=== PATIENT | female | born 1970 | race Caucasian/White ===

== ENCOUNTER 2017-09-06 10:21 | Emergency (ER) | payer BC, SELFPAY | END 2017-09-06 12:20 | disposition home or self-care (01) | PROVIDERS: Emergency Provider Emergency Medicine; Family Provider Internal Medicine Adolescent Medicine; Visit Provider Emergency Medicine | DX: R51 Headache (principal); Z86.69 Personal history of other diseases of the nervous system and sense organs | CPT/HCPCS: 70450; 96372; 99284 ==

== ENCOUNTER → 2017-09-21 09:58 | Outpatient (CLI) | payer BC, SELFPAY ==
[2017-09-21 11:34] LABS: Thyroid Stimulating Hormone 1.58 uIU/ml (0.358-3.740)
[2017-09-22 19:43] LABS: FSH 85.2 mIU/mL (.); LH 74.8 mIU/mL (.)
== END ==
PROVIDERS: PCP Internal Medicine Adolescent Medicine; Visit Provider Internal Medicine Adolescent Medicine
DX: R23.2 Flushing (principal); R63.1 Polydipsia
CPT/HCPCS: 36415; 83001; 83002; 83036; 84443

== ENCOUNTER → 2018-03-11 08:37 | Outpatient (CLI) | payer BC, SELFPAY ==
--- NOTE | 2018-03-11 08:42 | FL_ITS ---
FL upper GI esophagus w/air HISTORY: knot in throat with voice changing ORDERING PHYSICIAN: Giovanny Fernando MD PATIENT AGE: 47 years Comparison: None FINDINGS: The esophagus, stomach, and duodenum have an unremarkable appearance. There is no evidence of hiatal hernia. No ulcer or mass evident. No mucosal abnormalities apparent. There is normal peristalsis. The duodenal C-loop is nondisplaced. There was minimal amount of gastroesophageal reflux. No hiatal hernia apparent FLUOROSCOPY TIME : 1 minute and 39 seconds. IMPRESSION: Mild GE reflux otherwise negative GI and barium swallow
== END ==
PROVIDERS: Family Provider Internal Medicine Adolescent Medicine; PCP Internal Medicine Adolescent Medicine; Visit Provider Internal Medicine Adolescent Medicine
DX: K21.9 Gastro-esophageal reflux disease without esophagitis (principal); R13.14 Dysphagia, pharyngoesophageal phase
CPT/HCPCS: 74241

== ENCOUNTER → 2018-06-05 09:50 | Outpatient (CLI) | payer BC, SELFPAY ==
--- NOTE | 2018-06-05 09:52 | XR_ITS ---
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 No lytic or blastic change. There is normal mineralization.. The joint spaces are well-preserved. No significant degenerative/arthritic changes. No erosive changes evident. IMPRESSION: Negative, no acute finding
== END ==
PROVIDERS: PCP Internal Medicine Adolescent Medicine; Visit Provider Orthopaedic Surgery
DX: S99.929A Unspecified injury of unspecified foot, initial encounter (principal)
CPT/HCPCS: 73630

== ENCOUNTER 2018-06-05 10:46 | Outpatient (RCR) | payer BC, SELFPAY | END 2018-06-06 09:51 | disposition home or self-care (01) | LOC: PT 10:46 | PROVIDERS: Visit Provider Orthopaedic Surgery | DX: S82.91XA Unspecified fracture of right lower leg, initial encounter for closed fracture (principal) | CPT/HCPCS: 97760 ==

== ENCOUNTER → 2018-06-12 13:18 | Outpatient (CLI) | payer BC, SELFPAY ==
--- NOTE | 2018-06-12 13:20 | XR_ITS ---
XR foot RT min 3V HISTORY: Right foot pain ITS.REASON: 1 week follow up ORDERING PHYSICIAN: Kelvin Vela MD PATIENT AGE: 47 years COMPARISON: None FINDINGS: No fracture or dislocation. No lytic or blastic change. There is normal mineralization.. The joint spaces are well-preserved. No significant degenerative/arthritic changes. No erosive changes evident. Vein calcification is present along the base of the small calcaneal spur nonspecific and unchanged IMPRESSION: No acute finding
== END ==
PROVIDERS: PCP Internal Medicine Adolescent Medicine; Visit Provider Orthopaedic Surgery
DX: S82.61XA Displaced fracture of lateral malleolus of right fibula, initial encounter for closed fracture (principal); S82.839A Other fracture of upper and lower end of unspecified fibula, initial encounter for closed fracture
CPT/HCPCS: 73630

== ENCOUNTER → 2018-06-20 10:10 | Outpatient (CLI) | payer BC, SELFPAY ==
--- NOTE | 2018-06-20 10:11 | XR_ITS ---
XR ankle RT min 3V HISTORY: Follow-up fracture, pain ITS.REASON: follow up ORDERING PHYSICIAN: Kelvin Vela MD PATIENT AGE: 47 years Comparison: 05/31/2018 FINDINGS: There is been no significant change in the avulsion fracture at the tip of the lateral malleolus along with a nondisplaced cortical fracture involving the distal fibula near the level the ankle joint. IMPRESSION: No change avulsion fracture of the tip of the lateral malleolus along with a nondisplaced transverse fracture of the metaphyseal region of the distal fibula
== END ==
PROVIDERS: PCP Internal Medicine Adolescent Medicine; Visit Provider Orthopaedic Surgery
DX: S82.61XA Displaced fracture of lateral malleolus of right fibula, initial encounter for closed fracture (principal); S82.839A Other fracture of upper and lower end of unspecified fibula, initial encounter for closed fracture
CPT/HCPCS: 73610

== ENCOUNTER → 2018-06-28 10:50 | Outpatient (CLI) | payer BC, SELFPAY ==
[2018-06-28 12:16] LABS: Basophils # 0.1 K/mm3 (0-0.2); Basophils % 0.8 % (0.1-2.0); Eosinophils # 0.2 K/mm3 (0.0-0.4); Eosinophils % 3.1 % (0.1-12.0); Hematocrit 36.3 % (37.0-47.0); Hemoglobin 12.6 g/dL (12.2-16.2); Lymphocytes # 1.9 K/mm3 (0.7-4.5); Lymphocytes % 26.6 K/mm3 (10-50); Mean Corpuscular HGB Conc 34.7 g/dL (31.8-35.4); Mean Corpuscular Hemoglobin 32.1 pg (27.0-31.2); Mean Corpuscular Volume 92.4 fl (81-99); Mean Platelet Volume 6.6 fl (7.4-10.4); Monocytes # 0.3 K/mm3 (0.1-1.0); Monocytes % 4.7 % (1.7-9.3); Neutrophils # 4.7 K/mm3 (1.8-7.8); Neutrophils % 64.9 % (37.0-80.0); Platelet Count 357 K/mm3 (142-424); Red Blood Count 3.93 M/mm3 (4.20-5.40); Red Cell Distribution Width 13.8 % (11.5-17.5); White Blood Count 7.2 K/mm3 (4.8-10.8)
[2018-06-28 13:09] LABS: Alanine Aminotransferase 21 U/L (12-78); Albumin Level 3.4 gm/dL (3.4-5.0); Alkaline Phosphatase 121 U/L (46-116); Anion Gap 10.4 mEq/L (5-15); Aspartate Amino Transferase 15 U/L (15-37); Bilirubin,Total 0.4 mg/dL (0.2-1.0); Blood Urea Nitrogen 18 mg/dL (7-18); Calcium 8.9 mg/dL (8.5-10.1); Carbon Dioxide 29 mmol/L (21.0-32.0); Chloride 104 mmol/L (98-107); Chol/HDL Ratio 3.2 (1-3.5); Cholesterol 245 mg/dL (140-200); Creatinine,Serum 0.67 mg/dL (0.55-1.02); Estimated Glomerular Filt Rate 95 ml/min (>60); Free Thyroxine Index 3.2 ug/dL (5.93-13.13); GFR (African American) 115 ML/MIN (>60); Globulin 3.4 gm/dl (1.3-3.2); Glucose 88 mg/dL (74-106); HDL Cholesterol 76 mg/dL (29-89); LDL Cholesterol 158 mg/dL (0-130); Potassium 4.4 mmoL/L (3.5-5.1); Sodium 139 mmol/L (136-145); Thyroid Stimulating Hormone 2.62 uIU/ml (0.358-3.740); Total Protein,Serum 6.8 gm/dL (6.4-8.2); Triglycerides 54 mg/dL (30-200); Triiodothryronine (T3) Uptake 32 % (31-39); VLDL Cholesterol 11 mg/dL (0-40)
[2018-06-30 07:54] LABS: Vitamin B12 1052 pg/mL (232-1245); Vitamin D 25 Hydroxy 23.9 ng/mL (30.0-100.0)
== END ==
PROVIDERS: PCP Internal Medicine Adolescent Medicine; Visit Provider Internal Medicine Adolescent Medicine
DX: R73.9 Hyperglycemia, unspecified (principal); R53.83 Other fatigue; E53.8 Deficiency of other specified B group vitamins; E55.9 Vitamin D deficiency, unspecified
CPT/HCPCS: 36415; 80053; 80061; 82607; 82652; 83036; 84436; 84443; 84479; 85025

== ENCOUNTER → 2018-07-03 08:47 | Outpatient (CLI) | payer BC, SELFPAY ==
--- NOTE | 2018-07-03 08:50 | FL_ITS ---
EXAM: Barium swallow/esophagram. INDICATION: ITS.REASON: Dsyphagia, prior esophageal stricture dilatation ORDERING PHYSICIAN: Jori Castro MD PATIENT AGE: 47 years COMPARISON: None TECHNIQUE: In the upright position the patient was observed to swallow barium in both the AP and lateral view. The cervical esophagus was examined under fluoroscopy with images obtained. The patient was then placed prone in the right anterior oblique position and was observed to swallow barium with Valsalva technique . FLUOROSCOPY TIME: 38 seconds FINDINGS: There was no evidence of aspiration. There was normal peristalsis. No filling defects or mucosal abnormalities. No masses or strictures. No hernia. No strictures apparent. Reflux was not demonstrated in the course of the exam. Esophagus was midline. IMPRESSION: Negative barium swallow.
== END ==
PROVIDERS: PCP Internal Medicine Adolescent Medicine; Visit Provider Otolaryngology
DX: R13.10 Dysphagia, unspecified (principal)
CPT/HCPCS: 74220

== ENCOUNTER → 2018-07-11 08:43 | Outpatient (CLI) | payer BC, SELFPAY ==
--- NOTE | 2018-07-11 08:44 | XR_ITS ---
XR ankle RT min 3V HISTORY: Follow-up fracture, pain ITS.REASON: follow up right lateral malleolous fx ORDERING PHYSICIAN: Kelvin Vela MD PATIENT AGE: 47 years Comparison: 06/20/2018 FINDINGS: Avulsion fracture of the tip the lateral malleolus is less distracted suggesting early healing. Otherwise negative. IMPRESSION: Decreased distraction of the avulsion fracture fragment at the tip of the lateral malleolus
== END ==
PROVIDERS: PCP Internal Medicine Adolescent Medicine; Visit Provider Orthopaedic Surgery
DX: S82.61XA Displaced fracture of lateral malleolus of right fibula, initial encounter for closed fracture (principal)
CPT/HCPCS: 73610

== ENCOUNTER → 2018-08-08 10:47 | Outpatient (CLI) | payer BC, SELFPAY ==
--- NOTE | 2018-08-08 10:48 | XR_ITS ---
XR ankle RT min 3V HISTORY: Follow-up fracture ITS.REASON: follow up ORDERING PHYSICIAN: Kelvin Vela MD PATIENT AGE: 47 years Comparison: 07/11/2018 FINDINGS: No change in the nondisplaced avulsion fracture at the tip of the lateral malleolus. No new abnormalities evident. IMPRESSION: No change in nondisplaced avulsion fracture at the tip of the lateral malleolus
== END ==
PROVIDERS: PCP Internal Medicine Adolescent Medicine; Visit Provider Orthopaedic Surgery
DX: S82.61XA Displaced fracture of lateral malleolus of right fibula, initial encounter for closed fracture (principal)
CPT/HCPCS: 73610

== ENCOUNTER 2018-08-25 13:00 | Outpatient (RCR) | payer BC, SELFPAY ==
--- NOTE | 2018-07-17 13:47 | HMH.PTOPEV ---
PT Outpatient Evaluation Rehab PT Outpatient Evaluation Start: 07/17/18 13:35 Freq: Status: Active Protocol: Document 07/17/18 13:35 SERAFIN (Rec: 07/17/18 13:47 SERAFIN [id number]) Electronically Signed By Federico Kulkarni, PT 07/17/18 13:35 Outpatient Therapy Subjective History Subjective History Pt reports being knocked down by horse on 05/31/18, with Xray revealing fx to R lateral malleolus. Pt reports R ankle, R thigh, and neck pain following accident, with all feeling better in the last 2-3 weeks. Pt reports limitations in R ankle ROM, and strength, reports very little pain. Chief Complaint Pain Stiff Weakness Symptom Type Ache Dull Symptoms Relieved By Rest/Positioning Ice Symptoms Aggravated By Physical Activity Walking Prior Functional Limitations None Current Functional Limitations Standing Walking Stairs Symptom Description Intermittent Level of pain today (0-10) 0 Pain scale - at its best (0-10) 0 Pain scale - at its worst (0-10) 3 Ankle/Foot Eval Gait Observation General Gait Pattern Observation Wide Based Gait Palpation Tenderness right Ankle/Foot Palpation Findings Tenderness Ankle/Foot Palpation Overall Comment 2-3/4 lateral jt line, sinus tarsi ATF TTP positive PTF TTP positive CF TTP positive ROM left Ankle/Foot Dorsiflexion w/Knee Extended 0-15 Active Range Motion (degrees) Ankle/Foot Plantar Flexion Active Range 0-50 of Motion (degrees) Ankle/Foot Eversion Active Range of 0-20 Motion (degrees) Ankle/Foot Inversion Active Range of 0-50 Motion (degrees) right Ankle/Foot Dorsiflexion w/Knee Extended 0-10 Active Range Motion (degrees) Ankle/Foot Plantar Flexion Active Range 0-50 of Motion (degrees) Ankle/Foot Eversion Active Range of 0-10 Motion (degrees) Ankle/Foot Inversion Active Range of 0-25 Motion (degrees) Ankle/Foot ROM Limitations Soft Tissue Tightness MMT left Ankle Dorsiflexion Strength Grade 5 Normal Ankle Plantarflexion Strength Grade 5 Normal Foot Eversion Strength Grade 5 Normal Foot Inversion Strength Grade 5 Normal
--- NOTE | 2018-08-15 14:51 | HMH.RHREAS ---
Rehab Reassessment Rehab OP Re-assessment Start: 08/15/18 14:46 Freq: Status: Active Protocol: Document 08/15/18 14:46 SERAFIN (Rec: 08/15/18 14:51 [email or web address] [id number]) Electronically Signed By Federico Kulkarni, PT 08/15/18 14:46 Rehab Re-assessment Subjective Subjective PT REPORT 0-4/10 R ANKLE PAIN ON VAS, AND FEELS 75% BETTER SINCE I EVAL Objective Objective Notes AROM: R ANKLE DF 0-15, PF 0-40 , INV 0-40, EVR 0-25 FIG 8: 56CM MMT: R ANKLE DF 5/5, PF 4+/5, INV 4/5, EVR 4/5 TTP: R ANKLE CF LIG 09/12 Assessment Progress Assessment Progressing as Expected Assessment Notes PT WITH IMPROVEMENTS IN ROM, STRENGTH, AND TTP Patient goals met STG'S 03/16 LTG'S 10/17 Goals Not Met STG'S 09/16, LTG'S 02/14 Plan Plan PT TO CONT. W/SKILLED P.T. TO MAKE FURTHER IMPROVEMENTS IN ROM, STRENGTH, AND TTP TO ALLOW FOR OPTIMAL FUNCTION Frequency of Therapy 1-2/WK Duration of therapy 2-4 WKS Time and Billing Re-Eval Time 15 Re-Eval Billing Units 1 PHYSICIAN CERTIFICATION: I certify the specified therapy services for Sera Matthews are required, authorized, and reviewed every 30 days.
== END 2018-08-25 13:05 | disposition home or self-care (01) ==
LOC: PT 13:00
PROVIDERS: Visit Provider Orthopaedic Surgery
DX: S82.61XA Displaced fracture of lateral malleolus of right fibula, initial encounter for closed fracture (principal)
CPT/HCPCS: 97010; 97014; 97016; 97033; 97110; 97112; 97140; 97163; 97164; G0283

== ENCOUNTER → 2019-02-09 16:47 | Outpatient (CLI) | payer BC, SELFPAY ==
[2019-02-09 17:25] LABS: Basophils # 0.1 K/mm3 (0-0.2); Basophils % 0.8 % (0.1-2.0); Eosinophils # 0.2 K/mm3 (0.0-0.4); Eosinophils % 2.2 % (0.1-12.0); Hematocrit 37.7 % (37.0-47.0); Hemoglobin 12.5 g/dL (12.2-16.2); Lymphocytes # 2.4 K/mm3 (0.7-4.5); Lymphocytes % 29.3 % (10-50); Mean Corpuscular HGB Conc 33.2 g/dL (31.8-35.4); Mean Corpuscular Hemoglobin 28.9 pg (27.0-31.2); Mean Corpuscular Volume 87.1 fl (81-99); Mean Platelet Volume 6.4 fl (7.4-10.4); Monocytes # 0.4 K/mm3 (0.1-1.0); Monocytes % 4.9 % (1.7-9.3); Neutrophils # 5.2 K/mm3 (1.8-7.8); Neutrophils % 62.9 % (37.0-80.0); Platelet Count 343 K/mm3 (142-424); Red Blood Count 4.33 M/mm3 (4.20-5.40); Red Cell Distribution Width 13.4 % (11.5-17.5); White Blood Count 8.2 K/mm3 (4.8-10.8)
[2019-02-09 19:51] LABS: Alanine Aminotransferase 27 U/L (12-78); Albumin Level 3.4 gm/dL (3.4-5.0); Albumin/Globulin Ratio 1.1 (1.1-1.8); Alkaline Phosphatase 118 U/L (46-116); Aspartate Amino Transferase 14 U/L (15-37); Bilirubin,Total 0.2 mg/dL (0.2-1.0); Blood Urea Nitrogen 20 mg/dL (7-18); Carbon Dioxide 25 mmol/L (21.0-32.0); Chloride 104 mmol/L (98-107); Chol/HDL Ratio 3.8 (1-3.5); Cholesterol 188 mg/dL (140-200); Creatinine,Serum 0.63 mg/dL (0.55-1.02); Estimated Glomerular Filt Rate 101 ml/min (>60); GFR (African American) 123 ML/MIN (>60); Globulin 3.1 gm/dl (1.3-3.2); Glucose 93 mg/dL (74-106); HDL Cholesterol 50 mg/dL (29-89); LDL Cholesterol 125 mg/dL (0-130); Sodium 141 mmol/L (136-145); Total Protein,Serum 6.5 gm/dL (6.4-8.2); Triglycerides 63 mg/dL (30-200); VLDL Cholesterol 13 mg/dL (0-40)
[2019-02-13 06:23] LABS: Vitamin B12 582 pg/mL (232-1245); Vitamin D 25 Hydroxy 38.4 ng/mL (30.0-100.0)
== END ==
PROVIDERS: Visit Provider Internal Medicine Adolescent Medicine
DX: Z00.00 Encounter for general adult medical examination without abnormal findings (principal); E53.8 Deficiency of other specified B group vitamins; E55.9 Vitamin D deficiency, unspecified
CPT/HCPCS: 80053; 80061; 82607; 82652; 85025

== ENCOUNTER 2019-08-20 16:28 | Outpatient (RCR) | payer BC, SELFPAY | END 2019-08-20 16:45 | disposition home or self-care (01) | LOC: PT 16:28 | PROVIDERS: Visit Provider Internal Medicine Adolescent Medicine | DX: M84.375D Stress fracture, left foot, subsequent encounter for fracture with routine healing (principal) | CPT/HCPCS: 97760 ==

== ENCOUNTER → 2019-08-28 15:50 | Outpatient (CLI) | payer BC, SELFPAY ==
--- NOTE | 2019-08-28 15:52 | MR_ITS ---
PROCEDURE: MR FOOT LT WO CON CLINICAL INDICATION: STRESS FX OF LEFT FOOT Lateral sided foot pain worse when walking COMPARISON: XR FOOT LT MIN 3V from 08/11/2019 TECHNIQUE: Routine multiplanar multi echo sequences are performed without gadolinium enhancement. FINDINGS: The tibiofibular and talofibular ligaments appear intact. There is increased T2 signal involving the entire length of the 5th metatarsal. There is a transverse area of decreased T2 signal in the proximal shaft of the 5th metatarsal consistent with a nondisplaced fracture. There is some mild surrounding edema of the soft tissues of the 5th metatarsal. Small amount of fluid is present along the talocalcaneal region posteriorly and along the the tibiofibular area anteriorly. The Achilles tendon has an unremarkable appearance. The peroneal tendons posterior tibial flexor hallucis longus, flexor digitorum longus and extensor tendons have an unremarkable appearance IMPRESSION: Nondisplaced fracture at the proximal aspect of the 5th metatarsal with a moderate amount of bone marrow edema and surrounding soft tissue edema Dictated by: Lakhwinder Mesa MD 08/30/2019 19:51 Electronically signed by Lakhwinder Mesa MD in [place] 08/30/2019 19:51
== END ==
PROVIDERS: PCP Internal Medicine Adolescent Medicine; Visit Provider Internal Medicine Adolescent Medicine
DX: M84.375D Stress fracture, left foot, subsequent encounter for fracture with routine healing (principal)
CPT/HCPCS: 73718

== ENCOUNTER → 2019-09-14 16:32 | Outpatient (CLI) | payer BC, SELFPAY ==
--- NOTE | 2019-09-14 | XR_ITS ---
PROCEDURE: XR CHEST 2V CLINICAL HISTORY: FAMILY HX OF CAD; PREOP COMPARISON: [id number] XR chest portable from 05/31/2018 FINDINGS: The cardiomediastinal silhouette and pulmonary vascularity are within normal limits. The lungs are clear without infiltrates, suspicious nodules, or pleural effusions. There is evidence of old granulomatous disease. There is some faint increased density in the left lung base at the 6th rib anteriorly and may be due to summation artifact and may be confirmed follow-up. There are degenerative changes in the midthoracic spine. IMPRESSION: No definite acute finding. Possible summation artifact versus pulmonary nodule left lower lung zone which may be confirmed with follow-up Dictated by: Lakhwinder Mesa MD 09/14/2019 19:30 Electronically signed by Lakhwinder Mesa MD in [place] 09/14/2019 19:30
[2019-09-14 16:51] LABS: Basophils # 0.1 K/mm3 (0-0.2); Basophils % 0.6 % (0.1-2.0); Eosinophils # 0.2 K/mm3 (0.0-0.4); Hematocrit 43.5 % (37.0-47.0); Hemoglobin 13.4 g/dL (12.2-16.2); Lymphocytes # 3.1 K/mm3 (0.7-4.5); Lymphocytes % 29.3 % (10-50); Mean Corpuscular HGB Conc 30.8 g/dL (31.8-35.4); Mean Corpuscular Hemoglobin 28.1 pg (27.0-31.2); Mean Corpuscular Volume 91.4 fl (81-99); Mean Platelet Volume 6.6 fl (7.4-10.4); Monocytes # 0.4 K/mm3 (0.1-1.0); Monocytes % 3.9 % (1.7-9.3); Neutrophils # 6.8 K/mm3 (1.8-7.8); Neutrophils % 64.2 % (37.0-80.0); Platelet Count 436 K/mm3 (142-424); Red Blood Count 4.76 M/mm3 (4.20-5.40); White Blood Count 10.7 K/mm3 (4.8-10.8)
--- NOTE | 2019-09-14 16:51 | ECG_ITS ---
APPROVED REPORT Exam: Resting ECG HR:78 bpm ECG Measurements Heart Rate 78 AXES MA 152 P 45 QRSd 144 QRS -39 QT 402 T 95 QTc 458 <Conclusion> Normal sinus rhythm Left axis deviation Left bundle branch block Abnormal ECG Electronically signed by : Oneal Castro, 09/14/2019 18:39:16
[2019-09-14 20:56] LABS: Alanine Aminotransferase 18 U/L (12-78); Albumin Level 3.8 gm/dL (3.4-5.0); Albumin/Globulin Ratio 1.2 (1.1-1.8); Alkaline Phosphatase 151 U/L (46-116); Anion Gap 14.2 mEq/L (5-15); Aspartate Amino Transferase 11 U/L (15-37); Bilirubin,Total 0.1 mg/dL (0.2-1.0); Blood Urea Nitrogen 18 mg/dL (7-18); Carbon Dioxide 29 mmol/L (21.0-32.0); Chloride 104 mmol/L (98-107); Creatinine,Serum 0.89 mg/dL (0.55-1.02); Estimated Glomerular Filt Rate 68 ml/min (>60); GFR (African American) 82 ML/MIN (>60); Globulin 3.3 gm/dl (1.3-3.2); Glucose 91 mg/dL (74-106); Potassium 4.2 mmoL/L (3.5-5.1); Sodium 143 mmol/L (136-145); Total Protein,Serum 7.1 gm/dL (6.4-8.2)
[2019-09-16 11:06] LABS: Vitamin D 25 Hydroxy 37.8 ng/mL (30.0-100.0)
== END ==
PROVIDERS: Visit Provider Podiatrist
DX: S99.192A Other physeal fracture of left metatarsal, initial encounter for closed fracture (principal); Z01.818 Encounter for other preprocedural examination; M84.375G Stress fracture, left foot, subsequent encounter for fracture with delayed healing
CPT/HCPCS: 36415; 71046; 80053; 82652; 85025; 93005

== ENCOUNTER → 2019-09-29 08:10 | Outpatient (CLI) | payer BC, SELFPAY ==
--- NOTE | 2019-09-29 08:13 | XR_ITS ---
PROCEDURE: XR ANKLE WT BEARING LT MIN 3V CLINICAL INDICATION: post-op COMPARISON: ANKCMRT XR ankle RT min 3V from 06/20/2018 ANKCMRT XR ankle RT min 3V from 07/11/2018 ANKCMRT XR ankle RT min 3V from 08/08/2018 FINDINGS: There is a posterior plaster splint. A reduction screw appears to lie along the longitudinal axis of the proximal 5th metatarsal. No acute fracture or dislocation is apparent. IMPRESSION: No acute findings. Dictated by: Erik Leiva 09/29/2019 08:56 Electronically signed by Erik Leiva in [place] 09/29/2019 08:56
--- NOTE | 2019-09-29 08:13 | XR_ITS ---
PROCEDURE: XR FOOT WT BEARING LT 3V CLINICAL INDICATION: post-op Stress fracture with reduction screw through the 5th metatarsal COMPARISON: [id number] XR foot RT min 3V from 06/12/2018 XR FOOT LT MIN 3V from 08/11/2019 XR FOOT LT 2V from 09/15/2019 XR FOOT LT MIN 3V from 09/15/2019 FINDINGS: Images were obtained through a posterior splint which obscures fine bone detail. A metallic reduction screw is seen extending along the longitudinal axis of the 5th metatarsal. There is near anatomical positioning. A discrete fracture line is not seen. No other significant interval changes are apparent. IMPRESSION: No acute findings. Anatomical alignment of the 5th metatarsal. Dictated by: Erik Leiva 09/29/2019 08:59 Electronically signed by Erik Leiva in [place] 09/29/2019 08:59
--- NOTE | 2019-09-29 08:13 | XR_ITS ---
PROCEDURE: XR FOOT WT BEARING RT 3V CLINICAL INDICATION: ankle pain and instability COMPARISON: [id number] XR foot RT min 3V from 06/12/2018 XR FOOT LT MIN 3V from 08/11/2019 XR FOOT LT 2V from 09/15/2019 XR FOOT LT MIN 3V from 09/15/2019 FINDINGS: No fracture or dislocation. No lytic or blastic change. There is normal mineralization. Mild osteoarthritis is present at the 1st metatarsophalangeal joint. The joint spaces otherwise are well-preserved. No erosive changes evident. 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 A small degenerative plantar calcaneal spur is noted. IMPRESSION: No acute findings. Degenerative findings as described. Dictated by: Erik Leiva 09/29/2019 08:53 Electronically signed by Erik Leiva in [place] 09/29/2019 08:53
--- NOTE | 2019-09-29 08:13 | XR_ITS ---
PROCEDURE: XR ANKLE WT BEARING RT MIN 3V CLINICAL INDICATION: ankle pain and instability COMPARISON: ANKCMRT XR ankle RT min 3V from 06/20/2018 ANKCMRT XR ankle RT min 3V from 07/11/2018 ANKCMRT XR ankle RT min 3V from 08/08/2018 FINDINGS: There is no acute fracture dislocation or other focal bony lesion. Tibiotalar joint space appears slightly narrowed anteriorly. Mild osteoarthritis is suspected. A degenerative plantar calcaneal spur is noted. IMPRESSION: No acute findings. Suspect mild osteoarthritis tibiotalar joint space. Dictated by: Erik Leiva 09/29/2019 08:49 Electronically signed by Erik Leiva in [place] 09/29/2019 08:49
== END ==
PROVIDERS: PCP Internal Medicine Adolescent Medicine; Visit Provider Orthopaedic Surgery
DX: Z98.890 Other specified postprocedural states (principal); M25.371 Other instability, right ankle; M25.571 Pain in right ankle and joints of right foot
CPT/HCPCS: 73610; 73630

== ENCOUNTER → 2019-10-15 09:23 | Outpatient (CLI) | payer BC, SELFPAY ==
--- NOTE | 2019-10-15 09:26 | XR_ITS ---
PROCEDURE: XR FOOT WT BEARING LT 3V CLINICAL INDICATION: post-op Postoperative swelling COMPARISON: XR FOOT LT MIN 3V from 08/11/2019 MR FOOT LT WO CON from 08/28/2019 XR FOOT LT 2V from 09/15/2019 XR FOOT LT MIN 3V from 09/15/2019 XR FOOT WT BEARING LT 3V from 09/29/2019 XR FOOT WT BEARING RT 3V from 09/29/2019 FINDINGS: There is a longitudinal screw through the proximal aspect of the 5th metatarsal. There is some callus formation along the medial aspect of the mid shaft of the 5th metatarsal. There is good alignment. IMPRESSION: Good alignment status post ORIF 5th metatarsal. There is some minimal callus formation at the mid aspect of the 5th metatarsal medially Dictated by: Lakhwinder Mesa MD 10/15/2019 13:35 Electronically signed by Lakhwinder Mesa MD in [place] 10/15/2019 13:35
== END ==
PROVIDERS: PCP Internal Medicine Adolescent Medicine; Visit Provider Podiatrist
DX: Z98.890 Other specified postprocedural states (principal); S99.192A Other physeal fracture of left metatarsal, initial encounter for closed fracture; M84.375G Stress fracture, left foot, subsequent encounter for fracture with delayed healing
CPT/HCPCS: 73630

== ENCOUNTER → 2019-11-02 11:29 | Outpatient (CLI) | payer BC, SELFPAY ==
--- NOTE | 2019-11-02 11:34 | XR_ITS ---
PROCEDURE: XR ANKLE WT BEARING LT MIN 3V CLINICAL INDICATION: left ankle injury Posttraumatic pain COMPARISON: ANKCMRT XR ankle RT min 3V from 08/08/2018 XR ANKLE LT MIN 3V from 09/15/2019 XR ANKLE WT BEARING RT MIN 3V from 09/29/2019 FINDINGS: No fracture, dislocation, lytic change, or blastic change evident. No significant degenerative change. There is mild subarticular osteopenia of the talar dome and distal tibia. There is mild soft tissue swelling medially and laterally. Status post ORIF 5th metatarsal. The splint has been removed IMPRESSION: Soft tissue swelling with subarticular osteopenia, no acute finding Dictated by: Lakhwinder Mesa MD 11/02/2019 12:10 Electronically signed by Lakhwinder Mesa MD in [place] 11/02/2019 12:10
== END ==
PROVIDERS: PCP Internal Medicine Adolescent Medicine; Visit Provider Podiatrist
DX: Z98.890 Other specified postprocedural states (principal); S99.192G Other physeal fracture of left metatarsal, subsequent encounter for fracture with delayed healing
CPT/HCPCS: 73610

== ENCOUNTER → 2020-02-25 08:13 | Outpatient (CLI) | payer BC, SELFPAY ==
[2020-02-25 10:43] LABS: Coronavirus 19 IgG Antibody Negative (Negative); Coronavirus 19 IgM Antibody Negative (Negative)
== END ==
PROVIDERS: Visit Provider Internal Medicine Gastroenterology
DX: Z01.818 Encounter for other preprocedural examination (principal)
CPT/HCPCS: 36415; 86328

== ENCOUNTER 2020-02-26 10:34 | Day surgery (SDC) | payer BC, SELFPAY ==
[2020-02-23 10:04] VITALS: BMI 31.3
[2020-02-26] VITALS (8 sets, daily range): BP systolic 112–154; BP diastolic 73–95; PULSE 55–88; RESP 18; TEMP 36.2–36.4; O2SAT 97–100
--- NOTE | 2020-02-26 11:14 | P.PCN_ITS ---
[facility] Procedure Note Procedure Note:: Colonoscopy Procedure Report: Colonoscopy with hemorrhoid band ligation Endoscopist: True Mcginnis II, MD Referring physician: Giovanny Fernando M.D. Date of Procedure: February 26, 2020 Equipment: Olympus 180 variable stiffness pediatric colonoscope Sedation: MAC sedation Indication: Mrs. Matthews is a 49-year-old female with rectal bleeding 2-3 times weekly. This is bright red blood but not mixed with the stool and coating the outside of the bowel movement. She does have some rectal or hemorrhoidal pro lapse. She does report some chronic constipation with gassiness, bloating and lower abdominal discomfort. She reports no weight loss or family history of colon cancer. Procedure: Prior to the procedure, a history and physical exam was performed, and patient's medications and allergies were reviewed. The risks, benefits and alternatives of the sedation and procedure were discussed with the patient. All questions were answered and informed consent was obtained. The patient was brought to the procedure room. Patient identification and proposed procedure were verified by the physician and the nurse. The patient was placed in a left lateral decubitus position and the scope was passed under direct vision. Throughout the procedure, the patient's blood pressure, pulse, and oxygen saturations were monitored continuously. The colonoscopy was accomplished without difficulty. The patient tolerated the procedure well. Findings: On digital rectal examination there was normal rectal tone. There were no external hemorrhoids. The colonoscope was introduced through the anal canal to the rectum and advanced to the cecum. The ileocecal valve and appendiceal orifice were identified. The scope was advanced a short distance into the ileum which appeared grossly normal. The scope was then withdrawn into the colon. The cecum, ascending and transverse colon and mucosa were grossly normal. There were scattered diverticuli throughout the descending and sigmoid colon (LEFT colon). The rectum itself was normal. Upon retroflexion within the rectum there were grade 2-3 internal hemorrhoids. These were banded using 3 bands with excellent ligation effect the preparation was excellent throughout with [place] Preparation Score of 9. The cecal time was 11 minutes. Impression: 1. Left-sided diverticulosis 2. Grade 2-3 internal hemorrhoids status post band ligation x3 Plan: I will encourage a fiber bowel regimen on a long-term daily maintenance basis. The patient will not require surveillance colonoscopy again for 10 years by ACS guidelines.
--- NOTE | 2020-02-26 11:27 | HMH.ANESCL ---
[facility] Anesthesia Checklist - Patient Identification Patient Identification: Arm Band, Verbal (Name & ) - Structural Data Admitted From: Home Planned Operative Procedure/s: Colonoscopy Consent for Planned Operative Procedure(s) Verified: Yes Verified Documents: Surgical Consent, History and Physical - NPO Status Verified Time NPO: 00:00 - Chart Verification Results Verified: None - Additional verifications Anesthesia Reactions: No Hx Blood Transfusions: No Blood Transfusion Reaction: No - Airway Assessment C-Spine Mobility Assessed: Yes TMJ Mobility Assessed: Yes Dentition: Dentures-good fit - Neurological Assessment Level of Consciousness: Awake, Alert, Appropriate, Follows Commands Hx Seizures: No Numbness or tingling in extremities: No - Anesthesia Plan Anesthesia Risk discussed: Yes Anesthesia Plan: Verified ASA Class: III Anesthesia Type: MAC [facility] History I have reviewed the patient's past medical history: Yes Medical History: Reports:: Chronic Obstructive Pulmonary Disease (COPD), Depression, Gastroesophageal Reflux Disease(GERD), Migraine Denies:: Cancer, Diabetes Mellitus Type 1, Diabetes Mellitus Type 2, Internal Pacemaker, MRSA, Seizures *Have you ever received a pneumonia vaccine?: No *Have you received a flu vaccine this season?: Yes Other Medical History: Reports: Sinus Problems. Denies: Blood Transfusion Reaction Anesthesia experience/problems:: No prior complications Laterality Cases: Left: Carotid Endarterectomy, Bilateral: Tonsillectomy, Other Other Surgeries: Yes: Hysterectomy-Total. No: Pacemaker Amputation: No Fractures: Yes - *Social History Educational Level: Completed High School Smoking Status: Never smoker Tobacco Type: cigarettes Alcohol Intake: never Substance Use Type: denies use *Occupational Status:: employed Housing: house Household Members: significant other *Travel in the last 8 weeks: None Family Hx:: Hypertension, Hyperlipidemia, Stroke, Diabetes, Coronary Artery Disease
== END 2020-02-26 12:47 | disposition home or self-care (01) ==
LOC: OUTP 10:36
PROVIDERS: PCP Internal Medicine Adolescent Medicine; Visit Provider Internal Medicine Gastroenterology
PROC: 0DJD8ZZ Inspection of Lower Intestinal Tract, Via Natural or Artificial Opening Endoscopic (ICD-10-PCS; CPT 45378; principal; 2020-02-26 11:30)
DX: K57.30 Diverticulosis of large intestine without perforation or abscess without bleeding (principal); K64.1 Second degree hemorrhoids; J44.9 Chronic obstructive pulmonary disease, unspecified; F32.9 Major depressive disorder, single episode, unspecified; Z90.710 Acquired absence of both cervix and uterus; K21.9 Gastro-esophageal reflux disease without esophagitis; G43.909 Migraine, unspecified, not intractable, without status migrainosus; Z90.89 Acquired absence of other organs; Z82.3 Family history of stroke; Z83.3 Family history of diabetes mellitus; Z82.49 Family history of ischemic heart disease and other diseases of the circulatory system; Z83.438 Family history of other disorder of lipoprotein metabolism and other lipidemia
CPT/HCPCS: 45398

== ENCOUNTER → 2020-05-10 16:02 | Outpatient (CLI) | payer BC, SELFPAY ==
--- NOTE | 2020-05-10 16:04 | MM_ITS ---
PROCEDURE: MM DIG SCREENING MAMM BI W/CAD Digital Breast Tomosynthesis Included CLINICAL INDICATION: SCREENING There is no personal or family history of breast cancer. COMPARISON: MG DMSB DIG MAMM-SCREEN ANGIE from 02/08/2016 TECHNIQUE: Standard CC and MLO images and 3D Tomosynthesis was obtained. R2 CAD reviewed. FINDINGS: The breasts are composed primarily of fat with minimal scattered fibroglandular densities throughout. There has been some additional fatty involution of the breast parenchyma when compared to the previous study 02/08/2016. There is no suspicious lesion and no suspicious microcalcifications. There are few normal size nodes in both axilla. IMPRESSION: Fibrofatty parenchyma with no suspicious lesions seen BI-RAD Category: 1 Negative FOLLOW-UP: 1YR 1 Year Follow-up (A letter has been sent to the patient regarding results of the study.) Dictated by: Dr. Apolinar Turner MD 05/12/2020 11:55 Dr. Apolinar Turner MD in [place] 05/12/2020 11:55
== END ==
PROVIDERS: PCP Internal Medicine Adolescent Medicine; Visit Provider Internal Medicine Adolescent Medicine
DX: Z12.31 Encounter for screening mammogram for malignant neoplasm of breast (principal)
CPT/HCPCS: 77063; 77067

== ENCOUNTER → 2020-06-04 09:48 | Outpatient (CLI) | payer BC, SELFPAY ==
[2020-06-04 11:36] LABS: Coronavirus 19 IgG Antibody Negative (Negative); Coronavirus 19 IgM Antibody Negative (Negative)
== END ==
PROVIDERS: Visit Provider Internal Medicine Gastroenterology
DX: Z01.89 Encounter for other specified special examinations (principal); Z13.810 Encounter for screening for upper gastrointestinal disorder
CPT/HCPCS: 36415; 86328

== ENCOUNTER 2020-06-06 10:17 | Day surgery (SDC) | payer BC, SELFPAY ==
[2020-06-01 08:28] VITALS: BMI 32.5
[2020-06-06 10:43] VITALS: BP 121/75; PULSE 56; RESP 18; TEMP 36.2; O2SAT 94
--- NOTE | 2020-06-06 10:54 | HMH.ANESCL ---
[facility] Anesthesia Checklist - Patient Identification Patient Identification: Arm Band - Structural Data Admitted From: Home Planned Operative Procedure/s: egd Consent for Planned Operative Procedure(s) Verified: Yes Verified Documents: Surgical Consent, History and Physical - NPO Status Verified Time NPO: 00:00 - Additional verifications Anesthesia Reactions: No Hx Blood Transfusions: No Blood Transfusion Reaction: No - Airway Assessment C-Spine Mobility Assessed: Yes (mp2) TMJ Mobility Assessed: Yes Dentition: Edentulous - Neurological Assessment Level of Consciousness: Awake, Alert - Anesthesia Plan Anesthesia Risk discussed: Yes Anesthesia Plan: Verified ASA Class: II Anesthesia Type: MAC [facility] History I have reviewed the patient's past medical history: Yes Medical History: Reports:: Chronic Obstructive Pulmonary Disease (COPD), Depression, Gastroesophageal Reflux Disease(GERD), Migraine Denies:: Cancer, Diabetes Mellitus Type 1, Diabetes Mellitus Type 2, Internal Pacemaker, MRSA, Seizures *Have you ever received a pneumonia vaccine?: No *Have you received a flu vaccine this season?: Yes Other Medical History: Reports: Sinus Problems. Denies: Blood Transfusion Reaction Anesthesia experience/problems:: nac Laterality Cases: Left: Carotid Endarterectomy, Bilateral: Tonsillectomy, Other Other Surgeries: Yes: Hysterectomy-Total. No: Pacemaker Amputation: No Fractures: Yes - *Social History Last grade of school completed: High school graduate Smoking Status: Never smoker Tobacco Type: cigarettes Alcohol Intake: never Substance Use Type: denies use *Occupational Status:: employed Housing: house Household Members: significant other *Travel in the last 8 weeks: None - Psychiatric History Pschychiatric History:: Reports:: Depression Family Hx:: Hypertension, Hyperlipidemia, Stroke, Diabetes, Coronary Artery Disease
[2020-06-06 12:37] VITALS: O2SAT 94
--- NOTE | 2020-06-06 12:59 | P.PCN_ITS ---
[facility] Procedure Note Procedure Note:: Upper Endoscopy Procedure Report: Esophagogastroduodenoscopy with cold biopsies and TTS balloon dilation Endoscopost: True Mcginnis II, MD Referring Physician: Giovanny Fernando M.D. Date of Procedure: June 06, 2020 Equipment: Olympus GIF 180 standard upper endoscope Sedation: MAC sedation Indications: Mrs. Matthews is a 49-year-old female with globus sensation and intermittent dysphagia to breads and pills. She also has some intermittent dyspepsia with epigastric abdominal discomfort, bloating, belching, nausea and early satiety. She has some heartburn. The patient does take pantoprazole 40 mg by mouth daily. She did have esophageal dilation 20 years ago (Dr. Jori Castro). The patient did have a colonoscopy with ut in February 2020 and had hemorrhoid band ligation at that time. The patient does have more regulated bowel function. Procedure: Prior to the procedure, a history and physical exam was performed, and patient's medications and allergies were reviewed. The risks, benefits and alternatives of the sedation and procedure were discussed with the patient. All questions were answered and informed consent was obtained. The patient was brought to the procedure room. Patient identification and proposed procedure were verified by the physician and the nurse. The patient was placed in a left lateral decubitus position and the scope was passed under direct vision. Throughout the procedure, the patient's blood pressure, pulse, and oxygen saturations were monitored continuously. The upper GI endoscopy was accomplished without difficulty. The patient tolerated the procedure well. Findings: The scope was passed directly into the upper esophagus and advanced to the third portion of the duodenum. The post bulbar duodenum and duodenal bulb were normal with normal mucosa and conniventes. The scope was withdrawn through a normal duodenal bulb and pylorus into the stomach. There was some moderate linear reactive gastropathy/erosive gastropathy of the antrum and body of the stomach. The fundus of the stomach was normal. Upon retroflexion there was no hiatal hernia. Cold biopsies were taken from both the antrum and body of the stomach separately to rule out gastritis and H. pylori. The scope was then withdrawn into the esophagus. There was no evidence of reflux esophagitis or Vang's. There was no Schatzki's ring. There were tertiary contractions and evidence of moderate esophageal dysmotility. The entire esophagus was dilated to 60 Polish/20 mm with a TTS hydrostatic balloon. There was some resistance at the cricopharyngeus/cricopharyngeal spasm. The remainder of the esophageal mucosa was normal. Impression: 1. Cricopharyngeal spasm status post dilation to 20 mm 2. Nonerosive GERD with moderate esophageal dysmotility 3. Moderate linear erosive reactive gastropathy Plan: I will follow-up the biopsies and I will discuss the findings with the patient and family. The patient does have functional dyspepsia, functional GERD and some esophageal spasm/esophageal dyskinesia. We will discuss dietary measures and treatment options.
[2020-06-06 13:05] VITALS: BP 133/80; PULSE 78; RESP 16; TEMP 37.1; O2SAT 96
[2020-06-06 13:15] VITALS: BP 137/94; PULSE 59; RESP 16; O2SAT 97
[2020-06-06 13:25] VITALS: BP 139/88; PULSE 61; RESP 16; O2SAT 100
[2020-06-06 13:35] VITALS: BP 130/80; PULSE 69; RESP 16; TEMP 37.1; O2SAT 99
== END 2020-06-06 13:36 | disposition home or self-care (01) ==
LOC: OUTP 10:18
PROVIDERS: PCP Internal Medicine Adolescent Medicine; Visit Provider Internal Medicine Gastroenterology
PROC: 0DJ08ZZ Inspection of Upper Intestinal Tract, Via Natural or Artificial Opening Endoscopic (ICD-10-PCS; CPT 43235; principal; 2020-06-06 11:30)
DX: J39.2 Other diseases of pharynx (principal); K21.9 Gastro-esophageal reflux disease without esophagitis; K22.4 Dyskinesia of esophagus; K31.9 Disease of stomach and duodenum, unspecified; J44.9 Chronic obstructive pulmonary disease, unspecified; F32.9 Major depressive disorder, single episode, unspecified; G43.909 Migraine, unspecified, not intractable, without status migrainosus; Z90.89 Acquired absence of other organs; Z90.710 Acquired absence of both cervix and uterus; Z82.3 Family history of stroke; Z82.49 Family history of ischemic heart disease and other diseases of the circulatory system; Z83.438 Family history of other disorder of lipoprotein metabolism and other lipidemia
CPT/HCPCS: 43239; 43249; C1726

== ENCOUNTER → 2020-07-28 16:25 | Outpatient (CLI) | payer BC, SELFPAY ==
--- NOTE | 2020-07-28 16:42 | XR_ITS ---
PROCEDURE: XR SHOULDER LT MIN 2V CLINICAL INDICATION: SYNOVIAL HYPERTROPHY Left shoulder pain COMPARISON: CR [id number] [id number] from 08/22/2016 FINDINGS: No fracture or dislocation. No lytic or blastic change. There is normal mineralization. There is mild subacromial stenosis. Mild spurring is present at the acromion at the AC joint. Glenohumeral joint has an unremarkable appearance. Other findings:None. IMPRESSION: Mild degenerative changes of the AC joint with mild subacromial stenosis Dictated by: Lakhwinder Mesa MD 07/28/2020 17:00 Lakhwinder Mesa MD in [place] 07/28/2020 17:00
[2020-07-28 17:09] LABS: Basophils # 0.1 K/mm3 (0-0.2); Basophils % 0.9 % (0.1-2.0); Eosinophils # 0.3 K/mm3 (0.0-0.4); Eosinophils % 3.3 % (0.1-12.0); Hematocrit 42.9 % (37.0-47.0); Hemoglobin 13.8 g/dL (12.2-16.2); Lymphocytes # 3.7 K/mm3 (0.7-4.5); Lymphocytes % 36.3 % (10-50); Mean Corpuscular HGB Conc 32.1 g/dL (31.8-35.4); Mean Corpuscular Hemoglobin 28.8 pg (27.0-31.2); Mean Corpuscular Volume 89.7 fl (81-99); Mean Platelet Volume 6.8 fl (7.4-10.4); Monocytes # 0.4 K/mm3 (0.1-1.0); Monocytes % 3.9 % (1.7-9.3); Neutrophils # 5.7 K/mm3 (1.8-7.8); Neutrophils % 55.7 % (37.0-80.0); Platelet Count 365 K/mm3 (142-424); Red Blood Count 4.79 M/mm3 (4.20-5.40); Red Cell Distribution Width 14.6 % (11.5-17.5); White Blood Count 10.2 K/mm3 (4.8-10.8)
[2020-07-28 18:22] LABS: Alanine Aminotransferase 27 U/L (12-78); Albumin Level 4.3 g/dl (3.5-5.0); Albumin/Globulin Ratio 1.6 (1.1-1.8); Alkaline Phosphatase 159 U/L (38-126); Anion Gap 12.4 mEq/L (5-15); Aspartate Amino Transferase 27 U/L (14-36); Bilirubin,Total 0.2 mg/dl (0.2-1.3); Blood Urea Nitrogen 18 mg/dl (7-17); Calcium 9.8 mg/dl (8.4-10.2); Carbon Dioxide 26 mmol/L (22.0-30.0); Chloride 106 mmol/L (98-107); Chol/HDL Ratio 4.2 (1-3.5); Cholesterol 210 mg/dl (140-200); Estimated Glomerular Filt Rate 59 ml/min (>60); GFR (African American) 72 ML/MIN (>60); Globulin 2.7 g/dL (1.3-3.2); Glucose 107 mg/dl (74-100); HDL Cholesterol 50 mg/dl (40-60); Potassium 4.4 mmoL/L (3.5-5.1); Sodium 140 mmol/L (136-145); Triglycerides 103 mg/dl (30-150); VLDL Cholesterol 21 mg/dL (0-40)
[2020-07-28 18:33] LABS: Direct LDL Cholesterol 134.68 mg/dL (100-129)
[2020-07-28 18:53] LABS: Thyroid Stimulating Hormone 2.69 uIU/mL (0.465-4.68)
[2020-07-28 19:12] LABS: Vitamin B12 730 pg/mL (239-931)
== END ==
PROVIDERS: Visit Provider Internal Medicine Adolescent Medicine
DX: R35.8 Other polyuria (principal); E53.8 Deficiency of other specified B group vitamins; E78.5 Hyperlipidemia, unspecified; M67.212 Synovial hypertrophy, not elsewhere classified, left shoulder
CPT/HCPCS: 36415; 73030; 80053; 80061; 82607; 83036; 84443; 85025

== ENCOUNTER → 2020-09-06 09:26 | Outpatient (CLI) | payer BC, SELFPAY ==
--- NOTE | 2020-09-06 09:34 | XR_ITS ---
PROCEDURE: XR FOOT WT BEARING LT 3V CLINICAL INDICATION: Pain COMPARISON: CR XR FOOT WT BEARING LT 3V from 10/15/2019 FINDINGS: The threaded screw is again seen base of 5th metatarsal transfixing the fracture which is well healed. The tarsal bones and remaining metatarsals all of phalanges appear intact. The plantar arch is normal. There is a small spur of the calcaneus at the insertion of the plantar tendon. IMPRESSION: No acute findings. Dictated by: Dr. Apolinar Turner MD 09/06/2020 11:06 Dr. Apolinar Turner MD in [place] 09/06/2020 11:06
== END ==
PROVIDERS: PCP Internal Medicine Adolescent Medicine; Visit Provider Podiatrist
DX: M79.672 Pain in left foot (principal)
CPT/HCPCS: 73630

== ENCOUNTER → 2020-09-27 15:32 | Outpatient (CLI) | payer BC, SELFPAY ==
--- NOTE | 2020-09-27 15:32 | CT_ITS ---
PROCEDURE: CT FOOT LT WO CON CLINICAL HISTORY: evaluate for 5th met 5th metatarsal at location of fx repair from last year Stress fx no injury Pain/swelling at surgical site COMPARISON: CR XR FOOT LT MIN 3V from 08/11/2019 CR XR FOOT LT 2V from 09/15/2019 CR XR FOOT LT MIN 3V from 09/15/2019 CR XR FOOT WT BEARING LT 3V from 09/29/2019 CR XR FOOT WT BEARING RT 3V from 09/29/2019 CR XR FOOT WT BEARING LT 3V from 10/15/2019 CR XR ANKLE WT BEARING LT MIN 3V from 11/02/2019 CR XR FOOT WT BEARING LT 3V from 09/06/2020 TECHNIQUE: Axial images obtained with sagittal and coronal reformats. All CT scans at the facility use one or more dose reduction, viz: automated exposure control, ma/kV adjustment per patient size (including targeted exams where dose is matched to indication, i.e. head), or iterative reconstruction technique. FINDINGS: A threaded screws present at the proximal aspect of the 5th metatarsal. There is a faint transverse lucency involving the proximal shaft of the 5th metatarsal as noted on recent radiograph. This however was present as well on foot exam of 10/25/2019. There are no exams available between these 2 to confirm that this area did heal. This is only noted along the plantar aspect of the 5th metatarsal. There are mild osteoarthritic changes at the 1st MTP joint. IMPRESSION: Status post ORIF of the 5th metatarsal. A faint transverse lucency is noted along the plantar surface of the proximal shaft of the 5th metatarsal. This was present on an older study of 10/25/2019 and could be due to an area of incomplete bony union or a nondisplaced refracture. Please correlate with any images that may be available between 10/25/2019 and today's exam. Dictated by: Lakhwinder Mesa MD 09/28/2020 09:37 Lakhwinder Mesa MD in [place] 09/28/2020 09:37
== END ==
PROVIDERS: PCP Internal Medicine Adolescent Medicine; Visit Provider Podiatrist
DX: M84.375A Stress fracture, left foot, initial encounter for fracture (principal); S99.192A Other physeal fracture of left metatarsal, initial encounter for closed fracture
CPT/HCPCS: 73700

== ENCOUNTER → 2020-10-31 17:25 | Outpatient (CLI) | payer BC, SELFPAY ==
[2020-10-31 17:43] LABS: Basophils # 0.1 K/mm3 (0-0.2); Basophils % 0.6 % (0.1-2.0); Eosinophils # 0.2 K/mm3 (0.0-0.4); Eosinophils % 1.1 % (0.1-12.0); Hematocrit 43.8 % (37.0-47.0); Lymphocytes # 3.8 K/mm3 (0.7-4.5); Lymphocytes % 26.6 % (10-50); Mean Corpuscular HGB Conc 31.9 g/dL (31.8-35.4); Mean Corpuscular Hemoglobin 28.9 pg (27.0-31.2); Mean Corpuscular Volume 90.5 fl (81-99); Mean Platelet Volume 7.3 fl (7.4-10.4); Monocytes # 0.5 K/mm3 (0.1-1.0); Monocytes % 3.7 % (1.7-9.3); Neutrophils # 9.7 K/mm3 (1.8-7.8); Neutrophils % 67.9 % (37.0-80.0); Platelet Count 370 K/mm3 (142-424); Red Blood Count 4.84 M/mm3 (4.20-5.40); Red Cell Distribution Width 14.2 % (11.5-17.5); White Blood Count 14.3 K/mm3 (4.8-10.8)
[2020-10-31 18:40] LABS: Chloride 107 mmol/L (98-107); Potassium 4.1 mmoL/L (3.5-5.1); Sodium 141 mmol/L (136-145)
[2020-10-31 18:42] LABS: Alanine Aminotransferase 12 U/L (12-78); Anion Gap 11.1 mEq/L (5-15); Aspartate Amino Transferase 19 U/L (14-36); Blood Urea Nitrogen 19 mg/dl (7-17); Carbon Dioxide 27 mmol/L (22.0-30.0); Estimated Glomerular Filt Rate 89 ml/min (>60); GFR (African American) 108 ML/MIN (>60)
[2020-10-31 18:43] LABS: Albumin Level 4.7 g/dl (3.5-5.0); Albumin/Globulin Ratio 1.5 (1.1-1.8); Alkaline Phosphatase 120 U/L (38-126); Bilirubin,Total 0.4 mg/dl (0.2-1.3); Calcium 10.3 mg/dl (8.4-10.2); Chol/HDL Ratio 4.7 (1-3.5); Cholesterol 235 mg/dl (140-200); Globulin 3.1 g/dL (1.3-3.2); Glucose 98 mg/dl (74-100); HDL Cholesterol 50 mg/dl (40-60); Total Protein,Serum 7.8 g/dl (6.3-8.2); Triglycerides 100 mg/dl (30-150); VLDL Cholesterol 20 mg/dL (0-40)
[2020-10-31 18:56] LABS: Direct LDL Cholesterol 147.52 mg/dL (100-129)
[2020-10-31 19:01] LABS: 25-OH Vitamin D, Total 37.4 ng/mL (30-100)
[2020-10-31 19:16] LABS: Thyroid Stimulating Hormone 2.18 uIU/mL (0.465-4.68)
[2020-10-31 19:34] LABS: Vitamin B12 913 pg/mL (239-931)
== END ==
PROVIDERS: Visit Provider Internal Medicine Adolescent Medicine
DX: E78.5 Hyperlipidemia, unspecified (principal); E53.8 Deficiency of other specified B group vitamins; E55.9 Vitamin D deficiency, unspecified
CPT/HCPCS: 36415; 80053; 80061; 82306; 82607; 84443; 85025

== ENCOUNTER → 2020-11-08 08:45 | Outpatient (CLI) | payer BC, SELFPAY ==
--- NOTE | 2020-11-08 08:48 | XR_ITS ---
PROCEDURE: XR FOOT WT BEARING LT 3V CLINICAL INDICATION: fracture follow up Follow-up fracture COMPARISON: CR XR FOOT WT BEARING LT 3V from 09/29/2019 CR XR FOOT WT BEARING RT 3V from 09/29/2019 CR XR FOOT WT BEARING LT 3V from 10/15/2019 CR XR FOOT WT BEARING LT 3V from 09/06/2020 FINDINGS: There has been prior screw placement within the proximal aspect of the 5th metatarsal oriented longitudinally within the 5th metatarsal. The fracture line at the base of the 5th metatarsal is more prominent and there is increasing lucency around the distal aspect of the screw. Mild pes planus. Small calcaneal spur. IMPRESSION: Increasing lucency at the distal aspect of the screw within the 5th metatarsal with increasing prominence of the fracture line consistent with loosening of the hardware and non bony union at least laterally. Infection would be included in the differential diagnosis Dictated by: Lakhwinder Mesa MD 11/08/2020 17:24 Lakhwinder Mesa MD in [place] 11/08/2020 17:24
--- NOTE | 2020-11-08 08:49 | XR_ITS ---
PROCEDURE: XR DEXA AXIAL SKELETON CLINICAL HISTORY: STREES FRACTURE, LT FOOT, SEQUELA The patient is perimenopausal, currently taking vitamin-D with history of of a fracture as an adult COMPARISON: No exams were available for comparison FINDINGS: The right hip BMD is 0.907 g per sq cm with a T-score of -0.3. The left hip BMD is 0.874 g per sq cm with a T-score of -0.6. The lumbar spine BMD is 1.108 g per sq cm with a T-score of 0.6. IMPRESSION: Normal values for bilateral hips and lumbar spine Based on these results a follow-up exam is recommended in 2 year. Dictated by: Dr. Apolinar Turner MD 11/08/2020 13:48 Dr. Apolinar Turner MD in [place] 11/08/2020 13:48
[2020-11-08 09:40] LABS: Basophils # 0.1 K/mm3 (0-0.2); Basophils % 0.7 % (0.1-2.0); Eosinophils # 0.1 K/mm3 (0.0-0.4); Eosinophils % 1.4 % (0.1-12.0); Hematocrit 41.1 % (37.0-47.0); Hemoglobin 13.5 g/dL (12.2-16.2); Lymphocytes # 2.9 K/mm3 (0.7-4.5); Lymphocytes % 36.5 % (10-50); Mean Corpuscular HGB Conc 32.9 g/dL (31.8-35.4); Mean Corpuscular Hemoglobin 29.4 pg (27.0-31.2); Mean Corpuscular Volume 89.4 fl (81-99); Monocytes # 0.3 K/mm3 (0.1-1.0); Monocytes % 4.1 % (1.7-9.3); Neutrophils # 4.6 K/mm3 (1.8-7.8); Neutrophils % 57.4 % (37.0-80.0); Platelet Count 343 K/mm3 (142-424); Red Blood Count 4.59 M/mm3 (4.20-5.40); Red Cell Distribution Width 13.8 % (11.5-17.5)
[2020-11-08 11:17] LABS: Alanine Aminotransferase 12 U/L (12-78); Albumin Level 4.2 g/dl (3.5-5.0); Albumin/Globulin Ratio 1.6 (1.1-1.8); Alkaline Phosphatase 107 U/L (38-126); Anion Gap 8.3 mEq/L (5-15); Aspartate Amino Transferase 20 U/L (14-36); Bilirubin,Total 0.3 mg/dl (0.2-1.3); Blood Urea Nitrogen 17 mg/dl (7-17); Calcium 9.7 mg/dl (8.4-10.2); Carbon Dioxide 30 mmol/L (22.0-30.0); Chloride 107 mmol/L (98-107); Estimated Glomerular Filt Rate 89 ml/min (>60); GFR (African American) 108 ML/MIN (>60); Globulin 2.7 g/dL (1.3-3.2); Glucose 112 mg/dl (74-100); Potassium 4.3 mmoL/L (3.5-5.1); Sodium 141 mmol/L (136-145); Total Protein,Serum 6.9 g/dl (6.3-8.2)
== END ==
PROVIDERS: PCP Internal Medicine Adolescent Medicine; Visit Provider Internal Medicine Adolescent Medicine
DX: M84.375A Stress fracture, left foot, initial encounter for fracture (principal); T14.8XXA Other injury of unspecified body region, initial encounter
CPT/HCPCS: 36415; 73630; 77080; 80053; 85025

== ENCOUNTER → 2020-12-06 19:07 | Outpatient (CLI) | payer BC, SELFPAY | PROVIDERS: PCP Internal Medicine Adolescent Medicine; Visit Provider Internal Medicine Adolescent Medicine | DX: G47.33 Obstructive sleep apnea (adult) (pediatric) (principal); R06.83 Snoring | CPT/HCPCS: G0399 ==

== ENCOUNTER → 2020-12-12 08:19 | Outpatient (CLI) | payer BC, SELFPAY ==
--- NOTE | 2020-12-12 08:24 | XR_ITS ---
PROCEDURE: XR FOOT WT BEARING LT 3V CLINICAL INDICATION: fracture follow-up Pain COMPARISON: CR XR FOOT WT BEARING LT 3V from 09/29/2019 CR XR FOOT WT BEARING LT 3V from 10/15/2019 CR XR FOOT WT BEARING LT 3V from 09/06/2020 CR XR FOOT WT BEARING LT 3V from 11/08/2020 FINDINGS: Persistent transverse lucency is present involving the proximal shaft of the 5th metatarsal. This may be slightly more prominent. A lucent zone is present along the distal aspect of the screw within the mid shaft of the 2nd metatarsal. These findings would suggest nonunion with loosening of the prosthesis. This is not significantly changed. Mild osteoarthritis 1st MTP joint. Other findings:None. 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 Infection would be included in the differential diagnosis. Dictated by: Lakhwinder Mesa MD 12/12/2020 10:58 Lakhwinder Mesa MD in [place] 12/12/2020 10:58
== END ==
LOC: RAD 08:20
PROVIDERS: PCP Internal Medicine Adolescent Medicine; Visit Provider Podiatrist
DX: T14.8XXA Other injury of unspecified body region, initial encounter (principal)
CPT/HCPCS: 73630

== ENCOUNTER → 2020-12-26 10:19 | Outpatient (POV) | payer BC, SELFPAY ==
[2020-12-26 10:31] VITALS: BP 132/88; PULSE 74; RESP 18; O2SAT 98; BMI 23.3
--- NOTE | 2020-12-26 11:10 | HMH.PMCON ---
Assessment and Plan (1) Sacroiliitis Status: Chronic Category: Medical Code(s): M46.1 - Sacroiliitis, not elsewhere classified - Assessment and plan all Dx Assessment and Plan for all problems:: We will schedule the patient for right SI joint injection. I will follow-up with her afterwards reassess her symptoms at that time she has been instructed to call the office if she has any issues prior to her next appointment. Dr. Barragan has reviewed this note and agrees with this plan of care. This note was dictated using voice recognition software and may contain errors or omissions HPI - Data of Consult Consult date: 12/26/20 Requesting Physician: Laura Escobedo APRN Primary Care Provider: Giovanny Fernando MD - Consult Narrative Reason for consult: Sacroiliitis History of present illness: Ms. Matthews is a 50 year old female who presents today for consultation regards to her sacroiliitis. Patient has right SI joint pain radiating into her groin and down her leg it does not past her knee. She rates it a 6 out of 10. Any kind of increased activity makes the pain worse. Rest and elevation of the legs does benefit her at times. She has got a positive Giselle test SI joint compression test Ivory's test and distraction test on the right side. We discussed injective therapy she is agreeable. She has failed 6 weeks of medication and conservative treatment. CC: Laura Escobedo APRN [facility] History I have reviewed the patient's past medical history: Yes Medical History: Reports:: Chronic Obstructive Pulmonary Disease (COPD), Depression, Gastroesophageal Reflux Disease(GERD), Migraine Denies:: Cancer, Diabetes Mellitus Type 1, Diabetes Mellitus Type 2, Internal Pacemaker, MRSA, Seizures *Have you ever received a pneumonia vaccine?: Yes *Have you received a flu vaccine this season?: Yes Other Medical History: Reports: Arthritis, Sinus Problems. Denies: Blood Transfusion Reaction Laterality Cases: Left: Carotid Endarterectomy, Bilateral: Tonsillectomy, Other Other Surgeries: Yes: Colonoscopy, Hysterectomy-Total. No: Pacemaker Amputation: No Fractures: Yes - *Social History Smoking Status: Former smoker Tobacco Type: cigarettes Alcohol Intake: never Substance Use Type: denies use *Occupational Status:: other Housing: house Household Members: other *Travel in the last 8 weeks: None - Psychiatric History Pschychiatric History:: Reports:: Depression Family Hx:: Unable to obtain Review of Systems - Review of Systems ROS General: no recent weight change, no fever, no sleep disturbances Respiratory: no cough, no shortness of air, no recurring pulmonary infections Cardiovascular/Peripheral Vascular: No chest pain, No palpitations, no edema, no shortness of breath. Gastrointestinal: no new onset incontinence, normal bowel movements reported Genitourinary: no new onset incontinence Musculoskeletal: SI joint pain Psychiatric: normal mood/ affect Neurological: [denies new onset weakness in extremities], [denies new onset balance issues] Meds Home Medications Medication Instructions Recorded Confirmed Type cyanocobalamin (vitamin B-12) 10,000 mcg SUB-Q DAILY 28 Days #1 03/31/18 12/12/20 History 1,000 mcg/mL injection solution pantoprazole 40 mg tablet,delayed 40 mg PO DAILY 30 Days #60 03/31/18 12/12/20 History release Dextroamphetamine/Amphetamine 20 mg PO BID 10/22/18 12/12/20 History [Adderall 20 mg Tablet] celecoxib 200 mg capsule 200 mg PO DAILY 09/14/19 12/12/20 History venlafaxine 150 mg 150 mg PO DAILY cap 09/14/19 12/12/20 History capsule,extended release 24 hr dextroamphetamine-amphetamine 10 10 mg PO DAILY tab 09/21/19 12/12/20 History mg tablet diclofenac sodium 1 % topical gel 4 g TOPICAL QID PRN 30 Days #100 g 09/22/20 12/12/20 Rx melatonin 3 mg tablet 3 mg PO tab 09/29/20 12/12/20 History topiramate 100 mg capsule,extended 100 mg PO cap 09/29/20 12/12/20 History rele
== END ==
PROVIDERS: PCP Internal Medicine Adolescent Medicine; Visit Provider Clinical Nurse Specialist Family Health
DX: M46.1 Sacroiliitis, not elsewhere classified (principal)
CPT/HCPCS: 99202; G0463

== ENCOUNTER 2021-01-06 10:07 | Day surgery (SDC) | payer BC, SELFPAY ==
[2021-01-06 10:24] VITALS: BP 149/90; PULSE 69; RESP 18; TEMP 36.6; O2SAT 98; BMI 32.3
[2021-01-06 10:36] VITALS: BP 125/85; PULSE 85; RESP 18; O2SAT 98
[2021-01-06 10:37] VITALS: BP 128/89; PULSE 85; RESP 18; O2SAT 98
--- NOTE | 2021-01-06 10:43 | P.PCN_ITS ---
- Procedure Date: 01/06/21 Time: 10:43 Anesthesiologist:: Piter Barragan MD Complications:: None Pre-procedure Diagnosis:: Sacroiliitis Post-procedure Diagnosis:: Same Indications for Procedure:: This patient is a pleasant 50-year-old white female who we are treating for right-sided hip pain. She is tender over the right SI joint. She does have a positive Giselle test on the right side. She is positive Ivory's test on the right side. She has positive SI joint compression test on the right side. We will do a right SI joint injection under fluoroscopy today to help with her pain symptoms. Procedure Details:: Right SI joint injection under fluoroscopy Informed consent was obtained and the risks and benefits of the procedure was going to the patient. Patient was taken to the procedure room. Patient was placed prone on the procedure table. The right hip was prepped using ChloraPrep. The skin and subcutaneous tissues were anesthetized using lidoc becca. I placed a 22-gauge spinal needle into the inferior aspect of the right SI joint. Needle placement was confirmed with dye. After this we injected 5 mL bupivacaine 0.25% and Depo-Medrol 40 mg into the right SI joint. The patient tolerated the procedure well with no complication. Plan and Disposition:: Follow-up with her in 2 weeks. Will reevaluate symptoms at that time.
[2021-01-06 10:45] VITALS: BP 128/76; PULSE 60; RESP 18; O2SAT 98
== END 2021-01-06 10:45 | disposition home or self-care (01) ==
LOC: SC.PAINP 10:07
PROVIDERS: PCP Internal Medicine Adolescent Medicine; Visit Provider Anesthesiology
DX: M46.1 Sacroiliitis, not elsewhere classified (principal); K21.9 Gastro-esophageal reflux disease without esophagitis; J44.9 Chronic obstructive pulmonary disease, unspecified; G43.909 Migraine, unspecified, not intractable, without status migrainosus; F32.9 Major depressive disorder, single episode, unspecified
CPT/HCPCS: 27096; G0260; J1030; Q9966

== ENCOUNTER → 2021-02-27 10:33 | Outpatient (POV) | payer BC, SELFPAY ==
[2021-02-27 10:52] VITALS: BP 123/82; PULSE 72; RESP 18; O2SAT 98; BMI 27.2
--- NOTE | 2021-02-27 12:10 | HMH.PAINSOAP ---
[facility] Pain Management SOAP Note Subjective:: Patient is a 50-year-old white female who presents today for follow-up after right SI joint injection. Patient is having right low back pain with radiation into her right hip and to her right knee. Patient says that she got approximately 50% relief after the injection for up to 2 weeks. Unfortunately her pain has returned. Patient says prior to the SI injection, she did have a lumbar epidural steroid injection which gave her approximately 6 months of relief. She feels that she did better with the epidural steroid injections than her SI injections. She rates her pain a 5 out of 10 today. And would like to repeat repeat the lumbar epidural steroid injection. She says that she is having some occasional paresthesia into her right lower extremity stopping at the knee. She is not having any saddle anesthesia or any changes in bowel or bladder habits. She has tried and failed conservative therapies of physical therapy for greater than 6 weeks and continues with home stretching. She is also tried ice and heat therapies and anti-inflammatories. Review of Systems General: No recent weight changes, no fever, no sleep disturbances Respiratory: No cough, no shortness of air, no recurring pulmonary infections Cardiovascular/peripheral vascular: No chest pain, no palpitations, no edema, no shortness of breath Gastrointestinal: No new onset incontinence, normal bowel movements reported Genitourinary: No new onset incontinence Musculoskeletal: Right low back pain with radiation into right hip and right knee with occasional numbness and tingling Psychiatric: Normal mood/affect Neurological: [Denies weakness in extremities], [denies balance issues] Objective:: Physical exam General: Alert and oriented x3, no acute distress, pleasant and cooperative, [on room air] Lungs: Respirations even and unlabored, symmetrical chest expansion Eyes: PERRL Musculoskeletal: Flexion and extension of [] lumbar spine somewhat guarded secondary to pain, deep tendon reflexes normal, strength in upper and lower extremities [4/5], [abnormal gait noted] Neurological: Speech clear, radio division lieutenant equal, no gross sensory deficit Assessment:: Degenerative disc disease lumbar spine with lumbar radiculopathy symptoms Plan:: Patient got about 50% relief for 2 weeks with her SI injection. She says that the lumbar epidural steroid injection has given her better relief than the SI injections. She says her last lumbar epidural steroid injection gave her about 6 months of relief. Her pain is in the right low back radiating into the right hip and right knee. We will schedule her for a right transforaminal epidural steroid injection at L4-L5. We will see her back in the clinic afterwards for reevaluation of her symptoms. She is not on any anticoagulation therapy. Risks and benefits of the procedure have been explained to the patient. Patient would like to proceed with the procedure. Possible side effects of corticosteroids have been discussed with the patient. Patient has been instructed to contact the clinic with any concerns before the next appointment. Dr. Barragan has reviewed this note and agrees with this plan of care. This note was dictated using voice recognition software and make contain errors or omissions. [facility] History I have reviewed the patient's past medical history: Yes Medical History: Reports:: Chronic Obstructive Pulmonary Disease (COPD), Depression, Gastroesophageal Reflux Disease(GERD), Migraine Denies:: Cancer, Diabetes Mellitus Type 1, Diabetes Mellitus Type 2, Internal Pacemaker, MRSA, Seizures *Have you ever received a pneumonia vaccine?: No *Have you received a flu vaccine this season?: Yes Other Medical History: Reports: Arthritis, Sinus Problems. Denies: Blood Transfusion Reaction Laterality Cases: Left: Carotid Endarterectomy, Bilateral: Tonsillectomy, Other Other Surgeries: Yes: Colonoscopy, Hysterectomy-Tot
== END ==
PROVIDERS: PCP Internal Medicine Adolescent Medicine; Visit Provider Clinical Nurse Specialist Family Health
DX: M51.16 Intervertebral disc disorders with radiculopathy, lumbar region (principal)
CPT/HCPCS: 99212; G0463

== ENCOUNTER 2021-03-10 10:32 | Day surgery (SDC) | payer BC, SELFPAY ==
[2021-03-10 11:05] VITALS: BP 147/90; PULSE 77; RESP 18; TEMP 36.7; O2SAT 97; BMI 31.9
[2021-03-10 11:22] VITALS: BP 157/88; PULSE 68; RESP 18; O2SAT 96
[2021-03-10 11:23] VITALS: BP 150/82; PULSE 67; RESP 18; O2SAT 96
--- NOTE | 2021-03-10 11:36 | HMH.PMPROC ---
- Procedure Date: 03/10/21 Time: 11:37 Anesthesiologist:: Verna Kaba MD Complications:: None Pre-procedure Diagnosis:: Degenerative disc disease of the lumbar spine, lumbar radiculopathy Post-procedure Diagnosis:: Same Indications for Procedure:: Patient is a very pleasant 50-year-old white female who presents today with chronic low back pain radiating into her legs related to the above diagnosis. She is trialed and failed conservative treatment including oral pain medication and home stretching program. She has previously undergone a lumbar epidural steroid injection with significant pain relief in her pain symptoms. She has previously also undergone a right-sided SI joint injection and noted about 50% pain relief for about 2 weeks. The plan for today is for the patient to undergo repeat lumbar epidural steroid injection at L5-S1 today. Procedure Details:: Informed consent was obtained and the risk and benefits of the procedure was explained to the patient. The patient was taken to the procedure room. The patient was placed prone on the procedure table. The patient was prepped and draped in sterile fashion. C-arm fluoroscopy was used to view the lumbar spine. Skin and subcutaneous tissues were anesthetized using lidocaine. I placed an 18-gauge epidural needle and advanced into the L5-S1 interspace using fluoroscopic guidance and [id number] to air and saline. After confirmation of needle placement in the epidural space with dye I injected 2 mL of lidocaine 1.0% with Depo-Medrol 80 mg. Patient tolerated the procedure well with no complications. Plan and Disposition:: We will follow-up with this patient in 2 weeks. Will reevaluate pain symptoms at that time.
[2021-03-10 11:42] VITALS: BP 122/78; PULSE 66; RESP 20; O2SAT 97
== END 2021-03-10 11:44 | disposition home or self-care (01) ==
LOC: SC.PAINP 10:32
PROVIDERS: PCP Internal Medicine Adolescent Medicine; Visit Provider Anesthesiology Pain Medicine
DX: M51.16 Intervertebral disc disorders with radiculopathy, lumbar region (principal); G43.909 Migraine, unspecified, not intractable, without status migrainosus; J44.9 Chronic obstructive pulmonary disease, unspecified; K21.9 Gastro-esophageal reflux disease without esophagitis; M19.90 Unspecified osteoarthritis, unspecified site; F32.9 Major depressive disorder, single episode, unspecified
CPT/HCPCS: 62323; J1040; Q9966

== ENCOUNTER → 2021-04-03 08:51 | Outpatient (POV) | payer BC, SELFPAY ==
[2021-04-03 08:58] VITALS: BP 123/78; PULSE 69; RESP 18; O2SAT 96
--- NOTE | 2021-04-03 09:22 | HMH.PAINSOAP ---
[facility] Pain Management SOAP Note Subjective:: Patient is a 50-year-old white female who presents today for follow-up after lumbar epidural steroid injection #2. The patient is being treated for degenerative disc disease lumbar spine with lumbar radiculopathy symptoms and chronic low back pain. Patient reports she did not get any significant relief with the injection. She says she got approximately 40% relief for only 3 to 4 days. She says her pain has returned. Her pain is in her right low back area with radiation into her right hip and right knee. The pain is worse with standing or walking. Bending forward does not change her pain. She is also complaining of right upper trapezius area pain. She says that she is having pain into her right arm as well. She reports to be having new onset tremors to her right arm. She is having difficulty grasping objects. She rates her pain a 2 out of 10 with sitting in a 6 or 7 out of 10 with standing or walking. Patient has tried and failed conservative therapies of physical therapy for more than 6 weeks along with continued home stretching. She has tried anti-inflammatories with no relief. She is also tried ice and heat therapies and has not gotten any relief. Patient has not had recent imaging of her lumbar spine. Review of Systems General: No recent weight changes, no fever, no sleep disturbances Respiratory: No cough, [no shortness of air], no recurring pulmonary infections Cardiovascular/peripheral vascular: No chest pain, no palpitations, [no edema], no shortness of breath Gastrointestinal: No new onset incontinence, normal bowel movements reported Genitourinary: No new onset incontinence Musculoskeletal: Right low back pain with radiation into right hip and right knee, right upper shoulder pain with radiation into right arm Psychiatric: [Normal mood/affect] Neurological: [Denies weakness in extremities], [denies balance issues] Objective:: Physical exam General: Alert and oriented x3, no acute distress, pleasant and cooperative, [on room air] Lungs: Respirations even and unlabored, symmetrical chest expansion Eyes: PERRL Musculoskeletal: Flexion and extension of [] cervical and lumbar [spine] somewhat guarded secondary to pain, strength in upper and lower extremities [5/5], [antalgic gait noted] Neurological: Speech clear, manufacturing associate equal, no gross sensory deficit Assessment:: Degenerative disc disease lumbar spine with lumbar radiculopathy symptoms, myofascial pain cervical paraspinous and upper trapezius right side Plan:: We will schedule patient for an MRI lumbar spine. She has not had any recent imaging. She has tried #2 epidural steroid injections. She got significant relief with her initial injection, however, did not get much relief with the second injection. She is having tremors new onset to her right arm. We will schedule her for a neurology consult for this new finding. She does have tenderness noted to her upper trapezius and cervical paraspinous muscles. She does have tenderness with trigger points to this area as well. We will schedule her for trigger point injections to her right upper trapezius and cervical paraspinous muscles. Patient is interested in possible spinal cord stimulation for long-term relief of her lumbar spine. We will schedule her for psychological evaluation. She has not gotten significant relief with the injections at this point. She has had epidural steroid injections in the past which did give her relief for months at a time. We will plan to see the patient back for trigger point and after her psychological evaluation to determine if she is an appropriate candidate for possible spinal cord stimulation. Patient has not had an MRI recently. She may need a neurosurgical referral before proceeding with psychological evaluation if abnormal findings on the MRI. Risks and benefits of the procedure have been explained to the patient. Patient would
== END ==
PROVIDERS: PCP Internal Medicine Adolescent Medicine; Visit Provider Clinical Nurse Specialist Family Health
DX: M51.16 Intervertebral disc disorders with radiculopathy, lumbar region (principal); M79.18 Myalgia, other site
CPT/HCPCS: 99212; G0463

== ENCOUNTER → 2021-04-10 13:09 | Outpatient (CLI) | payer BC, SELFPAY ==
--- NOTE | 2021-04-10 13:15 | MR_ITS ---
PROCEDURE: MR LUMBAR SPINE WO CON CLINICAL INDICATION: BACK PAIN LBP worse on rt side. Rt leg pain. Symptoms [id number]. No injury or trauma. Prior x-ray 09/08/15. COMPARISON: No exams were available for comparison TECHNIQUE: Standard multiplanar multiecho sequences are performed without contrast. 3-D MIP and myelographic images are also rendered and reviewed FINDINGS: There is normal alignment. The spinal cord ends at T12 level. T11-T12: Mild degenerative disc disease. T12-L1: Unremarkable. L1-L2: Mild facet and ligamentum hypertrophy. L2-L3: Facet and ligamentum hypertrophic change with mild bilateral lateral recess narrowing slightly greater on the left and with mild right and moderate left foraminal narrowing. L3-L4: Degenerative disc disease with bulging disc. There is a broad based left paracentral foraminal and lateral disc protrusion. This is causing left-sided lateral recess and foraminal narrowing impinging upon the left L4 nerve root and also the L3 nerve root. There is moderate to severe facet and ligamentum hypertrophy at this level with canal stenosis min also with moderate right-sided lateral recess and foraminal narrowing. There is also impingement upon the exiting left L3 nerve root. L4-5: Mild degenerative disc disease. 4 mm anterolisthesis of L4 with bulging disc along with severe facet and ligamentum hypertrophic change with severe canal stenosis and severe bilateral lateral recess and foraminal narrowing right greater than left with impingement upon the exiting L4 nerve root on the right. L5-S1: Mild degenerative disc disease with bulging disc with moderate to severe facet and ligamentum hypertrophy with mild bilateral foraminal narrowing. The bulging disc is slightly eccentric toward the right. No extruded herniated disc are evident. IMPRESSION: 1. L2-L3: Facet and ligamentum hypertrophic change with mild bilateral lateral recess narrowing slightly greater on the left and with mild right and moderate left foraminal narrowing. 2. L3-L4: Degenerative disc disease with bulging disc. There is a broad based left paracentral foraminal and lateral disc protrusion. This is causing left-sided lateral recess and foraminal narrowing impinging upon the left L4 nerve root and also the L3 nerve root. There is moderate to severe facet and ligamentum hypertrophy at this level with canal stenosis also with moderate right-sided lateral recess and foraminal narrowing. There is also impingement upon the exiting left L3 nerve root. 3. L4-5: Mild degenerative disc disease. 4 mm anterolisthesis of L4 with bulging disc along with severe facet and ligamentum hypertrophic change with severe canal stenosis and severe bilateral lateral recess and foraminal narrowing right greater than left with impingement upon the exiting L4 nerve root on the right. 4. L5-S1: Mild degenerative disc disease with bulging disc with moderate to severe facet and ligamentum hypertrophy with mild bilateral foraminal narrowing. The bulging disc is slightly eccentric toward the right. 5. No extruded herniated disc are evident. Dictated by: Lakhwinder Mesa MD 04/11/2021 09:23 Lakhwinder Mesa MD in [place] 04/11/2021 09:23
== END ==
PROVIDERS: PCP Internal Medicine Adolescent Medicine; Visit Provider Clinical Nurse Specialist Family Health
DX: M54.5 Low back pain (principal)
CPT/HCPCS: 72148; 76376

== ENCOUNTER → 2021-04-18 09:25 | Outpatient (CLI) | payer BC, SELFPAY ==
--- NOTE | 2021-04-18 09:29 | XR_ITS ---
PROCEDURE: XR FOOT WT BEARING RT 3V CLINICAL INDICATION: pain COMPARISON: CR XR FOOT WT BEARING RT 3V from 09/29/2019 CR XR FOOT WT BEARING LT 3V from 10/15/2019 CR XR FOOT WT BEARING LT 3V from 09/06/2020 CR XR FOOT WT BEARING LT 3V from 11/08/2020 CR XR FOOT WT BEARING LT 3V from 12/12/2020 FINDINGS: No fracture or dislocation. No lytic or blastic change. There is normal mineralization. The joint spaces are well-preserved. No significant degenerative/arthritic changes. No erosive changes evident. Other findings:None. IMPRESSION: Negative right foot Dictated by: Lakhwinder Mesa MD 04/18/2021 11:23 Lakhwinder Mesa MD in [place] 04/18/2021 11:23
--- NOTE | 2021-04-18 09:30 | XR_ITS ---
PROCEDURE: XR FOOT WT BEARING LT 3V CLINICAL INDICATION: Post-op Follow-up surgery COMPARISON: CR XR FOOT WT BEARING LT 3V from 09/29/2019 CR XR ANKLE WT BEARING LT MIN 3V from 09/29/2019 CR XR FOOT WT BEARING RT 3V from 09/29/2019 CR XR FOOT WT BEARING LT 3V from 10/15/2019 CR XR FOOT WT BEARING LT 3V from 09/06/2020 CR XR FOOT WT BEARING LT 3V from 11/08/2020 CR XR FOOT WT BEARING LT 3V from 12/12/2020 FINDINGS: Longitudinal screw remains within the proximal aspect of the 5th metatarsal with healing proximal 5th metatarsal fracture. The fracture line is less obvious. There is a prominent zone of lucency around the distal aspect of the screw which could indicate loosening or infection. This is not significantly changed. The screw itself appears intact. IMPRESSION: Healing 5th metatarsal fracture status post ORIF with longitudinal screw in place. No change mildly prominent zone of lucency at the tip of the screw. Dictated by: Lakhwinder Mesa MD 04/18/2021 11:22 Lakhwinder Mesa MD in [place] 04/18/2021 11:22
== END ==
PROVIDERS: PCP Internal Medicine Adolescent Medicine; Visit Provider Podiatrist
DX: M79.672 Pain in left foot (principal); M79.671 Pain in right foot; Z98.890 Other specified postprocedural states
CPT/HCPCS: 73630

== ENCOUNTER 2021-04-21 12:45 | Day surgery (SDC) | payer BC, SELFPAY ==
[2021-04-21 12:48] VITALS: BP 152/93; PULSE 72; RESP 18; TEMP 36.6; O2SAT 98
[2021-04-21 14:01] VITALS: BP 125/94; PULSE 60; RESP 18; O2SAT 96
[2021-04-21 14:02] VITALS: BP 125/94; PULSE 63; RESP 18; O2SAT 97
--- NOTE | 2021-04-21 14:11 | P.PCN_ITS ---
- Procedure Date: 04/21/21 Time: 14:12 Anesthesiologist:: Piter Barragan MD Complications:: None Pre-procedure Diagnosis:: Neck pain myofascial in origin upper trapezius muscles Post-procedure Diagnosis:: Same Indications for Procedure:: This patient is a pleasant 50-year-old white female who we are treating for neck pain myofascial in origin over the upper trapezius muscles. We are also treating her for low back pain with epidural steroid injections. Most of her pain today is on the right side. We will do trigger point injections to the right upper trapezius muscles today. Procedure Details:: Trigger point injections x8 to right upper trapezius muscle. Informed consent was obtained the risk and benefits of the procedure were explained to the patient. Patient was taken the procedure room. The right upper trapezius muscle was prepped using ChloraPrep. Trigger points were palpated and marked. Each of these trigger points were injected with bupi vacaine 0.25% 3 mL and Depo-Medrol 10 mg. A total of 8 trigger points were injected using 80 mg Depo-Medrol. Patient tolerated the procedure well with no complications. Plan and Disposition:: We will follow-up with this patient 2 weeks. Will reevaluate symptoms at that time. We will plan on repeat lumbar epidural steroid injection at that time.
[2021-04-21 14:15] VITALS: BP 135/75; PULSE 65; RESP 18; O2SAT 98
== END 2021-04-21 14:15 | disposition home or self-care (01) ==
LOC: SC.PAINP 12:46
PROVIDERS: PCP Internal Medicine Adolescent Medicine; Visit Provider Anesthesiology
DX: M79.18 Myalgia, other site (principal); G43.909 Migraine, unspecified, not intractable, without status migrainosus; J44.9 Chronic obstructive pulmonary disease, unspecified; K21.9 Gastro-esophageal reflux disease without esophagitis; M19.90 Unspecified osteoarthritis, unspecified site; F32.9 Major depressive disorder, single episode, unspecified
CPT/HCPCS: 20552; J1030

== ENCOUNTER → 2021-05-05 12:39 | Day surgery (SDC) | payer BC, SELFPAY ==
[2021-05-05 12:55] VITALS: BP 136/80; PULSE 59; RESP 18; TEMP 36.7; O2SAT 97; BMI 29.6
[2021-05-05 13:56] VITALS: BP 131/79; PULSE 51; RESP 18; O2SAT 96
[2021-05-05 13:57] VITALS: BP 123/74; PULSE 55; RESP 18; O2SAT 96
--- NOTE | 2021-05-05 14:16 | P.PCN_ITS ---
- Procedure Date: 05/05/21 Time: 14:16 Anesthesiologist:: Verna Kaba MD Complications:: None Pre-procedure Diagnosis:: Degenerative disc disease of the lumbar spine, lumbar radiculopathy Post-procedure Diagnosis:: Same Indications for Procedure:: This patient is a very pleasant 50-year-old white female who presents today with chronic low back pain radiating into her legs related to the above diagnosis. She has trialed and failed surgical treatment including oral pain medication and home stretching program for greater than 6 weeks. We have previously performed trigger point injections to the upper trapezius muscles on the right and she notes approximately 80% pain relief that is ongoing. She continues to have low back pain rating to her legs and the plan for today is for the patient to undergo a lumbar epidural steroid injection under fluoroscopy at L5-S1. Procedure Details:: Informed consent was obtained and the risk and benefits of the procedure was explained to the patient. The patient was taken to the procedure room. The patient was placed prone on the procedure table. The patient was prepped and draped in sterile fashion. C-arm fluoroscopy was used to view the lumbar spine. Skin and subcutaneous tissues were anesthetized using lidocaine. I placed an 18-gauge epidural needle and advanced into the L5-S1 interspace using fluoros copic guidance and [id number] to air and saline. After confirmation of needle placement in the epidural space with dye I injected 1 mL of lidocaine 1.0% with Depo-Medrol 80 mg. Patient tolerated the procedure well with no complications. Plan and Disposition:: Follow-up with this patient in 2 weeks. Will reevaluate pain symptoms at that time.
== END ==
PROVIDERS: PCP Internal Medicine Adolescent Medicine; Visit Provider Anesthesiology Pain Medicine
DX: M51.16 Intervertebral disc disorders with radiculopathy, lumbar region (principal); K21.9 Gastro-esophageal reflux disease without esophagitis; G43.909 Migraine, unspecified, not intractable, without status migrainosus; F32.9 Major depressive disorder, single episode, unspecified; F41.9 Anxiety disorder, unspecified; G47.419 Narcolepsy without cataplexy
CPT/HCPCS: 62323; J1040; Q9966

== ENCOUNTER → 2021-05-11 08:04 | Outpatient (CLI) | payer BC, SELFPAY ==
--- NOTE | 2021-05-11 08:05 | MM_ITS ---
PROCEDURE: MM DIG SCREENING MAMM BI W/CAD Digital Breast Tomosynthesis Included CLINICAL INDICATION: SCREENING There is no personal or family history of breast cancer. COMPARISON: MG DMSB DIG MAMM-SCREEN ANGIE from 02/08/2016 MG MM DIG SCREENING MAMM BI W/CAD from 05/10/2020 TECHNIQUE: Standard CC and MLO images and 3D Tomosynthesis was obtained. R2 CAD reviewed. FINDINGS: Mild diffuse scattered fibroglandular densities are seen throughout breasts the findings are bilateral and symmetrical. There are no CAD markings. There is a small round nodular density near the axillary tail right breast stable from previous studies and likely a low-lying node. There is no suspicious lesion in either breast no suspicious microcalcifications. IMPRESSION: Fibrofatty parenchyma with no suspicious lesions seen BI-RAD Category: 1 Negative FOLLOW-UP: 1YR 1 Year Follow-up (A letter has been sent to the patient regarding results of the study.) Dictated by: Dr. Apolinar Turner MD 05/12/2021 13:52 Dr. Apolinar Turner MD in [place] 05/12/2021 13:52
== END ==
PROVIDERS: PCP Internal Medicine Adolescent Medicine; Visit Provider Internal Medicine Adolescent Medicine
DX: Z12.31 Encounter for screening mammogram for malignant neoplasm of breast (principal)
CPT/HCPCS: 77063; 77067

== ENCOUNTER → 2021-05-31 10:02 | Outpatient (CLI) | payer BC, SELFPAY ==
[2021-05-31 10:44] LABS: Basophils # 0.1 K/mm3 (0-0.2); Basophils % 1.5 % (0.1-2.0); Eosinophils # 0.2 K/mm3 (0.0-0.4); Hematocrit 40.6 % (37.0-47.0); Hemoglobin 13.1 g/dL (12.2-16.2); Lymphocytes # 2.8 K/mm3 (0.7-4.5); Lymphocytes % 28.3 % (10-50); Mean Corpuscular HGB Conc 32.2 g/dL (31.8-35.4); Mean Corpuscular Hemoglobin 30.4 pg (27.0-31.2); Mean Corpuscular Volume 94.4 fl (81-99); Mean Platelet Volume 7.9 fl (7.4-10.4); Monocytes # 0.5 K/mm3 (0.1-1.0); Monocytes % 5.1 % (1.7-9.3); Neutrophils # 6.2 K/mm3 (1.8-7.8); Neutrophils % 63.1 % (37.0-80.0); Platelet Count 389 K/mm3 (142-424); White Blood Count 9.8 K/mm3 (4.8-10.8)
[2021-05-31 11:12] LABS: Alanine Aminotransferase 15 U/L (12-78); Albumin Level 3.7 g/dl (3.5-5.0); Albumin/Globulin Ratio 1.4 (1.1-1.8); Alkaline Phosphatase 115 U/L (38-126); Anion Gap 11.4 mEq/L (5-15); Aspartate Amino Transferase 20 U/L (14-36); Bilirubin,Total 0.2 mg/dl (0.2-1.3); Blood Urea Nitrogen 18 mg/dl (7-17); Calcium 9.1 mg/dl (8.4-10.2); Carbon Dioxide 30 mmol/L (22.0-30.0); Chloride 104 mmol/L (98-107); Chol/HDL Ratio 2.8 (1-3.5); Cholesterol 182 mg/dl (140-200); Estimated Glomerular Filt Rate 76 ml/min (>60); GFR (African American) 92 ML/MIN (>60); Globulin 2.7 g/dL (1.3-3.2); Glucose 81 mg/dl (74-100); HDL Cholesterol 65 mg/dl (40-60); Potassium 4.4 mmoL/L (3.5-5.1); Sodium 141 mmol/L (136-145); Total Protein,Serum 6.4 g/dl (6.3-8.2); Triglycerides 103 mg/dl (30-150); VLDL Cholesterol 21 mg/dL (0-40)
[2021-05-31 11:23] LABS: Direct LDL Cholesterol 91.71 mg/dL (100-129)
[2021-05-31 11:29] LABS: 25-OH Vitamin D, Total 35.6 ng/mL (30-100)
[2021-05-31 11:43] LABS: Thyroid Stimulating Hormone 1.65 uIU/mL (0.465-4.68)
[2021-05-31 11:51] LABS: Hemoglobin A1C 6.1 % (4.0-6.0)
[2021-05-31 12:02] LABS: Vitamin B12 626 pg/mL (239-931)
== END ==
PROVIDERS: Internal Medicine Adolescent Medicine; Visit Provider Surgery
DX: Z01.812 Encounter for preprocedural laboratory examination (principal); Z11.52 Encounter for screening for COVID-19; K64.9 Unspecified hemorrhoids
CPT/HCPCS: 36415; 80053; 80061; 82306; 82607; 83036; 84443; 85025; C9803; U0003; U0005

== ENCOUNTER 2021-06-02 09:25 | Day surgery (SDC) | payer BC, SELFPAY ==
[2021-05-31 13:12] VITALS: BMI 32.3
[2021-06-02] VITALS (11 sets, daily range): BP systolic 139–173; BP diastolic 77–92; PULSE 66–90; RESP 16–18; TEMP 36.5–36.7; O2SAT 91–97
--- NOTE | 2021-06-02 13:45 | HMH.OPNOTE ---
Date of procedure: 06/02/21 Pre-op Diagnosis:: Prolapsing internal hemorrhoids Post-op Diagnosis:: Prolapsing internal hemorrhoids Rectal mucosal prolapse Procedure performed:: Hemorrhoidectomy Surgeon:: Pedro Elena MD Anesthesia: LMA Estimated blood loss (mL): 15 Operative findings:: Internal hemorrhoidal cushions along lateral margins with some prolapse Moderate generalized rectal mucosal prolapse Operative note:: After informed consent was obtained the patient was taken to the operating room and placed in the supine position. General anesthesia with laryngeal mask airway was induced. She was then transferred to a modified lithotomy position. Her perianal region was prepped and draped in a sterile fashion. Digital rectal exam and inspection revealed bilateral hemorrhoidal cushions with prolapse. In addition she had moderate generalized prolapse of rectal mucosa. The decision to proceed with bilateral hemorrhoidal cushion excision was made. Discussion with regard to possible treatment for generalized mucosal prolapse will be ongoing. The left lateral cushion was carefully elevated. Electrocautery was utilized to resect the hemorrhoid. Hemostasis was also achieved with electrocautery. The mucosa was then reapproximated with running 2-0 Vicryl. The right lateral hemorrhoidal cushion was treated in a similar manner. The anal canal was packed with Proctosol coated Gelfoam. Dressings were applied and the patient was transferred to recovery in stable condition after removal of her laryngeal mask airway. Condition: stable Disposition: PACU Specimens:: Left lateral hemorrhoidal cushion Right lateral hemorrhoidal cushion Complications:: No immediate
--- NOTE | 2021-06-02 13:51 | P.PN_ITS ---
[facility] Anesthesia Checklist - Patient Identification Patient Identification: Arm Band, Verbal (Name & ) - Structural Data Admitted From: Home Planned Operative Procedure/s: hemorroidectomy Consent for Planned Operative Procedure(s) Verified: Yes Verified Documents: History and Physical - Additional verifications Patient : No Anesthesia Reactions: No Hx Blood Transfusions: No Blood Transfusion Reaction: No Cephalosporin Allergy: No Previous Colonoscopy: No - Cardiovascular Assessment Heart Sounds: S1 & S2 Pulse Strength: Baseline Pulse Rhythm: Regular Peripheral Edema: No - Airway Assessment C-Spine Mobility Assessed: Yes TMJ Mobility Assessed: Yes Dentition: Good Dentition - Neurological Assessment Level of Consciousness: Awake, Alert, Appropriate Hx Seizures: No Numbness or tingling in extremities: No - Anesthesia Plan Anesthesia Risk discussed: Yes Anesthesia Plan: Verified ASA Class: II Anesthesia Type: General [facility] History I have reviewed the patient's past medical history: Yes Medical History: Reports:: Chronic Obstructive Pulmonary Disease (COPD), Depression, Gastroesophageal Reflux Disease(GERD), Migraine Denies:: Cancer, Diabetes Mellitus Type 1, Diabetes Mellitus Type 2, Internal Pacemaker, MRSA, Seizures *Have you ever received a pneumonia vaccine?: No *Have you received a flu vaccine this season?: Yes Other Medical History: Reports: Arthritis, Sinus Problems. Denies: Blood Transfusion Reaction Anesthesia experience/problems:: none Laterality Cases: Left: Carotid Endarterectomy, Bilateral: Tonsillectomy, Other Other Surgeries: Yes: Colonoscopy, Hysterectomy-Total, Hysterectomy-Partial, Other. No: Pacemaker Amputation: No Fractures: Yes - *Social History Last grade of school completed: High school graduate Smoking Status: Never smoker Tobacco Type: cigarettes Alcohol Intake: never Substance Use Type: denies use *Occupational Status:: employed Housing: house Household Members: significant other *Travel in the last 8 weeks: None - Psychiatric History Pschychiatric History:: Reports:: Depression Family Hx:: Unable to obtain
--- NOTE | 2021-06-02 13:52 | HMH.ANESI ---
[facility] Anesthesia Record Part I Intake, IV Amount: 600 Estimated blood loss (mL): 10 Urine output (mL): 0 Blood Products used (#): none Blood Pressure: 153/92 SaO2: 95 Pulse Rate: 85 Respiratory Rate: 18 Temperature: 98.0 F Patient is:: Drowsy, Stable Stable to PACU at:: 13:48
--- NOTE | 2021-06-02 14:27 | HMH.ANESII ---
[facility] Anesthesia Record Part II Discharge Time: 14:18 Destination: Surgical Day Care (OP Surgery) PACU nurse assessment reviewed?: Yes Patient Condition:: Good Anesthesia Complications:: None Swallowing reflex intact?: Yes Cyanosis?: No Blood Pressure: 155/82 Pulse Rate: 80 Temperature: 97.7 F Mental Status: Alert & Oriented Pain level:: 5 Nausea and/or vomitting:: None Intake, IV Amount: 50
== END 2021-06-02 15:00 | disposition home or self-care (01) ==
LOC: OR 09:28
PROVIDERS: PCP Internal Medicine Adolescent Medicine; Visit Provider Surgery
PROC: (CPT 46930; principal; 2021-06-02 11:15)
DX: K64.8 Other hemorrhoids (principal); K62.3 Rectal prolapse; J44.9 Chronic obstructive pulmonary disease, unspecified; F32.9 Major depressive disorder, single episode, unspecified; K21.9 Gastro-esophageal reflux disease without esophagitis; G43.909 Migraine, unspecified, not intractable, without status migrainosus; M19.90 Unspecified osteoarthritis, unspecified site; Z79.899 Other long term (current) drug therapy
CPT/HCPCS: 46930; 96374; J2405

== ENCOUNTER → 2021-06-08 13:21 | Outpatient (POV) | payer BC, SELFPAY ==
[2021-06-08 13:43] VITALS: BP 144/85; PULSE 82; RESP 18; O2SAT 97; BMI 30.8
--- NOTE | 2021-06-08 14:06 | HMH.PAINSOAP ---
[facility] Pain Management SOAP Note Subjective:: Patient is a 50-year-old white female who presents today for follow-up. She is being treated for degenerative disc disease lumbar spine with lumbar radiculopathy symptoms. The patient has had 2 lumbar epidural steroid injections. Last injection was performed on 05/05/2021. Patient reports that she got about 70% relief, however, the patient reports pain did return within a week and a half. She is having pain on bilateral sides of low back with radiation into the right buttock. She says that it is a pulling sensation. She is scheduled for a psychological evaluation in 1 week to determine if she is an appropriate candidate to proceed with spinal cord stimulation trial. The patient does rate her pain a 5 out of 10 today. Review of Systems General: No recent weight changes, no fever, no sleep disturbances Respiratory: No cough, no shortness of air, no recurring pulmonary infections Cardiovascular/peripheral vascular: No chest pain, no palpitations, no edema, no shortness of breath Gastrointestinal: No new onset incontinence, normal bowel movements reported Genitourinary: No new onset incontinence Musculoskeletal: Low back pain with radiation into right buttock and bilateral lower extremities Psychiatric: [Normal mood/affect] Neurological: [Denies weakness in extremities], [denies balance issues] Objective:: Physical exam General: Alert and oriented x3, no acute distress, pleasant and cooperative, [on room air] Lungs: Respirations even and unlabored, symmetrical chest expansion Eyes: PERRL Musculoskeletal: Flexion and extension of lumbar [spine] somewhat guarded secondary to pain, strength in upper and lower extremities [5/5], [antalgic gait noted] Neurological: Speech clear, [civil designer equal], no gross sensory deficit Assessment:: Degenerative disc disease lumbar spine with lumbar radiculopathy symptoms, piriformis syndrome Plan:: We will schedule the patient for lumbar epidural steroid injection at L5-S1 area. Area. She is not on any anticoagulation therapy. She is pending psychological evaluation to determine if she is an appropriate candidate for spinal cord stimulation. This will be the patient's third lumbar epidural steroid injection. We will follow-up with her after her injection for reevaluation of symptoms. Possible side effects of corticosteroids have been discussed with the patient. Risks and benefits of the procedure have been explained to the patient. Patient would like to proceed with the procedure. Patient has been instructed to contact the clinic with any concerns before the next appointment. Dr. Barragan has reviewed this note and agrees with this plan of care. This note was dictated using voice recognition software and make contain errors or omissions. [facility] History I have reviewed the patient's past medical history: Yes Medical History: Reports:: Chronic Obstructive Pulmonary Disease (COPD), Depression, Gastroesophageal Reflux Disease(GERD), Migraine Denies:: Cancer, Diabetes Mellitus Type 1, Diabetes Mellitus Type 2, Internal Pacemaker, MRSA, Seizures *Have you ever received a pneumonia vaccine?: No *Have you received a flu vaccine this season?: Yes Other Medical History: Reports: Arthritis, Sinus Problems. Denies: Blood Transfusion Reaction Laterality Cases: Left: Carotid Endarterectomy, Bilateral: Tonsillectomy, Other Other Surgeries: Yes: Colonoscopy, Hysterectomy-Total, Hysterectomy-Partial, Other. No: Pacemaker Amputation: No Fractures: Yes - *Social History Smoking Status: Never smoker Tobacco Type: cigarettes Alcohol Intake: never Substance Use Type: denies use *Occupational Status:: employed Housing: house Household Members: significant other *Travel in the last 8 weeks: None - Psychiatric History Pschychiatric History:: Reports:: Depression Family Hx:: Unable to obtain
== END ==
PROVIDERS: Visit Provider Clinical Nurse Specialist Family Health
DX: M51.16 Intervertebral disc disorders with radiculopathy, lumbar region (principal); G57.00 Lesion of sciatic nerve, unspecified lower limb
CPT/HCPCS: 99212; G0463

== ENCOUNTER 2021-06-23 09:02 | Day surgery (SDC) | payer BC, SELFPAY ==
[2021-06-23 09:14] VITALS: BP 126/86; PULSE 77; RESP 18; TEMP 36.8; O2SAT 98; BMI 31.4
[2021-06-23 09:28] VITALS: BP 127/84; PULSE 71; RESP 18; O2SAT 97
[2021-06-23 09:30] VITALS: BP 121/78; PULSE 60; RESP 18; O2SAT 97
--- NOTE | 2021-06-23 09:36 | HMH.PMPROC ---
- Procedure Date: 06/23/21 Time: 09:36 Anesthesiologist:: Piter Barragan MD Complications:: None Pre-procedure Diagnosis:: Degenerative disc disease of lumbar spine with lumbar radiculopathy symptoms Post-procedure Diagnosis:: Same Indications for Procedure:: Patient is a pleasant 50-year-old white female who we are treating for low back pain with lumbar radiculopathy symptoms. She gets temporary relief from these epidural steroid injections. We are awaiting her psychological evaluation to try and get her approved for spinal cord stimulator trial as definitive treatment. We will plan on a lumbar epidural steroid injection today as she does get 70 to 80% relief with these injections for short period of time. Procedure Details:: Informed consent was obtained and the risk and benefits of the procedure was explained to the patient. The patient was taken to the procedure room. The patient was placed prone on the procedure table. The patient was prepped and draped in sterile fashion. C-arm fluoroscopy was used to view the lumbar spine. Skin and subcutaneous tissues were anesthetized using lidocaine. I placed an 18-gauge epidural needle and advanced into the L4-L5 interspace using fluoroscopic guidance and [id number] to air. After confirmation of needle placement in the epidural space with dye I injected 2 mL of lidocaine 1.5% with Depo-Medrol 80 mg. Patient tolerated the procedure well with no complications. Plan and Disposition:: We will follow-up with her in 2 weeks. Will reevaluate her symptoms at that time.
[2021-06-23 09:40] VITALS: BP 134/85; PULSE 69; RESP 20; O2SAT 98
== END 2021-06-23 09:40 | disposition home or self-care (01) ==
LOC: SC.PAINP 09:03
PROVIDERS: PCP Internal Medicine Adolescent Medicine; Visit Provider Anesthesiology
DX: M51.16 Intervertebral disc disorders with radiculopathy, lumbar region (principal); G43.909 Migraine, unspecified, not intractable, without status migrainosus; J44.9 Chronic obstructive pulmonary disease, unspecified; K21.9 Gastro-esophageal reflux disease without esophagitis; M19.90 Unspecified osteoarthritis, unspecified site; F32.9 Major depressive disorder, single episode, unspecified; F41.9 Anxiety disorder, unspecified
CPT/HCPCS: 62323; J1040; Q9966

== ENCOUNTER → 2021-07-06 13:14 | Outpatient (POV) | payer BC, SELFPAY ==
[2021-07-06 13:58] VITALS: BP 163/95; PULSE 70; RESP 18; O2SAT 96; BMI 31.0
--- NOTE | 2021-07-06 15:36 | HMH.PAINSOAP ---
[facility] Pain Management SOAP Note Subjective:: Patient is a 50-year-old white female who presents today for follow-up. The patient recently underwent a lumbar epidural steroid injection at L4-L5 area. The patient is awaiting spinal cord stimulator trial. Patient rates her pain a 10 out of 10. She says that her pain was made worse after the lumbar epidural steroid injection. She has had physical therapy for more than 6 weeks [address] see Dr. Moon with [facility] chiropractic therapy. She was informed by Dr. Moon that she should not proceed with the spinal cord stimulator trial and would be better suited to go to neurosurgery for evaluation. As result the patient has decided to defer on the spinal cord stimulator trial. The patient says that the pain is progressively worsening into her low back and causing her right leg to go completely numb. She says that her right hand is also numb. She was referred to Dr. Robertson by Dr. Morgan, however would like to go to [facility] neurosurgery. Patient says she has tried oral medications and has tried home stretching as well as ice and heat therapies and has gotten no relief. Though she has been worked up for spinal cord stimulator trial she has decided to follow the recommendation of her chiropractor at this time. See the specialist review of Systems General: No recent weight changes, no fever, no sleep disturbances Respiratory: No cough, no shortness of air, no recurring pulmonary infections Cardiovascular/peripheral vascular: No chest pain, no palpitations, no edema, no shortness of breath Gastrointestinal: No new onset incontinence, normal bowel movements reported Genitourinary: No new onset incontinence Musculoskeletal: Low back pain with radiation into right leg with numbness and tingling, right hand numbness and tingling Psychiatric: [Normal mood/affect] Neurological: [Denies weakness in extremities], [denies balance issues] Objective:: Physical exam General: Alert and oriented x3, no acute distress, pleasant and cooperative Lungs: Respirations even and unlabored, symmetrical chest expansion Eyes: PERRL Musculoskeletal: Flexion and extension of cervical and lumbar [spine] somewhat guarded secondary to pain, [antalgic gait noted] Neurological: Speech clear, no gross sensory deficit Assessment:: Degenerative disc disease lumbar spine with lumbar radiculopathy symptoms, worsening low back pain Plan:: Patient has decided to undergo a neurosurgical evaluation. She is deferred on spinal cord stimulator trial at this time. She would like referral to [facility] neurosurgery. She is having pain in her low back with radiation into her right leg with numbness and tingling as well as right arm with numbness and tingling. She is not having any saddle anesthesia or changes in bowel or bladder habit. We will refer the patient to neurosurgery and see her back in the clinic as needed. She is welcome to return to the clinic for possible work-up once again for spinal cord stimulation if she does change her mind in the future. Patient has been instructed to contact the clinic with any concerns before the next appointment. Dr. Barragan has reviewed this note and agrees with this plan of care. This note was dictated using voice recognition software and make contain errors or omissions. [facility] History I have reviewed the patient's past medical history: Yes Medical History: Reports:: Chronic Obstructive Pulmonary Disease (COPD), Depression, Gastroesophageal Reflux Disease(GERD), Migraine Denies:: Cancer, Diabetes Mellitus Type 1, Diabetes Mellitus Type 2, Internal Pacemaker, MRSA, Seizures *Have you ever received a pneumonia vaccine?: No *Have you received a flu vaccine this season?: Yes Other Medical History: Reports: Arthritis, Sinus Problems. Denies: Blood Transfusion Reaction Laterality Cases: Left: Carotid Endarterectomy, Bilateral: Tonsillectomy, Other Other Surgeries: Yes: Colonoscopy, Hysterect
== END ==
PROVIDERS: Visit Provider Clinical Nurse Specialist Family Health
DX: M51.16 Intervertebral disc disorders with radiculopathy, lumbar region (principal)
CPT/HCPCS: 99212; G0463

== ENCOUNTER → 2021-12-11 10:17 | Outpatient (CLI) | payer BC, SELFPAY ==
--- NOTE | 2021-12-11 10:21 | XR_ITS ---
FINAL REPORT CLINICAL HISTORY: pain, hisotry of fracture, pt stepped on it wrong yesterday COMPARISON: 04/18/2021 FINDINGS: LEFT FOOT 2 views of the left foot were obtained. There are postoperative changes to the fifth metatarsal with increased healing and bony fusion. Lucency is again seen surrounding the distal aspect of the screw, loosening not excluded. There are mild degenerative changes of the first MTP joint. There is no acute fracture or dislocation. Visualized joint spaces are normally aligned. There is a plantar calcaneal spur. Soft tissues are unremarkable. IMPRESSION: Increased healing with bony fusion of the fifth metatarsal. Lucency surrounding the distal aspect of the screw, unchanged from prior exam, loosening not excluded. Reviewed, Interpreted and Dictated by Oc Sibley III, MD Transcribed by Kelsy Pablo Authenticated by Oc Sibley III, MD on 12/11/2021 12:33:48 PM [facility]
== END ==
LOC: RAD 10:18
PROVIDERS: PCP Internal Medicine Adolescent Medicine; Visit Provider Podiatrist
DX: M79.672 Pain in left foot (principal)
CPT/HCPCS: 73630

== ENCOUNTER → 2021-12-25 15:39 | Outpatient (CLI) | payer BC, SELFPAY ==
--- NOTE | 2021-12-25 15:47 | CT_ITS ---
FINAL REPORT TECHNIQUE: Thin section axial CT images with coronal and sagittal reformats as well as 3D reformatted images were performed. This study was performed with techniques to keep radiation doses as low as reasonably achievable (ALARA). Individualized dose reduction techniques using automated exposure control or adjustment of mA and/or kV according to the patient''s size were employed. CLINICAL HISTORY: 5th metatarsal pain COMPARISON: 09/27/2019 FINDINGS: There are postoperative changes of ORIF of the left 5th metatarsal fracture. Increased lucency is seen surrounding the screw worrisome for loosening. There is also a new lucency along the lateral cortex of the 5th metatarsal worrisome for fracture. IMPRESSION: Findings worrisome for hardware loosening and new fracture along the lateral cortex of the 5th metatarsal. Reviewed, Interpreted and Dictated by Oc Sibley III, MD Transcribed by Kelsy Pablo Authenticated by Oc Sibley III, MD on 12/25/2021 05:12:[address] [facility]
[2021-12-25 16:56] LABS: Basophils # 0.1 K/mm3 (0-0.2); Basophils % 0.8 % (0.1-2.0); Eosinophils # 0.2 K/mm3 (0.0-0.4); Eosinophils % 2.9 % (0.1-12.0); Hematocrit 39.5 % (37.0-47.0); Hemoglobin 12.8 g/dL (12.2-16.2); Lymphocytes # 2.7 K/mm3 (0.7-4.5); Lymphocytes % 35.1 % (10-50); Mean Corpuscular HGB Conc 32.6 g/dL (31.8-35.4); Mean Corpuscular Hemoglobin 28.7 pg (27.0-31.2); Mean Corpuscular Volume 88.1 fl (81-99); Mean Platelet Volume 7.1 fl (7.4-10.4); Monocytes # 0.4 K/mm3 (0.1-1.0); Monocytes % 5.1 % (1.7-9.3); Neutrophils # 4.4 K/mm3 (1.8-7.8); Neutrophils % 56.2 % (37.0-80.0); Platelet Count 406 K/mm3 (142-424); Red Blood Count 4.48 M/mm3 (4.20-5.40); Red Cell Distribution Width 14.9 % (11.5-17.5); White Blood Count 7.8 K/mm3 (4.8-10.8)
[2021-12-25 17:00] LABS: Alanine Aminotransferase 34 U/L (12-78); Albumin/Globulin Ratio 1.6 (1.1-1.8); Alkaline Phosphatase 134 U/L (38-126); Anion Gap 8.7 mEq/L (5-15); Aspartate Amino Transferase 26 U/L (14-36); Bilirubin,Total 0.3 mg/dl (0.2-1.3); Blood Urea Nitrogen 13 mg/dl (7-17); Carbon Dioxide 30 mmol/L (22.0-30.0); Chloride 105 mmol/L (98-107); Estimated Glomerular Filt Rate 89 ml/min (>60); GFR (African American) 107 ML/MIN (>60); Globulin 2.5 g/dL (1.3-3.2); Glucose 114 mg/dl (74-100); Potassium 3.7 mmoL/L (3.5-5.1); Sodium 140 mmol/L (136-145); Total Protein,Serum 6.5 g/dl (6.3-8.2)
[2021-12-25 17:06] LABS: C-Reactive Protein 15.2 mg/L (0-4)
[2021-12-25 18:13] LABS: Erythrocyte Sedimentation Rate 22 mm/hr (0-20)
[2021-12-31 21:07] LABS: 1,25 Dihydroxy Vitamin D 33 pg/mL (.); 1,25-Dihydroxy, Vitamin D-2 <10 pg/mL (.); 1,25-Dihydroxy, Vitamin D-3 33 pg/mL (.)
== END ==
LOC: RAD 15:39
PROVIDERS: PCP Internal Medicine Adolescent Medicine; Visit Provider Podiatrist
DX: S99.192A Other physeal fracture of left metatarsal, initial encounter for closed fracture (principal)
CPT/HCPCS: 36415; 73700; 80053; 82652; 85025; 85651; 86140

== ENCOUNTER 2022-02-25 13:34 | Emergency (ER) | payer BC, SELFPAY ==
[2022-02-25 13:51] VITALS: BP 156/92; PULSE 110; RESP 17; TEMP 36.6; O2SAT 95; BMI 35.5
--- NOTE | 2022-02-25 14:11 | HMH.EDUTC ---
[facility] [place] Clinical Impression: Bronchitis Sinusitis Qualifiers: Sinusitis location: unspecified location Chronicity: acute Recurrence: non-recurrent Qualified Code(s): J01.90 - Acute sinusitis, unspecified Disposition: Home, Self-Care Condition on Discharge: Good Instructions: DI for Sinusitis, DI for Acute Bronchitis Additional Instructions: Drink plenty of fluids. Take tylenol or ibuprofen for pain or fever. Take the medications as directed. Follow up with your regular doctor. GO TO THE ER FOR ANY WORSENING SYMPTOMS Don't start the oral steroids until tomorrow, since you had the shot here today. Prescriptions: Benzonatate [Benzonatate 100mg cap] 100 mg PO TIDP PRN #30 cap PRN Reason: Cough Transmission Status: Received by [facility] methylPREDNISolone [Medrol] 4 mg PO DIRECTED 6 Days #21 packet Transmission Status: Received by [facility] Azithromycin [Z-Ab 250mg Tab*] 250 mg PO UD DOSE PK #6 tab Transmission Status: Received by [facility] Referrals: Giovanny Fernando MD [Primary Care Provider] - Medical Decision Making - Medical Records Medical records reviewed: No: I reviewed the patient's medical records. - Leno Inquiry Pt receiving controlled substance: No Vital Signs: 02/25/22 13:51 02/25/22 14:26 Temperature 97.8 F 97.8 F Temperature Source Oral Pulse Rate 110 H Pulse Rate [Left Radial] 110 H Respiratory Rate 17 17 Blood Pressure 156/92 H Blood Pressure [Right Arm] 156/92 H Blood Pressure Mean [Right Arm] 113 02 Sat by Pulse Oximetry 95 Orders (Tests/Meds): ED MEDICATIONS Discontinued Medications Generic Name Dose Route Start Last Admin Trade Name Freq PRN Reason Stop Dose Admin Methylprednisolone Sodium Succinate 125 mg 02/25/22 14:19 02/25/22 14:25 Methylprednisolone Sod Succ 125mg Vial IM 02/25/22 14:20 125 mg ONCE ONE Administration Medical Decision Narrative: She refused a covid test or any viral testing today. [facility] [place] - General Stated complaint: sore throat, loss of voice Time Seen by Provider: 02/25/22 14:11 Description of Symptoms (Recalled from Triage Doc. by RN): patient comes in with complaints of cough, head congestion and horseness. HEENT Symptoms (Recalled from RN notes): Yes Resp Symptoms (Recalled from RN notes): Yes Skin Symptoms (Recalled from RN notes): No MS Symptoms (Recalled from RN notes): No Functional Status (Recalled from RN notes): wnl - History of Present Illness Provider Complaint: She states that for the past 3 days she has had worsening sore throat, voice hoarsness, malaise, nonproductive cough. - Related Data Home Medications Medication Instructions Recorded Confirmed cyanocobalamin (vitamin B-12) 10,000 mcg SUB-Q DAILY 28 Days #1 03/31/18 01/22/22 1,000 mcg/mL injection solution pantoprazole 40 mg tablet,delayed 40 mg PO DAILY 30 Days #60 03/31/18 01/22/22 release venlafaxine 150 mg 150 mg PO DAILY cap 09/14/19 01/22/22 capsule,extended release 24 hr melatonin 3 mg tablet 3 mg PO HS tab 09/29/20 01/22/22 bupropion HCl 150 mg 24 hr tablet, 150 mg PO DAILY tab 04/18/21 01/22/22 extended release dulaglutide 0.75 mg/0.5 mL 0.75 mg SQ WEEKLY 01/22/22 01/22/22 subcutaneous pen injector Previous Rx's Medication Instructions Recorded diclofenac sodium 1 % topical gel 4 g TOPICAL QID PRN 90 Days #100 g 04/18/21 Hydrocod/Acet 5/325 mg [[place] 1 - 2 tab PO Q6HP PRN #23 tab 06/02/21 5/325mg tablet] hydrocortisone 2.5 % topical cream 1 applic AK QD-BID PRN #30 g 06/14/21 with perineal applicator Azithromycin [Z-Ab 250mg Tab*] 250 mg PO UD DOSE PK #6 tab 02/25/22 Benzonatate [Benzonatate 100mg 100 mg PO TIDP PRN #30 cap 02/25/22 cap] methylPREDNISolone [Medrol] 4 mg PO DIRECTED 6 Days #21 02/25/22 packet Allergies Allergy/AdvReac Type Severity Reaction Status Date / Time No
[2022-02-25 14:26] VITALS: BP 156/92; PULSE 110; RESP 17; TEMP 36.6
== END 2022-02-25 14:32 | disposition home or self-care (01) ==
PROVIDERS: Emergency Provider Nurse Practitioner Family; PCP Internal Medicine Adolescent Medicine
DX: J40 Bronchitis, not specified as acute or chronic (principal); J01.90 Acute sinusitis, unspecified
CPT/HCPCS: 96372; 99212; G0463

== ENCOUNTER → 2022-04-13 14:57 | Outpatient (CLI) | payer BC, SELFPAY ==
[2022-04-13 15:30] LABS: Hematocrit 41.5 % (37.0-47.0); Hemoglobin 12.8 g/dL (12.2-16.2); Mean Corpuscular HGB Conc 30.8 g/dL (31.8-35.4); Mean Corpuscular Hemoglobin 28.3 pg (27.0-31.2); Mean Corpuscular Volume 91.8 fl (81-99); Platelet Count 396 K/mm3 (142-424); Red Blood Count 4.52 M/mm3 (4.20-5.40); Red Cell Distribution Width 14.6 % (11.5-17.5); White Blood Count 9.3 K/mm3 (4.8-10.8)
[2022-04-13 16:08] LABS: Albumin Level 3.9 g/dl (3.5-5.0); Anion Gap 8.2 mEq/L (5-15); Blood Urea Nitrogen 13 mg/dl (7-17); Calcium 9.4 mg/dl (8.4-10.2); Carbon Dioxide 30 mmol/L (22.0-30.0); Chloride 105 mmol/L (98-107); Estimated Glomerular Filt Rate 89 ml/min (>60); GFR (African American) 107 ML/MIN (>60); Glucose 99 mg/dl (74-100); Potassium 4.2 mmoL/L (3.5-5.1); Sodium 139 mmol/L (136-145)
== END ==
PROVIDERS: PCP Internal Medicine Adolescent Medicine; Visit Provider Orthopaedic Surgery
DX: Z01.818 Encounter for other preprocedural examination (principal); M16.11 Unilateral primary osteoarthritis, right hip
CPT/HCPCS: 36415; 80048; 82040; 85014; 85018; 85048; 85049

== ENCOUNTER → 2022-04-20 11:19 | Outpatient (CLI) | payer BC, SELFPAY | PROVIDERS: PCP Internal Medicine Adolescent Medicine | DX: Z01.812 Encounter for preprocedural laboratory examination (principal); Z20.822 Contact with and (suspected) exposure to COVID-19; M19.071 Primary osteoarthritis, right ankle and foot | CPT/HCPCS: C9803; U0003; U0005 ==

== ENCOUNTER → 2022-05-16 13:04 | Outpatient (CLI) | payer BC, SELFPAY ==
--- NOTE | 2022-05-16 | CA_ITS ---
FINAL REPORT TECHNIQUE: Color Doppler, duplex Doppler and compression sonography of the right lower extremity venous system was performed. CLINICAL HISTORY: Patient is post op for right hip replacement done 04/25/22. She states she was instructed to take blood thinners for 28 days post op but quit taking them 1 week after surgery for fear of thinning blood too much. Notes RLE edema today mostly in the calf region. HTN, DM, obesity. FINDINGS: There is no evidence of deep venous thrombosis from the level of the groin to the calf. The veins are patent and compressible. IMPRESSION: No evidence of deep venous thrombosis right lower extremity. Reviewed, Interpreted and Dictated by Oc Sibley III, MD Transcribed by Radha Cason Authenticated and [facility]
== END ==
LOC: RT 13:05
PROVIDERS: PCP Internal Medicine Adolescent Medicine; Visit Provider Nurse Practitioner Family
DX: R22.41 Localized swelling, mass and lump, right lower limb (principal)
CPT/HCPCS: 93971

== ENCOUNTER → 2022-05-24 12:08 | Outpatient (CLI) | payer BC, SELFPAY ==
--- NOTE | 2022-05-24 12:13 | XR_ITS ---
FINAL REPORT CLINICAL HISTORY: NECK PAIN ....TREMOR FINDINGS: CERVICAL SPINE Four views were obtained. There is no acute fracture. There is no malalignment. There are mild degenerative changes in the lower cervical spine. There is mild bilateral neural foraminal narrowing at C5-6. There is no soft tissue abnormality. IMPRESSION: Degenerative change in the lower cervical spine with mild bilateral C5-6 neural foraminal narrowing. Reviewed, Interpreted and Dictated by Oc Sibley III, MD Transcribed by Radha Cason Authenticated and [facility]
== END ==
PROVIDERS: PCP Nurse Practitioner Family; Visit Provider Nurse Practitioner Family
DX: M54.2 Cervicalgia (principal); R25.1 Tremor, unspecified
CPT/HCPCS: 72050

== ENCOUNTER → 2022-07-02 09:09 | Outpatient (CLI) | payer BC, SELFPAY ==
--- NOTE | 2022-07-02 09:15 | XR_ITS ---
FINAL REPORT CLINICAL HISTORY: FOOT PAIN COMPARISON: 04/18/2021 FINDINGS: RIGHT FOOT Three weight-bearing views of the right foot demonstrate no acute fracture or dislocation. The visualized joint spaces are normally aligned. There are mild degenerative changes. There is a small plantar calcaneal spur. The soft tissues are unremarkable. IMPRESSION: Stable degenerative changes with no acute bony abnormality. Reviewed, Interpreted and Dictated by Oc Sibley III, MD Transcribed by Radha Cason Authenticated and [facility]
--- NOTE | 2022-07-02 09:15 | XR_ITS ---
FINAL REPORT CLINICAL HISTORY: LATERAL FOOT PAIN COMPARISON: 12/11/2021 FINDINGS: LEFT FOOT Three weight-bearing views of the left foot demonstrate no acute fracture or dislocation. There are mild degenerative changes. There are postoperative changes of the proximal 5th metatarsal. There is a screw present in this region with lucency surrounding the mid and distal aspects of the screw worrisome for loosening, stable. There is a new defect in the cortex of the mid 5th metatarsal which is seen on the oblique view. This could represent a nondisplaced fracture versus bony erosion. IMPRESSION: Lucency surrounding the mid and distal aspects of the screw, worrisome for loosening but stable from the prior exam. New defect in the cortex of the 5th metatarsal could represent a nondisplaced fracture versus bony erosion. Reviewed, Interpreted and Dictated by Oc Sibley III, MD Transcribed by Radha Cason Authenticated and [facility]
== END ==
PROVIDERS: PCP Nurse Practitioner Family; Visit Provider Podiatrist
DX: M79.671 Pain in right foot (principal); M79.672 Pain in left foot
CPT/HCPCS: 73630

== ENCOUNTER → 2022-08-21 11:52 | Outpatient (CLI) | payer BC, SELFPAY ==
--- NOTE | 2022-08-21 | CA_ITS ---
APPROVED REPORT Exam: Pharmacologic Technologist: Abby Perkins, Ht: 5 ft 7 in Wt: 237 lbs BSA: 2.17 m2 HR: 68 bpm BP: 138/80 mmHg Rhythm: NSR, LBBB. POOR R WAVE PROGRESSION Medical History Medical History: HTN Medications: Losartan,,,,, Pantoprazole,,,,, Naproxen,,,,, Tramadol,,,,, Montelukast,,,,, MeLOXICAM,,,,, Vit D3,,,,, Vit B12,,,,, BenzONATATE,,,,, Venlafaxine,,,,, TrULicity,,,,, Diclofenac Sodium,,,,, Allergies: No known drug allergies Cardiac Risk Factors: HTN Stress Test Details Test: LEXISCAN HR Resting HR: 63 bpm Max Heart Rate (APMHR): 170.183550 bpm Max HR Achieved: 100 bpm Target HR (85% APMHR): 144.249194 bpm % of APMHR: 58.82 Recovery HR: 76 bpm BP Resting BP: 138/80 mmHg Max BP: 146/85 mmHg ECG Resting ECG: NSR, LBBB, POOR R WAVE PROGRESSION Clinical Exercise duration: 04:01 min Highest Stage Achieved: Stress ECG Conclusion PT HAD MILD SOA AND CHEST PRESSURE. MILD HEADACHE RARE PAC NO SIGNIFICANT CHANGES NON-DIAGNOSTIC LEXISCAN STRESS MYOVIEW IMAGES REPORTED SEPARATELY Test Summary REST 07:44 . . 63 . 138/ 80 . . Stage 1 01:00 . . 94 . . . . Stage 2 01:00 . . 96 . 146/ 85 . . Stage 3 01:00 . . 95 . 146/ 87 . . Stage 4 01:00 . . 91 . 133/ 80 . . Stage 4 01:01 . . 91 . 133/ 80 . Stop exercise at 04:01 RECOVERY 01:00 . . 86 . . . . RECOVERY 02:00 . . 87 . . . . RECOVERY 03:00 . . 77 . 140/ 87 . . RECOVERY 03:31 . . 81 . 140/ 87 . . Electronically signed by : Luc Parks MD 08/21/2022 19:47:57
--- NOTE | 2022-08-21 11:58 | NM_ITS ---
APPROVED REPORT Exam: Nuclear Stress Test Indication: chest pain..short of breath Patient Location: Outpatient Stress Tech: Abby Perkins NM Tech:Laxmi TrejoWES RT(R)(N) Ht: 5 ft 7 in Wt: 237 lbs Bra Size: 38d HR: 63 bpm BP: 138/80 mmHg BSA: 2.17 m2 TID: 1.35 BMI: 37.1 History: chest pain..short of breath Procedure: Patient received a 0.4 mg of intravenous Lexiscan, resting heart rate 63 bpm, resting blood pressure 138/80 mmHg, with Lexiscan maximum heart rate achived was 100 bpm which is Less than 85 % of the maximum predicted heart rate and blood pressure was 146/85 mmHg. With Lexiscan, patient denied any complaint of chest pain. Electrocardiogram Resting electrocardiogram shows sinus rhythm with a bundle branch block, with Lexiscan there is less than 1.[address] segment depression noted from the baseline ECG. The EKG portion of the Lexiscan is nondiagnostic. Cardiac Stress and Resting SPECT Images: Cardiac Stress and Resting SPECT images were obtained using technetium 99m Myoview 31.6 mCi stress and 10.45 mCi at rest. Gated SPECT for analysis of segmental wall motion and calculation of the ejection fraction also done. Cardiac cystinosis potential uniform myocardial activity without segmental perfusion abnormality, however there is transient ischemic dilatation of the left ventricle seen, raising the concerns for presence of balanced ischemia. Computer derived ejection fraction is 53% with no regional wall motion abnormality, right ventricle is normal size and contractility. Conclusion: 1. The EKG portion of the Lexiscan is nondiagnostic. 2. No scintigraphic evidence of reversible ischemia seen, computer derived ejection fraction is 53% with no regional wall motion abnormality, however there is, transient ischemic dilatation of the left ventricle seen, raising the concern for presence of balanced ischemia or multivessel coronary artery disease. 3. Abnormal Lexiscan Myoview study. Electronically signed by : Luc Parks MD 08/21/2022 19:52:18
--- NOTE | 2022-08-21 13:43 | HMH.ITSHM ---
Current Home Medications as stated by this patient Sera Matthews or housing management representative. []VENLAFAXINE TRAMADOL PANTOPRAZOLE NAPROXEN MONTELUKAST MELOXICAM MELATONIN LOSARTAN FLUTICASONE DULAGLUTIDE DICLOFENAC VITAMIN B12 BENZONATATE VITAMIN D3 CETIRIZINE
== END ==
PROVIDERS: PCP Nurse Practitioner Family; Visit Provider Nurse Practitioner Family
DX: R07.9 Chest pain, unspecified (principal); I10 Essential (primary) hypertension
CPT/HCPCS: 78452; 93017; A9502; J2785

== ENCOUNTER → 2022-08-30 09:45 | Outpatient (CLI) | payer BC, SELFPAY ==
[2022-08-30 11:08] LABS: Basophils # 0.1 K/mm3 (0-0.2); Basophils % 0.8 % (0.1-2.0); Eosinophils # 0.1 K/mm3 (0.0-0.4); Eosinophils % 1.6 % (0.1-12.0); Hematocrit 39.8 % (37.0-47.0); Hemoglobin 12.6 g/dL (12.2-16.2); Lymphocytes # 2.1 K/mm3 (0.7-4.5); Lymphocytes % 24.9 % (10-50); Mean Corpuscular HGB Conc 31.6 g/dL (31.8-35.4); Mean Corpuscular Hemoglobin 27.9 pg (27.0-31.2); Mean Corpuscular Volume 88.2 fl (81-99); Mean Platelet Volume 7.5 fl (7.4-10.4); Monocytes # 0.6 K/mm3 (0.1-1.0); Monocytes % 6.9 % (1.7-9.3); Neutrophils # 5.6 K/mm3 (1.8-7.8); Neutrophils % 65.8 % (37.0-80.0); Platelet Count 419 K/mm3 (142-424); Red Blood Count 4.52 M/mm3 (4.20-5.40); Red Cell Distribution Width 14.6 % (11.5-17.5); White Blood Count 8.5 K/mm3 (4.8-10.8)
[2022-08-30 11:30] LABS: Alanine Aminotransferase 24 U/L (12-78); Albumin Level 4.1 g/dl (3.5-5.0); Alkaline Phosphatase 169 U/L (38-126); Anion Gap 12.1 mEq/L (5-15); Aspartate Amino Transferase 23 U/L (14-36); Blood Urea Nitrogen 21 mg/dl (7-17); Calcium 9.8 mg/dl (8.4-10.2); Carbon Dioxide 24 mmol/L (22.0-30.0); Chloride 107 mmol/L (98-107); Chol/HDL Ratio 4.4 (1-3.5); Cholesterol 176 mg/dl (140-200); Estimated Glomerular Filt Rate 89 ml/min (>60); GFR (African American) 107 ML/MIN (>60); Glucose 103 mg/dl (74-100); HDL Cholesterol 40 mg/dl (40-60); Magnesium 1.9 mg/dl (1.6-2.3); Potassium 4.1 mmoL/L (3.5-5.1); Sodium 139 mmol/L (136-145); Total Protein,Serum 6.7 g/dl (6.3-8.2); Triglycerides 98 mg/dl (30-150); VLDL Cholesterol 20 mg/dL (0-40)
[2022-08-30 11:37] LABS: Bilirubin,Total < 0.1 mg/dl (0.2-1.3)
[2022-08-30 11:45] LABS: Free T4 (Free Thyroxine) 1.03 ng/dl (0.78-2.19)
[2022-08-30 11:46] LABS: Direct LDL Cholesterol 103.02 mg/dL (100-129)
[2022-08-30 11:59] LABS: Thyroid Stimulating Hormone 1.87 uIU/mL (0.465-4.68)
[2022-08-30 12:44] LABS: Bilirubin,Indirect 0.1 mg/dL (0.0-0.9)
== END ==
PROVIDERS: PCP Nurse Practitioner Family; Visit Provider Nurse Practitioner
DX: I20.8 Other forms of angina pectoris (principal); I10 Essential (primary) hypertension; R94.30 Abnormal result of cardiovascular function study, unspecified
CPT/HCPCS: 36415; 80048; 80061; 80076; 83735; 84439; 84443; 85025

== ENCOUNTER 2022-09-05 08:45 | Day surgery (SDC) | payer BC, SELFPAY ==
[2022-09-05] VITALS (15 sets, daily range): BP systolic 114–153; BP diastolic 55–80; PULSE 55–77; RESP 16–18; O2SAT 93–100; BMI 37.9
--- NOTE | 2022-09-05 07:16 | IR_ITS ---
APPROVED REPORT Patient Location: Outpatient Colorer: WES Farias RT (R) PROCEDURES Left heart catheterization Left ventriculogram Selective coronary angiogram INDICATION Abnormal Myoview, Angina pectoris Informed consent was obtained prior to the procedure. COMPLICATIONS None Estimated Blood Loss: Less than 10 mls TECHNIQUE One percent lidocaine used to anesthetize the right anterior aspect of the wrist. The right radial artery was accessed via the Seldinger technique. A 6 Mauritanian sheath was placed in the right radial artery. 2.5 mg of verapamil, 800 mcg of nitroglycerin, 1mg Lidocaine and 5000 U Heparin were given through the arterial sheath. The papa catheter was also used to perform left heart catheterization, left ventriculogram and selective coronary angiogram. At the end of the procedure the sheath was removed good hemostasis was achieved using Traclet band, patient was transferred to the postop holding area in stable condition. ANGIOGRAPHIC RESULTS The left main artery Normal The left anterior descending artery Normal The circumflex artery Normal The right coronary artery Codominant normal The SALAZAR ventriculogram reveals Dilated ventricle ejection fraction 50% The left ventricular end-diastolic pressure 25 mmHg IMPRESSION Normal coronary arteries Slightly dilated ventricle with slightly reduced ejection fraction accompanied by moderate to severely elevated LVEDP consistent with diastolic dysfunction PLAN 1. Treatment of diastolic dysfunction 2. Avoidance of carbonated drinks 3. Recommend sleep study Electronically signed by : Edwin Tellez MD 09/05/2022 11:06:18
--- NOTE | 2022-09-05 08:48 | CA_ITS ---
APPROVED REPORT EXAM: Comprehensive 2D, Doppler, and color-flow Echocardiogram X Ray Service Engineer: Amrita Villa RVT Ht: 5 ft 7 in Wt: 242lbs BSA: 2.19 BP: 137/82 mmHg Indications: CP,ABN EKG,HTN,EDEMA,PALPS 2D Dimensions LVOT 2.84 cm (M/F) 1.5-2.5 LA Volume 21.50 mL LA Volume Index 9.82 mL/m2 (M/F) 16-34 M-Mode Dimensions RVDd 2.18 cm (0.9-2.6) LA Diam 3.03 cm (1.9-4.0) LVDd 5.97 cm (3.5-5.7) Ao Diam 3.26 cm (2.0-3.7) LVDs 4.22 cm (3.5-5.7) IVSd 0.43 cm (0.6-1.1) PWd 0.46 cm (0.6-1.1) EF (Teich) 55.30% FS 29.30% EDV (Teich) 177.90 mL TAPSE 2.70 (<1.7) ESV (Teich) 79.50 mL LV Diastology E Decel Time 227.00 (160-240 msec) E/A Ratio 1.2 MED E' 7.40 (< 7 cm/sec) E'/MED E' Ratio 14.70 (>14) LAT E' 8.70 (<10 cm/sec) E/LAT E' Ratio 12.51 (>14) Aortic Valve AO Peak GR. 8.00 mmHg Mitral Valve MV E Max Hardik. 109.00 (40-130 cm/s) MV A Velocity 92.00 (40-130 cm/s) E/A Ratio 1.18 MV Decel. Time 227.00 (160-240 ms) MV PHT 66.00 ms Pulmonary Valve PV Peak Velocity 87.00 (50-150 cm/s) Tricuspid Valve TR P. Velocity 151.00 cm/s RAP Estimate 10.00 mmHg RVSP 19.10 mmHg Left Ventricle Technically difficult study because of the patient factors and poor acoustic windows. Left atrium is normal size, left ventricle is normal size, estimated ejection fraction 55% with no regional wall motion abnormality, diastolic parameters are within normal range. Right Ventricle Right atrium and right ventricle are normal size and contractility. Aortic Valve Aortic valve is minimally thickened and fibrosed there is no aortic stenosis or aortic insufficiency. Mitral Valve Mitral valve is grossly normal, there is trace mitral regurgitation. Tricuspid Valve Tricuspid valve grossly normal, there is trace tricuspid regurgitation, tricuspid regurgitation jet velocity is inadequate for calculation of the right ventricular systolic pressure. Pulmonic Valve Pulmonic valve is poorly visualized. Great Vessels Aortic root is normal size. Inferior vena cava is normal size with normal inspiratory collapse. Pericardium No significant pericardial effusion noted. Conclusion 1. Technically difficult study because of the patient factors and poor acoustic windows. 2. Normal left ventricular size, preserved left ventricular systolic function, estimated ejection fraction 55% with no regional wall motion abnormality, diastolic parameters are within normal range. 3. Trace mitral and tricuspid regurgitation. 4. No significant pericardial effusion noted. 5. Inferior vena cava is normal size with normal inspiratory collapse. Electronically signed by : Luc Parks MD 09/05/2022 20:49:57
== END 2022-09-05 14:08 | disposition home or self-care (01) ==
PROVIDERS: PCP Nurse Practitioner Family; Visit Provider Internal Medicine
DX: I25.118 Atherosclerotic heart disease of native coronary artery with other forms of angina pectoris (principal); I10 Essential (primary) hypertension; R94.31 Abnormal electrocardiogram [ECG] [EKG]; Z79.899 Other long term (current) drug therapy; Z82.49 Family history of ischemic heart disease and other diseases of the circulatory system; R94.30 Abnormal result of cardiovascular function study, unspecified; E11.9 Type 2 diabetes mellitus without complications; Z79.4 Long term (current) use of insulin
CPT/HCPCS: 93306; 93458; 99152; C1725; C1769; J1644; Q9967

== ENCOUNTER → 2022-09-27 08:07 | Outpatient (CLI) | payer BC, SELFPAY ==
--- NOTE | 2022-09-27 08:20 | XR_ITS ---
FINAL REPORT CLINICAL HISTORY: foot pain, h/o fx 5th metatarsal COMPARISON: 07/02/2022 FINDINGS: AP, oblique and lateral views of the left foot were obtained. There are postoperative changes from ORIF of the 5th metatarsal. Lucency surrounding the surgical screw is stable. There is no acute osseous abnormality. There are mild degenerative changes of the 1st metatarsophalangeal joint. There is no acute fracture or dislocation. IMPRESSION: Postoperative changes of ORIF. Lucency surrounding the surgical screw, stable, loosening is not excluded. Reviewed, Interpreted and Dictated by Kathy Esqueda MD Transcribed by Melissa Mendoza Authenticated and [facility]
--- NOTE | 2022-09-27 08:20 | XR_ITS ---
FINAL REPORT CLINICAL HISTORY: foot pain COMPARISON: 07/02/2022 FINDINGS: AP, oblique and lateral views of the right foot were obtained. There is no prior exam for comparison. There is no acute fracture or dislocation. The joint spaces are preserved. Soft tissues are normal. IMPRESSION: No acute osseous abnormality of the right foot. Reviewed, Interpreted and Dictated by Kathy Esqueda MD Transcribed by Melissa Mendoza Authenticated and [facility][1]
== END ==
LOC: RAD 08:08
PROVIDERS: PCP Nurse Practitioner Family; Visit Provider Podiatrist
DX: M79.671 Pain in right foot (principal); M79.672 Pain in left foot
CPT/HCPCS: 73630

== ENCOUNTER → 2022-10-18 11:11 | Outpatient (CLI) | payer BC, SELFPAY ==
--- NOTE | 2022-10-18 11:13 | MM_ITS ---
PROCEDURE INFORMATION: Exam: MG Bilateral Screening 3D Mammography Exam date and time: 10/18/2022 11:15 AM Age: 52 years old Clinical indication: Screening. No family history of breast cancer. TECHNIQUE: Imaging protocol: Bilateral Screening tomosynthesis and 2D mammography including computer-aided detection (CAD) when performed. COMPARISON: 1. MG MM DIG SCREENING MAMM BI W/CAD 05/11/2021 8:05 AM 2. MG MM DIG SCREENING MAMM BI W/CAD 05/10/2020 4:08 PM 3. MG DMSB DIG MAMM-SCREEN ANGIE 02/08/2016 5:08 PM FINDINGS: MAMMOGRAPHY: Breast composition: There are scattered areas of fibroglandular density. Mass: No suspicious mass.Architectural distortion: None. Calcifications: No suspicious calcifications. Asymmetric density: None. Skin thickening: None. Axillary adenopathy: None. IMPRESSION: No mammographic evidence of malignancy. Annual screening is recommended unless otherwise clinically indicated. ASSESSMENT: BI-RADS Category 1: Negative
== END ==
PROVIDERS: PCP Nurse Practitioner Family; Visit Provider Nurse Practitioner Family
DX: Z12.31 Encounter for screening mammogram for malignant neoplasm of breast (principal)
CPT/HCPCS: 77063; 77067

== ENCOUNTER 2022-10-31 09:53 | Day surgery (SDC) | payer BC, SELFPAY ==
[2022-10-08 10:14] VITALS: BMI 82.5
[2022-10-31 10:07] VITALS: BP 135/83; PULSE 81; RESP 18; TEMP 36.3; O2SAT 94
[2022-10-31 10:27] LABS: POC Glucose,Bedside 89 (70-110)
[2022-10-31 11:18] VITALS: O2SAT 94
--- NOTE | 2022-10-31 11:28 | HMH.SCOPE ---
Procedure: Date: 10/31/22 Patient Date of :: 1970 Procedure Performed:: EGD Indications:: GERD and intermittent dysphagia Performing Provider:: Quinn Stone MD Referring Provider:: Giulia Dunlap APRN Sedation:: See RN records Procedure:: The gastroscope was gently passed through the incisoral orifice into the oral cavity and under direct visualization the esophagus was intubated. The endoscope was passed down the esophagus, through the stomach, and into the duodenum. Color, texture, mucosa, and anatomy of the esophagus, stomach, and duodenum were carefully examined with the scope. Findings:: Oropharynx: normal Esophagus: normal. Biopsies obtained, empiric dilatation performed with 54F bougie dilatation EG Junction: intact at 40 cm Cardia: normal Fundus: normal Body: normal. Bilious fluid Antrum: normal Duodenal bulb: normal Duodenum (second and third portion): normal Recommendations:: Await pathology results Continue pantoprazole 40 mg once daily Consider barium esophagram with tablet if dysphagia symptom does not improve after esophageal dilatation Famotidine 20 mg 1-2 times per day as needed Complications:: None Estimated blood obtained (mL): 0
[2022-10-31 11:30] VITALS: BP 128/73; PULSE 87; RESP 17; TEMP 36.1; O2SAT 94
[2022-10-31 11:40] VITALS: BP 145/87; PULSE 89; RESP 16; O2SAT 98
[2022-10-31 11:51] VITALS: BP 155/70; PULSE 70; RESP 20; O2SAT 96
== END 2022-10-31 12:04 | disposition home or self-care (01) ==
PROVIDERS: PCP Nurse Practitioner Family; Visit Provider Internal Medicine
PROC: 0DJ08ZZ Inspection of Upper Intestinal Tract, Via Natural or Artificial Opening Endoscopic (ICD-10-PCS; CPT 43235; principal; 2022-10-31 11:00)
DX: K21.9 Gastro-esophageal reflux disease without esophagitis (principal); R13.10 Dysphagia, unspecified; E11.9 Type 2 diabetes mellitus without complications
CPT/HCPCS: 43248; 43239; 82962

== ENCOUNTER → 2022-11-05 10:58 | Outpatient (CLI) | payer BC, SELFPAY ==
[2022-11-05 12:22] LABS: Anion Gap 5.4 mEq/L (5-15); Blood Urea Nitrogen 14 mg/dl (7-17); Calcium 9.6 mg/dl (8.4-10.2); Carbon Dioxide 34 mmol/L (22.0-30.0); Chloride 101 mmol/L (98-107); Estimated Glomerular Filt Rate 58 ml/min (>60); GFR (African American) 71 ML/MIN (>60); Glucose 93 mg/dl (74-100); Potassium 4.4 mmoL/L (3.5-5.1); Sodium 136 mmol/L (136-145)
== END ==
PROVIDERS: PCP Nurse Practitioner Family; Visit Provider Nurse Practitioner Family
DX: R00.2 Palpitations (principal); I10 Essential (primary) hypertension; I20.9 Angina pectoris, unspecified; R60.0 Localized edema; R94.30 Abnormal result of cardiovascular function study, unspecified; R94.31 Abnormal electrocardiogram [ECG] [EKG]; Z82.49 Family history of ischemic heart disease and other diseases of the circulatory system
CPT/HCPCS: 36415; 80048

== ENCOUNTER → 2022-11-06 13:03 | Outpatient (CLI) | payer BC, SELFPAY ==
--- NOTE | 2022-11-06 13:04 | MR_ITS ---
FINAL REPORT CLINICAL HISTORY: ankle pain left ankle pain sx in 2019 FINDINGS: Multiplanar and multisequence imaging of the right ankle was obtained without intravenous contrast. BONES/JOINT: There is a surgical screw in the proximal 5th metatarsal. Bone marrow signal intensity is otherwise normal. There is no edema, contusion or pathologic marrow replacement. LIGAMENTS: The anterior talofibular ligament, posterior talofibular ligament and calcaneofibular ligament are intact. The tibiofibular ligaments are intact. The deltoid and spring ligaments are within normal limits. TENDONS: The Achilles tendon is normal in size and signal intensity. The medial tendons are within normal limits. The peroneus longus and brevis tendons are within normal limits. There is no evidence of peroneus brevis split tear. The extensor tendons are within normal limits. OTHER SOFT TISSUES: There is no joint effusion. Signal intensity within the sinus tarsi is preserved. The plantar fascia is normal in size and signal intensity. There are no additional areas of abnormal signal intensity. There are no masses or abnormal fluid collections. IMPRESSION: No acute abnormality. Reviewed, Interpreted and Dictated by Kathy Esqueda MD Transcribed by Melissa Mendoza Authenticated and [facility]
--- NOTE | 2022-11-06 13:04 | MR_ITS ---
FINAL REPORT TECHNIQUE: Multi planar MR imaging was performed through the foot. CLINICAL HISTORY: foot pain left foot pain on lateral side of foot sx in 2019 FINDINGS: Artifact is seen in the lateral midfoot and forefoot from surgical screw in the proximal 5th metatarsal. Marrow signal is otherwise unremarkable. The Lisfranc joint is intact. The Lisfranc ligament is intact. The flexor and extensor tendons to the toes are intact. The Achilles tendon is intact. The plantar fascia is normal. There is no acute soft tissue abnormality. IMPRESSION: No acute abnormality of the foot. Artifact along the lateral midfoot and forefoot from surgical screw in the proximal 5th metatarsal Reviewed, Interpreted and Dictated by Kathy Esqueda MD Transcribed by Melissa Mendoza Authenticated and . [facility]
== END ==
LOC: RAD 13:04
PROVIDERS: PCP Nurse Practitioner Family; Visit Provider Podiatrist
DX: G57.82 Other specified mononeuropathies of left lower limb (principal); S82.61XA Displaced fracture of lateral malleolus of right fibula, initial encounter for closed fracture; M25.371 Other instability, right ankle; M25.372 Other instability, left ankle; M79.672 Pain in left foot
CPT/HCPCS: 73718; 73721

== ENCOUNTER → 2022-11-09 10:02 | Outpatient (CLI) | payer BC, SELFPAY ==
[2022-11-09 10:28] LABS: Basophils # 0.1 K/mm3 (0-0.2); Basophils % 0.7 % (0.1-2.0); Eosinophils # 0.2 K/mm3 (0.0-0.4); Eosinophils % 1.7 % (0.1-12.0); Hemoglobin 13.1 g/dL (12.2-16.2); Lymphocytes % 24.1 % (10-50); Mean Corpuscular Hemoglobin 28.5 pg (27.0-31.2); Mean Corpuscular Volume 89.3 fl (81-99); Mean Platelet Volume 6.8 fl (7.4-10.4); Monocytes # 0.4 K/mm3 (0.1-1.0); Monocytes % 3.3 % (1.7-9.3); Neutrophils # 8.8 K/mm3 (1.8-7.8); Neutrophils % 70.2 % (37.0-80.0); Platelet Count 442 K/mm3 (142-424); Red Blood Count 4.59 M/mm3 (4.20-5.40); Red Cell Distribution Width 14.9 % (11.5-17.5); White Blood Count 12.6 K/mm3 (4.8-10.8)
[2022-11-09 10:50] LABS: Hemoglobin A1C 5.9 % (4.0-6.0)
[2022-11-09 11:16] LABS: Albumin Level 3.9 g/dl (3.5-5.0); Anion Gap 9.1 mEq/L (5-15); Blood Urea Nitrogen 19 mg/dl (7-17); Carbon Dioxide 29 mmol/L (22.0-30.0); Chloride 102 mmol/L (98-107); Estimated Glomerular Filt Rate 76 ml/min (>60); GFR (African American) 92 ML/MIN (>60); Glucose 131 mg/dl (74-100); Potassium 4.1 mmoL/L (3.5-5.1); Sodium 136 mmol/L (136-145)
== END ==
PROVIDERS: PCP Nurse Practitioner Family; Visit Provider Orthopaedic Surgery
DX: M25.552 Pain in left hip (principal)
CPT/HCPCS: 36415; 80048; 82040; 83036; 85025; C9803; U0003; U0005

== ENCOUNTER → 2022-12-12 13:01 | Outpatient (POV) | payer BC, SELFPAY ==
--- NOTE | 2022-12-12 13:16 | EXP.PAIN.OV ---
HPI Data of Consult Patient: new to practice Consult date: 12/12/22 Requesting Physician: Natalya Wilson APRN Primary Care Provider: Giulia Dunlap APRN Consult Narrative Reason for consult: Upper back/neck pain, cervical radiculopathy symptoms History of present illness: Ms. Matthews is a 52 year old female who presents today as a new patient. She is a referral from Lenny Castro's office. She states her pain is in her upper back/neck and radiates into her bilateral shoulders with significant numbness and tingling. She says this is a constant, achy sensation that is worse with increased activity. Patient does state that it goes down her right arm more prominent than the left. Patient denies any specific trauma or injury that led to her initial complaints. 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 She has had both her hips replaced with her left hip just 4 weeks ago. She does state that she was placed on Eliquis for surgery precautions however she is finishing this medication today. Dr. Delgado has stated that she is a nonsurgical candidate for a cervical fusion. Patient does state that her pain interferes with her ability to perform activities of daily living such as cooking and cleaning. Patient has frequent trouble with dropping items and has some difficulty with walking. Patient does use a walker to help ambulate since her recent hip arthroplasty. Patient was a previous patient at our clinic in the past. She did have previous injections done during this timeframe that did provide significant relief. She has had a lumbar fusion of L3-L4 and L4-L5 by Dr. Delgado in [place]. She is currently prescribed cyclobenzaprine 5 mg 3 times daily, meloxicam 7.5 mg daily. She has been on diclofenac in the past however she states she did noticed significant difference with this. She has been recently prescribed tramadol 50 mg 3 times a day and gabapentin 100 mg 3 times a day from outside providers. She states this has helped some however it just more so takes the edge off. Patient denies any side effects from these medications. She does state that she has tried [id number] Tylenol and ibuprofen along with heat and ice with no additional relief. She does state that ice seems to do better. Her Leno is [id number]. Its been reviewed and appropriate. CC: Natalya Wilson APRN [facility] Disclaimer: The information contained in this section may have been updated after the patient was seen, as this information can be updated by other users. Medical History Abnormal electrocardiogram [ECG] [EKG] Abnormal result of cardiovascular function study Back pain with history of spinal surgery Chest pain Edema of both lower extremities Elevated left ventricular end-diastolic pressure (LVEDP) Family history of ischemic heart disease (IHD) Newly diagnosed diabetes REINA (obstructive sleep apnea) Mild to moderate REINA diagnosed November 2020. CPAP with symptomatic improvement. Sleepiness, fatigue in the setting of poor compliance, sleep hygiene. Palpitations SOB (shortness of breath) on exertion Typical angina Surgical History History of partial hysterectomy History of tonsillectomy Hx of foot surgery left screw Hx of total hip arthroplasty right Family History Other Cancer Coronary artery disease Diabetes Family history of diabetes mellitus type II Family history of hyperlipidemia Family history of hypothyroidism Family history of stroke Heart attack Social History Smoking Status: Never smoker alcohol intake: never substance use type: denies use current occupational status: other Travel in the last 8 weeks: None household members: meraria
[2022-12-12 13:18] VITALS: BP 150/92; PULSE 112; RESP 20; O2SAT 96; BMI 39.2
== END ==
PROVIDERS: PCP Nurse Practitioner Family; Visit Provider Nurse Practitioner Family
DX: M50.10 Cervical disc disorder with radiculopathy, unspecified cervical region (principal); M51.36 Other intervertebral disc degeneration, lumbar region; M47.816 Spondylosis without myelopathy or radiculopathy, lumbar region; M79.601 Pain in right arm; M79.602 Pain in left arm; M48.02 Spinal stenosis, cervical region
CPT/HCPCS: 99202; G0463

== ENCOUNTER → 2022-12-17 10:13 | Outpatient (CLI) | payer BC, SELFPAY ==
--- NOTE | 2022-12-17 10:14 | NM_ITS ---
FINAL REPORT TECHNIQUE: 0.49 Millicuries of technetium 99m sulfur colloid was ingested with eggs, toast and water. CLINICAL HISTORY: vomiting undigested food 2 x a week 10:30am 0.49 [facility]ci tc sulfur colloid inj into 2 whole eggs, 2 pc of toast and water FINDINGS: GASTRIC EMPTYING SCAN Static images show normal emptying of the stomach into the small bowel. Based on the time activity curve, the estimated half-emptying time is 105 minutes. IMPRESSION: Gastric emptying time at the upper limits of normal. Reviewed, Interpreted and Dictated by Oc Sibley III, MD Transcribed by Lauro Waters Authenticated and [facility]
== END ==
PROVIDERS: PCP Nurse Practitioner Family; Visit Provider Nurse Practitioner
DX: R11.10 Vomiting, unspecified (principal)
CPT/HCPCS: 78264; A9541

== ENCOUNTER 2022-12-18 14:04 | Day surgery (SDC) | payer BC, SELFPAY ==
[2022-12-18 14:34] VITALS: BP 151/92; PULSE 100; RESP 18; TEMP 36.6; O2SAT 97; BMI 37.8
[2022-12-18 14:44] VITALS: BP 178/100; PULSE 90; RESP 18; O2SAT 98
--- NOTE | 2022-12-18 14:48 | P.PCN_ITS ---
Procedure Date: 12/18/22 Time: 14:45 Anesthesiologist:: Mello Manzo CRNA Complications:: None Pre-procedure Diagnosis:: Degenerative disc disease cervical spine multilevels. Cervical radiculopathy. Multilevel cervical disc bulge. Cervical spinal stenosis Post-procedure Diagnosis:: Same. Indications for Procedure:: Very pleasant 52-year-old female comes our clinic today for cervical epidural steroid injection C6-7 level. Patient complains of posterior cervical neck pain as well as right shoulder and arm radiculopathy. She rates her pain 7/10 Procedure Details:: Procedure:Cervical epidural steroid injection Informed consent was obtained and the risks and benefits of the procedure were explained to the patient. The patient was taken to the procedure room and noninvasive monitors placed, including noninvasive blood pressure cuff and pulse oximeter. The neck was prepped using Chloraprep as a cleansing solution. The C6- C7 interspace was viewed using fluroscopy. The skin and subcutaneous tissues were anesthetized using lidocaine 1.5% and a 25-gauge needle. After this an 18- gauge Touhy epidural needle was placed into the C6-C7 interspace under fluroscopy guidance and advanced using loss of resistance to air until the epidu ral space was encountered. After confirmation of needle placement in the epidural space using contrast dye, a solution containing normal saline, 2 mL and Depo-Medrol 80 mg was incrementally injected into the cervical epidural space.~ The patient tolerated the procedure well with no complications. The patient was observed in the Pain Clinic and then discharged home neurologically intact. Plan and Disposition:: Patient was discharged without incident.
[2022-12-18 14:49] VITALS: BP 151/90; PULSE 86; RESP 18; O2SAT 97
== END 2022-12-18 14:49 | disposition home or self-care (01) ==
PROVIDERS: PCP Nurse Practitioner Family; Visit Provider Nurse Anesthetist, Certified Registered
DX: M50.123 Cervical disc disorder at C6-C7 level with radiculopathy (principal); M48.02 Spinal stenosis, cervical region
CPT/HCPCS: 62321; J1040; Q9966

== ENCOUNTER → 2023-01-28 12:06 | Outpatient (POV) | payer BC, SELFPAY ==
--- NOTE | 2023-01-28 12:51 | EXP.PAIN.SOA ---
[facility] Pain Management SOAP Note Subjective:: Patient is a pleasant 52-year-old female who presents today for follow-up of cervical epidural steroid injection of C6-C7 on 12/18/2022. We are currently treating the patient for degenerative disc disease of cervical and lumbar spine multilevels with cervical radiculopathy symptoms, multilevel cervical disc bulge, cervical spinal stenosis, neck pain. Today she rates her pain a 7 out of 10. Patient denies any new trauma or injury. She states that she only got about 30% improvement following this injection and only lasting a couple of days. Patient does state today that her pain is still all in and around her neck with the right side being more prominent. Patient does describe this as an aching, throbbing sensation that is worse with increased activity. Patient also states that she continues to have chronic low back pain and has had previous back surgery in the past. Patient is currently prescribed cyclobenzaprine 5 mg 3 times a day, meloxicam 7.5 mg daily tramadol 50 mg 3 times a day and gabapentin 100 mg 3 times a day. Her Leno is [id number]. Its been reviewed and appropriate. Review of Systems: General: No recent weight changes, no fever, no sleep disturbances Respiratory: No cough, no shortness of air, no recurring pulmonary infections Cardiovascular/peripheral vascular: No chest pain, no palpitations, no edema, no shortness of breath Gastrointestinal: No new onset incontinence, normal bowel movements reported Genitourinary: No new onset incontinence Musculoskeletal: Neck pain, right shoulder pain Psychiatric: [Normal mood/affect] Neurological: [Denies weakness in extremities], [denies balance issues] Objective:: Physical Exam: General: Alert and oriented x3, no acute distress, pleasant and cooperative Lungs: Respirations even and unlabored, symmetrical chest expansion Eyes: PERRL Musculoskeletal: Flexion and extension of cervical [spine] somewhat guarded secondary to pain, [antalgic gait noted] point tenderness noted at bilateral cervical paraspinous, right trapezius and right thoracic paraspinous muscles Neurological: Speech clear, no gross sensory deficit Assessment:: Degenerative disc disease of cervical and lumbar spine multilevels with cervical and lumbar radiculopathy symptoms, multilevel cervical disc bulge, cervical spinal stenosis, neck pain, myofascial pain bilateral cervical paraspinous, right trapezius and right thoracic paraspinous muscles Plan:: Patient is experiencing significant pain in her neck with radiating symptoms into her right shoulder. Patient had limited range of motion of her cervical spine along with point tenderness noted at her bilateral cervical paraspinous, right trapezius and right thoracic paraspinous muscles. I have discussed with the patient that she may benefit from trigger point injections at these locations. Risk and benefits were discussed with the patient and she would like to proceed forward with this plan of care. I will also order the patient a compounding cream and muscle relaxer tizanidine 4 mg at bedtime and provide a 2-week supply of this medication. Patient will be scheduled for trigger point injections of her bilateral cervical paraspinous, right trapezius and right thoracic paraspinous muscles. Patient has been instructed to contact the clinic with any concerns before the next appointment. Dr. Barragan has reviewed this note and agrees with this plan of care. This note was dictated using voice recognition software and make contain errors or omissions. [facility] Disclaimer: The information contained in this section may have been updated after the patient was seen, as this information can be updated by other users. Medical History Abnormal electrocardiogram [ECG] [EKG] Abnormal result of cardiovascular function study Back pain with history of spinal surgery Chest pain Edema of both lower extremities [place]
[2023-01-28 13:01] VITALS: BP 130/83; PULSE 95; RESP 18; O2SAT 97; BMI 37.3
== END | disposition home or self-care (01) ==
PROVIDERS: Visit Provider Nurse Practitioner Family
DX: M50.123 Cervical disc disorder at C6-C7 level with radiculopathy (principal); M48.02 Spinal stenosis, cervical region; M79.18 Myalgia, other site
CPT/HCPCS: 99212; G0463

== ENCOUNTER 2023-02-12 11:47 | Day surgery (SDC) | payer BC, SELFPAY ==
[2023-02-12 11:54] VITALS: BP 122/70; PULSE 74; RESP 18; TEMP 36.4; O2SAT 97; BMI 36.8
[2023-02-12 12:08] VITALS: BP 108/69; PULSE 66; RESP 18; O2SAT 97
--- NOTE | 2023-02-12 12:12 | EXP.PAIN.PRO ---
Procedure Date: 02/12/23 Time: 12:00 Anesthesiologist:: Mello Manzo CRNA Complications:: None Pre-procedure Diagnosis:: Myofascial pain right cervical paraspinous muscle. Right trapezius muscle. Right thoracic paraspinous muscle. Post-procedure Diagnosis:: Same. Indications for Procedure:: Patient is a pleasant 52-year-old female that comes our clinic today for trigger point injections in the right cervical paraspinous muscles, right thoracic paraspinous muscle, right trapezius muscle. Patient scribes tightness in the right posterior cervical spine as well as right trapezius muscle. She describes the pain as radiating, dull, aching, burning. Also complains of right thoracic paraspinous muscle pain. Procedure Details:: Informed consent was obtained and the risk and benefits of the procedure were explained to the patient. The patient was taken to the procedure room where noninvasive monitoring was placed including a noninvasive blood pressure cuff and a pulse oximeter. Neck and upper trapezius on the right side were prepped with ChloraPrep as a cleansing solution. Trigger points were palpated and marked. Each of these trigger points were injected with bupivacaine 0.25% 3 mL and Depo-Medrol 20 mg. A total of 80 mg Depo-Medrol was used for each trigger point of the right cervical paraspinous and right upper trapezius muscles. Needle was withdrawn and sterile bandages placed over the injection sites. Patient tolerated the procedure well with no complications. Plan and Disposition:: Patient discussed with me in detail regarding lumbar back pain with flexion, extension, left and right rotation. She rates pain 10/10. Patient reports she is unable to flex at the waist without extreme pain in the low back. Extension is extremely painful as well. I discussed with her lumbar facet blocks/medial branch blocks. Patient is interested in this injection. She will discuss at her follow-up visit. Patient was discharged without incident.
== END 2023-02-12 12:08 | disposition home or self-care (01) ==
LOC: SC.PAINP 11:47
PROVIDERS: PCP Nurse Practitioner Family; Visit Provider Nurse Anesthetist, Certified Registered
DX: M79.18 Myalgia, other site (principal)
CPT/HCPCS: 20552; J1040

== ENCOUNTER → 2023-03-06 14:18 | Outpatient (POV) | payer BC, SELFPAY ==
[2023-03-06 15:51] VITALS: BP 147/97; PULSE 91; RESP 18; O2SAT 96; BMI 36.8
--- NOTE | 2023-03-06 15:52 | EXP.PAIN.SOA ---
[facility] Pain Management SOAP Note Subjective:: Patient is a pleasant 52-year-old female who presents today for follow-up of trigger point injections of her right cervical paraspinous and right trapezius muscles along with right thoracic muscles on 02/12/2023. We are currently treating the patient for degenerative disc disease of cervical and lumbar spine multilevels with cervical and lumbar radiculopathy symptoms, myofascial pain, cervical spinal stenosis, neck pain, cervical disc bulges multilevel. Today she rates her pain a 8 out of 10. Patient states that she did not get any additional improvement following the trigger point injections. Patient denies any new trauma or injury. She denies any change to location or type of pain she experiences. Patient states she continues to have neck pain with radiating symptoms into her bilateral shoulders. She does state that she is having more limited range of motion with her right being the worst shoulder. She does describe this as an aching, throbbing sensation that is worse with increased activity. It does interfere with her ability perform activities of daily living such as cooking and cleaning. Patient is currently prescribed cyclobenzaprine 5 mg 3 times a day, meloxicam 7.5 mg daily, tramadol 50 mg 3 times a day and gabapentin 100 mg 3 times a day from an outside provider. Patient is also prescribed compounding cream from our office. Patient denies any side effects from these medications. She does state that in the past she has gone to neurosurgeon Dr. Delgado who did state that she had stenosis in her cervical spine however he was not recommending surgery intervention at that time and wanted to try more conservative therapies. Patient's Leno is [phone]. Its been reviewed and appropriate. Review of Systems: General: No recent weight changes, no fever, no sleep disturbances Respiratory: No cough, no shortness of air, no recurring pulmonary infections Cardiovascular/peripheral vascular: No chest pain, no palpitations, no edema, no shortness of breath Gastrointestinal: No new onset incontinence, normal bowel movements reported Genitourinary: No new onset incontinence Musculoskeletal: Bilateral shoulder pain Psychiatric: [Normal mood/affect] Neurological: [Denies weakness in extremities], [denies balance issues] Objective:: Physical Exam: General: Alert and oriented x3, no acute distress, pleasant and cooperative Lungs: Respirations even and unlabored, symmetrical chest expansion Eyes: PERRL Musculoskeletal: Flexion and extension of bilateral shoulders somewhat guarded secondary to pain, [antalgic gait noted] Neurological: Speech clear, no gross sensory deficit Assessment:: Degenerative disc disease of cervical and lumbar spine with cervical and lumbar radiculopathy symptoms, myofascial pain, cervical spinal stenosis, neck pain, cervical disc bulges, bilateral shoulder pain/osteoarthritis Plan:: Patient is experiencing worsening pain in her bilateral shoulders with limited range of motion. I have discussed with the patient that she may benefit from intra-articular shoulder injections. Risk and benefits were discussed with the patient and she would like to proceed forward with this plan of care. I have also discussed with the patient that in the future she may benefit from intrathecal pain pump trial due to her chronic pain symptoms. Risk and benefits and educational handouts were given during today's visit. She would also like to proceed forward with this plan of care. I will order a psych eval during today's visit and if she is deemed an appropriate candidate we will proceed forward with a pain pump trial in the future. Patient will be scheduled for bilateral shoulder intra-articular injections. Patient has been instructed to contact the clinic with any concerns before the next appointment. Dr. Barragan has reviewed this note and agrees with this plan of care. This note was dictated using voice recognition software and
== END ==
PROVIDERS: Visit Provider Nurse Practitioner Family
DX: M50.10 Cervical disc disorder with radiculopathy, unspecified cervical region (principal); M48.02 Spinal stenosis, cervical region; M51.16 Intervertebral disc disorders with radiculopathy, lumbar region; M79.10 Myalgia, unspecified site; M19.011 Primary osteoarthritis, right shoulder; M19.012 Primary osteoarthritis, left shoulder
CPT/HCPCS: 99212; G0463

== ENCOUNTER → 2023-03-11 16:15 | Outpatient (CLI) | payer BC, SELFPAY ==
--- NOTE | 2023-03-11 16:43 | XR_ITS ---
PROCEDURE INFORMATION: Exam: XR Chest Exam date and time: 03/11/2023 4:47 PM Age: 52 years old Clinical indication: Other: Pain of bilateral lower extremity; Additional info: Paresthesia/pain of b/l le TECHNIQUE: Imaging protocol: Radiologic exam of the chest. Views: 2 views. COMPARISON: CR XR CHEST 2V 09/14/2019 4:54 PM FINDINGS: Lungs: No consolidation. Pulmonary vessels do not appear congested. Chronic granulomatous changes in the lower right lung. Increased hazy opacity at the left cardiophrenic angle compared with 09/14/2019 which is probably a prominent pericardial fat pad rather than lingular airspace disease. There is mild linear subsegmental atelectasis projected over the mid to lower left lung field on the frontal view, not clearly delineated on the lateral view. Normal lung volumes. Pleural spaces: Unremarkable. No significant pleural effusion. No pneumothorax. Heart/Mediastinum: Cardiac silhouette appears slightly enlarged. Bones/joints: There are spinal degenerative changes, with multilevel disc narrrowing and spondylosis. There is lumbar metallic posterior fusion hardware which is incompletely imaged on this exam. IMPRESSION: 1. No acute findings. 2. Chronic and non-emergency findings, as above.
[2023-03-11 16:52] LABS: Basophils # 0.1 K/mm3 (0-0.2); Basophils % 0.5 % (0.1-2.0); Eosinophils # 0.3 K/mm3 (0.0-0.4); Eosinophils % 3.3 % (0.1-12.0); Hematocrit 39.8 % (37.0-47.0); Hemoglobin 12.7 g/dL (12.2-16.2); Lymphocytes # 3.6 K/mm3 (0.7-4.5); Mean Corpuscular HGB Conc 31.8 g/dL (31.8-35.4); Mean Corpuscular Hemoglobin 27.4 pg (27.0-31.2); Monocytes # 0.4 K/mm3 (0.1-1.0); Neutrophils # 6.1 K/mm3 (1.8-7.8); Neutrophils % 58.2 % (37.0-80.0); Platelet Count 497 K/mm3 (142-424); Red Blood Count 4.62 M/mm3 (4.20-5.40); Red Cell Distribution Width 15.1 % (11.5-17.5); White Blood Count 10.5 K/mm3 (4.8-10.8)
[2023-03-11 17:00] LABS: Hemoglobin A1C 6.6 % (4.0-6.0)
--- NOTE | 2023-03-11 17:00 | ECG_ITS ---
APPROVED REPORT Exam: Resting ECG HR:77 bpm ECG Measurements Heart Rate 77 AXES IL 161 P 45 QRSd 151 QRS -46 QT 394 T 87 QTc 426 Conclusion SINUS RHYTHM LEFT AXIS DEVIATION [QRS AXIS < -30] LEFT BUNDLE BRANCH BLOCK [120+ ms QRS DURATION, 80+ ms Q/S IN V1/V2, 85+ ms R IN I/aVL/V5/V6] ABNORMAL ECG UNCONFIRMED REPORT Electronically signed by : Giovanny Fernando MD 03/12/2023 20:29:12
[2023-03-11 17:12] LABS: Chloride 104 mmol/L (98-107); Potassium 4.1 mmoL/L (3.5-5.1); Sodium 140 mmol/L (136-145)
[2023-03-11 17:15] LABS: Alanine Aminotransferase 30 U/L (12-78); Albumin Level 3.9 g/dl (3.5-5.0); Albumin/Globulin Ratio 1.3 (1.1-1.8); Alkaline Phosphatase 171 U/L (38-126); Anion Gap 11.1 mEq/L (5-15); Aspartate Amino Transferase 27 U/L (14-36); Bilirubin,Total < 0.1 mg/dl (0.2-1.3); Blood Urea Nitrogen 13 mg/dl (7-17); Calcium 9.3 mg/dl (8.4-10.2); Carbon Dioxide 29 mmol/L (22.0-30.0); Estimated Glomerular Filt Rate 105 ml/min (>60); GFR (African American) 128 ML/MIN (>60); Globulin 2.9 g/dL (1.3-3.2); Glucose 99 mg/dl (74-100); Total Protein,Serum 6.8 g/dl (6.3-8.2)
[2023-03-11 17:35] LABS: Erythrocyte Sedimentation Rate 44 mm/hr (0-30)
[2023-03-18 21:08] LABS: 1,25 Dihydroxy Vitamin D 62 pg/mL (.); 1,25-Dihydroxy, Vitamin D-2 <10 pg/mL (.); 1,25-Dihydroxy, Vitamin D-3 61 pg/mL (.)
[2023-03-25 23:40] LABS: Cotinine 201.7; Nicotine 10.4
== END ==
PROVIDERS: PCP Nurse Practitioner Family; Visit Provider Podiatrist
DX: G57.82 Other specified mononeuropathies of left lower limb (principal); L84 Corns and callosities; M19.071 Primary osteoarthritis, right ankle and foot; M19.072 Primary osteoarthritis, left ankle and foot; M79.671 Pain in right foot; M79.672 Pain in left foot; R20.2 Paresthesia of skin; E11.9 Type 2 diabetes mellitus without complications; Z79.899 Other long term (current) drug therapy
CPT/HCPCS: 36415; 71046; 80053; 80323; 82652; 83036; 85025; 85651; 86140; 93005

== ENCOUNTER 2023-03-21 11:30 | Day surgery (SDC) | payer BC, SELFPAY ==
[2023-03-21] VITALS (10 sets, daily range): BP systolic 110–153; BP diastolic 66–84; PULSE 83–100; RESP 15–20; TEMP 36.1–43; O2SAT 95–97; BMI 37.8
[2023-03-21 12:23] LABS: POC Glucose,Bedside 114 (70-110)
--- NOTE | 2023-03-21 12:38 | EXP.ANES.CKL ---
[facility] Disclaimer: The information contained in this section may have been updated after the patient was seen, as this information can be updated by other users. Medical History Abnormal electrocardiogram [ECG] [EKG] Abnormal result of cardiovascular function study Back pain with history of spinal surgery Chest pain Edema of both lower extremities Elevated left ventricular end-diastolic pressure (LVEDP) Family history of ischemic heart disease (IHD) Newly diagnosed diabetes REINA (obstructive sleep apnea) Mild to moderate REINA diagnosed November 2020. CPAP with symptomatic improvement. Sleepiness, fatigue in the setting of poor compliance, sleep hygiene. Palpitations SOB (shortness of breath) on exertion Typical angina Surgical History History of partial hysterectomy History of tonsillectomy Hx of foot surgery left screw Hx of total hip arthroplasty right Family History Other Cancer Coronary artery disease Diabetes Family history of diabetes mellitus type II Family history of hyperlipidemia Family history of hypothyroidism Family history of stroke Heart attack Social History (Updated 03/21/23 @ 11:50 by Traci Montelongo RN) Smoking Status: Never smoker alcohol intake: never substance use type: denies use current occupational status: employed Travel in the last 8 weeks: None household members: significant other housing: house lives independently: Yes marital status: single education level: high school service: No 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 [facility] Anesthesia Checklist Patient Identification Patient Identification: Arm Band Structural Data Admitted From: Home Planned Operative Procedure/s: Left foot hardware removal, ankle stabilization Consent for Planned Operative Procedure(s) Verified: Yes Verified Documents: Surgical Consent and History and Physical NPO Status Verified Time NPO: 00:00 Additional verifications Anesthesia Reactions: No Hx Blood Transfusions: No Blood Transfusion Reaction: No Airway Assessment C-Spine Mobility Assessed: Yes TMJ Mobility Assessed: Yes Dentition: Dentures-good fit (removed) Neurological Assessment Level of Consciousness: Awake and Alert Anesthesia Plan Anesthesia Risk discussed: Yes Anesthesia Plan: Verified ASA Class: III Anesthesia Type: General w/block (Left Popliteal/Adductor Canal. Risks/benefits explained. Pt verbalized understanding)
--- NOTE | 2023-03-21 14:17 | XR_ITS ---
FINAL REPORT CLINICAL HISTORY: HARDWARE REMOVAL, ANKLE STABILIZATION fluoro time: .18 FINDINGS: FLUOROSCOPY LESS THAN 1 HOUR HISTORY: Fluoroscopy guided injection. FINDINGS: Fluoroscopic guidance was provided for hardware removal. 3 spot films were obtained. 18 seconds of fluoroscopy time were used. IMPRESSION: As above. Reviewed, Interpreted and Dictated by Oc Sibley III, MD Transcribed by Ny Escalante Authenticated and [facility]
--- NOTE | 2023-03-21 14:38 | EXP.OP.NOTE ---
Date of procedure: 03/21/23 Pre-op Diagnosis:: Left retained orthopedic hardware Painful hardware Left ankle instability Left peroneal tenosynovitis Post-op Diagnosis:: Same Procedure performed:: Left modified Brostr?m lateral ankle ligament stabilization Left peroneal tenosynovectomy Left foot hardware removal Left foot bone biopsy Application of injection graft (Viaflow) Surgeon:: Carlie Amos DPM CASHIER:: Other (Satish Kaba) Anesthesia: regional (Left pop block) and LMA Estimated blood loss (mL): 20 Clinical Note:: Patient is a 52-year-old diabetic female who presents with continued pain to the left foot and ankle. She had left fifth metatarsal ORIF surgery in the past 09/15/2019. She reports pain to the hardware site with progressive peroneal tendinitis and ankle instability. The patient has tried modification of shoe gear, taping, strapping, inserts, ice, elevation, and NSAIDs, ankle bracing, injections and physical therapy. After a long discussion with the patient in regards to the conservative versus surgical treatment for the arthritic deformity, the patient has elected to proceed with surgery because they have failed conservative treatment and continue to have pain and worsening symptoms affecting daily activities. The patient has been instructed on the planned procedure, all risk versus benefits of the procedure discussed. These include but are not limited to: bleeding, infection, nerve and blood vessel damage, need for further surgery, delay in healing of soft tissue or bone, failure of bones to heal, non-union, mal-union, failure of the implant, prolonged pain and recovery, prolonged/permanent pain/edema, CRPS/RSD, DVT/PE and anesthetic complications. No guarantees were given. All questions fully answered. The patient verbalized understanding and agreed to proceed with surgery. Written consent was obtained. Operative findings:: Left 5th metatarsal Cason screw retained. Removed without complication. Cason fracture healed. No evidence of bone or deep soft tissue infection. Mild increase to anterior ankle drawer. ATFL visible but attenuated. Peroneal tendons intact with no evidence of tear or rupture. Post repair: negative anterior ankle drawer and talar tilt. Operative note:: On this date and time patient was deemed an appropriate surgical candidate. With informed consent signed, the patient was taken to the operating theater after left regional nerve block by anesthesia. The patient was positioned supine. General anesthesia was induced. Tourniquet was applied to the left mid-calf. IV Ancef, 1g Cefepime given. Left 5th Metatarsal Deep Hardware Removal: The left lower extremity was prepped and draped in normal sterile fashion. The tourniquet was inflated at 225mmHg. Attention was directed to the left fifth metatarsal, where a dorsal linear incision was mapped out over the 5th met base. Dissection was carried thru skin and sub q tissue, with care to maintain surgical hemostasis. The hardware was visualized. Cason fracture screw was successfully removed from the bone. No evidence of hardware failure. Intraoperative fluoroscopy was used to visualize screw and the fracture which appeared to be healed. Left Foot Bone Biopsy: Fifth met bone hard and white. There were no signs of infection noted. The soft tissue appeared healthy with no eid or necrotic tissue noted. There was no purulence or malodor appreciated. No palpable lymph nodes. The was flushed with copious amounts of sterile saline. The deep and subcutaneous tissue layer was repaired with 3-0 Vicryl and 3-0 Nylon was used to close skin in an mattress suture fashion. Left Peroneal Tenosynectomy: Incision made under distal fibula. Peroneal tendons idenitifed and intact with no tear or rupture. Synovitis noted. 15' blade and forceps used to debride snyovitic tissue. Wound flushed with saline. Left modified Brostr?m lateral ankle ligament stabilization: Attention directed to ATFL
--- NOTE | 2023-03-21 14:47 | EXP.ANES.I ---
[facility] Anesthesia Record Part I Anesthesia Record I Intake, IV Amount: 1,000 Estimated blood loss (mL): 10 Urine output (mL): 0 Blood Products used (#): none Blood Pressure: 153/82 SaO2: 95 Pulse Rate: 100 Respiratory Rate: 20 Temperature: 97.4 F Patient is:: Drowsy and Stable Stable to PACU at:: 14:41
[2023-03-21 14:52] LABS: POC Glucose,Bedside 119 (70-110)
--- NOTE | 2023-03-21 15:00 | XR_ITS ---
FINAL REPORT CLINICAL HISTORY: Hardware removal. post op images COMPARISON: 09/27/2022 FINDINGS: LEFT FOOT SERIES Three views of the left foot were obtained. There is a subacute fracture of the mid fifth metatarsal. There is no acute fracture or dislocation. The joint spaces are preserved. There is no soft tissue abnormality. The screws been removed from the fifth metatarsal. IMPRESSION: No acute bony abnormality. Subacute fracture of the mid fifth metatarsal. Reviewed, Interpreted and Dictated by Oc Sibley III, MD Transcribed by Danielle Sandoval Authenticated and [facility]
--- NOTE | 2023-03-21 15:00 | XR_ITS ---
FINAL REPORT CLINICAL HISTORY: Ankle stab, post op images FINDINGS: LEFT ANKLE SERIES Three views of the left ankle were obtained. There is no acute fracture or dislocation. The joint spaces are preserved. There is no soft tissue abnormality. A splint is present, which obscures some of the detail. IMPRESSION: No acute abnormality. Reviewed, Interpreted and Dictated by Oc Sibley III, MD Transcribed by Danielle Sandoval Authenticated and [facility]
--- NOTE | 2023-03-22 14:25 | P.PNANES_ITS ---
[facility] Anesthesia Record Part II Anesthesia Record Part II Discharge Time: 15:11 Destination: Surgical Day Care (OP Surgery) PACU nurse assessment reviewed?: Yes Patient Condition:: Good Anesthesia Complications:: None Swallowing reflex intact?: Yes Cyanosis?: No Blood Pressure: 134/78 Pulse Rate: 89 Temperature: 97.5 F Mental Status: Alert & Oriented Pain level:: 0 Nausea and/or vomitting:: None Intake, IV Amount: 0
[2023-03-22 14:26] VITALS: BP 134/78; PULSE 89; TEMP 36.4
== END 2023-03-21 15:48 | disposition home or self-care (01) ==
PROVIDERS: PCP Nurse Practitioner Family; Visit Provider Podiatrist
PROC: (CPT 20240; principal; 2023-03-21 13:00)
DX: T84.84XA Pain due to internal orthopedic prosthetic devices, implants and grafts, initial encounter (principal); M25.372 Other instability, left ankle; M65.9 Synovitis and tenosynovitis, unspecified; Z79.899 Other long term (current) drug therapy; Z79.01 Long term (current) use of anticoagulants; E11.9 Type 2 diabetes mellitus without complications; M76.72 Peroneal tendinitis, left leg; M19.072 Primary osteoarthritis, left ankle and foot
CPT/HCPCS: 20240; 28086; 27658; 20680; 73610; 73620; 73630; 82962; 87070; 87205; 96374; C1762; J0692; J2405

== ENCOUNTER 2023-03-26 09:13 | Day surgery (SDC) | payer BC, SELFPAY ==
[2023-03-26 09:28] VITALS: BP 121/74; PULSE 98; RESP 18; TEMP 36.1; O2SAT 100; BMI 36.6
[2023-03-26 09:36] VITALS: BP 126/68; PULSE 70; RESP 18; O2SAT 98
[2023-03-26 09:37] VITALS: BP 126/68; PULSE 70; RESP 18; O2SAT 98
[2023-03-26 09:42] VITALS: BP 120/76; PULSE 67; RESP 18; O2SAT 100
--- NOTE | 2023-03-26 09:42 | P.PCN_ITS ---
Procedure Date: 03/26/23 Time: 09:37 Anesthesiologist:: Mello Manzo CRNA Complications:: None Pre-procedure Diagnosis:: Arthritis bilateral shoulders. Chronic bilateral shoulder pain. Post-procedure Diagnosis:: Same. Indications for Procedure:: Very pleasant 52-year-old female that comes our clinic today for bilateral intra-articular shoulder injections. The pain is constant, dull, aching. Right greater than left. Patient has 5/5 strength bilateral arms. However, patient has limited range of motion secondary to pain bilaterally. She rates her pain 8/10. Procedure Details:: Procedure Details: Bilateral shoulder intra-articular injection Informed consent was obtained risk and benefits of the procedure were explained to the patient. Patient was taken to the procedure room. The bilateral shoulder was prepped using ChloraPrep. A 25-gauge needle was used first anteriorly, laterally, and then posteriorly to inject 10 mL bupivacaine 0.25% and Depo- Medrol 40 mg. Patient tolerated procedure well with no complications. Plan and Disposition:: Patient was discharged without incident.
== END 2023-03-26 09:42 | disposition home or self-care (01) ==
PROVIDERS: PCP Nurse Practitioner Family; Visit Provider Nurse Anesthetist, Certified Registered
DX: M19.011 Primary osteoarthritis, right shoulder (principal); M19.012 Primary osteoarthritis, left shoulder; M25.511 Pain in right shoulder; M25.512 Pain in left shoulder; G89.29 Other chronic pain
CPT/HCPCS: 20610; J1040

== ENCOUNTER → 2023-03-28 09:44 | Outpatient (CLI) | payer BC, SELFPAY ==
[2023-03-28 10:46] LABS: Anion Gap 10.5 mEq/L (5-15); Blood Urea Nitrogen 18 mg/dl (7-17); Calcium 9.5 mg/dl (8.4-10.2); Carbon Dioxide 29 mmol/L (22.0-30.0); Chloride 106 mmol/L (98-107); Estimated Glomerular Filt Rate 105 ml/min (>60); GFR (African American) 128 ML/MIN (>60); Glucose 112 mg/dl (74-100); Potassium 4.5 mmoL/L (3.5-5.1); Sodium 141 mmol/L (136-145)
[2023-03-28 16:23] LABS: Basophils # 0.1 K/mm3 (0-0.2); Basophils % 0.4 % (0.1-2.0); Eosinophils # 0.3 K/mm3 (0.0-0.4); Eosinophils % 1.9 % (0.1-12.0); Hematocrit 37.6 % (37.0-47.0); Hemoglobin 11.4 g/dL (12.2-16.2); Lymphocytes # 3.4 K/mm3 (0.7-4.5); Lymphocytes % 21.7 % (10-50); Mean Corpuscular HGB Conc 30.2 g/dL (31.8-35.4); Mean Corpuscular Hemoglobin 26.8 pg (27.0-31.2); Mean Corpuscular Volume 88.7 fl (81-99); Monocytes # 0.6 K/mm3 (0.1-1.0); Monocytes % 3.8 % (1.7-9.3); Neutrophils # 11.2 K/mm3 (1.8-7.8); Neutrophils % 72.2 % (37.0-80.0); Platelet Count 496 K/mm3 (142-424); Red Blood Count 4.24 M/mm3 (4.20-5.40); White Blood Count 15.5 K/mm3 (4.8-10.8)
[2023-03-28 16:27] LABS: MANUAL DIFFERENTIAL MANUAL DIFFERENTIAL (MANUAL DIFF)
[2023-03-28 18:16] LABS: Lymphocytes % 15 % (10-50); Monocytes % 6 % (2-9); Neutrophils % 79 % (42-76); Total Cells Counted 100
[2023-03-28 18:19] LABS: Platelet Estimate Slight Increase; RBC Morphology Normal
== END ==
PROVIDERS: PCP Nurse Practitioner Family; Visit Provider Nurse Practitioner Family
DX: D72.829 Elevated white blood cell count, unspecified (principal)
CPT/HCPCS: 36415; 80048; 85007; 85025

== ENCOUNTER → 2023-04-05 14:49 | Outpatient (CLI) | payer BC, SELFPAY | PROVIDERS: PCP Nurse Practitioner Family; Visit Provider Podiatrist | DX: M25.571 Pain in right ankle and joints of right foot (principal) ==

== ENCOUNTER → 2023-04-10 10:06 | Outpatient (POV) | payer BC, SELFPAY ==
--- NOTE | 2023-04-10 10:17 | EXP.PAIN.SOA ---
[facility] Pain Management SOAP Note Subjective:: Patient is a pleasant 52-year-old female who presents today for follow-up of bilateral intra-articular shoulder injections on 03/26/2023. We are currently treating the patient for degenerative disc disease of cervical and lumbar spine multilevels with cervical and lumbar radiculopathy symptoms, myofascial pain, cervical spinal stenosis, neck pain, cervical disc bulges multilevel. Today she rates her pain a 9 out of 10. She denies any new trauma or injury. She denies any change to location or type of pain she experiences. She does state that the injections did provide 1 week of improvement of approximately .she does state today that she is back to her baseline and that her left shoulder feels worse. She does state that her right is a little bit more tolerable at this time. She does describe this as an aching, throbbing sensation that is worse with increased activity. It does interfere with her ability perform activities of daily living such as cooking and cleaning. She states it causes severe difficulty with certain range of motion. Patient was previously submitted for a psych eval for possible intrathecal pain pump trial in the future and she does state today that she did complete this and was deemed an appropriate candidate. She would like to proceed forward with the trial for her chronic low back pain. Patient is currently prescribed cyclobenzaprine 5 mg 3 times a day, meloxicam 7.5 mg daily, tramadol 50 mg 3 times a day and gabapentin 100 mg 3 times a day from an outside provider. Patient is also prescribed compounding cream from our office. Patient's Leno is [id number]. Its been reviewed and appropriate. Review of Systems: General: No recent weight changes, no fever, no sleep disturbances Respiratory: No cough, no shortness of air, no recurring pulmonary infections Cardiovascular/peripheral vascular: No chest pain, no palpitations, no edema, no shortness of breath Gastrointestinal: No new onset incontinence, normal bowel movements reported Genitourinary: No new onset incontinence Musculoskeletal: Left shoulder pain, chronic low back pain Psychiatric: [Normal mood/affect] Neurological: [Denies weakness in extremities], [denies balance issues] Objective:: Physical Exam: General: Alert and oriented x3, no acute distress, pleasant and cooperative Lungs: Respirations even and unlabored, symmetrical chest expansion Eyes: PERRL Musculoskeletal: Flexion and extension of left shoulder, lumbar spine somewhat guarded secondary to pain, [antalgic gait noted] Neurological: Speech clear, no gross sensory deficit Assessment:: degenerative disc disease of cervical and lumbar spine multilevels with cervical and lumbar radiculopathy symptoms, myofascial pain, cervical spinal stenosis, neck pain, cervical disc bulges multilevel, bilateral shoulder pain Plan:: Patient is experiencing significant pain in her left shoulder with limited range of motion. I have discussed with the patient that she may benefit from a left suprascapular nerve block. Risk and benefits were discussed with the patient and she would like to proceed forward with this plan of care. I have also counseled the patient that since she was deemed an appropriate candidate for the intrathecal pain pump trial we will proceed forward with this option for her chronic low back pain. Patient has tried and failed conservative therapy such as oral medication, heat and ice, topicals, physical therapy, at home exercising and stretching for longer than 6 weeks. Patient will be submitted for a left suprascapular nerve block as well as a intrathecal pain pump trial. Patient has been instructed to contact the clinic with any concerns before the next appointment. Dr. Barragan has reviewed this note and agrees with this plan of care. This note was dictated using voice recognition software and make contain errors or omissions. [facility] Disclaimer: The information contained in
[2023-04-10 12:54] VITALS: BP 128/92; PULSE 84; RESP 18; O2SAT 96; BMI 36.8
== END | disposition home or self-care (01) ==
PROVIDERS: Visit Provider Nurse Practitioner Family
DX: M50.10 Cervical disc disorder with radiculopathy, unspecified cervical region (principal); M51.16 Intervertebral disc disorders with radiculopathy, lumbar region; M79.10 Myalgia, unspecified site; M48.02 Spinal stenosis, cervical region; M25.511 Pain in right shoulder; M25.512 Pain in left shoulder
CPT/HCPCS: 99212; G0463

== ENCOUNTER 2023-04-23 07:58 | Day surgery (SDC) | payer BC, SELFPAY ==
[2023-04-23 08:29] VITALS: BP 139/73; PULSE 84; RESP 18; TEMP 36.7; O2SAT 98; BMI 36.6
[2023-04-23 08:54] VITALS: BP 149/97; PULSE 73; RESP 18; O2SAT 96
[2023-04-23 08:56] VITALS: BP 136/85; PULSE 67; RESP 18; O2SAT 98
[2023-04-23 08:57] VITALS: BP 149/97; PULSE 73; RESP 18; O2SAT 97
--- NOTE | 2023-04-23 08:58 | P.PCN_ITS ---
Procedure Date: 04/23/23 Time: 08:30 Anesthesiologist:: Mello Manzo CRNA Complications:: None Pre-procedure Diagnosis:: Chronic left shoulder pain. Post-procedure Diagnosis:: Same. Indications for Procedure:: Patient is a very pleasant 52-year-old female comes our clinic today for left gallardo prascapular nerve block. Patient had right-sided suprascapular nerve block 2 months ago. She reports 1 week of relief. She has similar pain in the left shoulder. She describes as constant, dull, aching. Patient also has multilevel disc bulge cervical spine. Cervical stenosis. Spinal surgery consultation recommended no surgery. I discussed in detail with the patient regarding potential need for cervical epidural steroid injection. Answered her questions. We will proceed with a left suprascapular nerve block today. She rates her pain 7/10 Procedure Details:: Details of the procedure explained to the patient. The patient taken procedure room placed in sitting position. The area of the left scapula was cleansed using chlorhexidine as a cleansing solution. The left scapula was palpated. Marker was placed on the superior lateral border. The skin and subcutaneous tissue was anesthetized using 1% lidocaine 25-gauge needle. At this time an inch and a half 25-gauge needle was used to access the outer one third of the superior margin of the scapula. After negative aspiration 10 cc of a solution containing 0.25% Marcaine +1% lidocaine and 40 mg of Depo-Medrol was injected. Patient tolerated procedure without difficulty. There are no complications. Plan and Disposition:: Patient was discharged without incident.
== END 2023-04-23 08:56 | disposition home or self-care (01) ==
PROVIDERS: PCP Nurse Practitioner Family; Visit Provider Nurse Anesthetist, Certified Registered
DX: M25.512 Pain in left shoulder (principal); G89.29 Other chronic pain
CPT/HCPCS: 64418; J1040

== ENCOUNTER → 2023-05-03 09:08 | Outpatient (CLI) | payer BC, SELFPAY ==
--- NOTE | 2023-05-03 09:08 | MR_ITS ---
FINAL REPORT CLINICAL HISTORY: right ankle pain COMPARISON: None FINDINGS: Multiplanar MR imaging of the right ankle was performed without contrast. The bony structures are intact without evidence of fracture, bone bruise or marrow edema. No osteochondral lesion is identified. The ligaments are intact without evidence of injury. The Achilles tendon is intact. The flexor and extensor tendons are intact. The plantar fascia is intact. On the coronal images, the mortise is intact. No significant joint effusion is seen. The musculature is intact. There is mild subcutaneous soft tissue edema over the medial malleolus. IMPRESSION: Mild subcutaneous edema over the medial malleolus. Reviewed, Interpreted and Dictated by Oc Blackwell MD Transcribed by Ny Escalante Authenticated and [facility]
== END ==
PROVIDERS: PCP Nurse Practitioner Family; Visit Provider Podiatrist
DX: M25.571 Pain in right ankle and joints of right foot (principal); M25.371 Other instability, right ankle; G89.29 Other chronic pain
CPT/HCPCS: 73721

== ENCOUNTER → 2023-05-06 09:11 | Outpatient (POV) | payer BC, SELFPAY ==
--- NOTE | 2023-05-06 09:41 | EXP.PAIN.SOA ---
[facility] Pain Management SOAP Note Subjective:: Patient is a pleasant 52-year-old female who presents today for follow-up of left suprascapular nerve block on 04/23/2023. We are currently treating the patient for degenerative disc disease of cervical and lumbar spine with cervical and lumbar radiculopathy symptoms, myofascial pain, cervical spinal stenosis, neck pain, cervical disc bulges multilevel. Today she rates her pain a 7 out of 10. Patient denies any new trauma or injury. She denies any change to location or type of pain she experiences. Patient does state that she has had had 90% improvement of her left shoulder symptoms following her injection. Patient does state that she has been able to increase her activity and range of motion in that joint and feels more functional with it. Patient does state today that her pain is all related to her neck and describes it as an aching, throbbing sensation that is worse with increased activity. Patient does have numbness and tingling more prominent in the right arm and hand in comparison to the left. Patient does state this does interfere with her ability perform activities of daily living such as cooking and cleaning. Patient is currently managed with cyclobenzaprine 5 mg 3 times a day, meloxicam 7.5 mg daily, tramadol 50 mg 3 times a day and gabapentin 300 mg at bedtime. Patient denies any side effects from this medication. She does state that her last visit with Dr. Amos back in March was the last time she had the gabapentin and she is requesting if we can take over this prescription. She does state that she talk to her primary care doctor who stated that our office should be able to prescribe this. Patient does state that she only took this medication at bedtime and that it did provide significant improvement. Patient is also prescribed compounding cream from our office. She does state that she has completed her psych eval over the last month or 2 and is asking for updates regarding proceeding forward with the pain pump trial. Her Leno is [phone]. Its been reviewed and appropriate. Review of Systems: General: No recent weight changes, no fever, no sleep disturbances Respiratory: No cough, no shortness of air, no recurring pulmonary infections Cardiovascular/peripheral vascular: No chest pain, no palpitations, no edema, no shortness of breath Gastrointestinal: No new onset incontinence, normal bowel movements reported Genitourinary: No new onset incontinence Musculoskeletal: Neck pain, bilateral arm pain/numbness/burning Psychiatric: [Normal mood/affect] Neurological: [Denies weakness in extremities], [denies balance issues] Objective:: Physical Exam: General: Alert and oriented x3, no acute distress, pleasant and cooperative Lungs: Respirations even and unlabored, symmetrical chest expansion Eyes: PERRL Musculoskeletal: Flexion and extension of cervical [spine] somewhat guarded secondary to pain, [antalgic gait noted] Neurological: Speech clear, no gross sensory deficit Assessment:: Degenerative disc disease of cervical and lumbar spine with cervical and lumbar radiculopathy symptoms, myofascial pain, cervical spinal stenosis, neck pain, cervical disc bulges multilevel, left shoulder pain Plan:: Patient is experiencing worsening pain in her neck and bilateral arms with numbness and tingling. Patient had limited range of motion of her cervical spine during today's visit. I have discussed with the patient that she may benefit from a cervical epidural steroid injection. Risk and benefits were explained to the patient and she would like to proceed forward with this plan of care. Patient is not on any blood thinners. I have also counseled the patient that I we will contact Olesya Wright's office regarding her psychological evaluation and let her know at future visits. I have reviewed over the risk and benefits of the intrathecal pain pump trial and she still would like to proceed forward with this plan of
[2023-05-06 09:45] VITALS: BP 140/74; PULSE 72; RESP 18; O2SAT 98; BMI 36.0
== END | disposition home or self-care (01) ==
PROVIDERS: Visit Provider Nurse Practitioner Family
DX: M50.10 Cervical disc disorder with radiculopathy, unspecified cervical region (principal); M48.02 Spinal stenosis, cervical region; M51.16 Intervertebral disc disorders with radiculopathy, lumbar region; M79.10 Myalgia, unspecified site; M25.512 Pain in left shoulder
CPT/HCPCS: 99212; G0463

== ENCOUNTER → 2023-05-06 10:42 | Outpatient (CLI) | payer BC, SELFPAY ==
--- NOTE | 2023-05-06 11:05 | CT_ITS ---
FINAL REPORT TECHNIQUE: Postcontrast axial images of the chest were performed in a CTA protocol. This study was performed with techniques to keep radiation doses as low as reasonably achievable, (ALARA). Individualized dose reduction technique using automated exposure control or adjustment of mA and/or kV according to the patient's size were employed. CLINICAL HISTORY: dyspnea, to rule out PE FINDINGS: The heart is normal in size. No adenopathy is identified. No pleural or pericardial effusion is identified. The thoracic aorta is normal in caliber with no focal aneurysm or dissection identified. There is no filling defect to suggest pulmonary embolism. There are mild, patchy groundglass opacities concerning for acute pneumonitis. The images of the upper abdomen are unremarkable. IMPRESSION: No evidence for PE on this exam. Findings concerning for acute pneumonitis. Reviewed, Interpreted and Dictated by Oc Blackwell MD Transcribed by Kelsy Pablo Authenticated and [facility]
[2023-05-06 11:15] LABS: Basophils # 0.1 K/mm3 (0-0.2); Basophils % 0.4 % (0.1-2.0); Eosinophils # 0.1 K/mm3 (0.0-0.4); Eosinophils % 0.6 % (0.1-12.0); Hematocrit 47.5 % (37.0-47.0); Hemoglobin 15.3 g/dL (12.2-16.2); Lymphocytes # 3.9 K/mm3 (0.7-4.5); Lymphocytes % 17.5 % (10-50); Mean Corpuscular HGB Conc 32.1 g/dL (31.8-35.4); Mean Corpuscular Hemoglobin 28.3 pg (27.0-31.2); Mean Corpuscular Volume 88.2 fl (81-99); Mean Platelet Volume 7.1 fl (7.4-10.4); Monocytes % 4.7 % (1.7-9.3); Neutrophils # 16.9 K/mm3 (1.8-7.8); Neutrophils % 76.8 % (37.0-80.0); Platelet Count 496 K/mm3 (142-424); Red Blood Count 5.39 M/mm3 (4.20-5.40); Red Cell Distribution Width 15.3 % (11.5-17.5)
[2023-05-06 11:28] LABS: MANUAL DIFFERENTIAL MANUAL DIFFERENTIAL (MANUAL DIFF)
[2023-05-06 11:48] LABS: Alanine Aminotransferase 31 U/L (12-78); Albumin Level 4.2 g/dl (3.5-5.0); Alkaline Phosphatase 178 U/L (38-126); Anion Gap 14.6 mEq/L (5-15); Aspartate Amino Transferase 20 U/L (14-36); Bilirubin,Total 0.4 mg/dl (0.2-1.3); Blood Urea Nitrogen 27 mg/dl (7-17); Calcium 9.6 mg/dl (8.4-10.2); Carbon Dioxide 25 mmol/L (22.0-30.0); Chloride 101 mmol/L (98-107); Chol/HDL Ratio 4.1 (1-3.5); Cholesterol 257 mg/dl (140-200); Estimated Glomerular Filt Rate 88 ml/min (>60); GFR (African American) 107 ML/MIN (>60); Glucose 99 mg/dl (74-100); HDL Cholesterol 62 mg/dl (40-60); Potassium 4.6 mmoL/L (3.5-5.1); Sodium 136 mmol/L (136-145); Total Protein,Serum 7.8 g/dl (6.3-8.2); Triglycerides 184 mg/dl (30-150); VLDL Cholesterol 37 mg/dL (0-40)
[2023-05-06 11:59] LABS: Direct LDL Cholesterol 149.99 mg/dL (100-129)
[2023-05-06 12:06] LABS: Free T4 (Free Thyroxine) 1.11 ng/dl (0.78-2.19)
[2023-05-06 12:09] LABS: Bilirubin,Direct 0.1 mg/dl (0.0-0.4); Bilirubin,Indirect 0.4 mg/dL (0.0-0.9); Bilirubin,Unconjugated 0.4 mg/dL (0.0-1.1)
[2023-05-06 12:21] LABS: Thyroid Stimulating Hormone 2.04 uIU/mL (0.465-4.68)
[2023-05-06 12:55] LABS: Lymphocytes % 21 % (10-50); Monocytes % 6 % (2-9); Neutrophils % 73 % (42-76); Total Cells Counted 100
[2023-05-06 12:56] LABS: Platelet Estimate Slight Increase; RBC Morphology Normal
== END ==
PROVIDERS: PCP Nurse Practitioner Family; Visit Provider Nurse Practitioner
DX: R06.02 Shortness of breath (principal); R06.00 Dyspnea, unspecified; R00.2 Palpitations; I11.9 Hypertensive heart disease without heart failure; R60.0 Localized edema; R94.30 Abnormal result of cardiovascular function study, unspecified; R94.31 Abnormal electrocardiogram [ECG] [EKG]; G47.33 Obstructive sleep apnea (adult) (pediatric); I63.9 Cerebral infarction, unspecified; E11.9 Type 2 diabetes mellitus without complications
CPT/HCPCS: 36415; 71275; 80048; 80061; 80076; 84439; 84443; 85007; 85025; Q9967

== ENCOUNTER 2023-05-14 09:23 | Day surgery (SDC) | payer BC, SELFPAY ==
[2023-05-14 09:36] VITALS: BP 133/74; PULSE 72; RESP 16; TEMP 36.3; O2SAT 98; BMI 36.0
[2023-05-14 10:00] VITALS: BP 131/88; PULSE 62; RESP 18; O2SAT 97
[2023-05-14 10:02] VITALS: BP 131/88; PULSE 62; RESP 18; O2SAT 97
[2023-05-14 10:10] VITALS: BP 130/80; PULSE 66; RESP 20
--- NOTE | 2023-05-14 10:10 | P.PCN_ITS ---
Procedure Date: 05/14/23 Time: 10:00 Anesthesiologist:: Mello Manzo CRNA Complications:: None Pre-procedure Diagnosis:: Cervical degenerative disc disease. Cervical radiculopathy. Post-procedure Diagnosis:: Same. Indications for Procedure:: Patient is a very pleasant 52-year-old female comes our clinic today for cervical epidural steroid injection. Patient has posterior cervical neck pain as well as bilateral arm radicular symptoms. She rates her pain 7/10. Procedure Details:: Procedure:Cervical epidural steroid injection Informed consent was obtained and the risks and benefits of the procedure were explained to the patient. The patient was taken to the procedure room and noninvasive monitors placed, including noninvasive blood pressure cuff and pulse oximeter. The neck was prepped using Chloraprep as a cleansing solution. The C6- C7 interspace was viewed using fluroscopy. The skin and subcutaneous tissues were anesthetized using lidocaine 1.5% and a 25-gauge needle. After this an 18- gauge Touhy epidural needle was placed into the C6-C7 interspace under fluroscopy guidance and advanced using loss of resistance to air until the epidural space was encountered. After confirmation of needle placement in the epidural space using contrast dye, a solution containing normal saline, 2 mL and Depo-Medrol 80 mg was incrementally injected into the cervical epidural space.~ The patient tolerated the procedure well with no complications. The patient was observed in the Pain Clinic and then discharged home neurologically intact. Plan and Disposition:: Patient was discharged without incident.
== END 2023-05-14 10:10 | disposition home or self-care (01) ==
PROVIDERS: PCP Nurse Practitioner Family; Visit Provider Nurse Anesthetist, Certified Registered
DX: M50.123 Cervical disc disorder at C6-C7 level with radiculopathy (principal)
CPT/HCPCS: 62321; J1040; Q9966

== ENCOUNTER → 2023-05-21 12:16 | Outpatient (CLI) | payer BC, SELFPAY ==
--- NOTE | 2023-05-21 12:19 | XR_ITS ---
FINAL REPORT TECHNIQUE: Chest PA & Lateral CLINICAL HISTORY: PNEUMONITIS FINDINGS: 2 views of the chest were performed. The heart size is normal. The mediastinum is within normal limits. There is no acute cardiopulmonary process. There are no pleural effusions. There is no pneumothorax. The bony thorax appears intact. IMPRESSION: No acute cardiopulmonary process. Reviewed, Interpreted and Dictated by Oc Sibley III, MD Transcribed by Lauro Waters Authenticated and [facility]
[2023-05-21 12:46] LABS: Basophils # 0.1 K/mm3 (0-0.2); Basophils % 0.3 % (0.1-2.0); Eosinophils # 0.2 K/mm3 (0.0-0.4); Eosinophils % 1.2 % (0.1-12.0); Hematocrit 44.6 % (37.0-47.0); Lymphocytes # 3.4 K/mm3 (0.7-4.5); Lymphocytes % 22.8 % (10-50); Mean Corpuscular HGB Conc 31.3 g/dL (31.8-35.4); Mean Corpuscular Volume 89.5 fl (81-99); Mean Platelet Volume 6.9 fl (7.4-10.4); Monocytes # 0.6 K/mm3 (0.1-1.0); Monocytes % 3.7 % (1.7-9.3); Neutrophils # 10.8 K/mm3 (1.8-7.8); Platelet Count 364 K/mm3 (142-424); Red Blood Count 4.99 M/mm3 (4.20-5.40); Red Cell Distribution Width 15.4 % (11.5-17.5)
[2023-05-21 12:59] LABS: MANUAL DIFFERENTIAL MANUAL DIFFERENTIAL (MANUAL DIFF)
[2023-05-21 13:16] LABS: Lymphocytes % 27 % (10-50); Monocytes % 4 % (2-9); Neutrophils % 67 % (42-76); Platelet Estimate Normal; RBC Morphology Normal; Total Cells Counted 100
[2023-05-21 14:17] LABS: Anion Gap 14.4 mEq/L (5-15); Blood Urea Nitrogen 15 mg/dl (7-17); Calcium 9.3 mg/dl (8.4-10.2); Carbon Dioxide 30 mmol/L (22.0-30.0); Chloride 99 mmol/L (98-107); Estimated Glomerular Filt Rate 88 ml/min (>60); GFR (African American) 107 ML/MIN (>60); Glucose 95 mg/dl (74-100); Potassium 4.4 mmoL/L (3.5-5.1); Sodium 139 mmol/L (136-145)
== END ==
PROVIDERS: PCP Nurse Practitioner Family; Visit Provider Nurse Practitioner Family
DX: D72.829 Elevated white blood cell count, unspecified (principal); D75.839 Thrombocytosis, unspecified; J18.9 Pneumonia, unspecified organism
CPT/HCPCS: 36415; 71046; 80048; 85007; 85025

== ENCOUNTER → 2023-05-29 13:40 | Outpatient (POV) | payer SELFPAY ==
[2023-05-29 14:01] VITALS: BP 159/91; PULSE 112; RESP 18; O2SAT 95; BMI 36.0
--- NOTE | 2023-05-29 16:25 | EXP.PAIN.SOA ---
[facility] Pain Management SOAP Note Subjective:: Patient is a pleasant 52-year-old female who presents today for follow-up of cervical epidural steroid injection C6-C7 on 05/14/2023. We are currently treating the patient for degenerative disc disease of cervical and lumbar spine with cervical and lumbar radiculopathy symptoms, myofascial pain, cervical spinal stenosis, neck pain, cervical disc bulges multilevel. Today she rates her pain a 7 out of 10. Patient denies any new trauma or injury. She does state that she has been experiencing more right knee pain and does believe it is related to arthritis. Patient does describe this as an aching, throbbing sensation that is worse with increased activity. She does state the pain can interfere with her ability perform activities of daily living such as cooking and cleaning or even simple ambulation. Patient does state that she did have at least 40 to 50% improvement from her cervical epidural however it only lasted a couple of weeks. Patient does state that she continues to have a pressure sensation at this location. Patient does state that she is scheduled for a doctor's visit with Dr. Delgado on the of this month. Patient is also scheduled for a pain pump trial this coming Saturday. Patient is currently managed with cyclobenzaprine 5 mg 3 times a day, meloxicam 7.5 mg tract daily, tramadol 50 mg 3 times a day and gabapentin 300 mg at bedtime. Patient denies any side effects from these medications. Patient was given a 7-day dose of the gabapentin and she states she thinks it may have helped some. Patient has been prescribed compounding cream in the past. Her Leno is [id number]. Its been reviewed and appropriate. Review of Systems: General: No recent weight changes, no fever, no sleep disturbances Respiratory: No cough, no shortness of air, no recurring pulmonary infections Cardiovascular/peripheral vascular: No chest pain, no palpitations, no edema, no shortness of breath Gastrointestinal: No new onset incontinence, normal bowel movements reported Genitourinary: No new onset incontinence Musculoskeletal: Right knee pain, neck pain Psychiatric: [Normal mood/affect] Neurological: [Denies weakness in extremities], [denies balance issues] Objective:: Physical Exam: General: Alert and oriented x3, no acute distress, pleasant and cooperative Lungs: Respirations even and unlabored, symmetrical chest expansion Eyes: PERRL Musculoskeletal: Flexion and extension of right knee, cervical [spine] somewhat guarded secondary to pain, [antalgic gait noted] Neurological: Speech clear, no gross sensory deficit Assessment:: Degenerative disc disease of cervical and lumbar spine with cervical and lumbar radiculopathy symptoms, cervical spinal stenosis, neck pain, right knee osteoarthritis Plan:: Patient is experiencing worsening pain in her right knee with limited range of motion. I have discussed with the patient that she may benefit from a intra-articular knee injection. Risk and benefits were discussed with the patient and she would like to proceed forward with this plan of care. I will send in a 14-day supply of the gabapentin 300 mg daily. Patient is already scheduled for a intrathecal pain pump trial coming up this Saturday. I have counseled the patient that we will follow-up following this procedure and at that time we can discuss what Dr. Delgado was recommending as well as her continued pain in her neck and knee. Patient will be scheduled for a right knee intra-articular injection. Patient has been instructed to contact the clinic with any concerns before the next appointment. Dr. Barragan has reviewed this note and agrees with this plan of care. This note was dictated using voice recognition software and make contain errors or omissions. [facility] Disclaimer: The information contained in this section may have been updated after the patient was seen, as this information can be updated by other users. Medical History (Updated
== END | disposition home or self-care (01) ==
PROVIDERS: PCP Nurse Practitioner Family; Visit Provider Nurse Practitioner Family
DX: M17.11 Unilateral primary osteoarthritis, right knee (principal); M50.10 Cervical disc disorder with radiculopathy, unspecified cervical region; M51.16 Intervertebral disc disorders with radiculopathy, lumbar region; M48.02 Spinal stenosis, cervical region
CPT/HCPCS: 99212; G0463

== ENCOUNTER 2023-05-31 10:30 | Day surgery (SDC) | payer BC, SELFPAY ==
[2023-05-31] VITALS (7 sets, daily range): BP systolic 137–164; BP diastolic 88–100; PULSE 63–81; RESP 16–18; TEMP 36.7; O2SAT 97–99; BMI 36.0
--- NOTE | 2023-05-31 11:40 | PC.NURSE ---
[pt returned to room, a&o, no c/o pain, vss, family with pt
--- NOTE | 2023-05-31 11:48 | EXP.PAIN.PRO ---
Procedure Date: 05/31/23 Time: 11:49 Anesthesiologist:: Piter Barragan MD Complications:: None Pre-procedure Diagnosis:: Postlaminectomy syndrome lumbar spine with lumbar radiculopathy symptoms Post-procedure Diagnosis:: Same Indications for Procedure:: This patient is a pleasant 52-year-old white female who we are treating for low back pain with lumbar radicular symptoms and postlaminectomy syndrome lumbar spine. She has increasing pain in her back and legs. She has failed all previous conservative treatments including injections, oral medications, physical therapy and she is not a candidate for any further surgery. She is also failed previous surgery. She presents for a intrathecal pump trial today to see if this helps with her pain symptoms. She has had a successful psychological evaluation. Procedure Details:: Pain pump trial Informed consent was obtained and the risk and benefits of the procedure was explained to the patient. The patient was taken to the procedure room and placed prone on the procedure table. Patient was prepped and draped in sterile fashion. C-arm fluoroscopy was used to view the lumbar spine. The skin and subcutaneous tissues were anesthetized using lidocaine. I placed a 18-gauge spinal needle into the L4-5 interspace and advanced until clear CSF was obtained. After this intrathecal catheter was inserted and advanced very easily to the L1 vertebral body. The needle was withdrawn. We were able to freely withdraw clear CSF through the catheter. We then injected intrathecal opioid single shot bolus of 25 mcg followed by saline and followed by the previous CSF that was withdrawn. The needle and catheter were then removed and a Band-Aid was placed. Patient tolerated the procedure well with no complications. We reevaluated the patient after 30 minutes to 1 hour. She was also reassessed by physical therapy. She was 80 to 90% better. Pain score is down to 1 out of 10. She was much more functional. She was able to stand longer and walk better By all indications this was a successful intrathecal pump trial. She was discharged home neurologic intact with good relief of pain symptoms. Plan and Disposition:: We will follow-up with this patient in 1 week to assess efficacy of this trial. If successful we will plan on permanent placement with intrathecal morphine 1 mg per mall to start at 100 mcg/day. Catheter tip will be at the T8 vertebral body.
--- NOTE | 2023-05-31 12:15 | PC.NURSE ---
Pt ambulated in james w/o difficulty
== END 2023-05-31 12:25 | disposition home or self-care (01) ==
PROVIDERS: PCP Nurse Practitioner Family; Visit Provider Anesthesiology
DX: M96.1 Postlaminectomy syndrome, not elsewhere classified (principal); M54.16 Radiculopathy, lumbar region
CPT/HCPCS: 62323

== ENCOUNTER 2023-06-02 13:10 | Emergency (ER) | payer SELFPAY ==
[2023-06-02] VITALS (8 sets, daily range): BP systolic 95–187; BP diastolic 49–97; PULSE 47–61; RESP 11–18; TEMP 36.3–36.6; O2SAT 91–100; BMI 36.0
--- NOTE | 2023-06-02 13:20 | ECG_ITS ---
APPROVED REPORT Exam: Resting ECG HR:56 bpm ECG Measurements Heart Rate 56 AXES MS 152 P 48 QRSd 166 QRS -26 QT 481 T 113 QTc 473 Conclusion SINUS BRADYCARDIA LEFT BUNDLE BRANCH BLOCK [120+ ms QRS DURATION, 80+ ms Q/S IN V1/V2, 85+ ms R IN I/aVL/V5/V6] ABNORMAL ECG UNCONFIRMED REPORT Electronically signed by : Giovanny Fernando MD 06/04/2023 20:07:46
--- NOTE | 2023-06-02 13:22 | PC.NURSE ---
FSBS: 197
[2023-06-02 13:29] LABS: POC Glucose,Bedside 197 (70-110)
--- NOTE | 2023-06-02 13:38 | PC.NURSE ---
notified dr. malcolm of presenting s/s
[2023-06-02 13:43] LABS: Basophils # 0.1 K/mm3 (0-0.2); Basophils % 0.6 % (0.1-2.0); Eosinophils # 0.2 K/mm3 (0.0-0.4); Hematocrit 43.6 % (37.0-47.0); Hemoglobin 13.5 g/dL (12.2-16.2); Lymphocytes # 4.8 K/mm3 (0.7-4.5); Lymphocytes % 31.9 % (10-50); Mean Corpuscular Volume 90.4 fl (81-99); Mean Platelet Volume 7.3 fl (7.4-10.4); Monocytes # 0.6 K/mm3 (0.1-1.0); Monocytes % 4.2 % (1.7-9.3); Neutrophils # 9.4 K/mm3 (1.8-7.8); Neutrophils % 62.3 % (37.0-80.0); Platelet Count 448 K/mm3 (142-424); Red Blood Count 4.82 M/mm3 (4.20-5.40); Red Cell Distribution Width 15.6 % (11.5-17.5)
[2023-06-02 13:44] LABS: MANUAL DIFFERENTIAL MANUAL DIFFERENTIAL (MANUAL DIFF)
--- NOTE | 2023-06-02 13:45 | CT_ITS ---
PROCEDURE INFORMATION: Exam: CTA Head With Contrast, Arteriography Exam date and time: 06/02/2023 1:59 PM Age: 52 years old Clinical indication: Stroke-like symptoms; Headache; Additional info: Sudden severe GARCIA yesterday TECHNIQUE: Imaging protocol: Computed tomographic angiography of the head with contrast. Exam focused on the arteries. 3D rendering (Not supervised by radiologist): MIP and/or 3D reconstructed images were created by the technologist. Radiation optimization: All CT scans at this facility use at least one of these dose optimization techniques: automated exposure control; mA and/or kV adjustment per patient size (includes targeted exams where dose is matched to clinical indication); or iterative reconstruction. Contrast material: ISO 370; Contrast volume: 100 ml; Contrast route: INTRAVENOUS (IV); REPORTING DATA: Count of CT and Cardiac NM exams in prior 12 months: This patient has received [address] and 0 known cardiac nuclear medicine studies in the 12 months prior to the current study. COMPARISON: HEADWO CT head/brain wo con 05/31/2018 6:15 PM FINDINGS: ANTERIOR CIRCULATION: Right internal carotid artery: Intracranial segment is patent with no significant stenosis. No aneurysm. Right middle cerebral artery: No occlusion or significant stenosis. No aneurysm. Blood flow in the right frontal lobe may be slightly hypervascular compared to the left but no enhancing mass is identified. Right anterior cerebral artery: No occlusion or significant stenosis. No aneurysm. Left internal carotid artery: Intracranial segment is patent with no significant stenosis. No aneurysm. Left middle cerebral artery: No occlusion or significant stenosis. No aneurysm. Left anterior cerebral artery: No occlusion or significant stenosis. No aneurysm. POSTERIOR CIRCULATION: Right vertebral artery: No occlusion or significant stenosis. No aneurysm. Left vertebral artery: No occlusion or significant stenosis. No aneurysm. Basilar artery: No occlusion or significant stenosis. No aneurysm. Right posterior cerebral artery: No occlusion or significant stenosis. No aneurysm. Left posterior cerebral artery: No occlusion or significant stenosis. No aneurysm. Brain: No definite mass or midline shift. Subtle low density vasogenic edema is suspected in the right frontal lobe white matter. Cerebral ventricles: No ventriculomegaly. Bones/joints: No acute fracture or focal bone lesions. Soft tissues: No masses or swelling. IMPRESSION: 1. No large vessel stenosis or occlusion. 2. Subtle white matter edema is suspected in the right frontal lobe, and the right MCA frontal lobe vascular territory overall may be slightly hypervascular compared to the left. Consider right frontal lobe neoplasm. MRI of the brain without and with contrast is recommended when the patient's condition allows.
--- NOTE | 2023-06-02 13:45 | CT_ITS ---
PROCEDURE INFORMATION: Exam: CTA Neck With Contrast Exam date and time: 06/02/2023 1:59 PM Age: 52 years old Clinical indication: Stroke-like symptoms; Headache; Additional info: Sudden severe GARCIA yesterday TECHNIQUE: Imaging protocol: Computed tomographic angiography of the neck with contrast. 3D rendering (Not supervised by radiologist): MIP and/or 3D reconstructed images were created by the technologist. Radiation optimization: All CT scans at this facility use at least one of these dose optimization techniques: automated exposure control; mA and/or kV adjustment per patient size (includes targeted exams where dose is matched to clinical indication); or iterative reconstruction. Contrast material: ISO 370; Contrast volume: 100 ml; Contrast route: INTRAVENOUS (IV); REPORTING DATA: Count of CT and Cardiac NM exams in prior 12 months: This patient has received [address] and 0 known cardiac nuclear medicine studies in the 12 months prior to the current study. COMPARISON: CT ANGIO CHEST PE PROTOCOL 05/06/2023 11:59 AM FINDINGS: Right common carotid artery: No stenosis. No dissection or occlusion. Right internal carotid artery: No stenosis of the extracranial segment. No dissection or occlusion. Right external carotid artery: No occlusion or stenosis of the origin. Left common carotid artery: No stenosis. No dissection or occlusion. Left internal carotid artery: No stenosis of the extracranial segment. No dissection or occlusion. Left external carotid artery: No occlusion or stenosis of the origin. Right vertebral artery: No stenosis. No dissection or occlusion. Left vertebral artery: No stenosis. No dissection or occlusion. Soft tissues: No significant soft tissue swelling. Bones/joints: No acute fracture, subluxations, or bone lesions. IMPRESSION: No stenosis or occlusion. REFERENCES: NASCET CRITERIA. The degree of stenosis in the cervical segment of the internal carotid artery is based on NASCET criteria. Normal is no stenosis. Mild is less than 50% stenosis. Moderate is 50-69% stenosis. Severe is 70% to 99% stenosis. Total occlusion is no detectable patent lumen.
--- NOTE | 2023-06-02 13:45 | CT_ITS ---
PROCEDURE INFORMATION: Exam: CT Head Without Contrast Exam date and time: 06/02/2023 1:59 PM Age: 52 years old Clinical indication: Stroke-like symptoms; Headache; Additional info: Sudden severe GARCIA yesterday TECHNIQUE: Imaging protocol: Computed tomography of the head without contrast. Radiation optimization: All CT scans at this facility use at least one of these dose optimization techniques: automated exposure control; mA and/or kV adjustment per patient size (includes targeted exams where dose is matched to clinical indication); or iterative reconstruction. Other technique: STROKE PROTOCOL was implemented. REPORTING DATA: Count of CT and Cardiac NM exams in prior 12 months: This patient has received [address] and 0 known cardiac nuclear medicine studies in the 12 months prior to the current study. COMPARISON: HEADWO CT head/brain wo con 05/31/2018 6:15 PM FINDINGS: Brain: Subtle low density is suspected in the white matter of the right frontal lobe and sulcus effacement is suspected. No intracranial hemorrhages. No other intra-axial or extra-axial lesions or masses. Cerebral ventricles: Possibly slight leftward mass effect upon the right lateral ventricle. Paranasal sinuses: Visualized sinuses are well aerated. No fluid levels. Mastoid air cells: Visualized mastoid air cells are well aerated. Bones/joints: No acute fracture or bone lesions. Soft tissues: No abnormalities. IMPRESSION: Subtle low-density with mass effect is suspected in the white matter of the right frontal lobe and could represent a subacute infarction or neoplasm. MRI of the brain without and with contrast is suggested. ASSESSMENT: ASPECTS ([place] Stroke Program Early CT Score) is 8.
--- NOTE | 2023-06-02 13:45 | PC.NURSE ---
rad notified of stat cts on pt, dr. malcolm states do not wait on labs.
[2023-06-02 13:46] LABS: Chloride 104 mmol/L (98-107); Sodium 140 mmol/L (136-145)
[2023-06-02 13:47] LABS: Potassium 3.2 mmoL/L (3.5-5.1)
[2023-06-02 13:49] LABS: Alanine Aminotransferase 30 U/L (12-78); Albumin Level 3.8 g/dl (3.5-5.0); Albumin/Globulin Ratio 1.3 (1.1-1.8); Alkaline Phosphatase 174 U/L (38-126); Anion Gap 13.2 mEq/L (5-15); Aspartate Amino Transferase 23 U/L (14-36); Bilirubin,Total 0.2 mg/dl (0.2-1.3); Blood Urea Nitrogen 16 mg/dl (7-17); Carbon Dioxide 26 mmol/L (22.0-30.0); Creatinine Clearance Estimated 183 mL/min (50-200); Estimated Glomerular Filt Rate 105 ml/min (>60); GFR (African American) 128 ML/MIN (>60); Total Protein,Serum 6.8 g/dl (6.3-8.2)
[2023-06-02 13:50] LABS: Calcium 8.9 mg/dl (8.4-10.2); Glucose 232 mg/dl (74-100)
--- NOTE | 2023-06-02 13:54 | HMH.EDGENADL ---
Discharge Plan Disposition Patient Disposition: Still a Patient Prescriptions Prescriptions: No Action montelukast 10 mg tablet 10 mg PO DAILY cholecalciferol (vitamin D3) 25 mcg (1,000 unit) tablet 25 mcg PO DAILY fluticasone propionate 50 mcg/actuation spray,suspension 50 mcg NS DAILY propranolol 20 mg tablet 20 mg PO BID venlafaxine 150 mg capsule,extended release 24hr 150 mg PO DAILY pantoprazole 40 mg tablet,delayed release (DR/EC) 40 mg PO DAILY (DME) BD Luer-Chantelle Syringe 3 mL 25 gauge x 1 syringe See Rx Instructions .ROUTE .MEDSUPPLY Qty: 1 Rx Instructions: As directed polyethylene glycol 3350 17 gram/dose powder 17 g PO DAILY albuterol sulfate 90 mcg/actuation HFA aerosol inhaler 2 inh inhalation Q6H PRN (Reason: copd) cyclobenzaprine 5 mg tablet 5 mg PO DAILY varenicline 0.5 mg (11)- 1 mg (42) tablets,dose pack 0.5 tab PO PER PKG DIR levocetirizine 5 mg tablet 5 mg PO DAILY melatonin 3 mg tablet 3 mg PO HS PRN (Reason: SLEEP AID) cetirizine 10 mg tablet 10 mg PO DAILY tramadol 50 mg tablet 50 mg PO TIDP PRN (Reason: Pain) cyanocobalamin (vitamin B-12) 1,000 mcg/mL solution 1,000 mcg SQ MONTHLY losartan 100 mg tablet 100 mg PO DAILY Myrbetriq 50 mg tablet extended release 24 hr 50 mg PO DAILY meloxicam 7.5 mg tablet 7.5 mg PO BID famotidine 40 mg tablet 40 mg PO BID furosemide [Lasix] 40 mg tablet 40 mg PO DAILY phentermine [Adipex-P] 37.5 mg tablet 37.5 mg PO DAILY Rx Instructions: must administer 30 minutes before or 1-2 hours after breakfast rosuvastatin [Crestor] 40 mg tablet 40 mg PO DAILY gabapentin 300 mg capsule 300 mg PO HS Qty: 14 0RF Referrals Follow up/Referrals: Giulia Dunlap APRN [Primary Care Provider] - See instructions Clinical Impressions Clinical Impression: Headache, Hypertension, Bradycardia, Right frontal lobe lesion Stand Alone Forms Stand Alone Forms: Transfer Record - ED Discharge ED Provider: James Joya General Adult HPI General Chief complaint: Weakness Stated complaint: migraine neck pain chest numbness Time Seen by Provider: 06/02/23 13:40 Mode of Arrival: Ambulatory Source of Information: Patient Limitations: No Limitations Description of Symptoms (Recalled from ER Triage Doc. by RN): Pt reports terrible headache , pain all around her neck, reports symptoms started yesterday. Pt also reports pain across her lower back, harini hips and down both legs. Pt reports feeling weak Pt is diaphoretic, states it started on the way to the hospital. Pt reports she had a pain pump trial here at [facility] On saturday. History of Present Illness HPI narrative: Patient is a 52-year-old female here with a severe headache. She states that this began relatively suddenly yesterday when she woke up from sleep and rates onset was the same time of its maximal intensity is slightly improved over the last few days but it still severe in nature. She denies any fevers she denies any neck stiffness. She denies any history of aneurysms or any family history of any aneurysms. The patient herself does not give any further history as she is somewhat somnolent. I went discussed the case with her daughter who is in the waiting room daughter states that she had a pain pump trial on Saturday and that she was having a mild headache just prior to that but once the pain pump trial was finished she started having worsening headache. However she agrees that her mother states she woke up with a severe headache yesterday and had some nausea and vomiting yesterday and that she had an ongoing headache since yesterday evening into today and on the way to the hospital today she became very diaphoretic. Patient denies any chest pain shortness of breath or any other symptoms. Related Data Home Medications Medication Instructions Cosmo
[2023-06-02 13:58] LABS: Eosinophils % 1 % (0-3); Lymphocytes % 27 % (10-50); Monocytes % 8 % (2-9); Neutrophils % 64 % (42-76); Platelet Estimate Normal; RBC Morphology Normal; Total Cells Counted 100
[2023-06-02 14:01] LABS: INR 0.98 (0.9-1.1); Prothrombin Time 10.6 seconds (10.1-12.5)
[2023-06-02 14:03] LABS: Troponin I < 0.01 ng/ml (0.00-0.034)
--- NOTE | 2023-06-02 14:17 | PC.NURSE ---
pt back to room. Keeping HOB @ 30 degrees per MD. Pt is GSC 14. Still c/o severe headache and weakness. MD reviewed CT head wo prior to angios.
--- NOTE | 2023-06-02 14:30 | PC.NURSE ---
Dr Joya speaking with joelle
--- NOTE | 2023-06-02 14:39 | PC.NURSE ---
Dr. Joya s/w [facility] regarding Angio CT results.
--- NOTE | 2023-06-02 14:55 | PC.NURSE ---
dr. malcolm at BS discussing POC with pt
--- NOTE | 2023-06-02 15:01 | PC.NURSE ---
Family at BS
--- NOTE | 2023-06-02 15:20 | PC.NURSE ---
pt accepted to ER per Dr. Cuellar
--- NOTE | 2023-06-02 15:47 | PC.NURSE ---
pt requesting warm blankets. We completed a total bed change and placed in dry gown. Gave non-skid socks and placed in brief. She attempted to use the bed hinson prior to transfer. She was unable void. Updated pt & family on anticipated wait time for transfer.
--- NOTE | 2023-06-02 15:49 | PC.NURSE ---
Pt changed into a gown. All belongings placed in bag and given to visitor. Warm blankets provided. No other needs voiced at this time.
--- NOTE | 2023-06-02 16:56 | PC.NURSE ---
Addendum entered by Ally Matthews RN 06/02/23 16:59: pt asked for additional medication for h/a, ER MD Friedman gave verbal order for ketorlac 15 mg IV once Original Note: rounded on pt at this time, updated pt and family on status of transport, EMS is waiting on their other truck to clear and then they will transport pt. EMS is present at ER to transport pt.
== END 2023-06-02 17:42 | disposition short-term general hospital (02) ==
PROVIDERS: Emergency Provider Student in an Organized Health Care Education/Training Program; PCP Nurse Practitioner Family
DX: R51.9 Headache, unspecified (principal); R00.1 Bradycardia, unspecified; I10 Essential (primary) hypertension; M54.2 Cervicalgia; R53.1 Weakness; R90.0 Intracranial space-occupying lesion found on diagnostic imaging of central nervous system; E11.9 Type 2 diabetes mellitus without complications; G47.33 Obstructive sleep apnea (adult) (pediatric); I20.9 Angina pectoris, unspecified
CPT/HCPCS: 70450; 70496; 70498; 80053; 82962; 84484; 85007; 85025; 85610; 93005; 96361; 96374; 99285; J0131; Q9967

== ENCOUNTER → 2023-06-07 13:35 | Outpatient (POV) | payer BC, SELFPAY ==
[2023-06-07 14:13] VITALS: BP 109/82; PULSE 109; RESP 18; O2SAT 95; BMI 35.9
--- NOTE | 2023-06-07 15:23 | EXP.PAIN.SOA ---
[facility] Pain Management SOAP Note Subjective:: This patient is a very pleasant 52-year-old female that comes our clinic today following up after receiving intrathecal pain pump trial on 05/31/2023. Patient reports complete relief of all symptoms in regards to her low back pain and bilateral hip and leg radicular symptoms. However, patient return to the emergency room day 2 post trial. Her symptoms were severe postural headache. Photophobia. Nausea and vomiting. Patient had multiple scans and blood work. All of which returned negative. I discussed in detail with the patient today regarding posterior puncture headache signs and symptoms. I informed the patient it appears her headache could be coming from the dura puncture during the pump trial. I encouraged the patient to remain supine when possible. Increase hydration. Specifically, caffeinated beverage. Patient states she has some leftover pain medication from a previous surgery and has taken 1 each evening to help with sleep. She is requesting some additional pain medication. I think this is reasonable. I will write her hydrocodone 5 mg 1 p.o. twice daily #14. Patient requesting to move forward with intrathecal pain pump implant. I discussed in detail with the patient regarding the pump and how it works. Answered her questions. Objective:: Patient is awake alert [place] x3. In no acute distress. Flexion-extension lumbar spine somewhat guarded secondary to pain. Deep tendon reflexes upper lower extremities normal. Motor strength upper and lower extremities normal. There is no gross sensory deficit. Gait is normal. Assessment:: Degenerative disc lumbar spine multilevels. Lumbar radiculopathy. Lumbar postlaminectomy syndrome. Plan:: We will schedule patient for intrathecal pain pump implant. [facility] Disclaimer: The information contained in this section may have been updated after the patient was seen, as this information can be updated by other users. Medical History (Updated 06/02/23 @ 15:26 by James Joya MD) Abnormal electrocardiogram [ECG] [EKG] Abnormal result of cardiovascular function study Back pain with history of spinal surgery Chest pain Edema of both lower extremities Elevated left ventricular end-diastolic pressure (LVEDP) Family history of ischemic heart disease (IHD) Newly diagnosed diabetes REINA (obstructive sleep apnea) Osteoarthritis of feet, bilateral Palpitations SOB (shortness of breath) on exertion Typical angina Surgical History History of partial hysterectomy History of tonsillectomy Hx of foot surgery Hx of total hip arthroplasty Family History Other Cancer Coronary artery disease Diabetes Family history of diabetes mellitus type II Family history of hyperlipidemia Family history of hypothyroidism Family history of stroke Heart attack Social History Smoking Status: Unknown if ever smoked smoking status start date: 05/01/23 alcohol intake: never substance use type: denies use current occupational status: other Travel in the last 8 weeks: None household members: significant other housing: house lives independently: Yes marital status: single education level: high school service: No 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
== END | disposition home or self-care (01) ==
PROVIDERS: PCP Nurse Practitioner Family; Visit Provider Nurse Anesthetist, Certified Registered
DX: M51.16 Intervertebral disc disorders with radiculopathy, lumbar region (principal); M96.1 Postlaminectomy syndrome, not elsewhere classified
CPT/HCPCS: 99212; G0463

== ENCOUNTER → 2023-06-13 08:32 | Outpatient (POV) | payer BC, SELFPAY ==
[2023-06-13 08:44] VITALS: BP 135/81; PULSE 94; RESP 18; O2SAT 99; BMI 37.3
--- NOTE | 2023-06-13 08:52 | EXP.PAIN.SOA ---
[facility] Pain Management SOAP Note Subjective:: Patient is a pleasant 52-year-old female who presents today for follow-up and medication refill. We are currently treating the patient for degenerative disc disease of cervical and lumbar spine with cervical and lumbar radiculopathy symptoms, myofascial pain, cervical spinal stenosis, neck pain, cervical disc bulges multilevel, headaches. Today she rates her pain a 6 out of 10. From her last visit the patient states she did have additional testing and work-up done at [facility] and was found to have had a small stroke. Patient denies any residual effects following this episode. She does state that she is continued to have headaches on a daily basis however today seems a little bit better so far. Patient does state that they added a 81 mg aspirin onto her medications. She states she is scheduled for an echocardiogram coming up and that she does have a follow-up at on July 11. Patient does states she continues to have daily aches and pains in her low back that can be very debilitating. Patient did have a intrathecal pain pump trial that she states provided 100% improvement for that day. She states that she was able to increase her activity with decreased pain symptoms and felt overall much more functional. Patient does state that she would like to proceed forward with this surgical intervention. Today she is back to her baseline and states it is a chronic aching, throbbing sensation that is worse with increased activity. The pain can interfere with her ability perform activities of daily living such as cooking and cleaning or even simple ambulation. She is currently managed with cyclobenzaprine 5 mg 3 times a day, meloxicam 7.5 mg tract daily, [place] 5 mg twice a day and gabapentin 300 mg at bedtime. Patient denies any side effects from these medications. Patient has been prescribed compounding cream in the past. Patient does also state that she continues to have some pain around her left ankle where she had a procedure to remove the screw back in March. Her Leno is [id number]. Its been reviewed and appropriate. Review of Systems: General: No recent weight changes, no fever, no sleep disturbances Respiratory: No cough, no shortness of air, no recurring pulmonary infections Cardiovascular/peripheral vascular: No chest pain, no palpitations, no edema, no shortness of breath Gastrointestinal: No new onset incontinence, normal bowel movements reported Genitourinary: No new onset incontinence Musculoskeletal: Headache, low back pain Psychiatric: [Normal mood/affect] Neurological: [Denies weakness in extremities], [denies balance issues] Objective:: Physical Exam: General: Alert and oriented x3, no acute distress, pleasant and cooperative Lungs: Respirations even and unlabored, symmetrical chest expansion Eyes: PERRL Musculoskeletal: Flexion and extension of lumbar [spine] somewhat guarded secondary to pain, [antalgic gait noted] Neurological: Speech clear, no gross sensory deficit Assessment:: Degenerative disc disease of cervical and lumbar spine with cervical and lumbar radiculopathy symptoms, myofascial pain, cervical spinal stenosis, neck pain, headaches Plan:: Patient continues to experience chronic pain in her low back and had limited range of motion of her lumbar spine. Patient is also experiencing headaches on a daily basis. I have discussed with the patient that she may benefit from occipital nerve blocks. Risk and benefits were discussed with the patient and she would like to proceed forward with this plan of care. I have also discussed with the patient regarding the intrathecal pain pump implant and reviewed over the risk and benefits of this procedure. Patient has tried and failed conservative therapy such as oral medication, heat and ice, topicals, physical therapy, at home stretching exercise for longer than 12 weeks. Patient did have a successful intrathecal pump trial with 100% improvement and
== END | disposition home or self-care (01) ==
PROVIDERS: Visit Provider Nurse Practitioner Family
DX: M50.10 Cervical disc disorder with radiculopathy, unspecified cervical region (principal); M51.16 Intervertebral disc disorders with radiculopathy, lumbar region; M79.10 Myalgia, unspecified site; M48.02 Spinal stenosis, cervical region; R51.9 Headache, unspecified
CPT/HCPCS: 99212; G0463

== ENCOUNTER → 2023-07-17 10:08 | Outpatient (CLI) | payer OTHER, SELFPAY ==
[2023-07-17 10:47] LABS: Basophils # 0.1 K/mm3 (0-0.2); Basophils % 0.8 % (0.1-2.0); Eosinophils # 0.1 K/mm3 (0.0-0.4); Hematocrit 37.5 % (37.0-47.0); Hemoglobin 12.5 g/dL (12.2-16.2); Lymphocytes # 3.8 K/mm3 (0.7-4.5); Lymphocytes % 30.5 % (10-50); Mean Corpuscular HGB Conc 33.3 g/dL (31.8-35.4); Mean Corpuscular Hemoglobin 30.1 pg (27.0-31.2); Mean Corpuscular Volume 90.3 fl (81-99); Mean Platelet Volume 7.4 fl (7.4-10.4); Monocytes # 0.7 K/mm3 (0.1-1.0); Monocytes % 5.3 % (1.7-9.3); Neutrophils # 7.7 K/mm3 (1.8-7.8); Neutrophils % 62.4 % (37.0-80.0); Platelet Count 415 K/mm3 (142-424); Red Blood Count 4.15 M/mm3 (4.20-5.40); Red Cell Distribution Width 14.8 % (11.5-17.5); White Blood Count 12.4 K/mm3 (4.8-10.8)
[2023-07-17 11:04] LABS: Alanine Aminotransferase 44 U/L (12-78); Albumin Level 3.9 g/dl (3.5-5.0); Alkaline Phosphatase 134 U/L (38-126); Aspartate Amino Transferase 31 U/L (14-36); Blood Urea Nitrogen 12 mg/dl (7-17); Calcium 9.3 mg/dl (8.4-10.2); Carbon Dioxide 28 mmol/L (22.0-30.0); Chloride 105 mmol/L (98-107); Chol/HDL Ratio 5.1 (1-3.5); Cholesterol 183 mg/dl (140-200); Estimated Glomerular Filt Rate 88 ml/min (>60); GFR (African American) 107 ML/MIN (>60); Glucose 117 mg/dl (74-100); HDL Cholesterol 36 mg/dl (40-60); Magnesium 1.9 mg/dl (1.6-2.3); Sodium 141 mmol/L (136-145); Total Protein,Serum 6.5 g/dl (6.3-8.2); Triglycerides 189 mg/dl (30-150); VLDL Cholesterol 38 mg/dL (0-40)
[2023-07-17 11:05] LABS: Bilirubin,Total < 0.1 mg/dl (0.2-1.3)
[2023-07-17 11:16] LABS: Direct LDL Cholesterol 117.46 mg/dL (100-129)
[2023-07-17 11:21] LABS: Free T4 (Free Thyroxine) 1.06 ng/dl (0.78-2.19)
[2023-07-17 11:36] LABS: Thyroid Stimulating Hormone 3.05 uIU/mL (0.465-4.68)
[2023-07-17 12:34] LABS: Bilirubin,Direct 0.1 mg/dl (0.0-0.4)
== END ==
LOC: RT 10:09
PROVIDERS: PCP Nurse Practitioner Family; Visit Provider Nurse Practitioner
DX: I10 Essential (primary) hypertension (principal); Z86.73 Personal history of transient ischemic attack (TIA), and cerebral infarction without residual deficits; R00.1 Bradycardia, unspecified; R06.00 Dyspnea, unspecified; R06.02 Shortness of breath; R42 Dizziness and giddiness; R60.9 Edema, unspecified; R94.31 Abnormal electrocardiogram [ECG] [EKG]; G47.33 Obstructive sleep apnea (adult) (pediatric)
CPT/HCPCS: 36415; 80048; 80061; 80076; 83735; 84439; 84443; 85025; 93270

== ENCOUNTER 2023-09-07 15:19 | Emergency (ER) | payer OTHER, SELFPAY ==
--- NOTE | 2023-09-07 15:46 | EXP.UTC ---
Discharge Plan Disposition Patient Disposition: Home, Self-Care Condition: Good Prescriptions Prescriptions: New azithromycin [Zithromax] 250 mg tablet 250 mg PO UD DOSE PK Qty: 6 0RF Rx Instructions: Take two (2) tablets today, then one (1) tablet days #2 thru #5 benzonatate 200 mg capsule 200 mg PO BID PRN (Reason: cough) Qty: 30 0RF No Action primidone 50 mg tablet 50 mg PO DAILY cetirizine 10 mg tablet 10 mg PO DAILY venlafaxine 150 mg capsule,extended release 24hr 150 mg PO DAILY cyanocobalamin (vitamin B-12) 1,000 mcg/mL solution 1,000 mcg IM WEEKLY losartan 100 mg tablet 100 mg PO DAILY rosuvastatin 40 mg tablet 40 mg PO DAILY varenicline 1 mg tablet 1 mg PO DAILY Referrals Follow up/Referrals: Giulia Dunlap APRN [Primary Care Provider] - See instructions Activity Restrictions/Add. Instructions Additional Instructions/Restrictions: Drink plenty of fluids. Take tylenol or ibuprofen for pain or fever. Take the medications as directed. Follow up with your regular doctor. GO TO THE ER FOR ANY WORSENING SYMPTOMS Clinical Impressions Clinical Impression: Sinusitis, Otitis, Acute viral syndrome Instructions Patient Instructions: Sinusitis, DI for Sinusitis Discharge ED Provider: Skip Pabon [facility] General Stated complaint: headache,ear pain Time Seen by Provider: 09/07/23 15:46 History of Present Illness Provider Complaint: She states that for the past 1 day she has had ear pain, sinus congestion, and she has felt bad. She has also had chilling and fever. Related Data Home Medications Medication Instructions Recorded Confirmed cetirizine 10 mg tablet 10 mg PO DAILY 09/07/23 09/07/23 cyanocobalamin (vitamin B-12) 1,000 mcg IM WEEKLY 09/07/23 09/07/23 1,000 mcg/mL injection solution losartan 100 mg tablet 100 mg PO DAILY 09/07/23 09/07/23 primidone 50 mg tablet 50 mg PO DAILY 09/07/23 09/07/23 rosuvastatin 40 mg tablet 40 mg PO DAILY 09/07/23 09/07/23 varenicline 1 mg tablet 1 mg PO DAILY 09/07/23 09/07/23 venlafaxine 150 mg 150 mg PO DAILY 09/07/23 09/07/23 capsule,extended release 24 hr Previous Rx's Medication Instructions Recorded azithromycin 250 mg tablet 250 mg PO UD DOSE PK #6 tabs 09/07/23 (Zithromax) benzonatate 200 mg capsule 200 mg PO BID PRN cough #30 caps 09/07/23 Allergies Allergy/AdvReac Type Severity Reaction Status Date / Time No Known Allergies Allergy Verified 08/19/23 09:22 [facility] Disclaimer: The information contained in this section may have been updated after the patient was seen, as this information can be updated by other users. Medical History (Updated 09/07/23 @ 16:39 by Skip Pabon APRN) Abnormal electrocardiogram [ECG] [EKG] Abnormal result of cardiovascular function study Back pain with history of spinal surgery Chest pain Edema of both lower extremities Elevated left ventricular end-diastolic pressure (LVEDP) Family history of ischemic heart disease (IHD) HLD (hyperlipidemia) Newly diagnosed diabetes REINA (obstructive sleep apnea) Osteoarthritis of feet, bilateral Palpitations SOB (shortness of breath) on exertion Typical angina Surgical History History of partial hysterectomy History of tonsillectomy Hx of foot surgery Hx of total hip arthroplasty Family History Other Cancer Coronary artery disease Diabetes Family history of diabetes mellitus type II Family history of hyperlipidemia Family history of hypothyroidism Family history of stroke Heart attack Social History Smoking Status: Unknown if ever smoked smoking status start date: 05/01/23 alcohol intake: never substance use type: denies use current occupational status: other Travel in the last 8 weeks: None household members: significant other housing: house lives independently: Yes marital status: single education level: high school service: No 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 ROS Obtained: Yes All systems reviewed & no additional complaints except as documented Constitutional Constitutional: Reports chills and Reports fever(s) Eyes Eyes: Denies eye discharge ENT Ears, Nose, Mouth, and Throat: Reports as per HPI Cardiovascular Cardiovascular: Denies chest pain Respiratory Respiratory: Denies chest congestion and Reports cough Gastrointestinal Gastrointestingal: Reports nausea; Denies abdominal pain, constipation, cramping, diarrhea or vomiting Musculoskeletal Musculoskeletal: Denies arthralgias Integumentary/Breasts Skin/Breast: Denies rash Neurologic Neurologic: Denies paresthesias Physical Exam General General appearance: alert and in no apparent distress Eye Eye exam: Present normal appearance, PERRL and EOMI ENT ENT exam: Present mucous membranes moist and normal external ear exam Expanded ENT Exam External ear exam: Present normal external inspection TM/Canal exam: Bilateral TM: erythema and bulging Nose exam: Absent sinus tenderness Nasal speculum exam: Bilateral: normal Mouth exam: Present normal external inspection; Absent drooling Teeth exam: Present normal inspection Throat exam: Present tonsillar erythema and tonsillomegaly Neck Neck exam: Present normal inspection, full ROM and trachea midline; Absent tenderness, lymphadenopathy or thyromegaly Chest Chest inspection: Present normal inspection and symmetric chest wall rise; Absent tenderness or rash Respiratory Respiratory exam: Present normal lung sounds bilaterally; Absent respiratory distress, wheezes, stridor or accessory muscle use Cardiovascular Cardiovascular exam: Present regular rate, normal rhythm and normal heart sounds Abdominal Exam Abdominal exam: Present soft; Absent distention, tenderness, guarding, rebound or rigidity Extremities Exam Extremities exam: Present normal inspection, full ROM and normal capillary refill; Absent tenderness or calf tenderness Back Exam Back exam: Present normal inspection and full ROM; Absent tenderness Neurological Exam Neurological exam: Present alert and oriented X3 Psychiatric Psychiatric exam: Present normal affect and normal mood Skin Skin exam: Present warm, dry, intact and normal color Lymphatic Lymphatic Findings: no adenopathy Medical Decision Making Medical Records Medical records reviewed: No I reviewed the patient's medical records. Leno Inquiry Pt receiving controlled substance: No Lab Data Lab results reviewed: Yes I reviewed the patient's lab results.
[2023-09-07 15:50] VITALS: BP 156/92; PULSE 119; RESP 20; TEMP 37.9; O2SAT 98; BMI 38.2
[2023-09-07 16:25] LABS: UTC Influenza A Antigen Negative (Negative); UTC Influenza B Antigen Negative (Negative)
[2023-09-07 16:27] VITALS: BP 156/92; PULSE 119; RESP 20; TEMP 37.9; O2SAT 98
== END 2023-09-07 16:45 | disposition home or self-care (01) ==
PROVIDERS: Emergency Provider Nurse Practitioner Family; PCP Nurse Practitioner Family
DX: U07.1 COVID-19 (principal); R51.9 Headache, unspecified; R50.9 Fever, unspecified; J01.90 Acute sinusitis, unspecified; H66.93 Otitis media, unspecified, bilateral; R09.81 Nasal congestion; R05.9 Cough, unspecified; E78.5 Hyperlipidemia, unspecified; I11.9 Hypertensive heart disease without heart failure; I20.9 Angina pectoris, unspecified
CPT/HCPCS: 87635; 87804; 99212; 99214; G0463

== ENCOUNTER 2023-10-16 12:40 | Outpatient (CLI) | payer OTHER, SELFPAY ==
--- NOTE | 2023-10-16 12:48 | US_ITS ---
FINAL REPORT CLINICAL HISTORY: Decreased pedal pulses, HLD, CVA, HTN, smoker FINDINGS: COMPLETE ANKLE/BRACHIAL INDICES BILATERAL The right SID is 1.0. The left SID is 1.1. IMPRESSION: ABIs are within normal limits bilaterally. Reviewed, Interpreted and Dictated by Oc Sibley III, MD Transcribed by Melissa Mendoza Authenticated and [facility]
[2023-10-16 14:15] LABS: Alanine Aminotransferase 21 U/L (12-78); Alkaline Phosphatase 150 U/L (38-126); Aspartate Amino Transferase 19 U/L (14-36); Bilirubin,Direct 0.1 mg/dl (0.0-0.4); Cholesterol 145 mg/dl (140-200); Triglycerides 112 mg/dl (30-150); VLDL Cholesterol 22 mg/dL (0-40)
[2023-10-16 14:16] LABS: Albumin Level 3.9 g/dl (3.5-5.0); Chol/HDL Ratio 3.5 (1-3.5); HDL Cholesterol 41 mg/dl (40-60); Total Protein,Serum 6.8 g/dl (6.3-8.2)
[2023-10-16 14:17] LABS: Bilirubin,Total 0.1 mg/dl (0.2-1.3)
[2023-10-16 14:29] LABS: Direct LDL Cholesterol 77.75 mg/dL (100-129)
== END 2023-10-16 23:59 ==
LOC: RT 12:43
PROVIDERS: Nurse Practitioner; PCP Nurse Practitioner Family; Visit Provider Podiatrist
DX: R09.89 Other specified symptoms and signs involving the circulatory and respiratory systems (principal); E78.5 Hyperlipidemia, unspecified; I63.9 Cerebral infarction, unspecified
CPT/HCPCS: 80061; 80076; 93923

== ENCOUNTER 2023-11-07 17:21 | Outpatient (CLI) | payer OTHER, SELFPAY ==
--- NOTE | 2023-11-07 17:21 | MR_ITS ---
PROCEDURE INFORMATION: Exam: MR Head Without and With Contrast Exam date and time: 11/07/2023 5:17 PM Age: 53 years old Clinical indication: Pain; Headache; Additional info: Compare to [facility] 05/2023 TECHNIQUE: Imaging protocol: Magnetic resonance imaging of the head without and with contrast. Contrast material: PROHANCE; Contrast volume: 22 ml; Contrast route: IV; COMPARISON: CT ANGIO HEAD 06/02/2023 1:59 PM FINDINGS: Brain: Normal. No acute infarct. No hemorrhage. A few nonspecific foci of T2 and FLAIR hyperintensity within the periventricular white matter posterior right parietal region. No associated abnormal enhancement. No edema. Cerebral ventricles: Normal. No ventriculomegaly. Bones/joints: Unremarkable. Paranasal sinuses: Normal as visualized. No acute sinusitis. Mastoid air cells: Normal as visualized. No mastoid effusion. Orbital cavities: Unremarkable. Soft tissues: Unremarkable. IMPRESSION: No acute findings. Specifically, no right frontal lobe abnormality as raised on the prior CT examination.
[2023-11-07 17:59] LABS: Blood Urea Nitrogen 15 mg/dl (7-17); Estimated Glomerular Filt Rate 36 ml/min (>60); GFR (African American) 44 ML/MIN (>60)
[2023-11-07] MEDS: SODIUM CHLORIDE 0.9% 10ML SYR (RAD ONLY) 10 ML IV (18:14)
[2023-11-07] MEDS: GADOTERIDOL INJ 17ML SYRINGE 22 ML IV (18:14)
== END 2023-11-07 23:59 ==
LOC: RAD 17:21
PROVIDERS: PCP Nurse Practitioner Family; Visit Provider Nurse Practitioner Family
DX: I60.9 Nontraumatic subarachnoid hemorrhage, unspecified (principal); I63.81 Other cerebral infarction due to occlusion or stenosis of small artery
CPT/HCPCS: 36415; 70553; 82565; 84520; A9576

== ENCOUNTER 2023-11-08 12:37 | Outpatient (CLI) | payer OTHER, SELFPAY ==
--- NOTE | 2023-11-08 13:31 | MM_ITS ---
PROCEDURE INFORMATION: Exam: MG Bilateral Screening 3D Mammography Exam date and time: 11/08/2023 1:24 PM Age: 53 years old Clinical indication: Screening mammogram TECHNIQUE: Imaging protocol: Bilateral Screening tomosynthesis and 2D mammography including computer-aided detection (CAD) when performed. COMPARISON: 1. MG MM DIG SCREENING MAMM BI W/CAD 10/18/2022 11:15 AM 2. MG MM DIG SCREENING MAMM BI W/CAD 05/11/2021 8:05 AM 3. MG MM DIG SCREENING MAMM BI W/CAD 05/10/2020 4:08 PM 4. MG DMSB DIG MAMM-SCREEN ANGIE 02/08/2016 5:08 PM FINDINGS: MAMMOGRAPHY: Breast composition: There are scattered areas of fibroglandular density. Mass: None. Architectural distortion: No new or suspicious architectural distortion. Calcifications: No new or suspicious calcifications are present Asymmetric density: No new or suspicious asymmetric density is present Skin thickening: None. Axillary adenopathy: None. IMPRESSION: No mammographic evidence of malignancy. Recommend annual screening mammography unless otherwise clinically indicated. ASSESSMENT: BI-RADS category 1: Negative
[2023-11-08] MEDS: ALBUTEROL 0.083% 2.5 MG/3 ML NEB IH (14:40)
== END 2023-11-08 23:59 ==
PROVIDERS: PCP Nurse Practitioner Family; Visit Provider Nurse Practitioner Family
DX: R06.02 Shortness of breath (principal); Z12.31 Encounter for screening mammogram for malignant neoplasm of breast
CPT/HCPCS: 77063; 77067; 94060; 94726; 94729

== ENCOUNTER 2023-11-28 09:00 | Outpatient (POV) | payer OTHER, SELFPAY ==
[2023-11-28 09:26] VITALS: BP 116/76; PULSE 87; RESP 20; O2SAT 96; BMI 37.5
--- NOTE | 2023-11-28 12:16 | EXP.PAIN.SOA ---
[facility] Pain Management SOAP Note Subjective:: Patient is a pleasant 53-year-old female who presents today for follow-up and medication refill. She rates her pain today a 5 out of 10. She does state that today a lot of her pain is in her low back as well as her neck with radiating symptoms into her bilateral upper extremities. She does describe this as a aching sensation with numbness and tingling into her arms and hands. She does also states she has been experiencing worsening headache due to this pain. Patient does state that she has not been back to our clinic since her intrathecal pain pump trial due to having a mini stroke. Patient states that she did end up having to see multiple providers and was admitted even to however they were never able to why she had this occur. Patient states that they never did put her on any blood thinners but did add a 81 mg aspirin.She does state the pain interferes with her ability perform activities of daily living. She has had prior injections in the past that did not provide significant relief and she does state she is also interested in this option. Patient did have 100% improvement on the day of her intrathecal pain pump trial and she does state today she would like to proceed forward with this plan of care. Patient states when she had the trial it was amazing and she did feel like she had more quality of life. Patient does state that she also needs refills on her prior medication. Patient was being prescribed Flexeril, meloxicam 7.5 mg daily, [place] 5 mg twice a day and gabapentin 300 mg at night. Patient states that her primary care did take over the Flexeril and that she is not doing the meloxicam anymore. She does state that the [place] and the gabapentin have helped and had no side effects. Patient has also been prescribed compounded cream in the past. Her Leno has been reviewed and is appropriate. Review of Systems: General: No recent weight changes, no fever, no sleep disturbances Respiratory: No cough, no shortness of air, no recurring pulmonary infections Cardiovascular/peripheral vascular: No chest pain, no palpitations, no edema, no shortness of breath Gastrointestinal: No new onset incontinence, normal bowel movements reported Genitourinary: No new onset incontinence Musculoskeletal: Low back pain Psychiatric: [Normal mood/affect] Neurological: [Denies weakness in extremities], [denies balance issues] Objective:: Physical Exam: General: Alert and oriented x3, no acute distress, pleasant and cooperative Lungs: Respirations even and unlabored, symmetrical chest expansion Eyes: PERRL Musculoskeletal: Flexion and extension of cervical [spine] somewhat guarded secondary to pain, [antalgic gait noted] positive Spurling's test Neurological: Speech clear, no gross sensory deficit Assessment:: Degenerative disc disease of lumbar spine with lumbar radiculopathy symptoms, myofascial pain, degenerative disc disease of cervical spine with cervical radiculopathy symptoms, cervical spinal stenosis, headaches Plan:: Patient is experiencing worsening pain in her neck with radiating numbness and tingling to her upper extremities. Patient had a positive Spurling's test and limited range of motion of her cervical spine during today's visit. I have discussed with the patient that she may benefit from a cervical epidural steroid injection. Risk and benefits were discussed with patient and she would like to proceed forward with this plan of care. Patient is not on any blood thinners. I have also reviewed over the risk and benefits of the intrathecal pain pump implant and she would like to proceed forward with this plan of care. Due to her stroke that she did have back in June we will still reach out to Dr. Tellez's office and confirm that they have no contraindications for this procedure. I will refill the patient's [place] 5 mg twice a day and gabapentin 300 mg at night and provide a 1 month supply of this medication. Patient has been counseled that this medication will be discontinued of the [place] once she is implanted with her pain pump. She states that she is agreeable with this plan of care. Patient will be scheduled for a NATALIE C6 or C7 under fluoroscopy and also submitted for implantation of the intrathecal pain pump. Patient has tried and failed conservative therapies including oral medications, heat and ice, topicals, physical therapy, at home stretching exercise for longer than 6 weeks, injection therapy. Risks and benefits of the medication have been explained in detail to the patient. The patient does understand the risk of dependence on the medication when given over a prolonged period. Patient has been advised of risks of oversedation with the prescribed medication. Narcan has been offered to the paitent in the event of oversedation. Patient has been advised that a family member should also be educated regarding administration of Narcan. The patient has been advised to consult with his/her primary care provider and pharmacist regarding drug-drug interaction of medications currently prescribed. Patient has been prescribed a controlled substance after being counseled on the medication, medication safety, and possible side effects. Opioid contract was reviewed and signed by the patient, and that they have agreed to all of the terms set forth by our compliance program. Patient has been instructed to contact the clinic with any concerns before the next appointment. Dr. Barragan has reviewed this note and agrees with this plan of care. This note was dictated using voice recognition software and make contain errors or omissions. [facility] Disclaimer: The information contained in this section may have been updated after the patient was seen, as this information can be updated by other users. Medical History Abnormal electrocardiogram [ECG] [EKG] Abnormal result of cardiovascular function study Back pain with history of spinal surgery Chest pain Edema of both lower extremities Elevated left ventricular end-diastolic pressure (LVEDP) Family history of ischemic heart disease (IHD) HLD (hyperlipidemia) Newly diagnosed diabetes REINA (obstructive sleep apnea) Mild to moderate REINA diagnosed November 2020. Symptomatic improvement with CPAP, currently noncompliant Osteoarthritis of feet, bilateral Palpitations SOB (shortness of breath) on exertion Typical angina Surgical History History of back surgery History of bilateral hip replacements History of partial hysterectomy has ovaries History of tonsillectomy Hx of foot surgery left screw Hx of total hip arthroplasty right Family History Other Cancer Coronary artery disease Diabetes Family history of diabetes mellitus type II Family history of hyperlipidemia Family history of hypothyroidism Family history of stroke Heart attack Social History Smoking Status: Unknown if ever smoked smoking status start date: 05/01/23 alcohol intake: never substance use type: denies use current occupational status: other Travel in the last 8 weeks: None household members: significant other housing: house lives independently: Yes marital status: single education level: high school service: No 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
== END 2023-11-28 23:59 | disposition home or self-care (01) ==
PROVIDERS: PCP Nurse Practitioner Family; Visit Provider Nurse Practitioner Family
DX: M51.16 Intervertebral disc disorders with radiculopathy, lumbar region (principal); M79.10 Myalgia, unspecified site; M50.123 Cervical disc disorder at C6-C7 level with radiculopathy; M48.02 Spinal stenosis, cervical region; R51.9 Headache, unspecified
CPT/HCPCS: 99212; G0463

== ENCOUNTER 2023-12-02 08:50 | Emergency (ER) | payer OTHER, SELFPAY ==
[2023-12-02 09:05] VITALS: BP 121/81; PULSE 93; RESP 19; TEMP 36.7; O2SAT 96; BMI 40.4
--- NOTE | 2023-12-02 09:26 | EXP.UTC ---
Discharge Plan Disposition Patient Disposition: Home, Self-Care Condition: Good Prescriptions Prescriptions: New benzonatate 100 mg capsule 100 mg PO TID PRN (Reason: cough) Qty: 30 0RF amoxicillin-pot clavulanate 875-125 mg Tablet 1 tab PO Q12H Qty: 20 0RF albuterol sulfate [Proventil HFA] 90 mcg/actuation HFA aerosol inhaler 1 - 2 puff inhalation Q4-6H PRN (Reason: shortness of breath or wheezing) Qty: 8.5 0RF guaifenesin [Mucinex] 600 mg tablet extended release 12hr 1,200 mg PO BID PRN (Reason: cough) Qty: 20 0RF No Action famotidine 40 mg tablet 40 mg PO DAILY montelukast 10 mg tablet 10 mg PO HS dapagliflozin propanediol [Farxiga] 5 mg tablet 5 mg PO DAILY cyclobenzaprine 10 mg tablet 10 mg PO HS aspirin 81 mg tablet,delayed release (DR/EC) 81 mg PO DAILY cholecalciferol (vitamin D3) 25 mcg (1,000 unit) tablet 25 mcg PO DAILY rosuvastatin 40 mg tablet See Rx Instructions .ROUTE .COMPLEX Qty: 90 4RF Dose Instruction: TAKE ONE TABLET BY MOUTH ONCE A DAY Rx Instructions: TAKE ONE TABLET BY MOUTH ONCE A DAY gabapentin 300 mg capsule 300 mg PO HS Qty: 30 0RF venlafaxine 150 mg capsule,extended release 24hr 150 mg PO DAILY losartan 100 mg tablet 100 mg PO DAILY varenicline 1 mg tablet 1 mg PO DAILY cyanocobalamin (vitamin B-12) 1,000 mcg/mL solution 1,000 mcg IM QMONTH primidone 50 mg tablet 50 mg PO BID Referrals Follow up/Referrals: Giulia Dunlap APRN [Primary Care Provider] - See instructions Activity Restrictions/Add. Instructions Additional Instructions/Restrictions: Start antibiotic today. Be sure to complete entire prescription even if feeling better Monitor temp. Tylenol every 4 hours as needed and / or ibuprofen every 6 hours as needed ( As long as your primary care physician has told you that it ok to take both. For fever/aches/pains ER if no less than 101 despite Tylenol or Motrin Humidifier/vaporizer or hot steamy shower Inhaler every 4-6 hours as needed like we discussed. If unsure how to use it, ask pharmacist to demonstrate how. Should help open airways and improve cough, wheezing, and shortness of breath Mucinex during the day for your cough and cough suppressant only at night. Be sure to drink lots of water. Insurance may not cover a prescriptions for mucinex. Might be cheaper to get 400mg tablets and take 2 tablet in the morning, mid-day and evening with lots of water. *Tessalon Perles will not cause drowsiness but use at bedtime to help stop cough so that you may get some rest. Follow up IMMEDIATELY for new or worsening of symptoms OR no noticeable improvement over the next 48-72 hours. 911 immediately for any life threatening symptoms such as chest pain or difficulty breathing Clinical Impressions Clinical Impression: Bronchitis Instructions Patient Instructions: DI for Chronic Bronchitis, Albuterol Oral Inhalation Discharge ED Provider: Romy Tidwell [facility] [place] General Stated complaint: chest congestion, cough Mode of Arrival: Ambulatory Source of Information: Patient Limitations: No Limitations Time Seen by Provider: 12/02/23 09:26 Description of Symptoms (Recalled from Triage Doc. by RN): PATIENT C/O DRY COUGH AND CHEST CONGESTION X 1 WEEK HEENT Symptoms (Recalled from RN notes): No Resp Symptoms (Recalled from RN notes): Yes Skin Symptoms (Recalled from RN notes): No MS Symptoms (Recalled from RN notes): No Functional Status (Recalled from RN notes): WNL History of Present Illness Provider Complaint: Patient states that for the last week she has been having chest congestion and cough States cough is mostly dry States that she has had some wheezing at times and is out of her inhaler States that she is an everyday smoker that is currently trying to quit Related Data Home Medications Medication Instructions Recorded Confirmed losartan 100 mg tablet 100 mg PO DAILY 09/07/23 12/02/23 varenicline 1 mg tablet 1 mg PO DAILY 09/07/23 12/02/23 venlafaxine 150 mg 150 mg PO DAILY 09/07/23 12/02/23 capsule,extended release 24 hr cyanocobalamin (vitamin B-12) 1,000 mcg IM QMONTH 10/09/23 12/02/23 1,000 mcg/mL injection solution famotidine 40 mg tablet 40 mg PO DAILY 10/09/23 12/02/23 montelukast 10 mg tablet 10 mg PO HS 10/09/23 12/02/23 primidone 50 mg tablet 50 mg PO BID 10/09/23 12/02/23 dapagliflozin propanediol 5 mg 5 mg PO DAILY 11/04/23 12/02/23 tablet (Farxiga) aspirin 81 mg tablet,delayed 81 mg PO DAILY 12/02/23 12/02/23 release cholecalciferol (vitamin D3) 25 25 mcg PO DAILY 12/02/23 12/02/23 mcg (1,000 unit) tablet cyclobenzaprine 10 mg tablet 10 mg PO HS 12/02/23 12/02/23 Previous Rx's Medication Instructions Recorded rosuvastatin 40 mg tablet See Rx Instructions .Route 09/30/23 .COMPLEX #90 tabs gabapentin 300 mg capsule 300 mg PO HS #30 caps 11/28/23 albuterol sulfate 90 mcg/actuation 1 - 2 puff inhalation Q4-6H PRN 12/02/23 aerosol inhaler (Proventil HFA) shortness of breath or wheezing #8.5 grams amoxicillin 875 mg-potassium 1 tab PO Q12H #20 tabs 12/02/23 clavulanate 125 mg tablet benzonatate 100 mg capsule 100 mg PO TID PRN cough #30 caps 12/02/23 guaifenesin 600 mg tablet, 1,200 mg (2 x 600 mg) PO BID PRN 12/02/23 extended release 12 hr (Mucinex) cough #20 tabs Allergies Allergy/AdvReac Type Severity Reaction Status Date / Time No Known Allergies Allergy Verified 11/04/23 13:54 Worker's Comp Is this a Worker's Comp case?: No [facility] Disclaimer: The information contained in this section may have been updated after the patient was seen, as this information can be updated by other users. Medical History HLD (hyperlipidemia) Back pain with history of spinal surgery Chest pain Elevated left ventricular end-diastolic pressure (LVEDP) SOB (shortness of breath) on exertion Family history of ischemic heart disease (IHD) Edema of both lower extremities Abnormal electrocardiogram [ECG] [EKG] Palpitations Typical angina Abnormal result of cardiovascular function study REINA (obstructive sleep apnea) Mild to moderate REINA diagnosed November 2020. Symptomatic improvement with CPAP, currently noncompliant Newly diagnosed diabetes Osteoarthritis of feet, bilateral Surgical History History of bilateral hip replacements History of back surgery Hx of foot surgery left screw Hx of total hip arthroplasty right History of partial hysterectomy has ovaries History of tonsillectomy Family History Other Cancer Coronary artery disease Diabetes Family history of diabetes mellitus type II Family history of hyperlipidemia Family history of hypothyroidism Family history of stroke Heart attack Social History Smoking Status: Unknown if ever smoked smoking status start date: 05/01/23 alcohol intake: never substance use type: denies use current occupational status: other Travel in the last 8 weeks: None household members: significant other housing: house lives independently: Yes marital status: single education level: high school service: No 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 ROS Obtained: Yes All systems reviewed & no additional complaints except as documented and Yes Systems reviewed as appropriate & no additional complaints except as documented Constitutional Constitutional: Reports system reviewed and no additional complaints, except as documented and Reports as per HPI ENT Ears, Nose, Mouth, and Throat: Reports system reviewed and no additional complaints, except as documented, Reports as per HPI and Reports sinus pressure Cardiovascular Cardiovascular: Reports system reviewed and no additional complaints, except as documented, Reports as per HPI and Denies dyspnea Respiratory Respiratory: Reports system reviewed and no additional complaints, except as documented, Reports as per HPI, Denies shortness of breath, Reports chest congestion, Reports cough, Denies dyspnea and Reports wheezing (at times out of her inhaler) Gastrointestinal Gastrointestingal: Reports system reviewed and no additional complaints, except as documented and as per HPI Allergic/Immunologic Allergic/Immunologic: Reports wheezing (at times out of her inhaler) Physical Exam General General appearance: alert and in no apparent distress ENT ENT exam: Present mucous membranes moist Expanded ENT Exam Nose exam: Present sinus tenderness Respiratory Respiratory exam: Present normal lung sounds bilaterally; Absent respiratory distress or wheezes Cardiovascular Cardiovascular exam: Present regular rate, normal rhythm and normal heart sounds Abdominal Exam Abdominal exam: Present soft and normal bowel sounds; Absent distention or tenderness Neurological Exam Neurological exam: Present alert, oriented X3 and normal gait Medical Decision Making [facility] Inquiry Pt receiving controlled substance: No Leno was queried for this patient: No Vital Signs: 12/02/23 09:05 Temperature 98.1 F Temperature Source Oral Pulse Rate [Left Brachial] 93 H Respiratory Rate 19 Blood Pressure [Left Arm] 121/81 Blood Pressure Mean [Left Arm] 94 Blood Pressure Source [Left Arm] Automatic Cuff Blood Pressure Position [Left Arm] Sitting 02 Sat by Pulse Oximetry 96 Oxygen Delivery Method Room Air
[2023-12-02 09:39] VITALS: BP 121/81; PULSE 93; RESP 19; TEMP 36.7; O2SAT 96
== END 2023-12-02 09:47 | disposition home or self-care (01) ==
PROVIDERS: Emergency Provider Nurse Practitioner; PCP Nurse Practitioner Family
DX: J20.9 Acute bronchitis, unspecified (principal); R06.2 Wheezing; R05.9 Cough, unspecified; E78.5 Hyperlipidemia, unspecified; F17.210 Nicotine dependence, cigarettes, uncomplicated
CPT/HCPCS: 99212; 99214; G0463

== ENCOUNTER 2023-12-25 09:07 | Day surgery (SDC) | payer OTHER, SELFPAY ==
[2023-12-23 13:56] VITALS: BMI 38.0
--- NOTE | 2023-12-25 09:13 | CA_ITS ---
APPROVED REPORT EXAM: Comprehensive 2D, Doppler, and color-flow Echocardiogram Budget Manager: Amrita Villa RVT Ht: 5 ft 7 in Wt: 238lbs BSA: 2.18 BP: 114/75 mmHg Indications: CVA,PFO,SOA,PALPS,REINA Procedure After obtaining informed consent, patient underwent transesophageal echo in the [facility]. Type of Sedation : MAC Sedation was administered by Sharon FuNShayna Sedation start time: 12:35 Case end Time: 12:55 Transesophageal probe was inserted and advanced into esophagus without difficulty by Dr. Torin Chowdhury. The JENY was performed without complications. Throughout the procedure, the blood pressure, pulse oximetry, cardiac rhythm, and rate were monitored. The patient tolerated the procedure without adverse effects. Recovery from conscious sedation was uneventful and vital signs were stable. Left Ventricle The left ventricle is normal size. The left ventricular systolic function is normal. The left ventricular ejection fraction is within the normal range. There is increased LV wall thickness. There is normal LV segmental wall motion. LVEF is 55%. Right Ventricle The right ventricle is normal size. The right ventricular systolic function is normal. Atria The left atrium size is normal. The right atrium size is normal. A patent foramen ovale (PFO) is present. Color Doppler demonstrates bidirectional shunt. Agitated saline administration (bubble study) demonstrates presence of bubbles from the RA into the LA through the PFO. The PFO tunnel length measures 1.5 cm. The tunnel width measures 0.18 cm. Aortic Valve The aortic valve is normal in structure. The aortic valve is trileaflet. There is no aortic valvular stenosis. No aortic regurgitation is present. Mitral Valve The mitral valve is normal in structure. No evidence of mitral valve stenosis. Trace mitral regurgitation. Tricuspid Valve The tricuspid valve leaflets are thin and pliable. Trace tricuspid regurgitation. There is insufficient TR jet to estimate RVSP. Great Vessels The aortic root is normal in size. Ascending aorta is normal in caliber. Pericardium There is no pericardial effusion. Other Information Study Quality: Fair Conclusion Normal biventricular systolic function. Presence of PFO with bidirectional interatrial shunt. PFO tunnel length measures 1.5 cm. The tunnel width measures 0.18 cm. In the setting of prior history of young age, prior history of stroke, and RoPE Score (Risk of Paradoxical Embolism) of 4, further evauation for consideration of PFO closure is recommended. Electronically signed by : Suzanne Chowdhury MD 12/29/2023 17:18:02
[2023-12-25 10:08] VITALS: BP 99/60; PULSE 72; RESP 18; TEMP 36.3; O2SAT 95
[2023-12-25] MEDS: LACTATED RINGERS 1000ML 1,000 ML 25 ML IV (10:17)
[2023-12-25 10:22] LABS: Basophils # 0.1 K/mm3 (0-0.2); Basophils % 0.9 % (0.1-2.0); Eosinophils # 0.2 K/mm3 (0.0-0.4); Eosinophils % 1.8 % (0.1-12.0); Hematocrit 41.4 % (37.0-47.0); Hemoglobin 13.5 g/dL (12.2-16.2); Lymphocytes # 3.1 K/mm3 (0.7-4.5); Lymphocytes % 29.6 % (10-50); Mean Corpuscular HGB Conc 32.5 g/dL (31.8-35.4); Mean Corpuscular Volume 89.3 fl (81-99); Mean Platelet Volume 7.2 fl (7.4-10.4); Monocytes # 0.6 K/mm3 (0.1-1.0); Monocytes % 5.4 % (1.7-9.3); Neutrophils # 6.6 K/mm3 (1.8-7.8); Neutrophils % 62.4 % (37.0-80.0); Platelet Count 388 K/mm3 (142-424); Red Blood Count 4.64 M/mm3 (4.20-5.40); Red Cell Distribution Width 14.6 % (11.5-17.5); White Blood Count 10.6 K/mm3 (4.8-10.8)
--- NOTE | 2023-12-25 10:25 | ECG_ITS ---
APPROVED REPORT Exam: Resting ECG HR:68 bpm ECG Measurements Heart Rate 68 AXES ND 155 P 26 QRSd 156 QRS -35 QT 445 T 69 QTc 463 Conclusion SINUS RHYTHM LEFT AXIS DEVIATION [QRS AXIS < -30] LEFT BUNDLE BRANCH BLOCK [120+ ms QRS DURATION, 80+ ms Q/S IN V1/V2, 85+ ms R IN I/aVL/V5/V6] ABNORMAL ECG UNCONFIRMED REPORT Electronically signed by : Giovanny Fernando MD 12/25/2023 17:16:08
[2023-12-25 10:27] LABS: Chloride 101 mmol/L (98-107); Potassium 3.8 mmoL/L (3.5-5.1); Sodium 136 mmol/L (136-145)
[2023-12-25 10:30] LABS: Anion Gap 8.8 mEq/L (5-15); Blood Urea Nitrogen 12 mg/dl (7-17); Carbon Dioxide 30 mmol/L (22.0-30.0); Creatinine Clearance Estimated 191 mL/min (50-200); Estimated Glomerular Filt Rate 105 ml/min (>60); GFR (African American) 127 ML/MIN (>60)
[2023-12-25 10:31] LABS: Calcium 9.3 mg/dl (8.4-10.2); Glucose 132 mg/dl (74-100)
[2023-12-25 10:39] LABS: INR 0.97 (0.9-1.1); Prothrombin Time 10.5 seconds (10.1-12.5)
--- NOTE | 2023-12-25 11:07 | EXP.ANES.CKL ---
[facility] Disclaimer: The information contained in this section may have been updated after the patient was seen, as this information can be updated by other users. Medical History Cryptogenic stroke HLD (hyperlipidemia) Back pain with history of spinal surgery Chest pain Elevated left ventricular end-diastolic pressure (LVEDP) SOB (shortness of breath) on exertion Family history of ischemic heart disease (IHD) Edema of both lower extremities Abnormal electrocardiogram [ECG] [EKG] Palpitations Typical angina Abnormal result of cardiovascular function study REINA (obstructive sleep apnea) Newly diagnosed diabetes Osteoarthritis of feet, bilateral Surgical History History of bilateral hip replacements History of back surgery Hx of foot surgery Hx of total hip arthroplasty History of partial hysterectomy History of tonsillectomy Family History Other Cancer Coronary artery disease Diabetes Family history of diabetes mellitus type II Family history of hyperlipidemia Family history of hypothyroidism Family history of stroke Heart attack Social History Smoking Status: Never smoker smoking status start date: 05/01/23 alcohol intake: never substance use type: denies use current occupational status: disabled Travel in the last 8 weeks: None household members: significant other housing: house lives independently: Yes marital status: single education level: high school service: No 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 [facility] Anesthesia Checklist Patient Identification Patient Identification: Arm Band and Verbal (Name & ) Structural Data Admitted From: Home Planned Operative Procedure/s: JENY Consent for Planned Operative Procedure(s) Verified: Yes NPO Status Verified Time NPO: 00:00 Chart Verification Results Verified: CBC, BMP and ECG Additional verifications Anesthesia Reactions: No Hx Blood Transfusions: No Blood Transfusion Reaction: No Airway Assessment Mallampati Score:: Class III C-Spine Mobility Assessed: Yes TMJ Mobility Assessed: Yes Dentition: Dentures-poor fitting Neurological Assessment Level of Consciousness: Awake Hx Seizures: No Numbness or tingling in extremities: Yes Anesthesia Plan Anesthesia Risk discussed: Yes Anesthesia Plan: Verified ASA Class: III Anesthesia Type: MAC
[2023-12-25 11:34] VITALS: O2SAT 99
[2023-12-25 12:08] VITALS: BP 114/80; PULSE 101; RESP 14; TEMP 36.4; O2SAT 92
[2023-12-25 12:18] VITALS: BP 116/83; PULSE 94; RESP 16; O2SAT 92
[2023-12-25 12:28] VITALS: BP 109/62; PULSE 89; RESP 16; O2SAT 92
[2023-12-25 12:38] VITALS: BP 123/66; PULSE 84; RESP 16; TEMP 36.6; O2SAT 94
[2023-12-25 13:53] LABS: POC Glucose,Bedside 131 (70-110)
== END 2023-12-25 12:38 | disposition home or self-care (01) ==
PROVIDERS: PCP Nurse Practitioner Family; Visit Provider Internal Medicine
DX: R94.31 Abnormal electrocardiogram [ECG] [EKG] (principal); Z79.899 Other long term (current) drug therapy; Q21.12 Patent foramen ovale; E78.5 Hyperlipidemia, unspecified; I10 Essential (primary) hypertension; G47.33 Obstructive sleep apnea (adult) (pediatric); R06.02 Shortness of breath; E11.9 Type 2 diabetes mellitus without complications; Z79.84 Long term (current) use of oral hypoglycemic drugs; Z86.73 Personal history of transient ischemic attack (TIA), and cerebral infarction without residual deficits
CPT/HCPCS: 80048; 82962; 85025; 85610; 93005; 93270; 93312; 93319

== ENCOUNTER 2023-12-31 09:08 | Day surgery (SDC) | payer OTHER, SELFPAY ==
[2023-12-31] MEDS: IOPAMIDOL-200 (41%);10ML VIAL 10 ML IV (09:30)
[2023-12-31 09:37] VITALS: BP 121/70; PULSE 84; RESP 16; TEMP 36.7; O2SAT 97; BMI 38.0
[2023-12-31 09:38] VITALS: BP 139/95; PULSE 69; RESP 20; O2SAT 95
[2023-12-31] MEDS: methylPREDNISolone ACETATE 80MG/ML VIAL 80 MG (09:38)
[2023-12-31 09:39] VITALS: BP 139/95; PULSE 70; RESP 20; O2SAT 95
[2023-12-31 09:42] VITALS: BP 143/79; PULSE 84; RESP 16; O2SAT 97
--- NOTE | 2023-12-31 09:43 | P.PCN_ITS ---
Procedure Date: 12/31/23 Time: 09:40 Anesthesiologist:: Mello Manzo CRNA Complications:: None Pre-procedure Diagnosis:: Degenerative cervical spine multilevels. Cervical radiculopathy. Post-procedure Diagnosis:: Same. Indications for Procedure:: Patient is very pleasant 53-year-old female who comes our clinic today for cervical epidural steroid injection. Patient has had success in terms of her cervical neck pain as well as bilateral arm radiculopathy with cervical epidural steroid injection in the past. She rates her pain today 8/10. Her main complaint is cervical neck pain that she describes as constant, dull, aching. Also, bilateral arm radicular symptoms at times. Procedure Details:: Procedure:Cervical epidural steroid injection Informed consent was obtained and the risks and benefits of the procedure were explained to the patient. The patient was taken to the procedure room and noninvasive monitors placed, including noninvasive blood pressure cuff and pulse oximeter. The neck was prepped using Chloraprep as a cleansing solution. The C6- C7 interspace was viewed using fluroscopy. The skin and subcutaneous tissues were anesthetized using lidocaine 1.5% and a 25-gauge needle. After this an 18- gauge Touhy epidural needle was placed into the C6-C7 interspace under fluroscopy guidance and advanced using loss of resistance to air until the epidural space was encountered. After confirmation of needle placement in the epidural space using contrast dye, a solution containing normal saline, 2 mL and Depo-Medrol 80 mg was incrementally injected into the cervical epidural space.~ The patient tolerated the procedure well with no complications. The patient was observed in the Pain Clinic and then discharged home neurologically intact. Plan and Disposition:: Patient was discharged without incident.
== END 2023-12-31 09:42 | disposition home or self-care (01) ==
PROVIDERS: PCP Nurse Practitioner Family; Visit Provider Nurse Anesthetist, Certified Registered
DX: M50.123 Cervical disc disorder at C6-C7 level with radiculopathy (principal)
CPT/HCPCS: 62321; J1010; Q9966

== ENCOUNTER 2024-01-01 15:18 | Outpatient (CLI) | payer OTHER, SELFPAY | END 2024-01-01 23:59 | disposition home or self-care (01) | LOC: RT 15:19 | PROVIDERS: PCP Nurse Practitioner Family; Visit Provider Nurse Practitioner Family | DX: G47.33 Obstructive sleep apnea (adult) (pediatric) (principal); G47.10 Hypersomnia, unspecified | CPT/HCPCS: 94762 ==

== ENCOUNTER 2024-01-03 12:22 | Outpatient (CLI) | payer OTHER, SELFPAY | END 2024-01-03 23:59 | disposition home or self-care (01) | LOC: RT 12:22 | PROVIDERS: PCP Nurse Practitioner Family; Visit Provider Nurse Practitioner Family | DX: I63.9 Cerebral infarction, unspecified (principal) | CPT/HCPCS: 93270 ==

== ENCOUNTER 2024-01-13 11:37 | Outpatient (POV) | payer OTHER, SELFPAY ==
[2024-01-13 11:47] VITALS: BP 144/72; PULSE 85; RESP 18; O2SAT 98; BMI 38.0
--- NOTE | 2024-01-13 11:56 | A.OFFVIS_ITS ---
[facility] Pain Management SOAP Note Subjective:: Patient is a pleasant 53-year-old female who presents today for follow-up of cervical epidural steroid injection C6-C7 on 12/31/2023. Patient states that she has had at least 50% improvement of her overall neck pains and that the radicular symptoms are better. Patient states that the pain is not as severe and does allow her to be more functional. She rates her neck pain a 4 out of 10 however states that her overall back pain is an 8 out of 10. Patient does state the pain in her back interferes with her ability perform activity of daily living such as cooking and cleaning. Patient describes it as a aching, throbbing sensation that is worse with certain movements such as bending and t wisting. Patient in the past was an appropriate candidate for the pump trial and did end up getting 100% relief however her insurance denied having it implanted. Patient states that she would still like to proceed forward with this option if any way possible. Patient is currently prescribed Flexeril, meloxicam 7.5 mg daily, Grandin 5 mg twice a day and gabapentin 300 mg at night. Patient denies any side effects from these medications. Her Leno has been reviewed and is appropriate. Review of Systems: General: No recent weight changes, no fever, no sleep disturbances Respiratory: No cough, no shortness of air, no recurring pulmonary infections Cardiovascular/peripheral vascular: No chest pain, no palpitations, no edema, no shortness of breath Gastrointestinal: No new onset incontinence, normal bowel movements reported Genitourinary: No new onset incontinence Musculoskeletal: Low back pain Psychiatric: [Normal mood/affect] Neurological: [Denies weakness in extremities], [denies balance issues] Objective:: Physical Exam: General: Alert and oriented x3, no acute distress, pleasant and cooperative Lungs: Respirations even and unlabored, symmetrical chest expansion Eyes: PERRL Musculoskeletal: Flexion and extension of lumbar [spine] somewhat guarded secondary to pain, [antalgic gait noted] positive Kemps test Neurological: Speech clear, no gross sensory deficit T11-T12: Mild degenerative disc disease. T12-L1: Unremarkable. L1-L2: Mild facet and ligamentum hypertrophy. L2-L3: Facet and ligamentum hypertrophic change with mild bilateral lateral recess narrowing slightly greater on the left and with mild right and moderate left foraminal narrowing. L3-L4: Degenerative disc disease with bulging disc. There is a broad based left paracentral foraminal and lateral disc protrusion. This is causing left-sided lateral recess and foraminal narrowing impinging upon the left L4 nerve root and also the L3 nerve root. There is moderate to severe facet and ligamentum hypertrophy at this level with canal stenosis min also with moderate right-sided lateral recess and foraminal narrowing. There is also impingement upon the exiting left L3 nerve root. L4-5: Mild degenerative disc disease. 4 mm anterolisthesis of L4 with bulging disc along with severe facet and ligamentum hypertrophic change with severe canal stenosis and severe bilateral lateral recess and foraminal narrowing right greater than left with impingement upon the exiting L4 nerve root on the right. L5-S1: Mild degenerative disc disease with bulging disc with moderate to severe facet and ligamentum hypertrophy with mild bilateral foraminal narrowing. The bulging disc is slightly eccentric toward the right. No extruded herniated disc are evident. IMPRESSION: Assessment:: Degenerative disc disease of lumbar spine with lumbar radiculopathy symptoms, myofascial pain, degenerative disc disease of cervical spine with cervical radiculopathy symptoms lumbar facet arthropathy, cervical spinal stenosis, headaches Plan:: Patient continues to experience chronic pain throughout her low back with limited range of motion and a positive Kemps test. I have discussed with patient that she may benefit from a lumbar medial branch block bilaterally. Risk and benefits were discussed with the patient and she would like to proceed forward with this plan of care. Patient is not on any blood thinners. I have counseled the patient if she does have significant relief that we can look at repeating this injection with the plan to do a lumbar RFA at a later date. Patient acknowledges understanding and agrees with this plan of care. I have also discussed with the patient that I will order updated imaging starting with x-ray of her low back and also send a referral to Dr. Delgado's office for additional evaluation of her cervical and lumbar spine and possible surgical intervention. Patient has tried and failed conservative therapy such as oral medication, heat and ice, topicals, physical therapy, continued at home exercising and stretching for longer than 6 weeks. Patient will be scheduled for a lumbar medial branch block bilaterally L3-L4 and L4-L5 under fluoroscopy. Patient has been instructed to contact the clinic with any concerns before the next appointment. Dr. Barragan has reviewed this note and agrees with this plan of care. This note was dictated using voice recognition software and make contain errors or omissions. [facility] Disclaimer: The information contained in this section may have been updated after the marta ent was seen, as this information can be updated by other users. Medical History Cryptogenic stroke HLD (hyperlipidemia) Back pain with history of spinal surgery Chest pain Elevated left ventricular end-diastolic pressure (LVEDP) SOB (shortness of breath) on exertion Family history of ischemic heart disease (IHD) Edema of both lower extremities Abnormal electrocardiogram [ECG] [EKG] Palpitations Typical angina Abnormal result of cardiovascular function study REINA (obstructive sleep apnea) Mild to moderate REINA diagnosed November 2020. Symptomatic improvement with CPAP, poor compliance Newly diagnosed diabetes Osteoarthritis of feet, bilateral Surgical History History of bilateral hip replacements History of back surgery Hx of foot surgery left screw Hx of total hip arthroplasty right History of partial hysterectomy has ovaries History of tonsillectomy Family History Other Cancer Coronary artery disease Diabetes Family history of diabetes mellitus type II Family history of hyperlipidemia Family history of hypothyroidism Family history of stroke Heart attack Social History Smoking Status: Never smoker smoking status start date: 05/01/23 alcohol intake: never substance use type: denies use current occupational status: other Travel in the last 8 weeks: None household members: significant other housing: house lives independently: Yes marital status: single education level: high school service: No 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
== END 2024-01-13 23:59 | disposition home or self-care (01) ==
PROVIDERS: PCP Nurse Practitioner Family; Visit Provider Nurse Practitioner Family
DX: M51.16 Intervertebral disc disorders with radiculopathy, lumbar region (principal); M79.10 Myalgia, unspecified site; M50.10 Cervical disc disorder with radiculopathy, unspecified cervical region; M47.896 Other spondylosis, lumbar region; M48.02 Spinal stenosis, cervical region; R51.9 Headache, unspecified
CPT/HCPCS: 99212; G0463

== ENCOUNTER 2024-01-13 13:12 | Outpatient (CLI) | payer OTHER, SELFPAY ==
--- NOTE | 2024-01-13 13:17 | XR_ITS ---
FINAL REPORT CLINICAL HISTORY: LBP...surgery in 2020 COMPARISON: None FINDINGS: 6 views of the lumbar spine were obtained. There is no evidence of fracture or dislocation. There has been fusion from L3 through the upper sacrum and pelvis. L4 and L5 laminectomies have been performed as well. Bilateral hip arthroplasties are also noted. Mild degenerative change is present in the upper lumbar spine. No paraspinous soft tissue abnormalities identified. IMPRESSION: Fusion from L3 through the upper sacrum, L4 and L5 laminectomies, and bilateral hip arthroplasties are all present. Mild degenerative change in the upper lumbar spine. Reviewed, Interpreted and Dictated by Oc Sibley III, MD Transcribed by Taylor Hansen Authenticated and [facility]
== END 2024-01-13 23:59 | disposition home or self-care (01) ==
LOC: RAD 13:13
PROVIDERS: PCP Nurse Practitioner Family; Visit Provider Nurse Practitioner Family
DX: M54.50 Low back pain, unspecified (principal); G89.29 Other chronic pain
CPT/HCPCS: 72110

== ENCOUNTER 2024-02-04 10:06 | Day surgery (SDC) | payer OTHER, SELFPAY ==
[2024-02-04 10:27] VITALS: BP 114/67; PULSE 82; RESP 16; TEMP 36.4; O2SAT 97; BMI 36.5
[2024-02-04] MEDS: LIDOCAINE 1% 5ML PF VIAL 5 ML (10:35)
[2024-02-04] MEDS: BUPIVACAINE 0.25% 10ML INJ 25 MG IJ (10:35)
[2024-02-04 10:36] VITALS: BP 126/79; PULSE 69; RESP 18; O2SAT 95
[2024-02-04] MEDS: methylPREDNISolone ACETATE 80MG/ML VIAL 80 MG (10:36)
[2024-02-04 10:37] VITALS: BP 126/79; PULSE 61; RESP 18; O2SAT 95
[2024-02-04 10:42] VITALS: BP 141/91; PULSE 67; RESP 18; O2SAT 98
--- NOTE | 2024-02-04 11:05 | P.PCN_ITS ---
Procedure Date: 02/04/24 Time: 10:20 Anesthesiologist:: Mello Manzo CRNA Complications:: None Pre-procedure Diagnosis:: Degenerative disc lumbar spine multilevels. Lumbar radiculopathy. Lumbar postlaminectomy syndrome. Lumbar spondylosis. Multilevel lumbar facet arthropathy. Post-procedure Diagnosis:: Same. Indications for Procedure:: Patient is a very pleasant 53-year-old female comes our clinic today for lumbar medial branch blocks/facet injection L3-4, L4-5 bilaterally. Patient is status post extensive lumbar fusion with Dr. Delgado several years ago. She is continue to have low back pain that she describes as constant, dull, aching. She reports pain intensifies with standing and or sitting for any length of time. She rates her pain 7/10. Procedure Details:: Informed consent was obtained and the risk and benefits of the procedure was explained to the patient. Patient was taken to the procedure room where noninvasive monitors were placed, including noninvasive blood pressure cuff as well as pulse oximeter. The area over the lumbar spine was cleansed using chlorhexidine as a cleansing solution. I anesthetized the skin and subcutaneous tissues with 1% Lidocaine. I placed 22-gauge spinal needles into the facet joint/ medial branches of [L3-L4, L4-L5 bilaterally. Needle placement was confirmed with fluoroscopy. After confirmation of needle placement, each site was injected with 1 mL of 1% lidocaine and 0.25 % Marcaine and 10 mg of Depo- Medrol. A total of 80 mg of depo medrol was used for bilateral medial branch blocks of [L3-L4, L4-L5 bilaterally. Patient tolerated the procedure without difficulty. There were no complications. Plan and Disposition:: Patient was discharged without incident.
== END 2024-02-04 10:45 | disposition home or self-care (01) ==
PROVIDERS: PCP Nurse Practitioner Family; Visit Provider Nurse Anesthetist, Certified Registered
DX: M47.896 Other spondylosis, lumbar region (principal); M96.1 Postlaminectomy syndrome, not elsewhere classified; M51.16 Intervertebral disc disorders with radiculopathy, lumbar region
CPT/HCPCS: 64493; 64494; J1010

== ENCOUNTER 2024-02-12 11:06 | Outpatient (POV) | payer OTHER, SELFPAY ==
--- NOTE | 2024-02-12 11:09 | A.OFFVIS_ITS ---
[facility] Pain Management SOAP Note Subjective:: Patient is a pleasant 53-year-old female who presents today for follow-up of lumbar medial branch block L3-L4 and L4-L5 bilaterally on 02/04/2024. Patient rates her pain today a 6 out of 10. She does state that she had at least 75% relief following these injections and that they did last more than a week. She does state that part of her pain that came back is due to having to pull and tug to help move her mom. She states that she has been hospitalized and is now on hospice. Patient feels like having to do these extra activities and movements aggravated her overall pain symptoms. She does state while the injection was working well she did feel overall functional with decreased pain symptoms. Patient does state her pain today is more of an aching, throbbing sensation that stays in her back and denies any radiating symptoms into her legs. She does state the pain is frequently aggravated with motions of bending, twisting or lifting. Patient does state the pain interferes with her ability to perform activities of daily living such as cooking and cleaning. Patient does state that she is very interested in repeating her prior injections because they did work so well. Patient in the past was an appropriate candidate for the pump trial and did end up getting 100% relief however her insurance denied having it implanted. Patient states that she would still like to proceed forward with this option if any way possible. Patient is currently prescribed Flexeril, meloxicam 7.5 mg daily, [place] 5 mg twice a day and gabapentin 300 mg at night. Patient denies any side effects from these medications. Her Leno has been reviewed and is appropriate. Review of Systems: General: No recent weight changes, no fever, no sleep disturbances Respiratory: No cough, no shortness of air, no recurring pulmonary infections Cardiovascular/peripheral vascular: No chest pain, no palpitations, no edema, no shortness of breath Gastrointestinal: No new onset incontinence, normal bowel movements reported Genitourinary: No new onset incontinence Musculoskeletal: Low back pain Psychiatric: [Normal mood/affect] Neurological: [Denies weakness in extremities], [denies balance issues] Objective:: Physical Exam: General: Alert and oriented x3, no acute distress, pleasant and cooperative Lungs: Respirations even and unlabored, symmetrical chest expansion Eyes: PERRL Musculoskeletal: Flexion and extension of lumbar [spine] somewhat guarded secondary to pain, [antalgic gait noted] positive Kemps test Neurological: Speech clear, no gross sensory deficit Assessment:: Degenerative disc disease of lumbar spine with lumbar radiculopathy symptoms, myofascial pain, degenerative disc disease of cervical spine with cervical radiculopathy symptoms lumbar facet arthropathy, cervical spinal stenosis, headaches Plan:: Patient did have significant improvement throughout her low back following her first diagnostic lumbar medial branch blocks with 75% relief lasting over a week. Patient is back to her baseline with worsening pain there in her low back and a positive Kemps test. I have reviewed over the risk and benefits of repeat injections and she would like to proceed forward. Patient is not on any blood thinners. Patient has continued to try conservative treatment between injections with exercising at home and stretching with minimal relief. I have discussed with the patient if she does get significant relief with her second set of lumbar medial branch blocks we will proceed forward with the lumbar RFA at a later date. Patient is agreeable with this option. Patient will be scheduled for a lumbar medial branch block bilaterally L3-L4 and L4-L5 under fluoroscopy. I will also refill the patient's meloxicam, Flexeril, [place] and gabapentin and provide a 1 month supply of these medications. Risks and benefits of the medication have been explained in detail to the patient. The patient does understand the risk of dependence on the medication when given over a prolonged period. Patient has been advised of risks of oversedation with the prescribed medication. Narcan has been offered to the paitent in the event of oversedation. Patient has been advised that a family member should also be educated regarding administration of Narcan. The patient has been advised to consult with his/her primary care provider and pharmacist regarding drug-drug interaction of medications currently prescribed. Patient has been prescribed a controlled substance after being counseled on the medication, medication safety, and possible side effects. Opioid contract was reviewed and signed by the patient, and that they have agreed to all of the terms set forth by our compliance program. Patient has been instructed to contact the clinic with any concerns before the next appointment. Dr. Barragan has reviewed this note and agrees with this plan of care. This note was dictated using voice recognition software and make contain errors or omissions. [facility] Disclaimer: The information contained in this section may have been updated after the patient was seen, as this information can be updated by other users. Medical History Cryptogenic stroke HLD (hyperlipidemia) Back pain with history of spinal surgery Chest pain Elevated left ventricular end-diastolic pressure (LVEDP) SOB (shortness of breath) on exertion Family history of ischemic heart disease (IHD) Edema of both lower extremities Abnormal electrocardiogram [ECG] [EKG] Palpitations Typical angina Abnormal result of cardiovascular function study REINA (obstructive sleep apnea) Mild to moderate REINA diagnosed November 2020. Symptomatic improvement with CPAP, poor compliance Newly diagnosed diabetes Osteoarthritis of feet, bilateral Surgical History History of bilateral hip replacements History of back surgery Hx of foot surgery left screw Hx of total hip arthroplasty right History of partial hysterectomy has ovaries History of tonsillectomy Family History Other Cancer Coronary artery disease Diabetes Family history of diabetes mellitus type II Family history of hyperlipidemia Family history of hypothyroidism Family history of stroke Heart attack Social History Smoking Status: Never smoker smoking status start date: 05/01/23 alcohol intake: never substance use type: denies use current occupational status: other Travel in the last 8 weeks: None household members: significant other housing: house lives independently: Yes marital status: single education level: high school service: No 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
[2024-02-12 11:24] VITALS: BP 139/87; PULSE 85; RESP 16; O2SAT 97; BMI 36.5
== END 2024-02-12 23:59 | disposition home or self-care (01) ==
PROVIDERS: PCP Nurse Practitioner Family; Visit Provider Nurse Practitioner Family
DX: M51.16 Intervertebral disc disorders with radiculopathy, lumbar region (principal); M79.10 Myalgia, unspecified site; M50.10 Cervical disc disorder with radiculopathy, unspecified cervical region; M47.896 Other spondylosis, lumbar region; M48.02 Spinal stenosis, cervical region; R51.9 Headache, unspecified
CPT/HCPCS: 99212; G0463

== ENCOUNTER 2024-03-03 10:14 | Day surgery (SDC) | payer OTHER, SELFPAY ==
[2024-03-03 10:31] VITALS: BP 135/64; PULSE 70; PULSE 71; RESP 18; O2SAT 95
[2024-03-03] MEDS: BUPIVACAINE 0.25% 10ML INJ 25 MG IJ (10:31)
[2024-03-03] MEDS: LIDOCAINE 1% 5ML PF VIAL 5 ML (10:32)
[2024-03-03] MEDS: methylPREDNISolone ACETATE 80MG/ML VIAL 80 MG (10:32)
[2024-03-03 10:33] VITALS: BP 121/79; PULSE 85; RESP 18; TEMP 36.5; O2SAT 99; BMI 37.9
[2024-03-03 10:40] VITALS: BP 118/81; PULSE 76; RESP 16; O2SAT 96
--- NOTE | 2024-03-03 10:42 | P.PCN_ITS ---
Procedure Date: 03/03/24 Time: 10:32 Anesthesiologist:: Mello Manzo CRNA Complications:: None Pre-procedure Diagnosis:: Degenerative disc lumbar spine multilevels. Lumbar radiculopathy. Lumbar spinal stenosis. Lumbar postlaminectomy syndrome. Lumbar post fusion syndrome. Lumbar spondylosis. Lumbar multilevel facet arthropathy. Post-procedure Diagnosis:: Same. Indications for Procedure:: Patient is a very pleasant 53-year-old female comes our clinic today for round #2 of lumbar medial branch block bilaterally L3-4, L4-5. Patient reports significant improvement in terms of her overall low back pain after receiving round #1 at the same levels. She reports standing, ambulation, flexion, extension, left and right rotation much easier following round 1 injections. She reports the pain is coming back to some degree. However, she reports she is still better today than she was prior to around 1. She rates her pain today 6/10. Procedure Details:: Informed consent was obtained and the risk and benefits of the procedure was e xplained to the patient. Patient was taken to the procedure room where noninvasive monitors were placed, including noninvasive blood pressure cuff as well as pulse oximeter. The area over the lumbar spine was cleansed using chlorhexidine as a cleansing solution. I anesthetized the skin and subcutaneous tissues with 1% Lidocaine. I placed 22-gauge spinal needles into the facet joint/ medial branches of [L3-L4, L4-L5 bilaterally. Needle placement was confirmed with fluoroscopy. After confirmation of needle placement, each site was injected with 1 mL of 1% lidocaine and 0.25 % Marcaine and 10 mg of Depo- Medrol. A total of 80 mg of depo medrol was used for bilateral medial branch blocks of [L3-L4, L4-L5 bilaterally. Patient tolerated the procedure without difficulty. There were no complications. Plan and Disposition:: Patient was discharged without incident.
== END 2024-03-03 10:40 | disposition home or self-care (01) ==
LOC: SC.PAINP 10:15
PROVIDERS: PCP Nurse Practitioner Family; Visit Provider Nurse Anesthetist, Certified Registered
DX: M47.816 Spondylosis without myelopathy or radiculopathy, lumbar region (principal)
CPT/HCPCS: 64493; 64494; J1010

== ENCOUNTER 2024-03-10 07:03 | Day surgery (SDC) | payer OTHER, SELFPAY ==
[2024-03-10 07:06] VITALS: BMI 36.9
[2024-03-10 07:28] VITALS: PULSE 74
[2024-03-10 08:20] VITALS: BP 124/87; PULSE 71; RESP 19; O2SAT 97
[2024-03-10] MEDS: CEFAZOLIN SODIUM 1 GM in 0.9 % SODIUM CHLORIDE 50 ML IV (08:25)
[2024-03-10] MEDS: LIDOCAINE 2% W/EPI 1:100,000 20ML VIAL 20 ML SQ (08:26)
[2024-03-10 08:30] VITALS: BP 125/74; PULSE 66; RESP 19; O2SAT 98
--- NOTE | 2024-03-10 08:33 | P.PCN_ITS ---
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 After informed consent obtained, 1% lidocaine with epinephrine was used to anesthetize the site along the left anterior aspect of the chest near the sternal border. Using the preformed scalpel, an incision was made and using the supplied preloaded apparatus, the loop recorder was placed subcutaneously without difficulty. Following the deployment of the loop recorder interrogation of the device was performed to ensure appropriate voltage was being detected. Once this was verified, Steri- Strips were placed over the incision and the patient was prepped to discharge home. Patient tolerated the procedure well with minimal discomfort. Impression:: Successful implantation of loop recorder Serial Number:: [employer] EL plus Model number [id number] Serial #[id number] Plan:: Routine postop care
[2024-03-10 08:50] VITALS: PULSE 70
== END 2024-03-10 08:53 | disposition home or self-care (01) ==
PROVIDERS: PCP Nurse Practitioner Family; Visit Provider Internal Medicine
DX: R42 Dizziness and giddiness (principal); I10 Essential (primary) hypertension; R94.31 Abnormal electrocardiogram [ECG] [EKG]; R06.02 Shortness of breath; R00.2 Palpitations; Q21.12 Patent foramen ovale; Z86.73 Personal history of transient ischemic attack (TIA), and cerebral infarction without residual deficits
CPT/HCPCS: 33285; C1764; J0690

== ENCOUNTER 2024-03-26 14:05 | Outpatient (POV) | payer OTHER, SELFPAY ==
[2024-03-26 14:14] VITALS: BP 132/75; PULSE 89; RESP 16; O2SAT 96; BMI 36.8
--- NOTE | 2024-03-26 14:54 | EXP.PAIN.SOA ---
[facility] Disclaimer: The information contained in this section may have been updated after the patient was seen, as this information can be updated by other users. Medical History (Updated 03/26/24 @ 14:57 by Natalya Wilson APRN) Implantable loop recorder present Cryptogenic stroke HLD (hyperlipidemia) Back pain with history of spinal surgery Chest pain Elevated left ventricular end-diastolic pressure (LVEDP) SOB (shortness of breath) on exertion Family history of ischemic heart disease (IHD) Edema of both lower extremities Abnormal electrocardiogram [ECG] [EKG] Palpitations Typical angina Abnormal result of cardiovascular function study REINA (obstructive sleep apnea) Newly diagnosed diabetes Osteoarthritis of feet, bilateral Surgical History History of bilateral hip replacements History of back surgery Hx of foot surgery Hx of total hip arthroplasty History of partial hysterectomy History of tonsillectomy Family History Other Cancer Coronary artery disease Diabetes Family history of diabetes mellitus type II Family history of hyperlipidemia Family history of hypothyroidism Family history of stroke Heart attack Social History Smoking Status: Never smoker smoking status start date: 05/01/23 alcohol intake: never substance use type: denies use current occupational status: unemployed Travel in the last 8 weeks: None household members: significant other housing: house lives independently: Yes marital status: single education level: high school service: No 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 Today she rates her pain an 8 out of 10. Patient denies any new trauma or injury. She did state that she had about 80% improvement following this injection however it did only last about a week or so. She states that she has noticed more pain starting this week. Patient states the pain still remains at her back and denies any radiating symptoms into her legs. She states this is a chronic aching throbbing sensation that does interfere with her ability perform activities of daily living. Patient does state today that she would like to proceed forward with the lumbar ablation. Patient does also state that she does have chronic neck pain that is really bothersome as well and that in future she would like to see about doing something for this area. Patient is currently managed with Flexeril, meloxicam and [place] along with gabapentin. She denies any side effects from this medication. Her Leno has been reviewed and is appropriate. Review of Systems: General: No recent weight changes, no fever, no sleep disturbances Respiratory: No cough, no shortness of air, no recurring pulmonary infections Cardiovascular/peripheral vascular: No chest pain, no palpitations, no edema, no shortness of breath Gastrointestinal: No new onset incontinence, normal bowel movements reported Genitourinary: No new onset incontinence Musculoskeletal: Low back pain Psychiatric: [Normal mood/affect] Neurological: [Denies weakness in extremities], [denies balance issues] Pain at rest (0-10 scale): 8 Objective Objective:: Physical Exam: General: Alert and oriented x3, no acute distress, pleasant and cooperative Lungs: Respirations even and unlabored, symmetrical chest expansion Eyes: PERRL Musculoskeletal: Flexion and extension of lumbar [spine] somewhat guarded secondary to pain, [antalgic gait noted] positive Kemps test Neurological: Speech clear, no gross sensory deficit Has patient had previous pain injection?: Yes Percent improvement in pain since last injection: 80% Conservative treatment options previously tried: NSAIDS Length of treatment: Longer than 6 weeks, Home exercise plan Length of treatment: Longer than 6 weeks and Prescription medications Length of treatment: Longer than 6 weeks Meds Home Medications and Allergies Home Medications Medication Instructions Recorded Confirmed Type losartan 100 mg tablet 100 mg PO DAILY 09/07/23 03/26/24 History varenicline 1 mg tablet 1 mg PO DAILY 09/07/23 03/26/24 History venlafaxine 150 mg 150 mg PO DAILY 09/07/23 03/26/24 History capsule,extended release 24 hr rosuvastatin 40 mg tablet See Rx Instructions .Route 09/30/23 03/26/24 Rx .COMPLEX #90 tabs cyanocobalamin (vitamin B-12) 1,000 mcg IM QMONTH 10/09/23 03/26/24 History 1,000 mcg/mL injection solution famotidine 40 mg tablet 40 mg PO DAILY 10/09/23 03/26/24 History montelukast 10 mg tablet 10 mg PO HS 10/09/23 03/26/24 History primidone 50 mg tablet 50 mg PO BID 10/09/23 03/26/24 History dapagliflozin propanediol 5 mg 5 mg PO DAILY 11/04/23 03/26/24 History tablet (Farxiga) albuterol sulfate 90 mcg/actuation 1 - 2 puff inhalation Q4-6H PRN 12/02/23 03/26/24 Rx aerosol inhaler (Proventil HFA) shortness of breath or wheezing #8.5 grams aspirin 81 mg tablet,delayed 81 mg PO DAILY 12/02/23 03/26/24 History release cholecalciferol (vitamin D3) 25 25 mcg PO DAILY 12/02/23 03/26/24 History mcg (1,000 unit) tablet furosemide 40 mg tablet 40 mg PO DAILY 12/23/23 03/26/24 History metformin 500 mg tablet 500 mg PO BID 01/01/24 03/26/24 History cyclobenzaprine 10 mg tablet 10 mg PO HS #30 tabs 02/12/24 03/26/24 Rx gabapentin 300 mg capsule 300 mg PO HS PRN Pain #30 caps 02/12/24 03/26/24 Rx hydrocodone 5 mg-acetaminophen 325 1 tab PO BID #60 tabs 02/12/24 03/26/24 Rx mg tablet tirzepatide 5 mg/0.5 mL 5 mg SQ WEEKLY 03/02/24 03/26/24 History subcutaneous pen injector (Inocente) New Prescriptions to Start Prescriptions: Allergies Allergy/AdvReac Type Severity Reaction Status Date / Time No Known Allergies Allergy Verified 03/24/24 09:56 Assessment and Plan *Assessment and plan (1) Degenerative joint disease (DJD) of lumbar spine: Status: Acute Qualifiers: Spinal osteoarthritis complication: unspecified spinal osteoarthritis Qualified Code(s): M47.816 - Spondylosis without myelopathy or radiculopathy, lumbar region Category: Medical Code(s): M47.816 - Spondylosis without myelopathy or radiculopathy, lumbar region (2) Lumbar facet arthropathy: Status: Acute Category: Medical Code(s): M47.816 - Spondylosis without myelopathy or radiculopathy, lumbar region Plan Patient is experiencing worsening pain throughout her low back with a positive Kemps test and limited range of motion of her lumbar spine. I have reviewed over the risk and benefits of the lumbar radiofrequency ablation. Patient would like to proceed forward with this plan of care. Patient has had 2 successful blocks with her first block providing 75% relief lasting more than a week and her second 1 doing 80% lasting more than a week. Patient has continued at home stretching exercise for longer than 6 weeks with no additional relief. I will refill the patient's prescriptions on Flexeril, meloxicam, [place] and gabapentin and provide a 1 month supply of this medication. Patient will be submitted to insurance for the lumbar radiofrequency ablation bilaterally L3-L4 and L4-L5 with fluoroscopy Risks and benefits of the medication have been explained in detail to the patient. The patient does understand the risk of dependence on the medication when given over a prolonged period. Patient has been advised of risks of oversedation with the prescribed medication. Narcan has been offered to the paitent in the event of oversedation. Patient has been advised that a family member should also be educated regarding administration of Narcan. The patient has been advised to consult with his/her primary care provider and pharmacist regarding drug-drug interaction of medications currently prescribed. Patient has been prescribed a controlled substance after being counseled on the medication, medication safety, and possible side effects. Opioid contract was reviewed and signed by the patient, and that they have agreed to all of the terms set forth by our compliance program. Patient has been instructed to contact the clinic with any concerns before the next appointment. Dr. Barragan has reviewed this note and agrees with this plan of care. This note was dictated using voice recognition software and make contain errors or omissions.
== END 2024-03-26 23:59 | disposition home or self-care (01) ==
PROVIDERS: PCP Nurse Practitioner Family; Visit Provider Nurse Practitioner Family
DX: M47.816 Spondylosis without myelopathy or radiculopathy, lumbar region (principal); Z73.89 Other problems related to life management difficulty; Z79.899 Other long term (current) drug therapy; Z95.811 Presence of heart assist device; Z96.7 Presence of other bone and tendon implants
CPT/HCPCS: 99212; G0463

== ENCOUNTER 2024-05-05 10:02 | Day surgery (SDC) | payer OTHER, SELFPAY ==
[2024-05-05 10:13] VITALS: BP 138/91; PULSE 87; RESP 16; TEMP 36.4; O2SAT 99; BMI 35.0
[2024-05-05] MEDS: LIDOCAINE 1% 5ML PF VIAL 15 ML (10:19)
[2024-05-05] MEDS: BUPIVACAINE 0.25% 10ML INJ 25 MG IJ (10:19)
[2024-05-05] MEDS: methylPREDNISolone ACETATE 80MG/ML VIAL 80 MG (10:19)
[2024-05-05 10:21] VITALS: BP 127/61; PULSE 76; RESP 18; O2SAT 97
[2024-05-05 10:24] VITALS: BP 127/61; PULSE 76; RESP 18; O2SAT 97
[2024-05-05 10:36] VITALS: BP 129/80; PULSE 72; RESP 16; O2SAT 99
--- NOTE | 2024-05-05 10:49 | P.PCN_ITS ---
Procedure Date: 05/05/24 Time: 10:30 Anesthesiologist:: Mello Manzo CRNA Complications:: None Pre-procedure Diagnosis:: Degenerative disc lumbar spine multilevels. Lumbar radiculopathy. Lumbar arthropathy. Lumbar spondylosis. Multilevel lumbar fusion. Lumbar postlaminectomy syndrome. Post-procedure Diagnosis:: Same. Indications for Procedure:: Patient is a very pleasant 53-year-old female comes to clinic today for lumbar radiofrequency ablation bilateral L3-4, L4-5 levels. Patient responded very well to 2 rounds of lumbar medial branch blocks at the same level. She describes low back pain is constant, dull, aching. Standing increases pain. She rates her pain 7/10. Procedure Details:: Informed consent was obtained and the risk and benefits of the procedure was explained to the patient. Patient was placed prone on the procedure table. The patient was prepped and draped in sterile fashion. C-arm fluoroscopy was used to view the lumbar spine. The skin and subcutaneous tissues were anesthetized using lidocaine. I placed 20-gauge RF needles into the facet joints of L3-L4, L4-5 on the left side. We underwent sensory stimulation. There is good sensory stimulation at 0.8 V. We underwent motor stimulation. There is no motor stimulation at 2 V. We then anesthetized these levels with lidocaine and Depo- Medrol. I used a total of 40 mg Depo-Medrol for all 3 levels. I then burned L3- L4, L4-5 on the left side for 4 minutes at 80 ?C. The same procedure was carried out over the right L3-4 and L4-5 levels. Patient tolerated the procedure well with no complication. Plan and Disposition:: Patient was discharged without incident.
== END 2024-05-05 10:36 | disposition home or self-care (01) ==
PROVIDERS: PCP Nurse Practitioner Family; Visit Provider Nurse Anesthetist, Certified Registered
DX: M47.816 Spondylosis without myelopathy or radiculopathy, lumbar region (principal); M51.16 Intervertebral disc disorders with radiculopathy, lumbar region; M96.1 Postlaminectomy syndrome, not elsewhere classified; M43.26 Fusion of spine, lumbar region
CPT/HCPCS: 64635; 64636; J1010

== ENCOUNTER 2024-05-28 10:33 | Outpatient (POV) | payer OTHER, SELFPAY ==
[2024-05-28 10:57] VITALS: BP 143/88; PULSE 89; RESP 16; O2SAT 98; BMI 35.0
--- NOTE | 2024-05-28 11:34 | A.OFFVIS_ITS ---
[facility] Disclaimer: The information contained in this section may have been updated after the patient was seen, as this information can be updated by other users. Medical History Implantable loop recorder present Cryptogenic stroke HLD (hyperlipidemia) Back pain with history of spinal surgery Chest pain Elevated left ventricular end-diastolic pressure (LVEDP) SOB (shortness of breath) on exertion Family history of ischemic heart disease (IHD) Edema of both lower extremities Abnormal electrocardiogram [ECG] [EKG] Palpitations Typical angina Abnormal result of cardiovascular function study REINA (obstructive sleep apnea) Mild to moderate REINA diagnosed November 2020. Symptomatic improvement with CPAP, poor compliance Newly diagnosed diabetes Osteoarthritis of feet, bilateral Surgical History History of bilateral hip replacements History of back surgery Hx of foot surgery left screw Hx of total hip arthroplasty right History of partial hysterectomy has ovaries History of tonsillectomy Family History Other Cancer Coronary artery disease Diabetes Family history of diabetes mellitus type II Family history of hyperlipidemia Family history of hypothyroidism Family history of stroke Heart attack Social History Smoking Status: Never smoker smoking status start date: 05/01/23 alcohol intake: never substance use type: denies use current occupational status: other Travel in the last 8 weeks: None household members: significant other housing: house lives independently: Yes marital status: single education level: high school service: No 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 Patient rates her pain today a 5 out of 10. Patient states that she has had at least 50% improvement following this procedure however she is experiencing worsening pain in and around her bilateral hips and goes into her buttocks area. She describes it as an aching, throbbing sensation with numbness. She does state the pain int erferes with her ability perform activities of daily living such as cooking and cleaning. She does also state that she has been having lower bit more tenderness along her right mid back as well. Patient is also managed with Flexeril 10 mg at bedtime as needed, meloxicam 15 mg daily, [place] 5 mg twice a day and gabapentin 300 mg at bedtime. She denies any side effects from this medication. She has stated she needs refills. Her Leno has been reviewed and is appropriate. Review of Systems: General: No recent weight changes, no fever, no sleep disturbances Respiratory: No cough, no shortness of air, no recurring pulmonary infections Cardiovascular/peripheral vascular: No chest pain, no palpitations, no edema, no shortness of breath Gastrointestinal: No new onset incontinence, normal bowel movements reported Genitourinary: No new onset incontinence Musculoskeletal: Bilateral hip/buttocks pain Psychiatric: [Normal mood/affect] Neurological: [Denies weakness in extremities], [denies balance issues] Pain at rest (0-10 scale): 5 Objective Objective:: Physical Exam: General: Alert and oriented x3, no acute distress, pleasant and cooperative Lungs: Respirations even and unlabored, symmetrical chest expansion Eyes: PERRL Musculoskeletal: Flexion and extension of lumbar [spine] somewhat guarded secondary to pain, [antalgic gait noted] point tenderness along bilateral SIs with positive bilateral Ivory's, Shravan's, Gaenslen's, compression and distraction exam Neurological: Speech clear, no gross sensory deficit Has patient had previous pain injection?: Yes Percent improvement in pain since last injection: More than 50% Conservative treatment options previously tried: Home exercise plan Length of treatment: Longer than 12> weeks Meds Home Medications and Allergies Home Medications ?Medication ?Instructions ?Recorded ?Confirmed ?Type losartan 100 mg tablet 100 mg PO DAILY 09/07/23 05/28/24 History varenicline 1 mg tablet 1 mg PO DAILY 09/07/23 05/28/24 History venlafaxine 150 mg 150 mg PO DAILY 09/07/23 05/28/24 History capsule,extended release 24 hr rosuvastatin 40 mg tablet See Rx Instructions .Route 09/30/23 05/28/24 Rx .COMPLEX #90 tabs cyanocobalamin (vitamin B-12) 1,000 mcg IM QMONTH 10/09/23 05/28/24 History 1,000 mcg/mL injection solution famotidine 40 mg tablet 40 mg PO DAILY 10/09/23 05/28/24 History montelukast 10 mg tablet 10 mg PO HS 10/09/23 05/28/24 History primidone 50 mg tablet 50 mg PO BID 10/09/23 05/28/24 History dapagliflozin propanediol 5 mg 5 mg PO DAILY 11/04/23 05/28/24 History tablet (Farxiga) albuterol sulfate 90 mcg/actuation 1 - 2 puff inhalation Q4-6H PRN 12/02/23 05/28/24 Rx aerosol inhaler (Proventil HFA) shortness of breath or wheezing #8.5 grams aspirin 81 mg tablet,delayed 81 mg PO DAILY 12/02/23 05/28/24 History release cholecalciferol (vitamin D3) 25 25 mcg PO DAILY 12/02/23 05/28/24 History mcg (1,000 unit) tablet furosemide 40 mg tablet 40 mg PO DAILY 12/23/23 05/28/24 History tirzepatide 5 mg/0.5 mL 5 mg SQ WEEKLY 03/02/24 05/28/24 History subcutaneous pen injector (Inocente) cyclobenzaprine 10 mg tablet 10 mg PO HS #30 tabs 03/26/24 05/28/24 Rx gabapentin 300 mg capsule 300 mg PO HS PRN Pain #30 caps 04/29/24 05/28/24 Rx hydrocodone 5 mg-acetaminophen 325 1 tab PO BID #12 tabs 04/29/24 05/28/24 Rx mg tablet New Prescriptions to Start Prescriptions: Allergies Allergy/AdvReac Type Severity Reaction Status Date / Time No Known Allergies Allergy Verified 05/28/24 10:58 Assessment and Plan *Assessment and plan (1) Sacroiliitis: Status: Chronic Category: Medical Code(s): M46.1 - Sacroiliitis, not elsewhere classified (2) Myofascial pain: Status: Acute Category: Medical Code(s): M79.18 - Myalgia, other site Plan Patient is experiencing worsening pain throughout her bilateral hips and buttocks area with point tenderness along her bilateral SIs and a positive bilateral Ivory's, Shravan's, Gaenslen's, compression and distraction exam. I did discuss with patient that she may benefit from bilateral SI injections. Patient did also have point tenderness along her right cervical rhomboid muscles. I did discuss with patient that we can see about trigger point injections in future for that pain. Patient's worsening pain is all across her hips currently. Patient has tried and failed conservative therapy including continued at home stretching exercise for longer than 12 weeks. We will schedule the patient for bilateral SI injections under fluoroscopy. I will also refill her Flexeril, meloxicam, [place] and gabapentin and provide 1 month supply of these medications. Risks and benefits of the medication have been explained in detail to the patient. The patient does understand the risk of dependence on the medication when given over a prolonged period. Patient has been advised of risks of oversedation with the prescribed medication. Narcan has been offered to the paitent in the event of oversedation. Patient has been advised that a family member should also be educated regarding administration of Narcan. The patient has been advised to consult with his/her primary care provider and pharmacist regarding drug-drug interaction of medications currently prescribed. Patient has been prescribed a controlled substance after being counseled on the medication, medication safety, and possible side effects. Opioid contract was reviewed and signed by the patient, and that they have agreed to all of the terms set forth by our compliance program. Patient has been instructed to contact the clinic with any concerns before the next appointment. Dr. Barragan has reviewed this note and agrees with this plan of care. This note was dictated using voice recognition software and make contain errors or omissions.
== END 2024-05-28 23:59 | disposition home or self-care (01) ==
PROVIDERS: PCP Nurse Practitioner Family; Visit Provider Nurse Practitioner Family
DX: M46.1 Sacroiliitis, not elsewhere classified (principal); M79.18 Myalgia, other site; Z86.73 Personal history of transient ischemic attack (TIA), and cerebral infarction without residual deficits; Z73.89 Other problems related to life management difficulty; Z79.899 Other long term (current) drug therapy
CPT/HCPCS: 99212; G0463

== ENCOUNTER 2024-07-07 08:22 | Day surgery (SDC) | payer OTHER, SELFPAY ==
[2024-07-07 08:38] VITALS: BP 114/72; PULSE 77; RESP 16; TEMP 36.4; O2SAT 97; BMI 33.5
[2024-07-07 09:11] VITALS: BP 128/83; PULSE 65; RESP 18; O2SAT 95
[2024-07-07] MEDS: BUPIVACAINE 0.25% 10ML INJ 25 MG IJ (09:11)
[2024-07-07] MEDS: methylPREDNISolone ACETATE 80MG/ML VIAL 80 MG (09:11)
[2024-07-07] MEDS: LIDOCAINE 1% 5ML PF VIAL 5 ML (09:11)
[2024-07-07 09:12] VITALS: BP 128/83; PULSE 69; RESP 18; O2SAT 95
[2024-07-07 09:17] VITALS: BP 124/78; PULSE 76; RESP 16; O2SAT 98
--- NOTE | 2024-07-07 10:04 | P.PCN_ITS ---
Procedure Date: 07/07/24 Time: 08:45 Anesthesiologist:: Mello Manzo CRNA Complications:: None Pre-procedure Diagnosis:: Degenerative disc lumbar spine multilevels. Lumbar radiculopathy. Lumbar postlaminectomy syndrome. Bilateral sacroiliitis. Post-procedure Diagnosis:: Same. Indications for Procedure:: Patient is a very pleasant 53-year-old female who comes our clinic today for bilateral sacroiliac joint injections of cortisone and local anesthetic. Patient describes low lumbar back pain off the midline bilaterally as constant, dull, aching. Also, bilateral posterior hip pain. Patient has had extensive L1 to pelvis lumbar fusion. Patient deals with low lumbar back pain daily. However, upon examination she has extreme point tenderness over the bilateral sacroiliac joints. She rates her pain 8/10. Procedure Details:: Procedure: Bilateral sacroiliac joint injections under fluoroscopy Informed consent was obtained and the risks and benefits of the procedure were explained to the patient.~ The patient was taken to the procedure room and noninvasive monitors were placed including a noninvasive blood pressure cuff and pulse oximeter.~ The patient was placed prone on the procedure table. Both hips were cleansed using Betadine as a cleansing solution. C-arm fluoroscopy was used to view the right sacroiliac joint.~ The skin and subcutaneous tissues were anesthetized using lidocaine 1.5% and a 25-gauge needle.~ After this, a 22-gauge spinal needle was inserted under fluoroscopic guidance into the inferior aspect of the right sacroiliac joint.~ Omnipaque dye was injected and good spread was seen throughout the joint.~ After this, approximately 5 mL of bupivacaine, 0.25% and Depo-Medrol, 40 mg was incrementally injected into the right sacroiliac joint. We then moved to the left sacroiliac joint.~ The skin and subcutaneous tissues were anesthetized using lidocaine 1.5% and a 25-gauge needle.~ After this, a 22- gauge spinal needle was inserted under fluoroscopic guidance into the inferior aspect of the left sacroiliac joint.~ Omnipaque dye was injected and good spread was seen throughout the joint. After this, approximately 5 mL of bupivacaine, 0.25% and Depo-Medrol, 40 mg was incrementally injected into the left sacroiliac joint.~ The patient tolerated the procedure well with no complications. The patient was observed in the Pain Clinic and then was discharged home neurologically intact. Plan and Disposition:: Patient was discharged without incident.
== END 2024-07-07 09:17 | disposition home or self-care (01) ==
LOC: SC.PAINP 08:23
PROVIDERS: PCP Nurse Practitioner Family; Visit Provider Nurse Anesthetist, Certified Registered
DX: M51.16 Intervertebral disc disorders with radiculopathy, lumbar region (principal); M96.1 Postlaminectomy syndrome, not elsewhere classified; M46.1 Sacroiliitis, not elsewhere classified
CPT/HCPCS: G0260; J1010

== ENCOUNTER 2024-07-22 14:55 | Outpatient (POV) | payer OTHER, SELFPAY ==
[2024-07-22 15:05] VITALS: BP 107/75; PULSE 87; RESP 14; O2SAT 98; BMI 33.2
--- NOTE | 2024-07-22 15:23 | EXP.PAIN.SOA ---
[facility] Disclaimer: The information contained in this section may have been updated after the patient was seen, as this information can be updated by other users. Medical History Implantable loop recorder present Cryptogenic stroke HLD (hyperlipidemia) Back pain with history of spinal surgery Chest pain Elevated left ventricular end-diastolic pressure (LVEDP) SOB (shortness of breath) on exertion Family history of ischemic heart disease (IHD) Edema of both lower extremities Abnormal electrocardiogram [ECG] [EKG] Palpitations Typical angina Abnormal result of cardiovascular function study REINA (obstructive sleep apnea) Mild to moderate REINA diagnosed November 2020. Symptomatic improvement with CPAP, poor compliance Newly diagnosed diabetes Osteoarthritis of feet, bilateral Surgical History History of bilateral hip replacements History of back surgery Hx of foot surgery left screw Hx of total hip arthroplasty right History of partial hysterectomy has ovaries History of tonsillectomy Family History Other Cancer Coronary artery disease Diabetes Family history of diabetes mellitus type II Family history of hyperlipidemia Family history of hypothyroidism Family history of stroke Heart attack Social History Smoking Status: Never smoker smoking status start date: 05/01/23 alcohol intake: never substance use type: denies use current occupational status: other Travel in the last 8 weeks: None household members: significant other housing: house lives independently: Yes marital status: single education level: high school service: No 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 Today she rates her pain a 5 out of 10. She denies any new trauma or injury. She does state that she had at least 80% improvement the last couple of weeks following these injections however he is rating it more about 50-60 currently. Patient does however state a lot of her pain that is more bothersome today is all related to her neck and shoulders. Patient states that she has a lot a tension and pressure in and around her neck and shoulders as well as decreased range of motion in her left shoulder. Patient states this been going on for at least 3 to 5 months if not longer. She describes it as an aching, throbbing sensation with some numbness. Patient denies any prior shoulder surgery. She does state that the left side is worse than the right. Patient states the pain is interfering with her ability perform activities of daily living such as cooking and cleaning. Patient is currently managed with gabapentin 300 mg at bedtime, Flexeril 10 mg at bedtime [place] 5 mg twice a day and was previously on meloxicam 15 mg daily however due to her history of stroke this was contraindicated and discontinued. Patient denies any side effects from her other medications and is requesting refills. Patient is asking if possible if we can make a little adjustment to her gabapentin. Her Leno has been reviewed and is appropriate. Review of Systems: General: No recent weight changes, no fever, no sleep disturbances Respiratory: No cough, no shortness of air, no recurring pulmonary infections Cardiovascular/peripheral vascular: No chest pain, no palpitations, no edema, no shortness of breath Gastrointestinal: No new onset incontinence, normal bowel movements reported Genitourinary: No new onset incontinence Musculoskeletal: Neck pain, bilateral shoulder pain Psychiatric: [Normal mood/affect] Neurological: [Denies weakness in extremities], [denies balance issues] Pain at rest (0-10 scale): 5 Objective Objective:: Physical Exam: General: Alert and oriented x3, no acute distress, pleasant and cooperative Lungs: Respirations even and unlabored, symmetrical chest expansion Eyes: PERRL Musculoskeletal: Flexion and extension of bilateral shoulders somewhat guarded secondary to pain, [antalgic gait noted] point tenderness along bilateral trapezius and rhomboid muscles Neurological: Speech clear, no gross sensory deficit Has patient had previous pain injection?: Yes Percent improvement in pain since last injection: 80-60 percent Conservative treatment options previously tried: Home exercise plan Length of treatment: Longer than 12 weeks Meds Home Medications and Allergies Home Medications ?Medication ?Instructions ?Recorded ?Confirmed ?Type losartan 100 mg tablet 100 mg PO DAILY 09/07/23 07/22/24 History varenicline 1 mg tablet 1 mg PO DAILY 09/07/23 07/22/24 History venlafaxine 150 mg 150 mg PO DAILY 09/07/23 07/22/24 History capsule,extended release 24 hr rosuvastatin 40 mg tablet See Rx Instructions .Route 09/30/23 07/22/24 Rx .COMPLEX #90 tabs cyanocobalamin (vitamin B-12) 1,000 mcg IM QMONTH 10/09/23 07/22/24 History 1,000 mcg/mL injection solution famotidine 40 mg tablet 40 mg PO DAILY 10/09/23 07/22/24 History montelukast 10 mg tablet 10 mg PO HS 10/09/23 07/22/24 History primidone 50 mg tablet 50 mg PO BID 10/09/23 07/22/24 History dapagliflozin propanediol 5 mg 5 mg PO DAILY 11/04/23 07/22/24 History tablet (Farxiga) albuterol sulfate 90 mcg/actuation 1 - 2 puff inhalation Q4-6H PRN 12/02/23 07/22/24 Rx aerosol inhaler (Proventil HFA) shortness of breath or wheezing #8.5 grams aspirin 81 mg tablet,delayed 81 mg PO DAILY 12/02/23 07/22/24 History release cholecalciferol (vitamin D3) 25 25 mcg PO DAILY 12/02/23 07/22/24 History mcg (1,000 unit) tablet furosemide 40 mg tablet 40 mg PO DAILY 12/23/23 07/22/24 History tirzepatide 5 mg/0.5 mL 5 mg SQ WEEKLY 03/02/24 07/22/24 History subcutaneous pen injector (Mounjaro) cyclobenzaprine 10 mg tablet 10 mg PO HS #30 tabs 07/08/24 07/22/24 Rx syringe with needle 3 mL 25 gauge #1 ea 07/09/24 07/22/24 History x 1 (BD Luer-Chantelle Syringe) tirzepatide 10 mg/0.5 mL 10 mg SQ QWEEK 07/09/24 07/22/24 History subcutaneous pen injector (Mounjaro) gabapentin 300 mg capsule 300 mg PO BID #60 caps 07/22/24 Rx hydrocodone 5 mg-acetaminophen 325 1 tab PO BID #60 tabs 07/22/24 Rx mg tablet New Prescriptions to Start Prescriptions: gabapentin Wilson,Natalya A hydrocodone-acetaminophen Wilson,Natalya A Allergies Allergy/AdvReac Type Severity Reaction Status Date / Time No Known Allergies Allergy Verified 07/09/24 09:24 Assessment and Plan *Assessment and plan (1) Myofascial pain: Status: Acute Category: Medical Code(s): M79.18 - Myalgia, other site (2) Bilateral shoulder pain: Status: Acute Category: Medical Code(s): M25.511 - Pain in right shoulder; M25.512 - Pain in left shoulder Plan Patient is experiencing worsening pain in and around her neck and bilateral shoulders. Patient did have limited range of motion of her bilateral shoulders and point tenderness along her bilateral trapezius muscles and rhomboid muscles. I did discuss with the patient that she may benefit from both intra-articular shoulder injections as well as trigger point injections. Patient does state that the tension and pressure in and around her muscles is bothering her more than her overall shoulder pain and would like to try the trigger point injections first. Risk and benefits were discussed with the patient regarding this. She would like to proceed forward. Patient has tried and failed conservative therapy including continued at home stretching exercise for longer than 12 weeks. I will send in a 3-month supply of gabapentin and change it to twice a day. Patient will also be sent in a 1 month supply of her [place] and she has already had a 3-month supply of her Flexeril sent in and does not need refills at this time. Patient will be submitted for trigger point injections of her bilateral trapezius and bilateral rhomboid muscles. These injections will be done without fluoroscopy or ultrasound guidance. Risks and benefits of the medication have been explained in detail to the patient. The patient does understand the risk of dependence on the medication when given over a prolonged period. Patient has been advised of risks of oversedation with the prescribed medication. Narcan has been offered to the paitent in the event of oversedation. Patient has been advised that a family member should also be educated regarding administration of Narcan. The patient has been advised to consult with his/her primary care provider and pharmacist regarding drug-drug interaction of medications currently prescribed. Patient has been prescribed a controlled substance after being counseled on the medication, medication safety, and possible side effects. Opioid contract was reviewed and signed by the patient, and that they have agreed to all of the terms set forth by our compliance program. Patient has been instructed to contact the clinic with any concerns before the next appointment. Dr. Barragan has reviewed this note and agrees with this plan of care. This note was dictated using voice recognition software and make contain errors or omissions.
== END 2024-07-22 23:59 | disposition home or self-care (01) ==
PROVIDERS: PCP Nurse Practitioner Family; Visit Provider Nurse Practitioner Family
DX: M79.18 Myalgia, other site (principal); M25.511 Pain in right shoulder; M25.512 Pain in left shoulder; Z73.89 Other problems related to life management difficulty; Z79.899 Other long term (current) drug therapy
CPT/HCPCS: 99212; G0463

== ENCOUNTER 2024-08-05 11:59 | Outpatient (CLI) | payer OTHER, SELFPAY ==
[2024-08-05 12:35] LABS: Basophils # 0.1 K/mm3 (0-0.2); Basophils % 0.7 % (0.1-2.0); Eosinophils # 0.3 K/mm3 (0.0-0.4); Hematocrit 41.2 % (37.0-47.0); Hemoglobin 13.9 g/dL (12.2-16.2); Lymphocytes # 2.6 K/mm3 (0.7-4.5); Lymphocytes % 27.5 % (10-50); Mean Corpuscular HGB Conc 33.8 g/dL (31.8-35.4); Mean Corpuscular Volume 88.7 fl (81-99); Mean Platelet Volume 6.7 fl (7.4-10.4); Monocytes # 0.4 K/mm3 (0.1-1.0); Monocytes % 4.1 % (1.7-9.3); Neutrophils # 6.2 K/mm3 (1.8-7.8); Neutrophils % 64.7 % (37.0-80.0); Platelet Count 383 K/mm3 (142-424); Red Blood Count 4.64 M/mm3 (4.20-5.40); Red Cell Distribution Width 14.4 % (11.5-17.5); White Blood Count 9.6 K/mm3 (4.8-10.8)
[2024-08-05 12:47] LABS: Alanine Aminotransferase 26 U/L (12-78); Albumin Level 3.7 g/dl (3.5-5.0); Albumin/Globulin Ratio 1.5 (1.1-1.8); Alkaline Phosphatase 164 U/L (38-126); Anion Gap 9.1 mEq/L (5-15); Aspartate Amino Transferase 25 U/L (14-36); Bilirubin,Total 0.4 mg/dl (0.2-1.3); Blood Urea Nitrogen 7 mg/dl (7-17); Calcium 9.3 mg/dl (8.4-10.2); Carbon Dioxide 30 mmol/L (22.0-30.0); Chloride 102 mmol/L (98-107); Chol/HDL Ratio 3.3 (1-3.5); Cholesterol 130 mg/dl (140-200); Estimated Glomerular Filt Rate 105 ml/min (>60); GFR (African American) 127 ML/MIN (>60); Globulin 2.4 g/dL (1.3-3.2); Glucose 93 mg/dl (74-100); HDL Cholesterol 39 mg/dl (40-60); Potassium 4.1 mmoL/L (3.5-5.1); Sodium 137 mmol/L (136-145); Total Protein,Serum 6.1 g/dl (6.3-8.2); Triglycerides 98 mg/dl (30-150); VLDL Cholesterol 20 mg/dL (0-40)
[2024-08-05 12:59] LABS: Direct LDL Cholesterol 76.77 mg/dL (100-129)
[2024-08-05 13:34] LABS: Vitamin B12 775 pg/mL (239-931)
[2024-08-05 14:15] LABS: Hemoglobin A1C 6.2 % (4.0-6.0)
[2024-08-05 15:00] LABS: Creatinine,Urine Random 99 mg/dL (Not Estab.)
[2024-08-05 15:15] LABS: Microalbumin/Creatinine Ratio 6.3
== END 2024-08-05 23:59 | disposition home or self-care (01) ==
LOC: LAB 12:00
PROVIDERS: PCP Nurse Practitioner Family; Visit Provider Internal Medicine Adolescent Medicine
DX: E78.5 Hyperlipidemia, unspecified (principal); E53.8 Deficiency of other specified B group vitamins; E55.9 Vitamin D deficiency, unspecified; E11.9 Type 2 diabetes mellitus without complications; Z79.85 Long-term (current) use of injectable non-insulin antidiabetic drugs
CPT/HCPCS: 36415; 80053; 80061; 82043; 82306; 82570; 82607; 83036; 85025

== ENCOUNTER 2024-08-11 13:33 | Day surgery (SDC) | payer OTHER, SELFPAY ==
[2024-08-11 13:37] VITALS: BMI 33.2
[2024-08-11 13:47] VITALS: BP 130/73; PULSE 92; RESP 18; TEMP 36.9; O2SAT 96
[2024-08-11] MEDS: LIDOCAINE 2% W/EPI 1:100,000 20ML VIAL 20 ML SUBCUT (14:13)
[2024-08-11] MEDS: CEFAZOLIN SODIUM 1 GM in 0.9 % SODIUM CHLORIDE 50 ML IV (14:14)
[2024-08-11 14:15] VITALS: BP 140/82; PULSE 100; RESP 20; TEMP 36.6; O2SAT 96
[2024-08-11 14:19] VITALS: BP 134/79; PULSE 90; RESP 20; O2SAT 96
--- NOTE | 2024-08-11 14:56 | EXP.LOOP ---
[facility] Loop Recorder Date: 08/11/24 Time: 14:00 Procedure Performed:: Removal of loop recorder Indication:: Possible infection Technique:: Patient was brought to the cardiac Sprinkling System Installer as an outpatient. After informed consent was obtained, 1% lidocaine was used to anesthetize the area over the insertion with scalpel and forceps used to dissect down to the loop recorder. Forceps used to obtain the device without complications. No evidence of pus or drainage noted. Edges were approximated and a Steri-Strip was applied with pressure dressing over the top of that. Patient tolerated the procedure without complications. Impression:: Successful removal of loop recorder Serial Number:: Not documented Plan:: Routine postop care. Patient is to take antibiotics as instructed.
== END 2024-08-11 14:30 | disposition home or self-care (01) ==
PROVIDERS: PCP Nurse Practitioner Family; Visit Provider Internal Medicine
DX: Z45.09 Encounter for adjustment and management of other cardiac device (principal); Z79.899 Other long term (current) drug therapy; R06.02 Shortness of breath; Z82.49 Family history of ischemic heart disease and other diseases of the circulatory system; I25.10 Atherosclerotic heart disease of native coronary artery without angina pectoris; E11.9 Type 2 diabetes mellitus without complications; T82.7XXA Infection and inflammatory reaction due to other cardiac and vascular devices, implants and grafts, initial encounter; I10 Essential (primary) hypertension
CPT/HCPCS: 33286; J0690

== ENCOUNTER 2024-08-14 08:40 | Day surgery (SDC) | payer OTHER, SELFPAY ==
[2024-08-14 08:57] VITALS: BP 142/90; PULSE 74; RESP 16; TEMP 36.6; O2SAT 96; BMI 32.8
[2024-08-14] MEDS: BUPIVACAINE 0.25% 10ML INJ 25 MG IJ (09:08)
--- NOTE | 2024-08-14 09:08 | P.PCN_ITS ---
Procedure Date: 08/14/24 Time: 09:08 Anesthesiologist:: Natalya Wilson APRN Complications:: None Pre-procedure Diagnosis:: Myofascial pain bilateral trapezius and bilateral rhomboid muscles, low back pain, sacroiliitis Post-procedure Diagnosis:: Same Indications for Procedure:: Patient is a pleasant 53-year-old female who presents today for trigger point injections of her bilateral trapezius and rhomboid muscles. Today she rates her pain a 6 out of 10. Patient denies any new trauma or injury. Patient does states she is still quite a bit of tenderness in and around her shoulders. Patient does also make mention her bilateral hips as well as her shoulder joints themselves are having a lot more pain. Patient does say that her hips is by far worse than even the shoulders. Patient does describe it as an aching, throbbing sensation that does interfere with her ability to perform activities of daily living such as cooking and cleaning. Patient states that she does have trouble laying on her sides due to the worsening hip pain. Patient has tried conservative measures and does state that the increase gabapentin did not really seem to make much change. Patient has continued at home stretching exercise for longer than 12 weeks with no additional changes. Patient is currently managed with gabapentin 300 mg twice a day, Flexeril 10 mg at bedtime and [place] 5 mg twice a day. Patient was just given a 3-month supply of the gabapentin and Flexeril and does not need refills on that medication. her Leno has been reviewed and is appropriate. Physical Exam: General: Alert and oriented x3, no acute distress, pleasant and cooperative Lungs: Respirations even and unlabored, symmetrical chest expansion Eyes: PERRL Musculoskeletal: Flexion and extension of cervical [spine] somewhat guarded secondary to pain, [antalgic gait noted] extreme point tenderness along bilateral trapezius and bilateral rhomboid muscles, point tenderness along bilateral greater trochanteric bursa's Neurological: Speech clear, no gross sensory deficit Procedure Details:: Patient did have noninvasive blood pressure cuff and pulse oximeter applied. Patient was put in a seated position and the area around her shoulders and upper back were cleansed with chlorhexidine as a cleansing solution. Patient was palpated and incrementally marked for areas of tenderness. Using a sterile 25- gauge needle approximately 10 mL of 80 mg Depo-Medrol and 1% lidocaine were incrementally injected into her bilateral trapezius muscles and bilateral rhomboid muscles. The needle was removed and Band-Aids applied. Plan and Disposition:: Patient tolerated the procedure well with no complications and was discharged neurologically intact. I will send in a 1 month supply of her [place]. Patient is experiencing significant pain throughout her bilateral hips with point tenderness with palpation around her greater trochanteric bursa's during today's exam. I did discuss with the patient that I do believe she would benefit from bilateral bursa injections. Risk and benefits were discussed with patient and she would like to proceed forward with this plan of care. Patient has tried and failed conservative therapy including continued at home stretching exercise for longer than 12 weeks. Patient will be scheduled for bilateral greater trochanteric bursa injections. We will look at possibly doing intra-articular shoulder injections at a later date. Risks and benefits of the medication have been explained in detail to the patient. The patient does understand the risk of dependence on the medication when given over a prolonged period. Patient has been advised of risks of oversedation with the prescribed medication. Narcan has been offered to the paitent in the event of oversedation. Patient has been advised that a family member should also be educated regarding administration of Narcan. The patient has been advised to consult with his/her primary care provider and pharmacist regarding drug-drug interaction of medications currently prescribed. Patient has been prescribed a controlled substance after being counseled on the medication, medication safety, and possible side effects. Opioid contract was reviewed and signed by the patient, and that they have agreed to all of the terms set forth by our compliance program. Patient has been instructed to contact the clinic with any concerns before the next appointment. Dr. Barragan has reviewed this note and agrees with this plan of care. This note was dictated using voice recognition software and make contain errors or omissions.
[2024-08-14 09:09] VITALS: BP 139/79; PULSE 72; RESP 18; O2SAT 97
[2024-08-14] MEDS: methylPREDNISolone ACETATE 80MG/ML VIAL 80 MG (09:09)
[2024-08-14] MEDS: LIDOCAINE 1% 5ML PF VIAL 5 ML (09:09)
[2024-08-14 09:13] VITALS: BP 139/79; PULSE 72; RESP 18; O2SAT 97
[2024-08-14 09:24] VITALS: BP 130/78; PULSE 78; RESP 16; O2SAT 99
== END 2024-08-14 09:24 | disposition home or self-care (01) ==
PROVIDERS: PCP Nurse Practitioner Family; Visit Provider Nurse Practitioner Family
DX: M79.18 Myalgia, other site (principal); M46.1 Sacroiliitis, not elsewhere classified; M54.50 Low back pain, unspecified; Z73.89 Other problems related to life management difficulty
CPT/HCPCS: 20552; 99212; G0463; J1010

== ENCOUNTER 2024-08-26 09:29 | Outpatient (POV) | payer OTHER, SELFPAY ==
[2024-08-26 10:24] VITALS: BP 120/74; PULSE 88; RESP 16; O2SAT 94; BMI 32.5
--- NOTE | 2024-08-26 12:49 | A.OFFVIS_ITS ---
[facility] Disclaimer: The information contained in this section may have been updated after the patient was seen, as this information can be updated by other users. Medical History (Reviewed 08/18/24 @ 11: by Millie Thapa MA) Cardiac device, implant, or graft infection or inflammation Encounter for loop recorder check Implantable loop recorder present Cryptogenic stroke HLD (hyperlipidemia) Back pain with history of spinal surgery Chest pain Elevated left ventricular end-diastolic pressure (LVEDP) SOB (shortness of breath) on exertion Family history of ischemic heart disease (IHD) Edema of both lower extremities Abnormal electrocardiogram [ECG] [EKG] Palpitations Typical angina Abnormal result of cardiovascular function study REINA (obstructive sleep apnea) Mild to moderate REINA diagnosed November 2020. Symptomatic improvement with CPAP, poor compliance Newly diagnosed diabetes Osteoarthritis of feet, bilateral Surgical History History of bilateral hip replacements History of back surgery Hx of foot surgery left screw Hx of total hip arthroplasty right History of partial hysterectomy has ovaries History of tonsillectomy Family History (Reviewed 08/18/24 @ 11: by Millie Thapa MA) Other Cancer Coronary artery disease Diabetes Family history of diabetes mellitus type II Family history of hyperlipidemia Family history of hypothyroidism Family history of stroke Heart attack Social History (Reviewed 08/18/24 @ 11: by Millie Thapa MA) Smoking Status: Never smoker smoking status start date: 05/01/23 alcohol intake: never substance use type: denies use current occupational status: other Travel in the last 8 weeks: None household members: significant other housing: house lives independently: Yes marital status: single education level: high school service: No 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 She does state that she had at least 50 to 75% improvement following these injections and feels like they are still helping. She does complain today however of overall neck pain. She does rate that a 5 out of 10 and states that she does notice it with certain positions. She describes bending and twisting somewhat difficult and does interfere with her ability perform activities of daily living such as cooking and cleaning. Patient is interested in additional injection therapy because she has gotten significant improvement in the past through our injections. Patient is currently managed with gabapentin 300 mg twice a day, Flexeril 10 mg at bedtime and [place] 5 mg twice a day. She denies any side effects from this medication. Her Leno has been reviewed and is appropriate. Review of Systems: General: No recent weight changes, no fever, no sleep disturbances Respiratory: No cough, no shortness of air, no recurring pulmonary infections Cardiovascular/peripheral vascular: No chest pain, no palpitations, no edema, no shortness of breath Gastrointestinal: No new onset incontinence, normal bowel movements reported Genitourinary: No new onset incontinence Musculoskeletal: Neck pain Psychiatric: [Normal mood/affect] Neurological: [Denies weakness in extremities], [denies balance issues] Pain at rest (0-10 scale): 5 Objective Objective:: Physical Exam: General: Alert and oriented x3, no acute distress, pleasant and cooperative Lungs: Respirations even and unlabored, symmetrical chest expansion Eyes: PERRL Musculoskeletal: Flexion and extension of cervical [spine] somewhat guarded secondary to pain, [antalgic gait noted] positive Kemps test Neurological: Speech clear, no gross sensory deficit MRI C-spine without Findings: C2-3 and C3-4 are unremarkable. C4-5 minimal uncovertebral hypertrophic on the left with minimal left-sided foraminal narrowing. C5-C6 degenerative disc disease with mild bulging disc with mild bilateral lateral recess and foraminal narrowing with bulging disc and mild uncovertebral hypertrophy. C6-C7 unremarkable. C7-T1 minimal central disc protrusion versus prominent posterior longitudinal ligament without neural impingement 05/15/2017 Has patient had previous pain injection?: Yes Percent improvement in pain since last injection: 50 to 75% Conservative treatment options previously tried: Home exercise plan Length of treatment: Longer than 12 weeks Meds Home Medications and Allergies Home Medications ?Medication ?Instructions ?Recorded ?Confirmed ?Type losartan 100 mg tablet 100 mg PO DAILY 09/07/23 08/26/24 History varenicline 1 mg tablet 1 mg PO DAILY 09/07/23 08/26/24 History venlafaxine 150 mg 150 mg PO DAILY 09/07/23 08/26/24 History capsule,extended release 24 hr rosuvastatin 40 mg tablet See Rx Instructions .Route 09/30/23 08/26/24 Rx .COMPLEX #90 tabs cyanocobalamin (vitamin B-12) 1,000 mcg IM QMONTH 10/09/23 08/26/24 History 1,000 mcg/mL injection solution famotidine 40 mg tablet 40 mg PO DAILY 10/09/23 08/26/24 History montelukast 10 mg tablet 10 mg PO HS 10/09/23 08/26/24 History primidone 50 mg tablet 50 mg PO BID 10/09/23 08/26/24 History dapagliflozin propanediol 5 mg 5 mg PO DAILY 11/04/23 08/26/24 History tablet (Farxiga) albuterol sulfate 90 mcg/actuation 1 - 2 puff inhalation Q4-6H PRN 12/02/23 08/26/24 Rx aerosol inhaler (Proventil HFA) shortness of breath or wheezing #8.5 grams aspirin 81 mg tablet,delayed 81 mg PO DAILY 12/02/23 08/26/24 History release cholecalciferol (vitamin D3) 25 25 mcg PO DAILY 12/02/23 08/26/24 History mcg (1,000 unit) tablet furosemide 40 mg tablet 40 mg PO DAILY 12/23/23 08/26/24 History tirzepatide 5 mg/0.5 mL 5 mg SQ WEEKLY 03/02/24 08/26/24 History subcutaneous pen injector (Mounjaro) cyclobenzaprine 10 mg tablet 10 mg PO HS #30 tabs 07/08/24 08/26/24 Rx syringe with needle 3 mL 25 gauge #1 ea 07/09/24 08/26/24 History x 1 (BD Luer-Chantelle Syringe) tirzepatide 10 mg/0.5 mL 10 mg SQ QWEEK 07/09/24 08/26/24 History subcutaneous pen injector (Mounjaro) gabapentin 300 mg capsule 300 mg PO BID #60 caps 07/22/24 08/26/24 Rx cephalexin 500 mg capsule 500 mg PO QID 10 days #40 caps 08/11/24 08/26/24 Rx hydrocodone 5 mg-acetaminophen 325 1 tab PO BID #60 tabs 08/14/24 08/26/24 Rx mg tablet pantoprazole 40 mg tablet,delayed 40 mg PO DAILY #30 tabs 08/18/24 08/26/24 Rx release (Protonix) New Prescriptions to Start Prescriptions: Allergies Allergy/AdvReac Type Severity Reaction Status Date / Time No Known Allergies Allergy Verified 08/18/24 11:28 Assessment and Plan *Assessment and plan (1) Facet arthropathy, cervical: Status: Acute Category: Medical Code(s): M47.812 - Spondylosis without myelopathy or radiculopathy, cervical region (2) Neck pain: Status: Acute Category: Medical Code(s): M54.2 - Cervicalgia Plan Patient is experiencing significant pain in her neck with limited range of motion and a positive Kemps test. I did discuss with the patient that I do believe she would benefit from cervical medial branch block. Risk and benefits were discussed with patient and she would like to proceed forward with this plan of care. Patient has tried and failed conservative therapy including oral medications, heat and ice, topicals, at home stretching exercise for longer than 12 weeks. Patient has had this pain present for longer than 3 months. I did also discuss with patient if she does get significant relief with this then we will plan on proceeding forward with the second diagnostic block and possible RFA at a later date. Patient agrees with this plan of care. Patient will be scheduled for a diagnostic cervical medial branch block bilaterally C4-C5 and C5-C6 under fluoroscopy. I will also refill the patient's [place]. Risks and benefits of the medication have been explained in detail to the patient. The patient does understand the risk of dependence on the medication when given over a prolonged period. Patient has been advised of risks of oversedation with the prescribed medication. Narcan has been offered to the paitent in the event of oversedatio n. Patient has been advised that a family member should also be educated regarding administration of Narcan. The patient has been advised to consult with his/her primary care provider and pharmacist regarding drug-drug interaction of medications currently prescribed. Patient has been prescribed a controlled substance after being counseled on the medication, medication safety, and possible side effects. Opioid contract was reviewed and signed by the patient, and that they have agreed to all of the terms set forth by our compliance program. A UDS is needed to verify patient's compliance with our office pain contract. This is ordered based off specific treatments related to chronic pain with the potential to abuse certain medications. Patient has been instructed to contact the clinic with any concerns before the next appointment. Dr. Barragan has reviewed this note and agrees with this plan of care. This note was dictated using voice recognition software and make contain errors or omissions.
== END 2024-08-26 23:59 | disposition home or self-care (01) ==
PROVIDERS: PCP Nurse Practitioner Family; Visit Provider Nurse Practitioner Family
DX: M47.812 Spondylosis without myelopathy or radiculopathy, cervical region (principal); M54.2 Cervicalgia; Z96.643 Presence of artificial hip joint, bilateral; Z73.89 Other problems related to life management difficulty; Z79.899 Other long term (current) drug therapy
CPT/HCPCS: 99212; G0463

== ENCOUNTER 2024-09-29 09:53 | Day surgery (SDC) | payer OTHER, SELFPAY ==
[2024-09-29 10:15] VITALS: BP 121/76; PULSE 74; RESP 18; O2SAT 96; BMI 32.2
--- NOTE | 2024-09-29 10:36 | P.PCN_ITS ---
Procedure Date: 09/29/24 Time: 10:33 Anesthesiologist:: Mello Manzo CRNA Complications:: None Pre-procedure Diagnosis:: Bilateral trochanteric bursitis Post-procedure Diagnosis:: Same Indications for Procedure:: Patient is a pleasant 54-year-old female who comes our clinic today for bilat eral trochanteric bursa injections. Patient describes lateral hip pain bilaterally. She reports extreme point tenderness over the bilateral lateral hips. She has extreme point tenderness on exam. Difficulty lying on either side due to the pain. She rates her pain 7/10. Procedure Details:: Procedure: Bilateral trochanteric bursa joint injections under fluoroscopy Informed consent was obtained and the risks and benefits of the procedure were explained to the patient.~ The patient was taken to the procedure room and noninvasive monitors were placed including a noninvasive blood pressure cuff and pulse oximeter.~ The patient was placed prone on the procedure table. Both hips were cleansed using Betadine as a cleansing solution. C-arm fluoroscopy was used to view the right trochanteric bursa joint.~ The skin and subcutaneous tissues were anesthetized using lidocaine 1.5% and a 25-gauge needle.~ After this, a 22- gauge spinal needle was inserted under fluoroscopic guidance into the inferior aspect of the right trochanteric bursa.~ Omnipaque dye was injected and good spread was seen throughout the joint.~ After this, approximately 5 mL of bupivacaine, 0.25% and Depo-Medrol, 40 mg was incrementally injected into the right sacroiliac joint. We then moved to the left trochanteric bursa joint.~ The skin and subcutaneous tissues were anesthetized using lidocaine 1.5% and a 25-gauge needle.~ After this, a 22-gauge spinal needle was inserted under fluoroscopic guidance into the inferior aspect of the left trochanteric bursa joint.~ Omnipaque dye was injected and good spread was seen throughout the joint. After this, approximately 5 mL of bupivacaine, 0.25% and Depo-Medrol, 40 mg was incrementally injected into the left sacroiliac joint.~ The patient tolerated the procedure well with no complications. The patient was observed in the Pain Clinic and then was discharged home neurologically intact. Plan and Disposition:: Patient was discharged without incident.
[2024-09-29 10:43] VITALS: BP 123/77; PULSE 68; RESP 18; O2SAT 97
[2024-09-29] MEDS: BUPIVACAINE 0.25% 10ML INJ 25 MG IJ (10:56)
[2024-09-29] MEDS: methylPREDNISolone ACETATE 80MG/ML VIAL 80 MG (10:57)
[2024-09-29] MEDS: LIDOCAINE 1% 5ML PF VIAL 5 ML (10:57)
[2024-09-29 10:58] VITALS: BP 117/66; PULSE 74; RESP 18; O2SAT 95
[2024-09-29 10:59] VITALS: BP 117/66; PULSE 74; RESP 18; O2SAT 95
== END 2024-09-29 10:43 | disposition home or self-care (01) ==
PROVIDERS: PCP Nurse Practitioner Family; Visit Provider Nurse Anesthetist, Certified Registered
DX: M70.61 Trochanteric bursitis, right hip (principal); M70.62 Trochanteric bursitis, left hip
CPT/HCPCS: 20610; 77002; J1010

== ENCOUNTER 2024-10-06 08:09 | Day surgery (SDC) | payer OTHER, SELFPAY ==
[2024-10-06 08:33] VITALS: BP 123/75; PULSE 72; RESP 16; TEMP 36.4; O2SAT 98; BMI 31.3
[2024-10-06 09:18] VITALS: BP 128/79; PULSE 81; RESP 18; O2SAT 97
--- NOTE | 2024-10-06 09:18 | EXP.PAIN.PRO ---
Procedure Date: 10/06/24 Time: 09:00 Anesthesiologist:: Mello Manzo CRNA Complications:: None Pre-procedure Diagnosis:: Degenerative disc cervical spine multilevels. Cervical radiculopathy. Cervical spondylosis. Multilevel cervical facet arthropathy. Post-procedure Diagnosis:: Same. Indications for Procedure:: Patient is a very pleasant 54-year-old female who comes our clinic today for ROUND ONE of bilateral cervical C4-5, C5-6 medial branch blocks/facet injections. Patient describes cervical neck pain as constant, dull, aching. She reports having difficulty with cervical flexion, extension, left and right rotation. Patient also reporting some radicular symptoms into the bilateral shoulders. She rates her pain 8/10. Procedure Details:: Informed consent was obtained and the risk and benefits of the procedure was explained to the patient. Patient was taken to the procedure room for ROUND ONE of cervical medial branch blocks/facet injections. Noninvasive monitors were placed, including noninvasive blood pressure cuff as well as pulse oximeter. The area over the posterior cervical spine was cleansed using chlorhexidine as a cleansing solution. I anesthetized the skin and subcutaneous tissues with 1% Lidocaine. I placed 25 -gauge spinal needles into the facet joint/ medial branches of C4-5, C5-6 bilaterally. Needle placement was confirmed with fluoroscopy. After confirmation of needle placement, each site was injected with 1 mL of 1% lidocaine and 0.25 % Marcaine and 10 mg of Depo-Medrol. A total of 20 mg of depo medrol was used for bilateral medial branch blocks of C4-5, C5-6 bilaterally. Patient tolerated the procedure without difficulty. There were no complications. . Plan and Disposition:: Patient was discharged without incident.
[2024-10-06] MEDS: LIDOCAINE 1% 5ML PF VIAL 5 ML (09:42)
[2024-10-06] MEDS: methylPREDNISolone ACETATE 80MG/ML VIAL 80 MG (09:42)
[2024-10-06] MEDS: BUPIVACAINE 0.25% 10ML INJ 25 MG IJ (09:42)
[2024-10-06 09:43] VITALS: BP 105/59; PULSE 77; RESP 18; O2SAT 97
[2024-10-06 09:46] VITALS: BP 105/59; PULSE 77; RESP 18; O2SAT 97
[2024-10-06] MEDS: IOPAMIDOL-200 (41%);10ML VIAL 10 ML IV (11:23)
== END 2024-10-06 09:18 | disposition home or self-care (01) ==
PROVIDERS: PCP Nurse Practitioner Family; Visit Provider Nurse Anesthetist, Certified Registered
DX: M47.812 Spondylosis without myelopathy or radiculopathy, cervical region (principal); M50.30 Other cervical disc degeneration, unspecified cervical region
CPT/HCPCS: 64490; 64491; J1010; Q9966

== ENCOUNTER 2024-10-13 14:39 | Outpatient (POV) | payer OTHER, SELFPAY ==
--- NOTE | 2024-10-13 15:14 | A.OFFVIS_ITS ---
[facility] Disclaimer: The information contained in this section may have been updated after the patient was seen, as this information can be updated by other users. Medical History Cardiac device, implant, or graft infection or inflammation Encounter for loop recorder check Implantable loop recorder present Cryptogenic stroke HLD (hyperlipidemia) Back pain with history of spinal surgery Chest pain Elevated left ventricular end-diastolic pressure (LVEDP) SOB (shortness of breath) on exertion Family history of ischemic heart disease (IHD) Edema of both lower extremities Abnormal electrocardiogram [ECG] [EKG] Palpitations Typical angina Abnormal result of cardiovascular function study REINA (obstructive sleep apnea) Mild to moderate REINA diagnosed November 2020. Symptomatic improvement with CPAP, poor compliance Newly diagnosed diabetes Osteoarthritis of feet, bilateral Surgical History History of bilateral hip replacements History of back surgery Hx of foot surgery left screw Hx of total hip arthroplasty right History of partial hysterectomy has ovaries History of tonsillectomy Family History Other Cancer Coronary artery disease Diabetes Family history of diabetes mellitus type II Family history of hyperlipidemia Family history of hypothyroidism Family history of stroke Heart attack Social History (Updated 10/06/24 @ 08:33 by Purvi Gaines RN) Smoking Status: Never smoker smoking status start date: 05/01/23 alcohol intake: never substance use type: denies use current occupational status: other Travel in the last 8 weeks: None household members: significant other housing: house lives independently: Yes marital status: single education level: high school service: No 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 Have you lived/traveled outside [place] in past 30 days?: No Contact w/someone who lives/traveled outside US past 30 days?: No Exposure to someone with infectious disease in past 14 days?: No Do you have a fever (greater than 100.4 F or 38 C)?: No Have you tested positive for COVID-19: No Exposed to someone with COVID-19 in past 14 days?: No Do you have a sore throat?: No Do you have a cough?: No Do you have any weakness?: No Do you have any diarrhea?: No Are you experiencing any unusual bleeding?: No Do you have any muscle aches/pain?: No Do you have any abdominal pain?: No Are you experiencing loss of taste or smell?: No PM Subjective & Objective Subjective Subjective:: Patient is a pleasant 54-year-old female who presents today for follow-up of her first bilateral cervical medial branch blocks C4-C5 and C5-C6 on 10/06/2024. Today she rates her pain a 6 out of 10. She does state that she has had at least 75 to 80% improvement following this procedure and feels like she is still getting improvement. She states that she has had a big difference in her range of motion of her neck with overall decreased pain in that location. She does state that the 6 out of 10 is all related to her low back and right shoulder. Patient does state that she has tenderness in these areas only along the right side and denies any new injury or trauma. She states the pain is just very tender and is interfering with her ability perform activities of daily living such as cooking and cleaning. Patient is interested in additional injection therapy. Patient is currently managed with gabapentin 300 mg twice a day and Burwell 5 mg twice a day as well as Flexeril 10 mg at bedtime. She is requesting refills. Her Leno has been reviewed and is appropriate. Review of Systems: General: No recent weight changes, no fever, no sleep disturbances Respiratory: No cough, no shortness of air, no recurring pulmonary infections Cardiovascular/peripheral vascular: No chest pain, no palpitations, no edema, no shortness of breath Gastrointestinal: No new onset incontinence, normal bowel movements reported Genitourinary: No new onset incontinence Musculoskeletal: Right sided shoulder pain, right low back pain Psychiatric: [Normal mood/affect] Neurological: [Denies weakness in extremities], [denies balance issues] Pain at rest (0-10 scale): 6 Objective Objective:: Physical Exam: General: Alert and oriented x3, no acute distress, pleasant and cooperative Lungs: Respirations even and unlabored, symmetrical chest expansion Eyes: PERRL Musculoskeletal: Flexion and extension of lumbar [spine] somewhat guarded secondary to pain, [antalgic gait noted] point tenderness along right rhomboid and right lumbar paraspinous muscles Neurological: Speech clear, no gross sensory deficit Has patient had previous pain injection?: Yes Percent improvement in pain since last injection: 75 to 80% Conservative treatment options previously tried: Home exercise plan Length of treatment: Longer than 12 weeks Meds Home Medications and Allergies Home Medications ?Medication ?Instructions ?Recorded ?Confirmed ?Type losartan 100 mg tablet 100 mg PO DAILY 09/07/23 10/06/24 History varenicline tartrate 1 mg tablet 1 mg PO DAILY 09/07/23 10/06/24 History venlafaxine 150 mg 150 mg PO DAILY 09/07/23 10/06/24 History capsule,extended release 24 hr rosuvastatin 40 mg tablet See Rx Instructions .Route 09/30/23 10/06/24 Rx .COMPLEX #90 tabs cyanocobalamin (vitamin B-12) 1,000 mcg IM QMONTH 10/09/23 10/06/24 History 1,000 mcg/mL injection solution famotidine 40 mg tablet 40 mg PO DAILY 10/09/23 10/06/24 History montelukast 10 mg tablet 10 mg PO HS 10/09/23 10/06/24 History primidone 50 mg tablet 50 mg PO BID 10/09/23 10/06/24 History dapagliflozin propanediol 5 mg 5 mg PO DAILY 11/04/23 10/06/24 History tablet (Farxiga) albuterol sulfate 90 mcg/actuation 1 - 2 puff inhalation Q4-6H PRN 12/02/23 10/06/24 Rx aerosol inhaler (Proventil HFA) shortness of breath or wheezing #8.5 grams aspirin 81 mg tablet,delayed 81 mg PO DAILY 12/02/23 10/06/24 History release cholecalciferol (vitamin D3) 25 25 mcg PO DAILY 12/02/23 10/06/24 History mcg (1,000 unit) tablet furosemide 40 mg tablet 40 mg PO DAILY 12/23/23 10/06/24 History tirzepatide 5 mg/0.5 mL 5 mg SQ WEEKLY 03/02/24 10/06/24 History subcutaneous pen injector (Inocente) cyclobenzaprine 10 mg tablet 10 mg PO HS #30 tabs 07/08/24 10/06/24 Rx syringe with needle 3 mL 25 gauge #1 ea 07/09/24 10/06/24 History x 1 (BD Luer-Chantelle Syringe) tirzepatide 10 mg/0.5 mL 10 mg SQ QWEEK 07/09/24 10/06/24 History subcutaneous pen injector (Inocente) gabapentin 300 mg capsule 300 mg PO BID #60 caps 07/22/24 10/06/24 Rx cephalexin 500 mg capsule 500 mg PO QID 10 days #40 caps 08/11/24 10/06/24 Rx pantoprazole 40 mg tablet,delayed 40 mg PO DAILY #30 tabs 08/18/24 10/06/24 Rx release (Protonix) hydrocodone 5 mg-acetaminophen 325 1 tab PO BID #60 tabs 08/26/24 10/06/24 Rx mg tablet New Prescriptions to Start Prescriptions: Allergies Allergy/AdvReac Type Severity Reaction Status Date / Time No Known Allergies Allergy Verified 10/06/24 08:37 Assessment and Plan *Assessment and plan (1) Lumbar facet arthropathy: Status: Acute Category: Medical Code(s): M47.816 - Spondylosis without myelopathy or radiculopathy, lumbar region (2) Myofascial pain: Status: Acute Category: Medical Code(s): M79.18 - Myalgia, other site Plan Patient is experiencing worsening pain and a couple muscle groups including her right rhomboid and right lumbar paraspinous muscles. Patient did have limited range of motion of her lumbar spine with point tenderness along this area. I did discuss with her I do believe she would benefit from trigger point injections at these locations. Risk and benefits were discussed with patient and she would like to proceed forward with this plan of care. Patient has tried and failed conservative therapy including continued at home stretching exercise for longer than 12 weeks in between injections. Patient has been experiencing this pain for longer than 3 months and has gotten injections in the past that did provide significant improvement. Patient will be scheduled for trigger point injections of her right rhomboid and right lumbar paraspinous muscles. These will be done without fluoroscopic guidance or ultrasound. I will also refill her gabapentin, Burwell and Flexeril. Patient has been instructed to contact the clinic with any concerns before the next appointment. Dr. Barragan has reviewed this note and agrees with this plan of care. This note was dictated using voice recognition software and make contain errors or omissions. All injections are used with Lidocaine, Bupivacaine and Depo Medrol. Risks and benefits of the medication have been explained in detail to the patient. The patient does understand the risk of dependence on the medication when given over a prolonged period. Patient has been advised of risks of oversedation with the prescribed medicat ion. Narcan has been offered to the paitent in the event of oversedation. Patient has been advised that a family member should also be educated regarding administration of Narcan. The patient has been advised to consult with his/her primary care provider and pharmacist regarding drug-drug interaction of medications currently prescribed. Patient has been prescribed a controlled substance after being counseled on the medication, medication safety, and possible side effects. Opioid contract was reviewed and signed by the patient, and that they have agreed to all of the terms set forth by our compliance program. A UDS is needed to verify patient's compliance with our office pain contract. This is ordered based off specific treatments related to chronic pain with the potential to abuse certain medications.
[2024-10-13 15:15] VITALS: BP 109/78; PULSE 88; RESP 14; O2SAT 96; BMI 31.3
== END 2024-10-13 23:59 | disposition home or self-care (01) ==
PROVIDERS: PCP Nurse Practitioner Family; Visit Provider Nurse Practitioner Family
DX: M47.816 Spondylosis without myelopathy or radiculopathy, lumbar region (principal); M79.18 Myalgia, other site; Z96.643 Presence of artificial hip joint, bilateral; Z73.89 Other problems related to life management difficulty; Z79.899 Other long term (current) drug therapy
CPT/HCPCS: 99212; G0463

== ENCOUNTER 2024-11-10 07:34 | Outpatient (CLI) | payer OTHER, SELFPAY ==
--- NOTE | 2024-11-10 07:38 | CT_ITS ---
FINAL REPORT CLINICAL HISTORY: SCREENING CURRENT SMOKER 1PPD X37 YEARS COMPARISON: 05/06/2023 FINDINGS: CT CHEST LOW DOSE SCREENING HISTORY: Screening exam for lung cancer. DOSE: CTDI vol: 2.90 mGy, DLP: 85.69 mGy*cm TECHNIQUE: Axial CT without IV contrast administration using low dose protocol. This study was performed with techniques to keep radiation doses as low as reasonably achievable, (ALARA). Individualized dose reduction techniques using automated exposure control or adjustment of mA and/or kV according to the patient's size were employed. There is minimal lingular scar or atelectasis. There is evidence of old granulomatous disease. No acute lung disease is present. No pulmonary lesions are seen suspicious for neoplasm. No pleural or pericardial effusion is seen. No adenopathy or mass lesion is present. IMPRESSION: No evidence of lung cancer LUNG RADS CATEGORY 1 RECOMMENDATION: 12 month LDCT follow up Reviewed, Interpreted and Dictated by Kristin Katz MD Transcribed by Melissa Mendoza Authenticated and [facility]
--- NOTE | 2024-11-10 07:42 | US_ITS ---
FINAL REPORT TECHNIQUE: Limited sonographic imaging of the left axilla was obtained. CLINICAL HISTORY: SWELLING FINDINGS: There are normal axillary lymph nodes. No enlarged lymph node or mass is seen to account for palpable abnormality. IMPRESSION: Unremarkable exam. Reviewed, Interpreted and Dictated by Kristin Katz MD Transcribed by Kelsy Pablo Authenticated and [facility]
== END 2024-11-10 23:59 | disposition home or self-care (01) ==
LOC: RAD 07:35
PROVIDERS: PCP Nurse Practitioner Family; Visit Provider Nurse Practitioner Family
DX: M79.89 Other specified soft tissue disorders (principal); Z87.891 Personal history of nicotine dependence
CPT/HCPCS: 71271; 76642

== ENCOUNTER 2024-11-13 13:04 | Outpatient (POV) | payer OTHER, SELFPAY ==
--- NOTE | 2024-11-13 13:10 | A.OFFVIS_ITS ---
[facility] Disclaimer: The information contained in this section may have been updated after the patient was seen, as this information can be updated by other users. Medical History Cardiac device, implant, or graft infection or inflammation Encounter for loop recorder check Implantable loop recorder present Cryptogenic stroke HLD (hyperlipidemia) Back pain with history of spinal surgery Chest pain Elevated left ventricular end-diastolic pressure (LVEDP) SOB (shortness of breath) on exertion Family history of ischemic heart disease (IHD) Edema of both lower extremities Abnormal electrocardiogram [ECG] [EKG] Palpitations Typical angina Abnormal result of cardiovascular function study REINA (obstructive sleep apnea) Mild to moderate REINA diagnosed November 2020. Symptomatic improvement with CPAP, poor compliance Newly diagnosed diabetes Osteoarthritis of feet, bilateral Surgical History History of bilateral hip replacements History of back surgery Hx of foot surgery left screw Hx of total hip arthroplasty right History of partial hysterectomy has ovaries History of tonsillectomy Family History Other Cancer Coronary artery disease Diabetes Family history of diabetes mellitus type II Family history of hyperlipidemia Family history of hypothyroidism Family history of stroke Heart attack Social History Smoking Status: Never smoker smoking status start date: 05/01/23 alcohol intake: never substance use type: denies use current occupational status: other Travel in the last 8 weeks: None household members: significant other housing: house lives independently: Yes marital status: single education level: high school service: No 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 Today she rates her pain a 9 out of 10. She denies any new trauma or injury. She does state that the low back from her last appointment has eased down some however she is complaining that most of her pain today is all along her neck and upper shoulder blades with numbness and tingling that is worsening into her right arm and hand. She does have the same symptoms in the left side however it is not as severe compared to the right. Patient does state the pain is interfering with her ability perform activities of daily living such as cooking and cleaning. She states she is interested in any help we may be able to provide. Patient did previously have her first diagnostic cervical medial branch block bilaterally of C4-C5 C5-C6 on October 06 that did provide 80% improvement and at our last visit was still helping and providing good relief. Today she states that she still feels like turning her head [id number] is better. She does make mention however that her low back is also very bothersome when she goes to bend down or twist. Patient did previously have a lumbar RFA in the past. Patient is currently managed with gabapentin 300 mg twice a day, [place] 5 mg twice a day and Flexeril 10 mg at bedtime. She denies any side effects from this medication. Her Leno has been reviewed and is appropriate. Review of Systems: General: No recent weight changes, no fever, no sleep disturbances Respiratory: No cough, no shortness of air, no recurring pulmonary infections Cardiovascular/peripheral vascular: No chest pain, no palpitations, no edema, no shortness of breath Gastrointestinal: No new onset incontinence, normal bowel movements reported Genitourinary: No new onset incontinence Musculoskeletal: Neck pain, mid back pain, bilateral arm numbness tingling, low back pain Psychiatric: [Normal mood/affect] Neurological: [Denies weakness in extremities], [denies balance issues] Pain at rest (0-10 scale): 9 Objective Objective:: Physical Exam: General: Alert and oriented x3, no acute distress, pleasant and cooperative Lungs: Respirations even and unlabored, symmetrical chest expansion Eyes: PERRL Musculoskeletal: Flexion and extension of cervical [spine] somewhat guarded secondary to pain, [antalgic gait noted] positive Spurling's test Neurological: Speech clear, no gross sensory deficit Has patient had previous pain injection?: No Conservative treatment options previously tried: Home exercise plan Length of treatment: Longer than 12 weeks Meds Home Medications and Allergies Home Medications ?Medication ?Instructions ?Recorded ?Confirmed ?Type losartan 100 mg tablet 100 mg PO DAILY 09/07/23 11/13/24 History varenicline tartrate 1 mg tablet 1 mg PO DAILY 09/07/23 11/13/24 History venlafaxine 150 mg 150 mg PO DAILY 09/07/23 11/13/24 History capsule,extended release 24 hr rosuvastatin 40 mg tablet See Rx Instructions .Route 09/30/23 11/13/24 Rx .COMPLEX #90 tabs cyanocobalamin (vitamin B-12) 1,000 mcg IM QMONTH 10/09/23 11/13/24 History 1,000 mcg/mL injection solution famotidine 40 mg tablet 40 mg PO DAILY 10/09/23 11/13/24 History montelukast 10 mg tablet 10 mg PO HS 10/09/23 11/13/24 History primidone 50 mg tablet 50 mg PO BID 10/09/23 11/13/24 History dapagliflozin propanediol 5 mg 5 mg PO DAILY 11/04/23 11/13/24 History tablet (Farxiga) albuterol sulfate 90 mcg/actuation 1 - 2 puff inhalation Q4-6H PRN 12/02/23 11/13/24 Rx aerosol inhaler (Proventil HFA) shortness of breath or wheezing #8.5 grams aspirin 81 mg tablet,delayed 81 mg PO DAILY 12/02/23 11/13/24 History release cholecalciferol (vitamin D3) 25 25 mcg PO DAILY 12/02/23 11/13/24 History mcg (1,000 unit) tablet furosemide 40 mg tablet 40 mg PO DAILY 12/23/23 11/13/24 History tirzepatide 5 mg/0.5 mL 5 mg SQ WEEKLY 03/02/24 11/13/24 History subcutaneous pen injector (Inocente) syringe with needle 3 mL 25 gauge #1 ea 07/09/24 11/13/24 History x 1 (BD Luer-Chantelle Syringe) tirzepatide 10 mg/0.5 mL 10 mg SQ QWEEK 07/09/24 11/13/24 History subcutaneous pen injector (Virgilioro) cephalexin 500 mg capsule 500 mg PO QID 10 days #40 caps 08/11/24 11/13/24 Rx pantoprazole 40 mg tablet,delayed 40 mg PO DAILY #30 tabs 08/18/24 11/13/24 Rx release (Protonix) gabapentin 300 mg capsule 300 mg PO BID #60 caps 10/13/24 11/13/24 Rx cyclobenzaprine 10 mg tablet 10 mg PO BID #60 tabs 11/13/24 Rx hydrocodone 5 mg-acetaminophen 325 1 tab PO BID #60 tabs 11/13/24 Rx mg tablet New Prescriptions to Start Prescriptions: cyclobenzaprine Wilson,Natalya A hydrocodone-acetaminophen Wilson,Natalya A Allergies Allergy/AdvReac Type Severity Reaction Status Date / Time No Known Allergies Allergy Verified 10/06/24 08:37 Assessment and Plan *Assessment and plan (1) Facet arthropathy, cervical: Status: Acute Category: Medical Code(s): M47.812 - Spondylosis without myelopathy or radiculopathy, cervical region (2) Myofascial pain: Status: Acute Category: Medical Code(s): M79.18 - Myalgia, other site (3) Lumbar facet arthropathy: Status: Acute Category: Medical Code(s): M47.816 - Spondylosis without myelopathy or radiculopathy, lumbar region (4) Neck pain: Status: Acute Category: Medical Code(s): M54.2 - Cervicalgia (5) Cervical radiculopathy: Status: Acute Category: Medical Code(s): M54.12 - Radiculopathy, cervical region (6) Mid back pain: Status: Acute Category: Medical Code(s): M54.9 - Dorsalgia, unspecified Plan Patient is experiencing worsening pain in their neck with radiating tingling and burning sensations into their bilateral upper extremities. Patient did have limited range of motion of her cervical spine with a positive Spurling's test. I did discuss with the patient that I do believe they would benefit from a cervical epidural steroid injection. Risk and benefits were discussed with patient and they would like to proceed forward with this plan of care. Patient has tried and failed conservative therapy including oral medications, heat and ice, topicals, at home stretching exercise for longer than 12 weeks that was physician guided. Patient's last epidural of the cervical spine was in December 2022 at the C6-C7 level. Patient did end up getting 50% improvement following that injection and did last at least 3 months. Patient has not had any additional cervical epidurals since. Patient will be scheduled for a NATALIE C5-C6 under fluoroscopy. Patient's last updated cervical imaging from 2022 did show at the C5-C6 level having mild canal narrowing with severe bilateral foraminal narrowing. Patient's last lumbar RFA was in April 2024. We will plan on following up with patient in future visits that it may be time to repeat this prior procedure. I will refill the patient's [place] and also change her Flexeril to twice a day. Patient was counseled that she can try the medication during the day and see if this helps additionally with her pain improvement. Patient will be ordered updated x-ray imaging of her cervical and thoracic spine and we will proceed forward with ordering an updated MRI of her cervical spine without contrast. We will plan in future also getting advanced imaging of her thoracic and lumbar spine. Patient denies any blood thinners. Patient has been instructed to contact the clinic with any concerns before the next appointment. Dr. Barragan has reviewed this note and agrees with this plan of care. This note was dictated using voice recognition software and make contain errors or omissions. All injections are used with Lidocaine, Bupivacaine and Depo Medrol. Occasionally urine drug screen is needed to verify patient's compliance with our office pain contract. This is ordered based off specific treatments related to chronic pain with the potential to abuse certain medications.
[2024-11-13 13:21] VITALS: BP 110/75; PULSE 100; RESP 18; O2SAT 98; BMI 31.1
--- NOTE | 2024-11-13 13:38 | XR_ITS ---
FINAL REPORT CLINICAL HISTORY: mid back pain FINDINGS: THORACIC SPINE Three views were obtained. There is no acute fracture. There is advanced degenerative disc disease in the lower half of the thoracic spine. Thoracic kyphosis is noted. There is no malalignment. IMPRESSION: Advanced degenerative disc disease. Reviewed, Interpreted and Dictated by Kristin Katz MD Transcribed by Melissa Mendoza Authenticated and [facility]
--- NOTE | 2024-11-13 13:38 | XR_ITS ---
FINAL REPORT CLINICAL HISTORY: neck pain COMPARISON: 05/24/2022 FINDINGS: CERVICAL SPINE Three views were obtained. There is no acute fracture. There is mild disc space narrowing at C4-5 and C5-6, similar to previous. There is no malalignment. IMPRESSION: Stable mild degenerative disc disease. Reviewed, Interpreted and Dictated by Kristin Katz MD Transcribed by Melissa Mendoza Authenticated and [facility]
== END 2024-11-13 23:59 | disposition home or self-care (01) ==
PROVIDERS: PCP Nurse Practitioner Family; Visit Provider Nurse Practitioner Family
DX: M54.2 Cervicalgia (principal); M54.9 Dorsalgia, unspecified; M47.22 Other spondylosis with radiculopathy, cervical region; M79.18 Myalgia, other site; M47.816 Spondylosis without myelopathy or radiculopathy, lumbar region; Z96.643 Presence of artificial hip joint, bilateral; Z73.89 Other problems related to life management difficulty; Z79.899 Other long term (current) drug therapy
CPT/HCPCS: 72040; 72072; 99212; G0463

== ENCOUNTER 2024-11-16 10:50 | Outpatient (CLI) | payer OTHER, SELFPAY ==
--- NOTE | 2024-11-16 10:52 | MM_ITS ---
PROCEDURE INFORMATION: Exam: MG Bilateral Screening 3D Mammography Exam date and time: 11/16/2024 11:01 AM Age: 54 years old Clinical indication: Screening examination. Technologist notes scar from loop recorder removal in the upper left breast. TECHNIQUE: Imaging protocol: Bilateral Screening tomosynthesis and 2D mammography including computer-aided detection (CAD) when performed. COMPARISON: 1. MG MM DIG SCREENING MAMM BI W/CAD 11/08/2023 1:24 PM 2. MG MM DIG SCREENING MAMM BI W/CAD 10/18/2022 11:15 AM 3. MG MM DIG SCREENING MAMM BI W/CAD 05/11/2021 8:05 AM 4. MG MM DIG SCREENING MAMM BI W/CAD 05/10/2020 4:08 PM FINDINGS: MAMMOGRAPHY: Breast composition: There are scattered areas of fibroglandular density. Mass: No suspicious mass. Architectural distortion: None. Calcifications: No suspicious calcifications. Asymmetric density: None. Superficial patchy asymmetry in the upper left breast posterior 3rd appears to correlate to history of scar related to loop recorder removal. Skin thickening: None. Axillary adenopathy: None. IMPRESSION: Superficial patchy asymmetry in the upper left breast posterior 3rd appears to correlate to history of scar related to loop recorder removal, which can be correlated clinically as well. No mammographic evidence of malignancy. Annual screening is recommended unless otherwise clinically indicated. ASSESSMENT: BI-RADS Category 2: Benign.
== END 2024-11-16 23:59 | disposition home or self-care (01) ==
LOC: RAD 10:50
PROVIDERS: PCP Nurse Practitioner Family; Visit Provider Nurse Practitioner Family
DX: Z12.31 Encounter for screening mammogram for malignant neoplasm of breast (principal)
CPT/HCPCS: 77063; 77067

== ENCOUNTER 2024-11-17 12:32 | Outpatient (CLI) | payer OTHER, SELFPAY ==
--- NOTE | 2024-11-17 12:36 | XR_ITS ---
FINAL REPORT CLINICAL HISTORY: pain and swelling in right foot and ankle FINDINGS: RIGHT FOOT 3 views of the right foot were obtained. There is no acute fracture or dislocation. There is a small plantar spur. Visualized joint spaces are normally aligned. Soft tissues are unremarkable. IMPRESSION: No acute bony abnormality. Reviewed, Interpreted and Dictated by Oc Blackwell MD Transcribed by Kelsy Pablo Authenticated and [facility]
--- NOTE | 2024-11-17 12:36 | XR_ITS ---
FINAL REPORT CLINICAL HISTORY: pain and swelling in right foot and ankle FINDINGS: RIGHT ANKLE 3 views of the right ankle were obtained. There is no acute fracture or dislocation. The mortise is intact. Visualized joint spaces are normally aligned. There is mild soft tissue swelling overlying the lateral malleolus. IMPRESSION: No acute bony abnormality. Reviewed, Interpreted and Dictated by Oc Blackwell MD Transcribed by Kelsy Pablo Authenticated and [facility]
[2024-11-17 14:25] LABS: Thyroid Stimulating Hormone 1.47 uIU/mL (0.465-4.68)
[2024-11-17 14:45] LABS: Vitamin B12 824 pg/mL (239-931)
== END 2024-11-17 23:59 | disposition home or self-care (01) ==
LOC: LAB 12:33
PROVIDERS: PCP Nurse Practitioner Family; Visit Provider Specialist
DX: M79.671 Pain in right foot (principal); M25.571 Pain in right ankle and joints of right foot; R25.1 Tremor, unspecified
CPT/HCPCS: 36415; 73610; 73630; 82607; 84443

== ENCOUNTER 2024-12-03 14:48 | Outpatient (POV) | payer OTHER, SELFPAY ==
[2024-12-03 15:04] VITALS: BP 118/69; PULSE 87; RESP 14; O2SAT 100; BMI 31.0
--- NOTE | 2024-12-03 15:15 | A.OFFVIS_ITS ---
[facility] Disclaimer: The information contained in this section may have been updated after the patient was seen, as this information can be updated by other users. Medical History (Updated 12/03/24 @ 15:17 by Natalya Wilson APRN) REINA (obstructive sleep apnea) Cardiac device, implant, or graft infection or inflammation Encounter for loop recorder check Implantable loop recorder present Cryptogenic stroke HLD (hyperlipidemia) Back pain with history of spinal surgery Chest pain Elevated left ventricular end-diastolic pressure (LVEDP) SOB (shortness of breath) on exertion Family history of ischemic heart disease (IHD) Edema of both lower extremities Abnormal electrocardiogram [ECG] [EKG] Palpitations Typical angina Abnormal result of cardiovascular function study REINA (obstructive sleep apnea) Newly diagnosed diabetes Osteoarthritis of feet, bilateral Surgical History History of bilateral hip replacements History of back surgery Hx of foot surgery Hx of total hip arthroplasty History of partial hysterectomy History of tonsillectomy Family History Other Cancer Coronary artery disease Diabetes Family history of diabetes mellitus type II Family history of hyperlipidemia Family history of hypothyroidism Family history of stroke Heart attack Social History Smoking Status: Never smoker smoking status start date: 05/01/23 alcohol intake: never substance use type: denies use current occupational status: other Travel in the last 8 weeks: None household members: significant other housing: house lives independently: Yes marital status: single education level: high school service: No 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 She rates it an 8 out of 10. She denies any new injury or trauma. She just states that it continues to get worse. Patient does state the pain interferes with her ability perform activities of daily living such as cooking and cleaning. Patient has continued conservative therapy with no additional improvement. Patient is scheduled to start physical therapy this c ing week for her neck and radicular symptoms. Patient is in the process of trying to get advanced imaging however it was denied due to lack of having recent PT. Patient is currently managed with gabapentin 300 mg twice a day, Oakley 5 mg twice a day and Flexeril 10 mg at bedtime. She denies any side effects from this medication. Her Leno has been reviewed. Patient does make mention today that she has had her grandkids the last few days and so she does not take her pain medication when she watches them. Review of Systems: General: No recent weight changes, no fever, no sleep disturbances Respiratory: No cough, no shortness of air, no recurring pulmonary infections Cardiovascular/peripheral vascular: No chest pain, no palpitations, no edema, no shortness of breath Gastrointestinal: No new onset incontinence, normal bowel movements reported Genitourinary: No new onset incontinence Musculoskeletal: Right shoulder pain Psychiatric: [Normal mood/affect] Neurological: [Denies weakness in extremities], [denies balance issues] Pain at rest (0-10 scale): 8 Objective Objective:: Physical Exam: General: Alert and oriented x3, no acute distress, pleasant and cooperative Lungs: Respirations even and unlabored, symmetrical chest expansion Eyes: PERRL Musculoskeletal: Flexion and extension of right shoulder somewhat guarded secondary to pain, [antalgic gait noted] Neurological: Speech clear, no gross sensory deficit Has patient had previous pain injection?: No Conservative treatment options previously tried: Home exercise plan Length of treatment: Longer than 12-week Meds Home Medications and Allergies Home Medications ?Medication ?Instructions ?Recorded ?Confirmed ?Type losartan 100 mg tablet 100 mg PO DAILY 09/07/23 11/17/24 History varenicline tartrate 1 mg tablet 1 mg PO DAILY 09/07/23 11/17/24 History venlafaxine 150 mg 150 mg PO DAILY 09/07/23 11/17/24 History capsule,extended release 24 hr rosuvastatin 40 mg tablet See Rx Instructions .Route 09/30/23 11/17/24 Rx .COMPLEX #90 tabs cyanocobalamin (vitamin B-12) 1,000 mcg IM QMONTH 10/09/23 11/17/24 History 1,000 mcg/mL injection solution famotidine 40 mg tablet 40 mg PO DAILY 10/09/23 11/17/24 History montelukast 10 mg tablet 10 mg PO HS 10/09/23 11/17/24 History primidone 50 mg tablet 50 mg PO BID 10/09/23 11/17/24 History dapagliflozin propanediol 5 mg 5 mg PO DAILY 11/04/23 11/17/24 History tablet (Farxiga) albuterol sulfate 90 mcg/actuation 1 - 2 puff inhalation Q4-6H PRN 12/02/23 11/17/24 Rx aerosol inhaler (Proventil HFA) shortness of breath or wheezing #8.5 grams aspirin 81 mg tablet,delayed 81 mg PO DAILY 12/02/23 11/17/24 History release cholecalciferol (vitamin D3) 25 25 mcg PO DAILY 12/02/23 11/17/24 History mcg (1,000 unit) tablet furosemide 40 mg tablet 40 mg PO DAILY 12/23/23 11/17/24 History tirzepatide 5 mg/0.5 mL 5 mg SQ WEEKLY 03/02/24 11/17/24 History subcutaneous pen injector (Mounjaro) syringe with needle 3 mL 25 gauge #1 ea 07/09/24 11/13/24 History x 1 (BD Luer-Chantelle Syringe) tirzepatide 10 mg/0.5 mL 10 mg SQ QWEEK 07/09/24 11/17/24 History subcutaneous pen injector (Mounjaro) pantoprazole 40 mg tablet,delayed 40 mg PO DAILY #30 tabs 08/18/24 11/17/24 Rx release (Protonix) gabapentin 300 mg capsule 300 mg PO BID #60 caps 10/13/24 11/17/24 Rx cyclobenzaprine 10 mg tablet 10 mg PO BID #60 tabs 11/13/24 11/17/24 Rx hydrocodone 5 mg-acetaminophen 325 1 tab PO BID #60 tabs 11/13/24 11/17/24 Rx mg tablet nystatin 100,000 unit/gram topical topical 11/17/24 11/17/24 History cream primidone 50 mg tablet 50 mg PO HS Tremor #90 tabs 11/17/24 11/17/24 Rx New Prescriptions to Start Prescriptions: Allergies Allergy/AdvReac Type Severity Reaction Status Date / Time No Known Allergies Allergy Verified 11/17/24 07:35 Assessment and Plan *Assessment and plan (1) Right shoulder pain: Status: Acute Category: Medical Code(s): M25.511 - Pain in right shoulder Plan Patient is experienced worsening pain in her right shoulder with very limited range of motion. I did discuss with the patient that I do believe she would benefit from a right shoulder intra-articular injection. Risk and benefits were discussed with patient and she would like to proceed forward with this plan of care. Patient has tried and failed conservative therapy including oral medications, heat and ice, topicals, at home exercising and stretching for long er than 12 weeks. Patient is currently getting ready to start physical therapy for her neck with radiating symptoms into her bilateral arms. We will continue to monitor her progress. I will also make sure she has refills on her medications of the gabapentin, Oakley and Flexeril. Patient will be scheduled for her first diagnostic injection in her right shoulder. Patient has had this pain for longer than 3 months and denies any prior surgical intervention or injection intervention. This will be an intra-articular injection without fluoroscopic or ultrasound guidance. Patient has been instructed to contact the clinic with any concerns before the next appointment. Dr. Barragan has reviewed this note and agrees with this plan of care. This note was dictated using voice recognition software and make contain errors or omissions. All injections are used with Lidocaine, Bupivacaine and Depo Medrol. Occasionally urine drug screen is needed to verify patient's compliance with our office pain contract. This is ordered based off specific treatments related to chronic pain with the potential to abuse certain medications.
== END 2024-12-03 23:59 | disposition home or self-care (01) ==
PROVIDERS: PCP Nurse Practitioner Family; Visit Provider Nurse Practitioner Family
DX: M25.511 Pain in right shoulder (principal); Z96.643 Presence of artificial hip joint, bilateral; Z73.89 Other problems related to life management difficulty; Z79.899 Other long term (current) drug therapy
CPT/HCPCS: 99212; G0463

== ENCOUNTER 2024-12-15 09:44 | Day surgery (SDC) | payer OTHER, SELFPAY ==
[2024-12-15 10:00] VITALS: BP 115/79; PULSE 89; RESP 17; O2SAT 98; BMI 30.7
[2024-12-15 10:29] VITALS: BP 122/79; PULSE 66; RESP 18; O2SAT 94
[2024-12-15] MEDS: methylPREDNISolone ACETATE 80MG/ML VIAL 80 MG (10:29)
[2024-12-15 10:30] VITALS: BP 122/79; PULSE 66; RESP 18; O2SAT 94
[2024-12-15 10:39] VITALS: BP 119/77; PULSE 63; RESP 18; O2SAT 100
--- NOTE | 2024-12-15 12:41 | P.PCN_ITS ---
Procedure Date: 12/15/24 Time: 10:30 Anesthesiologist:: Mello Manzo CRNA Complications:: None Pre-procedure Diagnosis:: Degenerative disc cervical spine multilevels. Cervical radiculopathy. Post-procedure Diagnosis:: Same. Indications for Procedure:: Patient is a very pleasant 54-year-old female comes to clinic today for cervical epidural steroid injection. Patient describes posterior cervical neck pain is constant, dull, aching. Patient also reports bilateral shoulder and arm radi cular symptoms at times. She rates her pain 7/10. Procedure Details:: Procedure:Cervical epidural steroid injection Informed consent was obtained and the risks and benefits of the procedure were explained to the patient. The patient was taken to the procedure room and noninvasive monitors placed, including noninvasive blood pressure cuff and pulse oximeter. The neck was prepped using Chloraprep as a cleansing solution. The C6- C7 interspace was viewed using fluroscopy. The skin and subcutaneous tissues were anesthetized using lidocaine 1.5% and a 25-gauge needle. After this an 18- gauge Touhy epidural needle was placed into the C6-C7 interspace under fluroscopy guidance and advanced using loss of resistance to air until the epidural space was encountered. After confirmation of needle placement in the epidural space using contrast dye, a solution containing normal saline, 2 mL and Depo-Medrol 80 mg was incrementally injected into the cervical epidural space.~ The patient tolerated the procedure well with no complications. The patient was observed in the Pain Clinic and then discharged home neurologically intact. Plan and Disposition:: Patient was discharged without incident.
== END 2024-12-15 10:39 | disposition home or self-care (01) ==
LOC: SC.PAINP 09:45
PROVIDERS: PCP Nurse Practitioner Family; Visit Provider Nurse Anesthetist, Certified Registered
DX: M50.30 Other cervical disc degeneration, unspecified cervical region (principal); M54.12 Radiculopathy, cervical region
CPT/HCPCS: 62321; J1010

== ENCOUNTER 2024-12-29 10:22 | Outpatient (POV) | payer OTHER, SELFPAY ==
--- OUTSIDE RECORDS SUMMARY | 2024-12-29 10:24 | XMS_ITS ---
Care Plan - [facility] Created on: December 29, 2024 Sera Matthews : 1970 Sex: Female Author Organization [facility] Address [address] [place] [phone] Phone Care Team Providers Care [place] Operator Name Role Phone Dunia EMERSON, Lalo Unavailable [phone]
--- OUTSIDE RECORDS SUMMARY | 2024-12-29 10:24 | XMS_ITS ---
Author Organization [facility] Address [address] [place] [phone] Phone Care Team Providers Care Vascular Specialists Name Role Phone Dunia EMERSON, May Unavailable [phone] Plan of Treatment No Plan of Treatment Recorded Assessments Includes: Assessments for all patient encounters No Assessments Recorded Medical Equipment - Implanted Devices Includes: Current and historical Devices No Medical Equipment Recorded Medications Administered Includes: Administered Medications in patient's chart No Administered Medications Recorded Results Includes: Results from 12/30/2023 through 12/29/2024 No Results Recorded For Specified Dates History of Present Illness History of Present Illness not supported for this document type No History of Present Illness Recorded Social History No Social History Recorded - Smoking Status Unknown Medical History Includes: Medical History in patient's chart No Medical History Recorded Family History Includes: Family History in patient's chart No Family History Recorded Review of Systems Review of Systems not supported for this document type No Review of Systems Recorded Mental Status No Mental Status Recorded Functional Status No Functional Status Recorded Physical Exam Physical Exam not supported for this document type No Physical Exam Recorded Insurance Includes: Active Insurance Policies Plan Name Member ID Group # Subscriber Relationship Effect samir Dates 1 - [facility] [id number] Sera Rosenthal [facility] Clinical Notes Includes: Signed Clinical Notes starting from 08/23/2022 No Clinical Notes Recorded
--- OUTSIDE RECORDS SUMMARY | 2024-12-29 10:25 | XMS_ITS | Data Portability ---
Author Organization [facility] Address [address] [place] [id number] Assessment No assessment recorded. Plan of Treatment Reminders Order Date Submit Date Provider Last Modified By Organization Details Last Modified Time Details Appointments None recorded. Lab None recorded. Referral None recorded. Procedures nerve conduction study/EMG, upper extremity (PROC) 2022 023 [id number] Not available 13:52:58 Surgeries None recorded. Imaging None recorded. Medication Orders None recorded. Patient TargetsNo targets recorded. Patient InstructionsNo instructions recorded. Reason for Referral None Reported. Problems Name Problem SNOMED Code Status Onset Date Resolution Date Notes Provider Name and Address Organization Details Recorded Time Paresthesia of upper limb [id number] Active 2022 Avani Owusu DO [address] , [place], [id number] , [facility] [place] 13:52:47 Problem Notes None recorded. Procedures Surgical History Date Name Laterality Status Provider Name and Address Organization Details Recorded Time EMG/ Nerve Conduction Study completed [place], [address], [facility] [place] 08/05/2023 13:52:43 Imaging Results None recorded. Procedure Notes None recorded. Medical Equipment None Reported. Medications Name Sig Start Date Stop Date Status Note LastModified by Organization Details LastModified Time furosemide 40 mg tablet active Not Available Not Available Not Available buspirone 5 mg tablet active Not Available Not Available Not Available doxycycline hyclate 100 mg capsule active Not Available Not Available Not Available BD Insulin Syringe 1 mL 25 x 1 active Not Available Not Available Not Available cetirizine 10 mg tablet active Not Available Not Available Not Available ibuprofen 800 mg tablet active Not Available Not Available Not Available hydrocodone 5 mg-acetaminophen 325 mg tablet active Not Available Not Availabl e Not Available prochlorperazine maleate 5 mg tablet active Not Available Not Available Not Available meloxicam 15 mg tablet active Not Available Not Available Not Available famotidine 40 mg tablet active Not Available Not Available Not Available prednisone 20 mg tablet active Not Available Not Available Not Available venlafaxine ER 150 mg capsule,extended release 24 hr active Not Available Not Availabl e Not Available metronidazole 500 mg tablet active Not Available Not Available No t Available phentermine 37.5 mg tablet active Not Available Not Available No t Available aspirin 81 mg tablet,delayed release active Not Available Not Available Not Available tramadol 50 mg tablet active Not Available Not Available Not Available acetaminophen 500 mg tablet active Not Available Not Available No t Available spironolactone 25 mg tablet active Not Available Not Available No t Available meloxicam 7.5 mg tablet active Not Available Not Available Not Available famotidine 20 mg tablet active Not Available Not Available Not Available magnesium oxide 400 mg (241.3 mg magnesium) tablet active Not Available Not Avai lable Not Available baclofen 10 mg tablet active Not Available Not Available Not Available benzonatate 100 mg capsule active Not Available Not Available Not Available hydrocodone 7.5 mg-acetaminophen 325 mg tablet active Not Available Not Availabl e Not Available pantoprazole 40 mg tablet,delayed release active Not Available Not Available Not Available cyanocobalamin (vit B-12) 1,000 mcg/mL injection solution active Not Available Not Available Not Available BD Luer-Chantelle Syringe 3 mL 25 gauge x 1 active Not Available Not Available N ot Available gabapentin 300 mg capsule active Not Available Not Available Not Available diclofenac sodium 75 mg tablet,delayed release active Not Available Not Available Not Available montelukast 10 mg tablet active Not Available Not Available Not Available mupirocin 2 % topical ointment active Not Available Not Avail able Not Available gabapentin 100 mg capsule active Not Available Not Available Not Available polyethylene glycol 3350 17 gram/dose oral powder active Not Available Not Available Not Available neomycin 500 mg tablet active Not Available Not Available Not Available albuterol sulfate HFA 90 mcg/actuation aerosol inhaler active Not Available Not Availa ble Not Available propranolol 20 mg tablet active Not Available Not Available Not Available ondansetron 4 mg disintegrating tablet active Not Available Not Available Not Available losartan 100 mg tablet active Not Available Not Available Not Available amoxicillin 875 mg-potassium clavulanate 125 mg tablet active Not Available Not Available Not Available oxycodone 5 mg tablet active Not Available Not Available Not Available cyclobenzaprine 5 mg tablet active Not Available Not Available No t Available rosuvastatin 40 mg tablet active Not Available Not Available Not Available varenicline tartrate 0.5 mg (11)-1 mg (42) tablets in a dose pack active Not Available Not Available Not Available Symbicort 160 mcg-4.5 mcg/actuation HFA aerosol inhaler active Not Available Not Availa ble Not Available levocetirizine 5 mg tablet active Not Available Not Available No t Available cholecalciferol (vitamin D3) 50 mcg (2,000 unit) capsule active Not Available Not Available Not Available sodium,potassium,m ag sulfates 17.5 gram-3.13 gram-1.6 gram oral soln active Not Available Not Availab le Not Available Myrbetriq 50 mg tablet,extended release active Not Available Not Available Not Available Best Fiber 3 gram/3.5 gram oral powder active Not Available Not Available Not Available Eliquis 2.5 mg tablet active Not Available Not Available Not Available Trulicity 1.5 mg/0.5 mL subcutaneous pen injector active Not Available Not Available Not Available Trulicity 0.75 mg/0.5 mL subcutaneous pen injector active Not Available Not Available Not Available baclofen 5 mg tablet active Not Available Not Available Not Available Gemtesa 75 mg tablet active Not Available Not Available Not Available Ozempic 0.25 mg or 0.5 mg (2 mg/3 mL) subcutaneous pen injector active Not Available Not Available Not Available Vitals Date Recorded Body height Body mass index (BMI) Body weight Heart rate Systolic blood pressure Diastolic blood pressure Provider Name and Address Organization Details Last Updated DateTime 3 170.18 cm 41.8 kg/m2 272631. 16 g 102 /min 114 mm[Hg] 73 mm[Hg] Sera DIETRICH [facility] [place] 3 13:56:18 Social History None recorded. Functional Status None recorded. Mental Status None recorded. Family History Nothing Reported. Medical History No medical history recorded. Gynecological HistoryNo gynecological history recorded. Obstetrics History GPAL:G 0 P 0 0 0 0 Past Encounters Encounter ID Performer Location Encounter Start Date Encounter Closed Date Diagnosis/Indication Diagnosis SNOMED-CT Code Diagnosis ICD10 Code Diagnosis Note [id number] Avani Owusu, DO [facility] [address] [place] [address] 08/05/2023 13:47:57 08/05/2023 14:19:15 Paresthesia of upper limb 29615235 R20.2 Health Concerns Section Related Observation LastModified by Organization Detai ls LastModified Time None Recorded Concern Status LastModified by Organization Details LastModified Time None Recorded Advance Directives Directive None Recorded Payers Encounter Date Sequence Insurance Name Policy Number Policy Younger Covered Member ID Younger Member ID Guarantor Name 08/05/2023 1 [facility] Sera Matthews [id number] Sera Matthews OBGyn Episode No OBEpisode recorded.
[2024-12-29 10:41] VITALS: BP 122/68; PULSE 85; RESP 14; O2SAT 99; BMI 30.4
--- NOTE | 2024-12-29 11:19 | EXP.PAIN.SOA ---
[facility] Disclaimer: The information contained in this section may have been updated after the patient was seen, as this information can be updated by other users. Medical History REINA (obstructive sleep apnea) Cardiac device, implant, or graft infection or inflammation Encounter for loop recorder check Implantable loop recorder present Cryptogenic stroke HLD (hyperlipidemia) Back pain with history of spinal surgery Chest pain Elevated left ventricular end-diastolic pressure (LVEDP) SOB (shortness of breath) on exertion Family history of ischemic heart disease (IHD) Edema of both lower extremities Abnormal electrocardiogram [ECG] [EKG] Palpitations Typical angina Abnormal result of cardiovascular function study REINA (obstructive sleep apnea) Mild to moderate REINA diagnosed November 2020. Symptomatic improvement with CPAP, poor compliance Newly diagnosed diabetes Osteoarthritis of feet, bilateral Surgical History History of bilateral hip replacements History of back surgery Hx of foot surgery left screw Hx of total hip arthroplasty right History of partial hysterectomy has ovaries History of tonsillectomy Family History Other Cancer Coronary artery disease Diabetes Family history of diabetes mellitus type II Family history of hyperlipidemia Family history of hypothyroidism Family history of stroke Heart attack Social History Smoking Status: Never smoker smoking status start date: 05/01/23 alcohol intake: never substance use type: denies use current occupational status: other Travel in the last 8 weeks: None household members: significant other housing: house lives independently: Yes marital status: single education level: high school service: No 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 Have you lived/traveled outside [place] in past 30 days?: No Contact w/someone who lives/traveled outside [place] past 30 days?: No Exposure to someone with infectious disease in past 14 days?: No Do you have a fever (greater than 100.4 F or 38 C)?: No Have you tested positive for COVID-19: No Exposed to someone with COVID-19 in past 14 days?: No Do you have a sore throat?: No Do you have a cough?: No Do you have any weakness?: No Do you have any diarrhea?: No Are you experiencing any unusual bleeding?: No Do you have any muscle aches/pain?: No Do you have any abdominal pain?: No Are you experiencing loss of taste or smell?: No PM Subjective & Objective Subjective Subjective:: Patient is a pleasant 54-year-old female who presents today for follow-up of her cervical epidural steroid injection C6-C7 on 12/15/2024. Today she rates her pain a 4 out of 10. She states that she has had at least 75% improvement following this injection and feels like it is still helping. Patient does state that she is still having trouble with her right shoulder however is scheduled for that injection coming up on the . 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 Patient is currently managed with gabapentin 300 mg twice a day, Jean 5 mg twice a day and Flexeril 10 mg at bedtime. She denies any side effects. Her Leno has been reviewed and is appropriate. Review of Systems: General: No recent weight changes, no fever, no sleep disturbances Respiratory: No cough, no shortness of air, no recurring pulmonary infections Cardiovascular/peripheral vascular: No chest pain, no palpitations, no edema, no shortness of breath Gastrointestinal: No new onset incontinence, normal bowel movements reported Genitourinary: No new onset incontinence Musculoskeletal: right shoulder pain Psychiatric: [Normal mood/affect] Neurological: [Denies weakness in extremities], [denies balance issues] Pain at rest (0-10 scale): 4 Objective Objective:: Physical Exam: General: Alert and oriented x3, no acute distress, pleasant and cooperative Lungs: Respirations even and unlabored, symmetrical chest expansion Eyes: PERRL Musculoskeletal: Flexion and extension of right shoulder somewhat guarded secondary to pain, [antalgic gait noted] Neurological: Speech clear, no gross sensory deficit Has patient had previous pain injection?: Yes Percent improvement in pain since last injection: 75% Conservative treatment options previously tried: Home exercise plan Length of treatment: Longer than 12 weeks Meds Home Medications and Allergies Home Medications ?Medication ?Instructions ?Recorded ?Confirmed ?Type losartan 100 mg tablet 100 mg PO DAILY 09/07/23 12/15/24 History varenicline tartrate 1 mg tablet 1 mg PO DAILY 09/07/23 12/15/24 History venlafaxine 150 mg 150 mg PO DAILY 09/07/23 12/15/24 History capsule,extended release 24 hr rosuvastatin 40 mg tablet See Rx Instructions .Route 09/30/23 12/15/24 Rx .COMPLEX #90 tabs cyanocobalamin (vitamin B-12) 1,000 mcg IM QMONTH 10/09/23 12/15/24 History 1,000 mcg/mL injection solution famotidine 40 mg tablet 40 mg PO DAILY 10/09/23 12/15/24 History montelukast 10 mg tablet 10 mg PO HS 10/09/23 12/15/24 History primidone 50 mg tablet 50 mg PO BID 10/09/23 12/15/24 History dapagliflozin propanediol 5 mg 5 mg PO DAILY 11/04/23 12/15/24 History tablet (Farxiga) albuterol sulfate 90 mcg/actuation 1 - 2 puff inhalation Q4-6H PRN 12/02/23 12/15/24 Rx aerosol inhaler (Proventil HFA) shortness of breath or wheezing #8.5 grams aspirin 81 mg tablet,delayed 81 mg PO DAILY 12/02/23 12/15/24 History release cholecalciferol (vitamin D3) 25 25 mcg PO DAILY 12/02/23 12/15/24 History mcg (1,000 unit) tablet furosemide 40 mg tablet 40 mg PO DAILY 12/23/23 12/15/24 History tirzepatide 5 mg/0.5 mL 5 mg SQ WEEKLY 03/02/24 12/15/24 History subcutaneous pen injector (Mounjaro) syringe with needle 3 mL 25 gauge #1 ea 07/09/24 12/15/24 History x 1 (BD Luer-Chantelle Syringe) tirzepatide 10 mg/0.5 mL 10 mg SQ QWEEK 07/09/24 12/15/24 History subcutaneous pen injector (Mounjaro) pantoprazole 40 mg tablet,delayed 40 mg PO DAILY #30 tabs 08/18/24 12/15/24 Rx release (Protonix) gabapentin 300 mg capsule 300 mg PO BID #60 caps 10/13/24 12/15/24 Rx cyclobenzaprine 10 mg tablet 10 mg PO BID #60 tabs 11/13/24 12/15/24 Rx hydrocodone 5 mg-acetaminophen 325 1 tab PO BID #60 tabs 11/13/24 12/15/24 Rx mg tablet nystatin 100,000 unit/gram topical 1 applic topical DIRECTED 11/17/24 12/15/24 History cream primidone 50 mg tablet 50 mg PO HS Tremor #90 tabs 11/17/24 12/15/24 Rx New Prescriptions to Start Prescriptions: Allergies Allergy/AdvReac Type Severity Reaction Status Date / Time No Known Allergies Allergy Verified 12/15/24 11:13 Assessment and Plan *Assessment and plan (1) Right shoulder pain: Status: Acute Category: Medical Code(s): M25.511 - Pain in right shoulder Plan Patient has had significant improvement following her cervical epidural and does not require any additional interventions at this time. Patient is already scheduled for a right shoulder injection coming up this next Saturday. I did supervisor counseling and guidance her that if it does improve between now and then that she can always call and cancel this appointment. Patient will not be given a follow-up during today's office visit however she was recommended if she ends up canceling the injection that she will need a 1 month follow-up. I will make sure that she has refills on her medications. Patient agrees with this plan of care. Patient has been instructed to contact the clinic with any concerns before the next appointment. Dr. Barragan has reviewed this note and agrees with this plan of care. This note was dictated using voice recognition software and make contain errors or omissions. All injections are used with Lidocaine, Bupivacaine and Depo Medrol. Occasionally urine drug screen is needed to verify patient's compliance with our office pain contract. This is ordered based off specific treatments related to chronic pain with the potential to abuse certain medications.
== END 2024-12-29 23:59 | disposition home or self-care (01) ==
PROVIDERS: PCP Nurse Practitioner Family; Visit Provider Nurse Practitioner Family
DX: M25.511 Pain in right shoulder (principal); Z96.643 Presence of artificial hip joint, bilateral; Z79.899 Other long term (current) drug therapy
CPT/HCPCS: 99212; G0463

== ENCOUNTER 2025-01-05 11:07 | Day surgery (SDC) | payer OTHER, SELFPAY ==
[2025-01-05 11:16] VITALS: BP 116/63; PULSE 70; RESP 16; TEMP 36.3; O2SAT 98; BMI 30.4
[2025-01-05] MEDS: DEXAMETHASONE 10MG/ML 1ML VIAL 10 MG (11:18)
[2025-01-05 11:19] VITALS: BP 131/81; PULSE 79; RESP 18; O2SAT 97
[2025-01-05] MEDS: BUPIVACAINE 0.25% 10ML INJ 25 MG IJ (11:19)
[2025-01-05] MEDS: LIDOCAINE 1% 5ML PF VIAL 5 ML (11:19)
[2025-01-05 11:20] VITALS: BP 131/81; PULSE 79; RESP 18; O2SAT 97
--- NOTE | 2025-01-05 11:23 | EXP.PAIN.PRO ---
Procedure Date: 01/05/25 Time: 11:10 Anesthesiologist:: Mello Manzo CRNA Complications:: None Pre-procedure Diagnosis:: DJD right shoulder. Chronic right shoulder pain. Post-procedure Diagnosis:: Same. Indications for Procedure:: Patient is a very pleasant 54-year-old female who comes our clinic today for right intra-articular shoulder injection of cortisone local anesthetic. Patient has 5/5 strength in right arm. However, limited range of motion secondary to right shoulder pain. She describes right shoulder pain as constant, dull, aching. Nighttime is when pain is more intense. Trying to sleep has been difficulty due to right shoulder pain with positioning. She rates her pain 7/10. Procedure Details:: Procedure Details: Right shoulder intra-articular injection Informed consent was obtained risk and benefits of the procedure were explained to the patient. Patient was taken to the procedure room. The right shoulder was prepped using ChloraPrep. A 25-gauge needle was used posteriorly to inject 10 mL bupivacaine 0.25% and Depo-Medrol 40 mg. Patient tolerated procedure well with no complications. Plan and Disposition:: Patient was discharged without incident.
[2025-01-05 11:24] VITALS: BP 116/71; PULSE 80; RESP 16; O2SAT 97
== END 2025-01-05 11:24 | disposition home or self-care (01) ==
PROVIDERS: PCP Nurse Practitioner Family; Visit Provider Nurse Anesthetist, Certified Registered
DX: M19.011 Primary osteoarthritis, right shoulder (principal); M25.511 Pain in right shoulder; G89.29 Other chronic pain; G47.30 Sleep apnea, unspecified; R63.4 Abnormal weight loss; Z86.73 Personal history of transient ischemic attack (TIA), and cerebral infarction without residual deficits
CPT/HCPCS: 20610; J0665; J1100; J2003

== ENCOUNTER → 2025-01-05 20:10 | Outpatient (CLI) | payer OTHER, SELFPAY ==
--- OUTSIDE RECORDS SUMMARY | 2025-01-05 20:14 | XMS_ITS ---
Care Plan - [facility], [facility] Created on: January 05, 2025 Sera Matthews : 1970 Sex: Female Author Organization [facility] , [facility] Address [address] [place] [phone] Phone Care Team Providers Care Envelope Folding Machine Operator Name Role Phone Dunia EMERSON, Lalo Unavailable [phone]
--- OUTSIDE RECORDS SUMMARY | 2025-01-05 20:14 | XMS_ITS ---
Author Organization [facility] , [facility] Address [address] [place] [phone] Phone Care Team Providers Care Sample Maker Hand Name Role Phone Dunia EMERSON, May Unavailable [phone] Plan of Treatment No Plan of Treatment Recorded Assessments Includes: Assessments for all patient encounters No Assessments Recorded Medical Equipment - Implanted Devices Includes: Current and historical Devices No Medical Equipment Recorded Medications Administered Includes: Administered Medications in patient's chart No Administered Medications Recorded Results Includes: Results from 01/06/2024 through 01/05/2025 No Results Recorded For Specified Dates History [...] Subscriber Relationship Effect samir Dates 1 - [facility] [id number] Sera Rosenthal [facility] Clinical Notes Includes: Signed Clinical Notes starting from 08/23/2022 No Clinical Notes Recorded
--- OUTSIDE RECORDS SUMMARY | 2025-01-05 20:14 | XMS_ITS | Data Portability ---
Author Organization [facility]PH[facility] Address [address] [place] [address] Care Team Providers Care Experienced Truck Driver Name Role Phone GIOVANNY RODRIGUEZ Referring Provider [phone] JONATHON ODONNELL Primary Care Provider Assessment Encounter Date Assessment Date Assessment LastModified by Organization Details LastModified Time 11/22/2022 11/22/2022 Imaging: C-spine MRI 10-15-2022 radiology report imaging reviewed by myself and Dr. Delgado -C5-6 moderate bilateral foraminal stenosis -No severe central narrowing or severe foraminal narrowing of cervical spine Assessment and plan:Patient is a 52-year-old female status post L3-S1 PLIF on 08/11/[address] Delgado presents for cervical follow-up with MRI. Discussed imaging with patient. Patient states her pain is not affecting ADLs and she would like to defer any surgical intervention at this time and continue with conservative therapy. We will have patient see her marine painter, Dr. Barragan. We will have patient referred to neurology for tremor evaluation per patient. Patient may follow-up as needed. Patient verbalized understanding of instructions and is agreeable to plan. -Seen by Dr. Delgado and myself [email or web address] Not available 11/22/2022 17:11:07 04/24/2023 04/24/2023 Essential tremor . She is bothered by the problem and would like to take a medicine. Will try propranolol 20 mg bid. Possible side effects discussed. Dose could be increased if needed and tolerated. WIll check TSH to rule out hyperthyroidism since tremor has been worse the past year. f/u few mos but she knows to call anytime if needed. [email or web address] Not available 04/24/2023 08:45:11 06/06/2023 06/06/2023 Ms. Matthews is a 52-year-old female status post an L3-S1 PLIF in 2020 who is following up today for cervical complaints. Of note she was hospitalized just a few days ago at with a small acute infarct in the right parietal lobe as well as a small right frontal subarachnoid hemorrhage. She has had severe headaches since her pain pump trial with Dr. Barragan last week. She is going to reach out to his office about whether she is a candidate for a blood patch. She already had this appointment scheduled to discuss whether she would be a candidate for cervical fusion. We discussed that cervical surgery would be most effective at improving arm pain, but is less predictable improving neck pain. She has a nerve conduction study pending in the next few weeks. I am going to have her follow-up in about 6 weeks after she has had the nerve study. We discussed that she would potentially be a candidate for C5-6 ACDF depending on the results. The patient and her daughter understand and agree with this plan. [email or web address] Not available 06/06/2023 11:19:53 08/12/2023 08/12/2023 1. Essential tremor. She did not see benefit with propranolol. 2. Stroke. This is not straightforward. She had bad headache. This occurred one day after intrathecal injection and was positional, so [id number] e headache would be a good explanation. However, the MRI at showed puncture right parietal acute stroke on DWI and most notably convexity subarachnoid hemorrhage R>L, which would not be expected with a small vessel ischemic stroke or any usual stroke. As far as I know, this was not explained at . Convexity SAH could be seen with reversible cerebral vasoconstriction syndrome, which could also explain the headache and the punctate focus of DWI abnl. I assume she had CTA in [place]. Cortical vein thrombosis also might be a consideration. 3. Hand numbness - ?ulnar neuropathy - NCS was recently done and per pt normal. Discussed these things above. Will try primidone for tremor I do not have images to review and only have limited records from . At least I am going to try to get records from the ER in [facility] [place] to be sure that CTA was done and to see what CT showed there. f/u few mos. [email or web address] Not available 08/12/2023 17:23:54 Plan of Treatment Reminders Order Date Submit Date Provider Last Modified By Organization Details Last Modified Time Details Appointments None recorded. Lab TSH, serum or plasma 2022 023 [facility], [facility] [place], [phone], 09:59:16 Referral None recorded. Procedures None recorded. Surgeries None recorded. Imaging None recorded. Medication Orders primidone 50 mg tablet 2022 023 [facility], [address] [place] [address], [id number], 16:49:30 propranolol 20 mg tablet 2022 023 [facility], [address] [place] [address], [id number], 3 16:47:57 Patient TargetsNo targets recorded. Patient Instructions Encounter Date Encounter Id Patient Instructions Last Modified By Organization Details Last Modified Time 11/22/2022 [id number] CATEGORY DESCRIPTION MINUTES Prepare to see the patient (e.g. review of tests) 5 Obtain/review separately obtained history 5 Perform medically appropriate exam/evaluation 5 Order medications, tests, or procedures 5 Traveling Engineer/educate the patient/family/car egiver 5 Refer/communicate w/other healthcare professionals 5 Document clinical information into health record 5 Non-billable independent interp of results Non-billable care coordination TOTAL TIME 35 [id number] (15-29) 17163 (30-44) [id number] (45-59) 29941 (60-74) 37054 (10-19) 03319 (20-29) 16941 (30-39) 63763 (40-54) [email or web address] Not available 11/22/2022 17:11:44 05/27/2023 [id number] 1. Discussed options for treatment of sleep apnea. Full risks, complications, and benefits of operative versus non-operative intervention have been thoroughly discussed. Understanding was expressed, informed consent given, and we will proceed with the discussed operative treatment plan. There were no questions for me at the end of the office visit. 2. Excision and biopsy of left external ear performed. Full risks, complications, and benefits of non-operative intervention have been thoroughly discussed. Understanding was expressed, informed consent given, and we will proceed with the discussed treatment plan. There were no questions for me at the end of the office visit- will call pt with results 3. Directed pt to use Neosporin ointment along biopsy site as directed 4. Follow up per pathology results, or prn [email or web address] Not available 05/27/2023 12:06:09 2 different issues. 1) REINA We discussed options for sleep apnea including diet and lifestyle changes/weight loss, oral appliances, CPAP, and surgery. We discussed that oral appliances are typically more effective for mild to moderate sleep apnea and the risks of dental issues/TMJ associated with them. We discussed that CPAP is the gold standard of treatment for REINA. We discussed with surgical procedure's patient would potentially be a candidate for based of their PSG, BMI, and anatomy. Mild sleep apnea on a 2020 sleep study. Previous tonsillectomy. 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 Sleep apnea not severe enough to qualify for the hypoglossal nerve stimulator implant. She also would need to lose weight. Recommended weight loss and if she is able to get her BMI around 32 then we could see about retesting her. 2) raised skin lesion in her left external ear. Biopsied today. Somewhat consistent with an inflamed inclusion cyst but we will see what pathology shows and let her know. [email or web address] Not available 05/27/2023 12:38:30 08/12/2023 [id number] medical record request* - request notes from ER in [place], from April. [email or web address] Not available 08/21/2023 08:32:31 Reason for Referral None Reported. Results Created Date Observation Date Name Description Value Unit Range Abnormal Flag Note LastModifiedBy Organization Detail LastModifiedTime 04/24/20 23 04/24/2023 TSH TSH 1.240 u[IU] /mL 0.270- 4.200 normal Not Available [facility] [address], [place], [address], 04/24/2023 09:59:16 05/27/20 23 05/27/2023 SURGI CYNDY surgical SEE BELOW normal Depar tment of Patho logy Surgi cyndy Patho logy Repor t NAME: SERA HARDIN PATH. :SC-2 32 Copy to: Diagn osis: Left ear, super ior chonc quijano bowl lesio n, excis ion: -Frag ments consi stent with epide rmoid cyst. SOURC E OF SPECI MEN: EAR BIOPS Y, LEFT CLINI CYNDY INFOR MATIO N: H93.9 2 Gross Descr iptio n: Recei josue in forma wendy label ed with patie nt's name and desig nated as left ear are three fragm ents of pale schmidt tissu e rangi ng in size from 0.2 to 0.6 cm. Entir amador submi tted in one casse tte. LP 05/27 08:07 PM Micro scopi c Descr iptio n: Secti ons show multi ple fragm ents of kerat in debri s and squam ous epith elium consi stent with benig n cyst linin g. One small fragm ent of skin is prese nt conta ining multi ple small cysts . WINSTON BILLINGSLEY MD Chrissy d Out Date: 05/28 11:10 Page 1 of 1 Not Available [facility] [address] [place] [address], [phone], 05/28/2023 11:10:37 Result Notes None recorded. Problems Name Problem SNOMED Code Status Onset Date Resolution Date Notes Provider Name and Address Organization Details Recorded Time Cervical radiculopat hy 94667537 Active 2017 CARLOS DELGADO MD [address] [place] [address], [phone], [facility] 09:56:11 Lumbar spondylolis thesis 4179746219800 02 Active 2020 ROBINSON BERNARD PA-C [address] [place] [address], [phone], [facility] 10:11:44 Problem Notes None recorded. Procedures Surgical History Date Name Laterality Status Provider Name and Address Organization Details Recorded Time 05/27/20 23 Excision BN Lesion; face, ears, eyelid, nose, lips, mucous membrane completed WINSTON SHEA MD [address] [place] [address], [phone], [facility] 05/27/2023 12:36:39 Other completed Rebecca Chand [facility] 01/09/2018 09:03:08 procedure on tonsils completed [facility] 08/27/2022 14:57:19 Partial Hysterectomy completed [facility] 08/27/2022 14:57:28 Back Surgery completed [facility] 08/27/2022 14:57:33 total replacement of hip completed [facility] 08/27/2022 14:57:41 Imaging Results None recorded. Procedure Notes None recorded. Medical Equipment None Reported. Allergies No known drug allergies Medications Name Sig Start Date Stop Date Status Note LastModified by Organization Details LastModified Time losartan 50 mg tablet 08/27 completed Not Available Not Available Not Available celecoxib 200 mg capsule 08/27 completed Not Available Not Available Not Available fluoxetine 40 mg capsule 07/13 completed Not Available Not Available Not Available cyclobenzap rine 10 mg tablet Take 1 tablet 3 times a day by oral route as needed. 08/27 completed Not Available Not Available Not Available furosemide 40 mg tablet 04/24 completed Not Available Not Available Not Available metformin 500 mg tablet 09/24 completed Not Available Not Available Not Available primidone 50 mg tablet 1/2 per day x first week, then 1/2 po bid x one week, then 1/2 am and 1 in pm, then 1 bid. 2022 active Not Available Not Available Not Avai lable promethazin e-DM 6.25 mg-15 mg/5 mL oral syrup 07/13 completed Not Available Not Available Not Available venlafaxine 75 mg tablet Take 1 tablet every day by oral route. 08/27 completed Not Available Not Available Not Available BD Insulin Syringe 1 mL 25 x 1 08/27 completed Not Available Not Available Not Available cetirizine 10 mg tablet active Not Available Not Available Not Available azithromyci n 250 mg tablet 08/27 completed Not Available Not Available Not Available ibuprofen 800 mg tablet 07/13 completed Not Available Not Available Not Available hydrocodone 5 mg-acetamin ophen 325 mg tablet 08/27 completed Not Available Not Available Not Available meloxicam 15 mg tablet 08/27 completed Not Available Not Available Not Available ondansetron HCl 4 mg tablet 07/13 completed Not Available Not Available Not Available prednisone 20 mg tablet 08/27 completed Not Available Not Available Not Available dextroamphe tamine-amph etamine 10 mg tablet 08/27 completed Not Available Not Available Not Available methylpredn isolone 4 mg tablet 08/27 completed Not Available Not Available Not Available venlafaxine ER 150 mg capsule,ext ended release 24 hr active Not Available Not Available Not Available melatonin 3 mg tablet 08/27 completed Not Available Not Available Not Available sulfamethox azole 800 mg-trimetho prim 160 mg tablet 07/13 completed Not Available Not Available Not Available omeprazole 40 mg capsule,del ayed release 07/13 completed Not Available Not Available Not Available tramadol 50 mg tablet 08/27 completed Not Available Not Available Not Available spironolact one 25 mg tablet 04/24 completed Not Available Not Available Not Available hydrocortis one acetate 25 mg rectal suppository 08/27 completed Not Available Not Available Not Available meloxicam 7.5 mg tablet 05/27 completed Not Available Not Available Not Available hydrocortis one 2.5 % topical cream with perineal applicator 08/27 completed Not Available Not Available Not Available amoxicillin 875 mg tablet 07/13 completed Not Available Not Available Not Available benzonatate 100 mg capsule 08/27 completed Not Available Not Available Not Available pantoprazol e 40 mg tablet,abimael yed release active Not Available Not Available Not Available cyanocobala min (vit B-12) 1,000 mcg/mL injection solution active Not Available Not Available Not Available triamcinolo ne acetonide 0.1 % topical ointment 07/13 completed Not Available Not Available Not Available dextroamphe tamine-amph etamine 20 mg tablet Take 1 tablet every day by oral route. 07/13 completed Not Available Not Available Not Available lisinopril 10 mg tablet 08/27 completed Not Available Not Available Not Available TheraTears 0.25 % eye drops PRN 04/24 completed Not Available Not Available Not Available BD Luer-Chantelle Syringe 3 mL 25 gauge x 1 05/27 completed Not Available Not Available Not Available mupirocin calcium 2 % topical cream 07/13 completed Not Available Not Available Not Available gabapentin 300 mg capsule 07/13 completed Not Available Not Available Not Available diclofenac sodium 75 mg tablet,abimael yed release Take 1 tablet twice a day by oral route as needed. 04/24 completed Not Available Not Available Not Available etodolac 400 mg tablet 08/27 completed Not Available Not Available Not Available montelukast 10 mg tablet active Not Available Not Available Not Available mupirocin 2 % topical ointment 07/13 completed Not Available Not Available Not Available gabapentin 100 mg capsule 08/27 completed Not Available Not Available Not Available oxaprozin 600 mg tablet 08/27 completed Not Available Not Available Not Available oxycodone-a cetaminophe n 7.5 mg-325 mg tablet Take 1 tablet every 6 hours by oral route as needed. 08/27 completed Not Available Not Available Not Available methylpredn isolone 4 mg tablets in a dose pack as directed on package 08/27 completed Not Available Not Available Not Available docusate sodium 250 mg capsule 08/27 completed Not Available Not Available Not Available propranolol 20 mg tablet 1/2 tablet twice bid x first week then one bid 08/12 completed Not Available Not Available Not Available losartan 100 mg tablet active Not Available Not Available Not Available fluoxetine 20 mg capsule 07/13 completed Not Available Not Available Not Available fluticasone propionate 50 mcg/actuati on nasal spray,suspe nsion 08/27 completed Not Available Not Available Not Available doxycycline hyclate 100 mg tablet 07/13 completed Not Available Not Available Not Available dextroamphe tamine-amph etamine 5 mg tablet 08/27 completed Not Available Not Available Not Available naproxen 500 mg tablet 08/27 completed Not Available Not Available Not Available oxycodone 5 mg tablet 08/27 completed Not Available Not Available Not Available cyclobenzap rine 5 mg tablet Take 1 tablet 3 times a day by oral route as needed. 04/24 completed Not Available Not Available Not Available Premarin 0.625 mg tablet 07/13 completed Not Available Not Available Not Available bupropion HCl XL 300 mg 24 hr tablet, extended release Take 1 tablet every day by oral route. 08/27 completed Not Available Not Available Not Available bupropion HCl XL 150 mg 24 hr tablet, extended release 08/27 completed Not Available Not Available Not Available darifenacin ER 15 mg tablet,exte nded release 24 hr Take 1 tablet every day by oral route. 05/27 completed Not Available Not Available Not Available Pain Relief Extra Strength (acetaminop hen) 500 mg tablet 08/27 completed Not Available Not Available Not Available Boostrix Tdap 2.5 Lf unit-8 mcg-5 Lf/0.5 mL intramuscul ar syringe 07/13 completed Not Available Not Available Not Available famotidine 40mg 2X day active Not Available Not Available No t Available ProAir HFA 90 mcg/actuati on aerosol inhaler 07/13 completed Not Available Not Available Not Available cholecalcif abel (vitamin D3) 25 mcg (1,000 unit) tablet 08/27 completed Not Available Not Available Not Available levocetiriz ine 5 mg tablet Take 1 tablet every day by oral route. active Not Available Not Available No t Available diclofenac 1 % topical gel 08/27 completed Not Available Not Available Not Available sodium,pota ssium,mag sulfates 17.5 gram-3.13 gram-1.6 gram oral soln 08/27 completed Not Available Not Available Not Available Myrbetriq 50 mg tablet,exte nded release Take 1 tablet every day by oral route. 05/27 completed Not Available Not Available Not Available Trokendi XR 100 mg capsule, extended release 08/27 completed Not Available Not Available Not Available Trulicity 1.5 mg/0.5 mL subcutaneou s pen injector 04/24 completed Not Available Not Available Not Available Trulicity 0.75 mg/0.5 mL subcutaneou s pen injector 04/24 completed Not Available Not Available Not Available Flucelvax Quad 4124-9634 (PF) 60 mcg (15 mcg x 4)/0.5 mL IM syringe 07/13 completed Not Available Not Available Not Available Ozempic 0.25 mg or 0.5 mg (2 mg/1.5 mL) subcutaneou s pen injector Inject 1 mL every week by subcutane ous route. 05/27 completed Not Available Not Available Not Available rosuvastati n 40 mg sprinkle capsule Take 1 capsule every day by oral route. active Not Available Not Available No t Available Gemtesa 75 mg tablet Take by oral route for 30 days. 04/24 completed Not Available Not Available Not Available Vitals Date Recorded Body height Body mass index (BMI) Body weight Heart rate Oxygen saturation Oxygen saturation in Arterial blood by Pulse oximetry Systolic blood pressure Diastolic blood pressure Provider Name and Address Organization Details Last Updated DateTime 3 165.1 cm 38.3 kg/m2 804210. 35 g 87 /min 94 % 94 % 152 mm[Hg] 96 mm[Hg] Edvincharlie Nicole [facility] 3 08:20:35 Date Recorded Body height Body mass index (BMI) Body weight Body temperature Heart rate Systolic blood pressure Diastolic blood pressure Provider Name and Address Organization Details Last Updated DateTime 3 165.1 cm 38.5 kg/m2 767425. 64 g 97.8 [degF] 71 /min 119 mm[Hg] 74 mm[Hg] Lawanda Stu [facility] 3 10:56:24 Date Recorded Body height Body mass index (BMI) Body weight Systolic blood pressure Diastolic blood pressure Provider Name and Address Organization Details Last Updated DateTime 06/06/2023 165.1 cm 38.4 kg/m2 446487.8 4 g 122 mm[Hg] 82 mm[Hg] Rebecca Chand [facility] 3 10:49:49 Date Recorded Body height Body mass index (BMI) Body weight Heart rate Oxygen saturation Oxygen saturation in Arterial blood by Pulse oximetry Systolic blood pressure Diastolic blood pressure Provider Name and Address Organization Details Last Updated DateTime 3 165.1 cm 38.1 kg/m2 563882. 65 g 69 /min 96 % 96 % 124 mm[Hg] 78 mm[Hg] Baylee Khan [facility] 16:22:56 Social History Question Answer Notes LastModified by Organizat ion Details LastModified Time Tobacco Smoking Status Former Smoker Rebecca Chand [facility], [facility] 01/09/2018 09:02:51 What Is Your Level Of Alcohol Consumption? None [email or web address] Information not available 08/27/2022 What Was The Date Of Your Most Recent Tobacco Screening? 04/24/2023 [email or web address] Information not available 04/24/2023 What Is Your Relationship Status? [email or web address] Information not available 08/27/2022 Do You Use Any Illicit Or Recreational Drugs? No [email or web address] Information not available 08/27/2022 Has Tobacco Cessation Counseling Been Provided? No [email or web address] Information not available 08/27/2022 Sex: Unknown Functional Status None recorded. Mental Status None recorded. Family History Relationship Description Onset Age of this Age Resolved Age Notes LastModified by Organization Details LastModified Time Father Diabetes mellitus [email or web address] Not available 2022 10:58:37 Father Hypertensive disorder [email or web address] Not available 2022 10:58:09 Father Kidney disease [email or web address] Not available 2022 10:58:49 Father Family history of malignant neoplasm KIDNEY [email or web address] Not available 2021 14:56:36 Father Heart disease Not available 2022 10:57:58 Father Acute stroke [email or web address] Not avai lable 05/27/2023 10:58:28 Unspecified Relation Myocardial infarction [email or web address] Not available 11/2017 09:03:42 Unspecified Relation Cerebrovascu lar accident [email or web address] Not available 09:03:48 Brother Hypertensive disorder [email or web address] Not available 2022 10:58:11 Brother Diabetes mellitus [email or web address] Not available 2022 10:58:42 Medical History Condition Response Depression Y COPD Y Anxiety Disorder Y Arthritis Y Headaches Y Sleep Disorder Y Diabetes Y Hypertension Y Gynecological HistoryNo gynecological history recorded. Obstetrics History GPAL:G 0 P 0 0 0 0 Immunizations Vaccine Type Date Status Note Provider Nam e and Address Organization Details Recorded Time Influenza, recombinant, quadrivalent, PF 2 completed Rebecca Mannie [facility] 09/24/2022 10:24:35 COVID-19, mRNA, LNP-S, PF, 100 mcg/0.5mL dose or 50 mcg/0.25mL dose 1 completed Rebecca Mannie [facility] 09/24/2022 10:24:35 Hep A, adult 9 completed Rebecca Mannie [facility] 09/24/2022 10:24:35 Influenza, split virus, quadrivalent, preservative 7 completed Rebecca Mannie [facility] 09/24/2022 10:24:35 COVID-19, mRNA, LNP-S, PF, 100 mcg/0.5mL dose or 50 mcg/0.25mL dose 1 completed Rebecca Mannie [facility] 09/24/2022 10:24:35 Influenza, recombinant, quadrivalent, PF 1 completed Rebecca Mannie [facility] 09/24/2022 10:24:35 DTaP, 5 pertussis antigens 7 completed Rebecca Mannie [facility] 09/24/2022 10:24:35 COVID-19, mRNA, LNP-S, bivalent, PF, 50 mcg/0.5 mL or 25mcg/0.25 mL dose 2 completed Rebecca Mannie [facility] 09/24/2022 10:24:35 Influenza, split virus, quadrivalent, preservative 8 [facility] 10:24:35 Past Encounters Encounter ID Performer Location Encounter Start Date Encounter Closed Date Diagnosis/Indication Diagnosis SNOMED-CT Code Diagnosis ICD10 Code Diagnosis Note [id number] CARLOS DELGADO MD [facility] [address] [place] [address] 01/09/2018 08:54:11 01/09/2018 10:57:52 Cervical radiculopathy 20658215 M54.12 [id number] Abby Gama [facility] [address] [place] [address] 07/13/2021 09:16:39 07/14/2021 08:20:43 Lumbar spondylolisthesis 2203712051 01388 M43.16 50-year-ol d female with right greater than left lumbar radiculopa thy refractory to conservati ve measures. Patient has weakness in the right EHL and diminished sensation in an L5 dermatomal pattern on the right. Patient's case an MRI was reviewed with Dr. Delgado. The patient has an L4-5 spondyloli sthesis and severe canal stenosis. She also has an L3-4 left paracentra l disc herniation in the left lateral recess and foramen. She also has lateral recess stenosis at L5-S1. The patient is exhausted conservati ve treatments . Dr. Delgado is recommendi ng an L3-S1 plus or minus iliac bolts with aerobic. We discussed this procedure in detail including risks benefits and expected postoperat samir course. Risks include reaction to anesthesia , infection, pseudoarth rosis, developmen t of adjacent level disease, spinal fluid leak. The patient agrees to proceed. We will have her meet with our central scheduler today to schedule. We'll retain the patient's CD to use on the day of surgery. We will also check a set of standing flexion extension x-rays. pt seen by myself and dr delgado Addendum: Ordering a custom fitted LSO back brace to reduce pain by restrictin g mobility of the spine. [id number] Rebecca Mannie SURGERY SCHEDULE [address] [place] [address] 08/24/2021 15:22:47 08/25/2021 08:55:41 [id number] [facility] NEUROSURG [facility] [address] [place] [address] 08/28/2021 13:44:23 08/29/2021 08:20:20 [id number] CARLOS DELGADO MD NEUROSURG [facility] [address] [place] [address] 09/18/2021 10:47:26 09/19/2021 08:55:14 Postoperative care [id number] Z48.89 [id number] CARLOS DELGADO MD NEUROSURG [facility] [address] [place] [address] 11/27/2021 09:20:42 11/27/2021 10:11:07 Postoperative care [id number] Z48.89 Patient is a 51-year-ol d female status post L3-S1 fusion on 08/11/[address] Delgado. Patient presents today for second follow-up. Patient doing okay at this time but still having some continued right lower extremity pain. Pain is in the right lumbar and buttock and radiates around to the groin and anterior thigh on the right side stopping at the knee. This is where her pain was prior to surgery but she feels like it is continued to get worse after surgery. She has not done formal therapy but has done at home exercises. Using Tylenol for the pain and nothing else. She is having some trouble doing ADLs due to the pain. She has not been back to work yet. Reviewed case and imaging with Dr. Delgado. Gave patient printed x-rays to take home. X-rays today look stable. We do not believe there is going to be anything we can do surgically but to address her continued pain we would like a CT of the lumbar spine as well as MRI without contrast. We will see the patient back in 3 weeks for reassessme nt. We will keep her off work until that time. If imaging is negative for anything to do surgically we would recommend formal physical therapy and possibly a visit to an orthopedic practice to make sure she does not have any primary hip etiology attributin g to her pain. She knows to call with questions in the meantime and is happy with this plan. Patient seen by myself and Dr. Delgado today AP lateral lumbar x-rays today at the [facility]? Show stable placement of hardware with no evidence of loosening or complicati on [id number] JUAN LUIS HAWKINS PA-C [facility] [place] [address] [place] [address] 12/01/2021 10:51:31 12/01/2021 12:53:02 Pain of right hip joint [id number] M25.551 Patient does have positive Ivory with tenderness over greater trochanter . Pain is more posterior as well into the piriformis . Plan: Medrol Dosepak and physical therapy referral. Hold on greater trochanter ic bursa injection today. [id number] CARLOS DEL[facility]AD[facility] [address] [place] [address] 12/25/2021 11:28:35 12/26/2021 16:23:20 Lumbar radiculopathy [id number] M54.16 [id number] CARLOS DELGADO MD NEUROSURG [facility] [address] [place] [address] 03/19/2022 11:11:38 03/19/2022 15:15:32 Lumbar radiculopathy [id number] M54.16 Patient is a 51-year-ol d female status post L3-S1 PLIF on 08/11/[address] Delgado. Presents today for a fourth postoperat samir visit. Patient has continued to be symptomati c after surgery. At the last visit she was complainin g of pain into the right hip, groin, and posterior right lower extremity to the calf. She said it did not feel different than her preoperati ve pain. We did review new CT and MRI at that time which were negative for hardware failure or adjacent level disease. We did keep patient off work until this visit. She is taking Aleve and nothing else. She has not any postoperat samir physical therapy or pain management . 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 We we will be sending her to work hardening physical therapy. Explained to her that they will be giving the final decision about her work status. If they think she is ready to go back with the patient still does not feel ready we would then get her set up for an CASI. She understand s this plan. We will release her as a pertains to this procedure. We do not see any reason from a neurosurgi cyndy standpoint she is still having the symptoms. She knows to call in the future with any other questions or complaints . Patient seen by myself and Dr. Delgado today Patient does not have any new imaging today Pain of ri t hip joint [id number] M25.551 Patient is set to see orthopedic s today. 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 We do think this could be the cause of a lot of her symptoms at this time. We are getting her set up for [facility] physical therapy but if they are discussing surgery or any sort of interventi on with the hip she knows she can cancel the work hardening PT at that time. Regardless we will not be able to keep her off work anymore at this time. The work hardening physical therapy would be giving her the documented updated letters. She understand s this. [id number] BALJIT DOUGLAS MD [facility] [address] [place] [address] 08/27/2022 14:32:52 08/27/2022 15:15:01 Urge incontinence of urine [id number] N39.41 She was given 4-week samples of Gemtesa. She will follow-up at that time [id number] ROBINSON BERNARD PA-C NEUROSURG [facility] [address] [place] [address] 09/24/2022 09:33:47 09/24/2022 12:09:26 Cervical radiculopathy [id number] M54.12 52-year-ol d female with history of an L3-S1 for lumbar fusion by Dr. Delgado with decade bilateral shoulder pain and bilateral hand numbness. The patient has failed conservati ve treatments . She is tried physical therapy for over 6 weeks and over-the-c ounter anti-infla mmatory medication s without significan t relief. Her symptoms are getting worse. I would like to order a cervical MRI without contrast to evaluate for neural compressio n. We will also try the patient on diclofenac 75 mg and cyclobenza amanda 5 mg as needed. We will have the patient back after cervical MRI is complete to discuss the results and our recommenda tions. Do also think putting the patient on light duty for the time being may also help her neck pain get better faster. [id number] BALJIT DOUGLAS MD [facility] [address] [place] [address] 09/24/2022 10:58:07 09/24/2022 12:10:00 Urge incontinence of urine [id number] N39.41 Follow-up 3 months [id number] DANYELLE ALVAREZ PA-C NEUROSURG [facility] [address] [place] [address] 11/22/2022 10:29:37 11/23/2022 04:51:58 Cervical radiculopathy [id number] M54.12 [id number] JERED MCKEE MD NEUROLOGY [address] [place] [address] 04/24/2023 08:05:51 04/24/2023 08:49:11 Essential tremor 750271206 G25.0 [id number] WINSTON SHEA MD [place] [facility] [address] [place] [address] 05/27/2023 10:50:53 05/27/2023 12:22:22 Obstructive sleep apnea syndrome [id number] G47.33 Insurance: [facility] Medicine Physician: Sara (ordered by PCP Dr. Rodriguez)PSG Date: 12/06/2020 HI Using 4% Rule: 11Central/ Mixed Percentage : 0%BMI: 38.5DISE: {{pending* good candidate with no concentric palatal collapse < 50% circumfren tial palatal collapse < 75% circumfren tial palatal collapse}} Has tried and failed/ret urned/does not wear anymore CPAP due to {{claustro phobia fidencio ps awake at night won' t stay on* skin irritation infective anxiety}} {{claustro phobia fidencio ps awake at night won' t stay on skin irritation infective anxiety}} Lesion of left ear [id number] H93.92 05/27/23- raised lesion of left shalonda bowl (Excision and biopsy performed In-Office) [id number] CARLOS DELGADO [facility] [address] [place] [address] 06/06/2023 10:07:09 06/07/2023 04:43:11 Cervical spondylosis 749337800 M47.812 [id number] JERED MCKEE MD NEUROLOGY [address] [place] [address] 08/12/2023 16:10:18 08/13/2023 04:29:41 Essential tremor 056118140 G25.0 Ischemic stroke 50793114 2 I63.9 Health Concerns Section Related Observation LastModified by Organization Detai ls LastModified Time None Recorded Concern Status LastModified by Organization Details LastModified Time None Recorded Advance Directives Directive None Recorded Payers Encounter Date Sequence Insurance Name Policy Number Policy Younger Covered Member ID Younger Member ID Guarantor Name 11/22/2022 1 [place] [id number] Sera D Cassie [id number] Sear D Cassie 04/24/2023 1 [place] [id number] Sera D Cassie [id number] Sera D Cassie 05/27/2023 1 [place] [id number] Sera D Cassie [id number] Sera D Cassie 06/06/2023 1 [place] [id number] Sera D Cassie [id number] Sera D Cassie 08/12/2023 1 [employer] Sera D Cassie [id number] Sera D Cassie Notes Date Note Type Note Provider Name and Address Organization Details Recorded Time 11/22/2022 text/html Patient is a 52-year-old female status post L3-S1 PLIF on 08/11/[address] Delgado presents for cervical follow-up with MRI. Pain is located to the posterior neck radiates into the bilateral shoulders she has periodic numbness and tingling throughout the lateral aspect of the right arm that radiates down into the thumb. She had a recent right hip arthroplasty last week. Patient is concerned she needs any cervical surgery. She notes issues with dropping things but denies change in gait. She is using a walker today to ambulate due to recent hip arthroplasty. She denies any pain, numbness or tingling of the left upper extremity. DANYELLE ALVAREZ PA-C [facility] [place], [address], [facility] 11/22/2022 17:11:56 04/24/2023 text/html This is a 52 year-old female seen at the request of Dr. Delgado for evaluation of tremor. To some extent she was a child, she has had tremor of the hands, mostly the right.Tremor is present with activity primarily.Holding a cup, her hand can shake.Symptoms have worsened with time, meme past year.Her grandmother had tremor, perhaps felt to be PD.Her brother has tremor, and her dad may have had one.She has been on venlafaxine for 2+ years and does not think this worsened tremor.No recent labs. JERED MCKEE MD [address] [place] [address], [address], [facility] 04/24/2023 08:45:42 05/27/2023 text/html Sera comes in to day for consultation at the request of Dr. Giovanny Rodriguez MD for an evaluation of obstructive sleep apnea.She has been diagnosed with moderate sleep apnea.She has used CPAP in the past but this was intolerable. WINSTON SHEA MD [facility] [place], [address], [facility] 05/27/2023 12:38:58 06/06/2023 text/html Ms. Matthews is s /p L3-S1 PLIF with Dr. Delgado on 08/11/21. She was last seen with cervical complaints. MRI of the cervical spine showed moderate bilateral foraminal stenosis at C5-6. She wished to treat this conservatively and was referred to pain management. Dr. Barragan performed a pain pump trial. One day after the trial she began having a severe headache. She went to her local ER and then was transferred to for possible mass on CT head. An MRI of the brain revealed a small acute infarct within the right parietal lobe as well as a small right frontal subarachnoid hemorrhage. She was diagnosed with a lacunar stroke and was seen by both neurology and neurosurgery. she has follow-up with the stroke clinic. Her visit to was on 06/02/23.Her biggest complaint currently is headaches that have improved since last weekend, but are gradually worsening. She describes pain in her forehead that radiates into the top of her head and down into her neck. The pain subsides some but does not resolve with lying down.She also continues to have pain in her posterior neck that radiates into the right shoulder. She has some numbness and tingling to a lesser degree diffusely in the right arm and hand. She especially notes that around the wrist into the fingers. She has an EMG scheduled in the next few weeks. Dr. Barragan has performed some cervical injections that gave her only a day or 2 of improvement. OLIVE HORNER PA-C [address] [place], [address], [facility] 06/06/2023 11:20:16 08/12/2023 text/html She was seen in April with essential tremor.Propranolol was started.She did not see benefit from this, so she stopped.I am not sure how long she took this.Remains with tremor, R>L hands. Hand have been going numb in recent weeks.She has numbness digits IV-V left hand, and she has tingling of the right forearm.She had NCS in [place] last week, and she was told this was normal.I do not have this report. Notably, she had stroke in May. HIstory per pt, and I reviewed records.On Saturday, she had intrathecal pain medicine as trial for possible pain pump. The next day, she woke up with bad headache - all over. Better when supine. Went to the ER in [facility]. Taken to the ER in [place]. Head CT showed a spot - ?mass - and she was sent to . No mass was seen. MRI there showed per report: 1. Mild bilateral frontal convexity subarachnoid hemorrhage, right greater than left.2. Punctate focus of restricted diffusion in the right parietal deep white matter consistent with acute infarct.She did not have any clear focal neurological symptoms, though note mentions visual field (VF) deficit and minor facial palsy Statin and aspirin started. She was seen in the stroke followup clinic by Dolores Diaz PA-C.Smoking cessation recommended. Sleep study ordered.Echo done and showed anteroseptal and inferoseptal chávez are hypokinetic with possible PFO. Looking at available hospital notes and the PA's note, I do not see any explanation for SAH. She has not had significant headache since then. There may have been some headache for a week or two before her ER visit, but it was distinct and bad then. Given IV meds at for headache and it improved there.She has a history of migraines but these have been not an issue since hysterectomy. BP has been OK - she does not think it was high when she had the headache/stroke. JERED MCKEE MD [facility] [place], [address], [facility] 08/12/2023 17:24:20 OBGyn Episode No OBEpisode recorded.
--- OUTSIDE RECORDS SUMMARY | 2025-01-05 20:14 | XMS_ITS | Data Portability ---
Author Organization [facility] ADMIN Address [address] [place] [address] Assessment No assessment recorded. Plan of Treatment Reminders Order Date Submit Date Provider Last Modified By Organization Details Last Modified Time Details Appointments None recorded. Lab None recorded. Referral None recorded. Procedures nerve conduction study/EMG, upper extremity (PROC) 2022 023 [email or web address] Not available 13:52:58 Surgeries None recorded. Imaging None recorded. Medication Orders None recorded. Patient TargetsNo targets recorded. Patient InstructionsNo instructions recorded. Reason for Referral None Reported. Problems Name Problem SNOMED Code Status Onset Date Resolution Date Notes Provider Name and Address Organization Details Recorded Time Paresthesia of upper limb 40557625 Active 2022 Avani Owusu DO [address] , [place], [address] , [facility] [place] 13:52:47 Problem Notes None recorded. Procedures Surgical History Date Name Laterality Status Provider Name and Address Organization Details Recorded Time EMG/ Nerve Conduction Study [place], [address], [facility] [place] 08/05/2023 13:52:43 Imaging Results None recorded. Procedure [...] Updated DateTime 3 170.18 cm 41.8 kg/m2 490862. 16 g 102 /min 114 mm[Hg] 73 mm[Hg] Sera DIETRICH [facility] & [place] 3 13:56:18 Social History None recorded. Functional Status None recorded. Mental Status None recorded. Family History Nothing Reported. Medical History No medical history recorded. Gynecological HistoryNo gynecological history recorded. Obstetrics History GPAL:G 0 P 0 0 0 0 Past Encounters Encounter ID Performer Location Encounter Start Date Encounter Closed Date Diagnosis/Indication Diagnosis SNOMED-CT Code Diagnosis ICD10 Code Diagnosis Note [id number] Avani Owusu, DO [facility] [address] [place] [address] 08/05/2023 13:47:57 08/05/2023 14:19:15 Paresthesia of upper limb 27964941 R20.2 Health Concerns Section Related Observation LastModified by Organization Detai ls LastModified Time None Recorded Concern Status LastModified by Organization Details LastModified Time None Recorded Advance Directives Directive None Recorded Payers Encounter Date Sequence Insurance Name Policy Number Policy Younger Covered Member ID Younger Member ID Guarantor Name 08/05/2023 1 [facility] Sera Matthews [id number] Sera aMtthews OBGyn Episode No OBEpisode recorded.
== END ==
LOC: SL 20:12
PROVIDERS: PCP Nurse Practitioner Family; Visit Provider Specialist
DX: G47.30 Sleep apnea, unspecified (principal); R63.4 Abnormal weight loss; Z86.73 Personal history of transient ischemic attack (TIA), and cerebral infarction without residual deficits
CPT/HCPCS: 95810

== ENCOUNTER 2025-01-20 11:37 | Outpatient (POV) | payer OTHER, SELFPAY ==
--- OUTSIDE RECORDS SUMMARY | 2025-01-20 11:39 | XMS_ITS | Data Portability ---
Author Organization [facility] ADMIN Address [address] [place] [address] Assessment No assessment recorded. Plan of Treatment Reminders Order Date Submit Date Provider Last Modified By Organization Details Last Modified Time Details Appointments None recorded. Lab None recorded. Referral None recorded. Procedures nerve conduction study/EMG, upper extremity (PROC) 2022 023 [email or web address] Not available 13:52:58 Surgeries None recorded. Imaging None recorded. Medication Orders None recorded. Patient TargetsNo targets recorded. Patient InstructionsNo instructions recorded. Reason for Referral None Reported. Problems Name Problem SNOMED Code Status Onset Date Resolution Date Notes Provider Name and Address Organization Details Recorded Time Paresthesia of upper limb 26203758 Active 2022 Avani Owusu DO [address] , [place], [address] , [facility] & [place] 13:52:47 Problem Notes None recorded. Procedures Surgical History Date Name Laterality Status Provider Name and Address Organization Details Recorded Time EMG/ Nerve Conduction Study [place], [address], [facility] & [place] 08/05/2023 13:52:43 Imaging Results None recorded. Procedure [...] Updated DateTime 3 170.18 cm 41.8 kg/m2 910402. 16 g 102 /min 114 mm[Hg] 73 mm[Hg] Sera DIETRICH [facility] & [place] 3 13:56:18 Social History None recorded. Functional Status None recorded. Mental Status None recorded. Family History Nothing Reported. Medical History No medical history recorded. Gynecological HistoryNo gynecological history recorded. Obstetrics History GPAL:G 0 P 0 0 0 0 Past Encounters Encounter ID Performer Location Encounter Start Date Encounter Closed Date Diagnosis/Indication Diagnosis SNOMED-CT Code Diagnosis ICD10 Code Diagnosis Note [id number] Avani Owusu, DO [facility] [address] [place] [address] 08/05/2023 13:47:57 08/05/2023 14:19:15 Paresthesia of upper limb 09102321 R20.2 Health Concerns Section Related Observation LastModified by Organization Detai ls LastModified Time None Recorded Concern Status LastModified by Organization Details LastModified Time None Recorded Advance Directives Directive None Recorded Payers Insurance Date Sequence Insurance Name Policy Number Policy Younger Covered Member ID Younger Member ID Guarantor Name 08/05/2023 1 [facility] Sera Matthews [id number] Sera Matthews OBGyn Episode No OBEpisode recorded.
[2025-01-20 11:47] VITALS: BP 130/87; PULSE 74; RESP 16; O2SAT 98; BMI 29.7
--- NOTE | 2025-01-20 12:25 | EXP.PAIN.SOA ---
[facility] Disclaimer: The information contained in this section may have been updated after the patient was seen, as this information can be updated by other users. Medical History REINA (obstructive sleep apnea) Cardiac device, implant, or graft infection or inflammation Encounter for loop recorder check Implantable loop recorder present Cryptogenic stroke HLD (hyperlipidemia) Back pain with history of spinal surgery Chest pain Elevated left ventricular end-diastolic pressure (LVEDP) SOB (shortness of breath) on exertion Family history of ischemic heart disease (IHD) Edema of both lower extremities Abnormal electrocardiogram [ECG] [EKG] Palpitations Typical angina Abnormal result of cardiovascular function study REINA (obstructive sleep apnea) Mild to moderate REINA diagnosed November 2020. Symptomatic improvement with CPAP, poor compliance Newly diagnosed diabetes Osteoarthritis of feet, bilateral Surgical History History of bilateral hip replacements History of back surgery Hx of foot surgery left screw Hx of total hip arthroplasty right History of partial hysterectomy has ovaries History of tonsillectomy Family History Other Cancer Coronary artery disease Diabetes Family history of diabetes mellitus type II Family history of hyperlipidemia Family history of hypothyroidism Family history of stroke Heart attack Social History Smoking Status: Never smoker smoking status start date: 05/01/23 alcohol intake: never substance use type: denies use current occupational status: other Travel in the last 8 weeks?: None household members: significant other housing: house lives independently: Yes marital status: single education level: high school service: No 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: No Do you have any weakness?: No Do you have any diarrhea?: No Are you experiencing any unusual bleeding?: No Do you have any muscle aches/pain?: No Do you have any abdominal pain?: No Are you experiencing loss of taste or smell?: No PM Subjective & Objective Subjective Subjective:: Patient is a pleasant 54-year-old female who presents today for follow-up of right intra-articular shoulder injection on 01/05/2025. Today she rates 75 improvement with that pain and rates her overall pain in her shoulder about a 4 out of 10 with certain movements. Patient does however state that she is rating 9 out of 10 pain along her bilateral hips and does state that the left side is worse than the right. Patient denies any new falls or injuries. Patient does state due to the worsening pain that she would like to see about additional injections for this pain as it is interfering with her ability perform activities of daily living such as cooking and cleaning. Patient has continued conservative treatment. Patient is currently managed with gabapentin 300 mg twice a day, [place] 5 mg twice a day and Flexeril 10 mg at bedtime from our office. She denies any side effects or changes to her pharmacy. Her Leno has been reviewed and is appropriate. Review of Systems: General: No recent weight changes, no fever, no sleep disturbances Respiratory: No cough, no shortness of air, no recurring pulmonary infections Cardiovascular/peripheral vascular: No chest pain, no palpitations, no edema, no shortness of breath Gastrointestinal: No new onset incontinence, normal bowel movements reported Genitourinary: No new onset incontinence Musculoskeletal: Bilateral hip pain Psychiatric: [Normal mood/affect] Neurological: [Denies weakness in extremities], [denies balance issues] Pain at rest (0-10 scale): 9 Objective Objective:: Physical Exam: General: Alert and oriented x3, no acute distress, pleasant and cooperative Lungs: Respirations even and unlabored, symmetrical chest expansion Eyes: PERRL Musculoskeletal: Flexion and extension of bilateral hips [spine] somewhat guarded secondary to pain, extreme point tenderness along her bilateral greater trochanteric bursa's Neurological: Speech clear, no gross sensory deficit Has patient had previous pain injection?: Yes Percent improvement in pain since last injection: 75% Conservative treatment options previously tried: Home exercise plan Length of treatment: Longer than 12 weeks Meds Home Medications and Allergies Home Medications ?Medication ?Instructions ?Recorded ?Confirmed ?Type losartan 100 mg tablet 100 mg PO DAILY 09/07/23 01/20/25 History varenicline tartrate 1 mg tablet 1 mg PO DAILY 09/07/23 01/20/25 History venlafaxine 150 mg 150 mg PO DAILY 09/07/23 01/20/25 History capsule,extended release 24 hr rosuvastatin 40 mg tablet See Rx Instructions .Route 09/30/23 01/20/25 Rx .COMPLEX #90 tabs cyanocobalamin (vitamin B-12) 1,000 mcg IM QMONTH 10/09/23 01/20/25 History 1,000 mcg/mL injection solution famotidine 40 mg tablet 40 mg PO DAILY 10/09/23 01/20/25 History montelukast 10 mg tablet 10 mg PO HS 10/09/23 01/20/25 History dapagliflozin propanediol 5 mg 5 mg PO DAILY 11/04/23 01/20/25 History tablet (Farxiga) albuterol sulfate 90 mcg/actuation 1 - 2 puff inhalation Q4-6H PRN 12/02/23 01/20/25 Rx aerosol inhaler (Proventil HFA) shortness of breath or wheezing #8.5 grams aspirin 81 mg tablet,delayed 81 mg PO DAILY 12/02/23 01/20/25 History release cholecalciferol (vitamin D3) 25 25 mcg PO DAILY 12/02/23 01/20/25 History mcg (1,000 unit) tablet furosemide 40 mg tablet 40 mg PO DAILY 12/23/23 01/20/25 History tirzepatide 5 mg/0.5 mL 5 mg SQ WEEKLY 03/02/24 01/20/25 History subcutaneous pen injector (Mounjaro) syringe with needle 3 mL 25 gauge #1 ea 07/09/24 01/20/25 History x 1 (BD Luer-Chantelle Syringe) tirzepatide 10 mg/0.5 mL 10 mg SQ QWEEK 07/09/24 01/20/25 History subcutaneous pen injector (Mounjaro) pantoprazole 40 mg tablet,delayed 40 mg PO DAILY #30 tabs 08/18/24 01/20/25 Rx release (Protonix) nystatin 100,000 unit/gram topical 1 applic topical DIRECTED 11/17/24 01/20/25 History cream cyclobenzaprine 10 mg tablet 10 mg PO BID PRN muscle spasms 01/11/25 01/20/25 History primidone 50 mg tablet 50 mg PO AM 01/11/25 01/20/25 History primidone 50 mg tablet 100 mg PO HS Tremor 01/11/25 01/20/25 History gabapentin 300 mg capsule 300 mg PO BID #60 caps 01/18/25 01/20/25 Rx hydrocodone 5 mg-acetaminophen 325 1 tab PO BID #60 tabs 01/20/25 Rx mg tablet New Prescriptions to Start Prescriptions: hydrocodone-acetaminophen Natalya Wilson Allergies Allergy/AdvReac Type Severity Reaction Status Date / Time No Known Allergies Allergy Verified 01/11/25 09:05 Assessment and Plan *Assessment and plan (1) Trochanteric bursitis of both hips: Status: Acute Category: Medical Code(s): M70.61 - Trochanteric bursitis, right hip; M70.62 - Trochanteric bursitis, left hip Plan Patient is experiencing worsening pain in her bilateral hips with extreme point tenderness on her greater trochanteric bursa's. I did discuss with the patient that she may benefit from greater trochanteric bursa injections. Risk and benefits were discussed with patient and she would like to proceed forward with this plan of care. Patient has had chronic hip pain for longer than 6 months.Patient has had bilateral bursa injections in the past with her last ones being in September and did provide more than 50% relief lasting up until the last couple of weeks. I will make sure that she does have refills on her medication and schedule her for bilateral trochanteric bursa injections under fluoroscopy. Patient has been instructed to contact the clinic with any concerns before the next appointment. Dr. Barragan has reviewed this note and agrees with this plan of care. This note was dictated using voice recognition software and make contain errors or omissions. All injections are used with Lidocaine, Bupivacaine and dexamethasone. Occasionally urine drug screen is needed to verify patient's compliance with our office pain contract. This is ordered based off specific treatments related to chronic pain with the potential to abuse certain medications.
== END 2025-01-20 23:59 | disposition home or self-care (01) ==
PROVIDERS: PCP Nurse Practitioner Family; Visit Provider Nurse Practitioner Family
DX: M70.61 Trochanteric bursitis, right hip (principal); M70.62 Trochanteric bursitis, left hip; Z96.643 Presence of artificial hip joint, bilateral; Z73.89 Other problems related to life management difficulty; Z79.899 Other long term (current) drug therapy
CPT/HCPCS: 99212; G0463

== ENCOUNTER 2025-02-08 10:20 | Outpatient (CLI) | payer OTHER, SELFPAY ==
--- NOTE | 2025-02-08 10:30 | US_ITS ---
Ultrasound Sonograher: PROCEDURE: US TRANSVAGINAL CLINICAL INDICATION: Pelvic Pain COMPARISON: No exams were available for comparison FINDINGS: Transvaginal and transabdominal sonographic images of the pelvis were obtained. UTERUS: The uterus is surgically absent The vaginal vault is intact. LEFT OVARY: Not visualized RIGHT OVARY: Not visualized Both ovaries are not seen. There is no fluid in the cul-de-sac. IMPRESSION: 1. The uterus is surgically absent. The vaginal vault is intact. 2. The ovaries were not visualized today and we attempted both transvaginally and transabdominally. 3. No fluid in the cul-de-sac. Dictated by: Robert Garcia MD 02/08/2025 12:03 Robert Garcia MD in [place] 02/08/2025 12:03
[2025-02-08 14:40] LABS: Thyroid Stimulating Hormone 1.41 uIU/mL (0.465-4.68)
[2025-02-08 14:59] LABS: Vitamin B12 925 pg/mL (239-931)
== END 2025-02-08 23:59 | disposition home or self-care (01) ==
LOC: RAD 10:21
PROVIDERS: Specialist; PCP Nurse Practitioner Family; Visit Provider Obstetrics & Gynecology
DX: G47.10 Hypersomnia, unspecified (principal); G47.33 Obstructive sleep apnea (adult) (pediatric); I10 Essential (primary) hypertension; I63.9 Cerebral infarction, unspecified; R10.2 Pelvic and perineal pain; Z90.710 Acquired absence of both cervix and uterus
CPT/HCPCS: 36415; 76830; 82607; 84443

== ENCOUNTER 2025-03-16 13:05 | Day surgery (SDC) | payer OTHER, SELFPAY ==
[2025-03-16 13:05] VITALS: BP 126/80; PULSE 68; RESP 18; O2SAT 96; BMI 29.1
[2025-03-16 13:10] VITALS: BP 129/75; PULSE 89; RESP 18; O2SAT 98
[2025-03-16] MEDS: BUPIVACAINE 0.25% 10ML INJ 25 MG IJ (13:21)
[2025-03-16] MEDS: DEXAMETHASONE 10MG/ML 1ML VIAL 10 MG (13:21)
[2025-03-16] MEDS: LIDOCAINE 1% 5ML PF VIAL 5 ML (13:21)
--- NOTE | 2025-03-16 13:23 | EXP.PAIN.PRO ---
Procedure Date: 03/16/25 Time: 13:00 Anesthesiologist:: Mello Manzo CRNA Complications:: None Pre-procedure Diagnosis:: Bilateral trochanteric bursitis Post-procedure Diagnosis:: Same Indications for Procedure:: Patient is a very pleasant 54-year-old female who comes our clinic today for bilateral trochanteric bursa injections of cortisone local anesthetic. Patient describes bilateral lateral hip pain as constant, sharp, stabbing. She reports difficulty with ambulation due to the lateral hip pain bilaterally. She rates her pain 7/10. Procedure Details:: Procedure: Bilateral trochanteric bursa joint injections under fluoroscopy Informed consent was obtained and the risks and benefits of the procedure were explained to the patient.~ The patient was taken to the procedure room and noninvasive monitors were placed including a noninvasive blood pressure cuff and pulse oximeter.~ The patient was placed prone on the procedure table. The area over the posterior hips was cleansed using chlorhexidine as a cleansing solution. Using fluoroscopy guidance the left trochanteric bursa was accessed with ease using a 22-gauge 3 and half inch spinal needle. 0.5 mL of contrast dye was injected to confirm the needle placement. At this time 3 cc of 1% lidocaine +3 cc of 0.25% Marcaine and 5 mg of dexamethasone was injected. The same procedure was carried out over the right trochanteric bursa. The patient tolerated the procedure without difficulty. There were no complications. Plan and Disposition:: Patient was discharged without incident.
[2025-03-16 13:47] VITALS: BP 111/73; PULSE 66; RESP 16; O2SAT 99
== END 2025-03-16 13:48 | disposition home or self-care (01) ==
PROVIDERS: PCP Nurse Practitioner Family; Visit Provider Nurse Anesthetist, Certified Registered
DX: M70.62 Trochanteric bursitis, left hip (principal); E78.5 Hyperlipidemia, unspecified; G47.33 Obstructive sleep apnea (adult) (pediatric); M19.072 Primary osteoarthritis, left ankle and foot; M19.071 Primary osteoarthritis, right ankle and foot; E11.9 Type 2 diabetes mellitus without complications; Z79.85 Long-term (current) use of injectable non-insulin antidiabetic drugs; Z79.82 Long term (current) use of aspirin; Z79.899 Other long term (current) drug therapy
CPT/HCPCS: 20610; 77002; J0665; J1100; J2003

== ENCOUNTER 2025-04-08 13:53 | Outpatient (POV) | payer OTHER, SELFPAY ==
--- OUTSIDE RECORDS SUMMARY | 2025-04-08 13:58 | XMS_ITS | Clinical Summary ---
[facility] Address [address] [place] [address] Care Team Providers Care Automobile Designer Name Role Phone Giulia Dunlap APRN Primary Care Provid er Allergies No known active allergies Medications cetirizine (zyrTEC) 10 MG tablet Take 1 tablet by mouth Daily. 2 Active cyanocobalamin 1000 MCG/ML injection Inject 1 mL into the appropriate muscle as directed by prescriber Every 28 (Twenty-Eight) Days. 2 Active venlafaxine XR (EFFEXOR-XR) 150 MG 24 hr capsule Take 1 capsule by mouth Daily. 2 Active fluticasone (FLONASE) 50 MCG/ACT nasal spray 2 sprays into the nostril(s) as directed by provider Daily As Needed for Rhinitis or Allergies. 2 Active losartan (COZAAR) 100 MG tablet Take 1 tablet by mouth Daily. Active famotidine (PEPCID) 40 MG tablet Take 1 tablet by mouth 2 (Two) Times a Day. Active albuterol sulfate HFA 108 (90 Base) MCG/ACT inhaler Inhale 2 puffs Every 6 (Six) Hours As Needed for Wheezing. 3 Active meloxicam (MOBIC) 7.5 MG tablet Take 1 tablet by mouth Daily. 3 Active Myrbetriq 50 MG tablet sustained-relea se 24 hour 24 hr tablet Take 50 mg by mouth Daily. 3 Active montelukast (SINGULAIR) 10 MG tablet Take 1 tablet by mouth Every Night. 3 Active spironolactone (ALDACTONE) 25 MG tablet Take 1 tablet by mouth Daily. 3 Active Active Problems Problem Noted Date Diagnosed Date Obesity (BMI 30-39.9) 02/07/2023 Acute postoperative pain 02/06/2023 Rectal prolapse 02/05/2023 HTN (hypertension) 02/05/2023 GERD (gastroesophageal reflux disease) Sleep apnea 02/05/2023 Prediabetes 02/05/2023 s/p rectopexy 02/05/2023 Family History Medical History Relation Name Comments Cancer Father Diabetes Father Gout Father Heart disease Father Hypertension Father Gout Mother Heart disease Mother Relation Name Status Comments Father Mother Social History Tobacco Use Types Packs/Day Years Used Date Smoking Tobacco: Former Cigarettes 1.5 1 2017 Smokeless Tobacco: Never Tobacco Cessation:Counseling Given: Not Answered Alcohol Use Standard Drinks/Week Comments Never 0 (1 standard drink = 0.6 oz pur e alcohol) AUDIT-C Answer Date Recorded Q1: How often do you have a drink containing alcohol? Never 02/05/2023 Q2: How many drinks containi ng alcohol do you have on a typical day when you are drinking? Patient does not drink Q3: How often do you have si x or more drinks on one occasion? Never 02/05/2023 Exercise Vital Sign Answer Date Recorde d On average, how many days pe r week do you engage in moderate to strenuous exercise (like a brisk walk)? 0 days 02/06/2023 On average, how many minutes do you engage in exercise at this level? 0 min 02/06/2023 Hunger Vital Sign Answer Date Recorded Within the past 12 months, y ou worried that your food would run out before you got the money to buy more. Never true 02/07/20 23 Within the past 12 months, t he food you bought just didn't last and you didn't have money to get more. Never true 02/06/2023 Abuse Screen Answer Date Recorded Unsafe at Home or Work/School Not on file Feels Threatened by Someone? Not on file Does Anyone Keep You from Co ntacting Others or Doint Things Outside the Home? Not on file 02/06/2024 Physical Sign of Abuse Present Not on file 0 02/06/2024 Housing Stability Answer Date Recorded Current Living Arrangements Not on file 02/07 Potentially Unsafe Housing Conditions Not on concepcion e 02/21/2024 Family and Community Support Answer Milo e Recorded Help with Day-to-Day Activities Not on file 06/17/2023 Lonely or Isolated Not on file 06/17/2023 Employment Answer Date Recorded Do you want help finding or keeping work or a leila b? Not on file 06/17/2023 Disabilities Answer Date Recorded Concentrating, Remembering, or Making Decisions Difficulty Not on file 02/06/2024 Doing Errands Independently Difficulty Not on fi le 02/06/2024 Education Answer Date Recorded Help with school or training? Not on file Preferred Language Not on file 02/06/2024 Comments No Sex and Gender Information Value Date Recorded Sex Assigned at Not on file Legal Sex Female 10:49 AM EDT Gender Identity Not on file Sexual Orientation Not on file Last Filed Vital Signs Vital Sign Reading Time Taken Comments Blood Pressure 127/77 02/07/2023 11:12 AM EDT Pulse 87 02/07/2023 11:12 AM EDT Temperature 36.7 C (98 F) 02/07/2023 11:12 AM EDT Respiratory Rate 18 02/07/2023 11:12 AM EDT Oxygen Saturation 95% 02/07/2023 9:22 AM EDT Inhaled Oxygen Concentration - - Weight 105 kg (232 lb 9.4 oz) 02/05/2023 10:49 A M EDT Height 168.9 cm (5' 6.5 ) 02/05/2023 10:49 AM ED T Body Mass Index 36.98 02/05/2023 10:49 AM EDT Plan of Treatment Health Maintenance Due Date Last Done Comments Annual Gynecologic Pelvic an d Breast Exam 1971 TDAP/TD VACCINES (1 - Tdap) 1990 MAMMOGRAM 2011 COLOGUARD 2016 COLON CANCER SCREENING 5 YEA R SIGMOIDOSCOPY 2016 COLONOSCOPY [address] CANCER SCREENING 2016 CT COLONOGRAPHY 2016 FECAL OCCULT BLOOD TEST 2016 FIT Testing (1 year) 2016 Pneumococcal Vaccine 50+ (1 of 1 - PCV) 2021 ZOSTER VACCINE (1 of 2) 2021 ANNUAL PHYSICAL 01/03/2022 HEPATITIS C SCREENING 01/03/2022 COVID-19 Vaccine (4 - 2023-2 5 season) 2024 06/29/2022, 12/16/2020, 11/18/2020 INFLUENZA VACCINE 06/09/2025 06/11/2022, , 06/09/2018, Additional history exists LUNG CANCER SCREENING Discontinued 06/02/2023 Insurance [facility] PPO Advance Directives * CPR (Attempt to Resuscitate) (Latest Code Status on File) Date Activated Date Inactivated Comments 02/05/2023 3:29 PM 02/07/2023 4:43 PM Question Answer Comments Code Status (Patient has no pulse and is not breathing): CPR (Attempt to Resuscitate) Medical Interventions (Patie nt has pulse or is breathing): Full Care Teams Automobile Designer Relationship Specialty Start Date End Date Giulia Dunlap APRN [address] [facility] [address] [place] [id number] PCP - General Family Medicine 01/29/23
--- OUTSIDE RECORDS SUMMARY | 2025-04-08 13:58 | XMS_ITS | Encounter Summary ---
Author Organization [employer] ([place], [place], [place], [place]) Address [address] [place] [address] Care Team Providers Care Rate Clerk Name Role Phone Unavailable Primary Care Provider Unavailabl e Encounter Details Date Type Department Care Team (Late st Contact Info) Description 08/11/2021 Transcribed Document [facility] [place] [address] ProviderMaxine MD [address] [place] [address] Social History Tobacco Use Types Packs/Day Years Used Date Smoking Tobacco: Never Assessed Comments Unknown Sex and Gender Information Value Date Recorded Sex Assigned at Unknown 03/06/2022 8:57 PM CDT Legal Sex Female 8:57 PM CDT Gender Identity Not on file Sexual Orientation Not on file documented as of this encounter Miscellaneous Notes * Cerner Conversion Note - Historical ProviderMD - 08/11/2021 12:43 PM FERRYBOAT OPERATOR Pain Assessment Entered On: 08/13/2021 16:58 EST Performed On: 08/13/2021 9:30 EST by ELPIDIO GARCIA RN Intervention Information: oxyCODONE Performed by ELPIDIO GARCIA RN on 08/13/2021 08:30:00 EST oxyCODONE,10mg Oral,Pain (Moderate 4-6) Pain Assessment Pain Assessment : Follow-up assessment Pain Scale Goal : 5 Pain Scale Used : 0-10 Scale Location : Back Pain Improved by Intervention : Yes ELPIDIO GARCIA RN - 08/13/2021 16:57 EST Pain Scale Intensity : 4 ELPIDIO GARCIA RN - 08/13/2021 16:57 EST Image 4 - Images currently included in the form version of this document have not been included in the text rendition version of the form. documented in this encounter Plan of Treatment Not on file documented as of this encounter Visit Diagnoses Not on filedocumented in this encounter
--- OUTSIDE RECORDS SUMMARY | 2025-04-08 13:58 | XMS_ITS | Encounter Summary ---
Author Organization [employer] ([place], [place], [place], [place]) Address [address] [place] [address] Care Team Providers Care Ladle Builder Name Role Phone Unavailable Primary Care Provider Unavailabl e Encounter Details Date Type Department Care Team (Late st Contact Info) Description 08/14/2021 Transcribed Document [facility] Radiology [address] [place] [address] Darron Merlos MD [facility] [address] [address] Social History Tobacco Use Types Packs/Day Years Used Date Smoking Tobacco: Never Assessed Comments Unknown Sex and Gender Information Value Date Recorded Sex Assigned at Unknown 03/06/2022 8:57 PM CDT Legal Sex Female 8:57 PM CDT Gender Identity Not on file Sexual Orientation Not on file documented as of this encounter Miscellaneous Notes * Cerner Conversion Note - Darron Merols MD - 08/14/2021 9:40 AM EST Patient: SERA CALI Age: 50 years Sex: Female : 1970 Associated Diagnoses: None Author: JERRY LEBLANC PA cc: medical management s/p L3-S1 PLIF with possible iliac bolts S: Pt is doing ok. No f'/c/s. No n/v/d. + gas, - BM. No CP, SOA, palpitations. No cough or sputum. Urinating well. +post op pain. Has not been frequently using incentive spirometer. No acute complaints today. Insertion of suppository before she is dyspneic dominant. HPI: Patient is a 50 yo female admitted to [facility] per Dr. Delgado for an L3-S1 PLIF with possible iliac bolts. Preoperatively patient was found to have advanced spondylolisthesis of the lumbar spine and elected surgical intervention after failing conservative treatment. Patient is followed perioperatively while hospitalized for medical management. Initial visit in PACU -- Denies prior stroke or seizure. Denies ND, CHF or cardiac arrhythmia. Denies DM. Denies COPD, asthma. +REINA has cpap at home. Was dx with Narcolepsy, then she had sleep study and provider thought it was due to REINA over narcolepsy. . Denies DVT or PE. Denies h/o cancer. Denies any bladder issues. Denies any recent illnesses that required abx. hx of constipation/. No tob. rare etoh. _GERD. Right arm and harini LE paresthesia. Past Med Hx: Active Problems (4) Constipation GERD (gastroesophageal reflux disease) History of obstructive sleep apnea lower back pain to both hips and BLE to feet, right hand numbness Active Procedures (4) hemorrhoidectomy 06/2021 left foot surgery w/ screw placement partial hysterectomy tonsillectomy Family Hx: father - HLD, DM , HTN mother - irregular heart beat sibs - Dm Social & Psychosocial Habits Alcohol 08/08/2021 Alcohol Use History, Social Habits No Substance Abuse 08/08/2021 Recreational Drug Use History No Recreational Drug Use Last 12 Months No Tobacco 08/08/2021 Smoking Status Former smoker, quit more Smokeless Tobacco Status Never Years of Tobacco Use 10 Packs/Tins Daily 1.5 Month Tobacco Last Used Quit 2018 Allergies (1) Active Reaction No Known Medication Allergies None Documented Home Medications (5) Active buPROPion 300 mg, Oral, Daily pantoprazole 40 mg, Oral, BID Tylenol 1,500 mg, PRN, Oral, BID venlafaxine 150 mg, Oral, Daily Vitamin B12 , IntraMuscular, Z2Bagiy ROS: ROS as above, all other systems reviewed negative Exam: Vitals Signs (last 24 hrs) Last Charted Minimum Maximum Temp H 100.1 (AUG 14 06:00) 99.1 (AUG 14 02:51) H 100.2 (AUG 13 23:03) Mon HR 82 (AUG 14 06:00) 82 (AUG 14 06:00) 87 (AUG 14 02:51) Resp Rate 15 (AUG 14 06:00) 15 (AUG 14 06:00) 16 (AUG 13 18:00) SBP 119 (AUG 14 06:00) 112 (AUG 13 23:03) 122 (AUG 14 02:51) DBP L 58 (AUG 14 06:00) L 54 (AUG 13:03) 88 (AUG 13 18:39) MAP 72 (AUG 14:00) 67 (AUG 13 23:03) 94 (AUG 13 18:39) SpO2 97 (AUG 14 05:36) L 92 (AUG 13 18:39) 97 (AUG 14 05:36) GEN: Obese white female sitting up in chair no acute distress Neck: supple, no thyromegaly HEENT: NCAT, no icterus, no thrush. Nares patent. CV: S1S2, no murmur. No LE edema RESP: CTAB, NL. No wheezes or rhonchi ABD: soft, NTND, +BS SKIN: no rashes on inspection and palpation to visible skin NEURO: A&O x 3, CN grossly intact. No focal deficits. MSK: Generalized weakness. No calf tenderness. No joint edema, erythema. Data: Labs (Last four charted values) WBC H 11.1 (AUG 14) H 13.3 (AUG 13) H 16.0 (AUG 12) H 10.6 (AUG 09) HB L 10.1 (AUG 14) L 9.9 (AUG 13) L 10.1 (AUG 12) 13.1 (AUG 09) HCT L 31.7 (AUG 14) L 31.4 (AUG 13) L 32.0 (AUG 12) 40.3 (AUG 09) Plt 267 (AUG 14) 270 (AUG 13) 290 (AUG 12) 350 (AUG 09) Na L 135 (AUG 14) L 135 (AUG 13) 138 (AUG 12) 139 (AUG 09) K 4.3 (AUG 14) 4.1 (AUG 13) 4.5 (AUG 12) 4.1 (AUG 09) Cl 102 (AUG 14) 104 (AUG 13) 109 (AUG 12) 106 (AUG 09) CO2 27 (AUG 14) 30 (AUG 13) 25 (AUG 12) 26 (AUG 09) BUN 13 (AUG 14) 18 (AUG 13) 13 (AUG 12) 16 (AUG 09) Cr 0.60 (AUG 14) 0.70 (AUG 13) 0.70 (AUG 12) 0.70 (AUG 09) Glu R H 120 (AUG 14) H 123 (AUG 13) H 122 (AUG 12) 96 (AUG 09) Ca 8.6 (AUG 14) 8.5 (AUG 13) 8.5 (AUG 12) 9.3 (AUG 09) Impression: advanced spondylolisthesis Lspine -s/p L3-S1 PLIF with possible iliac bolts per Dr. Delgado GERD chronic constipation REINA Low-grade fever???100.1 -likely due to atelectasis. No symptoms of fever. Plan: Bisacodyl 10 mg suppository rectally to stimulate bowel movement for discharge OK to discharge from IM standpoint pain meds per surgery DVT prophylaxis per surgery bowel regimen at home IS at home and to improve atelectasis. Assessment and treatment plan made in conjunction with Debi Merlos MD Scribed by Winnie Silverman documented in this encounter Plan of Treatment Not on file documented as of this encounter Visit Diagnoses Not on filedocumented in this encounter
--- OUTSIDE RECORDS SUMMARY | 2025-04-08 13:58 | XMS_ITS | Encounter Summary ---
Author Organization [employer] ([place], [place], [place], [place]) Address [address] [place] [address] Care Team Providers Care Harvester Operator Name Role Phone Unavailable Primary Care Provider Unavailabl e Encounter Details Date Type Department Care Team (Late st Contact Info) Description 08/12/2021 Transcribed Document [facility] [address] [place] [address] ProviderMaxine MD [address] [place] [address] Social History Tobacco Use Types Packs/Day Years Used Date Smoking Tobacco: Never Assessed Comments Unknown Sex and Gender Information Value Date Recorded Sex Assigned at Unknown 03/06/2022 8:57 PM CDT Legal Sex Female 8:57 PM CDT Gender Identity Not on file Sexual Orientation Not on file documented as of this encounter Miscellaneous Notes * Cerner Conversion Note - Historical ProviderMD - 08/12/2021 1:05 PM MANAGER BUDGET Treatment Intervention, OT Entered On: 08/14/2021 15:16 EST Performed On: 08/14/2021 9:53 EST by BRUCE TAMEZ, OTR/L General Information, OT Visit Type, OT : Treatment Note Patient Orders : Order Date Order Ordering 08/11/2021 12:13 Occupational Therapy Evaluation and Treatme Ordered By: CARLOS DAMON MD-SNU 08/12/2021 13:05 Occupational Therapy Additional Tx Ordered By: Active Diagnoses : 08/14/2021 12:00 Other spondylosis with myelopathy, lumbar region 08/11/2021 12:00 Other spondylosis with myelopathy, lumbar region Therapy Diagnosis, OT : decreased fxl status due to pain, decreased activity tolerance Admission Date : 08/11/2021 06:40 Co-treated by, OT : legislative assistant (INSPECTOR SHEET METAL PARTS) Personal Devices : Personal Devices No Devices Recorded Assistive Devices : Assistive Devices No Devices Recorded Precautions in Place : Fall prevention measures, Log roll precautions, Spinal Precautions BRUCE TAMEZ OTR/Mar - 08/14/2021 15:12 EST General Status Patient Received Status : Up in chair Treatment Start Time : 08/14/2021 9:38 EST Patient Left Status : Up in chair, RN/PCT informed, All needs met and within reach RN/PCT Informed Comment : KIMBERLY Ibarra Treatment End Time : 08/14/2021 9:53 EST Treatment Time : 15 Minute(s) BRUCE TAMEZ OTR/Mar - 08/14/2021 15:12 EST Functional Mobility Mobility Grid Sit to Stand : Rehab Minimal assistance (Comment: x2 [BRUCE TAMEZ OTR/Mar - 08/14/2021 15:12 EST] ) Stand to Sit : Rehab Minimal assistance BRUCE TAMEZ OTR/Mar - 08/14/2021 15:12 EST Cognitive Treatment, OT Orientation : Oriented x 4 BRUCE TAMEZ OTR/Mar - 08/14/2021 15:12 EST Plan of Care, OT OT Tx Plan/Goals Established w Patient : Yes BRUCE TAMEZ OTR/Mar - 08/14/2021 15:12 EST Barber Stylist Goals, OT Dressing, Lower Body LTG Grid Goal #1 Activity : Dressing, Lower Body Assist : Supervision or set up Equipment : Long Handled Locomotive Engineer Electric, Sock aid, Long handled shoehorn Date to Meet : 08/26/2021 EST Goal Status : Initial goal BRUCE TAMEZ OTR/Mar - 08/14/2021 15:12 EST Toilet Transfer LTG Grid Goal #1 Activity : Toilet Transfer, Ambulatory Assist : Independent, modified Date to Meet : 08/26/2021 EST Goal Status : Initial goal Comment : bathroom toilet, demo good safety BRUCE TAMEZ OTR/Mar - 08/14/2021 15:12 EST Bed Mobility/ Bed Transfer LTG Grid Goal #1 Goal #2 Activity : Bed Mobility, Supine to Sit Bed Mobility, Sit to Supine Assist : Supervision or set up Supervision or set up Date to Meet : 08/26/2021 EST 08/26/2021 EST Goal Status : Initial goal Initial goal Comment : log roll technique log roll technique BRUCE TAMEZ OTR/Mar - 08/14/2021 15:12 EST BRUCE TAMEZ OTR/L - 08/14/2021 15:12 EST Treatment Note Subjective Comment : pt agreeable to tx. Declined ADLs. Patient's Response to Treatment : pt tolerated session well. Additional Objective Information : pt upright in chair upon arrival. Pt mod a for donning brace. Pt min a x2 for sit to stand. Pt min a for household distance functional mobility with RW. Returned to sitting with min A. Left upright in chair with call light in reach and all other needs met. Assessment : pt progressing. will continue to benefit from skilled OT. Plan for Treatment : cont per poc. BRUCE TAMEZ OTR/L - 08/14/2021 15:12 EST Anticipated Discharge Needs, OT/PT Anticipated Discharge to : Home, with home health BRUCE TAMEZ OTR/L - 08/14/2021 15:[address] [facility] OT Charges OT Ther Activities Ea 15 Min : 1 BRUCE TAMEZ OTR/L - 08/14/2021 15:12 EST documented in this encounter Plan of Treatment Not on file documented as of this encounter Visit Diagnoses Not on filedocumented in this encounter
--- OUTSIDE RECORDS SUMMARY | 2025-04-08 13:58 | XMS_ITS | Encounter Summary ---
Author Organization [id number] ([place], [place], [place], [place]) Address [address] [place] [address] Care Team Providers Care Bread Slicer Machine Name Role Phone Unavailable Primary Care Provider Unavailabl e Encounter Details Date Type Department Care Team (Late st Contact Info) Description 08/13/2021 Transcribed Document [facility] Neurology - [address] [facility] [address] [place] [address] Rhiannon Biggs Jr., MD [facility] [place] [address] Social History Tobacco Use Types Packs/Day Years Used Date Smoking Tobacco: Never Assessed Comments Unknown Sex and Gender Information Value Date Recorded Sex Assigned at Unknown 03/06/2022 8:57 PM CDT Legal Sex Female 8:57 PM CDT Gender Identity Not on file Sexual Orientation Not on file documented as of this encounter Miscellaneous Notes * Cerner Conversion Note - Rhiannon Biggs Jr., MD - 08/13/2021 1:28 PM EST Patient: SERA MATTHEWS Age: 50 years Sex: Female : 1970 Associated Diagnoses: None Author: RHIANNON BIGGS MD-SNU af vss ajay serous>bloody, 40 over night 01/11 was up w/ p.t. feels better today dc drain p.t. pain control goal is dc home tomorrow afternoon. daughter can pick her up around 5pm. pt happy w/ plan. documented in this encounter Plan of Treatment Not on file documented as of this encounter Visit Diagnoses Not on filedocumented in this encounter
--- OUTSIDE RECORDS SUMMARY | 2025-04-08 13:58 | XMS_ITS | Encounter Summary ---
Author Organization [employer] ([place], [place], [place], [place]) Address [address] [place] [address] Care Team Providers Care Marine Engine Machinist Apprentice Name Role Phone Unavailable Primary Care Provider Unavailabl e Encounter Details Date Type Department Care Team (Late st Contact Info) Description 08/12/2021 Transcribed Document [facility] [place] [address] [place] [address] ProviderMaxine MD [address] [place] [address] Social History Tobacco Use Types [...] Conversion Note - Historical ProviderMD - 08/12/2021 5:00 PM DIRECTOR RELIGIOUS EDUCATION Chart Check - Review Order Profile Entered On: 08/12/2021 15:51 EST Performed On: 08/12/2021 17:00 EST by ELPIDIO GARCIA RN Chart Check Powerplans Initiated/Discontinued as Appropriate : Yes All Active Orders Reviewed : Yes ELPIDIO GARCIA RN - 08/12/2021 15:51 EST Electronically signed by Yolanda [facility] Conversion Inhalation Therapist Cerner at 12/28/2022 8:02 PM CDT documented in this encounter Plan of Treatment Not on file documented as of this encounter Visit Diagnoses Not on filedocumented in this encounter
--- OUTSIDE RECORDS SUMMARY | 2025-04-08 13:58 | XMS_ITS | Encounter Summary ---
Author Organization [employer] ([place], [place], [place], [place]) Address [address] [place] [address] Care Team Providers Care Urban Renewal Manager Name Role Phone Unavailable Primary Care Provider Unavailabl e Encounter Details Date Type Department Care Team (Late st Contact Info) Description 08/12/2021 Transcribed Document [facility] [place] [facility] [place] [address] ProviderMaxine MD [facility] [place] [address] Social History Tobacco Use Types [...] Conversion Note - Historical ProviderMD - 08/12/2021 6:00 PM CRISIS NURSE Pain Assessment Entered On: 08/12/2021 17:55 EST Performed On: 08/12/2021 18:48 EST by ELPIDIO GARCIA RN Intervention Information: acetaminophen Performed by ELPIDIO GARCIA RN on 08/12/2021 17:48:00 EST acetaminophen,650mg Oral Pain Assessment Pain Assessment : Follow-up assessment Pain Scale Goal : 5 Pain Scale Used : 0-10 Scale Location : Back Pain Improved by Intervention : Yes ELPIDIO GARCIA RN - 08/12/2021 17:55 EST Pain Scale Intensity : 3 ELPIDIO GARCIA RN - 08/12/2021 17:55 EST Image 4 - Images currently included in the form version of this document have not been included in the text rendition version of the form. documented in this encounter Plan of Treatment Not on file documented as of this encounter Visit Diagnoses Not on filedocumented in this encounter
--- OUTSIDE RECORDS SUMMARY | 2025-04-08 13:58 | XMS_ITS | Clinical Summary ---
Author Organization [employer] ([place], [place], [place], [place]) Address [address] [place] [address] Care Team Providers Care Application Support Manager Name Role Phone Unavailable Primary Care Provider Unavailabl e Social History Tobacco Use Types Packs/Day Years Used Date Smoking Tobacco: Never Assessed Comments Unknown Sex and Gender Information Value Date Recorded Sex Assigned at Unknown 03/06/2022 8:57 PM CDT Legal Sex Female 8:57 PM CDT Gender Identity Not on file Sexual Orientation Not on file Plan of Treatment Not on file
--- OUTSIDE RECORDS SUMMARY | 2025-04-08 13:58 | XMS_ITS | Encounter Summary ---
Author Organization [employer] ([place], [place], [place], [place]) Address [address] [place] [address] Care Team Providers Care Electronic Publishing Specialist Name Role Phone Unavailable Primary Care Provider Unavailabl e Encounter Details Date Type Department Care Team (Late st Contact Info) Description 08/12/2021 Transcribed Document [facility] [place] [address] [place] [address] ProviderMaxine MD [address] [place] [address] Social History Tobacco Use Types [...] Conversion Note - Historical ProviderMD - 08/12/2021 12:52 PM LAW REPORTER UM Authorization Entered On: 08/12/2021 12:52 EST Performed On: 08/12/2021 12:52 EST by Luisa Sinclair Rn-Utilization Review Primary Insurance Authorization Authorization and Policy Numbers : Insurance 1 Health Plan: [employer] Policy Number: [id number] Authorization Number: [id number] Insurance Primary Name : Esperanza [id number] Authorization Status-Primary : Admit approved Authorization Number-Primary : [id number] Number of Days Authorized-Primary : 1 Day(s) Authorized Service Begin Date-Primary : 08/11/2021 EST Authorized Service End Date-Primary : 08/12/2021 EST Historical Authorization Comments-Primary : Comment 1: pt is aramis for INPT lumbar fusion posterior 3 level on Saturday08-11-21 per STAR Esperanza approved 2 days INPT auth# [id number] (JOSEFINA ALMONTE, Route Service Manager 08/09/2021 13:43) Luisa Sinclair Rn-Utilization Review - 08/12/2021 12:52 EST Electronically signed by [facility], [facility] Conversion Marine Engine Mechanic Cerner at 12/28/2022 7:53 PM CDT documented in this encounter Plan of Treatment Not on file documented as of this encounter Visit Diagnoses Not on filedocumented in this encounter
--- OUTSIDE RECORDS SUMMARY | 2025-04-08 13:58 | XMS_ITS | Encounter Summary ---
Author Organization [employer] ([place], [place], [place], [place]) Address [address] [place] [address] Care Team Providers Care Group Leader Name Role Phone Unavailable Primary Care Provider Unavailabl e Encounter Details Date Type Department Care Team (Late st Contact Info) Description 08/12/2021 Transcribed Document [facility] [place] [facility] [place] [address] ProviderMaxine MD [address] [place] [address] Social History Tobacco Use Types [...] Conversion Note - Historical ProviderMD - 08/12/2021 2:00 PM CISCO CERTIFIED NETWORK PROFESSIONAL Pain Assessment Entered On: 08/12/2021 15:49 EST Performed On: 08/12/2021 14:23 EST by ELPIDIO GARCIA RN Intervention Information: acetaminophen Performed by Stacie Owusu RN-PATIENT CARE BEDSIDE NON-EXEMPT on 08/12/2021 13:23:00 EST acetaminophen,650mg Oral Pain Assessment Pain Assessment : Follow-up assessment Pain Scale Goal : 5 Pain Scale Used : 0-10 Scale Location : Back, Hips, bilateral Pain Improved by Intervention : Yes ELPIDIO GARCIA RN - 08/12/2021 15:47 EST Pain Scale Intensity : 5 ELPIDIO GARCIA RN - 08/12/2021 15:47 EST Image 4 - Images currently included in the form version of this document have not been included in the text rendition version of the form. documented in this encounter Plan of Treatment Not on file documented as of this encounter Visit Diagnoses Not on filedocumented in this encounter
--- OUTSIDE RECORDS SUMMARY | 2025-04-08 13:58 | XMS_ITS | Encounter Summary ---
Author Organization [employer] ([place], [place], [place], [place]) Address [address] [place] [address] Care Team Providers Care Hanging Flags Decorator Name Role Phone Unavailable Primary Care Provider Unavailabl e Encounter Details Date Type Department Care Team (Late st Contact Info) Description 08/14/2021 Transcribed Document [facility] [place] [address] [place] [address] ProviderMaxine MD [address] [place] [address] Social History Tobacco Use Types Packs/Day Years Used Date Smoking Tobacco: Never Assessed Comments Unknown Sex and Gender Information Value Date Recorded Sex Assigned at Unknown 03/06/2022 8:57 PM CDT Legal Sex Female 8:57 PM CDT Gender Identity Not on file Sexual Orientation Not on file documented as of this encounter Miscellaneous Notes * Cerner Conversion Note - Historical ProviderMD - 08/14/2021 8:55 AM DRIVER TRAINEE UM Authorization Entered On: 08/14/2021 8:55 EST Performed On: 08/14/2021 8:55 EST by Swathi Yancey Rn-Utilization Review Primary Insurance Authorization Authorization and Policy Numbers : Insurance 1 Health Plan: [facility] Policy Number: [id number] Authorization Number: [id number] Insurance Primary Name : Esperanza [id number] Authorization Status-Primary : Admit approved Authorization Number-Primary : [id number] Number of Days Authorized-Primary : 1 Day(s) Authorized Service Begin Date-Primary : 08/11/2021 EST Authorized Service End Date-Primary : 08/12/2021 EST Historical Authorization Comments-Primary : Comment 1: CLINICAL FGAXED FOR C/S DOS 08/13 [employer]IA [employer] (Bc, Swathi L, Rn-Utilization Review 08/14/2021 08:52) Comment 2: pt is aramis for INPT lumbar fusion posterior 3 level on Saturday08-11-21 per STAR Rudd approved 2 days INPT auth# [id number] (JOSEFINA ALMONTE, Vocational School Teacher 08/09/2021 13:43) Swathi Yancey Rn-Utilization Review - 08/14/2021 8:55 EST Electronically signed by [facility], [facility] Conversion Tromper Cerner at 12/28/2022 7:51 PM CDT documented in this encounter Plan of Treatment Not on file documented as of this encounter Visit Diagnoses Not on filedocumented in this encounter
--- OUTSIDE RECORDS SUMMARY | 2025-04-08 13:58 | XMS_ITS | Encounter Summary ---
Author Organization [employer] ([place], [place], [place], [place]) Address [address] [place] [address] Care Team Providers Care Plywood Patcher Name Role Phone Unavailable Primary Care Provider Unavailabl e Encounter Details Date Type Department Care Team (Late st Contact Info) Description 08/11/2021 Transcribed Document [facility] Family Medicine [facility] [place] [address] ProviderMaxine MD [address] [place] [address] Social History Tobacco Use Types [...] Conversion Note - Historical ProviderMD - 08/11/2021 9:09 AM PROPOSAL LEAD WRITER [facility] Main OR IntraOp Summary Primary Physician: CARLOS DAMON MD-SNU Finalized Date/Time: 08/14/21 13:12:29 Pt. Name: SERA CALI /Sex: 1970 Female Med Rec #: [id number] Physician: CARLOS DAMON MD-SNU Financial #: [id number] Pt. Type: I Room/Bed: [facility]/1 Admit/Disch: 08/11/21 06:40:00 - Institution: [facility] IntraOp Case Attendance Entry 1 Entry 2 Entry 3 Case Attendee NELSON, CARLOS CLIFF, PEREZ, PURA L., RN BAYLEE, KEO D, RN MD-SNU Role Performed Surgeon/Proceduralist, Landscape Nurseryman, First Landscape Nurseryman, Second First Time In 08/11/21 08:28:00 08/11/21 08:28:00 08/11/21 08:50:00 Time Out 08/11/21 12:05:00 08/11/21 12:05:00 08/11/21 09:12:00 Procedure Lumbar Fusion Posterior Lumbar Fusion Posterior Lumbar Fusion Posterior 3 Level 3 Level 3 Level Other Attendee Superficial Wound Closed By: Last Modified By: PURA PEREZ, PURA MENDOZA, PURA MENDOZA RN 08/11/21 12:06:13 08/11/21 12:06:13 08/11/21 12:06:13 Entry 4 Entry 5 Entry 6 Case Attendee Alisia Kilpatrick CST LONG, CARLA Real, ANAT BOO PA Role Performed Scrub, Second Scrub, First Physician medical billing assistant Time In 08/11/21 08:28:00 08/11/21 08:28:00 08/11/21 08:28:00 Time Out 08/11/21 12:05:00 08/11/21 12:05:00 08/11/21 12:05:00 Procedure Lumbar Fusion Posterior Lumbar Fusion Posterior Lumbar Fusion Posterior 3 Level 3 Level 3 Level Other Attendee Superficial Wound Closed By: Last Modified By: PURA PEREZ RN SMITH, MYRIAH L., PURA MENDOZA, KIMBERLY 08/11/21 12:06:13 08/11/21 12:06:13 08/11/21 12:06:13 Entry 7 Entry 8 Entry 9 Case Attendee ARSENIO DAS NA CORNEA, MIHAELA, MD-SRINATH NOBLES Role Performed POURER OFF/Nurse Health Facilities Surveyor Anesthesiologist of Caustic Preparer Record Time In 08/11/21 08:28:00 08/11/21 08:28:00 08/11/21 08:28:00 Time Out 08/11/21 12:05:00 08/11/21 12:05:00 08/11/21 12:05:00 Procedure Lumbar Fusion Posterior Lumbar Fusion Posterior Lumbar Fusion Posterior 3 Level 3 Level 3 Level Other Attendee Superficial Wound Closed By: Last Modified By: PURA PEREZ, PURA MENDOZA, PURA MENDOZA RN 08/11/21 12:06:13 08/11/21 12:06:13 08/11/21 12:06:13 Entry 10 Entry 11 Case Attendee Maximus Greenberg CST WASSON, SANDRA D, RN Role Performed Scrub, Third Landscape Nurseryman, First Time In 08/11/21 10:53:00 08/11/21 11:01:00 Time Out 08/11/21 12:05:00 08/11/21 12:05:00 Procedure Lumbar Fusion Posterior Lumbar Fusion Posterior 3 Level 3 Level Other Attendee LUNCH RELIEF RN LUNCH RELIEF Superficial Wound Closed By: Last Modified By: PURA PEREZ RN SMITH, MYRIAH L., RN 08/11/21 12:06:13 08/11/21 12:06:13 [facility] IntraOp Case Attendance Audit 08/11/21 12:06:13 Carton Repairer: VANDA Modifier: VANDA 1 <+> Time Out 1 <*> Procedure Lumbar Fusion Posterior 3 Level 2 <+> Time Out 2 <*> Procedure Lumbar Fusion Posterior 3 Level 3 <*> Procedure Lumbar Fusion Posterior 3 Level 4 <+> Time Out 4 <*> Procedure Lumbar Fusion Posterior 3 Level 5 <+> Time Out 5 <*> Procedure Lumbar Fusion Posterior 3 Level 6 <+> Time Out 6 <*> Procedure Lumbar Fusion Posterior 3 Level 7 <+> Time Out 7 <*> Procedure Lumbar Fusion Posterior 3 Level 8 <+> Time Out 8 <*> Procedure Lumbar Fusion Posterior 3 Level 9 <+> Time Out 9 <*> Procedure Lumbar Fusion Posterior 3 Level 10 <+> Time Out 10 <*> Procedure Lumbar Fusion Posterior 3 Level 11 <+> Time Out 11 <*> Procedure Lumbar Fusion Posterior 3 Level 08/11/21 11:04:01 Carton Repairer: VANDA Modifier: VANDA 10 <*> Procedure Lumbar Fusion Posterior 3 Level 10 <+> Other Attendee 08/11/21 11:02:12 Carton Repairer: VANDA Modifier: VANDA <+> 11 Case Attendee <+> 11 Role Performed <+> 11 Time In <+> 11 Procedure <+> 11 Other Attendee 08/11/21 10:53:31 Carton Repairer: VANDA Modifier: VANDA <+> 10 Case Attendee <+> 10 Role Performed <+> 10 Time In <+> 10 Procedure 08/11/21 09:31:44 Carton Repairer: VANDA Modifier: [email or web address] <+> 1 Procedure 2 <+> Time In 2 <*> Procedure Lumbar Fusion Posterior 3 Level 3 <*> Procedure Lumbar Fusion Posterior 3 Level 4 <+> Time In 4 <*> Procedure Lumbar Fusion Posterior 3 Level 5 <+> Time In 5 <*> Procedure Lumbar Fusion Posterior 3 Level 6 <+> Time In 6 <*> Procedure Lumbar Fusion Posterior 3 Level 7 <+> Time In 7 <*> Procedure Lumbar Fusion Posterior 3 Level 8 <+> Time In 8 <*> Procedure Lumbar Fusion Posterior 3 Level 9 <+> Time In 9 <*> Procedure Lumbar Fusion Posterior 3 Level [facility] IntraOp Case Times Entry 1 Patient In Room Time 08/11/21 08:28:00 Out Room Time 08/11/21 12:05:00 Anesthesia Start Time 08/11/21 08:28:00 Stop Time 08/11/21 12:05:00 Surgery / Procedure Times Start Time 08/11/21 09:09:00 Stop Time 08/11/21 11:59:00 Last Modified By: PURA PEREZ RN 08/11/21 12:05:50 [facility] IntraOp Case Times Audit 08/11/21 12:05:50 Carton Repairer: VANDA Modifier: [email or web address] <+> 1 Out Room Time <+> 1 Stop Time <+> 1 Stop Time [facility] IntraOp Cautery Entry 1 Entry 2 ESU Identification Cautery Type Monopolar ESU BiPolar ESU Cautery Type Comments ID Number [id number] ID Type Hospital Number Hospital Number Cautery Settings Cut Setting 40 8 Coag Setting 40 40 Blend Setting Bipolar Setting Argon Setting Argon Lowery ESU Grounding Pad Ground Pad Type Adult Grounding Pad Type Comment Grounding Pad Site Right thigh Grounding Pad Site Comment Grounding Pad PURA PEREZ RN Applied By Grounding Pad Site Warm, dry and intact Skin Condition Before Cautery Site Skin Condition Before Comment Grounding Pad Site Unchanged Skin Condition After Cautery Site Skin Condition After Comment Last Modified By: PURA PEREZ RN SMITH, MYRIAH L., RN 08/11/21 09:19:41 08/11/21 09:19:41 [facility] IntraOp Communication Entry 1 Entry 2 Communication To Family/Significant other Family/Significant other Comment START UPDATE Communication By PURA PEREZ RN SMITH, MYRIAH L., RN Date and Time 08/11/21 09:19:00 08/11/21 10:58:00 Last Modified By: PURA PEREZ RN SMITH, MYRIAH L., RN 08/11/21 09:19:15 08/11/21 10:58:36 [facility] IntraOp Communication Audit 08/11/21 10:58:36 Carton Repairer: SMITHML Modifier: SMITHML <+> 2 Communication By <+> 2 Date and Time <+> 2 Communication To <+> 2 Comment [facility] IntraOp Counts Verification Entry 1 Procedure Lumbar Fusion Posterior 3 Level Count Info Count Type Sponge, Sharps, Miscellaneous Counts Verification Baseline/pre-procedure Sequence Count Results Not Applicable Counts Performed By Count Performed By Maximus Greenberg CST (Scrub) Count Performed By KEO BEACH RN (RN) Last Modified By: PURA PEREZ RN 08/11/21 11:25:52 [facility] IntraOp Counts Verification Audit 08/11/21 11:25:52 Carton Repairer: SMITHML Modifier: SMITHML 1 <*> Procedure Lumbar Fusion Posterior 3 Level 1 <*> Count Performed By (Scrub) CARLA JEONG ST 1 <*> Count Performed By (RN) PURA PEREZ RN [facility] IntraOp Counts Final Entry 1 Procedure Lumbar Fusion Posterior 3 Level Final Count Info Count Type Sponge, Sharps, Miscellaneous Counts Verification Skin Closure/end of Sequence procedure Count Results Correct, surgeon notified Counts Performed By Count Performed By Maximus Greenberg CST (Scrub) Count Performed By KEO BEACH RN (RN) Last Modified By: PURA PEREZ RN 08/11/21 11:31:09 [facility] IntraOp Departure from OR Entry 1 Integumentary Assessment Integumentary WDL with exceptions Assessment WDL Transfer/Handoff Transfer to PACU Phase I Handoff Method Bedside/Face to face, Phone call Post-op Transport Luis Fernandoer/Edie Via Patient Transport ANAT TIAN PA, Accompanied by ARSENIO DAS NA Last Modified By: PURA PEREZ RN 08/11/21 09:20:14 [facility] IntraOp Drains and Tubes Entry 1 Device Type Justen Drain Size 15 FR Drain/Tube Activity Inserted Drain/Tube Suction Bulb Drain/Tube Drainage Sanguineous Device Location BACK Last Modified By: PURA PEREZ RN 08/11/21 09:20:31 [facility] IntraOp Dressing and Packing Entry 1 Type Dressing Location BACK Wound Dressing Item Occlusive dressing Applied By ANAT TIAN PA Other Comments COVADERMS AND NEOSPORIN Last Modified By: PURA PEREZ RN 08/11/21 09:20:57 [facility] IntraOp Fire Risk Assessment Entry 1 Fire Info Surgical Site or 0- No Incision Above the Xyphoid Open O2 Source 0- No (Mask or Cannula) Available Ignition 1- Yes (ESU, Laser, Light Source) Fire Risk 1 Assessment Score Fire Score Fire Risk Yes Assessment Complete Fire Risk PURA PEREZ RN Assessment Verified By Fire Risk 08/11/21 09:21:00 Assessment Verified Date/Time Fire Risk Standard Fire Yes Safety Precautions Followed Last Modified By: PURA PEREZ RN 08/11/21 09:21:11 [facility] IntraOp General Case Hardwood Floor Finisher 1 Case Information OR OR 10 [facility] Case Level 1 Room Verified Yes Wound Class 1 - Clean Specialty Neurosurgery Anesthesia Type General ASA Class 2 Diagnosis Preop Diagnosis LUMBAR SPONDYLOLISTHESIS Postop Same As Preop No Postop Diagnosis SEE DRS POST OP NOTES Wound Class Definitions Last Modified By: PURA PEREZ RN 08/11/21 09:21:36 [facility] IntraOp Implant Log Entry 1 Entry 2 Entry 3 Type Tissue Implant Implant (Synthetic) Implant (Synthetic) (Biologic) Implant Log Implant Type Tissue Implant Type Implant BONE VIVIGEN FRMBLE BONE PUTTY STIMULAN CAGE EIT PLIF H 11MM 8D Identification [id number] [id number] Description Implant Quantity 1 1 1 Implant Site LUMBAR SPINE LUMBAR SPINE LUMBAR SPINE Implant [id number] Identification Model Number Implant Identification Serial Number Implant [id number] Identification Lot Number Implant Lifenet:[employer] J&J:Depuy:Depuy Spine Identification Transplant Srv Environmental Services Supervisor Name: Implant [id number] Identification Catalog Number Implant Size Implant Has an Yes Yes Yes Expiration Date Implant Expiration 07/26/22 07/09/23 08/08/25 Date Wasted Radioactive Material Time Implanted Tissue Implant Continue for Tissue Implant Documentation Tissue Identification Number Graft Prep Per Yes Yes Environmental Services Supervisor Instructions: Tissue Preparation Method: Reconstitution Solution: Reconstitution Solution Lot Number Reconstitution Solution Expiration Date: Thawing Solution Thawing Solution Lot Number Thawing Solution Expiration Date Preparation Materials, Other Preparation Materials, Other Lot Number Preparation Materials, Other Expiration Date Tissue Prepared/Processed By Environmental Services Supervisor Yes Paperwork Completed Implant Type Comment Last Modified By: PURA PEREZ RN SMITH, MYRIAH L., RN SMITH, MYRIAH L., RN 08/11/21 10:12:40 08/11/21 10:13:58 08/11/21 10:50:20 Entry 4 Entry 5 Entry 6 Type Implant (Synthetic) Implant (Synthetic) Implant (Synthetic) Implant Log Implant Type Tissue Implant Type Implant CAGE EIT PLIF H 11MM 8D CAGE EIT PLIF H 11MM 8D CEMENT SPINAL Identification [id number] [facility]-[id number] Description Implant Quantity 1 1 1 Implant Site LUMBAR SPINE LUMBAR SPINE LUMBAR SPINE Implant Identification Model Number Implant Identification Serial Number Implant [id number] Identification Lot Number Implant J&J:Depuy:Depuy Spine J&J:Depuy:Depuy Spine J&J:Depuy:Depuy Spine Identification Environmental Services Supervisor Name: Implant [id number] Identification Catalog Number Implant Size Implant Has an Yes Yes Yes Expiration Date Implant Expiration 09/08/25 12/07/25 06/08/23 Date Wasted Radioactive Material Time Implanted Tissue Implant Continue for Tissue Implant Documentation Tissue Identification Number Graft Prep Per Environmental Services Supervisor Instructions: Tissue Preparation Method: Reconstitution Solution: Reconstitution Solution Lot Number Reconstitution Solution Expiration Date: Thawing Solution Thawing Solution Lot Number Thawing Solution Expiration Date Preparation Materials, Other Preparation Materials, Other Lot Number Preparation Materials, Other Expiration Date Tissue Prepared/Processed By Environmental Services Supervisor Paperwork Completed Implant Type Comment Last Modified By: PURA PEREZ RN SMITH, MYRIAH L., RN SMITH, MYRIAH L., RN 08/11/21 10:50:20 08/11/21 10:50:20 08/11/21 10:54:31 Entry 7 Entry 8 Entry 9 Type Implant (Synthetic) Implant (Synthetic) Implant (Synthetic) Implant Log Implant Type Hardware Hardware Hardware Tissue Implant Type Implant SCR SPNE LOUISA FIX SCR SPNE LOUISA FIX SCR BN VPR [id number] [id number] Identification [id number] Description Implant Quantity 4 4 2 Implant Site OP SITE OP SITE OP SITE Implant Identification Model Number Implant Identification Serial Number Implant Identification Lot Number Implant J&J:Depuy:Depuy Spine J&J:Depuy:Depuy Spine J&J:Depuy:Depuy Spine Identification Environmental Services Supervisor Name: Implant [id number] Identification Catalog Number Implant Size Implant Has an Expiration Date Implant Expiration Date Wasted Radioactive Material Time Implanted Tissue Implant Continue for Tissue Implant Documentation Tissue Identification Number Graft Prep Per Environmental Services Supervisor Instructions: Tissue Preparation Method: Reconstitution Solution: Reconstitution Solution Lot Number Reconstitution Solution Expiration Date: Thawing Solution Thawing Solution Lot Number Thawing Solution Expiration Date Preparation Materials, Other Preparation Materials, Other Lot Number Preparation Materials, Other Expiration Date Tissue Prepared/Processed By Environmental Services Supervisor Paperwork Completed Implant Type Comment Last Modified By: PURA PEREZ RN SMITH, MYRIAH L., RN SMITH, MYRIAH L., RN 08/11/21 11:24:38 08/11/21 11:24:38 08/11/21 11:24:38 Entry 10 Entry 11 Type Implant (Synthetic) Implant (Synthetic) Implant Log Implant Type Hardware Hardware Tissue Implant Type Implant MIS LARRY PLY SCRW SET MATT PRE-LORD W/LINE Identification [id number] Description Implant Quantity 10 2 Implant Site OP SITE OP SITE Implant Identification Model Number Implant Identification Serial Number Implant Identification Lot Number Implant J&J:Depuy:Depuy Spine J&J:Depuy:Depuy Spine Identification Environmental Services Supervisor Name: Implant [id number] Identification Catalog Number Implant Size Implant Has an Expiration Date Implant Expiration Date Wasted Radioactive Material Time Implanted Tissue Implant Continue for Tissue Implant Documentation Tissue Identification Number Graft Prep Per Environmental Services Supervisor Instructions: Tissue Preparation Method: Reconstitution Solution: Reconstitution Solution Lot Number Reconstitution Solution Expiration Date: Thawing Solution Thawing Solution Lot Number Thawing Solution Expiration Date Preparation Materials, Other Preparation Materials, Other Lot Number Preparation Materials, Other Expiration Date Tissue Prepared/Processed By Environmental Services Supervisor Paperwork Completed Implant Type Comment Last Modified By: PURA PEREZ RN SMITH, MYRIAH L., RN 08/11/21 11:24:38 08/11/21 11:24:38 [facility] IntraOp Implant Log Audit 08/11/21 11:24:38 Carton Repairer: VANDA Modifier: VANDA <+> 7 Implant Identification Description <+> 7 Implant Identification Environmental Services Supervisor Name: <+> 7 Implant Site <+> 7 Implant Quantity <+> 7 Implant Identification Catalog Number <+> 7 Implant Type <+> 7 Type <+> 8 Implant Identification Description <+> 8 Implant Identification Environmental Services Supervisor Name: <+> 8 Implant Site <+> 8 Implant Quantity <+> 8 Implant Identification Catalog Number <+> 8 Implant Type <+> 8 Type <+> 9 Implant Identification Description <+> 9 Implant Identification Environmental Services Supervisor Name: <+> 9 Implant Site <+> 9 Implant Quantity <+> 9 Implant Identification Catalog Number <+> 9 Implant Type <+> 9 Type <+> 10 Implant Identification Description <+> 10 Implant Identification Environmental Services Supervisor Name: <+> 10 Implant Site <+> 10 Implant Quantity <+> 10 Implant Identification Catalog Number <+> 10 Implant Type <+> 10 Type <+> 11 Implant Identification Description <+> 11 Implant Identification Environmental Services Supervisor Name: <+> 11 Implant Site <+> 11 Implant Quantity <+> 11 Implant Identification Catalog Number <+> 11 Implant Type <+> 11 Type 08/11/21 10:54:31 Carton Repairer: VANDA Modifier: VANDA <+> 6 Implant Identification Description <+> 6 Implant Identification Lot Number <+> 6 Implant Identification Environmental Services Supervisor Name: <+> 6 Implant Expiration Date <+> 6 Implant Site <+> 6 Implant Quantity <+> 6 Implant Identification Catalog Number <+> 6 Implant Has an Expiration Date <+> 6 Type 08/11/21 10:50:20 Carton Repairer: VANDA Modifier: VANDA <+> 3 Implant Identification Description <+> 3 Implant Identification Lot Number <+> 3 Implant Identification Environmental Services Supervisor Name: <+> 3 Implant Expiration Date <+> 3 Implant Site <+> 3 Implant Quantity <+> 3 Implant Identification Catalog Number <+> 3 Implant Has an Expiration Date <+> 3 Type <+> 4 Implant Identification Description <+> 4 Implant Identification Lot Number <+> 4 Implant Identification Environmental Services Supervisor Name: <+> 4 Implant Expiration Date <+> 4 Implant Site <+> 4 Implant Quantity <+> 4 Implant Identification Catalog Number <+> 4 Implant Has an Expiration Date <+> 4 Type <+> 5 Implant Identification Description <+> 5 Implant Identification Lot Number <+> 5 Implant Identification Environmental Services Supervisor Name: <+> 5 Implant Expiration Date <+> 5 Implant Site <+> 5 Implant Quantity <+> 5 Implant Identification Catalog Number <+> 5 Implant Has an Expiration Date <+> 5 Type 08/11/21 10:13:58 Carton Repairer: CHRISML Modifier: SMITHML <+> 2 Implant Identification Description <+> 2 Implant Identification Lot Number <+> 2 Implant Identification Environmental Services Supervisor Name: <+> 2 Implant Expiration Date <+> 2 Implant Site <+> 2 Implant Quantity <+> 2 Implant Identification Catalog Number <+> 2 Graft Prep Per Environmental Services Supervisor Instructions: <+> 2 Implant Has an Expiration Date <+> 2 Type [facility] IntraOp Intraoperative Assessment Entry 1 Handoff Method Bedside/Face to face, Online nursing summary Valid History / Yes Physical in Chart Preoperative Yes Checklist Reviewed/Evaluated Allergies Reviewed Yes Patient is Latex No Sensitive Isolation Not applicable Precautions Noted Level of WDL Consciousness (WDL = Alert, Oriented to Person, Place, and Time) Skin Assessment No Verified Present Upon IVs Arrival to OR Last Modified By: PURA PEREZ RN 08/11/21 09:21:50 [facility] IntraOp Intraoperative Equipment Entry 1 Type Equipment Equipment Equipment Waste Management System ID Number [id number] Intraop Monitoring Antiembolic Devices Antiembolic Devices Sequential compression device, knee high Antiembolic Device Bilateral Location Antiembolic Device [id number] ID Number Scopes Photo/Video Documentation Last Modified By: PURA PEREZ RN 08/11/21 09:23:05 [facility] IntraOp Medication Admin Entry 1 Entry 2 Entry 3 Medication/Irrigant lidocaine 1% w/ Marcaine 0.25% 30ml Neosporin 15Gm ointment epinephrine 1:100,000 vial - [id number] - [id number] 30ml vial - [id number] Combo Med List Time Administered Route of LOCAL LOCAL TOPICAL Administration Dose Dose 20 30 Unit of Measure ml ml Volume Administered By CARLOS DAMON, CARLOS DAMON CULLER, JONATHAN, PA MD-SNU -SNU Procedure Irrigation Irrigant Volume In Irrigant Volume Out Last Modified By: PURA PEREZ RN SMITH, MYRIAH L., RN SMITH, MYRIAH L., RN 08/11/21 09:24:34 08/11/21 09:24:34 08/11/21 09:24:34 Entry 4 Entry 5 Entry 6 Medication/Irrigant SPNG SURGFOAM thrombin 5000units vancomycin 1Gm vial - [id number] topical powder - [id number] Combo Med List 1 - Combo Med 1 - Combo Med Time Administered Route of TOPICAL TOPICAL IRRIGATION Administration Dose Dose 1 5000 1 Unit of Measure pkt units gram Volume Administered By CARLOS DAMON TUTT, MATTHEW PAIGE, TUTT, MATTHEW PAIGE, MD-SNU MD-SNU -SNU Procedure Irrigation Irrigant Volume In Irrigant Volume Out Last Modified By: PURA PEREZ RN SMITH, MYRIAH L., RN SMITH, MYRIAH L., RN 08/11/21 09:24:34 08/11/21 09:24:34 08/11/21 09:24:34 Entry 7 Entry 8 Medication/Irrigant Garamycin 80mg 2ml vancomycin 1Gm vial - injection - [id number] Combo Med List Time Administered Route of ANTIBIOTIC BEADS ANTIBIOTIC BEADS Administration Dose Dose 3 1 Unit of Measure ml gram Volume Administered By CARLOS DAMON TUTT, MATTHEW PAIGE, MD-SNU MD-SNU Procedure Irrigation Irrigant Volume In Irrigant Volume Out Last Modified By: PURA PEREZ RN SMITH, MYRIAH L., RN 08/11/21 10:27:09 08/11/21 10:27:09 [facility] IntraOp Medication Admin Audit 08/11/21 10:27:09 Carton Repairer: VANDA Modifier: VANDA <+> 7 Medication/Irrigant <+> 7 Route of Administration <+> 7 Administered By <+> 7 Dose <+> 7 Unit of Measure <+> 8 Medication/Irrigant <+> 8 Route of Administration <+> 8 Administered By <+> 8 Dose <+> 8 Unit of Measure [facility] IntraOp Patient Positioning Entry 1 Procedure Lumbar Fusion Posterior 3 Level Body Position Prone Left Arm Position Secured on padded arm board Right Arm Position Secured on padded arm board Left Leg Position Uncrossed, parallel Right Leg Position Uncrossed, parallel Feet Uncrossed Yes Pressure Points Yes Checked Positioning Devices Arm Board, West Table, Head Rest, Pillows, Pad, Arm, Safety Strap, Thighs Positioned By CARLOS DAMON MD-TE, ANAT TIAN PA, PURA PEREZ, RN, ARSENIO DAS NA, KEO BEACH, RN Position Verified Positioning Yes Verified by Anesthesia Positioning Yes Verified by Surgeon Last Modified By: PURA PEREZ RN 08/11/21 09:25:24 [facility] IntraOp Sign In Entry 1 Patient, Site, Yes Procedure Identified Surgical Consent Yes Confirmed Relevant Surgical Yes Documents Available Surgical Site Yes Marked by person performing procedure Anesthesia Machine Yes Check Completed Medication Checks Yes Completed Allergies Yes Airway Difficult Yes Airway/Aspiration Risk Difficult Yes Airway/Aspiration Intervention Equipment Available Blood Loss Risk Yes Blood Loss Yes Intervention Equipment Prepared and Ready Blood Identifiers Yes Verified Per Policy Hypothermia Risk Yes Warming Measures Yes Taken Last Modified By: PURA PEREZ RN 08/11/21 09:25:37 [facility] IntraOp Sign Out Entry 1 RN Confirmation Surgical Yes Procedure(s) Identified Instrument, Sponge Yes and Sharps Counts Correct/Documented Equipment Problems N/A Documented Specimen Labeled N/A Correctly Urinary Catheter Yes Documented in IView Wound Yes classification reviewed, verified and updated post case in both the General Case Data and Procedure segments [place] Patient Yes Recovery Concerns Reviewed with Anesthesia Provider, Surgeon and RN [place] Patient Yes Management Concerns Reviewed with Anesthesia Provider, Surgeon and RN Safety Checklist Yes Elements Complete? RN Sign Out PURA PEREZ RN Signature RN Sign Out 08/11/21 12:05:00 Signature Date/Time Plan of Care Outcome - Fire Risk OUTCOME STATEMENT: Goal met Patient is free from injury related to surgical fire Plan of Care Outcome - Pt Positioning OUTCOME STATEMENT: Goal met Absence of signs and symptoms of positioning injury. Plan of Care Outcome - Skin Prep OUTCOME STATEMENT: Goal met Intraoperative care is consistent with measures to prevent infection Plan of Care Outcome - Xray/Images OUTCOME STATEMENT: Goal met Absence of observable signs or symptoms of radiation injury Plan of Care Outcome - Counts OUTCOME STATEMENT: Goal met Absence of signs and symptoms of injury related to extraneous objects Last Modified By: PURA PEREZ RN 08/11/21 12:05:58 [facility] IntraOp Sign Out Audit 08/11/21 12:05:58 Carton Repairer: VANDA Modifier: [email or web address] <+> 1 RN Sign Out Signature Date/Time [facility] IntraOp Skin Prep Entry 1 Procedure Lumbar Fusion Posterior 3 Level Prescribed Yes Pre-Surgical Prep Completed Prep Area BACK Intraop Prep Integumentary WDL Assessment WDL Prep Agents Alcohol, Chlorhexadine gluconate, DuraPrep Prep by KEO BEACH RN Hair Removal Methods No hair removal performed Last Modified By: PURA PEREZ RN 08/11/21 09:31:25 [facility] IntraOp Surgical Procedures Entry 1 Procedure Lumbar Fusion Posterior 3 Level Additional L3-S1 PLIF, ILIAC Procedure BOLTS WITH ZIEHM , Description SCREW AUGMENTATION Primary Procedure Yes Primary Surgeon CARLOS DAMON MD-SNU Start 08/11/21 09:09:00 Stop 08/11/21 11:59:00 Anesthesia Type General Specialty Neurosurgery Wound Class 1 - Clean Last Modified By: PURA PEREZ RN 08/11/21 12:06:12 [facility] IntraOp Surgical Procedures Audit 08/11/21 12:06:12 Carton Repairer: VANDA Modifier: [email or web address] 1 <*> Procedure Lumbar Fusion Posterior 3 Level 1 <+> Stop 1 <*> Additional Procedure Description L3-S1 PLIF, ILIAC BOLTS WITH ZEIHM , SCREW AUGMENTATION 08/11/21 11:01:43 Carton Repairer: VANDA Modifier: VANDA 1 <*> Procedure Lumbar Fusion Posterior 3 Level 1 <*> Additional Procedure Description L3-S1 PLIF, POSSIBLE ILIAC BOLTS WITH ZEIHM [facility] IntraOp Temp Regulation Devices Entry 1 Temp Regulation Temperature Forced Air Warming Regulation Device device, Room temperature, Warm blankets Temperature 24970 Regulation Device Serial/Unit Number Temperature Upper body Regulation Site Temperature ARSENIO DAS NA Regulation Device Applied by Last Modified By: PURA PEREZ RN 08/11/21 09:32:10 [facility] IntraOP Time Out Entry 1 Procedure to be Lumbar Fusion Posterior Performed 3 Level Time Out Time Out Pause Time 08/11/21 09:08:00 All activity Yes suspended (unless life threatening emergency) Team Verbally Correct patient Confirms Information identity, Correct side and site are marked, Consent form is present and accurate, Agreement on the procedure to be done, Correct patient position, Relevant images/results properly labeled/appropriately displayed, Confirm antibiotics have been administered, Confirm the skin prep has dried, Confirm prosthesis/implant/devic e is present, Performed in location of procedure after prepped/draped Antibiotic Yes Prophylaxis Administered Or In Progress Within the Last 60 Minutes Beta Melinda N/A Administered Venous Yes Thromboembolism Prophylaxis Required Anticipated Critical Events Surgeon None expected Anesthesia Provider None expected Nursing Assures Sterility of instruments, Implant Availability Essential Imaging Yes Labeled and Displayed Last Modified By: PURA PEREZ RN 08/11/21 09:09:01 [facility] IntraOp X-Ray and Images Entry 1 X-Ray/Imaging Type Other Fluoroscopy Type Other Site BACK Sample Steamer Name SRINATH THOMAS Protective Devices Yes Used X-Ray and Imaging CURVE AND ZEIHM FOR Comment INTRAOPERATIVE GUIDANCE Last Modified By: PURA PEREZ RN 08/11/21 09:33:47 Case Comments <None> Finalized By: MONIQUE LOWERY Document Signatures Signed By: PURA PEREZ RN 08/11/21 12:06 MONIQUE LOWERY 08/14/21 13:12 Unfinalized History Date/Time Username Reason for Unfinalizing Freetext Reason for Unfinalizing 08/14/21 13:09 GAGE Correct Billing Electronically signed by Yolanda [facility] Conversion Morning Caregiver Cerner at 12/28/2022 7:41 PM CDT documented in this encounter Plan of Treatment Not on file documented as of this encounter Visit Diagnoses Not on filedocumented in this encounter
--- OUTSIDE RECORDS SUMMARY | 2025-04-08 13:58 | XMS_ITS | Encounter Summary ---
Author Organization [employer] ([place], [place], [place], [place]) Address [address] [place] [address] Care Team Providers Care Environmental Services Worker Name Role Phone Unavailable Primary Care Provider Unavailabl e Encounter Details Date Type Department Care Team (Late st Contact Info) Description 08/11/2021 Transcribed Document [facility] Family Medicine [facility] [place] [address] ProviderMaxine MD [address] [place] [address] Social History Tobacco Use Types [...] Conversion Note - Historical ProviderMD - 08/11/2021 3:44 PM EMERGENCY PLANNING AND RESPONSE MANAGER Treatment Intervention, PT Entered On: 08/13/2021 9:57 EST Performed On: 08/13/2021 9:19 EST by Olesya Ahumada, COAT BASTER NON-EXEMPT General Information, PT Visit Type, PT : Treatment Note Patient Orders : Order Date Order Ordering 08/11/2021 12:13 Physical Therapy Eval and Treat Ordered By: CARLOS DAMON MD-SNU 08/11/2021 15:44 PT Additional Treatment Ordered By: TYE TIERNEY, MONIKA Active Diagnoses : 08/11/2021 12:00 Other spondylosis with myelopathy, lumbar region Therapy Diagnosis, PT : Dx: pain limiting function Admission Date : 08/11/2021 06:40 Personal Devices : Personal Devices No Devices Recorded Assistive Devices : Assistive Devices No Devices Recorded Precautions in Place : Fall prevention measures, Log roll precautions, Spinal Precautions Olesya Ahumada COAT BASTER NON-EXEMPT - 08/13/2021 9:44 EST General Status Patient Received Status : Supine in bed Treatment Start Time : 08/13/2021 8:50 EST Patient Left Status : Supine in bed, RN/PCT informed, Communication board completed, All needs met and within reach RN/PCT Informed Comment : KIMBERLY gracia treatment. Treatment End Time : 08/13/2021 9:19 EST Treatment Time : 29 Minute(s) Actual Treatment Time : 29 Minute(s) Olesya Ahumada COAT BASTER NON-EXEMPT - 08/13/2021 9:44 EST Functional Mobility Mobility Grid Supine to Sit : Supervision/set-up Sit to Stand : Rehab Minimal assistance Stand to Sit : Supervision/set-up Sit to Supine : Rehab Minimal assistance Olesya Ahumada COAT BASTER NON-EXEMPT - 08/13/2021 9:44 EST Supine to Sit Device : Rails Sit to Stand Device : Belt, gait, Walker, front wheel Stand to Sit Device : Belt, gait, Walker, front wheel Sit to Supine Devices : Rails Functional MobilityComment : Applied back brace. Educated patient on log roll techique. Performed bed mobilities supine to sit supervision and sit to supine min A transitioning BLEs into bed with extra time required to complete slowly. Sit to stand min A from EOB to RW. Olesya Ahumada COAT BASTER NON-EXEMPT - 08/13/2021 9:44 EST Gait Training/Assessment, PT Weight Bearing Status Maintained : Yes Weight Bearing Status : Full Gait Assistance Level : Assist, minimal Walking Distance : Ambulated RW x 100ft min A. Ambulatory Devices : Gait belt, Walker, front wheel Gait Deviations : Yes Left Lower Gait Deviation : Step length, decreased Right Lower Gait Deviation : Step length, decreased Gait Training Comment : Gait training with RWx 100ft min A for safety/ balance, exhibits decreased step length. Verbal cues for spinal precautions during transitional turns. Olesya Ahumada COAT BASTER NON-EXEMPT - 08/13/2021 9:44 EST Cognitive Treatment, PT Orientation : Oriented x 4 Olesya Ahumada COAT BASTER NON-EXEMPT - 08/13/2021 9:44 EST Edu Topics Physical Therapy Education Grid Bed Mobility Training : Needs further teaching, Needs reinforcement Precaution/Contraindication : Verbalizes understanding Role of Physical Therapy : Verbalizes understanding Use of Assistive Device : Needs further teaching, Needs reinforcement, Verbalizes understanding Olesya Ahumada COAT BASTER NON-EXEMPT - 08/13/2021 9:44 EST Teaching/Learning Assessment Barriers To Learning : None evident Olesya Ahumada COAT BASTER NON-EXEMPT - 08/13/2021 9:44 EST Indication Assesessment, PT Physical Therapy Indicated : Yes Olesya Ahumada COAT BASTER NON-EXEMPT - 08/13/2021 9:44 EST Plan of Care, PT PT Tx Plan/Goals Established w Patient : Yes Olesya Ahumada COAT BASTER NON-EXEMPT - 08/13/2021 9:44 EST Group Home Goals Mobility/Bed Mobility LTG PT Grid Goal #1 Activity : Supine to sit Cues : No cues Assist : Independent, modified Equipment : Bed, hospital Date to Meet : 08/25/2021 EST Goal Status : Progressing, continue Comment : with log roll technique Olesya Ahumada COAT BASTER NON-EXEMPT - 08/13/2021 9:44 EST Ambulation LTG Grid Goal #1 Device : Walker, front wheel Distance : 250' Cues : No cues Assist : Independent, modified Date to Meet : 08/25/2021 EST Goal Status : Progressing, continue Olesya Ahumada COAT BASTER NON-EXEMPT - 08/13/2021 9:44 EST Stairs LTG Grid Goal #1 Device : Walker, front wheel Number of Steps : 1 Handrail(s) : No handrails Assist : Independent, modified Date to Meet : 08/25/2021 EST Goal Status : Intial Goal Olesya Ahumada COAT BASTER NON-EXEMPT - 08/13/2021 9:44 EST Treatment Note Subjective Comment : Patient agreeable to PT session this date. Additional Objective Information : Applied back brace. Educated patient on log roll techique and spinal precautions. Performed bed mobilities supine to sit supervision with extra time to slowly complete and sit to supine min A transitioning BLEs into bed. Sit to stands from EOB to RW min A. Ambulated with RWx 100ft min A for safety, verbal cues for spinal precautions during transitional turns. Assessment : Patient exhibits good mobility requires additional therapy to improve functional mobilities and education for spinal precautions/ log roll techique to safely return home. Plan for Treatment : Continue with POC. Olesya Ahumada COAT BASTER NON-EXEMPT - 08/13/2021 9:44 EST Pain Assessment Pain Comment : Patient reports 10/10 pain LLE/ back, however given pain meds and nursing aware. Olesya Ahumada COAT BASTER NON-EXEMPT - 08/13/2021 9:44 EST Image 1 - Images currently included in the form version of this document have not been included in the text rendition version of the form. Anticipated Discharge Needs, OT/PT Anticipated Discharge to : Home, with home health Olesya Ahumada COAT BASTER NON-EXEMPT - 08/13/2021 9:44 EST [place] PT Charges PET CAREGIVER PT Ther Activities Ea 15 Min-PET CAREGIVER : 2 Olesya Ahumada COAT BASTER NON-EXEMPT - 08/13/2021 9:44 EST Electronically signed by [facility] Conversion [employer] Professional Cerner at 12/30/2022 8:03 PM CDT documented in this encounter Plan of Treatment Not on file documented as of this encounter Visit Diagnoses Not on filedocumented in this encounter
--- OUTSIDE RECORDS SUMMARY | 2025-04-08 13:58 | XMS_ITS | Encounter Summary ---
Author Organization [employer] ([place], [place], [place], [place]) Address [address] [place] [address] Care Team Providers Care Inside Sales Trainer Name Role Phone Unavailable Primary Care Provider Unavailabl e Encounter Details Date Type Department Care Team (Late st Contact Info) Description 08/11/2021 Transcribed Document [facility] [address] [facility] [address] [place] [address] Edwin Delgado MD [address] [place] [address] Social History Tobacco Use Types Packs/Day Years Used Date Smoking Tobacco: Never Assessed Comments Unknown Sex and Gender Information Value Date Recorded Sex Assigned at Unknown 03/06/2022 8:57 PM CDT Legal Sex Female 8:57 PM CDT Gender Identity Not on file Sexual Orientation Not on file documented as of this encounter Miscellaneous Notes * Cerner Conversion Note - Edwin Delgado MD - 08/11/2021 1:18 PM EST DATE OF PROCEDURE: 08/11/2021 SURGEON: Edwin Delgado MD PRIMARY CARE PHYSICIAN: PREOPERATIVE DIAGNOSIS: L3-4, L4-5, and L5-S1 instability and stenosis. POSTOPERATIVE DIAGNOSIS: L3-4, L4-5, and L5-S1 instability and stenosis. INDICATION FOR PROCEDURE: Mechanical back pain and lumbar radiculopathy, unresponsive to conservative management. PROCEDURES PERFORMED: 1. L3-4, L4-5 and L5-S1 posterior lumbar interbody fusion. 2. Bilateral pelvic fixation. 3. L3 through S1 decompressive laminectomy. 4. Intraoperative CT scan with stereotactic navigation. FISHER POT: Narendra Jose, PA-C. TYPE OF ANESTHESIA: GEA. DESCRIPTION OF PROCEDURE IN DETAIL: Once consent was noted to be on chart, Ms. Matthews was taken to the operating room. She was anesthetized and placed into the prone position on a West spine frame. All pressure points were carefully checked and padded. Preoperative antibiotics were given. She was prepped and draped in usual sterile fashion. A time-out was called. An intraoperative 3D fluoroscopy was performed using stereotactic navigation, and 2 Steinmann pins were placed into the right iliac crest. A two-pin fixator was placed on these pins and reference array for further stereotaxis. A #10 blade was used to make a midline incision from L3-S2. Bovie electrocautery was used to dissect down to and through the lumbosacral fascia. A subperiosteal dissection was performed bilaterally. Using stereotactic navigation in the usual freehand techniques and the arGEN-X system, pedicle screws were placed at L3, L4, L5, and S1 bilaterally. Her pedicles were large, so 7 mm screws were used throughout. Each trajectory was tapped and a spring probe passed down the trajectory verifying good bone circumferentially. S2 AI screws were tapped under stereotactic navigation and placed bilaterally. A 9 x 90 mm screws were used x2. A repeat 3D fluoroscopy showed good placement of all hardware. Laminectomy was performed at L3-4, L4-5 and L5-S1 fully decompressing the descending nerve roots. Bilateral foraminotomy was performed at each segment, completely compressing the exiting nerve roots. The diskectomy was performed at L3-4, L4-5 and L5-S1 and a conduit cage packed with [employer] and recycled lamina and spinous process was placed in the each disk space for a total of 3 interbody spacers, one at each level. No CSF was visualized throughout this procedure. We verified that all descending exiting nerve roots were free. A jared was placed from L3-S2 bilaterally and set screws torqued to factory specifications. Posterolateral bone at L3-4, L4-5 and L5-S1 was decorticated bilaterally. Additional allograft and autograft were placed for a posterolateral fusion. We confirmed that everything was torqued down to factory specifications. All interbody spacers were well placed based on intraoperative fluoroscopy. We augmented the top screws as her bone quality was a bit soft. Augmentation was performed under fluoroscopic guidance. The wound was copiously irrigated and a JENNIFER drain was left into the epidural space and some vancomycin/gentamicin beads were left in to try to prevent a postoperative infection. One Vicryl reapproximated the paraspinous muscles and fascia. 2-0 Vicryl closed the space and closed the skin subcuticularly. The skin was stapled. Bacitracin and Covaderm were applied. Narendra Garcia assisted throughout the surgery and helped perform the closure. SPECIMEN SENT: None. ESTIMATED BLOOD LOSS: 300 mL. DRAINS: [place]. COMPLICATIONS: None. /[id number] Edwin Delgado MD MPT/AQ / MPT / MODL /[id number] CC: documented in this encounter Plan of Treatment Not on file documented as of this encounter Visit Diagnoses Not on filedocumented in this encounter
--- OUTSIDE RECORDS SUMMARY | 2025-04-08 13:58 | XMS_ITS | Referral Summary ---
Author Organization [employer] ([place], [place], [place], [place]) Address [address] [place] [address] Care Team Providers Care Client Server Programmer Name Role Phone Unavailable Primary Care Provider [...]
--- OUTSIDE RECORDS SUMMARY | 2025-04-08 13:58 | XMS_ITS | Encounter Summary ---
Author Organization [employer] ([place], [place], [place], [place]) Address [address] [place] [address] Care Team Providers Care Clinical Staff Educator Name Role Phone Unavailable Primary Care Provider Unavailabl e Encounter Details Date Type Department Care Team (Late st Contact Info) Description 08/14/2021 Transcribed Document [facility] Family Medicine [facility] [place] [address] ProviderMaxine MD [address] [place] [address] Social History Tobacco Use Types Packs/Day Years Used Date Smoking Tobacco: Never Assessed Comments Unknown Sex and Gender Information Value Date Recorded Sex Assigned at Unknown 03/06/2022 8:57 PM CDT Legal Sex Female 8:57 PM CDT Gender Identity Not on file Sexual Orientation Not on file documented as of this encounter Miscellaneous Notes * Cerner Conversion Note - Maxine ProviderMD - 08/14/2021 2:45 PM PMO CONSULTANT Patient Education Materials Follows: Spinal Fusion, Adult, Care After This sheet gives you information about how to care for yourself after your procedure. Your health care provider may also give you more specific instructions. If you have problems or questions, contact your health care provider. What can I expect after the procedure? After the procedure, it is common to have: ??? Back pain and stiffness. ??? Pain in the incision area. Follow these instructions at home: Medicines ??? Take alke-zky-juervpy and prescription medicines only as told by your health care provider. These include any pain medicines or blood-thinning medicines (anticoagulants). ??? If you were prescribed an antibiotic medicine, take it as told by your health care provider. Do not stop taking the antibiotic even if you start to feel better. ??? Ask your health care provider if the medicine prescribed to you: ? Requires you to avoid driving or using machinery. ? Can cause constipation. You may need to take these actions to prevent or treat constipation: ? Drink enough fluid to keep your urine pale yellow. ? Take tqhk-upx-vsmfcsm or prescription medicines. ? Eat foods that are high in fiber, such as beans, whole grains, and fresh fruits and vegetables. ? Limit foods that are high in fat and processed sugars, such as fried or sweet foods. If you have a brace: ??? Wear the brace as told by your health care provider. Remove it only as told by your health care provider. ??? Keep the brace clean and dry. ??? Ask your health care provider if you should remove the brace to bathe or shower. ??? Check the skin around the brace every day. Tell your health care provider about any concerns. Managing pain, stiffness, and swelling ??? If directed, put ice on the affected area. To do this: ? If you have a removable brace, remove it as told by your health care provider. ? Put ice in a plastic bag. ? Place a towel between your skin and the bag. ? Leave the ice on for 20 minutes, 2?3 times a day. Incision care ??? Follow instructions from your health care provider about how to take care of your incision. Make sure you: ? Wash your hands with soap and water for at least 20 seconds before and after you change your bandage (dressing). If soap and water are not available, use hand sailing instructor. ? Change your dressing as told by your health care provider. ? Leave stitches (sutures), skin glue, or adhesive strips in place. These skin closures may need to be in place for 2 weeks or longer. If adhesive strip edges start to loosen and curl up, you may trim the loose edges. Do not remove adhesive strips completely unless your health care provider tells you to do that. ??? Keep your incision clean and dry. ??? Do not take baths, swim, or use a hot tub until your health care provider approves. Ask your health care provider if you may take showers. You may only be allowed to take sponge baths. ??? Check your incision area every day for signs of infection. Check for: ? More redness, swelling, or pain. ? Fluid or blood. ? Warmth. ? Pus or a bad smell. Activity ??? Rest and protect your back as told by your health care provider. ??? Follow instructions from your health care provider about how to move and use good posture to help your spine heal. ??? Do not lift anything at all, or anything that is heavier than the limit you are told, until your health care provider says that it is safe. ??? Do not twist or bend at the waist until your health care provider approves. ??? Avoid the following: ? Pushing and pulling motions. ? Lifting anything over your head. ? Sitting or lying down in the same position for long periods of time. ??? Get up to take short walks every 1?2 hours. This is important to improve blood flow and breathing. Ask for help if you feel weak or unsteady. ??? Do not exercise until your health care provider approves. Once your health care provider has approved exercise, ask him or her what kinds of exercises you can do to make your back stronger (physical therapy). General instructions ??? Do not drive until your health care provider approves. ??? Wear compression stockings as told by your health care provider. These stockings help to prevent blood clots and reduce swelling in your legs. ??? Do not remove your drain. Follow instructions from your health care provider about how to take care of your drain. ??? Do not use any products that contain nicotine or tobacco, such as cigarettes, e-cigarettes, and chewing tobacco. These can delay bone healing after surgery. If you need help quitting, ask your health care provider. ??? Keep all follow-up visits as told by your health care provider. This is important. Contact a health care provider if: ??? You have pain that gets worse or does not get better with medicine. ??? Your legs become painful, swollen, warm to the touch, or red. ??? You have any of these signs of infection: ? More redness, swelling, or pain around your incision. ? Fluid or blood coming from your incision. ? Warmth coming from your incision. ? Pus or a bad smell coming from your incision. ? A fever. ??? You vomit or feel nauseous. ??? You have weakness or numbness in your legs that is new or getting worse. ??? You have trouble controlling urination or bowel movements. Get help right away if you: ??? Have severe pain. ??? Have a headache that is worse when you are sitting or standing. ??? Have chest pain. ??? Have trouble breathing. ??? Develop a cough. These symptoms may represent a serious problem that is an emergency. Do not wait to see if the symptoms will go away. Get medical help right away. Call your local emergency services (911 in the [place] Do not drive yourself to the hospital. Summary ??? After the procedure, it is common to have back pain and pain in the incision area. ??? Apply ice and take rgae-pxe-arxvwmr and prescription medicines as told by your health care provider. ??? Rest and protect your back as told by your health care provider. Do not twist or bend at the waist. Get up to take short walks every 1?2 hours. This information is not intended to replace advice given to you by your health care provider. Make sure you discuss any questions you have with your health care provider. Document Revised: 07/11/2020 Document Reviewed: 07/11/2020 [employer] Patient Education ? 2020 [employer] documented in this encounter Plan of Treatment Not on file documented as of this encounter Visit Diagnoses Not on filedocumented in this encounter
--- OUTSIDE RECORDS SUMMARY | 2025-04-08 13:58 | XMS_ITS | Encounter Summary ---
Author Organization [employer] ([place], [place], [place], [place]) Address [address] [place] [address] Care Team Providers Care Account Installation Specialist Name Role Phone Unavailable Primary Care Provider Unavailabl e Encounter Details Date Type Department Care Team (Late st Contact Info) Description 08/11/2021 Transcribed Document [facility] [place] Medicine [facility] [place] [address] ProviderMaxine MD [address] [place] [address] Social History Tobacco Use Types [...] - Historical ProviderMD - 08/11/2021 9:09 AM ENGINEERING AND OPERATIONS DIRECTOR [facility] Main OR Preop Summary Primary Physician: CARLOS DAMON MD-SNU Finalized Date/Time: 08/11/21 12:47:41 Pt. Name: SERA MATTHEWS /Sex: 1970 Female Med Rec #: [id number] Physician: CARLOS DAMON MD-TE Financial #: [id number] Pt. Type: I Room/Bed: ASA/6 Admit/Disch: 08/11/21 06:40:00 - Institution: [facility] PreOp Case Times Entry 1 In Preop 08/11/21 06:27:00 Ready for Holding n/a Room Patient Ready for 08/11/21 07:25:00 Surgery Patient Out of Preop 08/11/21 08:24:00 Patient Out of n/a Holding Room Last Modified By: Ally Davies RN 08/11/21 12:47:41 [facility] PreOp Case Times Audit 08/11/21 12:47:41 Lei Seller: [id number] Modifier: [id number] <+> 1 Patient Out of Preop Finalized By: Ally Davies RN Document Signatures Signed By: Ally Davies RN 08/11/21 12:47 Electronically signed by Yolanda [facility] Conversion Yield Improvement Engineer Cerner at 12/28/2022 7:47 PM CDT documented in this encounter Plan of Treatment Not on file documented as of this encounter Visit Diagnoses Not on filedocumented in this encounter
--- OUTSIDE RECORDS SUMMARY | 2025-04-08 13:58 | XMS_ITS | Encounter Summary ---
Author Organization [employer] ([place], [place], [place], [place]) Address [address] [place] [address] Care Team Providers Care Green Chain Worker Name Role Phone Unavailable Primary Care Provider Unavailabl e Encounter Details Date Type Department Care Team (Late st Contact Info) Description 08/14/2021 Transcribed Document [facility] [place] Medicine [address] [place] [address] ProviderMaxine MD [address] [place] [address] Social History Tobacco Use Types [...] Conversion Note - Historical ProviderMD - 08/14/2021 2:42 PM LIME SUPERVISOR Initial Discharge Planning Entered On: 08/14/2021 14:46 EST Performed On: 08/14/2021 14:42 EST by CHA HENNESSY RN-Clinical Faculty Initial Assessment I Previously Documented Living Environment : No qualifying data available. Living Situation : Home Patient Lives With : Significant other(s) Is the Patient a Caregiver at Home? : No Emergency Contact #1 : Joleen Romo Emergency Contact #1 cell Emergency Contact #1 Relationship : daughter Emergency Contact #2 : Radhika Miles Emergency Contact #2 cell Emergency Contact #2 Relationship : daughter Enter Doctors Name : NERI RODRIGUEZ (REF)MD-[facility] Does Patient have PCP Listed? : Yes CHA HENNESSY RN-Clinical Faculty - 08/14/2021 14:42 EST Initial Assessment II Sensory and Motor Deficits : None Current Home Treatments and Equipment : None Does the Patient have a Floor to SNF Benefit? : No CHA HENNESSY RN-Clinical Faculty - 08/14/2021 14:42 EST Discharge Needs I Anticipated Discharge Date : 08/14/2021 EST Anticipated Discharge To, CM : Home with home health Current Home Treatment/Equipment : Current Home Treatment/Equipment No qualifying data available. Post Acute/Home Treatments : Bedside commode, Walker Documentation Status Complete : Yes CHA HENNESSY RN-Clinical Faculty - 08/14/2021 14:42 EST Discharge Needs II Professional Skilled Services : Professional Skilled Services No qualifying data available. Needs Assistance with Transportation : No Discharge Options Discussed with Patient : DME, Home Health Patient Discharge Goal : Home health care CHA HENNESSY RN-Clinical Faculty - 08/14/2021 14:42 EST Narrative Note Narrative Note : 50yo female pt s/p L3-iliac bolts PLIF and lami. PT cleared pt for home with HH. Met with pt at bedside to discuss DCP. Pt lives with her SO. She denies use of DME/HH/rehab stays. She needs a FRW and BSC and has no DME provider preference. Obtained them from [facility] and they have been delivered. Pt agrees to for PT and has no SUPERVISOR WELDING EQUIPMENT REPAIRER prefrence. Referral sent to [facility] via [facility] and confirmed acceptance with Giulia. No other CM needs noted. CHA HENNESSY RN-Clinical Faculty - 08/14/2021 14:42 EST Electronically signed by Loan Guerrero Conversion Wafer Abrading Machine Tender Cerner at 12/28/2022 8:06 PM CDT documented in this encounter Plan of Treatment Not on file documented as of this encounter Visit Diagnoses Not on filedocumented in this encounter
--- OUTSIDE RECORDS SUMMARY | 2025-04-08 13:58 | XMS_ITS | Encounter Summary ---
Author Organization [employer] ([place], [place], [place], [place]) Address [address] [place] [address] Care Team Providers Care Grain Mill Products Inspector Name Role Phone Unavailable Primary Care Provider Unavailabl e Encounter Details Date Type Department Care Team (Late st Contact Info) Description 08/14/2021 Transcribed Document [facility] [place] [facility] [place] [address] ProviderMaxine MD [facility] [place] [address] Social History Tobacco Use Types [...] Conversion Note - Historical ProviderMD - 08/14/2021 8:45 AM DRAFT ROLLER PICKER Discharge Instructions Entered On: 08/14/2021 8:45 EST Performed On: 08/14/2021 8:45 EST by ANAT TIAN PA DC Instructions HWD Stroke/TIA Discharge Ins : N/A Heart Failure Discharge Ins : N/A Warfarin Discharge Ins : N/A Diet After Discharge : Resume usual diet as tolerated Activity After Discharge : No heavy lifting over 10 pounds Driving After Discharge : Do not drive Showering/Bathing : May shower, No tub bathing, soaking, or swimming Wound/Incision Care After Discharge : Keep operative site/wound site clean and dry, Change dressing with dry dressing daily and as needed ANAT TIAN PA - 08/14/2021 8:45 EST Electronically signed by Yolanda [facility] Conversion Behavioral Analyst Cerner at 12/28/2022 8:05 PM CDT documented in this encounter Plan of Treatment Not on file documented as of this encounter Visit Diagnoses Not on filedocumented in this encounter
--- OUTSIDE RECORDS SUMMARY | 2025-04-08 13:58 | XMS_ITS | Encounter Summary ---
Author Organization [facility] ([place], [place], [place], [place]) Address [address] [place] [address] Care Team Providers Care Manager Client Service Name Role Phone Unavailable Primary Care Provider Unavailabl e Encounter Details Date Type Department Care Team (Late st Contact Info) Description 08/14/2021 Transcribed Document [facility] [place] Family Medicine [address] [place] [address] ProviderMaxine MD [address] [place] [address] Social History Tobacco Use Types [...] - Historical ProviderMD - 08/14/2021 8:45 AM PRINTER TECHNICIAN Nursing Discharge Summary Entered On: 08/14/2021 8:45 EST Performed On: 08/14/2021 8:45 EST by ANAT TIAN PA Discharge Documentation Patient Disposition, General : Discharge Discharge To : Home with ambulatory/outpatient follow-up ANAT TIAN PA - 08/14/2021 8:45 EST Electronically signed by Yolanda [facility] Conversion Talent Development Specialist Cerner at 12/28/2022 7:49 PM CDT documented in this encounter Plan of Treatment Not on file documented as of this encounter Visit Diagnoses Not on filedocumented in this encounter
--- OUTSIDE RECORDS SUMMARY | 2025-04-08 13:58 | XMS_ITS | Encounter Summary ---
Author Organization [employer] ([place], [place], [place], [place]) Address [address] [place] [address] Care Team Providers Care Microsoft Solutions Architect Name Role Phone Unavailable Primary Care Provider Unavailabl e Encounter Details Date Type Department Care Team (Late st Contact Info) Description 08/13/2021 Transcribed Document [facility] [place] [address] [place] [address] ProviderMaxine MD [address] [place] [address] Social History Tobacco Use Types Packs/Day Years Used Date Smoking Tobacco: Never Assessed Comments Unknown Sex and Gender Information Value Date Recorded Sex Assigned at Unknown 03/06/2022 8:57 PM CDT Legal Sex Female 8:57 PM CDT Gender Identity Not on file Sexual Orientation Not on file documented as of this encounter Miscellaneous Notes * Cerner Conversion Note - Historical ProviderMD - 08/13/2021 5:00 PM MARKETING INSTRUCTOR Chart Check - Review Order Profile Entered On: 08/13/2021 16:59 EST Performed On: 08/13/2021 17:00 EST by ELPIDIO GARCIA RN Chart Check Powerplans Initiated/Discontinued as Appropriate : Not applicable All Active Orders Reviewed : Yes ELPIDIO GARCIA RN - 08/13/2021 16:59 EST Electronically signed by Yolanda [facility] Conversion Alteration Worker Cerinder at 12/28/2022 8:05 PM CDT documented in this encounter Plan of Treatment Not on file documented as of this encounter Visit Diagnoses Not on filedocumented in this encounter
--- OUTSIDE RECORDS SUMMARY | 2025-04-08 13:58 | XMS_ITS | Clinical Summary ---
Author Organization [facility] Address [address] [place] [address] Care Team Providers Care Cdl Program Coordinator Name Role Phone Giovanny Fernando MD Primary Care Provider + [phone] Allergies No known active allergies Medications cyanocobalamin (Vitamin B-12) 1000 MCG/ML injection 1 mL (1,000 mcg) every 30 (thirty) days. 1 Active pantoprazole (Protonix) 40 MG EC tablet Take 1 tablet (40 mg) by mouth 2 (two) times a day. 1 Active venlafaxine XR (Effoxor-XR) 150 MG 24 hr capsule Take 1 capsule (150 mg) by mouth every night. 1 Active GNP Vitamin D3 Extra Strength 25 MCG (1000 UT) tablet Take by mouth 1 (one) time each day. 2 Active montelukast (Singulair) 10 MG tablet Take 1 tablet (10 mg) by mouth 1 (one) time each day. 2 Active cetirizine (ZyrTEC) 10 MG tablet Take 1 tablet (10 mg) by mouth 1 (one) time each day in the morning. Active losartan (Cozaar) 100 MG tablet Take 1 tablet (100 mg) by mouth 1 (one) time each day. 3 Active gabapentin (Neurontin) 100 MG capsule Take 1 capsule (100 mg total) by mouth 3 (three) times a day. If this medication makes you drowsy you may take it only at bedtime 30 capsule 3 Active Additional Information Patient not taking.Reported on 07/18/2023 acetaminophen (Tylenol Extra Strength) 500 MG tablet Take 2 tablets (1,000 mg total) by mouth every 8 (eight) hours. 100 tablet 3 Active Additional Information Patient taking differently:1,000 mg OralAs needed, Reported on 03/23/2024 propranolol (Inderal) 20 MG tablet 1/2 tablet twice bid x first week then one bid 3 Active budesonide-form oterol (Symbicort) 160-4.5 MCG/ACT inhaler Inhale 2 puffs 2 (two) times a day. Rinse mouth with water after use to reduce aftertaste and incidence of candidiasis. Do not swallow. Active famotidine (Pepcid) 40 MG tablet Take 1 tablet (40 mg) by mouth 2 (two) times a day. Active levocetirizine (Xyzal) 5 MG tablet Take 2 tablets (10 mg) by mouth 1 (one) time each day in the evening. Active rosuvastatin (Crestor) 40 MG tablet Take 1 tablet (40 mg) by mouth 1 (one) time each day. Active varenicline (Chantix) 1 MG tablet Take 1 tablet (1 mg) by mouth 2 (two) times a day. Active gabapentin (Neurontin) 300 MG capsule Take 1 capsule (300 mg) by mouth every night. Active propranolol (Inderal) 10 MG tablet Take 1 tablet (10 mg) by mouth 2 (two) times a day. Active HYDROcodone-tamy taminophen ([place]) 5-325 MG tablet 3 Active levocetirizine (Xyzal) 5 MG tablet Active spironolactone (Aldactone) 25 MG tablet 3 Active magnesium oxide (Mag-Ox) 400 MG tablet 3 Active albuterol 108 (90 Base) MCG/ACT inhaler Inhale 2 puffs. 3 Active Mounjaro 5 MG/0.5ML solution pen-injector solution pen-injector Inject 0.5 mL (5 mg) under the skin 1 (one) time per week. 4 Active B-D 3CC LUER-CAROLINE SYR 25GX1 25G X 1 3 ML misc Inject 3 mL under the skin 1 (one) time per week. 4 Active cyclobenzaprine (Flexeril) 10 MG tablet Take 1 tablet (10 mg) by mouth if needed for muscle spasms. 4 Active Active Problems Problem Noted Date Diagnosed Date PFO (patent foramen ovale) 03/23/2024 Cerebrovascular accident (CVA) 06/03/2023 Osteoarthritis of left hip, unspecified osteoart hritis type 11/14/2022 Obesity (BMI 35.0-39.9 without comorbidity) 04/2023 Primary osteoarthritis of one hip, left 07/10/20 22 Overview (07/10/2022): Added automatically from request for surgery [id number] Right hip pain 04/25/2022 Primary osteoarthritis of one hip, right 022 Overview (04/10/2022): Added automatically from request for surgery [id number] Immunizations Immunization Administration Dates Next Due DTaP, 5 pertussis antigens 06/23/2017 Hep A, Adult 07/01/2019 Influenza, injectable, quadrivalent 06/09/2018,1 Influenza, injectable, quadrivalent, preservativ e free 10/23/2023 Influenza, recombinant, quad rivalent, injectable, preservative free 06/11/2022,05/31/2021 Social History Tobacco Use Types Packs/Day Years Used Date Smoking Tobacco: Never Smokeless Tobacco: Never Tobacco Cessation:Counseling Given: Not Answered Alcohol Use Standard Drinks/Week Comments Never 0 (1 standard drink = 0.6 oz pur e alcohol) PHQ-2 Answer Date Recorded Patient Health Questionnaire-2 Score 0 03/23/2024 CAGE ASSESSMENT Answer Date Recorded Cage unable to access Not on file 11/15/2022 Cage max number of drinks Not on file 2022 Cage Beverages a week Not on file 11/15/2022 Have you ever felt you should CUT down on your d rinking? 0 11/15/2022 Have you been ANNOYED by people criticizing your drinking? 0 11/15/2022 Have you felt GUILTY about your drinking? 0 11/15/2022 Have you had a drink first t zafar in the morning (EYE-SLACKMAN) to steady your nerves or to get rid of a hangover? 0 11/15/2022 CAGE Questionnaire Score 0 023 Comments No Sex and Gender Information Value Date Recorded Sex Assigned at Not on file Legal Sex Female 8:57 PM EDT Gender Identity Not on file Sexual Orientation Not on file Last Filed Vital Signs Vital Sign Reading Time Taken Comments Blood Pressure 114/80 03/23/2024 2:29 PM EDT Pulse 99 03/23/2024 2:29 PM EDT Temperature 36.4 C (97.6 F) 06/03/2023 3:24 PM EDT Respiratory Rate 18 06/03/2023 3:24 PM EDT Oxygen Saturation 99% 03/23/2024 2:29 PM EDT Inhaled Oxygen Concentration - - Weight 106 kg (233 lb 0.4 oz) 03/23/2024 2:29 PM EDT Height 170.2 cm (5' 7 ) 03/23/2024 2:29 PM EDT Body Mass Index 36.5 03/23/2024 2:29 PM EDT Plan of Treatment Health Maintenance Due Date Last Done Comments [facility]-HIV Screening 1970 [facility]-Hepatitis C Screening 1970 [facility]-Infant/Child/Adol SDOH Screenings 1970 [facility]- SDOH Screenings 1989 [facility]-Adult SDOH Screenings 1989 [facility]-Hepatitis B Vaccines (1 of 3 - 19+ 3-dose series) 1990 CT Colonography 2016 Colonoscopy 2016 FIT-DNA 2016 FIT 2016 FOBT 2016 Sigmoidoscopy 2016 [facility]-Colorectal Cancer Screening 2016 [facility]-Breast Cancer Screening 2021 [facility]-Zoster Vaccines (1 of 2) 2021 AXI-DTWXG-04 Vaccine ( season) 2024 06/29/2022, 12/16/2020, 11/18/2020 [facility]-Depression Screening 03/23/2025 03/23/2024 [facility]-Influenza Vaccine (#1) 05/10/202510/23, 06/11/2022, 05/31/2021, Additional history exists [facility]-DTaP,Tdap,and Td Vaccines (2 - Tdap) 06/23/2027 06/23/2017 [facility]-Hepatitis A Vaccines Aged Out 07/01/2019 No longer eligible based on patient's age to complete this topic [facility]-Diabetes: Hemoglobin A1C Discontinued 06/03/2023, 01/29/2023, 11/15/2022 [facility]-Pneumococcal Vaccine: 50+ Years Completed 10/23/2023 [facility]-Obesity Intervention Completed 024, 08/16/2023, 07/18/2023, Additional history exists HPV Vaccines Aged Out No longer eligi ble based on patient's age to complete this topic [facility]-HIB Vaccines Aged Out No longer e ligible based on patient's age to complete this topic [facility]-IPV Vaccines Aged Out No longer e ligible based on patient's age to complete this topic [facility]-Rotavirus Vaccines Aged Out No lo nger eligible based on patient's age to complete this topic Medical Devices Implanted Type Area Track Machine Operator Repairer Device Identifier Shelf Expiration Date Model / Serial / Lot Chg Shell R3 3 Hole Acet 50mm - [id number] Implanted:Qty: 1 on 11/14/2022 by Mello Pina MD at [facility] Hip Left: Hip [employer]-[id number] 07/29/2032 [id number] / / [id number] Chg Head Oxinium Fem 08/22 36 - [id number] Implanted:Qty: 1 on 11/14/2022 by Mello Pina MD at [facility] Hip Left: Hip [employer]-[id number] 08/10/2032 [id number] / / [id number] Liner R3 Xlpe 20deg 36mm X 50mm - [id number] Implanted:Qty: 1 on 11/14/2022 by Mello Pina MD at [facility] Liner Left: Hip [employer]-[id number] 04/20/2032 [id number] / / [id number] Chg Screw Ref Spher Head 40mm - [id number] Implanted:Qty: 1 on 11/14/2022 by Mello Pina MD at [facility] Screw Left: Hip [employer]-[id number] 05/09/2032 [id number] / / [id number] Chg Stem Anthology Ho Por Pl H - [id number] Implanted:Qty: 1 on 11/14/2022 by Mello Pina MD at [facility] Stem Left: Hip [employer]-[id number] 02/05/2032 [id number] / / [id number] Shell Trident Ii Cluster 48mm - [id number] Implanted:Qty: 1 on 04/25/2022 by Mello Pina MD at [facility] Right: Hip [employer] ([facility])-[id number] 02/20/2027 [id number] / / [id number] Insert X3 Mdm Restor 38 Mm Od 22 Mm Id X 7.7 Mm - [id number] Implanted:Qty: 1 on 04/25/2022 by Mello Pina MD at [facility] Right: Hip [employer] ([facility])-[id number] 11/01/2026 [id number] / / [id number] Screw 6.5mm Trident Low Profile Hex 25mm - [id number] Implanted:Qty: 1 on 04/25/2022 by Mello Pina MD at [facility] Right: Hip [employer] ([facility])-[id number] 03/26/2027 [id number] / / [id number] Liner Mdm Cocr Liner 38mm D - [id number] Implanted:Qty: 1 on 04/25/2022 by Mello Pina MD at [facility] Right: Hip [facility] [facility] ([facility])-[id number] 68 02/12/2027 [id number] / / [id number] Hip Size 4 Accolade Ii 127 Deg - [id number] Implanted:Qty: 1 on 04/25/2022 by Mello Pina MD at [facility] Right: Hip [employer] ([facility])-[id number] 68 01/20/2027 [id number] / / [id number] Chg Head 22.2mm + 3 Lfit V40 - [id number] Implanted:Qty: 1 on 04/25/2022 by Mello Pina MD at [facility] Right: Hip [facility] [facility] ([employer])-[id number] 68 03/11/2027 [id number] / / [id number] Procedures Procedure Name Priority Date/Time Associated Diagnosis Comments HEMOGLOBIN A1C Add-On 06/03/2023 5:24 AM EDT from Last 3 Months or Most Recently Relevant to Health Maintenance Results * (ABNORMAL) Hemoglobin A1c (06/03/2023 5:24 AM EDT) Hemoglobin A1c 6.6(H) <5.7 % 06/03/2023 4:08 PM EDT [facility] Blood Venous blood specimen / Unknown Venipuncture / Unknown 06/03/2023 5:24 AM EDT 06/03/2023 5:30 AM EDT Narrative [facility] - 06/03/2023 4:08 PM EDT HA1C Interpretive Data: Diagnosis of Diabetes: Diabetic > or = 6.5% Pre-diabetic 5.7 to 6.4% Non-diabetic < or = 5.6% Glycemic Targets for Type I and Type II Diabetics: Non- Adults <7.0% Adults <6.0% Children and Adolescents <7.5% Source: [place] [employer]. Standards of medical care in diabetes,2017. Diabetes Care.2017:40 (suppl 1):S1-S135. HbA1c assay performed by an ion-exchange chromatography method that is certified traceable to the DCCT. us Braeden Cruz MD LAB BLOOD ORDERABLES Final R esult [facility] [address] [place] [address] from Last 3 Months or Most Recently Relevant to Health Maintenance Insurance [employer] Advance Directives * Full Code (Latest Code Status on File) Date Activated Date Inactivated Comments 11/14/2022 6:54 AM 11/15/2022 9:04 PM Question Answer Comments Patient has decision-making capacity? Yes * Full Code Date Activated Date Inactivated Comments 04/25/2022 9:09 AM 04/26/2022 5:49 PM Question Answer Comments Patient has decision-making capacity? Yes Care Teams Cdl Program Coordinator Relationship Specialty Start Date End Date Giovanny Fernando MD [address] [place] [address] PCP - General Internal Medicine 04/10/22
--- OUTSIDE RECORDS SUMMARY | 2025-04-08 13:58 | XMS_ITS | Encounter Summary ---
Author Organization [facility] ([place], [place], [place], [place]) Address [address] [place] [address] Care Team Providers Care Peanut Vendor Name Role Phone Unavailable Primary Care Provider Unavailabl e Encounter Details Date Type Department Care Team (Late st Contact Info) Description 08/11/2021 Transcribed Document [facility] Neurology - [address] [facility] [address] [place] [address] Edwin Delgado MD [address] [place] [address] Social History Tobacco Use Types [...] Note - Edwin Delgado MD - 08/11/2021 7:30 AM EST Patient: SERA MATTHEWS Age: 50 years Sex: Female : 1970 Associated Diagnoses: None Author: COMERNIELS APRN Chief Complaint pleasant 50 yo female here with her daughter for L3-S1 PLIF possible iliac bolts with Dr. Delgado. pt has had back pain for 5 years, gotten worse and failed conservative measures. Review of Systems Constitutional: Negative. Eye: Negative. Ear/Nose/Mouth/Throat: Negative. Respiratory: Negative. Cardiovascular: Negative. Gastrointestinal: Negative. Genitourinary: Negative. Hematology/Lymphatics: Negative. Endocrine: Negative. Immunologic: Negative. Musculoskeletal: Back pain: Bilaterally, Radiating, harini LE . Integumentary: Negative. Neurologic: Negative. Psychiatric: Negative. All other systems are negative Health Status Allergies: Allergic Reactions (Selected) No Known Medication Allergies, Allergies (1) Active Reaction No Known Medication Allergies None Documented Current medications: (Selected) Inpatient Medications Ordered Ancef: 2 Gram, 100 mL, 200 mL/Hr, IV Piggyback, PREOP Lactated Ringers Injection intravenous solution 1,000 mL: 20 mL/Hr, IntraVENous Documented Medications Documented Tylenol: 1,500 mg, Oral, BID, PRN: as needed for pain, 0 Refill(s) Vitamin B12: IntraMuscular, [id number], 0 Refill(s) buPROPion: 300 mg, Oral, Daily, 0 Refill(s) pantoprazole: 40 mg, Oral, BID, 0 Refill(s) venlafaxine: 150 mg, Oral, Daily, 0 Refill(s), Home Medications (5) Active buPROPion 300 mg, Oral, Daily pantoprazole 40 mg, Oral, BID Tylenol 1,500 mg, PRN, Oral, BID venlafaxine 150 mg, Oral, Daily Vitamin B12 , IntraMuscular, [id number] , Medications (2) Active Scheduled: (1) ceFAZolin 2 Gram 100 mL, IV Piggyback, PREOP Continuous: (1) lactated ringers 1,000 mL 1,000 mL, IntraVENous, 20 mL/Hr PRN: (0) Problem list: All Problems History of obstructive sleep apnea / IMO [id number] / Confirmed uses cpap GERD (gastroesophageal reflux disease) / SNOMED CT 812984855 / Confirmed Constipation / SNOMED CT 07580034 / Confirmed lower back pain to both hips and BLE to feet, right hand numbness / SNOMED CT 246899112 / Confirmed, Active Problems (4) Constipation GERD (gastroesophageal reflux disease) History of obstructive sleep apnea lower back pain to both hips and BLE to feet, right hand numbness Histories Past Medical History: No active or resolved past medical history items have been selected or recorded. Family History: No family history items have been selected or recorded. Procedure history: hemorrhoidectomy 06/2021. partial hysterectomy. left foot surgery w/ screw placement. tonsillectomy. Social History Social & Psychosocial Habits Alcohol 08/08/2021 Alcohol Use History, Social Habits No Substance Abuse 08/08/2021 Recreational Drug Use History No Recreational Drug Use Last 12 Months No Tobacco 08/08/2021 Smoking Status Former smoker, quit more Smokeless Tobacco Status Never Years of Tobacco Use 10 Packs/Tins Daily 1.5 Month Tobacco Last Used Quit 2018 . Physical Examination VS/Measurements Vital Signs/Vital Measures 08/11/2021 7:00 EST Blood Pressure Location Arm, left upper Blood Pressure Source Non-Invasive BP Device Blood Pressure Position Sitting Systolic Blood Pressure 146 mmHg HI Diastolic Blood Pressure 88 mmHg Mean Arterial Pressure (MAP)-BMDI 108 Temperature Source Temporal artery scanning Temperature Mode Fahrenheit Temperature, Fahrenheit 97.1 Deg F Heart Rate Monitored 70 bpm Respiratory Rate 18 Breaths/Min Oxygen Saturation 97 % Oxygen Therapy Mode Room air , Vitals Signs (last 24 hrs) Last Charted Minimum Maximum Temp 97.1 (AUG 11:) 97.1 (AUG 11:) 97.1 (AUG 11:) Mon HR 70 (AUG 11 07:) 70 (AUG 11 07:) 70 (AUG 11 07:) Resp Rate 18 (AUG 11:00) 18 (AUG 11:00) 18 (AUG 11:) SBP H 146 (AUG 11 07:00) H 146 (AUG 11 07:00) H 146 (AUG 11:) DBP 88 (AUG 11:00) 88 (AUG 11:00) 88 (AUG 11:) MAP 108 (AUG 11:) 108 (AUG 11:) 108 (AUG 11:) SpO2 97 (AUG 11:) 97 (AUG 11:) 97 (AUG 11:) General: Alert and oriented, No acute distress, obese. Eye: Extraocular movements are intact, glasses. HENT: Normocephalic, Normal hearing. Neck: Supple, Non-tender. Respiratory: Lungs are clear to auscultation, Respirations are non-labored. Cardiovascular: Normal rate, Regular rhythm, No murmur, No gallop, No edema. Musculoskeletal: painful ROM back, harini LE radiculopathy. Integumentary: Warm, Dry, [place]. Neurologic: Alert, Oriented. Psychiatric: Cooperative, Appropriate mood & affect. Review / Management Results review: Labs (Last four charted values) WBC H 10.6 (AUG 09) HB 13.1 (AUG 09) HCT 40.3 (AUG 09) Plt 350 (AUG 09) Na 139 (AUG 09) K 4.1 (AUG 09) Cl 106 (AUG 09) CO2 26 (AUG 09) BUN 16 (AUG 09) Cr 0.70 (AUG 09) Glu R 96 (AUG 09) Ca 9.3 (AUG 09) . Impression and Plan Diagnosis 1. back pain with harini LE radiculopathy 2. constipation 3. GERD 4. REINA. Condition: Stable. pt to proceed with surgery, plan to stay 2 nights documented in this encounter Plan of Treatment Not on file documented as of this encounter Visit Diagnoses Not on filedocumented in this encounter
--- OUTSIDE RECORDS SUMMARY | 2025-04-08 13:58 | XMS_ITS | Encounter Summary ---
Author Organization [facility] ([place], [place], [place], [place]) Address [address] [place] [address] Care Team Providers Care Office Aide Name Role Phone Unavailable Primary Care Provider Unavailabl e Encounter Details Date Type Department Care Team (Late st Contact Info) Description 08/14/2021 Transcribed Document [facility] [place] [facility] [address] [place] [address] ProviderMaxine MD [address] [place] [address] Social History Tobacco Use Types [...] Conversion Note - Historical ProviderMD - 08/14/2021 2:48 PM BOARD LINER OPERATOR Stroke/Warfarin Instructions Entered On: 08/14/2021 14:49 EST Performed On: 08/14/2021 14:48 EST by NANCY BELL RN Stroke/Warfarin Instructions Stroke/TIA Discharge Ins : N/A Warfarin Discharge Ins : N/A NANCY BELL RN - 08/14/2021 14:48 EST Electronically signed by Yolanda [facility] Conversion Cook Italian Style Food Cerner at 12/28/2022 7:42 PM CDT documented in this encounter Plan of Treatment Not on file documented as of this encounter Visit Diagnoses Not on filedocumented in this encounter
--- OUTSIDE RECORDS SUMMARY | 2025-04-08 13:58 | XMS_ITS | Encounter Summary ---
Author Organization [employer] ([place], [place], [place], [place]) Address [address] [place] [address] Care Team Providers Care Filter Plant Supervisor Name Role Phone Unavailable Primary Care Provider Unavailabl e Encounter Details Date Type Department Care Team (Late st Contact Info) Description 08/14/[address] [facility] [place] Medicine [address] [place] [address] ProviderMaxine MD [address] [place] [address] Social History Tobacco Use Types [...] Conversion Note - Historical ProviderMD - 08/14/2021 11:16 AM EMERY WHEEL WORKER Meds to Bed Enrollment Entered On: 08/14/2021 11:16 EST Performed On: 08/14/2021 11:16 EST by KAVIN BEDOYA PHARMACIST-MEDICATION RECON Meds to Bed Enrollment Patient Enrollment Decision: : Yes/enroll in meds to bed program KAVIN BEDOYA PHARMACIST-MEDICATION RECON - 08/14/2021 11:16 EST documented in this encounter Plan of Treatment Not on file documented as of this encounter Visit Diagnoses Not on filedocumented in this encounter
--- OUTSIDE RECORDS SUMMARY | 2025-04-08 13:58 | XMS_ITS | Encounter Summary ---
Author Organization [facility] ([place], [place], [place], [place]) Address [address] [place] [address] Care Team Providers Care Clinical Science Liaison Name Role Phone Unavailable Primary Care Provider Unavailabl e Encounter Details Date Type Department Care Team (Late st Contact Info) Description 08/08/2021 Transcribed Document [facility] [place] [address] ProviderMaxine MD [address] [place] [address] Social History Tobacco Use Types Packs/Day Years Used Date Smoking Tobacco: Never Assessed Comments Unknown Sex and Gender Information Value Date Recorded Sex Assigned at Unknown 03/06/2022 8:57 PM CDT Legal Sex Female 8:57 PM CDT Gender Identity Not on file Sexual Orientation Not on file documented as of this encounter Miscellaneous Notes * Cerner Conversion Note - Historical ProviderMD - 08/08/2021 2:24 PM PHOTO TECH PAT Adult Entered On: 08/08/2021 14:35 EST Performed On: 08/08/2021 14:24 EST by JERI LARA RN Vital Measurements Temperature Source : Temporal artery scanning Temperature Mode : Fahrenheit Temperature, Fahrenheit : 96.7 Deg F (LOW) Clinical Temperature, C : 35.9 Deg C Pulse Method : Pulse Oximetry Peripheral Pulse Rate : 72 bpm Blood Pressure Location : Arm, right upper Blood Pressure Source : Non-Invasive BP Device Blood Pressure Position : Sitting Systolic Blood Pressure : 136 mmHg Diastolic Blood Pressure : 85 mmHg Oxygen Saturation : 99 % Oxygen Therapy Mode : Room air SERA ZIMMERMAN RN - 08/09/2021 11:42 EST Height and Weight, Clinical Dosing Height Source : Measured Height Entry Format : [place] Height, Feet : 0 ft(Converted to: 0 cm, 0 Inch) Height, Inches : 66.25 Inch(Converted to: 5 ft 6 Inch, 168.27 cm) Clinical Height : 168.28 cm Weight Source : Standing scale Weight Entry Format : [place] Clinical Dosing Weight : 93.69 kg Weight, Pounds : 206 lb Weight, Ounces : 2 oz Body Surface Area (BSA) : 2.03 m2 Body Mass Index : 33.1 kg/m2 (HI) [place] Body Weight : 59 kg SERA ZIMMERMAN RN - 08/09/2021 11:27 EST Health Histories Smoking Status : Former smoker, quit more than 30 days ago Smokeless Tobacco Status : Never Implant/Device Type, Leasing Property Manager and Model : left foot screw, dental implants JERI LARA RN - 08/08/2021 14:24 EST Social History (As Of: 08/11/2021 07:01:30 EST) Tobacco: Former smoker, quit more than 30 days ago Smoking Status. Never Smokeless Tobacco Status. Years of Use: 10. Packs/Tins Daily: 1.5. Last Used: Quit 2018. (Last Updated: 08/08/2021 14:25:42 EST by JERI LARA RN) Alcohol: Alcohol Use History No. (Last Updated: 08/08/2021 14:25:47 EST by JERI LARA RN) Substance Abuse: Drug Use Hx: No. Use in Last 12 Months: No. (Last Updated: 08/08/2021 14:25:55 EST by JERI LARA RN) Infectious Disease History Does patient have symptoms of COVID-19? : No Has the Patient Been Tested for COVID-19 in the last 14 days? : Yes, Patient stated results Negative Where and When was COVID19 testing completed? : [facility] Does the Patient state known exposure to a COVID-19 positive case in the last 14 days? : No Does Patient want a COVID-19 Vaccine? : No Ally Davies RN - 08/11/2021 7:00 EST Infectious Disease Risk Screening Grid Cough < 2 wks of unknown origin : NO Cough > 2 weeks : NO Blood in Sputum : NO Fever or self-reported Fever : NO Rash of unknown origin : NO Headache : NO Stiff neck : NO Night Sweats : NO Unexplained Weight Loss : NO Diarrhea (3 episode per day) : NO Ally Davies RN - 08/11/2021 7:00 EST INF Disease TB Screening Calc : 0 Ally Davies RN - 08/11/2021 7:00 EST Patient Vaccinated for COVID-19 : Partially vaccinated or need booster Physical contact outside [place] in the last 30 days : No Hospitalized in Foreign Country : No Infectious Disease History : Chicken pox/Shingles, Measles, Mononucleosis INF Disease Recent Travel Calc : 0 JERI LARA RN - 08/08/2021 14:24 EST COVID19 PreProcedure Screening Date PreProcedure COVID-19 test known? : Yes Date of PreProcedure COVID-19 : 08/09/2021 EST Has patient been isolated since the test : No Exposed to COVID19 symptoms since test? : No Ally Davies RN - 08/11/2021 7:00 EST Is this an Emergent or Add on Procedure? : No JERI LARA RN - 08/08/2021 14:24 EST Anesthesia/Transfusion History Family History of Anesthesia Reaction : No prior transfusion(s) Transfusion History : Prior anesthesia without reaction Family History of Anesthesia Reaction : Malignant hyperthermia, family history JERI LARA RN - 08/08/2021 14:24 EST Functional Assessment Functional ADL Evaluation Index EBN Bathing : Independent (2) Dressing : Independent (2) Toileting : Independent (2) Transferring Bed or Chair : Independent (2) Continence : Independent (2) Feeding : Independent (2) JERI LARA RN - 08/08/2021 14:24 EST ADL Index Score : 12 JERI LARA RN - 08/08/2021 14:24 EST Advance Directive Patient has Advance Directive *Q : No, patient refuses Advance Directive information JERI LARA RN - 08/08/2021 14:24 EST Spiritual/Cultural Needs Any Spiritual/Cultural Needs or Requests : Yes Spiritual/Cultural Needs Comment : prayer on DOS 08/11/2021 Spiritual/Cultural Needs Comment : prayer on DOS 08/11/2021 JERI LARA RN - 08/08/2021 14:24 EST [place] Suicide Severity Rating Scale (C-SSRS) CSSRS Past Month Wish to be : No CSSRS Past Month Suicidal Thoughts : No CSSRS Lifetime Suicide Behavior : No Suicide Severity Rating Score : 0 Suicide Severity Rating : No Additional Care Required at this time JERI LARA RN - 08/08/2021 14:24 EST Psychosocial History Do You Have a History of the Following? : Depression Currently in Unsafe Situation : JERI Mclaughlin RN - 08/08/2021 14:24 EST Teaching/Learning Assessment Barriers To Learning : None evident Individuals Taught : Patient Readiness to Learn : Cooperative SERA ZIMMERMAN RN - 08/09/2021 11:42 EST Education Topics, Periop Preadmission Perioperative Education Grid Arrival Time/Place : Verbalizes understanding CHG Preoperative Bathing/Cloths : Verbalizes understanding Infection Control : Verbalizes understanding NPO Status/Directions : Verbalizes understanding Preprocedure Preparations : Verbalizes understanding Preprocedure Tests/Labs : Verbalizes understanding Remove Body Piercings : Verbalizes understanding Responsible Adult : Verbalizes understanding Take/Hold Medications Pre-Procedure : Verbalizes understanding Other : Verbalizes understanding (Comment: Bactroban [SERA ZIMMERMAN RN - 08/09/2021 11:42 EST] ) General Info Preferred Name : Sera Rios Family/Rep/Phys Notified of Admit : No Emergency Contact #1 : Joleen Romo Emergency Contact #1 cell Emergency Contact #1 Relationship : daughter Emergency Contact #2 : Radhika Miles Emergency Contact #2 cell Emergency Contact #2 Relationship : daughter Chief Complaint : back pain, seeing pain management, onset of low back pain to each hip and BLE; now with Right arm numbness Information Obtained From : Patient Primary Language : Hungarian Communication Barrier : None Fish Processor Needed : JERI Mclaughlin RN - 08/08/2021 14:24 EST Jonnathan Scale Jonnathan Sensory Perception : Slightly limited Jonnathan Moisture : Rarely moist Jonnathan Activity : Walks frequently Jonnathan Mobility : Slightly limited Jonnathan Nutrition : Adequate Jonnathan Friction and Shear : No apparent problem Jonnathan Score : 20 JERI LARA RN - 08/08/2021 14:24 EST Sleep Apnea Risk Assmt BiPAP/CPAP Ordered for Home Use : Yes Hx of Obstructive Sleep Apnea Diagnosis : Yes BiPAP/CPAP Used at Home : Yes Age over 50 Years Old : No Gender Male : No Sleep Apnea Risk Comment : states uses most of the time JERI LARA RN - 08/08/2021 14:24 EST documented in this encounter Plan of Treatment Not on file documented as of this encounter Visit Diagnoses Not on filedocumented in this encounter
--- OUTSIDE RECORDS SUMMARY | 2025-04-08 13:58 | XMS_ITS | Encounter Summary ---
Author Organization [employer] ([place], [place], [place], [place]) Address [address] [place] [address] Care Team Providers Care Retail Service Specialist Name Role Phone Unavailable Primary Care Provider Unavailabl e Encounter Details Date Type Department Care Team (Late st Contact Info) Description 08/11/2021 Transcribed Document [facility] [place] [facility] [place] [address] ProviderMaxine MD [address] [place] [address] Social History Tobacco Use Types [...] Conversion Note - Historical ProviderMD - 08/11/2021 12:13 PM LOG MARKER Evaluation, Occupational Therapy Entered On: 08/12/2021 12:47 EST Performed On: 08/12/2021 11:02 EST by RAJENDRA HARRIS OTR/Mar General Information, OT Visit Type, OT : Initial evaluation Patient Orders : Order Date Order Ordering 08/11/2021 12:13 Occupational Therapy Evaluation and Treatme Ordered By: CARLOS DAMON MD-SN Active Diagnoses : 08/11/2021 12:00 Other spondylosis with myelopathy, lumbar region Therapy Diagnosis, OT : decreased fxl status due to pain, decreased activity tolerance Onset of Problem, OT : 08/11/2021 EST Admission Date : 08/11/2021 06:40 Co-treated by, OT : Physical Therapist Personal Devices : Personal Devices No Devices Recorded Assistive Devices : Assistive Devices No Devices Recorded Precautions in Place : Fall prevention measures, Log roll precautions, Spinal Precautions General Information Comment, OT : 50 yo female admitted s/p L3-S1 PLIF, bilateral pelvic fixation, L3-S1 deompression laminectomy by Dr. Damon 08/11. PMHx GERD, LBP to both hips and BLE to feet, R hand numbness. Brace in room RAJENDRA HARRIS OTR/Mar - 08/12/2021 12:44 EST General Status Patient Received Status : Supine in bed, HOB elevated Treatment Start Time : 08/12/2021 10:21 EST Patient Left Status : Up in chair, RN/PCT informed, All needs met and within reach, Other: back brace on RN/PCT Informed Comment : KIMBERLY jacksonayed OT eval and tx Treatment End Time : 08/12/2021 11:02 EST Treatment Time : 41 Minute(s) RAJENDRA HARRIS OTR/Mar - 08/12/2021 12:44 EST History and Environment, OT Living Situation, Therapy : Home Patient Lives With : Significant other(s) Persons Assisting Patient at Home : Alone, Significant other(s) Persons Providing Information : Patient Home Equipment, Therapy : None Home Setup : One story Stairs : Yes Stair Location(s) : Outside Outside Stairs Comment : a ramp from driveway and a small step to get into the door Ramp : Yes RAJENDRA HARRIS OTR/Mar - 08/12/2021 12:44 EST Prior LOF Bathing, OT : Independent Prior LOF Bed Mobility : Independent Prior LOF Upper Body Dressing, OT : Independent Prior LOF Lower Body Dressing, OT : Independent Prior LOF Toileting : Independent Prior LOF Transfer : Independent Prior LOF Grooming, OT : Independent Prior LOF for IADLs, OT : Independent RAJENDRA HARRIS OTR/Mar - 08/12/2021 12:44 EST Upper Extremity Upper Extremity Dominance : Right Right UE Active ROM : WFL Right UE Strength : WFL Left UE Active ROM : WFL Left UE Strength : WFL Right UE Strength : WFL Left UE Strength : WFL RAJENDRA HARRIS OTR/Mar - 08/12/2021 12:44 EST Right Upper Extremity MMT Shoulder Flexion 0-180 : 3/fair Shoulder Extension 0-60 : 3/fair Shoulder Abduction 0-180 : 3/fair Shoulder Adduction 0-180 : 3/fair Shoulder Internal Rotation 0-90 : 3/fair Shoulder External Rotation 0-90 : 3/fair Elbow Flexion 0-150 : 3/fair Elbow Extension 0-0 : 3/fair Wrist Flexion 0-80 : 3/fair Wrist Extension 0-70 : 3/fair Forearm Pronation 0-70 : 3/fair Forearm Supination 0-85 : 3/fair Ulnar Deviation 0-45 : 3/fair RadialDeviation 0-20 : 3/fair RAJENDRA HARRIS OTR/Mar - 08/12/2021 12:44 EST Left Upper Extremity MMT Shoulder Flexion 0-180 : 3/fair Shoulder Extension 0-60 : 3/fair Shoulder Abduction 0-180 : 3/fair Shoulder Adduction 0-180 : 3/fair Shoulder Internal Rotation 0-90 : 3/fair Shoulder External Rotation 0-90 : 3/fair Elbow Flexion 0-150 : 3/fair Elbow Extension 0-0 : 3/fair Wrist Flexion 0-80 : 3/fair Wrist Extension 0-70 : 3/fair Forearm Pronation 0-70 : 3/fair Forearm Supination 0-85 : 3/fair Ulnar Deviation 0-45 : 3/fair RadialDeviation 0-20 : 3/fair RAJENDRA HARRIS OTR/Mar - 08/12/2021 12:44 EST Hand Repairer Helper Test : WFL Fine Motor Coordination Impaired : No Upper Extremity Comment : R hand numbness RAJENDRA HARRIS OTR/Mar - 08/12/2021 12:44 EST Self Care/Home Management, OT Self Feeding Assist Level, OT : Independent, complete Grooming Assist Level, OT : Independent, modified Bathing Assist Level, OT : Supervision or set-up Upper Body Dressing Assist Level, OT : Assist, minimal Upper Body Comment, OT : Min A to don back brace while pt sitting unsupported EOB. Lower Body Dressing Assist Level, OT : Assist, minimal Toileting Assist Level : Assist, minimal Toilet Transfer Assist Level : Supervision or set-up Bed/Chair/WC Transfer Assist Level : Supervision or set-up Bed/Chair/WC Transfer Device : Belt, gait, Walker, front wheel Bed/Chair/WC Transfer Comment : Pt walked extended fxl distance in hallway to increase safety and endurance for ADL w/ RWx and spv. RAJENDRA HARRIS OTR/Mar - 08/12/2021 12:57 EST Functional Mobility Mobility Grid Bed Roll Left : Rehab Moderate assistance Bed Scooting : Supervision/set-up Supine to Sit : Rehab Moderate assistance Sit to Stand : Rehab Minimal assistance Bed to Chair : Supervision/set-up Stand to Sit : Supervision/set-up RAJENDRA HARRIS OTR/Mar - 08/12/2021 12:57 EST Supine to Sit Device : Cloth under pad, Rails, Other: HOB elevated Sit to Stand Device : Belt, gait, Walker, front wheel Bed to Chair Device : Belt, gait, Walker, front wheel RAJENDRA HARRIS OTR/Mar - 08/12/2021 12:57 EST Cognition Assessment, OT Orientation : Oriented x 4 Cognition Assessment, OT : Intact Comprehension Assessment, OT : Intact Safety/Judgment Assessment, OT : Intact Follows Basic Command Assessment, OT : Intact Attention Assessment : Present RAJENDRA HARRIS OTR/Mar - 08/12/2021 12:57 EST Indication Assessment, OT Occupational Therapy Indicated : Yes Problem List, OT : Impaired, bed mobility, Impaired, activities daily living, Impaired, endurance tolerance, Impaired functional mobility, Impaired, standing balance, Impaired, strength, Impaired, transfers, Pain limiting function Potential Barriers, OT : None evident Rehabilitation Potential, OT : RAJENDRA Nunes OTR/Mar - 08/12/2021 12:57 EST Plan of Care, OT OT Tx Plan/Goals Established w Patient : Yes OT Frequency Rehab : Five days per week OT Duration Rehab : Fourteen days OT Treatments Planned : Activities of daily living, Balance training, Functional mobility training, Pain management, Safety education, Therapeutic activities, Therapeutic exercises RAJENDRA HARRIS OTR/Mar - 08/12/2021 12:57 EST Nursing Home Goals, OT Dressing, Lower Body LTG Grid Goal #1 Activity : Dressing, Lower Body Assist : Supervision or set up Equipment : Long Handled Editorial Manager, Sock aid, Long handled shoehorn Date to Meet : 08/26/2021 EST Goal Status : Initial goal RAJENDRA HARRIS OTR/Mar - 08/12/2021 12:57 EST Toilet Transfer LTG Grid Goal #1 Activity : Toilet Transfer, Ambulatory Assist : Independent, modified Date to Meet : 08/26/2021 EST Goal Status : Initial goal Comment : bathroom toilet, demo good safety RAJENDRA HARRIS OTR/L - 08/12/2021 12:57 EST Bed Mobility/ Bed Transfer LTG Grid Goal #1 Goal #2 Activity : Bed Mobility, Supine to Sit Bed Mobility, Sit to Supine Assist : Supervision or set up Supervision or set up Date to Meet : 08/26/2021 EST 08/26/2021 EST Goal Status : Initial goal Initial goal Comment : log roll technique log roll technique RAJENDRA HARRIS OTR/Mar - 08/12/2021 12:57 EST RAJENDRA HARRIS OTR/Mar - 08/12/2021 12:57 EST Treatment Note Subjective Comment : Pt agreeable, reported discomfort Patient's Response to Treatment : good participation and tolerance Additional Objective Information : Pt participated in formal OT evaluation and UE assessment. Pt ed re: spinal precautions, log roll technique for bed mobility, ADL adaptations, AE for ADL (AE issued), posture, car txfs, scapula squeezes. Pt performed bed mobility via log roll w/ mod A and max VC to complete. Pt walked extended fxl distance in hallway to increase safety and endurance for ADL w/ RWx and spv. Pt left in chair w/ needs in reach. Assessment : Pt would benefit from skilled OT services during admission, HH services once discharged home. Plan for Treatment : see POC and LTG RAJENDRA HARRIS OTR/Mar - 08/12/2021 12:57 EST Pain Assessment Pain Scaled Used : 0-10 Pain scale Pain Score Pre-Intervention : 6 Location : Back, Incisional Pain Improved by : Repositioning Pain Intervention, Non-Drug : Breathing exercises, Distraction, Exercise, Positioning, Other: back brace RAJENDRA HARRIS OTR/Mar - 08/12/2021 12:57 EST Image 1 - Images currently included in the form version of this document have not been included in the text rendition version of the form. Anticipated Discharge Needs, OT/PT Anticipated Discharge to : Home, with family care, Home, with home health Anticipated Home Equipment : None Recommend Continued Therapy at Discharge : Yes RAJENDRA HARRIS OTR/Mar - 08/12/2021 12:[address] [facility] OT Charges OT Selfcare/Hm Mgmt Ea 15 Min : 2 OT Eval Low Complexity : 1 RAJENDRA HARRIS OTR/L - 08/12/2021 12:57 EST Electronically signed by [facility], [facility] Conversion Pharmacy Services Director Cerner at 12/28/2022 7:40 PM CDT documented in this encounter Plan of Treatment Not on file documented as of this encounter Visit Diagnoses Not on filedocumented in this encounter
--- OUTSIDE RECORDS SUMMARY | 2025-04-08 13:58 | XMS_ITS | Encounter Summary ---
Author Organization [employer] ([place], [place], [place], [place]) Address [address] [place] [address] Care Team Providers Care Director Special Education Name Role Phone Unavailable Primary Care Provider Unavailabl e Encounter Details Date Type Department Care Team (Late st Contact Info) Description 08/15/2021 Transcribed Document [facility] [place] [facility] [place] [address] ProviderMaxine MD [address] [place] [address] Social History Tobacco Use Types Packs/Day Years Used Date Smoking Tobacco: Never Assessed Comments Unknown Sex and Gender Information Value Date Recorded Sex Assigned at Unknown 03/06/2022 8:57 PM CDT Legal Sex Female 8:57 PM CDT Gender Identity Not on file Sexual Orientation Not on file documented as of this encounter Miscellaneous Notes * Cerner Conversion Note - Historical ProviderMD - 08/15/2021 12:33 PM TIP SCOURER UM Authorization Entered On: 08/15/2021 12:33 EST Performed On: 08/15/2021 12:33 EST by Julisa Owusu, Coin Machine Assembler Primary Insurance Authorization Authorization and Policy Numbers : Insurance 1 Health Plan: [facility] Policy Number: [id number] Authorization Number: [id number] Insurance Primary Name : Esperanza [id number] Authorization Status-Primary : Admit approved Auth/Referral Contact Name-Primary : [place] Authorization Number-Primary : [id number] Number of Days Authorized-Primary : 1 Day(s) Authorized Service Begin Date-Primary : 08/11/2021 EST Authorized Service End Date-Primary : 08/12/2021 EST Authorization Comments-Primary : Discharge date and summary faxed. Historical Authorization Comments-Primary : Comment 1: CLINICAL FGAXED FOR C/S DOS 08/13 VIA [employer] (Swathi Yancey, Rn-Utilization Review 08/14/2021 08:52) Comment 2: pt is aramis for INPT lumbar fusion posterior 3 level on Saturday08-11-21 per [facility] [place] approved 2 days INPT auth# [id number] (JOSEFINA ALMONTE, Support Worker 08/09/2021 13:43) Julisa Owusu, Coin Machine Assembler - 08/15/2021 12:33 EST Electronically signed by Yolanda, [facility] Conversion Respiratory Therapy Instructor Cerner at 12/28/2022 7:40 PM CDT documented in this encounter Plan of Treatment Not on file documented as of this encounter Visit Diagnoses Not on filedocumented in this encounter
--- OUTSIDE RECORDS SUMMARY | 2025-04-08 13:58 | XMS_ITS | Encounter Summary ---
Author Organization [employer] ([place], [place], [place], [place]) Address [address] [place] [address] Care Team Providers Care Vp Of Technology Name Role Phone Unavailable Primary Care Provider Unavailabl e Encounter Details Date Type Department Care Team (Late st Contact Info) Description 08/12/2021 Transcribed Document [facility] Radiology [address] [place] [address] Silva Merlos MD [facility] [address] [address] Social History Tobacco Use Types Packs/Day Years Used Date Smoking Tobacco: Never Assessed Comments Unknown Sex and Gender Information Value Date Recorded Sex Assigned at Unknown 03/06/2022 8:57 PM CDT Legal Sex Female 8:57 PM CDT Gender Identity Not on file Sexual Orientation Not on file documented as of this encounter Miscellaneous Notes * Cerner Conversion Note - Silva Merlos MD - 08/12/2021 12:03 PM EST Patient: SERA CALI Age: 50 years Sex: Female : 1970 Associated Diagnoses: None Author: SILVA MERLOS MD-INT cc: medical management s/p L3-S1 PLIF with possible iliac bolts S; doing well. no medical complaints. doing well. no fever, chills, nightsweats. denies cough. no sob or chaudhary. no chest pain, pressure or palpitations. no nausea, vomiting. (+) flatus. (-) BM no issues with urination - block no calf tenderness. tolerable post-op soreness/pain, numbness HPI: Patient is a 50 yo female admitted to [facility] per Dr. Delgado for an L3-S1 PLIF with possible iliac bolts. Preoperatively patient was found to have advanced spondylolisthesis of the lumbar spine and elected surgical intervention after failing conservative treatment. Patient is followed perioperatively while hospitalized for medical management. Initial visit in PACU -- Denies prior stroke or seizure. Denies VA, CHF or cardiac arrhythmia. Denies DM. Denies [...] mg, Oral, Daily Vitamin B12 , IntraMuscular, [id number] ROS: Constitutional: [No fevers, chills, sweats] very sleepy after surgery HEENT: [No ear pain, nasal congestion, sore throat] Respiratory: [No shortness of breath, cough, sputum production] Cardiovascular: [No Chest pain, palpitations, shortness of breath] Gastrointestinal: [No nausea, vomiting, diarrhea, constipation] Genitourinary: [No hematuria, dysuria, incontinence Musculoskeletal: [No back pain, neck pain, joint pain, muscle pain, decreased range of motion] Integumentary: [No rash, pruritus, abrasions, lesions] Neurologic: [No seizures or stroke. No dizziness or syncope. Exam: Vitals Signs (last 24 hrs) Last Charted Minimum Maximum Temp 98.5 (AUG 12 03:06) 97.6 (AUG 11 17:35) 98.4 (AUG 11:09) Mon HR 66 (AUG 12 09:23) 63 (AUG 12 03:06) 91 (AUG 11 12:25) Resp Rate 16 (AUG 12 09:23) L 9 (AUG 11 12:25) 18 (AUG 11 12:15) SBP 102 (AUG 12:06) 98 (AUG 11 21:09) 139 (AUG 11 12:30) DBP L 48 (AUG 12:06) L 43 (AUG 11:09) 77 (AUG 11 12:45) MAP 62 (AUG 12:06) 57 (AUG 11 21:09) 96 (AUG 11 12:45) SpO2 100 (AUG 12 05:52) L 90 (AUG 11 12:40) 100 (AUG 12:06) obese white woman in no distress; pleasant, cooperative, good historian; nc/at, eomi, PEERL, pink conjunctiva, moist mucous membranes, no thyromegaly or cervical lymphadenopathy =expansion b/l without wheezes rales or rhonchi non-displaced PMI, reg s1, s2 ABDis soft non-tender, non-distended, norm bowel sounds skin warm, dry without rashes ext: without edema, no calf tenderness neuro: cn 2-12 intact; no gross motor -sensory deficits psych: normal affect, good mood Data: Labs (Last four charted values) WBC H 16.0 (AUG 12) H 10.6 (AUG 09) HB L 10.1 (AUG 12) 13.1 (AUG 09) HCT L 32.0 (AUG 12) 40.3 (AUG 09) Plt 290 (AUG 12) 350 (AUG 09) Na 138 (AUG 12) 139 (AUG 09) K 4.5 (AUG 12) 4.1 (AUG 09) Cl 109 (AUG 12) 106 (AUG 09) CO2 25 (AUG 12) 26 (AUG 09) BUN 13 (AUG 12) 16 (AUG 09) Cr 0.70 (AUG 12) 0.70 (AUG 09) Glu R H 122 (AUG 12) 96 (AUG 09) Ca 8.5 (AUG 12) 9.3 (AUG 09) Impression: advanced spondylolisthesis Lspine -s/p L3-S1 PLIF with possible iliac bolts per Dr. Delgado GERD chronic constipation REINA Plan: cpap Monitor BP; add PRN's, hold parameters bowel regimen incentive spirometer PT/OT DVT prophylaxis: scds Pain management deferred to surgeon will monitor hb/hct daily for signs of ongoing acute blood loss will monitor bun/cr daily for signs of dehydration, prerenal azotemia will monitor for signs/symptoms of post-op wound infection or hospital acquired infectious process resume outpatient medication regimen for comorbidities Assessment and treatment plan made in conjunction with Debi Merlos MD Scribed by Winnie Silverman documented in this encounter Plan of Treatment Not on file documented as of this encounter Visit Diagnoses Not on filedocumented in this encounter
--- OUTSIDE RECORDS SUMMARY | 2025-04-08 13:58 | XMS_ITS | Encounter Summary ---
Author Organization [employer] ([place], [place], [place], [place]) Address [address] [place] [address] Care Team Providers Care Supervisor Paint Name Role Phone Unavailable Primary Care Provider Unavailabl e Encounter Details Date Type Department Care Team (Late st Contact Info) Description 08/11/2021 Transcribed Document [facility] [place] [address] [place] [address] ProviderMaxine MD [address] [place] [address] Social History Tobacco Use Types [...] - Historical ProviderMD - 08/11/2021 12:13 PM MOTEL FRONT DESK CLERK Consult Phone Call Documentation Entered On: 08/11/2021 16:16 EST Performed On: 08/11/2021 12:13 EST by KENNA DURANT Phone Call for Consults Consult Phone Call/Page Attempt : First call KENNA DURANT - 08/11/2021 16:16 EST documented in this encounter Plan of Treatment Not on file documented as of this encounter Visit Diagnoses Not on filedocumented in this encounter
--- OUTSIDE RECORDS SUMMARY | 2025-04-08 13:58 | XMS_ITS | Encounter Summary ---
Author Organization [employer] ([place], [place], [place], [place]) Address [address] [place] [address] Care Team Providers Care Cognos Report Developer Name Role Phone Unavailable Primary Care Provider Unavailabl e Encounter Details Date Type Department Care Team (Late st Contact Info) Description 08/17/2021 Transcribed Document [facility] [place] Family Medicine [address] [place] [address] ProviderMaxine MD [address] [place] [address] Social History Tobacco Use Types Packs/Day Years Used Date Smoking Tobacco: Never Assessed Comments Unknown Sex and Gender Information Value Date Recorded Sex Assigned at Unknown 03/06/2022 8:57 PM CDT Legal Sex Female 8:57 PM CDT Gender Identity Not on file Sexual Orientation Not on file documented as of this encounter Miscellaneous Notes * Cerner Conversion Note - Historical ProviderMD - 08/17/2021 1:25 PM PROJECT ASST UM Authorization Entered On: 08/17/2021 13:25 EST Performed On: 08/17/2021 13:25 EST by Julisa Owusu, Bed Machine Operator Primary Insurance Authorization Authorization and Policy Numbers : Insurance 1 Health Plan: [facility] Policy Number: [id number] Authorization Number: [id number] Insurance Primary Name : Esperanza [id number] Authorization Status-Primary : Admit approved Auth/Referral Contact Name-Primary : [place] - MONE Authorization Number-Primary : [id number] Number of Days Authorized-Primary : 1 Day(s) Authorized Service Begin Date-Primary : 08/11/2021 EST Authorized Service End Date-Primary : 08/12/2021 EST Historical Authorization Comments-Primary : Comment 1: Discharge date and summary faxed. (Julisa Owusu, Bed Machine Operator 08/15/2021 12:33) Comment 2: CLINICAL FGAXED FOR C/S DOS 08/13 VIA [employer] (Swathi Yancey, Rn-Utilization Review 08/14/2021 08:52) Comment 3: pt is aramis for INPT lumbar fusion posterior 3 level on Saturday08-11-21 per [facility] [place] approved 2 days INPT auth# [id number] (JOSEFINA ALMONTE, Nurse Chemical Dependency 08/09/2021 13:43) Julisa Owusu, Bed Machine Operator - 08/17/2021 13:25 EST Electronically signed by Yolanda [facility] Conversion Engineer Sergeant Cerner at 12/28/2022 7:48 PM CDT documented in this encounter Plan of Treatment Not on file documented as of this encounter Visit Diagnoses Not on filedocumented in this encounter
--- OUTSIDE RECORDS SUMMARY | 2025-04-08 13:58 | XMS_ITS | Encounter Summary ---
Author Organization [employer] ([place], [place], [place], [place]) Address [address] [place] [address] Care Team Providers Care Diet Counselor Name Role Phone Unavailable Primary Care Provider Unavailabl e Encounter Details Date Type Department Care Team (Late st Contact Info) Description 08/11/2021 Transcribed Document [facility] [place] Family Medicine Formerly [facility] [address] ProviderMaxine MD [address] [place] [address] Social History Tobacco Use Types [...] - Historical ProviderMD - 08/11/2021 12:13 PM NEURO OPHTHALMOLOGIST Evaluation, Physical Therapy Entered On: 08/11/2021 15:12 EST Performed On: 08/11/2021 14:49 EST by Supriya Cam INTERN-PHYSICAL THERAPY General Information, PT Visit Type, PT : Initial evaluation Patient Orders : Order Date Order Ordering MD 08/11/2021 12:13 Physical Therapy Eval and Treat Ordered By: CARLOS DAMON MD-SNU Active Diagnoses : 08/11/2021 12:00 Other spondylosis with myelopathy, lumbar region Therapy Diagnosis, PT : Dx: pain limiting function Onset of Problem, PT : 08/11/2021 EST Admission Date : 08/11/2021 06:40 Assisted by, PT : medical coding technician/aide Personal Devices : Personal Devices No Devices Recorded Assistive Devices : Assistive Devices No Devices Recorded Precautions in Place : Fall prevention measures, Spinal Precautions General Information Comment, PT : Hx: GERD, back pain Dx: spondylosis Sx: 08/11/2021 L3-S1 PLIF Supriya Cam INTERNPHYSICAL THERAPY - 08/11/2021 14:55 EST General Status Patient Received Status : Supine in bed Treatment Start Time : 08/11/2021 14:31 EST Patient Left Status : Supine in bed, Communication board completed, All needs met and within reach RN/PCT Informed Comment : RN ok'd PTx Treatment End Time : 08/11/2021 14:49 EST Treatment Time : 18 Minute(s) Supriya Cam INTERNPHYSICAL THERAPY - 08/11/2021 14:55 EST History and Environment Living Situation, Therapy : Home Patient Lives With : Significant other(s) Persons Providing Information : Patient, Child/Children Home Equipment Therapy, PT : None Home Setup : One story Stairs : Yes Stair Location(s) : Outside Outside Stairs Comment : a ramp from driveway and a small step to get into the door Supriya Cam INTERNPHYSICAL THERAPY - 08/11/2021 14:55 EST Prior Level of Function PT GRID Prior LOF Ambulation, Household : Independent Prior LOF Ambulation, Community : Independent Prior LOF Bed Mobility : Independent Prior LOF Toileting : Independent Prior LOF Transfer : Independent Supriya Cam INTERNPHYSICAL THERAPY - 08/11/2021 14:55 EST Lower Extremity Lower Extremity Comment : MMT not performed 2/2 pain Supriya Cam INTERNPHYSICAL THERAPY - 08/11/2021 14:55 EST Functional Mobility Mobility Grid Bed Roll Left : Rehab Minimal assistance Supine to Sit : Rehab Minimal assistance Sit to Stand : Rehab Minimal assistance Stand to Sit : Rehab Minimal assistance Sit to Supine : Rehab Minimal assistance Supriya Cam INTERNPHYSICAL THERAPY - 08/11/2021 14:55 EST Bed Mobility Scooting Device : Rails Supine to Sit Device : Rails Sit to Stand Device : Belt, gait, Walker, front wheel Stand to Sit Device : Belt, gait, Walker, front wheel Sit to Supine Devices : Rails Supriya Cam INTERNPHYSICAL THERAPY - 08/11/2021 14:55 EST Gait Training/Assessment, PT Weight Bearing Status Maintained : Yes Weight Bearing Status : Full Gait Assistance Level : Assist, minimal Walking Distance : 50' with RWx with Min A Ambulatory Devices : Gait belt, Walker, front wheel Supriya Cam INTERN-PHYSICAL THERAPY - 08/11/2021 14:55 EST Cognition Assessment, PT Orientation : Oriented x 4 Follows Basic Command Assessment : pt able to follow commands appropriately. Supriya Cam INTERN-PHYSICAL THERAPY - 08/11/2021 14:55 EST Edu Topics Physical Therapy Education Grid Bed Mobility Training : Returns demonstration, Needs further teaching Precaution/Contraindication : Verbalizes understanding Role of Physical Therapy : Verbalizes understanding Supriya Cam INTERN-PHYSICAL THERAPY - 08/11/2021 14:55 EST Balance Training : Returns demonstration, Needs further teaching TYE TIERNEY, PT - 08/11/2021 15:37 EST Indication Assesessment, PT PT Problem List : Impaired, activities daily living, Impaired, bed mobility, Impaired, gait, Impaired, joint mobility, Impaired, standing balance, Impaired, strength, Impaired, transfers, Pain limiting function TYE TIERNEY, PT - 08/11/2021 15:37 EST Physical Therapy Indicated : Yes Potential Barriers To Therapy : Acuity of Illness, Pain Rehabilitation Potential : Good Supriya Cam INTERN-PHYSICAL THERAPY - 08/11/2021 14:55 EST Plan of Care, PT PT Tx Plan/Goals Established w Patient : Yes PT Frequency Rehab : Daily, twice (bid) PT Duration Rehab : Fourteen days PT Treatments Planned : Balance training, Bed mobility training, Caregiver training, Gait training, Neuromuscular reeducation, Pain management, Safety education, Stair training, Therapeutic exercises, Transfer training Supriya Cam INTERN-PHYSICAL THERAPY - 08/11/2021 14:55 EST Fabrication Welder Goals Mobility/Bed Mobility LTG PT Grid Goal #1 Activity : Supine to sit Cues : No cues Assist : Independent, modified Equipment : Bed, hospital Date to Meet : 08/25/2021 EST Goal Status : Intial Goal Comment : with log roll technique Supriya Cam INTERN-PHYSICAL THERAPY - 08/11/2021 14:55 EST Ambulation LTG Grid Goal #1 Device : Walker, front wheel Distance : 250' Cues : No cues Assist : Independent, modified Date to Meet : 08/25/2021 EST Goal Status : Intial Goal Supriya Cam INTERN-PHYSICAL THERAPY - 08/11/2021 14:55 EST Stairs LTG Grid Goal #1 Device : Walker, front wheel Number of Steps : 1 Handrail(s) : No handrails Assist : Independent, modified Date to Meet : 08/25/2021 EST Goal Status : Intial Goal Supriya Cam INTERN-PHYSICAL THERAPY - 08/11/2021 14:55 EST Treatment Note Subjective Comment : pt agreed to PTx. Additional Objective Information : pt was educated on a log roll technique and spinal precautions. Pt completed bed mobility with Min A. Pt completed a STS with Min A and ambulated 40' with RWx and Min A. Pt returned to room and completed a STS transfer with Min A. Pt was educated again on a log roll technique to return to bed safely. Pt was left with all needs met. Assessment : Pt demonstrated pain limiting function today with mobility. Pt required verbal cuing to maintain spinal precautions with bed mobility. Pt would benefit from continued skilled PT services to initiate stair training and increase endurance with ambulation. Supriya Cam INTERN-PHYSICAL THERAPY - 08/11/2021 14:55 EST Plan for Treatment : Continue with PTx and POC. PT has reviewed and agrees. TYE TIERNEY, PT - 08/11/2021 15:37 EST Pain Assessment Pain Scaled Used : 0-10 Pain scale Pain Score Pre-Intervention : 6 Location : Back, lower Pain Improved by : Medication, Relaxation, Repositioning Supriya Cam INTERN-PHYSICAL THERAPY - 08/11/2021 14:55 EST Image 1 - Images currently included in the form version of this document have not been included in the text rendition version of the form. Anticipated Discharge Needs, OT/PT Anticipated Discharge to : Home, with home health Recommend Continued Therapy at Discharge : Yes Supriya Cam INTERN-PHYSICAL THERAPY - 08/11/2021 14:55 EST [place] PT Charges PT Eval Moderate Complexity : 1 Supriya Cam INTERN-PHYSICAL THERAPY - 08/11/2021 14:55 EST documented in this encounter Plan of Treatment Not on file documented as of this encounter Visit Diagnoses Not on filedocumented in this encounter
--- OUTSIDE RECORDS SUMMARY | 2025-04-08 13:58 | XMS_ITS | Encounter Summary ---
Author Organization [employer] ([place], [place], [place], [place]) Address [address] [place] [address] Care Team Providers Care Solution Engineer Name Role Phone Unavailable Primary Care Provider Unavailabl e Encounter Details Date Type Department Care Team (Late st Contact Info) Description 08/17/2021 Transcribed Document [facility] [place] Family Medicine [address] [place] [address] ProviderMaxine MD [address] [place] [address] Social History Tobacco Use Types [...] Conversion Note - Historical ProviderMD - 08/17/2021 2:02 PM WET PROCESS MILLER UM Authorization Entered On: 08/17/2021 14:02 EST Performed On: 08/17/2021 14:02 EST by Julisa Owusu, Ict Development Manager Primary Insurance Authorization Authorization and Policy Numbers : Insurance 1 Health Plan: [facility] Policy Number: [id number] Authorization Number: [id number] Insurance Primary Name : Esperanza [id number] Authorization Status-Primary : Approved Auth/Referral Contact Name-Primary : DC - MONE Authorization Number-Primary : [id number] Number of Days Authorized-Primary : 2 Day(s) Authorized Service Begin Date-Primary : 08/11/2021 EST Authorized Service End Date-Primary : 08/13/2021 EST Authorization Comments-Primary : Authorized per phone - Antonio - All days approved. Historical Authorization Comments-Primary : Comment 1: Discharge date and summary faxed. (Julisa Owusu, Ict Development Manager 08/15/2021 12:33) Comment 2: CLINICAL FGAXED FOR C/S DOS 08/13 VIA [employer] (Swathi Yancey, Rn-Utilization Review 08/14/2021 08:52) Comment 3: pt is aramis for INPT lumbar fusion posterior 3 level on Saturday08-11-21 per [facility] [place] approved 2 days INPT auth# [id number] (JOSEFINA ALMONTE, Temple Meat Cutter 08/09/2021 13:43) Julisa Owusu, Ict Development Manager - 08/17/2021 14:02 EST documented in this encounter Plan of Treatment Not on file documented as of this encounter Visit Diagnoses Not on filedocumented in this encounter
--- OUTSIDE RECORDS SUMMARY | 2025-04-08 13:58 | XMS_ITS | Encounter Summary ---
Author Organization [employer] ([place], [place], [place], [place]) Address [address] [place] [address] Care Team Providers Care Director Of Plant Operations Name Role Phone Unavailable Primary Care Provider Unavailabl e Encounter Details Date Type Department Care Team (Late st Contact Info) Description 08/13/2021 Transcribed Document [facility] [place] Former[facility] [place] [address] ProviderMaxine MD [address] [place] [address] Social History Tobacco Use Types [...] Conversion Note - Historical ProviderMD - 08/13/2021 10:00 AM DIRECTOR GAME Pain Assessment Entered On: 08/13/2021 16:25 EST Performed On: 08/13/2021 9:30 EST by ELPIDIO GARCIA RN Intervention Information: acetaminophen Performed by ELPIDIO GARCIA RN on 08/13/2021 08:30:00 EST acetaminophen,650mg Oral Pain Assessment Pain Assessment : Follow-up assessment Pain Scale Goal : 5 Pain Scale Used : 0-10 Scale Location : Back Pain Improved by Intervention : Yes ELPIDIO GARCIA RN - 08/13/2021 16:24 EST Pain Scale Intensity : 4 ELPIDIO GARCIA RN - 08/13/2021 16:24 EST Image 4 - Images currently included in the form version of this document have not been included in the text rendition version of the form. documented in this encounter Plan of Treatment Not on file documented as of this encounter Visit Diagnoses Not on filedocumented in this encounter
--- OUTSIDE RECORDS SUMMARY | 2025-04-08 13:58 | XMS_ITS | Encounter Summary ---
Author Organization [employer] ([place], [place], [place], [place]) Address [address] [place] [address] Care Team Providers Care Foreign Languages Professor Name Role Phone Unavailable Primary Care Provider Unavailabl e Encounter Details Date Type Department Care Team (Late st Contact Info) Description 08/21/2021 Transcribed Document [facility] Neurology - [address] [facility] [address] [place] [address] Carlos Damon MD [address] [place] [address] Social History Tobacco Use Types Packs/Day Years Used Date Smoking Tobacco: Never Assessed Comments Unknown Sex and Gender Information Value Date Recorded Sex Assigned at Unknown 03/06/2022 8:57 PM CDT Legal Sex Female 8:57 PM CDT Gender Identity Not on file Sexual Orientation Not on file documented as of this encounter Miscellaneous Notes * Cerner Conversion Note - Carlos Damon MD - 08/21/2021 7:19 AM EST Patient: SERA CALI Age: 50 Years Sex: Female : 1970 Admit Date 08/11/2021 06:40 Discharge Date 08/14/2021 17:42 Primary Care Provider NERI RODRIGUEZ (REF)MD-[facility] Discharge Diagnosis Other spondylosis with myelopathy, lumbar region 08/14/2021 M47.16 ICD-10-CM Procedures 1. L3-4, L4-5 and L5-S1 posterior lumbar interbody fusion. 2. Bilateral pelvic fixation. 3. L3 through S1 decompressive laminectomy. 4. Intraoperative CT scan with stereotactic navigation (08/11/21 12:06:12) Reason for Hospitalization Lumbar fusion Hospital Course 50-year-old female initially evaluated in the office was found to have intractable left lumbar radiculopathy not responsive to conservative management. Dr. Damon recommended a L3 through iliac fusion. After consent was obtained the patient underwent above said procedure without major complication. She was transferred from the OR to PACU to the full role in stable condition. Medicine, physical therapy, case management were all consulted. She was started on subcutaneous heparin postop day 1.Potter was DC'd on postop day 1. JENNIFER drain was DC'd on postop day 2. Patient demonstrated good pain control and good function mobility and she was discharged to home on postop day 3 in stable and improved condition. During this admission she remained hemodynamically stable, she had mild fever of tmax 100.2 on POD3 without localizing symptoms. Vital Signs Oxygen Settings (Last) Oxygen Therapy Mode: Room air (08/14/21 09:10:00) Oxygen Flow Rate: 2 Liter/Min (08/12/21 16:32:00) Physical Exam AO in NAD laying in bed 5/5 BLE strength incision cdi skin warm and dry nonlabored breathing maew abd soft nontender Discharge Disposition Home Discharge Follow Up CARLOS DAMON - 02:00 PM CARLOS DAMON - 10:45 AM Discharge Medications (7) Active buPROPion 300 mg, Oral, Daily cyclobenzaprine 10 mg oral tablet 10 mg = 1 Tab, PRN, Oral, TID pantoprazole 40 mg, Oral, BID Percocet 7.5/325 oral tablet 1 Tab, PRN, Oral, Q6H Tylenol 1,500 mg, PRN, Oral, BID venlafaxine 150 mg, Oral, Daily Vitamin B12 , IntraMuscular, [id number] Code Status No Code Status Order on Record Condition on Discharge stable and improved Consulting Physicians TAMARA TOTH MD-ARSENIO NICOLE NA DOODNAUTH, DAVANAND C, MD-INT Current Diet Order No qualifying data available. Pending Labs No Labs on Record documented in this encounter Plan of Treatment Not on file documented as of this encounter Visit Diagnoses Not on filedocumented in this encounter
--- OUTSIDE RECORDS SUMMARY | 2025-04-08 13:58 | XMS_ITS | Encounter Summary ---
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 Name Role Phone Unavailable Primary Care Provider Unavailabl e Encounter Details Date Type Department Care Team (Late st Contact Info) Description 08/11/2021 Transcribed Document [facility] Radiology [address] [place] [id number] Darron Merlos MD [address] [place] [address] Social History Tobacco Use Types Packs/Day Years Used Date Smoking Tobacco: Never Assessed Comments Unknown Sex and Gender Information Value Date Recorded Sex Assigned at Unknown 03/06/2022 8:57 PM CDT Legal Sex Female 8:57 PM CDT Gender Identity Not on file Sexual Orientation Not on file documented as of this encounter Miscellaneous Notes * Cerner Conversion Note - Darron Merlos MD - 08/11/2021 11:02 AM EST Patient: SERA CALI Age: 50 years Sex: Female : 1970 Associated Diagnoses: None Author: [facility] PA-FAM 08/11/2021 cc: medical management s/p L3-S1 PLIF with possible iliac bolts HPI: Patient is a 50 yo female admitted to [facility] per Dr. Delgado for an L3-S1 PLIF with possible iliac bolts. Preoperatively patient was found to have advanced spondylolisthesis of the lumbar spine and elected surgical intervention after failing conservative treatment. Patient is followed perioperatively while hospitalized for medical management. Initial visit in PACU -- Denies prior stroke or seizure. Denies NV, CHF or cardiac arrhythmia. Denies DM. Denies [...] mg, Oral, Daily Vitamin B12 , IntraMuscular, [id number] ROS: Constitutional: [No fevers, chills, sweats] very [...] (AUG 11:) Mon HR 70 (AUG 11 07:00) 70 (AUG 11:) 70 (AUG 11:) Resp Rate 18 (AUG 11:) 18 (AUG 11:00) 18 (AUG 11:) SBP H 146 (AUG 11:) H 146 (AUG 11:) H 146 (AUG 11) DBP 88 (AUG 11:) 88 (AUG 11:) 88 (AUG 11:) MAP 108 (AUG 11:) 108 (AUG 11:) 108 (AUG 11:) SpO2 97 (AUG 11:) 97 (AUG 11:) 97 (AUG 11:) GEN: sleepy, NAD Neck: supple, no thyromegaly HEENT: NCAT, no icterus, no thrush, nares patent, CV: S1S2, no murmur. No LE edema Resp: CTAB, NL Abd: Soft, NT, ND +BS Skin: no rashes on inspection and palpation. Ext: No LE edema. No joint edema, erythema. Neuro: O x 3, CN grossly intact Data: Labs (Last four charted values) WBC H 10.6 (AUG 09) HB 13.1 (AUG 09) HCT 40.3 (AUG 09) Plt 350 (AUG 09) Na 139 (AUG 09) K 4.1 (AUG 09) Cl 106 (AUG 09) CO2 26 (AUG 09) BUN 16 (AUG 09) Cr 0.70 (AUG 09) Glu R 96 (AUG 09) Ca 9.3 (AUG 09) Impression: advanced spondylolisthesis Lspine [...]
--- OUTSIDE RECORDS SUMMARY | 2025-04-08 13:58 | XMS_ITS | Encounter Summary ---
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 Role Phone Unavailable Primary Care Provider Unavailabl e Encounter Details Date Type Department Care Team (Late st Contact Info) Description 08/14/2021 Transcribed Document [facility] Neurology - [address] [facility] [address] [place] [address] Carlos Delgado MD [address] [place] [address] Social History Tobacco Use Types Packs/Day Years Used Date Smoking Tobacco: Never Assessed Comments Unknown Sex and Gender Information Value Date Recorded Sex Assigned at Unknown 03/06/2022 8:57 PM CDT Legal Sex Female 8:57 PM CDT Gender Identity Not on file Sexual Orientation Not on file documented as of this encounter Miscellaneous Notes * Cerner Conversion Note - Carlos Delgado MD - 08/14/2021 9:41 AM EST Patient: SERA MATTHEWS Age: 50 Years Sex: Female : 1970 Assessment/Plan POD3 L3-iliac PLIF -doing well this AM, wants to go home. OK to go home with HH. VTE Prophylaxis - Medical Heparin 5,000 Units, SubCutaneous, Inj, Q8H, Routine, Start 08/12/21 18:02:00 EST, 08/12/21 18:02:00 EST (CARLOS DELGADO) Sequential Compression Device Start: 08/11/21 12:13:00 EST, Bilateral, Continuous Order (CARLOS DELGADO) Subjective Feeling OK this AM. Endorses pain well controlled incisional low back and anterior and lateral BLE. Feels good to go home. Vital Signs T: 37.8 ??C TMIN: 37.3 ??C TMAX: 37.9 ??C HR: 82(Monitored) RR: 15 BP: 119/58 SpO2: 97% Oxygen Settings (Last) Oxygen Therapy Mode: CPAP (08/14/21 05:36:00) Oxygen Flow Rate: 2 Liter/Min (08/12/21 16:32:00) Intake & Output Totals Last 24 Hours (7a-7a) Input Total: 320 mL Output Total: 650 mL Balance: -330 mL Physical Exam AO in NAD laying in bed 5/5 BLE strength incision cdi skin warm and dry nonlabored breathing maew abd soft nontender Medications buPROPion, 300 mg= 1 Tab, Oral, Daily calcium gluconate calcium gluconate + Sodium Chloride 0.9% intravenous solution 100 mL calcium gluconate + Sodium Chloride 0.9% intravenous solution 100 mL Chloraseptic 6 mg-10 mg mucous membrane lozenge, 1 Lozenge, Oral, Q2H, PRN cloNIDine, 0.2 mg= 1 Tab, Oral, Q4H, PRN Dilaudid, 0.5 mg= 0.5 mL, IV Push, Q1H, PRN Dilaudid, 0.25 mg= 0.25 mL, IV Push, Q1H, PRN docusate sodium, 200 mg= 2 Cap, Oral, BID Dulcolax Laxative, 10 mg= 1 Supp, Rectal, BID, PRN Dulcolax Laxative, 10 mg= 1 Supp, Rectal, BID, PRN Dulcolax Laxative, 10 mg= 2 Tab, Oral, BID, PRN Fleet Enema, 133 mL, Rectal, Daily, PRN Flexeril, 10 mg= 1 Tab, Oral, TID, PRN heparin, 5000 Units= 1 mL, SubCutaneous, Q8H hydrALAZINE, 10 mg= 0.5 mL, IV Push, Q6H, PRN Lactated Ringers Injection intravenous solution 1,000 mL, 1000 mL, IntraVENous magnesium sulfate, 2 Gram= 50 mL, IV Piggyback, Daily, PRN magnesium sulfate, 2 Gram= 50 mL, IV Piggyback, Daily, PRN Milk of Magnesia 8% oral suspension, 30 mL, Oral, TID, PRN MiraLax, 17 Gram= 1 Packet, Oral, Daily oxyCODONE, 5 mg= 1 Tab, Oral, Q4H, PRN oxyCODONE, 10 mg= 2 Tab, Oral, Q4H, PRN pantoprazole, 40 mg= 1 Tab, Oral, BID Phenergan, 12.5 mg= 0.5 mL, IV Push, Q6H, PRN potassium bicarbonate 20 mEq oral tablet, effervescent, 20 mEq= 1 Tab, Feeding Tube, Daily, PRN potassium bicarbonate 20 mEq oral tablet, effervescent, 60 mEq= 3 Tab, Feeding Tube, Daily, PRN potassium chloride 10 mEq/50 mL intravenous solution, 10 mEq= 50 mL, IV Piggyback, Daily, PRN potassium chloride 20 mEq oral tablet, extended release, 20 mEq= 1 Tab, Oral, Daily, PRN potassium chloride 20 mEq oral tablet, extended release, 60 mEq= 3 Tab, Oral, Daily, PRN simethicone, 80 mg= 1 Tab, Oral, Q6H, PRN sodium phosphate sodium phosphate Tylenol, 650 mg= 2 Tab, Oral, Q4H venlafaxine, 150 mg= 1 Cap, Oral, Daily Zofran, 4 mg= 2 mL, IV Push, Q4H, PRN Zofran, 4 mg= 2 mL, IV Push, Q4H, PRN Lab Results Test Name Test Result Date/Time Sodium Level 135 mmol/L (Low) 08/14/2021 03:24 EST Potassium Level 4.3 mmol/L 08/14/2021 03:24 EST Chloride Level 102 mmol/L 08/14/2021 03:24 EST Carbon Dioxide Level 27 mmol/L 08/14/2021 03:24 EST Anion Gap 10 08/14/2021 03:24 EST Glucose Level 120 mg/dL (High) 08/14/2021 03:24 EST Blood Urea Nitrogen 13 mg/dL 08/14/2021 03:24 EST Creatinine Level 0.60 mg/dL 08/14/2021 03:24 EST eGFR >60 mL/min/1.73m2 08/14/2021 03:24 EST eGFR NonAfrican >60 mL/min/1.73m2 08/14/2021 03:24 EST Bun/Creatinine 21.7 (High) 08/14/2021 03:24 EST Calcium Level 8.6 mg/dL 08/14/2021 03:24 EST WBC 11.1 K/uL (High) 08/14/2021 03:24 EST RBC 3.40 Million/uL (Low) 08/14/2021 03:24 EST Hgb 10.1 g/dL (Low) 08/14/2021 03:24 EST Hct 31.7 % (Low) 08/14/2021 03:24 EST MCV 93.2 fL 08/14/2021 03:24 EST MCH 29.7 pg 08/14/2021 03:24 EST MCHC 31.9 Gram/dL (Low) 08/14/2021 03:24 EST Platelet Count 267 K/uL 08/14/2021 03:24 EST MPV 8.8 fL (Low) 08/14/2021 03:24 EST RDW 13.4 % 08/14/2021 03:24 EST Neut % 58.7 % 08/14/2021 03:24 EST Neut # 6.52 K/uL (High) 08/14/2021 03:24 EST Lymph % 29.8 % 08/14/2021 03:24 EST Lymph # 3.32 x10(3)/uL 08/14/2021 03:24 EST Carson % 8.1 % 08/14/2021 03:24 EST Carson # 0.90 K/uL 08/14/2021 03:24 EST Eos % 2.4 % 08/14/2021 03:24 EST Eos # 0.27 x10(3)/uL 08/14/2021 03:24 EST Baso % 0.5 % 08/14/2021 03:24 EST Baso # 0.06 x10(3)/uL 08/14/2021 03:24 EST Slide Review No 08/14/2021 03:24 EST IG# 0.06 x10(3)/uL (High) 08/14/2021 03:24 EST IG% 0.50 % 08/14/2021 03:24 EST documented in this encounter Plan of Treatment Not on file documented as of this encounter Visit Diagnoses Not on filedocumented in this encounter
--- OUTSIDE RECORDS SUMMARY | 2025-04-08 13:58 | XMS_ITS | Encounter Summary ---
Author Organization [employer] ([place], [place], [place], [place]) Address [address] [place] [address] Care Team Providers Care Sales Enablement Lead Name Role Phone Unavailable Primary Care Provider Unavailabl e Encounter Details Date Type Department Care Team (Late st Contact Info) Description 08/14/[address] 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 [place] [address] SERA CALI :1970 Visit Time:08/11/2021 Your Visit Summary Your Care Team Admitting Physician - CARLOS DAMON MD-TE Attending Physician - CARLOS DAMON MD-U Primary Care Physician - NERI RODRIGUEZ (REF)MD-[facility] Referring Physician - RUTH, NOT LISTED Your Diagnosis Other spondylosis with myelopathy, lumbar region, Other spondylosis with myelopathy, lumbar region, Other spondylosis with myelopathy, lumbar region These Are Your Goals Patient Discharge Goal Patient Discharge Goal: Home health care Discharge Vitals Temperature 37.5 ??C Heart Rate (Monitored) 88 Blood Pressure 121/56 What to do next Instructions From Your Care Team Home Health Services: [facility]--[phone] Medical Equipment for Home Use: [facility]--[phone] Diet after Discharge: Resume usual diet as tolerated Activity after Discharge: As tolerated, No strenuous activity Lifting Restrictions: No heavy lifting over 10 pounds Weight Bearing: Full weight bearing Driving after Discharge: Do not drive Showering/Bathing: May shower, No tub bathing, soaking or swimming; do not allow water to hit directly on incision Notify Provider of: Fever above 101 for 24 hours; increase in pain, redness, swelling, drainage or foul odor at incision site Wound/Incision Care after Discharge: Keep operative site/wound site clean and dry, Change dressing with dry dressing daily and as needed; May leave open to air after third day if no drainage present Discharge Activity: Discharge Activity: Activity as tolerated Diet: Discharge Diet: Resume usual diet as tolerated Follow-Up Appointments Follow Up with CARLOS DAMON When 09/18/2021 10:45 AM EST Comments Please go to the [facility] at 9:45 for x-rays before going to your appointment Where: [address] [place] [address] [phone]- Business (1) Follow Up with CARLOS DAMON When 08/28/2021 02:00 PM EST Comments Appointment has been made for staple/suture removal Where: [address] [place] [address] [phone]- [facility] (1) Medications What How Much When Instructions Next Dose acetaminophen-oxyCODONE (Percocet 7.5/ 325 oral tablet) 1 Tablet(s) Oral Every 6 Hours as needed for for pain Not to exceed 3000 mg acetaminophen per day from ALL Sources cyclobenzaprine (cyclobenzaprine 10 mg oral tablet) 1 Tablet(s) Oral Three Times A Day as needed for as needed for muscle spasms tonight acetaminophen (Tylenol) 1,500 Milligram(s) Oral Two Times A Day as needed for as needed for pain as needed buPROPion 300 Milligram(s) Oral Every Day in am cyanocobalamin (Vitamin B12) IntraMuscular Every 4 Weeks as scheduled pantoprazole 40 Milligram(s) Oral Two Times A Day tonight venlafaxine 150 Milligram(s) Oral Every Day in am Take your medications faithfully. Do NOT skip medication. Do NOT stop taking medications without the direction of a physician. Carry a list of your medications with you at all times, and take this medication list with you to your first follow up visit. Report any side effects. Avoid herbal remedies unless discussed with your physician. As part of your treatment plan, your physician may have prescribed a limited course of a controlled substance. This medication may be given to help people with moderate or severe pain or for other medical conditions, but there are risks involved with treatment. Common side effects may include nausea, constipation, drowsiness, sweating, itching, dry mouth, and rash. More serious side effects may include cognitive and motor impairment, like problems with thinking, concentrating, alertness, and movement (e.g. slowed reflexes), and driving and operating heavy machinery can be dangerous. It is important for you to talk to your physician if you have these side effects or questions. These controlled substances can produce physical dependence and be habit-forming if taken for an extended period of time, which means that the body has gotten used to them and may experience withdrawal symptoms if they are abruptly stopped. Withdrawal symptoms can include runny nose, sweating, goose bumps, diarrhea, abdominal cramping, rapid heartbeat, difficulty sleeping, and nervousness. Please dispose of unused and medications per your retail pharmacy guidance. Allergies No Known Medication Allergies Immunizations This Visit SARS-CoV-2 (COVID-19) mRNA-1273 vaccine 01/07/2021 SARS-CoV-2 (COVID-19) mRNA-1273 vaccine 12/16/2020 Education Materials Spinal Fusion, Adult, Care After This sheet [...] these instructions at home: Medicines ??? Take myzb-wuw-sbygdvt and prescription medicines only as told by [...] keep your urine pale yellow. ? Take fzoy-agi-vmmnewz or prescription medicines. ? Eat foods that [...] Leave the ice on for 20 minutes, 2???3 times a day. Incision care ??? Follow instructions from your health care provider about how to take care of your incision. Make sure you: ? Wash your hands with soap and water for at least 20 seconds before and after you change your bandage (dressing). If soap and water are not available, use hand commercial leasing agent. ? Change your dressing as told by [...] Get up to take short walks every 1???2 hours. This is important to improve blood [...] incision area. ??? Apply ice and take zspj-pxf-suatqhd and prescription medicines as told by your health care provider. ??? Rest and protect your back as told by your health care provider. Do not twist or bend at the waist. Get up to take short walks every 1???2 hours. This information is not intended to replace advice given to you by your health care provider. Make sure you discuss any questions you have with your health care provider. Document Revised: 07/11/2020 Document Reviewed: 07/11/2020 [employer] Patient Education ?? 2020 [employer]. acetaminophen and oxycodone (a SEET a MIN oh fen and OX i KOE done) Endocet 10/325, Endocet 2.5/325, Endocet 5/325, Endocet 7.5/325, Nalocet, Percocet, Primlev What is the most important information I should know about acetaminophen and oxycodone? MISUSE OF OPIOID MEDICINE CAN CAUSE ADDICTION, OVERDOSE, OR . Keep the medication in a place where others cannot get to it. Taking opioid medicine during may cause life-threatening withdrawal symptoms in the . Fatal side effects can occur if you use opioid medicine with alcohol, or with other drugs that cause drowsiness or slow your breathing. Stop taking this medicine and call your doctor right away if you have skin redness or a rash that spreads and causes blistering and peeling. What is acetaminophen and oxycodone? Acetaminophen and oxycodone is a combination medicine used to relieve moderate to severe pain. Acetaminophen and oxycodone contains an opioide medicine and may be habit-forming. Acetaminophen and oxycodone may also be used for purposes not listed in this medication guide. What should I discuss with my healthcare provider before taking acetaminophen and oxycodone? You should not use this medicine if you are allergic to acetaminophen or oxycodone, or if you have: ?? severe asthma or breathing problems; or ?? a blockage in your stomach or intestines. Tell your doctor if you have ever had: ?? breathing problems, sleep apnea; ?? liver disease; ?? a drug or alcohol addiction; ?? kidney disease; ?? a head injury or seizures; ?? urination problems; or ?? problems with your thyroid, pancreas, or gallbladder. If you use opioid medicine while you are , your baby could become dependent on the drug. This can cause life-threatening withdrawal symptoms in the baby after it is born. Babies born dependent on opioids may need medical treatment for several weeks. Ask a doctor before using opioid medicine if you are . Tell your doctor if you notice severe drowsiness or slow breathing in the nursing baby. How should I take acetaminophen and oxycodone? Follow all directions on your prescription label. Never take this medicine in larger amounts, or for longer than prescribed. An overdose can damage your liver or cause . Tell your doctor if you feel an increased urge to use more of this medicine. Never share opioid medicine with another person, especially someone with a history of drug abuse or addiction. MISUSE CAN CAUSE ADDICTION, OVERDOSE, OR . Keep the medicine in a place where others cannot get to it. Selling or giving away opioid medicine is against the law. Measure liquid medicine carefully. Use the dosing syringe provided, or use a medicine dose-measuring device (not a kitchen spoon). If you need surgery or medical tests, tell the doctor ahead of time that you are using this medicine. You should not stop using this medicine suddenly. Follow your doctor's instructions about tapering your dose. Store at room temperature away from moisture and heat. Keep track of your medicine. You should be aware if anyone is using it improperly or without a prescription. Do not keep leftover opioid medication. Just one dose can cause in someone using this medicine accidentally or improperly. Ask your pharmacist where to locate a drug take-back disposal program. If there is no take-back program, flush the unused medicine down the toilet. What happens if I miss a dose? Since this medicine is used for pain, you are not likely to miss a dose. Skip any missed dose if it is almost time for your next dose. Do not use two doses at one time. What happens if I overdose? Seek emergency medical attention or call the Poison Help line at . An overdose of this medicine can be fatal, especially in a child or other person using the medicine without a prescription. Overdose symptoms may include nausea, vomiting, sweating, severe drowsiness, pinpoint pupils, slow breathing, or no breathing. Your doctor may recommend you get naloxone (a medicine to reverse an opioid overdose) and keep it with you at all times. A person caring for you can give the naloxone if you stop breathing or don't wake up. Your caregiver must still get emergency medical help and may need to perform CPR (cardiopulmonary resuscitation) on you while waiting for help to arrive. Anyone can buy naloxone from a pharmacy or local health department. Make sure any person caring for you knows where you keep naloxone and how to use it. What should I avoid while taking acetaminophen and oxycodone? Avoid driving or operating machinery until you know how this medicine will affect you. Dizziness or drowsiness can cause falls, accidents, or severe injuries. Do not drink alcohol. Dangerous side effects or could occur. Ask a doctor or pharmacist before using any other medicine that may contain acetaminophen (sometimes abbreviated as APAP). Taking certain medications together can lead to a fatal overdose. What are the possible side effects of acetaminophen and oxycodone? Get emergency medical help if you have signs of an allergic reaction: hives; difficulty breathing; swelling of your face, lips, tongue, or throat. Opioid medicine can slow or stop your breathing, and may occur. A person caring for you should give naloxone and/or seek emergency medical attention if you have slow breathing with long pauses, blue colored lips, or if you are hard to wake up. In rare cases, acetaminophen may cause a severe skin reaction that can be fatal. This could occur even if you have taken acetaminophen in the past and had no reaction. Stop taking this medicine and call your doctor right away if you have skin redness or a rash that spreads and causes blistering and peeling. Call your doctor at once if you have: ?? noisy breathing, sighing, shallow breathing, breathing that stops; ?? a light-headed feeling, like you might pass out; ?? weakness, tiredness, fever, unusual bruising or bleeding; ?? confusion, unusual thoughts or behavior; ?? problems with urination; ?? liver problems--nausea, upper stomach pain, tiredness, loss of appetite, dark urine, emily-colored stools, jaundice (yellowing of the skin or eyes); ?? low cortisol levels-- nausea, vomiting, loss of appetite, dizziness, worsening tiredness or weakness; or ?? high levels of serotonin in the body--agitation, hallucinations, fever, sweating, shivering, fast heart rate, muscle stiffness, twitching, loss of coordination, nausea, vomiting, diarrhea. Serious breathing problems may be more likely in older adults and in those who are debilitated or have wasting syndrome or chronic breathing disorders. Common side effects include: ?? dizziness, drowsiness, feeling tired; ?? feelings of extreme happiness or sadness; ?? nausea, vomiting, stomach pain; ?? constipation; or ?? headache. This is not a complete list of side effects and others may occur. Call your doctor for medical advice about side effects. You may report side effects to FDA at 4-022-HZJ-6913. What other drugs will affect acetaminophen and oxycodone? You may have breathing problems or withdrawal symptoms if you start or stop taking certain other medicines. Tell your doctor if you also use an antibiotic, antifungal medication, heart or blood pressure medication, seizure medication, or medicine to treat HIV or hepatitis C. Opioid medication can interact with many other drugs and cause dangerous side effects or . Be sure your doctor knows if you also use: ?? cold or allergy medicines, bronchodilator asthma/COPD medication, or a diuretic ('water pill'); ?? medicines for motion sickness, irritable bowel syndrome, or overactive bladder; ?? other opioids--opioid pain medicine or prescription cough medicine; ?? a sedative like Valium--diazepam, alprazolam, lorazepam, Xanax, Klonopin, Versed, and others; ?? drugs that make you sleepy or slow your breathing--a sleeping pill, muscle relaxer, medicine to treat mood disorders or mental illness; ?? drugs that affect serotonin levels in your body--a stimulant, or medicine for depression, Parkinson's disease, migraine headaches, serious infections, or nausea and vomiting. This list is not complete. Other drugs may affect acetaminophen and oxycodone, including prescription and dibf-pus-oykdtmt medicines, vitamins, and herbal products. Not all possible interactions are listed here. Where can I get more information? Your doctor or pharmacist can provide more information about acetaminophen and oxycodone. Remember, keep this and all other medicines out of the reach of children, never share your medicines with others, and use this medication only for the indication prescribed. Every effort has been made to ensure that the information provided by [employer]. ('[employer]') is accurate, up-to-date, and complete, but no guarantee is made to that effect. Drug information contained herein may be time sensitive. [employer] information has been compiled for use by healthcare practitioners and consumers in the [place] and therefore [employer] does not warrant that uses outside of the [place] are appropriate, unless specifically indicated otherwise. [employer]'s drug information does not endorse drugs, diagnose patients or recommend therapy. [employer] drug information is an informational resource designed to assist licensed healthcare practitioners in caring for their patients and/or to serve consumers viewing this service as a supplement to, and not a substitute for, the expertise, skill, knowledge and judgment of healthcare practitioners. The absence of a warning for a given drug or drug combination in no way should be construed to indicate that the drug or drug combination is safe, effective or appropriate for any given patient. [employer] does not assume any responsibility for any aspect of healthcare administered with the aid of information [employer] provides. The information contained herein is not intended to cover all possible uses, directions, precautions, warnings, drug interactions, allergic reactions, or adverse effects. If you have questions about the drugs you are taking, check with your doctor, nurse or pharmacist. Copyright 8337-0563 [employer]. Version: 20.03. Revision Date: 10/14/2020. cyclobenzaprine (jaci pantoja) Amrix, Comfort Pac with Cyclobenzaprine, Fexmid What is the most important information I should know about cyclobenzaprine? You should not use cyclobenzaprine if you have a thyroid disorder, heart block, congestive heart failure, a heart rhythm disorder, or you have recently had a heart attack. Do not use cyclobenzaprine if you have taken an MAO inhibitor in the past 14 days, such as isocarboxazid, linezolid, phenelzine, rasagiline, selegiline, or tranylcypromine. What is cyclobenzaprine? Cyclobenzaprine is a muscle relaxant. It works by blocking nerve impulses (or pain sensations) that are sent to your brain. Cyclobenzaprine is used together with rest and physical therapy to relieve muscle spasms caused by painful conditions such as an injury. Cyclobenzaprine may also be used for purposes not listed in this medication guide. What should I discuss with my healthcare provider before taking cyclobenzaprine? You should not use cyclobenzaprine if you are allergic to it, or if you have: ?? a thyroid disorder; ?? heart block, heart rhythm disorder, congestive heart failure; or ?? if you have recently had a heart attack. Cyclobenzaprine is not approved for use by anyone younger than 15 years old. Do not use cyclobenzaprine if you have taken an MAO inhibitor in the past 14 days. A dangerous drug interaction could occur. MAO inhibitors include isocarboxazid, linezolid, phenelzine, rasagiline, selegiline, and tranylcypromine. Some medicines can interact with cyclobenzaprine and cause a serious condition called serotonin syndrome. Be sure your doctor knows if you also take stimulant medicine, opioid medicine, herbal products, or medicine for depression, mental illness, Parkinson's disease, migraine headaches, serious infections, or prevention of nausea and vomiting. Ask your doctor before making any changes in how or when you take your medications. Tell your doctor if you have ever had: ?? liver disease; ?? glaucoma; ?? enlarged prostate; or ?? problems with urination. It is not known whether this medicine will harm an unborn baby. Tell your doctor if you are or plan to become . It may not be safe to breast-feed while using this medicine. Ask your doctor about any risk. Older adults may be more sensitive to the effects of this medicine. How should I take cyclobenzaprine? Follow all directions on your prescription label and read all medication guides or instruction sheets. Your doctor may occasionally change your dose. Use the medicine exactly as directed. Cyclobenzaprine is usually taken once daily for only 2 or 3 weeks. Follow your doctor's dosing instructions very carefully. Swallow the capsule whole and do not crush, chew, break, or open it. Take the medicine at the same time each day. Call your doctor if your symptoms do not improve after 3 weeks, or if they get worse. Store at room temperature away from moisture, heat, and light. What happens if I miss a dose? Take the medicine as soon as you can, but skip the missed dose if it is almost time for your next dose. Do not take two doses at one time. What happens if I overdose? Seek emergency medical attention or call the Poison Help line at . An overdose of cyclobenzaprine can be fatal. Overdose symptoms may include severe drowsiness, vomiting, fast heartbeats, tremors, agitation, or hallucinations. What should I avoid while taking cyclobenzaprine? Avoid driving or hazardous activity until you know how this medicine will affect you. Your reactions could be impaired. Avoid drinking alcohol. Dangerous side effects could occur. What are the possible side effects of cyclobenzaprine? Get emergency medical help if you have signs of an allergic reaction: hives; difficult breathing; swelling of your face, lips, tongue, or throat. Stop using cyclobenzaprine and call your doctor at once if you have: ?? fast or irregular heartbeats; ?? chest pain or pressure, pain spreading to your jaw or shoulder; or ?? sudden numbness or weakness (especially on one side of the body), slurred speech, balance problems. Seek medical attention right away if you have symptoms of serotonin syndrome, such as: agitation, hallucinations, fever, sweating, shivering, fast heart rate, muscle stiffness, twitching, loss of coordination, nausea, vomiting, or diarrhea. Serious side effects may be more likely in older adults. Common side effects may include: ?? drowsiness, tiredness; ?? headache, dizziness; ?? dry mouth; or ?? upset stomach, nausea, constipation. This is not a complete list of side effects and others may occur. Call your doctor for medical advice about side effects. You may report side effects to FDA at 9-584-BNF-0243. What other drugs will affect cyclobenzaprine? Using cyclobenzaprine with other drugs that make you drowsy can worsen this effect. Ask your doctor before using opioid medication, a sleeping pill, a muscle relaxer, or medicine for anxiety or seizures. Tell your doctor about all your other medicines, especially: ?? bupropion (Zyban, for smoking cessation); ?? meperidine; ?? tramadol; ?? verapamil; ?? cold or allergy medicine that contains an antihistamine (Benadryl and others); ?? medicine to treat Parkinson's disease; ?? medicine to treat excess stomach acid, stomach ulcer, motion sickness, or irritable bowel syndrome; ?? medicine to treat overactive bladder; or ?? bronchodilator asthma medication. This list is not complete. Other drugs may affect cyclobenzaprine, including prescription and uwft-pmp-zshpgxu medicines, vitamins, and herbal products. Not all possible drug interactions are listed here. Where can I get more information? Your pharmacist can provide more information about cyclobenzaprine. Remember, keep this and all other medicines out of the reach of children, never share your medicines with others, and use this medication only for the indication prescribed. Every effort has been made to ensure that the information provided by [employer]. ('[employer]') is accurate, up-to-date, and complete, but no guarantee is made to that effect. Drug information contained herein may be time sensitive. [employer] information has been compiled for use by healthcare practitioners and consumers in the [place] and therefore [employer] does not warrant that uses outside of the [place] are appropriate, unless specifically indicated otherwise. [employer] drug information does not endorse drugs, diagnose patients or recommend therapy. [employer] drug information is an informational resource designed to assist licensed healthcare practitioners in caring for their patients and/or to serve consumers viewing this service as a supplement to, and not a substitute for, the expertise, skill, knowledge and judgment of healthcare practitioners. The absence of a warning for a given drug or drug combination in no way should be construed to indicate that the drug or drug combination is safe, effective or appropriate for any given patient. [employer] does not assume any responsibility for any aspect of healthcare administered with the aid of information [employer] provides. The information contained herein is not intended to cover all possible uses, directions, precautions, warnings, drug interactions, allergic reactions, or adverse effects. If you have questions about the drugs you are taking, check with your doctor, nurse or pharmacist. Copyright 8925-7641 [place]. Version: 5.01. Revision Date: 06/04/2018. Emergency Awareness and Preventative Care [employer] is an EMERGENCY Every Minute Counts Act FAST and Check for these signs: FACE Does the face look uneven? ARM Does one arm drift down? SPEECH Does their speech sound strange? TIME Call at any sign of stroke Stroke Risk Factors Atrial Fibrillation (irregular heartbeat) Diabetes Family history of stroke Heart Disease Heavy alcohol use High Blood Pressure High Cholesterol Physical inactivity and obesity Smoking Cigarette Smoking The facts are clear, cigarette smoking will shorten your life. Smoking can cause many illnesses along the way. As a healthcare provider, we recommend that you stop smoking. Assistance with quitting is available by contacting 3-050-CTXM-NOW. This is a free resource providing counseling, support, and referral. Or you may contact your personal physician. National Suicide Prevention Lifeline: The National Suicide Prevention Lifeline is a national network of local crisis centers that provides free and confidential emotional support to people in suicidal crisis or emotional distress 24 hours a day, 7 days a week. Don't Wait! Stop a Heart Attack Before it Starts What is a heart attack? A heart attack is damage or to a part of the heart from severely decreased or lack of blood flow to the heart. Over time, arteries can become narrow from the buildup of fat and cholesterol, which is called plaque. The plaque can rupture causing a blood clot to form. When the blood clot forms, the artery can become severely narrowed or completely blocked, causing a heart attack. Heart attack is the leading cause of in the [place]. 85% of muscle damage occurs within the first 2 hours. Delay in the recognition of heart attack symptoms increases the chances of . Know the early symptoms of a heart attack: Nausea Feeling of fullness in chest Jaw Pain Pain that travels down one or both arms Fatigue/being tired Anxiety Back Pain Chest pressure, squeezing, or discomfort Shortness of breath Sweating, or a cold sweat Feeling of impending doom There are unusual signs of a heart attack, too! Women, the elderly, and diabetics may present with atypical symptoms: Fainting/dizziness Weakness Confusion Risk Factors for a Heart Attack Some heart disease risk factors, such as age and family history, cannot be changed. Others, like smoking and lack of exercise, can be changed. Smoking High Cholesterol High Blood Pressure Family History Obesity Age Gender (Males are at higher risk) Lack of Exercise Diabetes Diet Stress Excessive Alcohol Intake If you or someone you know is experiencing the signs and symptoms of a heart attack, DON???T DELAY. Call immediately and seek help. If someone collapses, perform CPR! Do not attempt to drive if you are having symptoms of heart attack. Hands-Only CPR Why Hands-Only CPR? Hands-Only CPR has been shown to be as effective as conventional CPR for cardiac arrests that occur outside of a hospital. Survival depends on immediately receiving CPR from someone nearby. How do you perform Hands-Only CPR? There are two easy steps: Call if you see a teen or adult collapse Push hard and fast in the center of the chest at a beat of 100 beats per minute. Save a life! 4 WAYS TO GET AHEAD OF SEPSIS SEPSIS is a MEDICAL EMERGENCY. Time matters! Infections put you and your family at risk for a life-threatening condition called sepsis. Sepsis is the body's extreme response to an infection. It is life-threatening, and without timely treatment, sepsis can rapidly lead to tissue damage, organ failure, and . Sepsis happens when an infection you already have-in your skin, lungs, urinary tract or somewhere else-triggers a chain reaction throughout your body. 1 PREVENT INFECTIONS Take good care of chronic conditions. Talk to your doctor about getting the recommended vaccines. 2 PRACTICE GOOD HYGIENE Wash your hands frequently. Keep cuts or open sores clean and covered until they are healed. 3 KNOW THE SYMPTOMS Confusion or disorientation Shortness of breath High heart rate Fever, shivering, or feeling very cold Extreme pain or discomfort Clammy or sweaty skin 4 ACT FAST Get medical care IMMEDIATELY if you suspect sepsis or if you have an infection that is not getting better or is getting worse. To learn more about sepsis and how to prevent infections, visit www.cdc.gov/sepsis. Test Results Laboratory or Other Results This Visit (last charted value for your 08/11/2021 visit) Hematology 08/14/2021 3:24 AM WBC: 11.1 K/uL -- Normal range between ( 4.5 and 10.5 ) RBC: 3.40 Million/uL -- Normal range between ( 3.93 and 5.22 ) Hct: 31.7 % -- Normal range between ( 34.1 and 44.9 ) Hgb: 10.1 g/dL -- Normal range between ( 11.2 and 15.7 ) Platelet Count: 267 K/uL -- Normal range between ( 163 and 369 ) MCH: 29.7 pg -- Normal range between ( 25.6 and 32.2 ) MCHC: 31.9 Gram/dL -- Normal range between ( 32.2 and 36.5 ) MCV: 93.2 fL -- Normal range between ( 79.0 and 94.8 ) Slide Review: No Eos %: 2.4 % -- Normal range between ( 0.0 and 7.0 ) [place] #: 0.90 K/uL -- Normal range between ( 0.16 and 1.00 ) Eos #: 0.27 x10(3)/uL -- Normal range between ( 0.00 and 0.80 ) [place] %: 8.1 % -- Normal range between ( 3.0 and 9.0 ) Baso %: 0.5 % -- Normal range between ( 0.0 and 1.5 ) Baso #: 0.06 x10(3)/uL -- Normal range between ( 0.00 and 0.20 ) RDW: 13.4 % -- Normal range between ( 11.7 and 14.9 ) Neut %: 58.7 % -- Normal range between ( 34.0 and 71.0 ) Neut #: 6.52 K/uL -- Normal range between ( 1.56 and 6.13 ) Lymph %: 29.8 % -- Normal range between ( 19.3 and 53.1 ) Lymph #: 3.32 x10(3)/uL -- Normal range between ( 1.00 and 3.90 ) MPV: 8.8 fL -- Normal range between ( 9.4 and 12.4 ) IG#: 0.06 x10(3)/uL -- Normal range between ( 0.00 and 0.05 ) IG%: 0.50 % -- Normal range between ( 0.00 and 0.60 ) Urinalysis 08/09/2021 11:23 AM Urine Nitrite: Negative Urine Leukocyte Esterase: Negative Urine Appearance: Clear Urine Glucose Dipstick: Negative Urine Blood Dipstick: Negative Urine Type: U CleanCatch Urine Urobilinogen Dipstick: 0.2 EU/dL Urine Protein Dipstick: Negative Urine Color: Yellow Ur WBC: None Seen /HPF Urine Ketones Dipstick: Negative Urine pH Dipstick: 6.0 -- Normal range between ( 6.0 and 8.0 ) Urine Bilirubin Dipstick: Negative Urine Specific [place]: *1.029 -- Normal range between ( 1.005 and 1.030 ) Microbiology 08/09/2021 10:45 AM SARS-CoV-2 (COVID19 PCR): Negative Blood Bank 08/11/2021 7:21 AM ABO/Rh (ECHO): A POS Antibody Screen: Negative ABSC 08/09/2021 11:23 AM ABO/Rh Repeat: A POS General Chemistry 08/14/2021 3:24 AM Creatinine Level: 0.60 mg/dL -- Normal range between ( 0.55 and 1.02 ) Sodium Level: 135 mmol/L -- Normal range between ( 136 and 146 ) Potassium Level: 4.3 mmol/L -- Normal range between ( 3.5 and 5.1 ) Chloride Level: 102 mmol/L -- Normal range between ( 102 and 112 ) Carbon Dioxide Level: 27 mmol/L -- Normal range between ( 21 and 32 ) Anion Gap: 10 -- Normal range between ( 9 and 20 ) Bun/Creatinine: 21.7 -- Normal range between ( 8.0 and 20.0 ) Calcium Level: 8.6 mg/dL -- Normal range between ( 8.4 and 10.1 ) eGFR : >60 mL/min/1.73m2 eGFR NonAfrican: >60 mL/min/1.73m2 Glucose Level: 120 mg/dL -- Normal range between ( 74 and 106 ) Blood Urea Nitrogen: 13 mg/dL -- Normal range between ( 7 and 22 ) Diagnostic Radiology 08/11/2021 11:30 AM CR Fluoro in OR: CR Fluoro in OR Patient Name:SERA CALI I have received and understand this information and was given the opportunity to ask questions. Patient/Reservation Clerk Name: Patient/Reservation Clerk Signature: Relationship to Patient: Clinician/Hospital Reservation Clerk Signature: Date: Electronically signed by Yolanda, [facility] Conversion Room Maid [place] at 12/28/2022 7:55 PM CDT documented in this encounter Plan of Treatment Not on file documented as of this encounter Visit Diagnoses Not on filedocumented in this encounter
--- OUTSIDE RECORDS SUMMARY | 2025-04-08 13:58 | XMS_ITS | Encounter Summary ---
Author Organization [employer] ([place], [place], [place], [place]) Address [address] [place] [address] Care Team Providers Care Digital Marketing Analyst Name Role Phone Unavailable Primary Care Provider Unavailabl e Encounter Details Date Type Department Care Team (Late st Contact Info) Description 08/11/2021 Transcribed Document [facility] [place] [facility] [place] [address] ProviderMaxine MD [address] [place] [address] Social History Tobacco Use Types [...] - Historical ProviderMD - 08/11/2021 9:09 AM BUILDING CUSTODIAL SUPERVISOR [facility] Main OR PACU Summary Primary Physician: CARLOS DAMON MD-SNU Finalized Date/Time: 08/19/21 12:26:49 Pt. Name: SERA CALI /Sex: 1970 Female Med Rec #: [id number] Physician: CARLOS DAMON MD-SNU Financial #: [id number] Pt. Type: I Room/Bed: 649/1 Admit/Disch: 08/11/21 06:40:00 - 08/14/21 17:42:00 Institution: [facility] Main OR PACU I Case Times Entry 1 In PACU I 08/11/21 12:09:00 Ready for PACU 08/11/21 12:45:00 Discharge Discharge from PACU 08/11/21 13:00:00 I Last Modified By: Sowmya King RN 08/11/21 13:21:16 [facility] Main OR PACU I Case Times Audit 08/11/21 13:21:16 Laborer Pullet Farm: [email or web address] Modifier: TAMSORNM <+> 1 Ready for PACU Discharge <+> 1 Discharge from PACU I [facility] Main OR PACU Acuity Entry 1 Start Time 08/11/21 12:45:00 Stop Time 08/11/21 13:00:00 Acuity Level [facility] PACU Acuity I Last Modified By: Abby Escobedo, Nurse Bearingizer 08/19/21 12:26:42 Finalized By: Abby Escobedo, Nurse Manager [employer] Signatures Signed By: Sowmya King RN 08/11/21 13:22 Abby Escobedo, Nurse Bearingizer 08/19/21 12:26 Unfinalized History Date/Time Username Reason for Unfinalizing Freetext Reason for Unfinalizing 08/19/21 12:26 [id number] Correct Billing Electronically signed by Yolanda [facility] Conversion Sewing Department Supervisor Cerner at 12/28/2022 8:02 PM CDT documented in this encounter Plan of Treatment Not on file documented as of this encounter Visit Diagnoses Not on filedocumented in this encounter
--- OUTSIDE RECORDS SUMMARY | 2025-04-08 13:58 | XMS_ITS | Clinical Summary ---
Author Organization [facility] Address [address] [place] [id number] Phone Care Team Providers Care Survey Research Manager Name Role Phone Unavailable Primary Care Provider Unavailabl e Allergies No known active allergies Medications acetaminophen (TYLENOL) 500 mg Oral Tablet Take 1,000 mg by mouth every 8 hours. 11/15/2022 Active albuterol (PROVENTIL HFA;VENTOLIN HFA) 90 mcg/actuation Inhl HFA Aerosol Inhaler Inhale 2 Puffs into the lungs. 11/15/2022 Active budesonide-formo teroL (SYMBICORT) 160-4.5 mcg/actuation Inhl HFA Aerosol Inhaler Inhale 2 Puffs into the lungs. Active cetirizine (ZYRTEC) 10 mg Oral Tablet Take 10 mg by mouth. 12/12/2021 Active cholecalciferol, vitamin D3, 25 mcg (1,000 unit) Oral Tablet Take by mouth daily. 03/27/2022 Active cyanocobalamin 1,000 mcg/mL Inj Solution 1,000 mcg every 30 days. 08/18/2021 Active cyclobenzaprine (FLEXERIL) 5 mg Oral Tablet Take 5 mg by mouth 2 times daily as needed. 09/24/2022 Active famotidine (PEPCID) 40 mg Oral Tablet Take 40 mg by mouth. 01/28/2023 Active fluticasone propionate (FLONASE) 50 mcg/actuation Nasl [place], Suspension 50 mcg. 02/23/2022 Active gabapentin (NEURONTIN) 100 mg Oral Capsule Take 100 mg by mouth. 11/15/2022 Active HYDROcodone-acet aminophen (NORCO) 7.5-325 mg Oral Tablet 1 Tablet. 03/21/2023 Acti ve levocetirizine (XYZAL) 5 mg Oral Tablet Take 1 tablet every day by oral route. Active losartan (COZAAR) 100 mg Oral Tablet Take 100 mg by mouth daily. 09/28/2022 Active montelukast (SINGULAIR) 10 mg Oral Tablet Take 10 mg by mouth daily. 04/06/2022 Active traMADoL (ULTRAM) 50 mg Oral Tablet 50 mg. 12/12/2022 Active varenicline (CHANTIX) 1 mg Oral Tablet Take 1 mg by mouth. Active venlafaxine (EFFEXOR-XR) 150 mg Oral Capsule, Sust. Release 24 hr Take 150 mg by mouth nightly. 08/18/2021 Active rosuvastatin (CRESTOR) 40 mg Oral Tablet Take 40 mg by mouth daily. 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 Social History Tobacco Use Types Packs/Day Years Used Date Smoking Tobacco: Never Assessed Comments Unknown Sex and Gender Information Value Date Recorded Sex Assigned at Not on file Legal Sex Female 2:14 PM EDT Gender Identity Not on file Sexual Orientation Not on file Obstetrics History Last Filed Vital Signs Vital Sign Reading Time Taken Comments Blood Pressure 118/74 08/07/2023 10:34 AM EST Pulse 89 08/07/2023 10:34 AM EST Temperature - - Respiratory Rate - - Oxygen Saturation 96% 08/07/2023 10:34 AM EST Inhaled Oxygen Concentration - - Weight 108 kg (238 lb 3.2 oz) 08/07/2023 10:34 A M EST Height - - Body Mass Index - - Plan of Treatment Health Maintenance Due Date Last Done Comments Annual Wellness Exam 1974 Hepatitis B Vaccine (1 of 3 - 19+ 3-dose series) 1990 Cervical Cancer Screening 1992 Pap Smear 1992 HPV/Pap Cotest 2001 Breast Cancer Screening 2011 Cologuard 2016 Colon Cancer Screening 2016 Colonoscopy 2016 FIT 2016 Sigmoidoscopy 2016 Virtual Colonography 2016 Pneumococcal Vaccine 50+ (1 of 1 - PCV) 2021 Zoster (1 of 2) 2021 COVID-19 Vaccine (4 - 2023- season) 2024 06/29/2022, 12/16/2020, 11/18/2020 Influenza Vaccine (#1) 2025 , 05/31/2021, 06/09/2018, Additional history exists DTaP/TDaP/Td (2 - Tdap) 06/23/2027 06/23/2017 Meningococcal B Vaccine Aged Out No l onger eligible based on patient's age to complete this topic Insurance
--- OUTSIDE RECORDS SUMMARY | 2025-04-08 13:58 | XMS_ITS | Encounter Summary ---
Author Organization [employer] ([place], [place], [place], [place]) Address [address] [place] [address] Care Team Providers Care Chief Substation Operator Name Role Phone Unavailable Primary Care Provider Unavailabl e Encounter Details Date Type Department Care Team (Late st Contact Info) Description 08/12/2021 Transcribed Document [facility] Neurology - [address] [facility] [address] [place] [address] Carlos Damon MD [address] [place] [address] Social History Tobacco Use Types [...] Conversion Note - Carlos Damon MD - 08/12/2021 1:02 PM EST Patient: SERA CALI Age: 50 years Sex: Female : 1970 Associated Diagnoses: None Author: CARLOS DAMON MD-SNU Subjective Up to chair this morning having breakfast Vitals Signs (last 24 hrs) Last Charted Minimum Maximum Temp 98.5 (AUG 12 03:06) 97.6 (AUG 11 17:35) 98.4 (AUG 11 21:09) Mon HR 66 (AUG 12 09:23) 63 (AUG 12 03:06) 91 (AUG 11 12:25) Resp Rate 16 (AUG 12 09:23) L 9 (AUG 11 12:25) 18 (AUG 11 12:15) SBP 102 (AUG 12 03:06) 98 (AUG 11 21:09) 139 (AUG 11 12:30) DBP L 48 (AUG 12:06) L 43 (AUG 11 21:09) 77 (AUG 11 12:45) MAP 62 (AUG 12 03:06) 57 (AUG 11 21:09) 96 (AUG 11 12:45) SpO2 100 (AUG 12 05:52) L 90 (AUG 11 12:40) 100 (AUG 12 03:06) Physical Exam 5/[address] JENNIFER: 375/24hours Laboratory Values: AUG 12 04:00 138 109 13 / H 122 4.5 25 0.70 \ AUG 12 04:00 \ L 10.1 / H 16.0 290 / L 32.0 \ Radiology Results (Last 48 hours) CR Fluoro in OR (08/11/2021 11:30) Result: FLUOROSCOPY WITH FILMSHISTORY: Back painFluoroscopic guidance was provided under the direction of the clinicalservice for intraoperative procedure. 321 digital spot radiographs wereobtained for lumbar fusion.Fluoroscopy time was 3.44 minutes.IMPRESSION: Please see postoperative report. Images reviewed, interpreted, and dictated by Dr. Aayush Allen.Transcribed by Cm Bo PA-C, R.T. (N), C N M T.I have personally viewed, interpreted and dictated the examination. Ihave read and agree with the above final transcribed report. Assessment s/p L3-iliacs fusion Plan d/c block heparin home tomorrow or saturday documented in this encounter Plan of Treatment Not on file documented as of this encounter Visit Diagnoses Not on filedocumented in this encounter
--- OUTSIDE RECORDS SUMMARY | 2025-04-08 13:58 | XMS_ITS | Encounter Summary ---
Author Organization [employer] ([place], [place], [place], [place]) Address [address] [place] [address] Care Team Providers Care House Director Name Role Phone Unavailable Primary Care Provider Unavailabl e Encounter Details Date Type Department Care Team (Late st Contact Info) Description 08/13/2021 Transcribed Document [facility] [place] [address] [place] [address] ProviderMaxine MD [address] [place] [address] Social History Tobacco Use Types [...] Note - Historical ProviderMD - 08/13/2021 10:00 PM CREW LEADER Pain Assessment Entered On: 08/14/2021 0:50 EST Performed On: 08/14/2021 0:03 EST by MELLY BROWN RN Intervention Information: acetaminophen Performed by MELLY BROWN RN on 08/13/2021 23:03:00 EST acetaminophen,650mg Oral Pain Assessment Pain Assessment : Follow-up assessment Pain Scale Goal : 5 Pain Improved by Intervention : Yes MELLY BROWN RN - 08/14/2021 0:50 EST Electronically signed by Yolanda [facility] Conversion Electrocardiograph Operator Cerner at 12/28/2022 8:05 PM CDT documented in this encounter Plan of Treatment Not on file documented as of this encounter Visit Diagnoses Not on filedocumented in this encounter
--- OUTSIDE RECORDS SUMMARY | 2025-04-08 13:58 | XMS_ITS | Encounter Summary ---
Author Organization [employer] ([place], [place], [place], [place]) Address [address] [place] [address] Care Team Providers Care Dehairing Machine Tender Name Role Phone Unavailable Primary Care Provider Unavailabl e Encounter Details Date Type Department Care Team (Late st Contact Info) Description 08/14/2021 Transcribed Document [facility] [place] [address] [place] [address] ProviderMaxine MD [address] [place] [address] Social History Tobacco Use Types [...] Conversion Note - Historical ProviderMD - 08/14/2021 8:52 AM HOOP COILING MACHINE OPERATOR [facility] Authorization Entered On: 08/14/2021 8:52 EST Performed On: 08/14/2021 8:52 EST by Swathi Yancey Rn-Utilization Review Primary Insurance Authorization Authorization and Policy Numbers : Insurance 1 Health Plan: [facility] Policy Number: [id number] Authorization Number: [id number] Insurance Primary Name : Esperanza [id number] Authorization Status-Primary : Admit approved Authorization Number-Primary : [id number] Number of Days Authorized-Primary : 1 Day(s) Authorized Service Begin Date-Primary : 08/11/2021 EST Authorized Service End Date-Primary : 08/12/2021 EST Authorization Comments-Primary : CLINICAL FGAXED FOR C/S DOS 08/13 [employer] Historical Authorization Comments-Primary : Comment 1: pt is aramis for INPT lumbar fusion posterior 3 level on Saturday08-11-21 per [facility] [place] approved 2 days INPT auth# [id number] (JOSEFINA ALMONTE, Geriatric Social Work Professor 08/09/2021 13:43) Swathi Yancey Rn-Utilization Review - 08/14/2021 8:52 EST Electronically signed by [facility], [facility] Conversion Non Destructive Testing Scientist Cerner at 12/28/2022 7:42 PM CDT documented in this encounter Plan of Treatment Not on file documented as of this encounter Visit Diagnoses Not on filedocumented in this encounter
--- OUTSIDE RECORDS SUMMARY | 2025-04-08 13:58 | XMS_ITS | Encounter Summary ---
Author Organization [employer] ([place], [place], [place], [place]) Address [address] [place] [address] Care Team Providers Care Casino Cashier Name Role Phone Unavailable Primary Care Provider Unavailabl e Encounter Details Date Type Department Care Team (Late st Contact Info) Description 08/13/2021 Transcribed Document [facility] Radiology [address] [place] [address] Silva Merlos MD [facility] [address] [address] Social History Tobacco Use Types [...] Conversion Note - Silva Merlos MD - 08/13/2021 9:19 AM EST Patient: SERA CALI Age: 50 [...] is a 50 yo female admitted to [facility] per Dr. Delgado for an L3-S1 PLIF with possible iliac bolts. Preoperatively patient was found to have advanced spondylolisthesis of the lumbar spine and elected surgical intervention after failing conservative treatment. Patient is followed perioperatively while hospitalized for medical management. Initial visit in PACU -- Denies prior stroke or seizure. Denies CA, CHF or cardiac arrhythmia. Denies DM. Denies [...] mg, Oral, Daily Vitamin B12 , IntraMuscular, [id number] ROS: Constitutional: [No fevers, chills, sweats] very [...] Minimum Maximum Temp H 100.1 (AUG 14 06:) 99.1 (AUG 14 02:51) H 100.2 (AUG 13:03) Mon HR 82 (AUG 14:) 82 (AUG 14:00) 87 (AUG 14 02:51) Resp Rate 15 (AUG 14:) 15 (AUG 14:) 16 (AUG 13 18:00) SBP 119 (AUG 14:) 112 (AUG 13:) 122 (AUG 14 02:51) DBP L 58 (AUG 14:) L 54 (AUG 13:) 88 (AUG 13 18:39) MAP 72 (AUG 14 06:00) 67 (AUG 13:03) 94 (AUG 13 18:39) SpO2 97 (AUG 14 05:36) L 92 (AUG 13 18:39) 97 (AUG 14 05:36) obese white woman in no distress; pleasant, cooperative, good historian; nc/at, eomi, PEERL, pink conjunctiva, moist mucous membranes =expansion b/l without wheezes rales or rhonchi [...] conjunction with Debi Merlos MD Scribed by Winine Silverman documented in this encounter Plan of Treatment Not on file documented as of this encounter Visit Diagnoses Not on filedocumented in this encounter
--- OUTSIDE RECORDS SUMMARY | 2025-04-08 13:58 | XMS_ITS | Encounter Summary ---
Author Organization [employer] ([place], [place], [place], [place]) Address [address] [place] [address] Care Team Providers Care Bone Worker Name Role Phone Unavailable Primary Care Provider Unavailabl e Encounter Details Date Type Department Care Team (Late st Contact Info) Description 08/14/2021 Transcribed Document [facility] [place] [facility] [address] ProviderMaxine MD [address] [place] [address] Social History Tobacco Use Types [...] Conversion Note - Historical ProviderMD - 08/14/2021 12:57 PM YOUTH DEVELOPMENT SPECIALIST Discharge Summary, PT Entered On: 08/14/2021 12:59 EST Performed On: 08/14/2021 12:57 EST by RUKHSANA PRYOR PTA Discharge Summary Discharge Summary Provider Notified : Nursing, Physical Therapy Reason for Discharge : Discharge order Discharged to, Therapy : Home, with home health (Comment: S1 [RUKHSANA PRYOR PTA - 08/14/2021 12:57 EST] ) RUKHSANA PRYOR PTA - 08/14/2021 12:57 EST Discharge Summary Comment, PT : pt has discharge orders in from hospital to home with home health, per last PTx on 08/14 - pt min A for supine <> sit, pt ambulated 80' with RWx and min A. PT agrees with written D/C summary. ANGELINE EDWARDS, PT - 08/14/2021 16:09 EST Warehouse Administrator Goals Mobility/Bed Mobility LTG PT Grid Goal #1 Activity : Supine to sit Cues : No cues Assist : Independent, modified Equipment : Bed, hospital Date to Meet : 08/25/2021 EST Goal Status : Not met Comment : with log roll technique RUKHSANA PRYOR PTA - 08/14/2021 12:57 EST Ambulation LTG Grid Goal #1 Device : Walker, front wheel Distance : 250' Cues : No cues Assist : Independent, modified Date to Meet : 08/25/2021 EST Goal Status : Not met RUKHSANA PRYOR PTA - 08/14/2021 12:57 EST Stairs LTG Grid Goal #1 Device : Walker, front wheel Number of Steps : 1 Handrail(s) : No handrails Assist : Independent, modified Date to Meet : 08/25/2021 EST Goal Status : Not met RUKHSANA PRYOR PTA - 08/14/2021 12:57 EST documented in this encounter Plan of Treatment Not on file documented as of this encounter Visit Diagnoses Not on filedocumented in this encounter
--- OUTSIDE RECORDS SUMMARY | 2025-04-08 13:58 | XMS_ITS | Encounter Summary ---
Author Organization [employer] ([place], [place], [place], [place]) Address [address] [place] [address] Care Team Providers Care Game Programer Name Role Phone Unavailable Primary Care Provider Unavailabl e Encounter Details Date Type Department Care Team (Late st Contact Info) Description 08/11/2021 Transcribed Document [facility] [address] ProviderMaxine MD [address] [place] [address] Social History Tobacco Use Types [...] Conversion Note - Historical ProviderMD - 08/11/2021 2:00 AM IRRADIATED FUEL HANDLER Spiritual Care Assessment Entered On: 08/11/2021 7:04 EST Performed On: 08/11/2021 6:40 EST by Hiram Lee Chaplain-Non Cert General Information Initial Visit : Yes Referred by : Other: MPTL Surgery. Ministry Provided to : Patient Spiritual/Emotional Acuity : Medium Spiritual Framework : Integrated, provides strength/resource Quaker Preference : Samaritan Spiritual Leader Requested : No Nondenominational Sacrament of the Sick/Anointing Needed : No Hydro Plant Operator Follow-up Needed : No Hiram Lee Chaplain-Non Cert - 08/11/2021 7:00 EST Spiritual Assessment Patient's Community/Relationship : Strength in patient's life Patient's Sense of Meaning : Strength in patient's life Patient's Concept of God/the Sacred : Strength in patient's life Patient's Sense of Hope : Strength in patient's life Spiritual Assessment Comment/Summary Points : MPTL Surgery. PT's daughter was at bedside. Hydro Plant Operator provided pastoral presence, support, and prayer. Family; boyfriend, daughter & others. Spirital Assessment Comment/Summary Report : SPIRITUAL ASSESSMENT COMMENT/SUMMARY No qualifying data available. Hiram Lee Chaplain-Non Cert - 08/11/2021 7:00 EST Interventions Advance Directive Information Provided : No Emotional Support : Anxiety reduction initiated, Established trust, Hope strengths identified, Relationship strengths identified Spiritual and Quaker : Prayer shared, Spiritual/Quaker support provided Hiram Lee Chaplain-Charlotte Cert - 08/11/2021 7:00 EST documented in this encounter Plan of Treatment Not on file documented as of this encounter Visit Diagnoses Not on filedocumented in this encounter
--- OUTSIDE RECORDS SUMMARY | 2025-04-08 13:58 | XMS_ITS | Encounter Summary ---
Author Organization [employer] ([place], [place], [place], [place]) Address [address] [place] [address] Care Team Providers Care Termite Treater Name Role Phone Unavailable Primary Care Provider Unavailabl e Encounter Details Date Type Department Care Team (Late st Contact Info) Description 08/14/2021 Transcribed Document [facility] Family Medicine [facility] [place] [address] ProviderMaxine MD [address] [place] [address] Social History Tobacco Use Types [...] Conversion Note - Historical ProviderMD - 08/14/2021 5:16 PM IOS PROGRAMMER Spiritual Care Assessment Entered On: 08/14/2021 18:20 EST Performed On: 08/14/2021 17:16 EST by Lázaro Oquendo Chaplain General Information Referred by : Uniformer initiated Ministry Provided to : Patient Jehovah'S Witness Preference : Buddhist Lázaro Oquendo Chaplain - 08/14/2021 18:19 EST Spiritual Assessment Spiritual Assessment Comment/Summary Points : Breif supportive visit as patient appeared tired. Spirital Assessment Comment/Summary Report : SPIRITUAL ASSESSMENT COMMENT/SUMMARY Spiritual Assessment Comment/Summary 08/11/21 06:40:00 MPTL Surgery. PT's daughter was at bedside. Uniformer provided pastoral presence, support, and prayer. Family; boyfriend, daughter & others. Signed By: Hiram Lee Chaplain-Non Cert Lázaro Oquendo Chaplain - 08/14/2021 18:19 EST Interventions Emotional Support : Empathic/Engaged listening Spiritual and Jehovah'S Witness : Spiritual/Jehovah'S Witness support provided Lázaro Oquendo Chaplain - 08/14/2021 18:19 EST Electronically signed by [facility] Conversion Manager Corporate Communications Cerner at 12/28/2022 7:57 PM CDT documented in this encounter Plan of Treatment Not on file documented as of this encounter Visit Diagnoses Not on filedocumented in this encounter
--- OUTSIDE RECORDS SUMMARY | 2025-04-08 13:58 | XMS_ITS | Encounter Summary ---
Author Organization [employer] ([place], [place], [place], [place]) Address [address] [place] [address] Care Team Providers Care Neuropsychology Division Chief Name Role Phone Unavailable Primary Care Provider Unavailabl e Encounter Details Date Type Department Care Team (Late st Contact Info) Description 08/14/2021 Transcribed Document [facility] [place] [facility] [place] [address] ProviderMaxine MD [address] [place] [address] Social History Tobacco Use Types [...] Conversion Note - Historical ProviderMD - 08/14/2021 6:54 PM RN DERMATOLOGY Nursing Discharge Summary Entered On: 08/14/2021 18:55 EST Performed On: 08/14/2021 18:54 EST by NANCY BELL RN Discharge Documentation Discharge Date/Time : 08/14/2021 17:15 EST Patient Disposition, General : Discharge Discharge To : Home with ambulatory/outpatient follow-up Mode Of Departure, General Discharge : Private vehicle Accompanied By, Discharge : Daughter IV Discontinued : Yes Personal Belongings With Patient : Yes Pt's Own Supply of Medications Returned : No patient supply of medications to return Prescriptions Given to Patient : No Medications Given to Patient : Yes Discharge Instructions Reviewed With, Opportunity For Questions Given : Patient Patient Education Completed : Yes Teaching Method : Explanation, Printed materials Teaching Evaluation : Verbalizes understanding NANCY BELL RN - 08/14/2021 18:54 EST Electronically signed by [facility] Sjh Conversion Workers Compensation Specialist Cerner at 12/28/2022 7:37 PM CDT documented in this encounter Plan of Treatment Not on file documented as of this encounter Visit Diagnoses Not on filedocumented in this encounter
--- OUTSIDE RECORDS SUMMARY | 2025-04-08 13:58 | XMS_ITS | Encounter Summary ---
Author Organization [employer] ([place], [place], [place], [place]) Address [address] [place] [address] Care Team Providers Care Asset Protection Agent Name Role Phone Unavailable Primary Care Provider Unavailabl e Encounter Details Date Type Department Care Team (Late st Contact Info) Description 08/14/2021 Transcribed Document [facility] [place] [facility] [place] [address] ProviderMaxine MD [facility] [place] [address] Social History Tobacco Use Types [...] Conversion Note - Maxine ProviderMD - 08/14/2021 8:45 AM POURED PIPE MAKER [address] [place] [address] Patient Copy Patient Information: Name: SERA CALI Current Date: 08/14/2021 08:45:43 : 1970 Patient Address: [address] [place] [id number] Patient Attending Physician: CARLOS DAMON MD-SNU Primary Care Provider: [facility] Primary Care Provider Discharge Diagnosis: Other spondylosis with myelopathy, lumbar region Weight on Admission: 206 lb, 2 oz Comment: Follow-up Instructions: With: Address: When: CARLOS DAMON [address] [facility] [place] [phone] Business (1) Within 1 month Comments: with xrays first With: Address: When: CARLOS DAMON [address] [facility] [place] [phone] Business (1) Within 2 weeks Comments: yordan out Discharge Instructions: Diet after Discharge: Resume usual diet as tolerated Activity after Discharge: No heavy lifting over 10 pounds Driving after Discharge: Do not drive Showering/Bathing:May shower, No tub bathing, soaking, or swimming Wound/Incision Care after Discharge: Keep operative site/wound site clean and dry, Change dressing with dry dressing daily and as needed Immunizations Documented During Stay: SARS-CoV-2 (COVID-19) mRNA-1273 vaccine 01/07/2021 SARS-CoV-2 (COVID-19) mRNA-1273 vaccine 12/16/2020 Heart Failure Discharge Instructions (if any): Stroke Related Discharge Instructions (if any): Warfarin Related Discharge Instructions (if any): Final Medication List: Other Medications acetaminophen (Tylenol) 1,500 Milligram(s) Oral Two Times A Day as needed as needed for pain. buPROPion 300 Milligram(s) Oral Every Day. cyanocobalamin (Vitamin B12) IntraMuscular Every 4 Weeks. pantoprazole 40 Milligram(s) Oral Two Times A Day. venlafaxine 150 Milligram(s) Oral Every Day. Patient Allergies: No Known Medication Allergies Medication Instructions: Take your medications faithfully. Do NOT skip [...] cramping, rapid heartbeat, difficulty sleeping, and nervousness. Patient education materials: Spinal Fusion, Adult, Care After This sheet [...] these instructions at home: Medicines ??? Take gqdq-glb-adpwaok and prescription medicines only as told by [...] keep your urine pale yellow. ? Take klnc-vah-mrzfyhh or prescription medicines. ? Eat foods that [...] and water are not available, use hand it compliance manager. ? Change your dressing as told by [...] incision area. ??? Apply ice and take myeu-npw-udsjhha and prescription medicines as told by your [...] provider. Document Revised: 07/11/2020 Document Reviewed: 07/11/2020 [employer] Patient Education ? 2020 [employer]. CIGARETTE SMOKING: The facts are clear, cigarette smoking will shorten your life. Smoking can cause many illnesses along the way. As a healthcare provider, we recommend that you stop smoking. Assistance with quitting is available by contacting 0-492-FLNJ-NOW. This is a free resource providing counseling, support, and referral. Or you may contact your personal physician. 4 WAYS TO GET AHEAD OF SEPSIS SEPSIS is a MEDICAL EMERGENCY. Time matters! Infections put you and your family at risk for a life-threatening condition called sepsis. Sepsis is the body???s extreme response to an infection. It is life-threatening, and without timely treatment, sepsis can rapidly lead to tissue damage, organ failure, and . Sepsis happens when an infection you already have???in your skin, lungs, urinary tract or somewhere else???triggers a chain reaction throughout your body. 1 [...] sepsis or if you have an infection that???s not getting better or is getting worse. To learn more about sepsis and how to prevent infections, visit www.cdc.gov/sepsis. STROKE is an EMERGENCY Every Minute Counts ACT F.A.S.T! FACE ?? Facial droop ?? Uneven smile ARM ?? Arm numbness ?? Arm weakness SPEECH ?? Slurred speech ?? Difficulty speaking or understanding TIME ?? Call 911 and get to the hospital immediately Have the ambulance go to the nearest stroke center. STROKE Risk Factors High blood pressure High cholesterol Heart Disease Diabetes Smoking Heavy alcohol use Physical inactivity and obesity Atrial Fibrillation (irregular heartbeat) Family history of stroke Reminder: Be sure to sign up for the My [facility] patient portal, which gives you 01/04 access to your medical information ??? including these discharge instructions ??? using your computer, smartphone, or tablet. Just go to [employer] to get started. Questions? Call . [facility] would like to thank you for allowing us to assist you with your healthcare needs. VIRAJ Marks LISA DIANN, (or investment representative) have received the above patient education materials/instructions and have verbalized understanding: Patient Signature _ Date/Time Patient Locomotive Engineer Electric Signature (if needed) Date/Time Clinician/Hospital Locomotive Engineer Electric Signature (if needed) Date/Time documented in this encounter Plan of Treatment Not on file documented as of this encounter Visit Diagnoses Not on filedocumented in this encounter
--- OUTSIDE RECORDS SUMMARY | 2025-04-08 13:58 | XMS_ITS | Encounter Summary ---
Author Organization [employer] ([place], [place], [place], [place]) Address [address] [place] [address] Care Team Providers Care Log Tumbler Name Role Phone Unavailable Primary Care Provider Unavailabl e Encounter Details Date Type Department Care Team (Late st Contact Info) Description 08/11/[address] [facility] [place] Family Medicine [address] [place] [address] ProviderMaxine MD [address] [place] [address] Social History Tobacco Use Types [...] Conversion Note - Historical ProviderMD - 08/11/2021 12:54 PM COAT HANGER SHAPER MACHINE OPERATOR Meds to Bed Enrollment Entered On: 08/14/2021 10:31 EST Performed On: 08/11/2021 12:54 EST by Aydin Burnette Coffee Shop Aide Cert Lead Meds to Bed Enrollment Patient Enrollment Decision: : Yes/enroll in meds to bed program Aydin Burnette Coffee Shop Aide Cert Lead - 08/14/2021 10:31 EST documented in this encounter Plan of Treatment Not on file documented as of this encounter Visit Diagnoses Not on filedocumented in this encounter
--- OUTSIDE RECORDS SUMMARY | 2025-04-08 13:58 | XMS_ITS | Encounter Summary ---
Author Organization [employer] ([place], [place], [place], [place]) Address [address] [place] [address] Care Team Providers Care Girls Swimming Coach Name Role Phone Unavailable Primary Care Provider Unavailabl e Encounter Details Date Type Department Care Team (Late st Contact Info) Description 08/14/2021 Transcribed Document [facility] [place] [address] [place] [address] ProviderMaxine MD [address] [place] [address] Social History Tobacco Use Types [...] Conversion Note - Historical ProviderMD - 08/14/2021 2:46 PM PANTOGRAPH II ENGRAVER Final Discharge Planning Entered On: 08/14/2021 14:46 EST Performed On: 08/14/2021 14:46 EST by CHA HENNESSY RN-Boiler Riveter Final Discharge Planning Discharge Arrangements : Patient Post-Acute Information Patient Name: SERA MATTHEWS Gender: Female : [birth year] Age: 50 Years [place] Referral(s): Service: Organization: Business Address: Phone Number: Home Care Physician Services [facility] - [address], [address], [place], [address] Durable Medical Equipment [facility] - [address], [address] Patient Offered Choice/Affiliations Explained : Yes Designation of Choice Signed : Yes Important Medicare Message Reviewed With : Other: Commercial Transportation Needs : Car Follow Up Appointment Scheduled : Yes Is Patient High/Moderate Readmission Risk? : No Patient/Family Notified of Plan : Yes Is Patient Ready for Discharge? : Yes Physician Notified Patient is Ready for Discharge? : Yes Discharge To Care Management : Home Health Services (Related/SOC within 3 days)-06 CHA HENNESSY RN-Boiler Riveter - 08/14/2021 14:46 EST Electronically signed by Yolanda [facility] Conversion Delicatessen Department Manager Cerner at 12/28/2022 7:48 PM CDT documented in this encounter Plan of Treatment Not on file documented as of this encounter Visit Diagnoses Not on filedocumented in this encounter
--- OUTSIDE RECORDS SUMMARY | 2025-04-08 13:58 | XMS_ITS | Encounter Summary ---
Author Organization [employer] ([place], [place], [place], [place]) Address [address] [place] [address] Care Team Providers Care Franchise Sales Manager Name Role Phone Unavailable Primary Care Provider Unavailabl e Encounter Details Date Type Department Care Team (Late st Contact Info) Description 08/09/2021 Transcribed Document [facility] [place] [address] [place] [address] ProviderMaxine MD [address] [place] [address] Social History Tobacco Use Types Packs/Day Years Used Date Smoking Tobacco: Never Assessed Comments Unknown Sex and Gender Information Value Date Recorded Sex Assigned at Unknown 03/06/2022 8:57 PM CDT Legal Sex Female 8:57 PM CDT Gender Identity Not on file Sexual Orientation Not on file documented as of this encounter Miscellaneous Notes * Cerner Conversion Note - Historical ProviderMD - 08/09/2021 1:43 PM LOTTERY SALES CLERK UM Authorization Entered On: 08/09/2021 13:44 EST Performed On: 08/09/2021 13:43 EST by JOSEFINA ALMONTE, Catering And Events Manager Primary Insurance Authorization Authorization and Policy Numbers : Insurance 1 Health Plan: [facility] Policy Number: [id number] Authorization Number: Insurance Primary Name : Esperanza [id number] Authorization Status-Primary : Admit approved Authorization Number-Primary : [id number] Number of Days Authorized-Primary : 1 Day(s) Authorized Service Begin Date-Primary : 08/11/2021 EST Authorized Service End Date-Primary : 08/12/2021 EST Authorization Comments-Primary : pt is aramis for INPT lumbar fusion posterior 3 level on Saturday08-11-21 per STAR Esperanza approved 2 days INPT auth# [id number] Historical Authorization Comments-Primary : No Authorization Comments Found JOSEFINA ALMONTE, Catering And Events Manager - 08/09/2021 13:43 EST documented in this encounter Plan of Treatment Not on file documented as of this encounter Visit Diagnoses Not on filedocumented in this encounter
--- OUTSIDE RECORDS SUMMARY | 2025-04-08 13:58 | XMS_ITS | Encounter Summary ---
Author Organization [employer] ([place], [place], [place], [place]) Address [address] [place] [address] Care Team Providers Care Anthropology Instructor Name Role Phone Unavailable Primary Care Provider Unavailabl e Encounter Details Date Type Department Care Team (Late st Contact Info) Description 08/13/2021 Transcribed Document [facility] [place] [facility] [place] [address] ProviderMaxine MD [address] [place] [address] Social History Tobacco Use Types [...] Conversion Note - Historical ProviderMD - 08/13/2021 2:00 PM FRONT LINE SUPERVISOR Pain Assessment Entered On: 08/13/2021 16:25 EST Performed On: 08/13/2021 13:49 EST by ELPIDIO GARCIA RN Intervention Information: acetaminophen Performed by ELPIDIO GARCIA RN on 08/13/2021 12:49:00 EST acetaminophen,650mg Oral Pain Assessment Pain Assessment : Follow-up assessment Pain Scale Goal : 5 Pain Scale Used : 0-10 Scale Location : Back Pain Improved by Intervention : Yes ELPIDIO GARCIA RN - 08/13/2021 16:25 EST Pain Scale Intensity : 5 ELPIDIO GARCIA RN - 08/13/2021 16:25 EST Image 4 - Images currently included in the form version of this document have not been included in the text rendition version of the form. documented in this encounter Plan of Treatment Not on file documented as of this encounter Visit Diagnoses Not on filedocumented in this encounter
--- OUTSIDE RECORDS SUMMARY | 2025-04-08 13:58 | XMS_ITS | Encounter Summary ---
Author Organization [employer] ([place], [place], [place], [place]) Address [address] [place] [address] Care Team Providers Care Ditching Machine Engineer Name Role Phone Unavailable Primary Care Provider Unavailabl e Encounter Details Date Type Department Care Team (Late st Contact Info) Description 08/12/[address] [facility] [place] [facility] [place] [address] ProviderMaxine MD [address] [place] [address] Social History Tobacco Use Types Packs/Day Years Used Date Smoking Tobacco: Never Assessed Comments Unknown Sex and Gender Information Value Date Recorded Sex Assigned at Unknown 03/06/2022 8:57 PM CDT Legal Sex Female 8:57 PM CDT Gender Identity Not on file Sexual Orientation Not on file documented as of this encounter Miscellaneous Notes * Luizaner Conversion Note - Historical ProviderMD - 08/12/2021 10:00 AM TREAD CUTTER Pain Assessment Entered On: 08/12/2021 15:46 EST Performed On: 08/12/2021 9:33 EST by ELPIDIO GARCIA RN Intervention Information: acetaminophen Performed by ELPIDIO GARCIA RN on 08/12/2021 08:33:00 EST acetaminophen,650mg Oral Pain Assessment Pain Assessment : Follow-up assessment Pain Scale Goal : 5 Pain Scale Used : 0-10 Scale Location : Back, Hips, bilateral Pain Improved by Intervention : Yes ELPIDIO GARCIA RN - 08/12/2021 15:46 EST Pain Scale Intensity : 4 ELPIDIO GARCIA RN - 08/12/2021 15:46 EST Image 4 - Images currently included in the form version of this document have not been included in the text rendition version of the form. documented in this encounter Plan of Treatment Not on file documented as of this encounter Visit Diagnoses Not on filedocumented in this encounter
--- NOTE | 2025-04-08 14:19 | EXP.PAIN.SOA ---
[facility] Disclaimer: The information contained in this section may have been updated after the patient was seen, as this information can be updated by other users. Medical History REINA (obstructive sleep apnea) Cardiac device, implant, or graft infection or inflammation Encounter for loop recorder check Implantable loop recorder present Cryptogenic stroke HLD (hyperlipidemia) Back pain with history of spinal surgery Chest pain Elevated left ventricular end-diastolic pressure (LVEDP) SOB (shortness of breath) on exertion Family history of ischemic heart disease (IHD) Edema of both lower extremities Abnormal electrocardiogram [ECG] [EKG] Palpitations Typical angina Abnormal result of cardiovascular function study REINA (obstructive sleep apnea) Mild to moderate REINA diagnosed November 2020. Symptomatic improvement with CPAP, poor compliance Newly diagnosed diabetes Osteoarthritis of feet, bilateral Surgical History History of bilateral hip replacements History of back surgery Hx of foot surgery left screw Hx of total hip arthroplasty right History of partial hysterectomy has ovaries History of tonsillectomy Family History Other Cancer Coronary artery disease Diabetes Family history of diabetes mellitus type II Family history of hyperlipidemia Family history of hypothyroidism Family history of stroke Heart attack Social History Smoking Status: Never smoker smoking status start date: 05/01/23 alcohol intake: never substance use type: denies use current occupational status: other Travel in the last 8 weeks?: None household members: significant other housing: house lives independently: Yes marital status: single education level: high school service: No 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 Today she rates her pain a 5 out of 10. She denies any new falls or injuries. Patient does state that she did have at least 75% improvement for a full 2 weeks following these injections. She does however state that it is dropped down significantly male and feels like she has more pain in around the left hip. Patient is currently managed with gabapentin 300 mg twice a day, Peck 5 mg twice a day Flexeril 10 mg at bedtime and compounded cream. Patient does state that she just cannot seem to do the gabapentin during the day because it causes so much more fatigue. Patient is asking if there is other medications that may help with some of her pain. Patient does also make mention that she has recently been having more right foot issues and that they did think it was plantar fasciitis. Patient does states she is going back to that provider around 12 April. Her Leno has been reviewed and is appropriate. Review of Systems: General: No recent weight changes, no fever, no sleep disturbances Respiratory: No cough, no shortness of air, no recurring pulmonary infections Cardiovascular/peripheral vascular: No chest pain, no palpitations, no edema, no shortness of breath Gastrointestinal: No new onset incontinence, normal bowel movements reported Genitourinary: No new onset incontinence Musculoskeletal: Left hip pain Psychiatric: [Normal mood/affect] Neurological: [Denies weakness in extremities], [denies balance issues] Pain at rest (0-10 scale): 5 Objective Objective:: Physical Exam: General: Alert and oriented x3, no acute distress, pleasant and cooperative Lungs: Respirations even and unlabored, symmetrical chest expansion Eyes: PERRL Musculoskeletal: Flexion and extension of left hip somewhat guarded secondary to pain, [antalgic gait noted] Neurological: Speech clear, no gross sensory deficit Has patient had previous pain injection?: Yes Percent improvement in pain since last injection: 75% Conservative treatment options previously tried: Home exercise plan Length of treatment: Longer than 12 weeks Meds Home Medications and Allergies Home Medications ?Medication ?Instructions ?Recorded ?Confirmed ?Type losartan 100 mg tablet 100 mg PO DAILY 09/07/23 03/16/25 History varenicline tartrate 1 mg tablet 1 mg PO DAILY 09/07/23 03/16/25 History venlafaxine 150 mg 150 mg PO DAILY 09/07/23 03/16/25 History capsule,extended release 24 hr rosuvastatin 40 mg tablet See Rx Instructions .Route 09/30/23 03/16/25 Rx .COMPLEX #90 tabs cyanocobalamin (vitamin B-12) 1,000 mcg IM QMONTH 10/09/23 03/16/25 History 1,000 mcg/mL injection solution famotidine 40 mg tablet 40 mg PO DAILY 10/09/23 03/16/25 History montelukast 10 mg tablet 10 mg PO HS 10/09/23 03/16/25 History dapagliflozin propanediol 5 mg 5 mg PO DAILY 11/04/23 03/16/25 History tablet (Farxiga) albuterol sulfate 90 mcg/actuation 1 - 2 puff inhalation Q4-6H PRN 12/02/23 03/16/25 Rx aerosol inhaler (Proventil HFA) shortness of breath or wheezing #8.5 grams aspirin 81 mg tablet,delayed 81 mg PO DAILY 12/02/23 03/16/25 History release cholecalciferol (vitamin D3) 25 25 mcg PO DAILY 12/02/23 03/16/25 History mcg (1,000 unit) tablet furosemide 40 mg tablet 40 mg PO DAILY 12/23/23 03/16/25 History syringe with needle 3 mL 25 gauge #1 ea 07/09/24 03/16/25 History x 1 (BD Luer-Chantelle Syringe) nystatin 100,000 unit/gram topical 1 applic topical DIRECTED 11/17/24 03/16/25 History cream primidone 50 mg tablet 50 mg PO AM 01/11/25 03/16/25 History hydrocodone 5 mg-acetaminophen 325 1 tab PO BID #60 tabs 01/20/25 03/16/25 Rx mg tablet lubiprostone 24 mcg capsule 24 mcg PO DAILY 02/04/25 03/16/25 History nystatin 100,000 unit/gram topical 100,000 unit topical . 02/04/25 03/16/25 History powder (Nystop) tirzepatide 15 mg/0.5 mL 15 mg SQ . 02/04/25 03/16/25 History subcutaneous pen injector (Macunpasharo) pantoprazole 40 mg tablet,delayed 40 mg PO DAILY #30 tabs 02/09/25 03/16/25 Rx release (Protonix) cyclobenzaprine 10 mg tablet See Rx Instructions .Route 02/10/25 03/16/25 Rx .COMPLEX #60 tabs fluticasone propionate 50 1 spray intranasal . 02/12/25 03/16/25 History mcg/actuation nasal spray,suspension levocetirizine 5 mg tablet 5 mg PO DAILY 02/12/25 03/16/25 History gabapentin 300 mg capsule See Rx Instructions .Route 03/29/25 Rx .COMPLEX #60 caps New Prescriptions to Start Prescriptions: Allergies Allergy/AdvReac Type Severity Reaction Status Date / Time No Known Allergies Allergy Verified 02/24/25 10:13 Assessment and Plan *Assessment and plan (1) Trochanteric bursitis of both hips: Status: Acute Category: Medical Code(s): M70.61 - Trochanteric bursitis, right hip; M70.62 - Trochanteric bursitis, left hip Plan I did discuss with the patient we will definitely plan on repeating her bursa injection in around June if she is still having the left hip pain. I will refill the patient's Peck, gabapentin and Flexeril. We will change the gabapentin to just at bedtime and I will also add the addition of duloxetine 20 mg daily. Patient will return to clinic in 1 month. Risks and benefits of the medication have been explained in detail to the patient. The patient does understand the risk of dependence on the medication when given over a prolonged period. Patient has been advised of risks of oversedation with the prescribed medication. Narcan has been offered to the paitent in the event of oversedation. Patient has been advised that a family member should also be educated regarding administration of Narcan. The patient has been advised to consult with his/her primary care provider and pharmacist regarding drug-drug interaction of medications currently prescribed. Patient has been prescribed a controlled substance after being counseled on the medication, medication safety, and possible side effects. Opioid contract was reviewed and signed by the patient, and that they have agreed to all of the terms set forth by our compliance program. A UDS is needed to verify patient's compliance with our office pain contract. This is ordered based off specific treatments related to chronic pain with the potential to abuse certain medications. Patient has been instructed to contact the clinic with any concerns before the next appointment. Dr. Barragan has reviewed this note and agrees with this plan of care. This note was dictated using voice recognition software and make contain errors or omissions.
[2025-04-08 14:34] VITALS: BP 117/74; PULSE 79; RESP 14; O2SAT 98; BMI 28.3
== END 2025-04-08 23:59 | disposition home or self-care (01) ==
PROVIDERS: PCP Nurse Practitioner Family; Visit Provider Nurse Practitioner Family
DX: M70.61 Trochanteric bursitis, right hip (principal); M70.62 Trochanteric bursitis, left hip; Z79.899 Other long term (current) drug therapy; Z79.1 Long term (current) use of non-steroidal anti-inflammatories (NSAID)
CPT/HCPCS: 99212; G0463

== ENCOUNTER 2025-07-22 09:36 | Outpatient (CLI) | payer MEDICARE, SELFPAY ==
--- OUTSIDE RECORDS SUMMARY | 2025-07-22 09:40 | XMS_ITS | Clinical Summary ---
Author Organization [facility] Address [address] [place] [id number] Phone Care Team Providers Care Curb Worker Name Role Phone Unavailable Primary Care [...] Active fluticasone propionate (FLONASE) 50 mcg/actuation Nasl [place], Suspension 50 mcg. 02/23/2022 Active gabapentin (NEURONTIN) [...] of 2) 2021 COVID-19 Vaccine (4 - 2024- season) 2025 06/29/2022, 12/16/2020, 11/18/2020 Influenza Vaccine (#1) 2025 , 05/31/2021, 06/09/2018, Additional history exists DTaP/TDaP/Td (2 - Tdap) 06/23/2027 06/23/2017 Meningococcal B Vaccine Aged Out No l onger eligible based on patient's age to complete this topic Insurance
--- OUTSIDE RECORDS SUMMARY | 2025-07-22 09:40 | XMS_ITS | Referral Summary ---
Author Organization [employer] ([place], [place], [place], [place], [place]) Address [address] [place] [address] Care Team Providers Care Rolling Up Machine Operator Name Role Phone Unavailable Primary Care [...]
--- OUTSIDE RECORDS SUMMARY | 2025-07-22 09:41 | XMS_ITS | Encounter Summary ---
Author Organization [email or web address] ([place], [place], [place], [place], [place]) Address [address] [place] [address] Care Team Providers Care Senior Quality Control Inspector Name Role Phone Unavailable Primary Care Provider Unavailabl e Encounter Details Date Type Department Care Team (Late st Contact Info) Description 08/14/2021 Transcribed Document [facility] Neurology - [address] [facility] [address] [place] [address] Carlos Delgado MD [address] [facility] [address] [place] [address] Social History Tobacco Use Types Packs/Day [...] Lymph # 3.32 x10(3)/uL 08/14/2021 03:24 EST Pettis % 8.1 % 08/14/2021 03:24 EST Pettis # 0.90 K/uL 08/14/2021 03:24 EST Eos [...]
--- OUTSIDE RECORDS SUMMARY | 2025-07-22 09:41 | XMS_ITS | Encounter Summary ---
Author Organization [employer] ([place], [place], [place], [place], [place]) Address [address] [place] [address] Care Team Providers Care Acetylene Operator Name Role Phone Unavailable Primary Care Provider Unavailabl e Encounter Details Date Type Department Care Team (Late st Contact Info) Description 08/13/2021 Transcribed Document [facility] Radiology [address] [place] [address] Silva Merlos MD [facility] [address] [address] Social History Tobacco Use Types [...] is a 50 yo female admitted to [facility] per Dr. Delgado for an L3-S1 PLIF with possible iliac bolts. Preoperatively patient was found to have advanced spondylolisthesis of the lumbar spine and elected surgical intervention after failing conservative treatment. Patient is followed perioperatively while hospitalized for medical management. Initial visit in PACU -- Denies prior stroke or seizure. Denies [place], CHF or cardiac arrhythmia. Denies DM. Denies [...] mg, Oral, Daily Vitamin B12 , IntraMuscular, [id number] ROS: Constitutional: [No fevers, chills, sweats] very [...] Charted Minimum Maximum Temp H 100.1 (AUG 14:) 99.1 (AUG 14 02:51) H 100.2 (AUG 13:03) Mon HR 82 (AUG 14:) 82 (AUG 14:00) 87 (AUG 14 02:51) Resp Rate 15 (AUG 14:) 15 (AUG 14:) 16 (AUG 13 18:00) SBP 119 (AUG 14:00) 112 (AUG 13:03) 122 (AUG 14 02:51) DBP L 58 [...]
--- OUTSIDE RECORDS SUMMARY | 2025-07-22 09:41 | XMS_ITS | Encounter Summary ---
Author Organization [employer] ([place], [place], [place], [place], [place]) Address [address] [place] [address] Care Team Providers Care Tool Machine Setup Operator Name Role Phone Unavailable Primary Care Provider Unavailabl e Encounter Details Date Type Department Care Team (Late st Contact Info) Description 08/11/2021 Transcribed Document [facility] Radiology [address] [place] [address] Darron Merlos MD [address] [place] [address] Social History Tobacco Use Types Packs/Day [...] is a 50 yo female admitted to [facility] per Dr. Delgado for an L3-S1 PLIF with possible iliac bolts. Preoperatively patient was found to have advanced spondylolisthesis of the lumbar spine and elected surgical intervention after failing conservative treatment. Patient is followed perioperatively while hospitalized for medical management. Initial visit in PACU -- Denies prior stroke or seizure. Denies CT, CHF or cardiac arrhythmia. Denies DM. Denies [...] mg, Oral, Daily Vitamin B12 , IntraMuscular, [id number] ROS: Constitutional: [No fevers, chills, sweats] very [...] 97.1 (AUG 11:) Mon HR 70 (AUG 11:) 70 (AUG 11:) 70 (AUG 11:) Resp Rate 18 (AUG 11:00) 18 (AUG 11:00) 18 (AUG 11) SBP H 146 (AUG 11:) H 146 [...]
--- OUTSIDE RECORDS SUMMARY | 2025-07-22 09:41 | XMS_ITS | Encounter Summary ---
Author Organization [employer] ([place], [place], [place], [place], [place]) Address [address] [place] [address] Care Team Providers Care American History Professor Name Role Phone Unavailable Primary Care Provider Unavailabl e Encounter Details Date Type Department Care Team (Late st Contact Info) Description 08/11/2021 Transcribed Document [facility] [place] [facility] [place] [address] ProviderMaxine MD [facility] [place] [address] Social History Tobacco Use Types [...] - Historical ProviderMD - 08/11/2021 12:13 PM TRADING ASSISTANT Evaluation, Occupational Therapy Entered On: 08/12/2021 12:47 EST Performed On: 08/12/2021 11:02 EST by RAJENDRA HARRIS OTR/Mar General Information, OT Visit Type, OT : Initial evaluation Patient Orders : Order Date Order Ordering 08/11/2021 12:13 Occupational Therapy Evaluation and Treatme Ordered By: CARLOS DAMON MD-SNU Active Diagnoses [...] brace on RN/PCT Informed Comment : KIMBERLY Hernandez okayed OT eval and tx Treatment End Time [...] HARRIS OTR/Mar - 08/12/2021 12:44 EST Hand House Mover Test : WFL Fine Motor Coordination Impaired [...] to Sit : Supervision/set-up RAJENDRA HARRIS OTR/Mar Meza 08/12/2021 12:57 EST Supine to Sit Device [...] RAJENDRA HARRIS OTR/Mar - 08/12/2021 12:57 EST Toolroom Attendant Goals, OT Dressing, Lower Body LTG Grid Goal #1 Activity : Dressing, Lower Body Assist : Supervision or set up Equipment : Long Handled Lead Relay Tester, Sock aid, Long handled shoehorn Date to Meet : 08/26/2021 EST Goal Status : Initial goal RAJENDRA HARRIS OTR/Mar - 08/12/2021 12:57 EST Toilet Transfer LTG Grid Goal #1 Activity : Toilet Transfer, Ambulatory Assist : Independent, modified Date to Meet : 08/26/2021 EST Goal Status : Initial goal Comment : bathroom toilet, demo good safety RAJENDRA HARRIS OTR/Mar - 08/12/2021 12:57 EST Bed Mobility/ Bed [...] : see POC and LTG RAJENDRA HARRIS OTR/L - 08/12/2021 12:57 EST Pain Assessment Pain [...] Therapy at Discharge : Yes RAJENDRA HARRIS OTR/L - 08/12/2021 12:[address] [facility] OT Charges OT Selfcare/Hm Mgmt Ea 15 Min : 2 OT Eval Low Complexity : 1 RAJENDRA HARRIS OTR/L - 08/12/2021 12:57 EST Electronically signed by Yolanda, [facility] Conversion Granite Sandblaster Apprentice Cerner at 12/28/2022 7:40 PM CDT documented in this encounter Plan of Treatment Not on file documented as of this encounter Visit Diagnoses Not on filedocumented in this encounter
--- OUTSIDE RECORDS SUMMARY | 2025-07-22 09:41 | XMS_ITS | Encounter Summary ---
Author Organization [employer] ([place], [place], [place], [place], [place]) Address [address] [place] [address] Care Team Providers Care Oil Field Technician Name Role Phone Unavailable Primary Care Provider Unavailabl e Encounter Details Date Type Department Care Team (Late st Contact Info) Description 08/14/2021 Transcribed Document [facility] Radiology 1 [place] [address] Darron Merlos MD [facility] [address] [address] Social History Tobacco Use Types [...] Conversion Note - Darron Merlos MD - 08/14/2021 9:40 AM EST Patient: [...] is a 50 yo female admitted to [facility] per Dr. Delgado for an L3-S1 PLIF with possible iliac bolts. Preoperatively patient was found to have advanced spondylolisthesis of the lumbar spine and elected surgical intervention after failing conservative treatment. Patient is followed perioperatively while hospitalized for medical management. Initial visit in PACU -- Denies prior stroke or seizure. Denies [place], CHF or cardiac arrhythmia. Denies DM. Denies [...] mg, Oral, Daily Vitamin B12 , IntraMuscular, [id number] ROS: ROS as above, all other systems reviewed negative Exam: Vitals Signs (last 24 hrs) Last Charted Minimum Maximum Temp H 100.1 (AUG 14 06:00) 99.1 (AUG 14 02:51) H 100.2 (AUG 13 23:03) Mon HR 82 (AUG 14 06:00) 82 (AUG 14 06:00) 87 (AUG 14 02:51) Resp Rate 15 (AUG 14:00) 15 (AUG 14 06:00) 16 (AUG 13 18:00) SBP 119 (AUG 14 06:00) 112 (AUG 13 23:03) 122 (AUG 14 02:51) DBP L 58 (AUG 14 06:00) L 54 (AUG 13:03) 88 (AUG 13 18:39) MAP 72 (AUG 14:00) 67 (AUG 13:03) 94 (AUG 13 18:39) [...]
--- OUTSIDE RECORDS SUMMARY | 2025-07-22 09:41 | XMS_ITS | Encounter Summary ---
Author Organization [employer] ([place], [place], [place], [place], [place]) Address [address] [place] [address] Care Team Providers Care Sponge Hooker Name Role Phone Unavailable Primary Care Provider Unavailabl e Encounter Details Date Type Department Care Team (Late st Contact Info) Description 08/13/2021 Transcribed Document [facility] Family Medicine [facility] [place] [address] ProviderMaxine MD [address] [place] [address] Social History Tobacco Use Types [...] - Historical ProviderMD - 08/13/2021 2:00 PM ANIMAL TAXONOMIST Pain Assessment Entered On: 08/13/2021 16:25 EST [...] the text rendition version of the form. Electronically signed by Loan Guerrero Conversion Commercial Lease Administrator Cerner at 12/28/2022 7:40 PM CDT documented in this encounter Plan of Treatment Not on file documented as of this encounter Visit Diagnoses Not on filedocumented in this encounter
--- OUTSIDE RECORDS SUMMARY | 2025-07-22 09:41 | XMS_ITS | Encounter Summary ---
Author Organization [employer] ([place], [place], [place], [place], [place]) Address [address] [place] [address] Care Team Providers Care Branch Sales And Service Representative Name Role Phone Unavailable Primary Care Provider Unavailabl e Encounter Details Date Type Department Care Team (Late st Contact Info) Description 08/11/2021 Transcribed Document [facility] Neurology - [address] [employer] [facility] [address] [place] [address] Edwin Delgado MD [address] [facility] [address] [place] [address] Social History Tobacco Use Types [...] Female : 1970 Associated Diagnoses: None Author: COMER, NIELS Walker APRN Chief Complaint pleasant 50 yo female [...] for pain, 0 Refill(s) Vitamin B12: IntraMuscular, [id number], 0 Refill(s) buPROPion: 300 mg, Oral, Daily, 0 Refill(s) pantoprazole: 40 mg, Oral, BID, 0 Refill(s) venlafaxine: 150 mg, Oral, Daily, 0 Refill(s), Home Medications (5) Active buPROPion 300 mg, Oral, Daily pantoprazole 40 mg, Oral, BID Tylenol 1,500 mg, PRN, Oral, BID venlafaxine 150 mg, Oral, Daily Vitamin B12 , IntraMuscular, [id number] , Medications (2) Active Scheduled: (1) ceFAZolin 2 Gram 100 mL, IV Piggyback, PREOP Continuous: (1) lactated ringers 1,000 mL 1,000 mL, IntraVENous, 20 mL/Hr PRN: (0) Problem list: All Problems History of obstructive sleep apnea / IMO [id number] / Confirmed uses cpap GERD (gastroesophageal reflux disease) / SNOMED CT 262434935 / Confirmed Constipation / SNOMED CT 78387470 / Confirmed lower back pain to both hips and BLE to feet, right hand numbness / SNOMED CT 926485273 / Confirmed, Active Problems (4) Constipation GERD [...] 07:) 70 (AUG 11 07:) 70 (AUG 11:) Resp Rate 18 (AUG 11:00) 18 (AUG 11:00) 18 (AUG 11:) SBP H 146 (AUG 11 07:00) H 146 (AUG 11 07:00) H 146 (AUG 11:00) DBP 88 (AUG 11 07:00) 88 (AUG 11 07:00) 88 (AUG 11 07:) MAP 108 (AUG 11:00) 108 (AUG 11:00) 108 (AUG 11:) SpO2 97 (AUG 11:) [...] back, harini LE radiculopathy. Integumentary: Warm, Dry, [place]. Neurologic: Alert, Oriented. Psychiatric: Cooperative, Appropriate mood [...]
--- OUTSIDE RECORDS SUMMARY | 2025-07-22 09:41 | XMS_ITS | Encounter Summary ---
Author Organization [employer] ([place], [place], [place], [place], [place]) Address [address] [place] [address] Care Team Providers Care Coagulating Drying Supervisor Name Role Phone Unavailable Primary Care Provider Unavailabl e Encounter Details Date Type Department Care Team (Late st Contact Info) Description 08/11/2021 Transcribed Document [facility] [place] [place] Medicine [facility] [place] [address] ProviderMaxine MD [address] [place] [address] Social History Tobacco Use Types [...] - Historical ProviderMD - 08/11/2021 12:43 PM AIRCRAFT ELECTRICIAN Pain Assessment Entered On: 08/13/2021 16:58 EST [...]
--- OUTSIDE RECORDS SUMMARY | 2025-07-22 09:41 | XMS_ITS | Encounter Summary ---
Author Organization [employer] ([place], [place], [place], [place], [place]) Address [address] [place] [address] Care Team Providers Care Captain/Check Airman Name Role Phone Unavailable Primary Care Provider Unavailabl e Encounter Details Date Type Department Care Team (Late st Contact Info) Description 08/11/2021 Transcribed Document [facility] Family Medicine [facility] [address] ProviderMaxine MD [address] [place] [address] Social History Tobacco Use Types [...] - Historical ProviderMD - 08/11/2021 12:13 PM SONG LYRICIST Consult Phone Call Documentation Entered On: 08/11/2021 16:16 EST Performed On: 08/11/2021 12:13 EST by KENNA DURANT Phone Call for Consults Consult Phone Call/Page Attempt : First call KENNA DURANT - 08/11/2021 16:16 EST Electronically signed by Yolanda [facility] Conversion Tool Setter Cerner at 12/28/2022 7:46 PM CDT documented in this encounter Plan of Treatment Not on file documented as of this encounter Visit Diagnoses Not on filedocumented in this encounter
--- OUTSIDE RECORDS SUMMARY | 2025-07-22 09:41 | XMS_ITS | Encounter Summary ---
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, [address] [place], [place] [id number] Business (1) Within 1 month Comments: with xrays first With: Address: When: CARLOS DAMON [address] [facility] [facility], [address] [place] [id number] Business (1) Within 2 weeks Comments: yordan [...] these instructions at home: Medicines ??? Take mmpq-azc-alwgxur and prescription medicines only as told by [...] keep your urine pale yellow. ? Take xvuy-dlu-fsywasq or prescription medicines. ? Eat foods that [...] and water are not available, use hand solar maintenance technician. ? Change your dressing as told by [...] incision area. ??? Apply ice and take rzxq-fdx-iaaywtt and prescription medicines as told by your [...] provider. Document Revised: 07/11/2020 Document Reviewed: 07/11/2020 [email or web address] Patient Education ? 2020 [employer] CIGARETTE SMOKING: The facts are clear, cigarette smoking will shorten your life. Smoking can cause many illnesses along the way. As a healthcare provider, we recommend that you stop smoking. Assistance with quitting is available by contacting 8-365-RRLB-NOW. This is a free resource providing counseling, [...] computer, smartphone, or tablet. Just go to [employer] to get started. Questions? Call . [facility] would like to thank you for allowing us to assist you with your healthcare needs. VIRAJ Marks LISA DIANN, (or wine sales representative) have received the above patient education materials/instructions and have verbalized understanding: Patient Signature _ Date/Time Patient Ledger Clerk Signature (if needed) Date/Time Clinician/Hospital Ledger Clerk Signature (if needed) Date/Time documented in this encounter Plan of Treatment Not on file documented as of this encounter Visit Diagnoses Not on filedocumented in this encounter
--- OUTSIDE RECORDS SUMMARY | 2025-07-22 09:41 | XMS_ITS | Encounter Summary ---
Author Organization [employer] ([place], [place], [place], [place], [place]) Address [address] [place] [address] Care Team Providers Care Instructional Design Technologist Name Role Phone Unavailable Primary Care Provider Unavailabl e Encounter Details Date Type Department Care Team (Late st Contact Info) Description 08/11/2021 Transcribed Document [facility] [facility] [place] [facility] [place] [address] ProviderMaxine MD [address] [place] [address] Social History Tobacco Use Types [...] - Historical ProviderMD - 08/11/2021 9:09 AM MINERAL ENGINEER [facility] Main OR Preop Summary Primary Physician: CARLOS DAMON MD-SNU Finalized Date/Time: 08/11/21 12:47:41 Pt. Name: SERA MATTHEWS /Sex: 1970 Female Med Rec #: [id number] Physician: CARLOS DAMON MD-SNU Financial #: [id number] Pt. Type: I Room/Bed: ASA/6 Admit/Disch: 08/11/21 06:40:00 - Institution: [facility] PreOp Case Times Entry 1 In Preop 08/11/21 06:27:00 Ready for Holding n/a Room Patient Ready for 08/11/21 07:25:00 Surgery Patient Out of Preop 08/11/21 08:24:00 Patient Out of n/a Holding Room Last Modified By: Ally Davies RN 08/11/21 12:47:[address] [facility] PreOp Case Times Audit 08/11/21 12:47:41 Humidifier Attendant: [id number] Modifier: [id number] <+> 1 Patient Out of Preop Finalized By: Ally Davies RN Document Signatures Signed By: Ally Davies RN 08/11/21 12:47 Electronically signed by Yolanda [facility] Conversion Kitchen Supervisor Cerner at 12/28/2022 7:47 PM CDT documented in this encounter Plan of Treatment Not on file documented as of this encounter Visit Diagnoses Not on filedocumented in this encounter
--- OUTSIDE RECORDS SUMMARY | 2025-07-22 09:41 | XMS_ITS | Encounter Summary ---
Author Organization [employer] ([place], [place], [place], [place], [place]) Address [address] [place] [address] Care Team Providers Care Terminal Gauger Name Role Phone Unavailable Primary Care Provider Unavailabl e Encounter Details Date Type Department Care Team (Late st Contact Info) Description 08/11/2021 Transcribed Document [facility] [place] [address] ProviderMaxine MD [address] [place] [address] Social History Tobacco Use Types [...] - Historical ProviderMD - 08/11/2021 9:09 AM CHIEF EXECUTIVE [facility] Main OR IntraOp Summary Primary Physician: CARLOS DAMON MD-SNU Finalized Date/Time: 08/14/21 13:12:29 Pt. Name: SERA CALI /Sex: 1970 Female Med Rec #: [id number] Physician: CARLOS DAMON MD-SNU Financial #: [id number] Pt. Type: I Room/Bed: 649/1 Admit/Disch: 08/11/21 06:40:00 - Institution: [facility] IntraOp Case Attendance Entry 1 Entry 2 Entry 3 Case Attendee CARLOS DAMON SMITH, MYRIAH L., RN WASSON, SANDRA D, RN MD-SNU Role Performed Surgeon/Proceduralist, Jr. Systems Administrator, First Jr. Systems Administrator, Second First Time In 08/11/21 08:28:00 08/11/21 [...] 6 Case Attendee Alisia Kilpatrick CST LONG, PAULA R., ANAT BOO PA Role Performed Scrub, Second Scrub, First Physician entry level assistant manager Time In 08/11/21 08:28:00 08/11/21 08:28:00 08/11/21 08:28:00 Time Out 08/11/21 12:05:00 08/11/21 12:05:00 08/11/21 12:05:00 Procedure Lumbar Fusion Posterior Lumbar Fusion Posterior Lumbar Fusion Posterior 3 Level 3 Level 3 Level Other Attendee Superficial Wound Closed By: Last Modified By: PURA PEREZ, PURA MENDOZA, PURA MENDOZA, KIMBERLY 08/11/21 12:06:13 08/11/21 12:06:13 08/11/21 12:06:13 Entry 7 Entry 8 Entry 9 Case Attendee ARSENIO DAS NA CORNEA, MIHAELA, MD-ANS SHELTON, CLARA S Role Performed FOOTBALL SCOUT/Nurse Special Effects Specialist Anesthesiologist of Inspector Weights And Measures Record Time In 08/11/21 08:28:00 08/11/21 08:28:00 08/11/21 08:28:00 Time Out 08/11/21 12:05:00 08/11/21 12:05:00 08/11/21 12:05:00 Procedure Lumbar Fusion Posterior Lumbar Fusion Posterior Lumbar Fusion Posterior 3 Level 3 Level 3 Level Other Attendee Superficial Wound Closed By: Last Modified By: PURA PEREZ, RN PEREZPURA RN SMITH, MYRIAH L., RN 08/11/21 12:06:13 08/11/21 12:06:13 08/11/21 12:06:13 Entry 10 Entry 11 Case Attendee Maximus Greenberg CST WASSON, SANDRA D, RN Role Performed Scrub, Third Jr. Systems Administrator, First Time In 08/11/21 10:53:00 08/11/21 11:01:00 Time Out 08/11/21 12:05:00 08/11/21 12:05:00 Procedure Lumbar Fusion Posterior Lumbar Fusion Posterior 3 Level 3 Level Other Attendee LUNCH RELIEF RN LUNCH RELIEF Superficial Wound Closed By: Last Modified By: PURA PEREZ RN SMITH, MYRIAH L., RN 08/11/21 12:06:13 08/11/21 12:06:13 [facility] IntraOp Case Attendance Audit 08/11/21 12:06:13 Wood Type Finisher: VANDA Modifier: VANDA 1 <+> Time Out [...] Lumbar Fusion Posterior 3 Level 08/11/21 11:04:01 Wood Type Finisher: VANDA Modifier: SMITHJOSE 10 <*> Procedure Lumbar Fusion Posterior 3 Level 10 <+> Other Attendee 08/11/21 11:02:12 Wood Type Finisher: VANDA Modifier: CHRISML <+> 11 Case Attendee <+> 11 Role Performed <+> 11 Time In <+> 11 Procedure <+> 11 Other Attendee 08/11/21 10:53:31 Wood Type Finisher: VANDA Modifier: CHRISML <+> 10 Case Attendee <+> 10 Role Performed <+> 10 Time In <+> 10 Procedure 08/11/21 09:31:44 Wood Type Finisher: VANDA Modifier: SMITHML <+> 1 Procedure 2 [...] <*> Procedure Lumbar Fusion Posterior 3 Level [facility] IntraOp Case Times Entry 1 Patient In Room Time 08/11/21 08:28:00 Out Room Time 08/11/21 12:05:00 Anesthesia Start Time 08/11/21 08:28:00 Stop Time 08/11/21 12:05:00 Surgery / Procedure Times Start Time 08/11/21 09:09:00 Stop Time 08/11/21 11:59:00 Last Modified By: PURA PEREZ RN 08/11/21 12:05:50 [facility] IntraOp Case Times Audit 08/11/21 12:05:50 Wood Type Finisher: VANDA Modifier: CHRISML <+> 1 Out Room Time <+> 1 Stop Time <+> 1 Stop Time [facility] IntraOp Cautery Entry 1 Entry 2 ESU Identification Cautery Type Monopolar ESU BiPolar ESU Cautery Type [place] Number [id number] ID Type Hospital Number Hospital Number Cautery [...] MYRIAH L., RN 08/11/21 09:19:41 08/11/21 09:19:41 [facility] IntraOp Communication Entry 1 Entry 2 Communication To Family/Significant other Family/Significant other Comment START UPDATE Communication By PURA PEREZ RN SMITH, MYRIAH L., RN Date and Time 08/11/21 09:19:00 08/11/21 10:58:00 Last Modified By: PURA PEREZ RN SMITH, MYRIAH L., RN 08/11/21 09:19:15 08/11/21 10:58:36 [facility] IntraOp Communication Audit 08/11/21 10:58:36 Wood Type Finisher: SMITHML Modifier: SMITHML <+> 2 Communication By <+> 2 Date and Time <+> 2 Communication To <+> 2 Comment [facility] IntraOp Counts Verification Entry 1 Procedure Lumbar Fusion Posterior 3 Level Count Info Count Type Sponge, Sharps, Miscellaneous Counts Verification Baseline/pre-procedure Sequence Count Results Not Applicable Counts Performed By Count Performed By Maximus Greenberg CST (Scrub) Count Performed By KEO BEACH RN (RN) Last Modified By: PURA PEREZ RN 08/11/21 11:25:52 [facility] IntraOp Counts Verification Audit 08/11/21 11:25:52 Wood Type Finisher: SMITHML Modifier: SMITHML 1 <*> Procedure Lumbar Fusion Posterior 3 Level 1 <*> Count Performed By (Scrub) CARLA JEONG ST 1 <*> Count Performed By (RN) PURA PEREZ RN [facility] IntraOp Counts Final Entry 1 Procedure Lumbar Fusion Posterior 3 Level Final Count Info Count Type Sponge, Sharps, Miscellaneous Counts Verification Skin Closure/end of Sequence procedure Count Results Correct, surgeon notified Counts Performed By Count Performed By Maximus Greenberg CST (Scrub) Count Performed By KEO BEACH RN (RN) Last Modified By: PURA PEREZ RN 08/11/21 11:31:09 [facility] IntraOp Departure from OR Entry 1 Integumentary Assessment Integumentary WDL with exceptions Assessment WDL Transfer/Handoff Transfer to PACU Phase I Handoff Method Bedside/Face to face, Phone call Post-op Transport Yesica/Edie Via Patient Transport ANAT TIAN PA, Accompanied by ARSENIO DAS NA Last Modified By: PURA PEREZ RN 08/11/21 09:20:14 [facility] IntraOp Drains and Tubes Entry 1 Device Type Justen Drain Size 15 FR Drain/Tube Activity Inserted Drain/Tube Suction Bulb Drain/Tube Drainage Sanguineous Device Location BACK Last Modified By: PURA PEREZ RN 08/11/21 09:20:31 [facility] IntraOp Dressing and Packing Entry 1 Type Dressing Location BACK Wound Dressing Item Occlusive dressing Applied By ANAT TIAN PA Other Comments COVADERMS AND NEOSPORIN Last Modified By: PURA PEREZ RN 08/11/21 09:20:57 [facility] IntraOp Fire Risk Assessment Entry 1 Fire [...] Modified By: PURA PEREZ RN 08/11/21 09:21:11 [facility] IntraOp General Case Correctional Maintenance Technician 1 Case Information OR OR 10 [facility] Case Level 1 Room Verified Yes Wound Class 1 - Clean Specialty Neurosurgery Anesthesia Type General ASA Class 2 Diagnosis Preop Diagnosis LUMBAR SPONDYLOLISTHESIS Postop Same As Preop No Postop Diagnosis SEE DRS POST OP NOTES Wound Class Definitions Last Modified By: PURA PEREZ RN 08/11/21 09:21:36 [facility] IntraOp Implant Log Entry 1 Entry 2 Entry 3 Type Tissue Implant Implant (Synthetic) Implant (Synthetic) (Biologic) Implant Log Implant Type Tissue Implant Type Implant BONE VIVIGEN FRMBLE BONE PUTTY STIMULAN CAGE EIT PLIF H 11MM 8D Identification [id number] [id number] Description Implant Quantity 1 1 1 Implant Site LUMBAR SPINE LUMBAR SPINE LUMBAR SPINE Implant [id number] Identification Model Number Implant Identification Serial Number Implant [id number] Identification Lot Number Implant Lifenet:[employer]ee [employer] J&J:Depuy:Depuy Spine Identification Transplant Srv Repair Manager Name: Implant [id number] Identification Catalog Number Implant Size Implant Has an Yes Yes Yes Expiration Date Implant Expiration 07/26/22 07/09/23 08/08/25 Date Wasted Radioactive Material Time Implanted Tissue Implant Continue for Tissue Implant Documentation Tissue Identification Number Graft Prep Per Yes Yes Repair Manager Instructions: Tissue Preparation Method: Reconstitution Solution: Reconstitution Solution Lot Number Reconstitution Solution Expiration Date: Thawing Solution Thawing Solution Lot Number Thawing Solution Expiration Date Preparation Materials, Other Preparation Materials, Other Lot Number Preparation Materials, Other Expiration Date Tissue Prepared/Processed By Repair Manager Yes Paperwork Completed Implant Type Comment Last Modified By: PURA PEREZ RN SMITH, MYRIAH L., RN SMITH, MYRIAH L., RN 08/11/21 10:12:40 08/11/21 10:13:58 08/11/21 10:50:20 Entry 4 Entry 5 Entry 6 Type Implant (Synthetic) Implant (Synthetic) Implant (Synthetic) Implant Log Implant Type Tissue Implant Type Implant CAGE EIT PLIF H 11MM 8D CAGE EIT PLIF H 11MM 8D CEMENT SPINAL Identification [id number] 04/06-057709 [id number] Description Implant Quantity 1 1 1 Implant Site LUMBAR SPINE LUMBAR SPINE LUMBAR SPINE Implant Identification Model Number Implant Identification Serial Number Implant [id number] Identification Lot Number Implant J&J:Depuy:Depuy Spine J&J:Depuy:Depuy Spine J&J:Depuy:Depuy Spine Identification Repair Manager Name: Implant [id number] Identification Catalog Number Implant Size Implant Has an Yes Yes Yes Expiration Date Implant Expiration 09/08/25 12/07/25 06/08/23 Date Wasted Radioactive Material Time Implanted Tissue Implant Continue for Tissue Implant Documentation Tissue Identification Number Graft Prep Per Repair Manager Instructions: Tissue Preparation Method: Reconstitution Solution: Reconstitution Solution Lot Number Reconstitution Solution Expiration Date: Thawing Solution Thawing Solution Lot Number Thawing Solution Expiration Date Preparation Materials, Other Preparation Materials, Other Lot Number Preparation Materials, Other Expiration Date Tissue Prepared/Processed By Repair Manager Paperwork Completed Implant Type Comment Last Modified By: PURA PEREZ RN SMITH, MYRIAH L., RN SMITH, MYRIAH L., RN 08/11/21 10:50:20 08/11/21 10:50:20 08/11/21 10:54:31 Entry 7 Entry 8 Entry 9 Type Implant (Synthetic) Implant (Synthetic) Implant (Synthetic) Implant Log Implant Type Hardware Hardware Hardware Tissue Implant Type Implant SCR SPNE LOUISA FIX SCR SPNE LOUISA FIX SCR BN VPR T27 9X90MM Identification [id number] Description Implant Quantity 4 4 2 Implant Site OP SITE OP SITE OP SITE Implant Identification Model Number Implant Identification Serial Number Implant Identification Lot Number Implant J&J:Depuy:Depuy Spine J&J:Depuy:Depuy Spine J&J:Depuy:Depuy Spine Identification Repair Manager Name: Implant [id number] Identification Catalog Number Implant Size Implant Has an Expiration Date Implant Expiration Date Wasted Radioactive Material Time Implanted Tissue Implant Continue for Tissue Implant Documentation Tissue Identification Number Graft Prep Per Repair Manager Instructions: Tissue Preparation Method: Reconstitution Solution: Reconstitution Solution Lot Number Reconstitution Solution Expiration Date: Thawing Solution Thawing Solution Lot Number Thawing Solution Expiration Date Preparation Materials, Other Preparation Materials, Other Lot Number Preparation Materials, Other Expiration Date Tissue Prepared/Processed By Repair Manager Paperwork Completed Implant Type Comment Last Modified By: PURA PEREZ RN SMITH, MYRIAH L., RN SMITH, MYRIAH L., RN 08/11/21 11:24:38 08/11/21 11:24:38 08/11/21 11:24:38 Entry 10 Entry 11 Type Implant (Synthetic) Implant (Synthetic) Implant Log Implant Type Hardware Hardware Tissue Implant Type Implant MIS LARRY PLY SCRW SET MATT PRE-LORD W/LINE Identification [id number] Description Implant Quantity 10 2 Implant Site OP SITE OP SITE Implant Identification Model Number Implant Identification Serial Number Implant Identification Lot Number Implant J&J:Depuy:Depuy Spine J&J:Depuy:Depuy Spine Identification Repair Manager Name: Implant [id number] Identification Catalog Number Implant Size Implant Has an Expiration Date Implant Expiration Date Wasted Radioactive Material Time Implanted Tissue Implant Continue for Tissue Implant Documentation Tissue Identification Number Graft Prep Per Repair Manager Instructions: Tissue Preparation Method: Reconstitution Solution: Reconstitution Solution Lot Number Reconstitution Solution Expiration Date: Thawing Solution Thawing Solution Lot Number Thawing Solution Expiration Date Preparation Materials, Other Preparation Materials, Other Lot Number Preparation Materials, Other Expiration Date Tissue Prepared/Processed By Repair Manager Paperwork Completed Implant Type Comment Last Modified By: PURA PEREZ RN SMITH, MYRIAH L., RN 08/11/21 11:24:38 12/03/21 11:24:38 [facility] IntraOp Implant Log Audit 08/11/21 11:24:38 Wood Type Finisher: VANDA Modifier: VANDA <+> 7 Implant Identification Description <+> 7 Implant Identification Repair Manager Name: <+> 7 Implant Site <+> 7 Implant Quantity <+> 7 Implant Identification Catalog Number <+> 7 Implant Type <+> 7 Type <+> 8 Implant Identification Description <+> 8 Implant Identification Repair Manager Name: <+> 8 Implant Site <+> 8 Implant Quantity <+> 8 Implant Identification Catalog Number <+> 8 Implant Type <+> 8 Type <+> 9 Implant Identification Description <+> 9 Implant Identification Repair Manager Name: <+> 9 Implant Site <+> 9 Implant Quantity <+> 9 Implant Identification Catalog Number <+> 9 Implant Type <+> 9 Type <+> 10 Implant Identification Description <+> 10 Implant Identification Repair Manager Name: <+> 10 Implant Site <+> 10 Implant Quantity <+> 10 Implant Identification Catalog Number <+> 10 Implant Type <+> 10 Type <+> 11 Implant Identification Description <+> 11 Implant Identification Repair Manager Name: <+> 11 Implant Site <+> 11 Implant Quantity <+> 11 Implant Identification Catalog Number <+> 11 Implant Type <+> 11 Type 08/11/21 10:54:31 Wood Type Finisher: VANDA Modifier: VANDA <+> 6 Implant Identification Description <+> 6 Implant Identification Lot Number <+> 6 Implant Identification Repair Manager Name: <+> 6 Implant Expiration Date <+> 6 Implant Site <+> 6 Implant Quantity <+> 6 Implant Identification Catalog Number <+> 6 Implant Has an Expiration Date <+> 6 Type 08/11/21 10:50:20 Wood Type Finisher: VANDA Modifier: VANDA <+> 3 Implant Identification Description <+> 3 Implant Identification Lot Number <+> 3 Implant Identification Repair Manager Name: <+> 3 Implant Expiration Date <+> 3 Implant Site <+> 3 Implant Quantity <+> 3 Implant Identification Catalog Number <+> 3 Implant Has an Expiration Date <+> 3 Type <+> 4 Implant Identification Description <+> 4 Implant Identification Lot Number <+> 4 Implant Identification Repair Manager Name: <+> 4 Implant Expiration Date <+> 4 Implant Site <+> 4 Implant Quantity <+> 4 Implant Identification Catalog Number <+> 4 Implant Has an Expiration Date <+> 4 Type <+> 5 Implant Identification Description <+> 5 Implant Identification Lot Number <+> 5 Implant Identification Repair Manager Name: <+> 5 Implant Expiration Date <+> 5 Implant Site <+> 5 Implant Quantity <+> 5 Implant Identification Catalog Number <+> 5 Implant Has an Expiration Date <+> 5 Type 08/11/21 10:13:58 Wood Type Finisher: VANDA Modifier: CHRISML <+> 2 Implant Identification Description <+> 2 Implant Identification Lot Number <+> 2 Implant Identification Repair Manager Name: <+> 2 Implant Expiration Date <+> 2 Implant Site <+> 2 Implant Quantity <+> 2 Implant Identification Catalog Number <+> 2 Graft Prep Per Repair Manager Instructions: <+> 2 Implant Has an Expiration Date <+> 2 Type [facility] IntraOp Intraoperative Assessment Entry 1 Handoff Method [...] Modified By: PURA PEREZ RN 08/11/21 09:21:50 [facility] IntraOp Intraoperative Equipment Entry 1 Type Equipment Equipment Equipment Waste Management System ID Number [id number] Intraop Monitoring Antiembolic Devices Antiembolic Devices Sequential compression device, knee high Antiembolic Device Bilateral Location Antiembolic Device [id number] ID Number Scopes Photo/Video Documentation Last Modified By: PURA PEREZ RN 08/11/21 09:23:05 [facility] IntraOp Medication Admin Entry 1 Entry 2 Entry 3 Medication/Irrigant lidocaine 1% w/ Marcaine 0.25% 30ml Neosporin 15Gm ointment epinephrine 1:100,000 vial - [id number] - [id number] 30ml vial - [id number] Combo Med List Time Administered Route of LOCAL LOCAL TOPICAL Administration Dose Dose 20 30 Unit of Measure ml ml Volume Administered By CARLOS DAMON TUTT, MATTHEW PAIGE, CULLER, JONATHAN, PA MD-SNU -SNU Procedure Irrigation Irrigant Volume In Irrigant Volume Out Last Modified By: PURA PEREZ RN SMITH, MYRIAH L., RN SMITH, MYRIAH L., RN 08/11/21 09:24:34 08/11/21 09:24:34 08/11/21 09:24:34 Entry 4 Entry 5 Entry 6 Medication/Irrigant SPNG SURGFOAM thrombin 5000units vancomycin 1Gm vial - [id number] topical powder - [id number] Combo Med List 1 - Combo Med [...] 2ml vancomycin 1Gm vial - injection - [id number] Combo Med List Time Administered Route of ANTIBIOTIC BEADS ANTIBIOTIC BEADS Administration Dose Dose 3 1 Unit of Measure ml gram Volume Administered By CARLOS DAMON TUTT, MATTHEW PAIGE, MD-SNU MD-SNOvidio Procedure Irrigation Irrigant Volume In Irrigant Volume Out Last Modified By: PURA PEREZ RN SMITH, MYRIAH L., RN 08/11/21 10:27:09 08/11/21 10:27:09 [facility] IntraOp Medication Admin Audit 08/11/21 10:27:09 Wood Type Finisher: VANDA Modifier: VANDA <+> 7 Medication/Irrigant <+> 7 Route of Administration <+> 7 Administered By <+> 7 Dose <+> 7 Unit of Measure <+> 8 Medication/Irrigant <+> 8 Route of Administration <+> 8 Administered By <+> 8 Dose <+> 8 Unit of Measure [facility] IntraOp Patient Positioning Entry 1 Procedure Lumbar [...] Modified By: PURA PEREZ RN 08/11/21 09:25:24 [facility] IntraOp Sign In Entry 1 Patient, Site, [...] Modified By: PURA PEREZ RN 08/11/21 09:25:37 [facility] IntraOp Sign Out Entry 1 RN Confirmation [...] Modified By: PURA PEREZ RN 08/11/21 12:05:58 [facility] IntraOp Sign Out Audit 08/11/21 12:05:58 Wood Type Finisher: VANDA Modifier: CHRISML <+> 1 RN Sign Out Signature Date/Time [facility] IntraOp Skin Prep Entry 1 Procedure Lumbar Fusion Posterior 3 Level Prescribed Yes Pre-Surgical Prep Completed Prep Area BACK Intraop Prep Integumentary WDL Assessment WDL Prep Agents Alcohol, Chlorhexadine gluconate, DuraPrep Prep by KEO BEACH RN Hair Removal Methods No hair removal performed Last Modified By: PURA PEREZ RN 08/11/21 09:31:25 [facility] IntraOp Surgical Procedures Entry 1 Procedure Lumbar Fusion Posterior 3 Level Additional L3-S1 PLIF, ILIAC Procedure BOLTS WITH ZIEHM , Description SCREW AUGMENTATION Primary Procedure Yes Primary Surgeon CARLOS DAMON MD-SNU Start 08/11/21 09:09:00 Stop 08/11/21 11:59:00 Anesthesia Type General Specialty Neurosurgery Wound Class 1 - Clean Last Modified By: PURA PEREZ RN 08/11/21 12:06:12 [facility] IntraOp Surgical Procedures Audit 08/11/21 12:06:12 Wood Type Finisher: VANDA Modifier: SMITHML 1 <*> Procedure Lumbar Fusion Posterior 3 Level 1 <+> Stop 1 <*> Additional Procedure Description L3-S1 PLIF, ILIAC BOLTS WITH ZEIHM , SCREW AUGMENTATION 08/11/21 11:01:43 Wood Type Finisher: VANDA Modifier: SMITHML 1 <*> Procedure Lumbar Fusion Posterior 3 Level 1 <*> Additional Procedure Description L3-S1 PLIF, POSSIBLE ILIAC BOLTS WITH ZEIHM [facility] IntraOp Temp Regulation Devices Entry 1 Temp Regulation Temperature Forced Air Warming Regulation Device device, Room temperature, Warm blankets Temperature 32102 Regulation Device Serial/Unit Number Temperature Upper body Regulation Site Temperature ARSENIO DAS NA Regulation Device Applied by Last Modified By: PURA PEREZ RN 08/11/21 09:32:10 [facility] IntraOP Time Out Entry 1 Procedure to [...] Modified By: PURA PEREZ RN 08/11/21 09:09:01 [facility] IntraOp X-Ray and Images Entry 1 X-Ray/Imaging Type Other Fluoroscopy Type Other Site BACK Stock Worker Name SRINATH THOMAS Protective Devices Yes Used X-Ray and Imaging CURVE AND ZEIHM FOR Comment INTRAOPERATIVE GUIDANCE Last Modified By: PURA PEREZ RN 08/11/21 09:33:47 Case Comments <None> Finalized By: MONIQUE LOWERY Document Signatures Signed By: PURA EPREZ RN 08/11/21 12:06 MONIQUE LOWERY 08/14/21 13:12 Unfinalized History Date/Time Username Reason for Unfinalizing Freetext Reason for Unfinalizing 08/14/21 13:09 GAGE Correct Billing Electronically signed by Yolanda [facility] Conversion Stem Mounter Cerner at 12/28/2022 7:41 PM CDT documented in this encounter Plan of Treatment Not on file documented as of this encounter Visit Diagnoses Not on filedocumented in this encounter
--- OUTSIDE RECORDS SUMMARY | 2025-07-22 09:41 | XMS_ITS | Encounter Summary ---
Author Organization [employer] ([place], [place], [place], [place], [place]) Address [address] [place] [address] Care Team Providers Care Manufacturers Representative Name Role Phone Unavailable Primary Care Provider Unavailabl e Encounter Details Date Type Department Care Team (Late st Contact Info) Description 08/14/2021 Transcribed Document [facility] [place] Medicine [facility] [place] [address] ProviderMaxine MD [address] [place] [address] Social History Tobacco Use Types [...] - Historical ProviderMD - 08/14/2021 2:42 PM NURSING EDUCATION CONSULTANT Initial Discharge Planning Entered On: 08/14/2021 14:46 EST Performed On: 08/14/2021 14:42 EST by CHA HENNESSY RN-Human Resources Executive Assistant Initial Assessment I Previously Documented Living Environment : No qualifying data available. Living Situation : Home Patient Lives With : Significant other(s) Is the Patient a Caregiver at Home? : No Emergency Contact #1 : Joleen Romo Emergency Contact #1 cell Emergency Contact #1 Relationship : daughter Emergency Contact #2 : Radhika Jd Emergency Contact #2 cell Emergency Contact #2 Relationship : daughter Enter Doctors Name : NERI RODRIGUEZ (REF)[facility] Does Patient have PCP Listed? : Yes CHA HENNESSY RN-Human Resources Executive Assistant - 08/14/2021 14:42 EST Initial Assessment II Sensory and Motor Deficits : None Current Home Treatments and Equipment : None Does the Patient have a Floor to SNF Benefit? : No CHA HENNESSY RN-Human Resources Executive Assistant - 08/14/2021 14:42 EST Discharge Needs I Anticipated Discharge Date : 08/14/2021 EST Anticipated Discharge To, CM : Home with home health Current Home Treatment/Equipment : Current Home Treatment/Equipment No qualifying data available. Post Acute/Home Treatments : Bedside commode, Walker Documentation Status Complete : Yes CHA HENNESSY RN-Human Resources Executive Assistant - 08/14/2021 14:42 EST Discharge Needs II Professional Skilled Services : Professional Skilled Services No qualifying data available. Needs Assistance with Transportation : No Discharge Options Discussed with Patient : DME, Home Health Patient Discharge Goal : Home health care CHA HENNESSY RN-Human Resources Executive Assistant - 08/14/2021 14:42 EST Narrative Note Narrative Note : 50yo female pt s/p L3-iliac bolts PLIF and lami. PT cleared pt for home with HH. Met with pt at bedside to discuss DCP. Pt lives with her SO. She denies use of DME/HH/rehab stays. She needs a FRW and BSC and has no DME provider preference. Obtained them from [facility] and they have been delivered. Pt agrees to for PT and has no HUMAN PERFORMANCE CONSULTANT prefrence. Referral sent to [facility] via [facility] and confirmed acceptance with Giulia. No other CM needs noted. CHA HENNESSY RN-Human Resources Executive Assistant - 08/14/2021 14:42 EST documented in this encounter Plan of Treatment Not on file documented as of this encounter Visit Diagnoses Not on filedocumented in this encounter
--- OUTSIDE RECORDS SUMMARY | 2025-07-22 09:41 | XMS_ITS | Encounter Summary ---
Author Organization [employer] ([place], [place], [place], [place], [place]) Address [address] [place] [address] Care Team Providers Care Foot Doctor Name Role Phone Unavailable Primary Care Provider Unavailabl e Encounter Details Date Type Department Care Team (Late st Contact Info) Description 08/13/[address] [facility] Neu[facility] - [employer] [address] [employer] [address] [facility] [address] [place] [address] Rhiannon Biggs Jr., MD [address] [place] [address] [address] [place] [address] Social History Tobacco Use Types [...]
--- OUTSIDE RECORDS SUMMARY | 2025-07-22 09:41 | XMS_ITS | Encounter Summary ---
Author Organization [employer] ([place], [place], [place], [place], [place]) Address [address] [place] [address] Care Team Providers Care Hop Picker Name Role Phone Unavailable Primary Care Provider Unavailabl e Encounter Details Date Type Department Care Team (Late st Contact Info) Description 08/11/2021 Transcribed Document [facility] Neurology - [address] [facility] [address] [place] [address] Edwin Delgado MD [address] [facility] [address] [place] [address] Social History Tobacco Use Types [...] 4. Intraoperative CT scan with stereotactic navigation. LASER SPECIALIST: Narendra Garcia PA-C. TYPE OF ANESTHESIA: GEA. DESCRIPTION OF [...] in the usual freehand techniques and the Eximia system, pedicle screws were placed at L3, [...] 300 mL. DRAINS: [place]. COMPLICATIONS: None. /[id number] Edwin Delgado MD MPT/AQ / MPT / MODL /[id number] CC: documented in this encounter Plan of Treatment Not on file documented as of this encounter Visit Diagnoses Not on filedocumented in this encounter
--- OUTSIDE RECORDS SUMMARY | 2025-07-22 09:41 | XMS_ITS | Encounter Summary ---
Author Organization [employer] ([place], [place], [place], [place], [place]) Address [address] [place] [address] Care Team Providers Care Adon Name Role Phone Unavailable Primary Care Provider Unavailabl e Encounter Details Date Type Department Care Team (Late st Contact Info) Description 08/14/2021 Transcribed Document [facility] [place] [facility] [place] [address] ProviderMaxine MD [address] [place] [address] Social History Tobacco Use Types [...] - Historical ProviderMD - 08/14/2021 2:46 PM STUDENT Final Discharge Planning Entered On: 08/14/2021 14:46 EST Performed On: 08/14/2021 14:46 EST by CHA HENNESSY RN-Matching Machine Operator Final Discharge Planning Discharge Arrangements : Patient Post-Acute Information Patient Name: SERA MATTHEWS Gender: Female : [birth year] Age: 50 Years [place] Referral(s): Service: Organization: Business Address: Phone Number: Home Care Physician Services [facility] - [address], [address], [place], [address] Durable Medical Equipment [employer] - [address], [address] Patient Offered Choice/Affiliations Explained : [...] Services (Related/SOC within 3 days)-06 CHA HENNESSY RN-Matching Machine Operator - 08/14/2021 14:46 EST documented in this encounter Plan of Treatment Not on file documented as of this encounter Visit Diagnoses Not on filedocumented in this encounter
--- OUTSIDE RECORDS SUMMARY | 2025-07-22 09:41 | XMS_ITS | Encounter Summary ---
Author Organization [employer] ([place], [place], [place], [place], [place]) Address [address] [place] [address] Care Team Providers Care Pill Maker Name Role Phone Unavailable Primary Care Provider Unavailabl e Encounter Details Date Type Department Care Team (Late st Contact Info) Description 08/14/2021 Transcribed Document [facility] [place] [facility] [place] [address] ProviderMaxine MD [address] [place] [address] Social History Tobacco Use Types [...] - Historical ProviderMD - 08/14/2021 11:16 AM STAFF MECHANICAL ENGINEER Meds to Bed Enrollment Entered On: 08/14/2021 [...]
--- OUTSIDE RECORDS SUMMARY | 2025-07-22 09:41 | XMS_ITS | Encounter Summary ---
Author Organization [employer] ([place], [place], [place], [place], [place]) Address [address] [place] [address] Care Team Providers Care Bilingual Secretary Name Role Phone Unavailable Primary Care Provider Unavailabl e Encounter Details Date Type Department Care Team (Late st Contact Info) Description 08/13/2021 Transcribed Document [facility] [place] [facility] [place] [address] ProviderMaxine MD [address] [place] [address] Social History Tobacco Use Types [...] - Historical ProviderMD - 08/13/2021 10:00 PM ADMINISTRATION VICE PRESIDENT Pain Assessment Entered On: 08/14/2021 0:50 EST Performed On: 08/14/2021 0:03 EST by MELLY BROWN RN Intervention Information: acetaminophen Performed by MELLY BROWN RN on 08/13/2021 23:03:00 EST acetaminophen,650mg Oral Pain Assessment Pain Assessment : Follow-up assessment Pain Scale Goal : 5 Pain Improved by Intervention : Yes MELLY BROWN RN - 08/14/2021 0:50 EST documented in this encounter Plan of Treatment Not on file documented as of this encounter Visit Diagnoses Not on filedocumented in this encounter
--- OUTSIDE RECORDS SUMMARY | 2025-07-22 09:41 | XMS_ITS | Encounter Summary ---
Author Organization [employer] ([place], [place], [place], [place], [place]) Address [address] [place] [address] Care Team Providers Care School Based Therapist Name Role Phone Unavailable Primary Care Provider Unavailabl e Encounter Details Date Type Department Care Team (Late st Contact Info) Description 08/12/2021 Transcribed Document [facility] [place] [facility] [place] [address] ProviderMaxine MD [address] [place] [address] Social History Tobacco Use Types [...] - Historical ProviderMD - 08/12/2021 5:00 PM RETAIL FIELD MERCHANDISER Chart Check - Review Order Profile Entered On: 08/12/2021 15:51 EST Performed On: 08/12/2021 17:00 EST by ELPIDIO GARCIA RN Chart Check Powerplans Initiated/Discontinued as Appropriate : Yes All Active Orders Reviewed : Yes ELPIDIO GARCIA RN - 08/12/2021 15:51 EST Electronically signed by Yolanda [facility] Conversion Coreroom Foundry Laborer [place] at 12/28/2022 8:02 PM CDT documented in this encounter Plan of Treatment Not on file documented as of this encounter Visit Diagnoses Not on filedocumented in this encounter
--- OUTSIDE RECORDS SUMMARY | 2025-07-22 09:41 | XMS_ITS | Encounter Summary ---
Author Organization [employer] ([place], [place], [place], [place], [place]) Address [address] [place] [address] Care Team Providers Care Tool Trouble Shooter Name Role Phone Unavailable Primary Care Provider Unavailabl e Encounter Details Date Type Department Care Team (Late st Contact Info) Description 08/14/2021 Transcribed Document [facility] [place] [facility] [place] [address] ProviderMaxine MD [address] [place] [address] Social History Tobacco Use Types [...] - Historical ProviderMD - 08/14/2021 8:52 AM MANAGEMENT RECRUITER UM Authorization Entered On: 08/14/2021 8:52 EST Performed On: 08/14/2021 8:52 EST by Sawthi Yancey Rn-Utilization Review Primary Insurance Authorization Authorization and Policy Numbers : Insurance 1 Health Plan: [facility] Policy Number: [id number] Authorization Number: [id number] Insurance Primary Name : Esperanza [id number] Authorization Status-Primary : Admit approved Authorization Number-Primary : [id number] Number of Days Authorized-Primary : 1 Day(s) Authorized Service Begin Date-Primary : 08/11/2021 EST Authorized Service End Date-Primary : 08/12/2021 EST Authorization Comments-Primary : CLINICAL FGAXED FOR C/S DOS 08/13 [employer] Historical Authorization Comments-Primary : Comment 1: pt is aramis for INPT lumbar fusion posterior 3 level on Saturday08-11-21 per STAR [place] approved 2 days INPT auth# [id number] (JOSEFINA ALMONTE, Wash And Greaser 08/09/2021 13:43) Swathi Yancey Rn-Utilization Review - 08/14/2021 8:52 EST Electronically signed by [facility] Conversion Regional Economic Liaison Cerner at 12/28/2022 7:42 PM CDT documented in this encounter Plan of Treatment Not on file documented as of this encounter Visit Diagnoses Not on filedocumented in this encounter
--- OUTSIDE RECORDS SUMMARY | 2025-07-22 09:41 | XMS_ITS | Encounter Summary ---
Author Organization [employer] ([place], [place], [place], [place], [place]) Address [address] [place] [address] Care Team Providers Care Fern Picker Name Role Phone Unavailable Primary Care Provider Unavailabl e Encounter Details Date Type Department Care Team (Late st Contact Info) Description 08/12/2021 Transcribed Document [facility] [place] [facility] [place] [address] ProviderMaxine MD [address] [place] [address] Social History Tobacco Use Types [...] - Historical ProviderMD - 08/12/2021 2:00 PM WELL DRILL OPERATOR CABLE TOOL Pain Assessment Entered On: 08/12/2021 15:49 EST [...] version of the form. Electronically signed by Yolanda, Steven Conversion Regulatory Affairs Consultant Cerner at 12/28/2022 8:00 PM CDT documented in this encounter Plan of Treatment Not on file documented as of this encounter Visit Diagnoses Not on filedocumented in this encounter
--- OUTSIDE RECORDS SUMMARY | 2025-07-22 09:41 | XMS_ITS | Encounter Summary ---
Author Organization [employer] ([place], [place], [place], [place], [place]) Address [address] [place] [address] Care Team Providers Care Metrologist Name Role Phone Unavailable Primary Care Provider Unavailabl e Encounter Details Date Type Department Care Team (Late st Contact Info) Description 08/08/2021 Transcribed Document [facility] [place] [facility] [place] [address] ProviderMaxine MD [address] [place] [address] Social History Tobacco Use Types [...] - Historical ProviderMD - 08/08/2021 2:24 PM CONVERTIBLE SOFA BEDSPRING TESTER PAT Adult Entered On: 08/08/2021 14:35 EST [...] Source : Measured Height Entry Format : Gaston Height, Feet : 0 ft(Converted to: 0 cm, 0 Inch) Height, Inches : 66.25 Inch(Converted to: 5 ft 6 Inch, 168.27 cm) Clinical Height : 168.28 cm Weight Source : Standing scale Weight Entry Format : Gaston Clinical Dosing Weight : 93.69 kg Weight, Pounds : 206 lb Weight, Ounces : 2 oz Body Surface Area (BSA) : 2.03 m2 Body Mass Index : 33.1 kg/m2 ([place]) [place] Body Weight : 59 kg SERA ZIMMERMAN RN - 08/09/2021 11:27 EST Health Histories Smoking Status : Former smoker, quit more than 30 days ago Smokeless Tobacco Status : Never Implant/Device Type, Heavy Media Operator and Model : left foot screw, dental [...] JERI LARA RN - 08/08/2021 14:24 EST [place] Suicide Severity Rating Scale (C-SSRS) CSSRS Past [...] : Depression Currently in Unsafe Situation : No JERI LARA RN - 08/08/2021 14:24 EST Teaching/Learning Assessment [...] Obtained From : Patient Primary Language : Pashto Communication Barrier : None Manager Pest Needed : No JERI LARA RN - 08/08/2021 14:24 EST Jonnathan Scale [...]
--- OUTSIDE RECORDS SUMMARY | 2025-07-22 09:41 | XMS_ITS | Encounter Summary ---
Author Organization [employer] ([place], [place], [place], [place], [place]) Address [address] [place] [address] Care Team Providers Care Drapery Worker Name Role Phone Unavailable Primary Care Provider Unavailabl e Encounter Details Date Type Department Care Team (Late st Contact Info) Description 08/12/2021 Transcribed Document [facility] Radiology [address] [place] [address] Silva Merlos MD [facility] [address] [address] Social History Tobacco Use Types [...] is a 50 yo female admitted to [facility] per Dr. Delgado for an L3-S1 PLIF with possible iliac bolts. Preoperatively patient was found to have advanced spondylolisthesis of the lumbar spine and elected surgical intervention after failing conservative treatment. Patient is followed perioperatively while hospitalized for medical management. Initial visit in PACU -- Denies prior stroke or seizure. Denies [place], CHF or cardiac arrhythmia. Denies DM. Denies [...] mg, Oral, Daily Vitamin B12 , IntraMuscular, [id number] ROS: Constitutional: [No fevers, chills, sweats] very [...] (AUG 11 12:40) 100 (AUG 12 03:06) obese white woman in no distress; pleasant, [...]
--- OUTSIDE RECORDS SUMMARY | 2025-07-22 09:41 | XMS_ITS | Encounter Summary ---
Author Organization [employer] ([place], [place], [place], [place], [place]) Address [address] [place] [address] Care Team Providers Care Sawmill Tally Clerk Name Role Phone Unavailable Primary Care Provider Unavailabl e Encounter Details Date Type Department Care Team (Late st Contact Info) Description 08/14/2021 Transcribed Document [facility] [place] [facility] [place] [address] ProviderMaxine MD [facility] [place] [address] Social History Tobacco Use Types [...] - Historical ProviderMD - 08/14/2021 12:57 PM VOCAL MUSIC TEACHER Discharge Summary, PT Entered On: 08/14/2021 12:59 [...] ANGELINE EDWARDS, PT - 08/14/2021 16:09 EST Senior Living Goals Mobility/Bed Mobility LTG PT Grid Goal [...] RUKHSANA PRYOR PTA - 08/14/2021 12:57 EST Electronically signed by Yolanda [facility] Conversion Dredge Mate Cerner at 12/28/2022 7:45 PM CDT documented in this encounter Plan of Treatment Not on file documented as of this encounter Visit Diagnoses Not on filedocumented in this encounter
--- OUTSIDE RECORDS SUMMARY | 2025-07-22 09:41 | XMS_ITS | Encounter Summary ---
Author Organization [employer] ([place], [place], [place], [place], [place]) Address [address] [place] [address] Care Team Providers Care Internet Marketing Specialist Name Role Phone Unavailable Primary Care Provider Unavailabl e Encounter Details Date Type Department Care Team (Late st Contact Info) Description 08/12/2021 Transcribed Document [facility] [place] [facility] [place] [address] ProviderMaxine MD [address] [place] [address] Social History Tobacco Use Types [...] - Historical ProviderMD - 08/12/2021 12:52 PM DIRECTOR OF PREMIUM SEAT SALES UM Authorization Entered On: 08/12/2021 12:52 EST Performed On: 08/12/2021 12:52 EST by Luisa Sinclair Rn-Utilization Review Primary Insurance Authorization Authorization and Policy Numbers : Insurance 1 Health [facility] Policy Number: [id number] Authorization Number: [id number] Insurance Primary Name : Esperanza [id number] Authorization Status-Primary : Admit approved Authorization Number-Primary : [id number] Number of Days Authorized-Primary : 1 Day(s) Authorized Service Begin Date-Primary : 08/11/2021 EST Authorized Service End Date-Primary : 08/12/2021 EST Historical Authorization Comments-Primary : Comment 1: pt is aramis for INPT lumbar fusion posterior 3 level on Saturday08-11-21 per ST[facility] [place] approved 2 days INPT auth# [id number] (JOSEFINA ALMONTE, Manager Branch 08/09/2021 13:43) Luisa Sinclair Rn-Utilization Review - 08/12/2021 12:52 EST Electronically signed by [facility] Conversion Drain Cleaner Plumber Cerner at 12/28/2022 7:53 PM CDT documented in this encounter Plan of Treatment Not on file documented as of this encounter Visit Diagnoses Not on filedocumented in this encounter
--- OUTSIDE RECORDS SUMMARY | 2025-07-22 09:41 | XMS_ITS | Encounter Summary ---
Author Organization [employer] ([place], [place], [place], [place], [place]) Address [address] [place] [address] Care Team Providers Care Bomb Squad Commander Name Role Phone Unavailable Primary Care Provider Unavailabl e Encounter Details Date Type Department Care Team (Late st Contact Info) Description 08/12/2021 Transcribed Document [facility] [place] [facility] [place] [address] ProviderMaxine MD [address] [place] [address] Social History Tobacco Use Types [...] - Historical ProviderMD - 08/12/2021 10:00 AM MACHINE VENEER REPAIRER Pain Assessment Entered On: 08/12/2021 15:46 EST [...]
--- OUTSIDE RECORDS SUMMARY | 2025-07-22 09:41 | XMS_ITS | Encounter Summary ---
Author Organization [employer] ([place], [place], [place], [place], [place]) Address [address] [place] [address] Care Team Providers Care Grinder Operator Surface Tool Name Role Phone Unavailable Primary Care Provider Unavailabl e Encounter Details Date Type Department Care Team (Late st Contact Info) Description 08/14/2021 Transcribed Document [facility] [place] Medicine [facility] [place] [address] ProviderMaxine MD [address] [place] [address] Social History Tobacco Use Types Packs/Day [...] - Historical ProviderMD - 08/14/2021 6:54 PM POLITICAL SCIENCE RESEARCH ASSISTANT Nursing Discharge Summary Entered On: 08/14/2021 18:55 [...] - 08/14/2021 18:54 EST Electronically signed by [facility] Conversion Staff Training And Development Manager Cerner at 12/28/2022 7:37 PM CDT documented in this encounter Plan of Treatment Not on file documented as of this encounter Visit Diagnoses Not on filedocumented in this encounter
--- OUTSIDE RECORDS SUMMARY | 2025-07-22 09:41 | XMS_ITS | Clinical Summary ---
Author Organization [facility] Address [address] [place] [address] Care Team Providers Care Flight Follower Name Role Phone Giovanny Fernando MD Primary Care Provider + [phone] Allergies No known active allergies Medications cyanocobalamin [...] (two) times a day. Active HYDROcodone-tamy taminophen ([place]) 5-325 MG tablet 3 Active levocetirizine (Xyzal) [...] (07/10/2022): Added automatically from request for surgery [id number] Primary osteoarthritis of one hip, right 022 Overview (04/10/2022): Added automatically from request for surgery [id number] Resolved Problems Problem Noted Date Diagnosed Date Resolved Date Right hip pain 04/25/2022 05/30/2025 Immunizations Immunization Administration Dates Next Due DTaP, [...] drink first t zafar in the morning (EYE-ASSISTANT MANAGER/EMBALMER) to steady your nerves or to get [...] [facility]-HIV Screening 1971 [facility]-Hepatitis C Screening 1971 [facility]-/Child/Adol SDOH Screenings 1971 [facility]- SDOH Screenings 1989 [facility]-Adult SDOH Screenings 1989 [facility]-Hepatitis B Vaccines (1 of 3 - 19+ 3-dose series) 1990 CT Colonography 2016 Colonoscopy 2016 FIT-DNA 2016 FIT 2016 FOBT 2016 Sigmoidoscopy 2016 [facility]-Colorectal Cancer Screening 2016 [facility]-Breast Cancer Screening 2021 [facility]-Zoster Vaccines (1 of 2) 2021 [facility]-Depression Screening 03/23/2025 03/23/2024 [id number] Vaccine ( season) 2025 06/29/2022, 12/16/2020, 11/18/2020 [facility]-Influenza Vaccine (#1) 05/10/202510/23, 06/11/2022, 05/31/2021, Additional [...] this topic Medical Devices Implanted Type Area Snuff Container Inspector Device Identifier Shelf Expiration Date Model / Serial / Lot Chg Shell R3 3 Hole Acet 50mm - [id number] Implanted:Qty: 1 on 11/14/2022 by Mello Pina MD at [facility] Hip Left: Hip [employer]-[id number] 07/29/2032 [id number] / / [id number] Chg Head Oxinium Fem 08/22 36 - [id number] Implanted:Qty: 1 on 11/14/2022 by Mello Pina MD at [facility] Hip Left: Hip [employer]-[id number] 08/10/2032 [id number] / / [id number] Liner R3 Xlpe 20deg 36mm X 50mm - [id number] Implanted:Qty: 1 on 11/14/2022 by Mello Pina MD at [facility] Liner Left: Hip [employer]-[id number] 04/20/2032 [id number] / / [id number] Chg Screw Ref Spher Head 40mm - [id number] Implanted:Qty: 1 on 11/14/2022 by Mello Pina MD at [facility] Screw Left: Hip [employer]-[id number] 05/09/2032 [id number] / / [id number] Chg Stem Anthology Ho Por Pl H - [id number] Implanted:Qty: 1 on 11/14/2022 by Mello Pina MD at [facility] Stem Left: Hip [employer]-[id number] 02/05/2032 [id number] / / [id number] Shell Trident Ii Cluster 48mm - [id number] Implanted:Qty: 1 on 04/25/2022 by Mello Pina MD at [facility] Right: Hip [employer] ([facility])-[id number] [id number] 02/20/2027 [id number] / / [id number] Insert X3 Mdm Restor 38 Mm Od 22 Mm Id X 7.7 Mm - [id number] Implanted:Qty: 1 on 04/25/2022 by Mello Pina MD at [facility] Right: Hip [employer] [facility] ([facility][id number] 68 11/01/2026 [id number] / / [id number] Screw 6.5mm Trident Low Profile Hex 25mm - [id number] Implanted:Qty: 1 on 04/25/2022 by Mello Pina MD at [facility] Right: Hip [employer] [facility] ([facility]1391 68 03/26/2027 [id number] / / [id number] Liner Mdm Cocr Liner 38mm D - [id number] Implanted:Qty: 1 on 04/25/2022 by Mello Pina MD at [facility] Right: Hip [facility] [facility]1391 68 02/12/2027 [id number] / / [id number] Hip Size 4 Accolade Ii 127 Deg - [id number] Implanted:Qty: 1 on 04/25/2022 by Mello Pina MD at [facility] Right: Hip [facility] [facility]1391 68 01/20/2027 [id number] / / [id number] Chg Head 22.2mm + 3 Lfit V40 - [id number] Implanted:Qty: 1 on 04/25/2022 by Mello Pina MD at [facility] Right: Hip [facility] ([facility])-1391 68 03/11/2027 [id number] / / [id number] Procedures Procedure Name Priority Date/Time Associated Diagnosis [...] Adults <6.0% Children and Adolescents <7.5% Source: [place] [employer]. Standards of medical care in diabetes,2017. Diabetes Care.2017:40 (suppl 1):S1-S135. HbA1c assay performed by an ion-exchange chromatography method that is certified traceable to the DCCT. us Braeden Cruz MD LAB BLOOD ORDERABLES Final R esult [facility] [address] [place] [address] from Last 3 Months or Most Recently [...] Patient has decision-making capacity? Yes Care Teams Flight Follower Relationship Specialty Start Date End Date Giovanny Fernando MD [address] [place] [address] PCP - General Internal Medicine 04/10/22
--- OUTSIDE RECORDS SUMMARY | 2025-07-22 09:41 | XMS_ITS | Encounter Summary ---
Author Organization [facility] ([place], [place], [place], [place], [place]) Address [address] [place] [address] Care Team Providers Care Top Flavor Attendant Name Role Phone Unavailable Primary Care Provider Unavailabl e Encounter Details Date Type Department Care Team (Late st Contact Info) Description 08/14/2021 Transcribed Document [facility] [place] Family [place] [facility] [address] ProviderMaxine MD [address] [place] [address] Social History Tobacco Use [...] - Historical ProviderMD - 08/14/2021 2:48 PM GREEN FEED ATTENDANT Stroke/Warfarin Instructions Entered On: 08/14/2021 14:49 EST Performed On: 08/14/2021 14:48 EST by NANCY BELL RN Stroke/Warfarin Instructions Stroke/TIA Discharge Ins : N/A Warfarin Discharge Ins : N/A NANCY BELL RN - 08/14/2021 14:48 EST Electronically signed by [facility] Conversion Inspector Weights And Measures Cerner at 12/28/2022 7:42 PM CDT documented in this encounter Plan of Treatment Not on file documented as of this encounter Visit Diagnoses Not on filedocumented in this encounter
--- OUTSIDE RECORDS SUMMARY | 2025-07-22 09:41 | XMS_ITS | Data Portability ---
Author Organization [facility] STEPHANIE ChristopherS [place] CLOSED Address [address] [place] [address] Care Team Providers Care Stereotyper Helper Name Role Phone GIOVANNY RODRIGUEZ Referring Provider JONATHON ODONNELL Primary Care Provider [phone] Assessment Encounter Date Assessment Date Assessment LastModified [...] therapy. We will have patient see her spray ii painter, Dr. Barragan. We will have patient referred to neurology for tremor evaluation per patient. Patient may follow-up as needed. Patient verbalized understanding of instructions and is agreeable to plan. -Seen by Dr. Delgado and myself [email or web address] Not available 11/22/2022 17:11:07 04/24/2023 04/24/2023 Essential [...] she knows to call anytime if needed. [email or web address] Not available 04/24/2023 08:45:11 06/06/2023 06/06/2023 Ms. [...] after intrathecal injection and was positional, so bvyz-gvqej-mimwhkm e headache would be a good explanation. [...] abnl. I assume she had CTA in [place]. Cortical vein thrombosis also might be a consideration. 3. Hand numbness - ?ulnar neuropathy - NCS was recently done and per pt normal. Discussed these things above. Will try primidone for tremor I do not have images to review and only have limited records from . At least I am going to try to get records from the ER in [facility] to be sure that CTA was done and to see what CT showed there. f/u few mos. [email or web address] Not available 08/12/2023 17:23:54 Plan of Treatment Reminders Order Date Submit Date Provider Last Modified By Organization Details Last Modified Time Details Appointments None recorded. Lab TSH, serum or plasma 2022 023 [facility], [facility] [place], [address], 09:59:16 Referral None recorded. Procedures None recorded. Surgeries None recorded. Imaging None recorded. Medication Orders primidone 50 mg tablet 2022 023 [facility], [address] [place] [address], [id number], 16:49:30 propranolol 20 mg tablet 2022 023 [facility], [address] [place] [address], [id number], 3 16:47:57 Patient TargetsNo targets recorded. Patient Instructions Encounter Date Encounter Id Patient Instructions Last Modified By Organization Details Last Modified Time 11/22/2022 [id number] CATEGORY DESCRIPTION MINUTES Prepare to see the patient (e.g. review of tests) 5 Obtain/review separately obtained history 5 Perform medically appropriate exam/evaluation 5 Order medications, tests, or procedures 5 Customer Service Officer/educate the patient/family/car egiver 5 Refer/communicate w/other healthcare professionals 5 Document clinical information into health record 5 Non-billable independent interp of results Non-billable care coordination TOTAL TIME 35 [id number] (15-29) 55468 (30-44) 31484 (45-59) 39455 (60-74) 64540 (10-19) 56013 (20-29) 35350 (30-39) 79518 (40-54) [email or web address] Not available 11/22/2022 17:11:44 05/27/2023 [id number] 1. Discussed options for treatment of sleep [...] what pathology shows and let her know. [email or web address] Not available 05/27/2023 12:38:30 08/12/2023 [id number] medical record request* - request notes from ER in [place], from April. [email or web address] Not available 08/21/2023 08:32:31 Reason for Referral None Reported. Results Created Date Observation Date Name Description Value Unit Range Abnormal Flag Note LastModifiedBy Organization Detail LastModifiedTime 04/24/20 23 04/24/2023 TSH TSH 1.240 u[IU] /mL 0.270- 4.200 normal Not Available [facility] [place], [address], 04/24/2023 09:59:16 05/27/20 23 05/27/2023 SURGI CYNDY [...] 11:10 Page 1 of 1 Not Available [facility] [address] [place] [address], [phone], 05/28/2023 11:10:37 Result Notes None recorded. Problems Name Problem SNOMED Code Status Onset Date Resolution Date Notes Provider Name and Address Organization Details Recorded Time Cervical radiculopat hy 89139909 Active 2017 CARLOS DELGADO MD [address] [place] [address], [phone], [facility] 8 09:56:11 Lumbar spondylolis thesis 6780884451780 02 Active 2020 ROBINSON BERNARD PA-C [address] [place] [address], [phone], [facility] 10:11:44 Problem Notes None recorded. Procedures Surgical History Date Name Laterality Status Provider Name and Address Organization Details Recorded Time 05/27/20 23 Excision BN Lesion; face, ears, eyelid, nose, lips, mucous membrane completed WINSTON SHEA MD [address] [place] [address], [phone], [facility] 05/27/2023 12:36:39 Other completed Rebecca Chand [facility] 01/09/2018 09:03:08 procedure on tonsils completed [facility] 08/27/2022 14:57:19 Partial Hysterectomy completed [facility] 08/27/2022 14:57:28 Back Surgery completed [facility] 08/27/2022 14:57:33 total replacement of hip completed [facility] 08/27/2022 14:57:41 Imaging Results None recorded. Procedure [...] Available Not Available Not Available Flucelvax Quad 2702-2590 (PF) 60 mcg (15 mcg x 4)/0.5 [...] in Arterial blood by Pulse oximetry Systolic And Diastolic Provider Name and Address Organization Details Last Updated DateTime 3 165.1 cm 38.3 kg/m2 906039. 35 g 87 /min 94 % 94 % 152/96 mm[Hg] Edvincharlie Nicole [facility] 3 08:20:35 Date Recorded Body height Body mass index (BMI) Body weight Body temperature Heart rate Systolic And Diastolic Provider Name and Address Organization Details Last Updated DateTime 3 165.1 cm 38.5 kg/m2 921264. 64 g 97.8 [degF] 71 /min 119/74 mm[Hg] Lawanda Stu [facility] 3 10:56:24 Date Recorded Body height Body mass index (BMI) Body weight Systolic And Diastolic Provider Name and Address Organization Details Last Updated DateTime 06/06/2023 165.1 cm 38.4 kg/m2 592490.84 g 122/82 mm[Hg] Rebecca Mannie [facility] 06/06/2023 10:49:49 Date Recorded Body height Body mass index (BMI) Body weight Heart rate Oxygen saturation Oxygen saturation in Arterial blood by Pulse oximetry Systolic And Diastolic Provider Name and Address Organization Details Last Updated DateTime 3 165.1 cm 38.1 kg/m2 191377. 65 g 69 /min 96 % 96 % 124/78 mm[Hg] Baylee Khan [facility] 16:22:56 Social History Question Answer Notes LastModified by Organizat ion Details LastModified Time Tobacco Smoking Status Former Smoker Rebecca Chand joesph, [facility] 01/09/2018 09:02:51 What Was The Date Of Your Most Recent Tobacco Screening? 04/24/2023 [email or web address] Information not available 04/24/2023 What Is Your Relationship Status? [email or web address] Information not available 08/27/2022 Has Tobacco Cessation Counseling Been Provided? No [email or web address] Information not available 08/27/2022 Sex: Unknown Functional Status Question Answer Note LastModified by Organizat ion Details LastModified Time Do you use any illicit or recreational drugs? No [email or web address] Information not available 08/27/2022 What is your level of alcohol consumption? None [email or web address] Information not available 08/27/2022 Mental Status None recorded. Family History Relationship Description Onset Age of this Age Resolved Age Notes LastModified by Organization Details LastModified Time Father Diabetes mellitus [email or web address] Not available 2022 10:58:37 Father Hypertensive disorder [email or web address] Not available 2022 10:58:09 Father Kidney disease [email or web address] Not available 2022 10:58:49 Father Family history of malignant neoplasm KIDNEY [email or web address] Not available 2021 14:56:36 Father Heart disease [email or web address] Not available 2022 10:57:58 Father Acute stroke [email or web address] Not avai lable 05/27/2023 10:58:28 Unspecified Relation Myocardial infarction [email or web address] Not available 11/2017 09:03:42 Unspecified Relation Cerebrovascu lar accident [email or web address] Not available 09:03:48 Brother Hypertensive disorder [email or web address] Not available 2022 10:58:11 Brother Diabetes mellitus [email or web address] Not available 2022 10:58:42 Medical History Condition Response Depression Y COPD Y Anxiety Disorder Y Arthritis Y Headaches Y Sleep Disorder Y Diabetes Y Hypertension Y Gynecological HistoryNo gynecological history recorded. Obstetrics History GPAL:G 0 P 0 0 0 0 Immunizations Vaccine Type Date Status Note Provider Nam e and Address Organization Details Recorded Time Influenza, recombinant, quadrivalent, PF 2 completed Rebecca Mannie [facility] 09/24/2022 10:24:35 COVID-19, mRNA, LNP-S, PF, 100 mcg/0.5mL dose or 50 mcg/0.25mL dose 1 completed Rebecca Mannie [facility] 09/24/2022 10:24:35 Hep A, adult 9 completed Rebecca Mannie [facility] 09/24/2022 10:24:35 Influenza, split virus, quadrivalent, preservative 7 completed Rebceca Mannie [facility] 09/24/2022 10:24:35 COVID-19, mRNA, LNP-S, PF, 100 mcg/0.5mL dose or 50 mcg/0.25mL dose 1 completed Rebecca Mannie [facility] 09/24/2022 10:24:35 Influenza, recombinant, quadrivalent, PF 1 completed Rebecca Mannie [facility] 09/24/2022 10:24:35 DTaP, 5 pertussis antigens 7 completed Rebecca Mannie [facility] 09/24/2022 10:24:35 COVID-19, mRNA, LNP-S, bivalent, PF, 50 mcg/0.5 mL or 25mcg/0.25 mL dose 2 completed Rebecca Mannie [facility] 09/24/2022 10:24:35 Influenza, split virus, quadrivalent, preservative 8 completed [facility] 10:24:35 Past Encounters Encounter ID Performer Location Encounter Start Date Encounter Closed Date Diagnosis/Indication Diagnosis SNOMED-CT Code Diagnosis ICD10 Code Diagnosis IMO Codes Diagnosis Note [id number] CARLOS DELGADO MD [facility] [address] [place] [address] 01/09/2018 08:54:11 01/09/2018 10:57:52 Cervical radiculopathy 07708388 M54.12 [id number] ROBINSON BERNARD [facility] [address] [place] [address] 07/13/2021 09:16:39 07/14/2021 08:20:43 Lumbar spondylolisthesis 7036668497 18387 M43.16 50-year-ol d female with right greater [...] We will have her meet with our professor of surgery today to schedule. We'll retain the patient's CD to use on the day of surgery. We will also check a set of standing flexion extension x-rays. pt seen by myself and dr delgado Addendum: Ordering a custom fitted LSO back brace to reduce pain by restrictin g mobility of the spine. [id number] CARLOS DELGADO MD SURGERY SCHEDULE [address] [place] [address] 08/24/2021 15:22:47 08/25/2021 08:55:41 [id number] CARLOS DELGADO MD [facility] CL[facility] [address] [place] [address] 08/28/2021 13:44:23 08/29/2021 08:20:20 [id number] CARLOS DELGADO MD [facility] CL[facility] [address] [place] [address] 09/18/2021 10:47:26 09/19/2021 08:55:14 Postoperative care [id number] Z48.89 [id number] VENICE ARRIAZA PA-C [facility] [address] [place] [address] 11/27/2021 09:20:42 11/27/2021 10:11:07 Postoperative care [id number] Z48.89 Patient is a 51-year-ol d female [...] AP lateral lumbar x-rays today at the [facility] S how stable placement of hardware with no evidence of loosening or complicati on [id number] JUAN LUIS HAWKINS PA-C [facility]I [facility] CLOSED [address] [address] 12/01/2021 10:51:31 12/01/2021 12:53:02 Pain of right hip joint 3993333095 41959 M25.551 Patient does have positive Ivory with tenderness over greater trochanter . Pain is more posterior as well into the piriformis . Plan: Medrol Dosepak and physical therapy referral. Hold on greater trochanter ic bursa injection today. [id number] ANAT TIAN PA-C [facility] [address] [place] [address] 12/25/2021 11:28:35 12/26/2021 16:23:20 Lumbar radiculopathy 766210415 M54.16 [id number] VENICE ARRIAZA PA-C [facility] [address] [place] [address] 03/19/2022 11:11:38 03/19/2022 15:15:32 Lumbar radiculopathy 395551875 M54.16 Patient is a 51-year-ol d female [...] any new imaging today Pain of ri ght hip joint 8510984521 50443 M25.551 Patient is set to see orthopedic s today. 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 We do think this could be the cause of a lot of her symptoms at this time. We are getting her set up for [facility] but if they are discussing surgery or any sort of interventi on with the hip she knows she can cancel the work hardening PT at that time. Regardless we will not be able to keep her off work anymore at this time. The work hardening physical therapy would be giving her the documented updated letters. She understand s this. [id number] MD CLARA [facility]AB[facility]O [facility] [address] [place] [address] 08/27/2022 14:32:52 08/27/2022 15:15:01 Urge incontinence of urine 56264137 N39.41 She was given 4-week samples of Gemtesa. She will follow-up at that time [id number] ROBINSON BERNARD PA-C [facility] CL[facility] [address] [place] [address] 09/24/2022 09:33:47 09/24/2022 12:09:26 Cervical radiculopathy 83533829 M54.12 52-year-ol d female with history of [...] help her neck pain get better faster. [id number] BALJIT DOUGLAS MD [facility] [address] [place] [address] 09/24/2022 10:58:07 09/24/2022 12:10:00 Urge incontinence of urine 73888718 N39.41 Follow-up 3 months [id number] DANYELLE ALVAREZ PA-C [facility] [address] [place] [address] 11/22/2022 10:29:37 11/23/2022 04:51:58 Cervical radiculopathy 08781268 M54.12 [id number] JERED MCKEE MD NEUROLOGY [facility] CLOSED [address] [place] [address] 04/24/2023 08:05:51 04/24/2023 08:49:11 Essential tremor 346730039 G25.0 [id number] WINSTON SHEA MD [place] [facility] [address] [place] [address] 05/27/2023 10:50:53 05/27/2023 12:22:22 Obstructive sleep apnea syndrome 02502504 G47.33 [facility] Physician: [place] (ordered by PCP Dr. Rodriguez)PSG Date: 12/06/2020 HI Using 4% Rule: 11Central/ Mixed Percentage : 0%BMI: 38.5DISE: pendingHas tried and failed/ret urned/does not wear anymore CPAP due to won't stay on Lesion of left ear 86693 03298 936679 H93.92 05/27/23- raised lesion of left shalonda bowl (Excision and biopsy performed In-Office) [id number] OLIVE HORNER PA-C [facility] [address] [place] [address] 06/06/2023 10:07:09 06/07/2023 04:43:11 Cervical spondylosis 580166682 M47.812 [id number] JERED MKCEE MD NEUROLOGY [facility] CLOSED [address] [place] [address] 08/12/2023 16:10:18 08/13/2023 04:29:41 Essential tremor 413878060 G25.0 Ischemic stroke 10878309 2 I63.9 Health Concerns Section Related Observation LastModified by Organization Detai ls LastModified Time None Recorded Concern Status LastModified by Organization Details LastModified Time None Recorded Advance Directives Directive None Recorded Payers Insurance Date Sequence Insurance Name Policy Number Policy Younger Covered Member ID Younger Member ID Guarantor Name 01/15/2025 PAYMENT PLAN Sera D Cassie 08/09/2023 1 [id number] [id number] Sera D Cassie [id number] Sera D Cassie 08/12/2023 1 *SELF PAY* Li sa Margarita Cassie 01/16/2024 1 [employer] (HMO) Sera D Cassie [id number] Sera D Cassie Notes Date Note Type Note Provider Name and Address Organization Details Recorded Time 11/22/2022 text/html ROS as noted in the HPI Patient is a 52-year-old female status post [...] the left upper extremity. DANYELLE ALVAREZ PA-C [address] [place], [address], [facility] 11/22/2022 17:11:56 04/24/2023 text/html This is a 52 year-old RH female seen at the request of Dr. [...] worsened tremor.No recent labs. JERED MCKEE MD [address] [place] [address], [address], [facility] 04/24/2023 08:45:42 05/27/2023 text/html Srea comes in today for consultation at the request of Dr. Giovanny Rodriguez MD for an evaluation of obstructive sleep apnea.She has been diagnosed with moderate sleep apnea.She has used CPAP in the past but this was intolerable. WINSTON SHEA MD [address] [place] [address], [phone], [facility] 05/27/2023 12:38:58 06/06/2023 text/html ROS as noted in the HPI Ms. Matthews is s/p L3-S1 PLIF with Dr. Delgado on 08/11/21. [...] and neurosurgery. she has follow-up with the [facility]. Her visit to was on [...] or 2 of improvement. OLIVE HORNER PA-C [facility] [place], [address], [facility] 06/06/2023 11:20:16 08/12/2023 text/html She was seen in April with essential tremor.Propranolol was started.She did not see benefit from this, so she stopped.I am not sure how long she took this.Remains with tremor, R>L hands. Hand have been going numb in recent weeks.She has numbness digits IV-V left hand, and she has tingling of the right forearm.She had NCS in [place] last week, and she was told this was normal.I do not have this report. Notably, she had stroke in May. HIstory per pt, and I reviewed records.On Saturday, she had intrathecal pain medicine as trial for possible pain pump. The next day, she woke up with bad headache - all over. Better when supine. Went to the ER in [facility]. Taken to the ER in [place]. Head CT showed a spot - ?mass - and she was sent to . No mass was seen. MRI there showed per report: 1. Mild bilateral frontal convexity subarachnoid hemorrhage, right greater than left.2. Punctate focus of restricted diffusion in the right parietal deep white matter consistent with acute infarct.She did not have any clear focal neurological symptoms, though [facility] note mentions visual field (VF) deficit and [...] she had the headache/stroke. JERED MCKEE MD [address] [facility] [place], [address], [facility] 08/12/2023 17:24:20 OBGyn Episode No OBEpisode recorded.
--- OUTSIDE RECORDS SUMMARY | 2025-07-22 09:41 | XMS_ITS | Encounter Summary ---
Author Organization [employer] ([place], [place], [place], [place], [place]) Address [address] [place] [address] Care Team Providers Care Hair Mixer Name Role Phone Unavailable Primary Care Provider Unavailabl e Encounter Details Date Type Department Care Team (Late st Contact Info) Description 08/11/2021 Transcribed Document [facility] Family Medicine [facility] [place] [address] ProviderMaxine MD [address] [place] [address] Social History Tobacco Use Types Packs/Day Years Used Date Smoking Tobacco: Never Assessed Comments Unknown Sex and Gender Information Value Date Recorded Sex Assigned at Unknown 03/06/2022 8:57 PM CDT Legal Sex Female 8:57 PM CDT Gender Identity Not on file Sexual Orientation Not on file documented as of this encounter Miscellaneous Notes * [employer]ner Conversion Note - Maxine ProviderMD - 08/11/2021 2:00 AM PREDICTIVE MAINTENANCE TECHNICIAN Spiritual Care Assessment Entered On: 08/11/2021 7:04 EST Performed On: 08/11/2021 6:40 EST by Hiram Lee Chaplain-Non Cert General Information Initial Visit : Yes Referred by : Other: MPTL Surgery. Ministry Provided to : Patient Spiritual/Emotional Acuity : Medium Spiritual Framework : Integrated, provides strength/resource Congregation Preference : Taoist Spiritual Leader Requested : No Spiritism Sacrament of the Sick/Anointing Needed : No Wood Fence Erector Follow-up Needed : No Hiram Lee Chaplain-Non Cert - 08/11/2021 7:00 EST Spiritual Assessment Patient's Community/Relationship : Strength in patient's life Patient's Sense of Meaning : Strength in patient's life Patient's Concept of God/the Sacred : Strength in patient's life Patient's Sense of Hope : Strength in patient's life Spiritual Assessment Comment/Summary Points : MPTL Surgery. PT's daughter was at bedside. Wood Fence Erector provided pastoral presence, support, and prayer. Family; boyfriend, daughter & others. Spirital Assessment Comment/Summary Report : SPIRITUAL ASSESSMENT COMMENT/SUMMARY No qualifying data available. Hiram Lee Chaplain-Non Cert - 08/11/2021 7:00 EST Interventions Advance Directive Information Provided : No Emotional Support : Anxiety reduction initiated, Established trust, Hope strengths identified, Relationship strengths identified Spiritual and Congregation : Prayer shared, Spiritual/Congregation support provided Hiram Lee Chaplain-[place] Cert - 08/11/2021 7:00 EST documented in this encounter Plan of Treatment Not on file documented as of this encounter Visit Diagnoses Not on filedocumented in this encounter
--- OUTSIDE RECORDS SUMMARY | 2025-07-22 09:41 | XMS_ITS | Encounter Summary ---
Author Organization [employer] ([place], [place], [place], [place], [place]) Address [address] [place] [address] Care Team Providers Care Recreation Worker Name Role Phone Unavailable Primary Care Provider Unavailabl e Encounter Details Date Type Department Care Team (Late st Contact Info) Description 08/14/2021 Transcribed Document [facility] Family Medicine [place] [address] ProviderMaxine MD [address] [place] [address] Social History Tobacco Use Types [...] - Historical ProviderMD - 08/14/2021 8:45 AM PARTS ADMINISTRATOR Nursing Discharge Summary Entered On: 08/14/2021 8:45 EST Performed On: 08/14/2021 8:45 EST by ANAT TIAN PA Discharge Documentation Patient Disposition, General : Discharge Discharge To : Home with ambulatory/outpatient follow-up ANAT TIAN PA - 08/14/2021 8:45 EST Electronically signed by Yolanda [facility] Conversion Manager [employer] at 12/28/2022 7:49 PM CDT documented in this encounter Plan of Treatment Not on file documented as of this encounter Visit Diagnoses Not on filedocumented in this encounter
--- OUTSIDE RECORDS SUMMARY | 2025-07-22 09:41 | XMS_ITS | Encounter Summary ---
Author Organization [employer] ([place], [place], [place], [place], [place]) Address [address] [place] [address] Care Team Providers Care Catering Service Manager Name Role Phone Unavailable Primary Care Provider Unavailabl e Encounter Details Date Type Department Care Team (Late st Contact Info) Description 08/12/2021 Transcribed Document [facility] [place] [facility] [place] [address] ProviderMaxine MD [address] [place] [address] Social History Tobacco Use Types [...] - Historical ProviderMD - 08/12/2021 1:05 PM CARDIOVASCULAR SURGICAL TECH Treatment Intervention, OT Entered On: 08/14/2021 15:16 [...] : 08/11/2021 06:40 Co-treated by, OT : pizza hut assistant (LAUNDRY MACHINE OPERATOR) Personal Devices : Personal Devices No Devices [...] BRUCE TAMEZ OTR/Mar - 08/14/2021 15:12 EST Mcfp Goals, OT Dressing, Lower Body LTG Grid Goal #1 Activity : Dressing, Lower Body Assist : Supervision or set up Equipment : Long Handled Personal Injury Specialist, Sock aid, Long handled shoehorn Date to [...] Treatment : cont per poc. BRUCE TAMEZ OTR/Mar - 08/14/2021 15:12 EST Anticipated Discharge Needs, OT/PT Anticipated Discharge to : Home, with home health BRUCE TAMEZ OTR/Mar - 08/14/2021 15:[address] [facility] OT Charges OT Ther Activities Ea 15 Min : 1 BRUCE TAMEZ OTR/L - 08/14/2021 15:12 EST Electronically signed by Yolanda [facility] Conversion Utility Manager Cerner at 12/28/2022 7:51 PM CDT documented in this encounter Plan of Treatment Not on file documented as of this encounter Visit Diagnoses Not on filedocumented in this encounter
--- OUTSIDE RECORDS SUMMARY | 2025-07-22 09:41 | XMS_ITS | Encounter Summary ---
Author Organization [employer] ([place], [place], [place], [place], [place]) Address [address] [place] [address] Care Team Providers Care Parts Salesman Name Role Phone Unavailable Primary Care Provider Unavailabl e Encounter Details Date Type Department Care Team (Late st Contact Info) Description 08/14/2021 Transcribed Document [facility] [place] [facility] [place] [address] ProviderMaxine MD [address] [place] [address] Social History Tobacco Use Types Packs/Day [...] - Historical ProviderMD - 08/14/2021 8:45 AM HOME HEALTH CARE RESPIRATORY THERAPIST Discharge Instructions Entered On: 08/14/2021 8:45 EST [...] ANAT TIAN PA - 08/14/2021 8:45 EST documented in this encounter Plan of Treatment Not on file documented as of this encounter Visit Diagnoses Not on filedocumented in this encounter
--- OUTSIDE RECORDS SUMMARY | 2025-07-22 09:41 | XMS_ITS | Encounter Summary ---
Author Organization [employer] ([place], [place], [place], [place], [place]) Address [address] [place] [address] Care Team Providers Care Psychological Examiner Name Role Phone Unavailable Primary Care Provider Unavailabl e Encounter Details Date Type Department Care Team (Late st Contact Info) Description 08/11/2021 Transcribed Document [facility] [place] [facility] [place] [address] ProviderMaxine MD [facility] [place] [address] Social History Tobacco Use Types [...] - Historical ProviderMD - 08/11/2021 12:13 PM SIDE SEAM ENVELOPE MACHINE OPERATOR Evaluation, Physical Therapy Entered On: 08/11/2021 15:12 [...] : 08/11/2021 06:40 Assisted by, PT : senior nuclear medicine technologist/aide Personal Devices : Personal Devices No Devices [...] Cam INTERN-PHYSICAL THERAPY - 08/11/2021 14:55 EST Securities And Real Estate Director Goals Mobility/Bed Mobility LTG PT Grid Goal [...] Cam INTERN-PHYSICAL THERAPY - 08/11/2021 14:[address] [facility] PT Charges PT Eval Moderate Complexity : 1 Supriya Cam INTERN-PHYSICAL THERAPY - 08/11/2021 14:55 EST Electronically signed by Loan Guerrero Conversion Technical Project Coordinator Cerner at 12/28/2022 7:44 PM CDT documented in this encounter Plan of Treatment Not on file documented as of this encounter Visit Diagnoses Not on filedocumented in this encounter
--- OUTSIDE RECORDS SUMMARY | 2025-07-22 09:41 | XMS_ITS | Encounter Summary ---
Author Organization [employer] ([place], [place], [place], [place], [place]) Address [address] [place] [address] Care Team Providers Care Press Hand Name Role Phone Unavailable Primary Care Provider Unavailabl e Encounter Details Date Type Department Care Team (Late st Contact Info) Description 08/12/2021 Transcribed Document [facility] Neurology - [address] [place] [address] Carlos Damon MD [address] [facility] [address] [place] [address] Social History Tobacco Use Types [...]
--- OUTSIDE RECORDS SUMMARY | 2025-07-22 09:41 | XMS_ITS | Encounter Summary ---
Author Organization [employer] ([place], [place], [place], [place], [place]) Address [address] [place] [address] Care Team Providers Care Sales Development Consultant Name Role Phone Unavailable Primary Care Provider Unavailabl e Encounter Details Date Type Department Care Team (Late st Contact Info) Description 08/12/2021 Transcribed Document [facility] [place] [facility] [place] [address] ProviderMaxine MD [facility] [place] [address] Social History Tobacco Use Types [...] - Historical ProviderMD - 08/12/2021 6:00 PM DEALER DEVELOPMENT MANAGER Pain Assessment Entered On: 08/12/2021 17:55 EST [...]
--- OUTSIDE RECORDS SUMMARY | 2025-07-22 09:41 | XMS_ITS | Encounter Summary ---
Author Organization [employer] ([place], [place], [place], [place], [place]) Address [address] [place] [address] Care Team Providers Care Executive Chef Name Role Phone Unavailable Primary Care Provider Unavailabl e Encounter Details Date Type Department Care Team (Late st Contact Info) Description 08/13/2021 Transcribed Document [facility] [place] Medicine [facility] [place] [address] ProviderMaxine MD [address] [place] [address] Social History Tobacco Use Types [...] - Historical ProviderMD - 08/13/2021 10:00 AM PLANT QUALITY MANAGER Pain Assessment Entered On: 08/13/2021 16:25 EST [...]
--- OUTSIDE RECORDS SUMMARY | 2025-07-22 09:41 | XMS_ITS | Encounter Summary ---
Author Organization [employer] ([place], [place], [place], [place], [place]) Address [address] [place] [address] Care Team Providers Care Molder Hand Name Role Phone Unavailable Primary Care Provider Unavailabl e Encounter Details Date Type Department Care Team (Late st Contact Info) Description 08/11/2021 Transcribed Document [facility] [place] [address] ProviderMaxine MD [address] [place] [address] Social History Tobacco Use Types [...] - Historical ProviderMD - 08/11/2021 12:54 PM MUSIC WORKER Meds to Bed Enrollment Entered On: 08/14/2021 10:31 EST Performed On: 08/11/2021 12:54 EST by Aydin Burnette Sleep Scientist Cert Lead Meds to Bed Enrollment Patient Enrollment Decision: : Yes/enroll in meds to bed program Aydin Burnette Sleep Scientist Cert Lead - 08/14/2021 10:31 EST Electronically signed by Loan Guerrero Conversion Mental Health Program Manager [place] at 12/28/2022 7:55 PM CDT documented in this encounter Plan of Treatment Not on file documented as of this encounter Visit Diagnoses Not on filedocumented in this encounter
--- OUTSIDE RECORDS SUMMARY | 2025-07-22 09:41 | XMS_ITS | Clinical Summary ---
[facility] Organization [facility] Address [address] [place] [address] Care Team Providers Care Packer Insulation Name Role Phone Giulia Dunlap APRN Primary [...] ANNUAL PHYSICAL 01/03/2022 HEPATITIS C SCREENING 01/03/2022 INFLUENZA VACCINE 04/09/2025 06/11/2022, , 06/09/2018, Additional history exists LUNG CANCER SCREENING Discontinued 06/02/2023 Insurance [facility] PPO Advance Directives * CPR (Attempt to Resuscitate) (Latest Code Status on File) Date Activated Date Inactivated Comments 02/05/2023 3:29 PM 02/07/2023 4:43 PM Question Answer Comments Code Status (Patient has no pulse and is not breathing): CPR (Attempt to Resuscitate) Medical Interventions (Patie nt has pulse or is breathing): Full Care Teams Packer Insulation Relationship Specialty Start Date End Date Giulia Dunlap APRN [address] [facility] [address] [place] [address] PCP - General Family Medicine 01/29/23
--- OUTSIDE RECORDS SUMMARY | 2025-07-22 09:41 | XMS_ITS | Encounter Summary ---
Author Organization [employer] ([place], [place], [place], [place], [place]) Address [address] [place] [address] Care Team Providers Care Cotton Program Technician Name Role Phone Unavailable Primary Care Provider Unavailabl e Encounter Details Date Type Department Care Team (Late st Contact Info) Description 08/11/2021 Transcribed Document [facility] [place] [facility] [place] [address] ProviderMaxine MD [address] [place] [address] Social History Tobacco Use [...] - Historical ProviderMD - 08/11/2021 9:09 AM WET PAN MIXER [facility] Main OR PACU Summary Primary Physician: CARLOS DAMON MD-SNU Finalized Date/Time: 08/19/21 12:26:49 Pt. Name: SERA CALI /Sex: 1970 Female Med Rec #: [id number] Physician: CARLOS DAMON MD-SNU Financial #: [id number] Pt. Type: I Room/Bed: 649/1 Admit/Disch: 08/11/21 06:40:00 - 08/14/21 17:42:00 Institution: [facility] Main OR PACU I Case Times Entry 1 In PACU I 08/11/21 12:09:00 Ready for PACU 08/11/21 12:45:00 Discharge Discharge from PACU 08/11/21 13:00:00 I Last Modified By: Sowmya King RN 08/11/21 13:21:16 [facility] Main OR PACU I Case Times Audit 08/11/21 13:21:16 Buildings Painter: TAMSORNM Modifier: TAMSORNM <+> 1 Ready for PACU Discharge <+> 1 Discharge from PACU I [facility] Main OR PACU Acuity Entry 1 Start Time 08/11/21 12:45:00 Stop Time 08/11/21 13:00:00 Acuity Level [facility] PACU Acuity I Last Modified By: Abby Escobedo, Nurse Floor Surfacer 08/19/21 12:26:42 Finalized By: Abby Escobedo, Nurse Counter Hand Signatures Signed By: Sowmya King RN 08/11/21 13:22 Abby Escobedo, Nurse Floor Surfacer 08/19/21 12:26 Unfinalized History Date/Time Username Reason for Unfinalizing Freetext Reason for Unfinalizing 08/19/21 12:26 [id number] Correct Billing Electronically signed by Yolanda [facility] Conversion Marine Engine Machinist Cerner at 12/28/2022 8:02 PM CDT documented in this encounter Plan of Treatment Not on file documented as of this encounter Visit Diagnoses Not on filedocumented in this encounter
--- OUTSIDE RECORDS SUMMARY | 2025-07-22 09:41 | XMS_ITS | Encounter Summary ---
Author Organization [employer] ([place], [place], [place], [place], [place]) Address [address] [place] [address] Care Team Providers Care Finnish Rubber Name Role Phone Unavailable Primary Care Provider Unavailabl e Encounter Details Date Type Department Care Team (Late st Contact Info) Description 08/11/2021 Transcribed Document [facility] [place] [facility] [place] [address] ProviderMaxine MD [address] [place] [address] Social History Tobacco Use Types [...] - Historical ProviderMD - 08/11/2021 3:44 PM SUB ARC OPERATOR Treatment Intervention, PT Entered On: 08/13/2021 9:57 EST Performed On: 08/13/2021 9:19 EST by Olesya Ahumada, FLAVOR MAKER NON-EXEMPT General Information, PT Visit Type, PT [...] Log roll precautions, Spinal Precautions Olesya Ahumada FLAVOR MAKER NON-EXEMPT - 08/13/2021 9:44 EST General Status [...] Treatment Time : 29 Minute(s) Olesya Ahumada FLAVOR MAKER NON-EXEMPT - 08/13/2021 9:44 EST Functional Mobility Mobility Grid Supine to Sit : Supervision/set-up Sit to Stand : Rehab Minimal assistance Stand to Sit : Supervision/set-up Sit to Supine : Rehab Minimal assistance Olesya Ahumada FLAVOR MAKER NON-EXEMPT - 08/13/2021 9:44 EST Supine to [...] A from EOB to RW. Olesya Ahumada FLAVOR MAKER NON-EXEMPT - 08/13/2021 9:44 EST Gait Training/Assessment, [...] spinal precautions during transitional turns. Olesya Ahumada FLAVOR MAKER NON-EXEMPT - 08/13/2021 9:44 EST Cognitive Treatment, PT Orientation : Oriented x 4 Olesya Ahumada FLAVOR MAKER NON-EXEMPT - 08/13/2021 9:44 EST Edu Topics Physical Therapy Education Grid Bed Mobility Training : Needs further teaching, Needs reinforcement Precaution/Contraindication : Verbalizes understanding Role of Physical Therapy : Verbalizes understanding Use of Assistive Device : Needs further teaching, Needs reinforcement, Verbalizes understanding Olesya Ahumada FLAVOR MAKER NON-EXEMPT - 08/13/2021 9:44 EST Teaching/Learning Assessment Barriers To Learning : None evident Olesya Ahumada FLAVOR MAKER NON-EXEMPT - 08/13/2021 9:44 EST Indication Assesessment, PT Physical Therapy Indicated : Yes Olesya Ahumada FLAVOR MAKER NON-EXEMPT - 08/13/2021 9:44 EST Plan of Care, PT PT Tx Plan/Goals Established w Patient : Yes Olesya Ahumada FLAVOR MAKER NON-EXEMPT - 08/13/2021 9:44 EST Autocad Designer Goals Mobility/Bed Mobility LTG PT Grid Goal #1 Activity : Supine to sit Cues : No cues Assist : Independent, modified Equipment : Bed, hospital Date to Meet : 08/25/2021 EST Goal Status : Progressing, continue Comment : with log roll technique Olesya Ahumada FLAVOR MAKER NON-EXEMPT - 08/13/2021 9:44 EST Ambulation LTG Grid Goal #1 Device : Walker, front wheel Distance : 250' Cues : No cues Assist : Independent, modified Date to Meet : 08/25/2021 EST Goal Status : Progressing, continue Olesya Ahumada FLAVOR MAKER NON-EXEMPT - 08/13/2021 9:44 EST Stairs LTG Grid Goal #1 Device : Walker, front wheel Number of Steps : 1 Handrail(s) : No handrails Assist : Independent, modified Date to Meet : 08/25/2021 EST Goal Status : Intial Goal Olesya Ahumada FLAVOR MAKER NON-EXEMPT - 08/13/2021 9:44 EST Treatment Note [...] for Treatment : Continue with POC. Olesya Ahumada, FLAVOR MAKER NON-EXEMPT - 08/13/2021 9:44 EST Pain Assessment Pain Comment : Patient reports 10/10 pain LLE/ back, however given pain meds and nursing aware. Olesya Ahumada FLAVOR MAKER NON-EXEMPT - 08/13/2021 9:44 EST Image 1 - Images currently included in the form version of this document have not been included in the text rendition version of the form. Anticipated Discharge Needs, OT/PT Anticipated Discharge to : Home, with home health Olesya Ahumada FLAVOR MAKER NON-EXEMPT - 08/13/2021 9:44 EST [place] PT Charges AIR TURNING MACHINE FEEDER PT Ther Activities Ea 15 Min-AIR TURNING MACHINE FEEDER : 2 Olesya Ahumada FLAVOR MAKER NON-EXEMPT - 08/13/2021 9:44 EST Electronically signed by [facility] Conversion Superintendent Storage Area Cerner at 12/30/2022 8:03 PM CDT documented in this encounter Plan of Treatment Not on file documented as of this encounter Visit Diagnoses Not on filedocumented in this encounter
--- OUTSIDE RECORDS SUMMARY | 2025-07-22 09:41 | XMS_ITS | Encounter Summary ---
Author Organization [employer] ([place], [place], [place], [place], [place]) Address [address] [place] [address] Care Team Providers Care Aircraft Engine Specialist Name Role Phone Unavailable Primary Care Provider Unavailabl e Encounter Details Date Type Department Care Team (Late st Contact Info) Description 08/09/2021 Transcribed Document [facility] [place] [facility] [place] [address] ProviderMaxine MD [address] [place] [address] Social History Tobacco Use Types [...] - Historical ProviderMD - 08/09/2021 1:43 PM BROADCAST TECHNICIAN UM Authorization Entered On: 08/09/2021 13:44 EST Performed On: 08/09/2021 13:43 EST by JOSEFINA ALMONTE, Electric Brain Wave Equipment Mechanic Primary Insurance Authorization Authorization and Policy Numbers : Insurance 1 Health Plan: [facility] Policy Number: [id number] Authorization Number: Insurance Primary Name : Esperanza [id number] Authorization Status-Primary : Admit approved Authorization Number-Primary : [id number] Number of Days Authorized-Primary : 1 Day(s) Authorized Service Begin Date-Primary : 08/11/2021 EST Authorized Service End Date-Primary : 08/12/2021 EST Authorization Comments-Primary : pt is aramis for INPT lumbar fusion posterior 3 level on Saturday08-11-21 per STAR [place] approved 2 days INPT auth# [id number] Historical Authorization Comments-Primary : No Authorization Comments Found JOSEFINA ALMONTE, Electric Brain Wave Equipment Mechanic - 08/09/2021 13:43 EST Electronically signed by Loan Guerrero Conversion Safety Pin Assembling Machine Operator Cerner at 12/28/2022 7:43 PM CDT documented in this encounter Plan of Treatment Not on file documented as of this encounter Visit Diagnoses Not on filedocumented in this encounter
--- OUTSIDE RECORDS SUMMARY | 2025-07-22 09:41 | XMS_ITS | Encounter Summary ---
Author Organization [employer] ([place], [place], [place], [place], [place]) Address [address] [place] [address] Care Team Providers Care Accreditation Specialist Name Role Phone Unavailable Primary Care Provider Unavailabl e Encounter Details Date Type Department Care Team (Late st Contact Info) Description 08/14/2021 Transcribed Document [facility] [place] [facility] [place] [address] ProviderMaxine MD [address] [place] [...] - Historical ProviderMD - 08/14/2021 5:16 PM LICENSED CERTIFIED ORTHOTIST Spiritual Care Assessment Entered On: 08/14/2021 18:20 EST Performed On: 08/14/2021 17:16 EST by Lázaro Oquendo Chaplain General Information Referred by : Electric Drill Operator initiated Ministry Provided to : Patient Mu-Ism Preference : Uatsdin Lázaro Oquendo Chaplain - 08/14/2021 18:19 EST Spiritual Assessment Spiritual Assessment Comment/Summary Points : Breif supportive visit as patient appeared tired. Spirital Assessment Comment/Summary Report : SPIRITUAL ASSESSMENT COMMENT/SUMMARY Spiritual Assessment Comment/Summary 08/11/21 06:40:00 MPTL Surgery. PT's daughter was at bedside. Electric Drill Operator provided pastoral presence, support, and prayer. Family; boyfriend, daughter & others. Signed By: Hiram Lee Chaplain-Non Cert Lázaro Oquendo Chaplain - 08/14/2021 18:19 EST Interventions Emotional Support : Empathic/Engaged listening Spiritual and Mu-Ism : Spiritual/Mu-Ism support provided Lázaro Oquendo Chaplain - 08/14/2021 18:19 EST Electronically signed by [facility], [facility] Conversion Information Systems Consultant Cerner at 12/28/2022 7:57 PM CDT documented in this encounter Plan of Treatment Not on file documented as of this encounter Visit Diagnoses Not on filedocumented in this encounter
--- OUTSIDE RECORDS SUMMARY | 2025-07-22 09:41 | XMS_ITS | Encounter Summary ---
Author Organization [employer] ([place], [place], [place], [place], [place]) Address [address] [place] [address] Care Team Providers Care Gas Attendant Name Role Phone Unavailable Primary Care Provider Unavailabl e Encounter Details Date Type Department Care Team (Late st Contact Info) Description 08/13/2021 Transcribed Document [facility] [place] Medicine [facility] [place] [address] ProviderMaxine MD [address] [place] [address] Social History Tobacco Use Types [...] - Historical ProviderMD - 08/13/2021 5:00 PM POWERHOUSE LABORER Chart Check - Review Order Profile Entered On: 08/13/2021 16:59 EST Performed On: 08/13/2021 17:00 EST by ELPIDIO GARCIA RN Chart Check Powerplans Initiated/Discontinued as Appropriate : Not applicable All Active Orders Reviewed : Yes ELPIDIO GARCIA RN - 08/13/2021 16:59 EST Electronically signed by Yolanda [facility] Conversion Drop Clipper [place] at 12/28/2022 8:05 PM CDT documented in this encounter Plan of Treatment Not on file documented as of this encounter Visit Diagnoses Not on filedocumented in this encounter
--- OUTSIDE RECORDS SUMMARY | 2025-07-22 09:41 | XMS_ITS | Encounter Summary ---
Author Organization [employer] ([place], [place], [place], [place], [place]) Address [address] [place] [address] Care Team Providers Care Cage/Vault Supervisor Name Role Phone Unavailable Primary Care Provider Unavailabl e Encounter Details Date Type Department Care Team (Late st Contact Info) Description 08/14/2021 Transcribed Document [facility] [place] Medicine [facility] [place] [address] ProviderMaxine MD [address] [place] [address] Social History Tobacco Use Types [...] - Historical ProviderMD - 08/14/2021 8:55 AM CAGE/VAULT SUPERVISOR UM Authorization Entered On: 08/14/2021 8:55 EST Performed On: 08/14/2021 8:55 EST by Swathi Yancey Rn-Utilization Review Primary Insurance Authorization Authorization and Policy Numbers : Insurance 1 Health Plan: [facility] Policy Number: [id number] Authorization Number: [id number] Insurance Primary Name : Esperanza [id number] Authorization Status-Primary : Admit approved Authorization Number-Primary : [id number] Number of Days Authorized-Primary : 1 Day(s) Authorized Service Begin Date-Primary : 08/11/2021 EST Authorized Service End Date-Primary : 08/12/2021 EST Historical Authorization Comments-Primary : Comment 1: CLINICAL FGAXED FOR C/S DOS 08/13 VIA [employer] (Bc, Swathi L, Rn-Utilization Review 08/14/2021 08:52) Comment 2: pt is aramis for INPT lumbar fusion posterior 3 level on Saturday08-11-21 per STAR [place] approved 2 days INPT auth# [id number] (JOSEFINA ALMONTE, Court Recorder 08/09/2021 13:43) Swathi Yancey, Rn-Utilization Review - 08/14/2021 8:55 EST Electronically signed by [facility], [facility] Conversion Hospital Librarian Cerner at 12/28/2022 7:51 PM CDT documented in this encounter Plan of Treatment Not on file documented as of this encounter Visit Diagnoses Not on filedocumented in this encounter
--- OUTSIDE RECORDS SUMMARY | 2025-07-22 09:42 | XMS_ITS | Encounter Summary ---
Author Organization [employer] ([place], [place], [place], [place], [place]) Address [address] [place] [address] Care Team Providers Care Main Galley Scullion Name Role Phone Unavailable Primary Care Provider Unavailabl e Encounter Details Date Type Department Care Team (Late st Contact Info) Description 08/15/2021 Transcribed Document [facility] [place] [facility] [place] [address] ProviderMaxine MD [address] [place] [address] Social History Tobacco Use Types [...] - Historical ProviderMD - 08/15/2021 12:33 PM PELLET PREPARATION OPERATOR UM Authorization Entered On: 08/15/2021 12:33 EST Performed On: 08/15/2021 12:33 EST by Julisa Owusu, Caramel Cutter Machine Primary Insurance Authorization Authorization and Policy Numbers : Insurance 1 Health Plan: [facility] Policy Number: [id number] Authorization Number: [id number] Insurance Primary Name : Esperanza [id number] Authorization Status-Primary : Admit approved Auth/Referral Contact Name-Primary : [place] Authorization Number-Primary : [id number] Number of Days Authorized-Primary : 1 Day(s) [...] posterior 3 level on Saturday08-11-21 per STAR [place] approved 2 days INPT auth# [id number] (JOSEFINA ALMONTE, Field Interviewer 08/09/2021 13:43) Julisa Owusu, Caramel Cutter Machine - 08/15/2021 12:33 EST Electronically signed by [facility] Conversion Laborer Vineyard Cerner at 12/28/2022 7:40 PM CDT documented in this encounter Plan of Treatment Not on file documented as of this encounter Visit Diagnoses Not on filedocumented in this encounter
--- OUTSIDE RECORDS SUMMARY | 2025-07-22 09:42 | XMS_ITS | Encounter Summary ---
Author Organization [employer] ([place], [place], [place], [place], [place]) Address [address] [place] [address] Care Team Providers Care Strike Planning Applications Name Role Phone Unavailable Primary Care Provider Unavailabl e Encounter Details Date Type Department Care Team (Late st Contact Info) Description 08/17/[address] [facility] [place] [facility] [place] [address] ProviderMaxine MD [address] [place] [address] Social History Tobacco Use Types Packs/Day Years Used Date Smoking Tobacco: Never Assessed Comments Unknown Sex and Gender Information Value Date Recorded Sex Assigned at Unknown 03/06/2022 8:57 PM CDT Legal Sex Female 8:57 PM CDT Gender Identity Not on file Sexual Orientation Not on file documented as of this encounter Miscellaneous Notes * Cerner Conversion Note - Maxine ProviderMD - 08/17/2021 2:02 PM FLOAT OPERATOR UM Authorization Entered On: 08/17/2021 14:02 EST Performed On: 08/17/2021 14:02 EST by Julisa Owusu, Engineering Systems Analyst Primary Insurance Authorization Authorization and Policy Numbers : Insurance 1 Health Plan: [facility] Policy Number: [id number] Authorization Number: [id number] Insurance Primary Name : Esperanza [id number] Authorization Status-Primary : Approved Auth/Referral Contact Name-Primary : DC - MONE Authorization Number-Primary : [id number] Number of Days Authorized-Primary : 2 Day(s) Authorized Service Begin Date-Primary : 08/11/2021 EST Authorized Service End Date-Primary : 08/13/2021 EST Authorization Comments-Primary : Authorized per phone - Antonio - All days approved. Historical Authorization Comments-Primary : Comment 1: Discharge date and summary faxed. (Julisa Owusu, Engineering Systems Analyst 08/15/2021 12:33) Comment 2: CLINICAL FGAXED FOR C/S DOS 08/13 VIA [employer] (Swathi Yancey, Rn-Utilization Review 08/14/2021 08:52) Comment 3: pt is aramis for INPT lumbar fusion posterior 3 level on Saturday08-11-21 per [facility] [place] approved 2 days INPT auth# [id number] (JOSEFINA ALMONTE, Adult Crossing Guard 08/09/2021 13:43) Julisa Owusu, Engineering Systems Analyst - 08/17/2021 14:02 EST documented in this encounter Plan of Treatment Not on file documented as of this encounter Visit Diagnoses Not on filedocumented in this encounter
--- OUTSIDE RECORDS SUMMARY | 2025-07-22 09:42 | XMS_ITS | Encounter Summary ---
Author Organization [employer] ([place], [place], [place], [place], [place]) Address [address] [place] [address] Care Team Providers Care Kettle Chipper Name Role Phone Unavailable Primary Care Provider Unavailabl e Encounter Details Date Type Department Care Team (Late st Contact Info) Description 08/17/2021 Transcribed Document [facility] Family Medicine [facility] [place] [address] ProviderMaxine MD [address] [place] [address] Social History Tobacco Use Types [...] - Historical ProviderMD - 08/17/2021 1:25 PM TECHNICAL SUPPORT ANALYST UM Authorization Entered On: 08/17/2021 13:25 EST Performed On: 08/17/2021 13:25 EST by Julisa Owusu, Manager Club Primary Insurance Authorization Authorization and Policy Numbers : Insurance 1 Health Plan: [facility] Policy Number: [id number] Authorization Number: [id number] Insurance Primary Name : Esperanza [id number] Authorization Status-Primary : Admit approved Auth/Referral Contact Name-Primary : DC - MONE Authorization Number-Primary : [id number] Number of Days Authorized-Primary : 1 Day(s) Authorized Service Begin Date-Primary : 08/11/2021 EST Authorized Service End Date-Primary : 08/12/2021 EST Historical Authorization Comments-Primary : Comment 1: Discharge date and summary faxed. (Julisa Owusu, Manager Club 08/15/2021 12:33) Comment 2: CLINICAL FGAXED FOR C/S DOS 08/13 VIA [employer] (Swathi Yancey, Rn-Utilization Review 08/14/2021 08:52) Comment 3: pt is aramis for INPT lumbar fusion posterior 3 level on Saturday08-11-21 per [facility] [place] approved 2 days INPT auth# [id number] (JOSEFINA ALMONTE, Senior Information Security Consultant 08/09/2021 13:43) Julisa Owusu, Manager Club - 08/17/2021 13:25 EST Electronically signed by Yolanda, [facility] Conversion Horse Show Manager Cerner at 12/28/2022 7:48 PM CDT documented in this encounter Plan of Treatment Not on file documented as of this encounter Visit Diagnoses Not on filedocumented in this encounter
--- OUTSIDE RECORDS SUMMARY | 2025-07-22 09:42 | XMS_ITS | Encounter Summary ---
Author Organization [employer] ([place], [place], [place], [place], [place]) Address [address] [place] [address] Care Team Providers Care Generator Operator Name Role Phone Unavailable Primary Care Provider Unavailabl e Encounter Details Date Type Department Care Team (Late st Contact Info) Description 08/21/2021 Transcribed Document [facility] Neurology - [address] [facility] [address] [place] [address] Carlos Damon MD [address] [facility] [address] [place] [address] Social History Tobacco Use Types [...] 08/14/2021 17:42 Primary Care Provider NERI RODRIGUEZ (MD [facility] Discharge Diagnosis Other spondylosis with myelopathy, lumbar [...] cdi skin warm and dry nonlabored breathing dee abd soft nontender Discharge Disposition Home Discharge [...] mg, Oral, Daily Vitamin B12 , IntraMuscular, R3Cgwin Code Status No Code Status Order on [...]
--- OUTSIDE RECORDS SUMMARY | 2025-07-22 09:42 | XMS_ITS | Encounter Summary ---
Author Organization [employer] ([place], [place], [place], [place], [place]) Address [address] [place] [address] Care Team Providers Care Promotions Executive Name Role Phone Unavailable Primary Care Provider Unavailabl e Encounter Details Date Type Department Care Team (Late st Contact Info) Description 08/14/2021 Transcribed Document [facility] [place] [facility] [place] [address] ProviderMaxine MD [address] [place] [address] Social History Tobacco Use Types Packs/Day Years Used Date Smoking Tobacco: Never Assessed Comments Unknown Sex and Gender Information Value Date Recorded Sex Assigned at Unknown 03/06/2022 8:57 PM CDT Legal Sex Female 8:57 PM CDT Gender Identity Not on file Sexual Orientation Not on file documented as of this encounter Miscellaneous Notes * Cerner Conversion Note - Maxine Bautista MD - 08/14/2021 2:45 PM ENTERPRISE SECURITY ARCHITECT Patient Education Materials Follows: Spinal Fusion, Adult, [...] these instructions at home: Medicines ??? Take ykfj-mvi-kzmhmzs and prescription medicines only as told by [...] keep your urine pale yellow. ? Take fnqr-ddb-knddohu or prescription medicines. ? Eat foods that [...] and water are not available, use hand creative services specialist. ? Change your dressing as told by [...] incision area. ??? Apply ice and take wfjt-wre-inqtlmx and prescription medicines as told by your [...] provider. Document Revised: 07/11/2020 Document Reviewed: 07/11/2020 [employer] Patient Education ? 2020 [employer] documented in this encounter Plan of Treatment Not on file documented as of this encounter Visit Diagnoses Not on filedocumented in this encounter
--- OUTSIDE RECORDS SUMMARY | 2025-07-22 09:42 | XMS_ITS | Encounter Summary ---
Author Organization [employer] ([place], [place], [place], [place], [place]) Address [address] [place] [address] Care Team Providers Care Lime Boiler Name Role Phone Unavailable Primary Care Provider Unavailabl e Encounter Details Date Type Department Care Team (Late st Contact Info) Description 08/14/2021 Transcribed Document [facility] [place] [address] [place] [address] ProviderMaxine MD [address] [place] [address] Social History Tobacco Use Types [...] - Maxine ProviderMD - 08/14/2021 2:57 PM SUPPLY ASSISTANT [facility] [place] [address] SERA CALI :1970 Visit Time:08/11/2021 Your Visit Summary Your Care Team Admitting Physician - CARLOS DAMON MD-TE Attending Physician - CARLOS DAMON MD-U Primary Care Physician - NERI RODRIGUEZ (REF)[facility] Referring Physician - RUTH, NOT LISTED Your [...] Team Home Health Services: [facility]--[phone] Medical Equipment for Home Use: [facility]--[phone] Diet after Discharge: Resume usual diet as [...] AM EST Comments Please go to the [facility] on [facility] at 9:45 for x-rays before going to your appointment Where: [address] [place] [address] [address]- Business (1) Follow Up with CARLOS DAMON When 08/28/2021 02:00 PM EST Comments Appointment has been made for staple/suture removal Where: [address] [place] [address]- Business (1) Medications What How Much When Instructions [...] these instructions at home: Medicines ??? Take wkrp-kdz-zliaqli and prescription medicines only as told by [...] keep your urine pale yellow. ? Take wcjb-onl-wpmuvll or prescription medicines. ? Eat foods that [...] and water are not available, use hand cancer researcher. ? Change your dressing as told by [...] incision area. ??? Apply ice and take ijub-wiv-zkpiuox and prescription medicines as told by your [...] provider. Document Revised: 07/11/2020 Document Reviewed: 07/11/2020 [employer] Patient Education ?? 2020 [employer]. acetaminophen and oxycodone (a SEET a MIN [...] may report side effects to FDA at 2-632-EMT-7647. What other drugs will affect acetaminophen and [...] affect acetaminophen and oxycodone, including prescription and bfoc-abl-heurbmp medicines, vitamins, and herbal products. Not all [...] to ensure that the information provided by [employer]. ('[employer]') is accurate, up-to-date, and complete, but no guarantee is made to that effect. Drug information contained herein may be time sensitive. [employer] information has been compiled for use by healthcare practitioners and consumers in the [place] and therefore [employer] does not warrant that uses outside of the [place] are appropriate, unless specifically indicated otherwise. [employer]'s drug information does not endorse drugs, diagnose patients or recommend therapy. [employer] drug information is an informational resource designed [...] effective or appropriate for any given patient. [employer] does not assume any responsibility for any aspect of healthcare administered with the aid of information [employer] provides. The information contained herein is not intended to cover all possible uses, directions, precautions, warnings, drug interactions, allergic reactions, or adverse effects. If you have questions about the drugs you are taking, check with your doctor, nurse or pharmacist. Copyright 8426-7085 [employer]. Version: 20.03. Revision Date: 10/14/2020. cyclobenzaprine (jaci [...] may report side effects to FDA at 5-534-JUX-0511. What other drugs will affect cyclobenzaprine? Using [...] drugs may affect cyclobenzaprine, including prescription and mlzt-bjp-bumwcjk medicines, vitamins, and herbal products. Not all [...] to ensure that the information provided by [employer]. ('[employer]') is accurate, up-to-date, and complete, but no guarantee is made to that effect. Drug information contained herein may be time sensitive. [employer] information has been compiled for use by healthcare practitioners and consumers in the [place] and therefore [employer] does not warrant that uses outside of the [place] are appropriate, unless specifically indicated otherwise. [employer] drug information does not endorse drugs, diagnose patients or recommend therapy. [employer] drug information is an informational resource designed [...] effective or appropriate for any given patient. [employer] does not assume any responsibility for any aspect of healthcare administered with the aid of information [employer] provides. The information contained herein is not intended to cover all possible uses, directions, precautions, warnings, drug interactions, allergic reactions, or adverse effects. If you have questions about the drugs you are taking, check with your doctor, nurse or pharmacist. Copyright 4570-6760 [employer]. Version: 5.01. Revision Date: 06/04/2018. Emergency Awareness [...] Assistance with quitting is available by contacting 1-901-XEQX-NOW. This is a free resource providing counseling, [...] range between ( 0.0 and 7.0 ) Walsh #: 0.90 K/uL -- Normal range between ( 0.16 and 1.00 ) Eos #: 0.27 x10(3)/uL -- Normal range between ( 0.00 and 0.80 ) Walsh %: 8.1 % -- Normal range between [...] ) Urine Bilirubin Dipstick: Negative Urine Specific Peck: *1.029 -- Normal range between ( 1.005 [...] was given the opportunity to ask questions. Patient/Production Corrugator Name: Patient/Production Corrugator Signature: Relationship to Patient: Clinician/Hospital Production Corrugator Signature: Date: Electronically signed by Yolanda, [facility] Conversion Objective C Developer [place] at 12/28/2022 7:55 PM CDT documented in this encounter Plan of Treatment Not on file documented as of this encounter Visit Diagnoses Not on filedocumented in this encounter
--- OUTSIDE RECORDS SUMMARY | 2025-07-22 09:42 | XMS_ITS | Clinical Summary ---
Author Organization [employer] ([place], [place], [place], [place], [place]) Address [address] [place] [address] Care Team Providers Care Field Return Repairer Name Role Phone Unavailable Primary Care Provider [...]
[2025-07-22 10:14] LABS: Hematocrit 41.6 % (37.0-47.0); Hemoglobin 13.3 g/dL (12.2-16.2); Immature Granulocytes % 0.4 %; Mean Corpuscular HGB Conc 32.0 g/dL (31.8-35.4); Mean Corpuscular Hemoglobin 29.6 pg (27.0-31.2); Mean Corpuscular Volume 92.4 fl (81-99); Nucleated Red Blood Cells % 0 %; Platelet Count 369 K/mm3 (142-424); Red Blood Count 4.50 M/mm3 (4.20-5.40); Red Cell Distribution Width-SD 49.2 fL; White Blood Count 10.7 K/mm3 (4.8-10.8)
--- NOTE | 2025-07-22 10:56 | XR_ITS ---
FINAL REPORT CLINICAL HISTORY: left wrist pain FINDINGS: LEFT WRIST Three views were obtained. There is no fracture or dislocation. There are moderate degenerative changes of the first carpometacarpal joint. No soft tissue abnormality is identified. IMPRESSION: Moderate degenerative changes as above. Reviewed, Interpreted and Dictated by Kristin Katz MD Transcribed by Melissa Mendoza Authenticated and . [facility]
--- NOTE | 2025-07-22 10:56 | XR_ITS ---
FINAL REPORT CLINICAL HISTORY: right hand pain FINDINGS: RIGHT HAND Three views were obtained. There is no fracture or dislocation. There are moderate degenerative changes of the DIP joints. There are mild degenerative changes of the PIP joints. There is an old ulnar styloid process fracture. There are mild degenerative changes of the radiocarpal joint. No soft tissue abnormality is identified. 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 Reviewed, Interpreted and Dictated by Kristin Katz MD Transcribed by Melissa Mendoza Authenticated and [facility]
--- NOTE | 2025-07-22 10:56 | XR_ITS ---
FINAL REPORT CLINICAL HISTORY: left shoulder pain FINDINGS: LEFT SHOULDER Two views were obtained. There is no fracture or dislocation. The joint spaces appear normal. No soft tissue abnormality is identified. IMPRESSION: No acute process. Reviewed, Interpreted and Dictated by Kristin Katz MD Transcribed by Melissa Mendoza Authenticated and [facility]
--- NOTE | 2025-07-22 10:56 | XR_ITS ---
FINAL REPORT CLINICAL HISTORY: left hand pain FINDINGS: LEFT HAND Three views were obtained. There is no fracture or dislocation. There are degenerative changes involving the DIP, PIP, and first carpometacarpal joint, most pronounced of the 2nd and 3rd DIP joints. No soft tissue abnormality is identified. 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 Reviewed, Interpreted and Dictated by Kristin Katz MD Transcribed by Melissa Mendoza Authenticated and [facility]
[2025-07-22 11:12] LABS: Alanine Aminotransferase 18 U/L (12-78); Albumin Level 4.1 g/dl (3.5-5.0); Alkaline Phosphatase 138 U/L (38-126); Anion Gap 9.5 mEq/L (5-15); Aspartate Amino Transferase 22 U/L (14-36); Bilirubin,Direct 0.1 mg/dl (0.0-0.4); Bilirubin,Indirect 0.3 mg/dL (0.0-0.9); Bilirubin,Total 0.4 mg/dl (0.2-1.3); Bilirubin,Unconjugated 0.3 mg/dL (0.0-1.1); Blood Urea Nitrogen 12 mg/dl (7-17); Calcium 9.8 mg/dl (8.4-10.2); Carbon Dioxide 31 mmol/L (22.0-30.0); Chloride 102 mmol/L (98-107); Cholesterol 161 mg/dl (140-200); Creatinine,Serum 0.60 mg/dl (0.52-1.04); Estimated Glomerular Filt Rate 105 ml/min (>60); GFR (African American) 127 ML/MIN (>60); Glucose 109 mg/dl (74-100); HDL Cholesterol 53 mg/dl (40-60); Magnesium 1.9 mg/dl (1.6-2.3); Potassium 4.5 mmoL/L (3.5-5.1); Sodium 138 mmol/L (136-145); Total Protein,Serum 6.7 g/dl (6.3-8.2); Triglycerides 107 mg/dl (30-150)
[2025-07-22 11:29] LABS: Free T4 (Free Thyroxine) 0.89 ng/dl (0.78-2.19)
[2025-07-22 11:42] LABS: Thyroid Stimulating Hormone 1.44 uIU/mL (0.465-4.68)
[2025-07-22 13:48] LABS: Hemoglobin A1C 6.2 % (4.0-6.0)
== END 2025-07-22 23:59 | disposition home or self-care (01) ==
PROVIDERS: Nurse Practitioner; PCP Nurse Practitioner Family; Visit Provider Physician Assistant
DX: M19.032 Primary osteoarthritis, left wrist (principal); M19.042 Primary osteoarthritis, left hand; M19.041 Primary osteoarthritis, right hand; I10 Essential (primary) hypertension; E11.9 Type 2 diabetes mellitus without complications; M25.512 Pain in left shoulder; E78.5 Hyperlipidemia, unspecified
CPT/HCPCS: 36415; 73030; 73110; 73130; 80048; 80061; 80076; 83036; 83735; 84439; 84443; 85025

== ENCOUNTER 2025-08-03 08:38 | Day surgery (SDC) | payer MEDICARE, SELFPAY ==
--- NOTE | 2025-08-03 08:41 | XR_ITS ---
FINAL REPORT CLINICAL HISTORY: right knee pain FINDINGS: AP, lateral and oblique views of the right knee were obtained. There is no prior exam for comparison. There is no acute osseous abnormality of the right knee. The joint space is preserved. The soft tissues are normal. There is no joint effusion. IMPRESSION: No acute osseous abnormality of the right knee. Reviewed, Interpreted and Dictated by Kathy Esqueda MD Transcribed by Melissa Mendoza Authenticated and [facility]
[2025-08-03 09:35] VITALS: BP 137/84; PULSE 60; RESP 16; O2SAT 98; BMI 30.2
[2025-08-03 09:45] VITALS: BP 124/68; PULSE 61; RESP 18; O2SAT 99
[2025-08-03] MEDS: BUPIVACAINE 0.25% 10ML INJ 25 MG IJ (09:49)
[2025-08-03] MEDS: LIDOCAINE 1% 5ML PF VIAL 5 ML (09:49)
[2025-08-03] MEDS: DEXAMETHASONE 10MG/ML 1ML VIAL 10 MG (09:49)
[2025-08-03 09:51] VITALS: BP 124/68; PULSE 48; RESP 18; O2SAT 99
--- NOTE | 2025-08-03 09:55 | P.PCN_ITS ---
Procedure Date: 08/03/25 Time: 09:40 Anesthesiologist:: Gurdeep Manzo CRNA Complications:: None Pre-procedure Diagnosis:: Right sacroiliitis. Right trochanteric bursitis. Post-procedure Diagnosis:: Same. Indications for Procedure:: Patient is a very pleasant 54-year-old female who comes to clinic today for a right sacroiliac joint injection of cortisone and local anesthetic. As well as right trochanteric bursa injection of cortisone and local anesthetic. She describes low lumbar back pain off the midline to the right. Right lateral hip pain. Right posterior hip pain. Right anterior thigh pain as well as the anterior compartment of the right knee. She rates her pain 8/10. Procedure Details:: Procedure: Right sacroliliac joint injection under fluoroscopy Informed consent was obtained and the risk and benefits of the procedure were explained to the patient.~ The patient was taken to the procedure room and noninvasive monitors were placed including noninvasive blood pressure cuff and pulse oximeter.~ The patient was placed prone on the procedure table.~ The~ right hip was cleansed using Betadine as a cleansing solution.~ C-arm fluorosocpy was used to view the right SI joint.~ The skin and subcutaneous tissues were anesthetized using Lidocaine 1.5% and a 25-gauge needle.~ After this, a 22-gauge spinal needle was inserted under fluoroscopic guidance into the inferior aspect of the right SI joint.~ Omnipaque dye was injected and a good spread was seen throughout the joint.~ After this, approximately 5 mL of bupivacaine 0.25% and dexamethasone 10 mg mg was incrementally injected into the sacroiliac joint.~ The patient tolerated the procedure well with no complications.~ The patient was observed in the Pain Clinic, then discharged home neurologically intact.~ Procedure: Right trochanteric bursa injection under fluoroscopy We then moved to the right trochanteric bursa.~ C-arm fluoroscopy was used to view the left greater trochanter.~ The skin and subcutaneous tissues overlying the right greater trochanter were anesthetized using lidocaine, 1.5% and a 25- gauge needle.~ After this, a 22-gauge spinal needle was inserted and advanced until it contacted the right greater trochanter.~ Dye was injected and good spread was seen throughout the right trochanteric bursa. After this, approximately 5 mL of bupivacaine, 0.25% and dexamethasone 10 mg was incrementally injected into the right right trochanteric bursa.~ The patient tolerated the procedure well with no complications. Plan and Disposition:: Patient was discharged without incident.
[2025-08-03 09:56] VITALS: BP 145/79; PULSE 61; RESP 16; O2SAT 99
== END 2025-08-03 09:56 | disposition home or self-care (01) ==
PROVIDERS: PCP Nurse Practitioner Family; Visit Provider Nurse Anesthetist, Certified Registered
DX: M70.61 Trochanteric bursitis, right hip (principal); M46.1 Sacroiliitis, not elsewhere classified; E78.5 Hyperlipidemia, unspecified; G47.33 Obstructive sleep apnea (adult) (pediatric); M19.071 Primary osteoarthritis, right ankle and foot; M19.072 Primary osteoarthritis, left ankle and foot; Z96.643 Presence of artificial hip joint, bilateral; Z90.711 Acquired absence of uterus with remaining cervical stump
CPT/HCPCS: 20610; 73562; G0260; J0665; J1100; J2003